=== PATIENT | male | born 1960 | race African-American/Black ===

== ENCOUNTER 2022-06-17 08:26 | Inpatient (IN) | payer OTHER, SELFPAY ==
[2022-06-17] VITALS (22 sets, daily range): BP systolic 131–178; BP diastolic 73–94; PULSE 61–74; RESP 12–24; TEMP 31–37.3; O2SAT 92–100; BMI 30.9
--- NOTE | ~2022-06-17 | XR_ITS ---
EXAMINATION: XR CHEST CLINICAL INFORMATION: TLC placement check COMPARISON: 06/17/2022 TECHNIQUE: Frontal view of the chest was obtained. FINDINGS: Right IJ central line tip lies in the region of the lower right internal jugular vein. The lungs are hypoinflated. Aeration at the retrocardiac left base appears mildly improved, with some residual opacity present. Similarly, right basilar aeration appears slightly improved, with residual heterogeneous opacity. No evidence of pneumothorax or significant pleural effusion. The cardiomediastinal contour is unremarkable. No acute osseous findings are seen. XR/XR chest 1V IMPRESSION: 1. Right IJ central line tip lies in the region of the lower right internal jugular vein. 2. Mildly improved bibasilar aeration compared to prior, with residual heterogeneous opacities.
--- NOTE | ~2022-06-17 | XR_ITS ---
EXAMINATION: XR CHEST CLINICAL INFORMATION: Post central line placement COMPARISON: Chest cribriform earlier today 06/17/2022 TECHNIQUE: Frontal view of the chest was obtained. FINDINGS: There is a new right jugular central line with its tip in the proximal SVC. Enteric tube tip is below diaphragm the stomach. Tip of endotracheal tube is 5.6 cm above the sydnie. The lungs are hyperinflated with patchy opacities in both lower lobes with dense consolidation in the left lung base retrocardiac area. Heart size and pulmonary vascularity is normal. No gross bony abnormality seen. XR/XR chest 1V IMPRESSION: 1. New right jugular central line with its tip in proximal SVC. No pneumothorax. 2. Enteric tube and endotracheal tube are in satisfactory position. 3. There is left lower lobe consolidation/atelectasis. There is a right lower lobe haziness similar to previous study.
--- NOTE | ~2022-06-17 | XR_ITS ---
EXAMINATION: XR CHEST CLINICAL INFORMATION: Altered mental status COMPARISON: None TECHNIQUE: Frontal view of the chest was obtained. FINDINGS: Endotracheal tube terminates approximately 7 cm above the level the sydnie. Enteric tube terminates below the level the diaphragm, beyond the parameters of today's chest x-ray. The cardiac silhouette is mildly enlarged. Lungs are mildly hypoinflated. Subtle diffuse opacity of the right hemithorax suggesting a layering effusion. No gross lobar consolidation identified. No pneumothorax. XR/XR chest 1V IMPRESSION: 1. Endotracheal tube terminates approximately 7 cm above the level the sydnie. 2. Suspected layering right-sided pleural effusion. This can be confirmed with CT imaging as clinically indicated.
--- NOTE | ~2022-06-17 | CT_ITS ---
EXAMINATION: CT CHEST, ABDOMEN AND PELVIS WITHOUT IV CONTRAST. CLINICAL INFORMATION: Unresponsive. COMPARISON: Chest x-ray performed earlier today at 06/17/2022 TECHNIQUE: 5 mm thin axial and reformatted 3 mm thin sagittal and coronal images of chest, abdomen and pelvis were obtained without contrast. DLP [id number]. This CT examination was performed using dose optimization technique as appropriate, variously including the following: Automated exposure control Adjustment of MA and/or KV according to patient size(this includes techniques or standardized protocols for targeted exams where dose is matched to indication/reason for exam; extremities or head. Use of iterative reconstruction techniques. FINDINGS: CHEST: LUNGS: There is compressive atelectatic changes right lower lobe and left lower lobe secondary to underlying effusion. Both upper lungs are otherwise well-expanded and clear. Mediastinum: Heart size and the great vessels are normal caliber. No abnormal size mediastinal or hilar lymph nodes seen. There are moderate coronary artery calcifications. No pericardial effusion seen. Central trachea and the bronchi are widely patent. There is an endotracheal tube with its tip 3.90 cm above the sydnie. Enteric tube is noted with its tip below the diaphragm. Pleura: There is moderate to large right and small left pleural effusions. No pleural calcifications or pneumothorax visualized. Axilla: There is no abnormal axillary lymph nodes. The chest wall appears unremarkable. Osseous structures: No aggressive lytic or sclerotic process seen. ABDOMEN AND PELVIS: Liver, ducts and gallbladder: The liver is normal size, contour and density. No focal lesion or intrahepatic ductal dilatation seen. The gallbladder is unremarkable. Spleen: Unremarkable. Pancreas: The pancreas is suboptimally visualized however appears unremarkable. Bilateral adrenal glands and kidneys: Bilateral adrenal glands are symmetric and normal. Both kidneys are normal size, shape and position. There are vascular calcifications in both kidneys. No hydronephrosis or radiopaque calculi suspected. Lymphovascular structures: The abdominal aorta is normal caliber but with scattered atherosclerotic calcifications. No abnormal size retroperitoneal lymph nodes seen. GI tract: There is scattered stool, diverticuli and gas seen throughout the colon without distention or diverticulitis. The small bowel loops are normal caliber. Appendix is not seen. There is large amount of ascites throughout the abdomen and pelvis. Abdominal wall: Unremarkable. Pelvis: There is large amount of free fluid in the pelvis. A Geronimo's catheter is noted in the bladder. Osseous structures: No aggressive lytic or sclerotic process seen. CT/CT abdomen pelvis wo IV con IMPRESSION: Diffuse ascites. Mild abdominal wall edema Moderate constipation with scattered diverticulosis. Moderate to large right pleural effusion and small left pleural effusion with underlying compressive atelectasis.
--- NOTE | ~2022-06-17 | CT_ITS ---
EXAMINATION: CT HEAD WITHOUT CONTRAST CLINICAL INFORMATION: Unresponsive. COMPARISON: None. TECHNIQUE: Multidetector volumetric imaging of the head was performed without intravenous contrast material. This CT examination was performed using dose optimization techniques as appropriate, variously including the following: *Automated exposure control *Adjustment of mA and/or kV according to patient size (this includes techniques or standardized protocols for targeted exams where dose is matched to indication/reason for exam; i.e. extremities or head) *Use of iterative reconstruction technique Dose: 865 mGy-cm FINDINGS: There is no evidence of acute intracranial hemorrhage or territorial infarction. No abnormal mass-effect or midline shift is seen. Azfar to white matter differentiation is well preserved. No extra axial fluid collections. The ventricles are normal in size and configuration. A few foci of hypoattenuation in the subcortical and periventricular white matter are most consistent with chronic microangiopathic changes. Calcific atherosclerosis is present within the cavernous segments of the internal carotid arteries. Generalized subcutaneous fat stranding is seen diffusely, likely due to anasarca. Tubes are in place in the oral cavity. Partial opacification of the right ethmoid air cells posteriorly. CT/CT head/brain wo IV con IMPRESSION: No acute intracranial pathology. Anasarca
--- NOTE | 2022-06-17 08:41 | ECG_ITS ---
Test Reason : unresponsive Blood Pressure : / mmHG Vent. Rate : 066 BPM Atrial Rate : 066 BPM P-R Int : 142 ms QRS Dur : 104 ms QT Int : 476 ms P-R-T Axes : 087 078 004 degrees QTc Int : 499 ms Normal sinus rhythm Prolonged QT Nonspecific T wave abnormality Abnormal ECG No previous ECGs available Referred By: Lillian Benz Electronically Signed By:MAGAN MASON MD
[2022-06-17 08:44] LABS: Glucose, Whole Blood 65 mg/dL (60-115)
[2022-06-17 08:56] LABS: MANUAL DIFF FLAG NO
[2022-06-17 08:58] LABS: Venous Blood Gas Refer to POC result
[2022-06-17 09:01] LABS: Basophils Absolute Auto 0.1 X10*3/uL (0.0-0.2); Eosinophils Absolute Auto 0.7 X10*3/uL (0.0-0.4); Eosinophils Percent Auto 13.8 % (0-4); Hematocrit 28.8 % (42.0-52.0); Hemoglobin 8.9 g/dl (14.0-18.0); Imm Gran Abs Auto 0.02 X10*3/uL (0.00-0.03); Imm Gran Pct Auto 0.4 % (0.0-0.4); Lymphocytes Absolute Auto 0.7 X10*3/uL (1.2-4.9); Lymphocytes Percent Auto 14.2 % (20-40); Mean Corpuscular HGB Conc 30.9 g/dl (31.0-36.0); Mean Corpuscular Hemoglobin 29.3 pg (27.0-33.0); Mean Corpuscular Volume 94.7 fL (80.0-98.0); Mean Platelet Volume 9.3 fL (9.4-12.4); Monocytes Absolute Auto 0.4 X10*3/uL (0.1-1.2); Monocytes Percent Auto 8.3 % (2-11); Neutrophils Absolute Auto 3.1 x10*3/uL (2.0-8.3); Neutrophils Percent Auto 62.3 % (45-73); Platelet Count 179 X10*3/uL (160-400); Red Blood Count 3.04 X10*6/uL (4.60-5.80); Red Cell Distribution Width 16.5 % (11.0-16.0); White Blood Count 4.9 X10*3/uL (4.8-10.8)
--- NOTE | 2022-06-17 09:01 | ED_ITS ---
HPI - Altered Mental Status General Chief Complaint: Altered Mental Status Stated Complaint: unresponsive Time Seen by Provider: 06/17/22 08:30 Source: EMS and old records reviewed Mode of arrival: EMS Limitations: altered mental status (Unresponsive.) History of Present Illness HPI narrative: 62-year-old male known history of end-stage renal disease and type 1 diabetes on insulin patient came in from [facility] after was found unresponsive and blood sugar was 30 attempt to give the patient oral glucagon and was transported to the hospital, patient in hospital is unresponsive with absence of gag reflex was a frothy bronchial secretion, patient unresponsive to neither verbal or painful stimuli. Patient was intubated and the patient chart was reviewed no old record in our hospital. Recent [facility] hospitalization for sepsis. Related Data Home Medications Medication Instructions Recorded Confirmed amlodipine 10 mg tablet 1 tab PO QAM 06/17/22 06/17/22 atorvastatin 80 mg tablet 1 tab PO DAILY 06/17/22 06/17/22 calcitriol 0.5 mcg capsule 1 mcg PO MOWEFR 06/17/22 06/17/22 carvedilol 25 mg tablet 1 tab PO BID 06/17/22 06/17/22 cholecalciferol (vitamin D3) 1,250 1,250 mcg PO QMONTH 06/17/22 06/17/22 mcg (50,000 unit) tablet clonidine 0.3 mg/24 hr weekly 0.3 mg topical SA 06/17/22 06/17/22 transdermal patch duloxetine 60 mg capsule,delayed 1 cap PO DAILY 06/17/22 06/17/22 release gabapentin 300 mg capsule 1 cap PO DAILY 06/17/22 06/17/22 insulin glargine 100 unit/mL 10 unit subcut BEDTIME 06/17/22 06/17/22 subcutaneous solution insulin lispro 100 unit/mL 1 sliding scale dose subcut 06/17/22 06/17/22 subcutaneous solution (Humalog USEASDIRECTD U-100 Insulin) losartan 100 mg tablet 100 mg PO BID 06/17/22 06/17/22 mirtazapine 15 mg tablet 1 tab PO BEDTIME 06/17/22 06/17/22 multivitamin 1 tab PO DAILY 06/17/22 06/17/22 tamsulosin 0.4 mg capsule 1 cap PO BEDTIME 06/17/22 06/17/22 trazodone 50 mg tablet 1 tab PO BEDTIME 06/17/22 06/17/22 Allergies Allergy/AdvReac Type Severity Reaction Status Date / Time No Known Allergies Allergy Verified 06/17/22 08:41 Review of Systems Review of Systems: Yes Unobtainable due to mental status (Unresponsive) [facility] Social History Social History Advance Directives: No Advance Directives Information Provided: No Physical Exam ED Vital Signs: Vital Signs - 24 hr 06/17/22 08:45 06/17/22 09:03 06/17/22 09:04 Temperature 93 F L Pulse Rate 70 63 63 Respiratory Rate 24 H 14 12 Blood Pressure 167/88 H 163/86 H 163/86 H Pulse Oximetry 92 100 100 Oxygen Delivery Method Nasal Cannula Ambu-Bag Fraction of Inspired Oxygen 06/17/22 09:14 06/17/22 09:22 06/17/22 09:26 Temperature 93 F L Pulse Rate 62 61 Respiratory Rate 16 16 Blood Pressure 146/80 H 144/73 H Pulse Oximetry 100 100 Oxygen Delivery Method Ambu-Bag Fraction of Inspired Oxygen 50 06/17/22 09:52 Temperature 93.4 F L Pulse Rate 62 Respiratory Rate 14 Blood Pressure 147/75 H Pulse Oximetry 100 Oxygen Delivery Method Mechanical Ventilation Fraction of Inspired Oxygen BMI result Body Mass Index 30.9 Vital signs have been reviewed as appeared to be correct. Blood pressure normal. Heart rate normal. Respiration rate normal. Temperature normal. Oxygen saturation normal. Appearance: Unresponsive to verbal, or painful stimuli. Head: Normal external exam. Normocephalic. Atraumatic. No Ramos signs noted. No raccoon eyes noted Eyes: 3 mm nonreactive bilaterally. ENT: TM's Normal. Pharynx normal. Uvula midline. No gag reflex. Neck: Normal inspection. Neck supple. FROM. No adenopathy. Thyroid Normal. No meningeal signs. No neck mass noted. CVS: Normal heart rate and rhythm. Heart sound normal. No murmurs noted. Pulses normal throughout. Respiratory: No respiratory distress. Able to sustain spontaneous breathing with no gag reflex, copious frothy bronchial secretion clear. Abdomen: Soft and nontender. Bowel sounds normal in all 4 quadrants. No distention noted. No organomegaly noted. No visible injury noted. Back: No CVA tenderness. Full range of motion noted. Skin: Skin warm and dry. Normal skin color. Normal skin turgor. No rashes/lesions/lacerations noted. Extremities: No lower extremity edema. Extremities exhibit normal range of motion. Extremities nontender. Neuro: Oriented X 3. Cranial nerve exam: II-XII are grossly intact No motor deficit. No sensory deficit. Reflexes normal. Course Course Course Narrative: 62-year-old male insulin-dependent diabetes and end-stage renal disease presented after [facility]responsive at the [facility] no witnessed seizure reported by the staff patient require intubation since absence of gag reflex and question of protecting his airway. Exam is consistent with volume overload will consider dialysis. ET with ventilatory support. Patient is hypothermic will cover with empirical antibiotic but no evidence of severe sepsis or septic shock at this point. Patient granted a dose of Zosyn as well covered in antibiotic. Reevaluation(s) Reevaluation #1: Case discussed with Dr. Ronquillo and was accepted to ICU. Case discussed with Dr. Borrego for emergent dialysis. Time: : Medications Administered Generic Name Dose Route Start Last Admin Trade Name Freq PRN Reason Stop Dose Admin Dextrose 25 gm 06/17/22 10:47 06/17/22 11:55 Dextrose 50 % 25 Gm/50 Ml Syringe IVPUSH 25 gm Q15M PRN Administration per Hypoglycemia Standing Ord. Protocol Propofol 1,000 mg in 100 mls @ 0 mls/hr 06/17/22 09:00 06/17/22 09:03 Diprivan IVCONT 30 mcg/kg/min .Q0M ESTELA 16.11 mls/hr Administration Protocol Per Protocol Discontinued Medications Generic Name Dose Route Start Last Admin Trade Name Freq PRN Reason Stop Dose Admin Dextrose 25 gm 06/17/22 08:50 06/17/22 09:03 Dextrose 50 % 25 Gm/50 Ml Syringe IVPUSH 06/17/22 08:51 25 gm ONCE ONE Administration Furosemide 40 mg 06/17/22 08:55 06/17/22 09:13 Furosemide 40 Mg/4 Ml Vial IVPUSH 06/17/22 08:56 40 mg ONCE ONE Administration Protocol Nitroglycerin 1 inch 06/17/22 08:55 06/17/22 09:09 Nitroglycerin 2 % Oint 1 Gm Packet TRANSDERMA 06/17/22 08:56 1 inch ONCE ONE Administration MDM - Altered Mental Status Lab Data Attestation: I reviewed the patient's lab results. Result diagrams: 06/17/22 08:48 06/17/22 08:48 Labs: Lab Results 06/17/22 06/17/22 06/17/22 Range/Units 08:40 08:46 08:48 WBC 4.9 (4.8-10.8) X10*3/uL RBC 3.04 L (4.60-5.80) X10*6/uL Hgb 8.9 L (14.0-18.0) g/dl Hct 28.8 L (42.0-52.0) % MCV 94.7 (80.0-98.0) fL MCH 29.3 (27.0-33.0) pg MCHC 30.9 L (31.0-36.0) g/dl RDW 16.5 H (11.0-16.0) % Plt Count 179 (160-400) X10*3/uL MPV 9.3 L (9.4-12.4) fL Immature Gran % (Auto) 0.4 (0.0-0.4) % Neut % (Auto) 62.3 (45-73) % Lymph % (Auto) 14.2 L (20-40) % [place] % (Auto) 8.3 (2-11) % Eos % (Auto) 13.8 H (0-4) % Baso % (Auto) 1.0 (0-2) % Lymph # (Auto) 0.7 L (1.2-4.9) X10*3/uL [place] # (Auto) 0.4 (0.1-1.2) X10*3/uL Eos # (Auto) 0.7 H (0.0-0.4) X10*3/uL Baso # (Auto) 0.1 (0.0-0.2) X10*3/uL Abs Immat Gran (auto) 0.02 (0.00-0.03) X10*3/uL Absolute Neuts (auto) 3.1 (2.0-8.3) x10*3/uL Absolute Nucleated RBC 0.000 (0.0-0.012) X10*3/uL Nucleated RBC % (auto) 0.0 (0.0-0.2) /100WBC PT (10.0-13.1) SEC INR (0.9-1.1) VBG pH 7.39 (7.32-7.43) VBG pCO2 55 mmHg VBG pO2 100 mmHg VBG HCO3 33 H (22-26) mmol/L VBG O2 Saturation 100.3 % VBG Base Excess 7.3 mmol/L Sodium (135-145) mmol/L Potassium (3.3-5.1) mmol/L Chloride (96-108) mmol/L Carbon Dioxide (22-29) mmol/L Anion Gap (12-20) BUN (9-16) mg/dL Creatinine (0.5-1.4) mg/dL Estim Creat Clear Calc Estimated GFR POC Glucose 65 (60-115) mg/dL Random Glucose (60-115) mg/dL Lactic Acid (0.5-2.0) mmol/L Calcium (8.4-10.2) mg/dL Magnesium (1.6-2.6) mg/dL Total Bilirubin (0.0-1.0) mg/dL Direct Bilirubin (0.0-0.5) mg/dL AST (5-37) U/L ALT (0-40) U/L Alkaline Phosphatase (39-117) U/L Total Creatine Kinase (38-174) U/L Troponin I High Sens (<3.5-35.0) ng/L B-Natriuretic Peptide (<100) pg/mL Total Protein (6.5-8.0) g/dL Albumin (3.5-5.0) g/dL Lipase (8-78) U/L Urine Color Urine Appearance Urine pH (5.0-9.0) Ur Specific [place] (1.005-1.025) Urine Protein (Neg-Trace) mg/dL Urine Glucose (UA) (Negative) mg/dL Urine Ketones (Negative) mg/dL Urine Blood (Negative) Urine Nitrite (Negative) Ur Leukocyte Esterase (Negative) Urine RBC (0-2) /HPF Urine WBC (0-5) /HPF Ur Squamous Epith Cells (0-2) /HPF Ur Renal Epithelial Cell Urine Bacteria (None Seen) Hyaline Casts (0-2) /LPF Urine Opiates Screen (Not Detect) Urine Fentanyl Screen (Not Detect) Ur Barbiturates Screen (Not Detect) Ur Phencyclidine Scrn (Not Detect) Ur Amphetamines Screen (Not Detect) U Benzodiazepines Scrn (Not Detect) Urine Cocaine Screen (Not Detect) U Marijuana (THC) Screen (Not Detect) COVID-19 (LAKISHA) (Negative) COVID-19 Clin Com 06/17/22 06/17/22 06/17/22 Range/Units 08:48 08:48 08:48 WBC (4.8-10.8) X10*3/uL RBC (4.60-5.80) X10*6/uL Hgb (14.0-18.0) g/dl Hct (42.0-52.0) % MCV (80.0-98.0) fL MCH (27.0-33.0) pg MCHC (31.0-36.0) g/dl RDW (11.0-16.0) % Plt Count (160-400) X10*3/uL MPV (9.4-12.4) fL Immature Gran % (Auto) (0.0-0.4) % Neut % (Auto) (45-73) % Lymph % (Auto) (20-40) % [place] % (Auto) (2-11) % Eos % (Auto) (0-4) % Baso % (Auto) (0-2) % Lymph # (Auto) (1.2-4.9) X10*3/uL [place] # (Auto) (0.1-1.2) X10*3/uL Eos # (Auto) (0.0-0.4) X10*3/uL Baso # (Auto) (0.0-0.2) X10*3/uL Abs Immat Gran (auto) (0.00-0.03) X10*3/uL Absolute Neuts (auto) (2.0-8.3) x10*3/uL Absolute Nucleated RBC (0.0-0.012) X10*3/uL Nucleated RBC % (auto) (0.0-0.2) /100WBC PT 13.6 H (10.0-13.1) SEC INR 1.2 H (0.9-1.1) VBG pH (7.32-7.43) VBG pCO2 mmHg VBG pO2 mmHg VBG HCO3 (22-26) mmol/L VBG O2 Saturation % VBG Base Excess mmol/L Sodium 133 L (135-145) mmol/L Potassium 3.3 (3.3-5.1) mmol/L Chloride 95 L (96-108) mmol/L Carbon Dioxide 31 H (22-29) mmol/L Anion Gap 10 L (12-20) BUN 26 H (9-16) mg/dL Creatinine 4.20 H* (0.5-1.4) mg/dL Estim Creat Clear Calc 19.9 Estimated GFR 15 POC Glucose (60-115) mg/dL Random Glucose 61 (60-115) mg/dL Lactic Acid 0.8 (0.5-2.0) mmol/L Calcium 8.8 (8.4-10.2) mg/dL Magnesium 1.8 (1.6-2.6) mg/dL Total Bilirubin 0.6 (0.0-1.0) mg/dL Direct Bilirubin 0.2 (0.0-0.5) mg/dL AST 19 (5-37) U/L ALT 10 (0-40) U/L Alkaline Phosphatase 104 (39-117) U/L Total Creatine Kinase 93 (38-174) U/L Troponin I High Sens (<3.5-35.0) ng/L B-Natriuretic Peptide (<100) pg/mL Total Protein 7.1 (6.5-8.0) g/dL Albumin 3.6 (3.5-5.0) g/dL Lipase 18 (8-78) U/L Urine Color Urine Appearance Urine pH (5.0-9.0) Ur Specific [place]yer[place] (1.005-1.025) Urine Protein (Neg-Trace) mg/dL Urine Glucose (UA) (Negative) mg/dL Urine Ketones (Negative) mg/dL Urine Blood (Negative) Urine Nitrite (Negative) Ur Leukocyte Esterase (Negative) Urine RBC (0-2) /HPF Urine WBC (0-5) /HPF Ur Squamous Epith Cells (0-2) /HPF Ur Renal Epithelial Cell Urine Bacteria (None Seen) Hyaline Casts (0-2) /LPF Urine Opiates Screen (Not Detect) Urine Fentanyl Screen (Not Detect) Ur Barbiturates Screen (Not Detect) Ur Phencyclidine Scrn (Not Detect) Ur Amphetamines Screen (Not Detect) U Benzodiazepines Scrn (Not Detect) Urine Cocaine Screen (Not Detect) U Marijuana (THC) Screen (Not Detect) COVID-19 (LAKISHA) (Negative) COVID-19 Clin Com 06/17/22 06/17/22 06/17/22 Range/Units 08:48 08:48 08:48 WBC (4.8-10.8) X10*3/uL RBC (4.60-5.80) X10*6/uL Hgb (14.0-18.0) g/dl Hct (42.0-52.0) % MCV (80.0-98.0) fL MCH (27.0-33.0) pg MCHC (31.0-36.0) g/dl RDW (11.0-16.0) % Plt Count (160-400) X10*3/uL MPV (9.4-12.4) fL Immature Gran % (Auto) (0.0-0.4) % Neut % (Auto) (45-73) % Lymph % (Auto) (20-40) % [place] % (Auto) (2-11) % Eos % (Auto) (0-4) % Baso % (Auto) (0-2) % Lymph # (Auto) (1.2-4.9) X10*3/uL [place] # (Auto) (0.1-1.2) X10*3/uL Eos # (Auto) (0.0-0.4) X10*3/uL Baso # (Auto) (0.0-0.2) X10*3/uL Abs Immat Gran (auto) (0.00-0.03) X10*3/uL Absolute Neuts (auto) (2.0-8.3) x10*3/uL Absolute Nucleated RBC (0.0-0.012) X10*3/uL Nucleated RBC % (auto) (0.0-0.2) /100WBC PT (10.0-13.1) SEC INR (0.9-1.1) VBG pH (7.32-7.43) VBG pCO2 mmHg VBG pO2 mmHg VBG HCO3 (22-26) mmol/L VBG O2 Saturation % VBG Base Excess mmol/L Sodium (135-145) mmol/L Potassium (3.3-5.1) mmol/L Chloride (96-108) mmol/L Carbon Dioxide (22-29) mmol/L Anion Gap (12-20) BUN (9-16) mg/dL Creatinine (0.5-1.4) mg/dL Estim Creat Clear Calc Estimated GFR POC Glucose (60-115) mg/dL Random Glucose (60-115) mg/dL Lactic Acid (0.5-2.0) mmol/L Calcium (8.4-10.2) mg/dL Magnesium (1.6-2.6) mg/dL Total Bilirubin (0.0-1.0) mg/dL Direct Bilirubin (0.0-0.5) mg/dL AST (5-37) U/L ALT (0-40) U/L Alkaline Phosphatase (39-117) U/L Total Creatine Kinase (38-174) U/L Troponin I High Sens 13.0 (<3.5-35.0) ng/L B-Natriuretic Peptide 3555 H (<100) pg/mL Total Protein (6.5-8.0) g/dL Albumin (3.5-5.0) g/dL Lipase (8-78) U/L Urine Color Urine Appearance Urine pH (5.0-9.0) Ur Specific [place] (1.005-1.025) Urine Protein (Neg-Trace) mg/dL Urine Glucose (UA) (Negative) mg/dL Urine Ketones (Negative) mg/dL Urine Blood (Negative) Urine Nitrite (Negative) Ur Leukocyte Esterase (Negative) Urine RBC (0-2) /HPF Urine WBC (0-5) /HPF Ur Squamous Epith Cells (0-2) /HPF Ur Renal Epithelial Cell Urine Bacteria (None Seen) Hyaline Casts (0-2) /LPF Urine Opiates Screen (Not Detect) Urine Fentanyl Screen (Not Detect) Ur Barbiturates Screen (Not Detect) Ur Phencyclidine Scrn (Not Detect) Ur Amphetamines Screen (Not Detect) U Benzodiazepines Scrn (Not Detect) Urine Cocaine Screen (Not Detect) U Marijuana (THC) Screen (Not Detect) COVID-19 (LAKISHA) Negative (Negative) COVID-19 Clin Com See Note 06/17/22 06/17/22 Range/Units 09:06 09:06 WBC (4.8-10.8) X10*3/uL RBC (4.60-5.80) X10*6/uL Hgb (14.0-18.0) g/dl Hct (42.0-52.0) % MCV (80.0-98.0) fL MCH (27.0-33.0) pg MCHC (31.0-36.0) g/dl RDW (11.0-16.0) % Plt Count (160-400) X10*3/uL MPV (9.4-12.4) fL Immature Gran % (Auto) (0.0-0.4) % Neut % (Auto) (45-73) % Lymph % (Auto) (20-40) % [place] % (Auto) (2-11) % Eos % (Auto) (0-4) % Baso % (Auto) (0-2) % Lymph # (Auto) (1.2-4.9) X10*3/uL [place] # (Auto) (0.1-1.2) X10*3/uL Eos # (Auto) (0.0-0.4) X10*3/uL Baso # (Auto) (0.0-0.2) X10*3/uL Abs Immat Gran (auto) (0.00-0.03) X10*3/uL Absolute Neuts (auto) (2.0-8.3) x10*3/uL Absolute Nucleated RBC (0.0-0.012) X10*3/uL Nucleated RBC % (auto) (0.0-0.2) /100WBC PT (10.0-13.1) SEC INR (0.9-1.1) VBG pH (7.32-7.43) VBG pCO2 mmHg VBG pO2 mmHg VBG HCO3 (22-26) mmol/L VBG O2 Saturation % VBG Base Excess mmol/L Sodium (135-145) mmol/L Potassium (3.3-5.1) mmol/L Chloride (96-108) mmol/L Carbon Dioxide (22-29) mmol/L Anion Gap (12-20) BUN (9-16) mg/dL Creatinine (0.5-1.4) mg/dL Estim Creat Clear Calc Estimated GFR POC Glucose (60-115) mg/dL Random Glucose (60-115) mg/dL Lactic Acid (0.5-2.0) mmol/L Calcium (8.4-10.2) mg/dL Magnesium (1.6-2.6) mg/dL Total Bilirubin (0.0-1.0) mg/dL Direct Bilirubin (0.0-0.5) mg/dL AST (5-37) U/L ALT (0-40) U/L Alkaline Phosphatase (39-117) U/L Total Creatine Kinase (38-174) U/L Troponin I High Sens (<3.5-35.0) ng/L B-Natriuretic Peptide (<100) pg/mL Total Protein (6.5-8.0) g/dL Albumin (3.5-5.0) g/dL Lipase (8-78) U/L Urine Color Yellow Urine Appearance Clear Urine pH 7.5 (5.0-9.0) Ur Specific [place] 1.010 (1.005-1.025) Urine Protein 300 (3+) H (Neg-Trace) mg/dL Urine Glucose (UA) 100 H (Negative) mg/dL Urine Ketones Negative (Negative) mg/dL Urine Blood Small (1+) H (Negative) Urine Nitrite Negative (Negative) Ur Leukocyte Esterase Negative (Negative) Urine RBC 6-10 H (0-2) /HPF Urine WBC 0-5 (0-5) /HPF Ur Squamous Epith Cells 3-5 (0-2) /HPF Ur Renal Epithelial Cell Present Urine Bacteria None Seen (None Seen) Hyaline Casts 0-2 (0-2) /LPF Urine Opiates Screen Not Detected (Not Detect) Urine Fentanyl Screen Not Detected (Not Detect) Ur Barbiturates Screen Not Detected (Not Detect) Ur Phencyclidine Scrn Not Detected (Not Detect) Ur Amphetamines Screen Not Detected (Not Detect) U Benzodiazepines Scrn Not Detected (Not Detect) Urine Cocaine Screen Not Detected (Not Detect) U Marijuana (THC) Screen Not Detected (Not Detect) COVID-19 (LAKISHA) (Negative) COVID-19 Clin Com Imaging Data Head CT: Attestation: I personally reviewed and interpreted this imaging study as follows: Radiologist's impression: No acute intracranial pathology. Anasarca ? Chest CT: Attestation: I personally reviewed and interpreted this imaging study as follows: Radiologist's impression: Diffuse ascites. Mild abdominal wall edema ? Moderate constipation with scattered diverticulosis. ? Moderate to large right pleural effusion and small left pleural effusion with underlying compressive atelectasis. Procedures Central Line Placement Right IJ: Time Out Performed: Yes Patient Placed on Monitor/Pulse Ox: Yes MD Prep: mask, gown and gloves Central Line Prep: Chlorhexidine scrub Local Anesthetic: lidocaine 1% Amount of anesthesia used (mL): 1 Ultrasound Used for Placement: Yes Central Line Lumen Inserted: triple Post Procedure: sutured in place, good blood return, all ports aspirated, flushed, capped (The brown port is flushing but no blood return.) and sterile dressing applied Post Procedure X-Ray: tip of catheter in good position Patient Tolerated Procedure: well Complications: none Intubation Time out performed: Yes sedative: none Laryngoscope: Hunter ET Tube Size: 7.5 ET Tube Uncuffed: No Tube Secured Depth (cm): 26 Tube Secured Location: lips Tube Placement Confirmation: visualized tube passing through cords, equal breath sounds bilaterally, no breath sounds over epigastrium and confirmation by capnometry Patient Tolerated Procedure: well Intubation Complications: none Critical Care Time Critical Care Time Critical Care Time: Yes Total Critical Care Time: 60 Attestation: I spent 60 minutes providing critical care service to the patient, this including time spent at the bedside to evaluate the patient, reassess the patient, monitoring vital signs, review labs, and radiographic studies, counseling the patient/family, discussing the case with consultants, disposition the patient. Discharge Plan Discharge Clinical Impression: ESRD (end stage renal disease) on dialysis, Hypoglycemia, Unresponsive, Hypothermia Patient Disposition: Admitted As Inpatient
[2022-06-17] MEDS: Dextrose 50 % 25 GM/50 ML SYRINGE IVPUSH ×9 (09:03→22:48)
[2022-06-17] MEDS: propofoL 1,000 MG/100 ML VIAL 16.11 MG IVCONT ×2 (09:03→13:34)
[2022-06-17] MEDS: Nitroglycerin 2 % Oint 1 GM Packet 1 INCH TRANSDERMA (09:09)
[2022-06-17] MEDS: Furosemide 40 MG/4 ML VIAL IVPUSH (09:13)
[2022-06-17 09:15] LABS: Lactic Acid 0.8 mmol/L (0.5-2.0)
[2022-06-17 09:15] LABS: Appearance Urine Clear; Color Urine Yellow; Glucose Urine UA 100 mg/dL (Negative); Leukocyte Esterase Urine Negative (Negative); Nitrite Urine Negative (Negative); PH 7.5 (5.0-9.0); UMIC TRIGGER UACC YES; Urine Blood Small (1+) (Negative); Urine Ketones Negative (Negative); Urine Protein 300 (3+) mg/dL (Neg-Trace)
--- NOTE | 2022-06-17 09:15 | PC.NURSE ---
INTUBATED BY DR FOOTE WITHOUT DIFFICULTY, GLIDE SCOPE UTILIZED , 7.5 ET tube 26 at the lip. confirmed by ETCO2 AND AUSCULTATION OG TUBE PLACED
[2022-06-17 09:23] LABS: COVID-19 Test Negative (Negative); IDNOW Serial# 9DB6401D; INTERNATIONAL NORM RATIO 1.2 (0.9-1.1); Prothrombin Time 13.6 SEC (10.0-13.1)
[2022-06-17 09:23] LABS: VBG Base Excess 7.3 mmol/L; VBG pCO2 55 mmHg; VBG pH 7.39 (7.32-7.43); VBG pO2 100 mmHg
[2022-06-17 09:24] LABS: VBG HCO3 33 mmol/L (22-26); VBG O2 % Saturation 100.3 %
[2022-06-17 09:26] LABS: Amphetamine Screen Urine Not Detected (Not Detect); Barbiturates, Urine Not Detected (Not Detect); Benzodiazepines Screen Urine Not Detected (Not Detect); Cannabinoid Screen Urine Not Detected (Not Detect); Cocaine Screen Urine Not Detected (Not Detect); Fentanyl, urine Not Detected (Not Detect); Opiate Screen Urine Not Detected (Not Detect); Phencyclidine Screen Urine Not Detected (Not Detect); WBC Urine 0-5 /HPF (0-5)
[2022-06-17 09:27] LABS: Bacteria Urine None Seen (None Seen); Hyaline Casts Urine 0-2 /LPF (0-2); Renal Epithelial Cells Urine Present
[2022-06-17 09:32] LABS: Alanine Aminotransferase 10 U/L (0-40); Albumin Level 3.6 g/dL (3.5-5.0); Alkaline Phosphatase 104 U/L (39-117); Anion Gap 10 (12-20); Aspartate Amino Transferase 19 U/L (5-37); Bilirubin Direct 0.2 mg/dL (0.0-0.5); Bilirubin Total 0.6 mg/dL (0.0-1.0); Blood Urea Nitrogen 26 mg/dL (9-16); Calcium 8.8 mg/dL (8.4-10.2); Carbon Dioxide 31 mmol/L (22-29); Chloride 95 mmol/L (96-108); Creatinine Clr Calc Pharmacy 19.9; Estimated Glomerular Filt Rate 15; Glucose Random 61 mg/dL (60-115); Lipase 18 U/L (8-78); Magnesium 1.8 mg/dL (1.6-2.6); Potassium 3.3 mmol/L (3.3-5.1); Sodium 133 mmol/L (135-145); Total Protein 7.1 g/dL (6.5-8.0)
--- NOTE | 2022-06-17 09:32 | PM.PNNEP ---
Subjective Subjective Date of Service: 06/17/22 Physical Exam Vital Signs: Vital Signs: Last Vital Signs Temp 93 F L 06/17/22 09:14 Pulse 61 06/17/22 09:26 Resp 16 06/17/22 09:26 BP 144/73 H 06/17/22 09:26 Pulse Ox 100 06/17/22 09:26 O2 Del Method 06/17/22 09:14 Oxygen Flow Rate 7 06/17/22 08:45 BMI result Body Mass Index 30.9 Objective Data Labs CBC & Chem 7: 06/17/22 08:48 06/17/22 08:48 Labs: Laboratory Results - last 24 hr 06/17/22 06/17/22 06/17/22 08:40 08:46 08:48 WBC 4.9 RBC 3.04 L Hgb 8.9 L Hct 28.8 L MCV 94.7 MCH 29.3 MCHC 30.9 L RDW 16.5 H Plt Count 179 MPV 9.3 L Immature Gran % (Auto) 0.4 Neut % (Auto) 62.3 Lymph % (Auto) 14.2 L Summers % (Auto) 8.3 Eos % (Auto) 13.8 H Baso % (Auto) 1.0 Lymph # (Auto) 0.7 L [place] # (Auto) 0.4 Eos # (Auto) 0.7 H Baso # (Auto) 0.1 Abs Immat Gran (auto) 0.02 Absolute Neuts (auto) 3.1 Absolute Nucleated RBC 0.000 Nucleated RBC % (auto) 0.0 PT INR VBG pH 7.39 VBG pCO2 55 VBG pO2 100 VBG HCO3 33 H VBG O2 Saturation 100.3 VBG Base Excess 7.3 POC Glucose 65 Lactic Acid Troponin I High Sens Urine Color Urine Appearance Urine pH Ur Specific [place] Urine Protein Urine Glucose (UA) Urine Ketones Urine Blood Urine Nitrite Ur Leukocyte Esterase Urine RBC Urine WBC Ur Squamous Epith Cells Ur Renal Epithelial Cell Urine Bacteria Hyaline Casts Urine Opiates Screen Urine Fentanyl Screen Ur Barbiturates Screen Ur Phencyclidine Scrn Ur Amphetamines Screen U Benzodiazepines Scrn Urine Cocaine Screen U Marijuana (THC) Screen COVID-19 (LAKISHA) COVID-19 Clin Com 06/17/22 06/17/22 06/17/22 08:48 08:48 08:48 WBC RBC Hgb Hct MCV MCH MCHC RDW Plt Count MPV Immature Gran % (Auto) Neut % (Auto) Lymph % (Auto) [place] % (Auto) Eos % (Auto) Baso % (Auto) Lymph # (Auto) [place] # (Auto) Eos # (Auto) Baso # (Auto) Abs Immat Gran (auto) Absolute Neuts (auto) Absolute Nucleated RBC Nucleated RBC % (auto) PT 13.6 H INR 1.2 H VBG pH VBG pCO2 VBG pO2 VBG HCO3 VBG O2 Saturation VBG Base Excess POC Glucose Lactic Acid 0.8 Troponin I High Sens 13.0 Urine Color Urine Appearance Urine pH Ur Specific [place] Urine Protein Urine Glucose (UA) Urine Ketones Urine Blood Urine Nitrite Ur Leukocyte Esterase Urine RBC Urine WBC Ur Squamous Epith Cells Ur Renal Epithelial Cell Urine Bacteria Hyaline Casts Urine Opiates Screen Urine Fentanyl Screen Ur Barbiturates Screen Ur Phencyclidine Scrn Ur Amphetamines Screen U Benzodiazepines Scrn Urine Cocaine Screen U Marijuana (THC) Screen COVID-19 (LAKISHA) COVID-19 Clin Com 06/17/22 06/17/22 06/17/22 08:48 09:06 09:06 WBC RBC Hgb Hct MCV MCH MCHC RDW Plt Count MPV Immature Gran % (Auto) Neut % (Auto) Lymph % (Auto) [place] % (Auto) Eos % (Auto) Baso % (Auto) Lymph # (Auto) [place] # (Auto) Eos # (Auto) Baso # (Auto) Abs Immat Gran (auto) Absolute Neuts (auto) Absolute Nucleated RBC Nucleated RBC % (auto) PT INR VBG pH VBG pCO2 VBG pO2 VBG HCO3 VBG O2 Saturation VBG Base Excess POC Glucose Lactic Acid Troponin I High Sens Urine Color Yellow Urine Appearance Clear Urine pH 7.5 Ur Specific [place]our[place] 1.010 Urine Protein 300 (3+) H Urine Glucose (UA) 100 H Urine Ketones Negative Urine Blood Small (1+) H Urine Nitrite Negative Ur Leukocyte Esterase Negative Urine RBC 6-10 H Urine WBC 0-5 Ur Squamous Epith Cells 3-5 Ur Renal Epithelial Cell Present Urine Bacteria None Seen Hyaline Casts 0-2 Urine Opiates Screen Not Detected Urine Fentanyl Screen Not Detected Ur Barbiturates Screen Not Detected Ur Phencyclidine Scrn Not Detected Ur Amphetamines Screen Not Detected U Benzodiazepines Scrn Not Detected Urine Cocaine Screen Not Detected U Marijuana (THC) Screen Not Detected COVID-19 ([facility]) Negative COVID-19 Clin Com See Note Procedures Date of Service Date of Service: 06/17/22 Assessment & Plan Assessment and plan (1) ESRD (end stage renal disease) on dialysis: Status: Acute Assessment and Plan: well know to me goes to [facility] admitted with flash PE and now intubated in the ICU urgent HD ordered with fluid removaL Has had multiple recurrent admissions at [facility] with similar presentations Time Spent With Patient Time: Total time spent is greater than 50% in coordination of care (as documented) at patient's floor/unit and/or counseling patient:
[2022-06-17 09:33] LABS: B Type Natriuretic Peptide 3555 pg/mL (<100)
--- NOTE | 2022-06-17 10:06 | PC.RT ---
Pt arrive ED unresponsive, intubated by with 7.5 ETT x one attempt without diff. Tube placement confirmed bilat LS, condensate, ETCO2 and cxr. Pt placed on portable vent for transport to CT Scan and ICU. RR 18, vt 400ml and fio2 50%. RT present.
--- NOTE | 2022-06-17 10:38 | PHA.MEDREC ---
Pharmacy Consult ? Medication Reconciliation Pharmacy has completed the medication reconciliation. [facility] from [facility]. Sulma McginnisD
--- NOTE | 2022-06-17 11:25 | PC.NURSE ---
PT PLACED ON THE SAURABH HUGGER, CORE TEMP 93.9
--- NOTE | 2022-06-17 11:55 | PC.NURSE ---
DR FOOTE AT THE BEDSIDE TO PLACE CENTRAL LINE ACCESS. PT WAS MEDICATED FOR SEVERE HYPOGYLCEMIA. POC WAS 18
[2022-06-17 12:02] LABS: Glucose, Whole Blood 18 mg/dL (60-115)
[2022-06-17 12:18] LABS: Glucose, Whole Blood 81 mg/dL (60-115)
[2022-06-17 13:15] LABS: Glucose, Whole Blood 90 mg/dL (60-115)
[2022-06-17 13:15] LABS: Glucose, Whole Blood 37 mg/dL (60-115)
[2022-06-17] MEDS: Chlorhexidine Gluc Oral Rinse 15 ML MOUTHWASH BUCCAL ×2 (13:35→22:09)
[2022-06-17] MEDS: Heparin Sodium,Porcine 5,000 UNIT/ML VIAL 5000 UNIT SUBCUT ×2 (13:35→22:08)
[2022-06-17] MEDS: Piperacillin Sodium/Tazobactam 3.375 GM in 0.9 % Sodium Chloride 50 ML IV (13:36)
--- NOTE | 2022-06-17 13:44 | P.HPCC_ITS ---
History of Present Illness Date of Service: 06/17/22 Attending physician on admission: Andressa Ronquillo Chief Complaint: Altered mental status 62-year-old insulin-dependent diabetic male with end-stage renal disease and dialysis dependence also known to be hypertensive and hyperlipidemic in was found unresponsive in his bed and a nursing facility Glucose was less than 30 and he was given D50 and was brought to the hospital and he has never recovered consciousness not even to deep pain essentially remains flaccid initially with 3 mm a but symmetric pupils now they are about 5 mm and they are responsive to light and remains symmetric but he continues to remain comatose and unresponsive even to deep pain and on multiple occasions throughout the day without there having been any insulin administered he continues to remain intractably hypoglycemic and despite a D5W ongoing drip that he has He remains mildly hypertensive bedside echo showing concentric left ventricular hypertrophy but greater than 60% ejection fraction with no primary valve or pericardial disease and days chest x-ray shows but bilateral pleural effusions right greater than left corroborated on CT scan of the chest with no infiltrate and abdominal CT scan basically benign showing nothing and same with his head CT scan While intubated he was given propofol as well as 4 mg of IV Versed and he did not awaken there was no particular response sedation was withheld and at that point He was also noted to be hypothermic and he was cultured those cultures are pending but no source found through is CT scanning and 3 urinalysis Review of Systems Review of Systems: Yes Unobtainable due to mental status PMFSH Past Medical History Medical History (Updated 06/17/22 @ 13:54 by Andressa Ronquillo MD) Hypertensive cardiopathy Social History Social History Advance Directives: No Advance Directives Information Provided: No Meds Allergies Allergy/AdvReac Type Severity Reaction Status Date / Time No Known Allergies Allergy Verified 06/17/22 08:41 Active Medications: Current Medications Chlorhexidine Gluconate (Chlorhexidine Gluc Oral Rinse 15 Ml Mouthwash) 15 ml BUCCAL Q8H [facility] Last Admin: 06/17/22 13:35 Dose: 15 ml Dextrose (Dextrose 50 % 25 Gm/50 Ml Syringe) 25 gm IVPUSH Q15M PRN; Protocol PRN Reason: per Hypoglycemia Standing Ord. Last Admin: 06/17/22 12:55 Dose: 25 gm Famotidine (Famotidine/Pf 20 Mg/2 Ml Vial) 20 mg IVPUSH BID [facility] Glucose (Glucose Gel 15 Gm Gel..Gram.) 15 gm PO Q15M PRN; Protocol PRN Reason: per Hypoglycemia Standing Ord. Heparin Sodium (Porcine) (Heparin Sodium,Porcine 5,000 Unit/Ml Vial) 5,000 unit SUBCUT Q12H [facility] Last Admin: 06/17/22 13:35 Dose: 5,000 unit Propofol (Diprivan) 1,000 mg in 100 mls @ 0 mls/hr IVCONT .Q0M [facility]; Protocol Last Admin: 06/17/22 13:34 Dose: 30 mcg/kg/min, 16.11 mls/hr Dextrose (D10) 1,000 mls @ 50 mls/hr IVCONT .Q20H [facility] Pharmacy Consult (Consult Rx Perform Med Rec) 1 each MISCELLANE ONCE PRN PRN Reason: Consult order Home Medications Medication Instructions Recorded Confirmed Last Taken Type amlodipine 10 mg tablet 1 tab PO QAM 06/17/22 06/17/22 06/16/22 History atorvastatin 80 mg tablet 1 tab PO DAILY 06/17/22 06/17/22 06/16/22 History calcitriol 0.5 mcg capsule 1 mcg PO MOWEFR 06/17/22 06/17/22 06/15/22 History carvedilol 25 mg tablet 1 tab PO BID 06/17/22 06/17/22 06/16/22 History cholecalciferol (vitamin D3) 1,250 1,250 mcg PO QMONTH 06/17/22 06/17/22 06/03/22 History mcg (50,000 unit) tablet clonidine 0.3 mg/24 hr weekly 0.3 mg topical SA 06/17/22 06/17/22 06/16/22 History transdermal patch duloxetine 60 mg capsule,delayed 1 cap PO DAILY 06/17/22 06/17/22 06/16/22 Histo ry release gabapentin 300 mg capsule 1 cap PO DAILY 06/17/22 06/17/22 06/16/22 History insulin glargine 100 unit/mL 10 unit subcut BEDTIME 06/17/22 06/17/22 06/16/22 History subcutaneous solution insulin lispro 100 unit/mL 1 sliding scale dose subcut 06/17/22 06/17/22 06/16/22 History subcutaneous solution (Humalog USEASDIRECTD U-100 Insulin) losartan 100 mg tablet 100 mg PO BID 06/17/22 06/17/22 06/16/22 History mirtazapine 15 mg tablet 1 tab PO BEDTIME 06/17/22 06/17/22 06/16/22 History multivitamin 1 tab PO DAILY 06/17/22 06/17/22 06/16/22 History tamsulosin 0.4 mg capsule 1 cap PO BEDTIME 06/17/22 06/17/22 06/16/22 History trazodone 50 mg tablet 1 tab PO BEDTIME 06/17/22 06/17/22 06/16/22 History Physical Exam Vital Signs: Vital Signs: Last Vital Signs Temp 94.1 F L 06/17/22 11:57 Pulse 67 06/17/22 11:57 Resp 16 06/17/22 11:57 BP 165/87 H 06/17/22 11:57 Pulse Ox 100 06/17/22 11:57 O2 Del Method 06/17/22 11:57 O2 Flow Rate 50 06/17/22 11:57 FiO2 50 06/17/22 12:37 Oxygen Flow Rate 7 06/17/22 08:45 BMI result Body Mass Index 30.9 Have vital signs are stable heart rate of 67 and sinus rhythm and EKG without ST segment change and oxygen saturation on the ventilator is 100% and he remains completely comatose even to deep pain Cardiac exam at by bedside echo as described above Lungs with bilateral and right greater than left pleural effusion but definitely not fluid overloaded and IVC diameter is small with significant inspiratory collapse Abdomen soft no organomegaly Skin is intact no cellulitis Results Labs CBC and Chem 7: 06/17/22 08:48 06/17/22 08:48 Labs: Laboratory Results - last 24 hr 06/17/22 06/17/22 06/17/22 08:40 08:46 08:48 MCV 94.7 MCH 29.3 MCHC 30.9 L RDW 16.5 H Plt Count 179 MPV 9.3 L Immature Gran % (Auto) 0.4 Neut % (Auto) 62.3 Lymph % (Auto) 14.2 L Mcpherson % (Auto) 8.3 Eos % (Auto) 13.8 H Baso % (Auto) 1.0 Lymph # (Auto) 0.7 L Mcpherson # (Auto) 0.4 Eos # (Auto) 0.7 H Baso # (Auto) 0.1 Abs Immat Gran (auto) 0.02 Absolute Neuts (auto) 3.1 Absolute Nucleated RBC 0.000 Nucleated RBC % (auto) 0.0 PT INR VBG pH 7.39 VBG pCO2 55 VBG pO2 100 VBG HCO3 33 H VBG O2 Saturation 100.3 VBG Base Excess 7.3 Anion Gap Estim Creat Clear Calc Estimated GFR POC Glucose 65 Random Glucose Lactic Acid Calcium Magnesium Total Bilirubin Direct Bilirubin AST ALT Alkaline Phosphatase Total Creatine Kinase Troponin I High Sens B-Natriuretic Peptide Total Protein Albumin Lipase Urine Color Urine Appearance Urine pH Ur Specific Morrill Urine Protein Urine Glucose (UA) Urine Ketones Urine Blood Urine Nitrite Ur Leukocyte Esterase Urine RBC Urine WBC Ur Squamous Epith Cells Ur Renal Epithelial Cell Urine Bacteria Hyaline Casts Urine Opiates Screen Urine Fentanyl Screen Ur Barbiturates Screen Ur Phencyclidine Scrn Ur Amphetamines Screen U Benzodiazepines Scrn Urine Cocaine Screen U Marijuana (THC) Screen COVID-19 ([facility]) COVID-19 Clin Com 06/17/22 06/17/22 06/17/22 08:48 08:48 08:48 MCV MCH MCHC RDW Plt Count MPV Immature Gran % (Auto) Neut % (Auto) Lymph % (Auto) Mcpherson % (Auto) Eos % (Auto) Baso % (Auto) Lymph # (Auto) Mcpherson # (Auto) Eos # (Auto) Baso # (Auto) Abs Immat Gran (auto) Absolute Neuts (auto) Absolute Nucleated RBC Nucleated RBC % (auto) PT 13.6 H INR 1.2 H VBG pH VBG pCO2 VBG pO2 VBG HCO3 VBG O2 Saturation VBG Base Excess Anion Gap 10 L Estim Creat Clear Calc 19.9 Estimated GFR 15 POC Glucose Random Glucose 61 Lactic Acid 0.8 Calcium 8.8 Magnesium 1.8 Total Bilirubin 0.6 Direct Bilirubin 0.2 AST 19 ALT 10 Alkaline Phosphatase 104 Total Creatine Kinase 93 Troponin I High Sens B-Natriuretic Peptide Total Protein 7.1 Albumin 3.6 Lipase 18 Urine Color Urine Appearance Urine pH Ur Specific Morrill Urine Protein Urine Glucose (UA) Urine Ketones Urine Blood Urine Nitrite Ur Leukocyte Esterase Urine RBC Urine WBC Ur Squamous Epith Cells Ur Renal Epithelial Cell Urine Bacteria Hyaline Casts Urine Opiates Screen Urine Fentanyl Screen Ur Barbiturates Screen Ur Phencyclidine Scrn Ur Amphetamines Screen U Benzodiazepines Scrn Urine Cocaine Screen U Marijuana (THC) Screen COVID-19 ([facility]) COVID-19 Clin Com 06/17/22 06/17/22 06/17/22 08:48 08:48 08:48 MCV MCH MCHC RDW Plt Count MPV Immature Gran % (Auto) Neut % (Auto) Lymph % (Auto) Mcpherson % (Auto) Eos % (Auto) Baso % (Auto) Lymph # (Auto) Mcpherson # (Auto) Eos # (Auto) Baso # (Auto) Abs Immat Gran (auto) Absolute Neuts (auto) Absolute Nucleated RBC Nucleated RBC % (auto) PT INR VBG pH VBG pCO2 VBG pO2 VBG HCO3 VBG O2 Saturation VBG Base Excess Anion Gap Estim Creat Clear Calc Estimated GFR POC Glucose Random Glucose Lactic Acid Calcium Magnesium Total Bilirubin Direct Bilirubin AST ALT Alkaline Phosphatase Total Creatine Kinase Troponin I High Sens 13.0 B-Natriuretic Peptide 3555 H Total Protein Albumin Lipase Urine Color Urine Appearance Urine pH Ur Specific Morrill Urine Protein Urine Glucose (UA) Urine Ketones Urine Blood Urine Nitrite Ur Leukocyte Esterase Urine RBC Urine WBC Ur Squamous Epith Cells Ur Renal Epithelial Cell Urine Bacteria Hyaline Casts Urine Opiates Screen Urine Fentanyl Screen Ur Barbiturates Screen Ur Phencyclidine Scrn Ur Amphetamines Screen U Benzodiazepines Scrn Urine Cocaine Screen U Marijuana (THC) Screen COVID-19 ([facility]) Negative COVID-19 Clin Com See Note 06/17/22 06/17/22 06/17/22 09:06 09:06 11:33 MCV MCH MCHC RDW Plt Count MPV Immature Gran % (Auto) Neut % (Auto) Lymph % (Auto) Mcpherson % (Auto) Eos % (Auto) Baso % (Auto) Lymph # (Auto) Mcpherson # (Auto) Eos # (Auto) Baso # (Auto) Abs Immat Gran (auto) Absolute Neuts (auto) Absolute Nucleated RBC Nucleated RBC % (auto) PT INR VBG pH VBG pCO2 VBG pO2 VBG HCO3 VBG O2 Saturation VBG Base Excess Anion Gap Estim Creat Clear Calc Estimated GFR POC Glucose 18 L* Random Glucose Lactic Acid Calcium Magnesium Total Bilirubin Direct Bilirubin AST ALT Alkaline Phosphatase Total Creatine Kinase Troponin I High Sens B-Natriuretic Peptide Total Protein Albumin Lipase Urine Color Yellow Urine Appearance Clear Urine pH 7.5 Ur Specific Morrill 1.010 Urine Protein 300 (3+) H Urine Glucose (UA) 100 H Urine Ketones Negative Urine Blood Small (1+) H Urine Nitrite Negative Ur Leukocyte Esterase Negative Urine RBC 6-10 H Urine WBC 0-5 Ur Squamous Epith Cells 3-5 Ur Renal Epithelial Cell Present Urine Bacteria None Seen Hyaline Casts 0-2 Urine Opiates Screen Not Detected Urine Fentanyl Screen Not Detected Ur Barbiturates Screen Not Detected Ur Phencyclidine Scrn Not Detected Ur Amphetamines Screen Not Detected U Benzodiazepines Scrn Not Detected Urine Cocaine Screen Not Detected U Marijuana (THC) Screen Not Detected COVID-19 ([facility]) COVID-19 [employer] Com 06/17/22 06/17/22 06/17/22 12:14 12:51 13:12 MCV MCH MCHC RDW Plt Count MPV Immature Gran % (Auto) Neut % (Auto) Lymph % (Auto) Mcpherson % (Auto) Eos % (Auto) Baso % (Auto) Lymph # (Auto) Mcpherson # (Auto) Eos # (Auto) Baso # (Auto) Abs Immat Gran (auto) Absolute Neuts (auto) Absolute Nucleated RBC Nucleated RBC % (auto) PT INR VBG pH VBG pCO2 VBG pO2 VBG HCO3 VBG O2 Saturation VBG Base Excess Anion Gap Estim Creat Clear Calc Estimated GFR POC Glucose 81 37 L* 90 Random Glucose Lactic Acid Calcium Magnesium Total Bilirubin Direct Bilirubin AST ALT Alkaline Phosphatase Total Creatine Kinase Troponin I High Sens B-Natriuretic Peptide Total Protein Albumin Lipase Urine Color Urine Appearance Urine pH Ur Specific Morrill Urine Protein Urine Glucose (UA) Urine Ketones Urine Blood Urine Nitrite Ur Leukocyte Esterase Urine RBC Urine WBC Ur Squamous Epith Cells Ur Renal Epithelial Cell Urine Bacteria Hyaline Casts Urine Opiates Screen Urine Fentanyl Screen Ur Barbiturates Screen Ur Phencyclidine Scrn Ur Amphetamines Screen U Benzodiazepines Scrn Urine Cocaine Screen U Marijuana (THC) Screen COVID-19 ([facility]) COVID-19 Clin Com Imaging Radiologist's Impressions: Impressions Chest X-Ray 06/17/22 08:55 IMPRESSION: 1. Endotracheal tube terminates approximately 7 cm above the level the sydnie. 2. Suspected layering right-sided pleural effusion. This can be confirmed with CT imaging as clinically indicated. Abdomen/Pelvis CT 06/17/22 10:04 IMPRESSION: Diffuse ascites. Mild abdominal wall edema Moderate constipation with scattered diverticulosis. Moderate to large right pleural effusion and small left pleural effusion with underlying compressive atelectasis. Chest CT 06/17/22 10:04 IMPRESSION: Diffuse ascites. Mild abdominal wall edema Moderate constipation with scattered diverticulosis. Moderate to large right pleural effusion and small left pleural effusion with underlying compressive atelectasis. Head CT 06/17/22 10:04 IMPRESSION: No acute intracranial pathology. Anasarca Chest X-Ray 06/17/22 12:21 IMPRESSION: 1. New right jugular central line with its tip in proximal SVC. No pneumothorax. 2. Enteric tube and endotracheal tube are in satisfactory position. 3. There is left lower lobe consolidation/atelectasis. There is a right lower lobe haziness similar to previous study. Assessment and Plan (1) Hypoglycemia: Status: Acute (2) Unresponsive: Status: Acute (3) Hypothermia: Status: Acute (4) ESRD (end stage renal disease) on dialysis: Status: Acute (5) Hypertensive cardiopathy: Status: Acute (6) Hypokalemia: Status: Acute (7) Eosinophilia: Status: Acute Plan I will send off for a an insulin level along with proinsulin and C peptide to field recorder if this is a factitious issue or if this is an intrinsic production of insulin and I am going to increase his maintenance drip to D 10 W for the time being and then recheck him periodically and in the morning of course get an EEG to field recorder the degree of his encephalopathy because he might of had prolonged hypoglycemia unbeknownst to the staff at his home and we had renal come to see him but he was neither fluid overloaded nor in any metabolic disarray other than the hypoglycemia so the we found no benefit to dialyzing today In addition we found him to have significant eosinophilia and of course I can not differentiate as to whether this might represent and an allergic issue a medication response such as to his FRANCHESCA-inhibitor or an infectious related problem or vasculitic problem Will send off a sed rate and certainly withhold his other home medications for now
[2022-06-17] MEDS: Dextrose 10 % 1,000 ML 50 ML IVCONT (13:49)
[2022-06-17 13:58] LABS: Estimated Average Glucose 166 mg/dL; Hemoglobin A1c % 7.4 %
[2022-06-17 14:03] LABS: Glucose, Whole Blood 40 mg/dL (60-115)
[2022-06-17 14:24] LABS: Glucose, Whole Blood 94 mg/dL (60-115)
[2022-06-17 14:26] LABS: Insulin 54 uU/mL (2-29)
[2022-06-17 15:30] LABS: Glucose, Whole Blood 41 mg/dL (60-115)
[2022-06-17 15:46] LABS: Glucose, Whole Blood 107 mg/dL (60-115)
[2022-06-17 16:41] LABS: Glucose, Whole Blood 59 mg/dL (60-115)
[2022-06-17 17:02] LABS: Glucose, Whole Blood 113 mg/dL (60-115)
[2022-06-17 18:07] LABS: Glucose, Whole Blood 85 mg/dL (60-115)
[2022-06-17 19:12] LABS: Glucose, Whole Blood 50 mg/dL (60-115)
[2022-06-17 19:46] LABS: Glucose, Whole Blood 129 mg/dL (60-115)
[2022-06-17 20:44] LABS: Glucose, Whole Blood 81 mg/dL (60-115)
[2022-06-17 21:45] LABS: Glucose, Whole Blood 73 mg/dL (60-115)
[2022-06-17] MEDS: Famotidine/PF 20 MG/2 ML VIAL IVPUSH (22:08)
[2022-06-17] MEDS: Labetalol HCL 100 MG/20 ML VIAL 10 MG IVPUSH (22:09)
[2022-06-17] MEDS: propofoL 1,000 MG/100 ML VIAL 8.06 MG IVCONT (22:25)
[2022-06-17 22:49] LABS: Glucose, Whole Blood 65 mg/dL (60-115)
[2022-06-17 23:09] LABS: Glucose, Whole Blood 132 mg/dL (60-115)
[2022-06-17] MEDS: hydrALAZINE HCl 20 MG/ML VIAL 5 MG IVPUSH (23:23)
[2022-06-18] VITALS (32 sets, daily range): BP systolic 114–186; BP diastolic 67–94; PULSE 74–92; RESP 6–20; TEMP 34.8–37.6; O2SAT 90–100; BMI 31.1
[2022-06-18 00:14] LABS: Glucose, Whole Blood 101 mg/dL (60-115)
[2022-06-18 01:12] LABS: Glucose, Whole Blood 94 mg/dL (60-115)
[2022-06-18 02:15] LABS: Glucose, Whole Blood 90 mg/dL (60-115)
[2022-06-18 03:28] LABS: Glucose, Whole Blood 97 mg/dL (60-115)
[2022-06-18 04:18] LABS: Glucose, Whole Blood 96 mg/dL (60-115)
[2022-06-18 05:03] LABS: VBG Base Excess 10.8 mmol/L; VBG HCO3 32 mmol/L (22-26); VBG pCO2 30 mmHg; VBG pH 7.63 (7.32-7.43); VBG pO2 53 mmHg
[2022-06-18 05:11] LABS: MANUAL DIFF FLAG NO
[2022-06-18 05:15] LABS: Basophils Percent Auto 0.6 % (0-2); Eosinophils Absolute Auto 0.3 X10*3/uL (0.0-0.4); Eosinophils Percent Auto 5.3 % (0-4); Hematocrit 24.4 % (42.0-52.0); Imm Gran Abs Auto 0.01 X10*3/uL (0.00-0.03); Imm Gran Pct Auto 0.2 % (0.0-0.4); Lymphocytes Absolute Auto 1.1 X10*3/uL (1.2-4.9); Lymphocytes Percent Auto 21.7 % (20-40); Mean Corpuscular HGB Conc 32.8 g/dl (31.0-36.0); Mean Corpuscular Hemoglobin 29.9 pg (27.0-33.0); Mean Platelet Volume 9.7 fL (9.4-12.4); Monocytes Absolute Auto 0.5 X10*3/uL (0.1-1.2); Monocytes Percent Auto 9.4 % (2-11); Neutrophils Absolute Auto 3.2 x10*3/uL (2.0-8.3); Neutrophils Percent Auto 62.8 % (45-73); Platelet Count 160 X10*3/uL (160-400); Red Blood Count 2.68 X10*6/uL (4.60-5.80); Red Cell Distribution Width 16.4 % (11.0-16.0); White Blood Count 5.1 X10*3/uL (4.8-10.8)
[2022-06-18 05:20] LABS: Glucose, Whole Blood 112 mg/dL (60-115)
[2022-06-18 05:44] LABS: Alanine Aminotransferase 8 U/L (0-40); Albumin Level 2.8 g/dL (3.5-5.0); Alkaline Phosphatase 80 U/L (39-117); Anion Gap 12 (12-20); Aspartate Amino Transferase 14 U/L (5-37); Bilirubin Total 0.5 mg/dL (0.0-1.0); Blood Urea Nitrogen 36 mg/dL (9-16); Calcium 8.2 mg/dL (8.4-10.2); Carbon Dioxide 28 mmol/L (22-29); Chloride 92 mmol/L (96-108); Creatinine Clr Calc Pharmacy 17.1; Estimated Glomerular Filt Rate 12; Glucose Random 99 mg/dL (60-115); Magnesium 1.8 mg/dL (1.6-2.6); Potassium 3.3 mmol/L (3.3-5.1); Sodium 129 mmol/L (135-145); Total Protein 5.8 g/dL (6.5-8.0)
[2022-06-18 05:47] LABS: Venous Blood Gas Refer to POC result
[2022-06-18] MEDS: Chlorhexidine Gluc Oral Rinse 15 ML MOUTHWASH BUCCAL ×2 (06:16→10:57)
[2022-06-18] MEDS: propofoL 1,000 MG/100 ML VIAL 10.74 MG IVCONT (06:34)
[2022-06-18 06:40] LABS: Glucose, Whole Blood 131 mg/dL (60-115)
[2022-06-18 07:12] LABS: Glucose, Whole Blood 165 mg/dL (60-115)
[2022-06-18] MEDS: Losartan Potassium 50 MG TABLET 100 MG PO ×2 (08:12→20:30)
[2022-06-18] MEDS: carvediloL 25 MG TABLET PO ×2 (08:12→20:29)
[2022-06-18] MEDS: amLODIPine Besylate 10 MG TABLET PO (08:12)
[2022-06-18] MEDS: Famotidine/PF 20 MG/2 ML VIAL IVPUSH (08:13)
[2022-06-18] MEDS: Albumin Human 25 % 100 ML IV ×3 (08:30→20:27)
[2022-06-18] MEDS: Potassium Phosphate/NS 15 MMOL/250 ML PLAST..BAG 62.5 MMOL IV ×2 (08:30→12:40)
[2022-06-18] MEDS: Dextrose 10 % 1,000 ML 50 ML IVCONT (08:42)
[2022-06-18 09:12] LABS: Glucose, Whole Blood 212 mg/dL (60-115)
[2022-06-18 09:12] LABS: Glucose, Whole Blood 233 mg/dL (60-115)
[2022-06-18] MEDS: Heparin Sodium,Porcine 5,000 UNIT/ML VIAL 5000 UNIT SUBCUT ×2 (10:09→22:18)
[2022-06-18 10:16] LABS: Free T4 (Free Thyroxine) 1.14 ng/dL (0.71-1.85); Thyroid Stimulating Hormone 1.24 uIU/mL (0.32-4.0)
[2022-06-18 10:31] LABS: C Peptide 0.22 ng/mL (0.80-3.85)
--- NOTE | 2022-06-18 10:44 | P.PNCC_ITS ---
Subjective Subjective Date of Service: 06/18/22 Interval History: 62-year-old gentleman with underlying history of diabetes mellitus, hepatitis- C, systolic congestive heart failure, ESRD hemodialysis, hypertensive cardiomyopathy admitted on 06/17/2022 with persistent hypoglycemia and metabolic encephalopathy requiring intubation for airway protection and ventilatory support. Patient was started on dextrose supplement. His insulin and C-peptide level a pending. His hypoglycemia improved and with that his mental status improved also. No events overnight. Undergoing hemodialysis. Critical Care Time (minutes): 60 Physical Exam Vital Signs: Vital Signs: Last Vital Signs Temp 99.1 F 06/18/22 10:00 Pulse 79 06/18/22 10:00 Resp 13 06/18/22 10:00 BP 166/82 H 06/18/22 10:00 Pulse Ox 100 06/18/22 10:00 O2 Del Method 06/18/22 10:00 O2 Flow Rate 50 06/17/22 11:57 FiO2 50 06/18/22 10:00 Oxygen Flow Rate 7 06/17/22 08:45 BMI result Body Mass Index 31.1 Const: General: no acute distress and other ( Sedated on the vent, arousable with sedation vacation) Nutritional Appearance: obese and Edematous Eyes: Sclerae: sclerae normal EOM: EOMs intact bilaterally Neck: Neck: Yes no lymphadenopathy, Yes trachea midline and Yes supple Resp: Auscultation: crackles ( bilateral) Cardio: Rate: regular rate Rhythm: regular rhythm Heart sounds: no gallops, no murmurs and no rubs GI: Palpation (GI): Soft to palpation and Other GI palpation findings present ( Nontender) Auscultation: normal bowel sounds Extrem: General: No clubbing, No cyanosis and Yes edema ( 2+ bilateral) Objective Data Labs CBC & Chem 7: 06/18/22 04:54 06/18/22 04:54 Labs: Laboratory Results - last 24 hr 06/17/22 06/17/22 06/17/22 11:33 12:14 12:51 WBC RBC Hgb Hct MCV MCH MCHC RDW Plt Count MPV Immature Gran % (Auto) Neut % (Auto) Lymph % (Auto) [place] % (Auto) Eos % (Auto) Baso % (Auto) Lymph # (Auto) [place] # (Auto) Eos # (Auto) Baso # (Auto) Abs Immat Gran (auto) Absolute Neuts (auto) Absolute Nucleated RBC Nucleated RBC % (auto) VBG pH VBG pCO2 VBG pO2 VBG HCO3 VBG O2 Saturation VBG Base Excess Sodium Potassium Chloride Carbon Dioxide Anion Gap BUN Creatinine Estim Creat Clear Calc Estimated GFR POC Glucose 18 L* 81 37 L* Random Glucose Estimat Average Glucose Hemoglobin A1c % Insulin Level C-Peptide Calcium Phosphorus Magnesium Total Bilirubin AST ALT Alkaline Phosphatase Total Protein Albumin TSH Free T4 06/17/22 06/17/22 06/17/22 13:12 13:40 13:40 WBC RBC Hgb Hct MCV MCH MCHC RDW Plt Count MPV Immature Gran % (Auto) Neut % (Auto) Lymph % (Auto) [place] % (Auto) Eos % (Auto) Baso % (Auto) Lymph # (Auto) [place] # (Auto) Eos # (Auto) Baso # (Auto) Abs Immat Gran (auto) Absolute Neuts (auto) Absolute Nucleated RBC Nucleated RBC % (auto) VBG pH VBG pCO2 VBG pO2 VBG HCO3 VBG O2 Saturation VBG Base Excess Sodium Potassium Chloride Carbon Dioxide Anion Gap BUN Creatinine Estim Creat Clear Calc Estimated GFR POC Glucose 90 Random Glucose Estimat Average Glucose 166 Hemoglobin A1c % 7.4 Insulin Level 54 H C-Peptide Calcium Phosphorus Magnesium Total Bilirubin AST ALT Alkaline Phosphatase Total Protein Albumin TSH Free T4 06/17/22 06/17/22 06/17/22 13:40 14:00 14:20 WBC RBC Hgb Hct MCV MCH MCHC RDW Plt Count MPV Immature Gran % (Auto) Neut % (Auto) Lymph % (Auto) [place] % (Auto) Eos % (Auto) Baso % (Auto) Lymph # (Auto) [place] # (Auto) Eos # (Auto) Baso # (Auto) Abs Immat Gran (auto) Absolute Neuts (auto) Absolute Nucleated RBC Nucleated RBC % (auto) VBG pH VBG pCO2 VBG pO2 VBG HCO3 VBG O2 Saturation VBG Base Excess Sodium Potassium Chloride Carbon Dioxide Anion Gap BUN Creatinine Estim Creat Clear Calc Estimated GFR POC Glucose 40 L* 94 Random Glucose Estimat Average Glucose Hemoglobin A1c % Insulin Level C-Peptide 0.22 L Calcium Phosphorus Magnesium Total Bilirubin AST ALT Alkaline Phosphatase Total Protein Albumin TSH Free T4 06/17/22 06/17/22 06/17/22 15:25 15:43 16:37 WBC RBC Hgb Hct MCV MCH MCHC RDW Plt Count MPV Immature Gran % (Auto) Neut % (Auto) Lymph % (Auto) [place] % (Auto) Eos % (Auto) Baso % (Auto) Lymph # (Auto) [place] # (Auto) Eos # (Auto) Baso # (Auto) Abs Immat Gran (auto) Absolute Neuts (auto) Absolute Nucleated RBC Nucleated RBC % (auto) VBG pH VBG pCO2 VBG pO2 VBG HCO3 VBG O2 Saturation VBG Base Excess Sodium Potassium Chloride Carbon Dioxide Anion Gap BUN Creatinine Estim Creat Clear Calc Estimated GFR POC Glucose 41 L* 107 59 L* Random Glucose Estimat Average Glucose Hemoglobin A1c % Insulin Level C-Peptide Calcium Phosphorus Magnesium Total Bilirubin AST ALT Alkaline Phosphatase Total Protein Albumin TSH Free T4 06/17/22 06/17/22 06/17/22 16:55 18:03 19:08 WBC RBC Hgb Hct MCV MCH MCHC RDW Plt Count MPV Immature Gran % (Auto) Neut % (Auto) Lymph % (Auto) [place] % (Auto) Eos % (Auto) Baso % (Auto) Lymph # (Auto) [place] # (Auto) Eos # (Auto) Baso # (Auto) Abs Immat Gran (auto) Absolute Neuts (auto) Absolute Nucleated RBC Nucleated RBC % (auto) VBG pH VBG pCO2 VBG pO2 VBG HCO3 VBG O2 Saturation VBG Base Excess Sodium Potassium Chloride Carbon Dioxide Anion Gap BUN Creatinine Estim Creat Clear Calc Estimated GFR POC Glucose 113 85 50 L* Random Glucose Estimat Average Glucose Hemoglobin A1c % Insulin Level C-Peptide Calcium Phosphorus Magnesium Total Bilirubin AST ALT Alkaline Phosphatase Total Protein Albumin TSH Free T4 06/17/22 06/17/22 06/17/22 19:42 20:41 21:41 WBC RBC Hgb Hct MCV MCH MCHC RDW Plt Count MPV Immature Gran % (Auto) Neut % (Auto) Lymph % (Auto) [place] % (Auto) Eos % (Auto) Baso % (Auto) Lymph # (Auto) [place] # (Auto) Eos # (Auto) Baso # (Auto) Abs Immat Gran (auto) Absolute Neuts (auto) Absolute Nucleated RBC Nucleated RBC % (auto) VBG pH VBG pCO2 VBG pO2 VBG HCO3 VBG O2 Saturation VBG Base Excess Sodium Potassium Chloride Carbon Dioxide Anion Gap BUN Creatinine Estim Creat Clear Calc Estimated GFR POC Glucose 129 H 81 73 Random Glucose Estimat Average Glucose Hemoglobin A1c % Insulin Level C-Peptide Calcium Phosphorus Magnesium Total Bilirubin AST ALT Alkaline Phosphatase Total Protein Albumin TSH Free T4 06/17/22 06/17/22 06/18/22 22:44 23:04 00:09 WBC RBC Hgb Hct MCV MCH MCHC RDW Plt Count MPV Immature Gran % (Auto) Neut % (Auto) Lymph % (Auto) [place] % (Auto) Eos % (Auto) Baso % (Auto) Lymph # (Auto) [place] # (Auto) Eos # (Auto) Baso # (Auto) Abs Immat Gran (auto) Absolute Neuts (auto) Absolute Nucleated RBC Nucleated RBC % (auto) VBG pH VBG pCO2 VBG pO2 VBG HCO3 VBG O2 Saturation VBG Base Excess Sodium Potassium Chloride Carbon Dioxide Anion Gap BUN Creatinine Estim Creat Clear Calc Estimated GFR POC Glucose 65 132 H 101 Random Glucose Estimat Average Glucose Hemoglobin A1c % Insulin Level C-Peptide Calcium Phosphorus Magnesium Total Bilirubin AST ALT Alkaline Phosphatase Total Protein Albumin TSH Free T4 06/18/22 06/18/22 06/18/22 01:08 02:07 03:23 WBC RBC Hgb Hct MCV MCH MCHC RDW Plt Count MPV Immature Gran % (Auto) Neut % (Auto) Lymph % (Auto) [place] % (Auto) Eos % (Auto) Baso % (Auto) Lymph # (Auto) [place] # (Auto) Eos # (Auto) Baso # (Auto) Abs Immat Gran (auto) Absolute Neuts (auto) Absolute Nucleated RBC Nucleated RBC % (auto) VBG pH VBG pCO2 VBG pO2 VBG HCO3 VBG O2 Saturation VBG Base Excess Sodium Potassium Chloride Carbon Dioxide Anion Gap BUN Creatinine Estim Creat Clear Calc Estimated GFR POC Glucose 94 90 97 Random Glucose Estimat Average Glucose Hemoglobin A1c % Insulin Level C-Peptide Calcium Phosphorus Magnesium Total Bilirubin AST ALT Alkaline Phosphatase Total Protein Albumin TSH Free T4 06/18/22 06/18/22 06/18/22 04:12 04:54 04:54 WBC 5.1 RBC 2.68 L Hgb 8.0 L Hct 24.4 L MCV 91.0 MCH 29.9 MCHC 32.8 RDW 16.4 H Plt Count 160 MPV 9.7 Immature Gran % (Auto) 0.2 Neut % (Auto) 62.8 Lymph % (Auto) 21.7 [place] % (Auto) 9.4 Eos % (Auto) 5.3 H Baso % (Auto) 0.6 Lymph # (Auto) 1.1 L [place] # (Auto) 0.5 Eos # (Auto) 0.3 Baso # (Auto) 0.0 Abs Immat Gran (auto) 0.01 Absolute Neuts (auto) 3.2 Absolute Nucleated RBC 0.000 Nucleated RBC % (auto) 0.0 VBG pH VBG pCO2 VBG pO2 VBG HCO3 VBG O2 Saturation VBG Base Excess Sodium 129 L Potassium 3.3 Chloride 92 L Carbon Dioxide 28 Anion Gap 12 BUN 36 H Creatinine 4.88 H* Estim Creat Clear Calc 17.1 Estimated GFR 12 POC Glucose 96 Random Glucose 99 Estimat Average Glucose Hemoglobin A1c % Insulin Level C-Peptide Calcium 8.2 L D Phosphorus 2.0 L Magnesium 1.8 Total Bilirubin 0.5 AST 14 ALT 8 Alkaline Phosphatase 80 Total Protein 5.8 L Albumin 2.8 L TSH 1.24 Free T4 1.14 06/18/22 06/18/22 06/18/22 04:55 05:12 06:15 WBC RBC Hgb Hct MCV MCH MCHC RDW Plt Count MPV Immature Gran % (Auto) Neut % (Auto) Lymph % (Auto) [place] % (Auto) Eos % (Auto) Baso % (Auto) Lymph # (Auto) [place] # (Auto) Eos # (Auto) Baso # (Auto) Abs Immat Gran (auto) Absolute Neuts (auto) Absolute Nucleated RBC Nucleated RBC % (auto) VBG pH 7.63 H* VBG pCO2 30 VBG pO2 53 VBG HCO3 32 H VBG O2 Saturation 89.0 VBG Base Excess 10.8 Sodium Potassium Chloride Carbon Dioxide Anion Gap BUN Creatinine Estim Creat Clear Calc Estimated GFR POC Glucose 112 131 H Random Glucose Estimat Average Glucose Hemoglobin A1c % Insulin Level C-Peptide Calcium Phosphorus Magnesium Total Bilirubin AST ALT Alkaline Phosphatase Total Protein Albumin TSH Free T4 06/18/22 06/18/22 06/18/22 07:05 08:06 09:09 WBC RBC Hgb Hct MCV MCH MCHC RDW Plt Count MPV Immature Gran % (Auto) Neut % (Auto) Lymph % (Auto) [place] % (Auto) Eos % (Auto) Baso % (Auto) Lymph # (Auto) [place] # (Auto) Eos # (Auto) Baso # (Auto) Abs Immat Gran (auto) Absolute Neuts (auto) Absolute Nucleated RBC Nucleated RBC % (auto) VBG pH VBG pCO2 VBG pO2 VBG HCO3 VBG O2 Saturation VBG Base Excess Sodium Potassium Chloride Carbon Dioxide Anion Gap BUN Creatinine Estim Creat Clear Calc Estimated GFR POC Glucose 165 H 212 H 233 H Random Glucose Estimat Average Glucose Hemoglobin A1c % Insulin Level C-Peptide Calcium Phosphorus Magnesium Total Bilirubin AST ALT Alkaline Phosphatase Total Protein Albumin TSH Free T4 Progress Note: A&P Assessment and plan (1) Metabolic encephalopathy: Status: Acute (2) Hypoglycemia: Status: Acute (3) ESRD (end stage renal disease) on dialysis: Status: Acute (4) Diabetes mellitus type 1: Status: Acute Plan Assessment: 62-year-old gentleman admitted with acute metabolic encephalopathy and hypoglycemia requiring intubation for airway protection, now improving slowly Plan: Neuro: acute metabolic encephalopathy, likely secondary to hypoglycemia, improv ing. Cardiac: No acute issues. Underlying history of chronic systolic congestive heart failure. Pulmonary: Intubated for airway protection, continue to titrate off ventilatory support as tolerated. Underlying history of COPD. Renal: Underlying end-stage renal disease on hemodialysis. Nephrology service care appreciated. Endo: No acute issues. Underlying diabetes mellitus. GI: No acute issues. ID: No acute issues. Cultures negative to date. Heme/Onc: No acute issues. Psych: No acute issues. Miscellaneous: No acute issues. Prophylaxis: Heparin, famotidine Diet: tube feeds Critical care time spent: 60 minutes Quality Stroke Does the patient have a stroke diagnosis?: No VTE Prior VTE?: No VTE Risk Level:: Medical - moderate - high VTE Device Contraindication: N/A - Device Ordered VTE Drug Contraindication: N/A - Med Ordered
[2022-06-18 11:04] LABS: Glucose, Whole Blood 213 mg/dL (60-115)
[2022-06-18 11:04] LABS: Glucose, Whole Blood 218 mg/dL (60-115)
[2022-06-18 12:16] LABS: Glucose, Whole Blood 203 mg/dL (60-115)
[2022-06-18] MEDS: fentaNYL citrate/PF 100 MCG/2 ML VIAL 25 MCG IVPUSH ×2 (14:08→16:52)
--- NOTE | 2022-06-18 14:30 | PM.PNNEP ---
Subjective Subjective Date of Service: 06/19/22 Interval history: Intubated FiO2 at 50% Physical Exam Vital Signs: Vital Signs: Last Vital Signs Temp 98.2 F 06/18/22 13:00 Pulse 81 06/18/22 13:00 Resp 8 L 06/18/22 13:00 BP 174/94 H 06/18/22 13:00 Pulse Ox 100 06/18/22 13:00 O2 Del Method 06/18/22 13:00 O2 Flow Rate 50 06/17/22 11:57 FiO2 50 06/18/22 13:00 Oxygen Flow Rate 7 06/17/22 08:45 BMI result Body Mass Index 31.1 Const: General: no acute distress and other ( Sedated on the vent, arousable with sedation vacation) Nutritional Appearance: obese and Edematous Eyes: Sclerae: sclerae normal EOM: EOMs intact bilaterally Neck: Neck: Yes no lymphadenopathy, Yes trachea midline and Yes supple Resp: Auscultation: crackles ( bilateral) Cardio: Rate: regular rate Rhythm: regular rhythm Heart sounds: no gallops, no murmurs and no rubs GI: Palpation (GI): Soft to palpation and Other GI palpation findings present ( Nontender) Auscultation: normal bowel sounds Extrem: General: No clubbing, No cyanosis and Yes edema ( 2+ bilateral) Objective Data Labs CBC & Chem 7: 06/19/22 05:12 06/19/22 05:12 Labs: Laboratory Results - last 24 hr 06/17/22 06/17/22 06/17/22 13:40 15:25 15:43 WBC RBC Hgb Hct MCV MCH MCHC RDW Plt Count MPV Immature Gran % (Auto) Neut % (Auto) Lymph % (Auto) [place] % (Auto) Eos % (Auto) Baso % (Auto) Lymph # (Auto) [place] # (Auto) Eos # (Auto) Baso # (Auto) Abs Immat Gran (auto) Absolute Neuts (auto) Absolute Nucleated RBC Nucleated RBC % (auto) VBG pH VBG pCO2 VBG pO2 VBG HCO3 VBG O2 Saturation VBG Base Excess Sodium Potassium Chloride Carbon Dioxide Anion Gap BUN Creatinine Estim Creat Clear Calc Estimated GFR POC Glucose 41 L* 107 Random Glucose C-Peptide 0.22 L Calcium Phosphorus Magnesium Total Bilirubin AST ALT Alkaline Phosphatase Total Protein Albumin TSH Free T4 06/17/22 06/17/22 06/17/22 16:37 16:55 18:03 WBC RBC Hgb Hct MCV MCH MCHC RDW Plt Count MPV Immature Gran % (Auto) Neut % (Auto) Lymph % (Auto) [place] % (Auto) Eos % (Auto) Baso % (Auto) Lymph # (Auto) [place] # (Auto) Eos # (Auto) Baso # (Auto) Abs Immat Gran (auto) Absolute Neuts (auto) Absolute Nucleated RBC Nucleated RBC % (auto) VBG pH VBG pCO2 VBG pO2 VBG HCO3 VBG O2 Saturation VBG Base Excess Sodium Potassium Chloride Carbon Dioxide Anion Gap BUN Creatinine Estim Creat Clear Calc Estimated GFR POC Glucose 59 L* 113 85 Random Glucose C-Peptide Calcium Phosphorus Magnesium Total Bilirubin AST ALT Alkaline Phosphatase Total Protein Albumin TSH Free T4 06/17/22 06/17/22 06/17/22 19:08 19:42 20:41 WBC RBC Hgb Hct MCV MCH MCHC RDW Plt Count MPV Immature Gran % (Auto) Neut % (Auto) Lymph % (Auto) [place] % (Auto) Eos % (Auto) Baso % (Auto) Lymph # (Auto) [place] # (Auto) Eos # (Auto) Baso # (Auto) Abs Immat Gran (auto) Absolute Neuts (auto) Absolute Nucleated RBC Nucleated RBC % (auto) VBG pH VBG pCO2 VBG pO2 VBG HCO3 VBG O2 Saturation VBG Base Excess Sodium Potassium Chloride Carbon Dioxide Anion Gap BUN Creatinine Estim Creat Clear Calc Estimated GFR POC Glucose 50 L* 129 H 81 Random Glucose C-Peptide Calcium Phosphorus Magnesium Total Bilirubin AST ALT Alkaline Phosphatase Total Protein Albumin TSH Free T4 06/17/22 06/17/22 06/17/22 21:41 22:44 23:04 WBC RBC Hgb Hct MCV MCH MCHC RDW Plt Count MPV Immature Gran % (Auto) Neut % (Auto) Lymph % (Auto) [place] % (Auto) Eos % (Auto) Baso % (Auto) Lymph # (Auto) [place] # (Auto) Eos # (Auto) Baso # (Auto) Abs Immat Gran (auto) Absolute Neuts (auto) Absolute Nucleated RBC Nucleated RBC % (auto) VBG pH VBG pCO2 VBG pO2 VBG HCO3 VBG O2 Saturation VBG Base Excess Sodium Potassium Chloride Carbon Dioxide Anion Gap BUN Creatinine Estim Creat Clear Calc Estimated GFR POC Glucose 73 65 132 H Random Glucose C-Peptide Calcium Phosphorus Magnesium Total Bilirubin AST ALT Alkaline Phosphatase Total Protein Albumin TSH Free T4 06/18/22 06/18/22 06/18/22 00:09 01:08 02:07 WBC RBC Hgb Hct MCV MCH MCHC RDW Plt Count MPV Immature Gran % (Auto) Neut % (Auto) Lymph % (Auto) [place] % (Auto) Eos % (Auto) Baso % (Auto) Lymph # (Auto) [place] # (Auto) Eos # (Auto) Baso # (Auto) Abs Immat Gran (auto) Absolute Neuts (auto) Absolute Nucleated RBC Nucleated RBC % (auto) VBG pH VBG pCO2 VBG pO2 VBG HCO3 VBG O2 Saturation VBG Base Excess Sodium Potassium Chloride Carbon Dioxide Anion Gap BUN Creatinine Estim Creat Clear Calc Estimated GFR POC Glucose 101 94 90 Random Glucose C-Peptide Calcium Phosphorus Magnesium Total Bilirubin AST ALT Alkaline Phosphatase Total Protein Albumin TSH Free T4 06/18/22 06/18/22 06/18/22 03:23 04:12 04:54 WBC 5.1 RBC 2.68 L Hgb 8.0 L Hct 24.4 L MCV 91.0 MCH 29.9 MCHC 32.8 RDW 16.4 H Plt Count 160 MPV 9.7 Immature Gran % (Auto) 0.2 Neut % (Auto) 62.8 Lymph % (Auto) 21.7 [place] % (Auto) 9.4 Eos % (Auto) 5.3 H Baso % (Auto) 0.6 Lymph # (Auto) 1.1 L [place] # (Auto) 0.5 Eos # (Auto) 0.3 Baso # (Auto) 0.0 Abs Immat Gran (auto) 0.01 Absolute Neuts (auto) 3.2 Absolute Nucleated RBC 0.000 Nucleated RBC % (auto) 0.0 VBG pH VBG pCO2 VBG pO2 VBG HCO3 VBG O2 Saturation VBG Base Excess Sodium Potassium Chloride Carbon Dioxide Anion Gap BUN Creatinine Estim Creat Clear Calc Estimated GFR POC Glucose 97 96 Random Glucose C-Peptide Calcium Phosphorus Magnesium Total Bilirubin AST ALT Alkaline Phosphatase Total Protein Albumin TSH Free T4 06/18/22 06/18/22 06/18/22 04:54 04:55 05:12 WBC RBC Hgb Hct MCV MCH MCHC RDW Plt Count MPV Immature Gran % (Auto) Neut % (Auto) Lymph % (Auto) [place] % (Auto) Eos % (Auto) Baso % (Auto) Lymph # (Auto) [place] # (Auto) Eos # (Auto) Baso # (Auto) Abs Immat Gran (auto) Absolute Neuts (auto) Absolute Nucleated RBC Nucleated RBC % (auto) VBG pH 7.63 H* VBG pCO2 30 VBG pO2 53 VBG HCO3 32 H VBG O2 Saturation 89.0 VBG Base Excess 10.8 Sodium 129 L Potassium 3.3 Chloride 92 L Carbon Dioxide 28 Anion Gap 12 BUN 36 H Creatinine 4.88 H* Estim Creat Clear Calc 17.1 Estimated GFR 12 POC Glucose 112 Random Glucose 99 C-Peptide Calcium 8.2 L D Phosphorus 2.0 L Magnesium 1.8 Total Bilirubin 0.5 AST 14 ALT 8 Alkaline Phosphatase 80 Total Protein 5.8 L Albumin 2.8 L TSH 1.24 Free T4 1.14 06/18/22 06/18/22 06/18/22 06:15 07:05 08:06 WBC RBC Hgb Hct MCV MCH MCHC RDW Plt Count MPV Immature Gran % (Auto) Neut % (Auto) Lymph % (Auto) [place] % (Auto) Eos % (Auto) Baso % (Auto) Lymph # (Auto) [place] # (Auto) Eos # (Auto) Baso # (Auto) Abs Immat Gran (auto) Absolute Neuts (auto) Absolute Nucleated RBC Nucleated RBC % (auto) VBG pH VBG pCO2 VBG pO2 VBG HCO3 VBG O2 Saturation VBG Base Excess Sodium Potassium Chloride Carbon Dioxide Anion Gap BUN Creatinine Estim Creat Clear Calc Estimated GFR POC Glucose 131 H 165 H 212 H Random Glucose C-Peptide Calcium Phosphorus Magnesium Total Bilirubin AST ALT Alkaline Phosphatase Total Protein Albumin TSH Free T4 06/18/22 06/18/22 06/18/22 09:09 10:06 10:59 WBC RBC Hgb Hct MCV MCH MCHC RDW Plt Count MPV Immature Gran % (Auto) Neut % (Auto) Lymph % (Auto) [place] % (Auto) Eos % (Auto) Baso % (Auto) Lymph # (Auto) [place] # (Auto) Eos # (Auto) Baso # (Auto) Abs Immat Gran (auto) Absolute Neuts (auto) Absolute Nucleated RBC Nucleated RBC % (auto) VBG pH VBG pCO2 VBG pO2 VBG HCO3 VBG O2 Saturation VBG Base Excess Sodium Potassium Chloride Carbon Dioxide Anion Gap BUN Creatinine Estim Creat Clear Calc Estimated GFR POC Glucose 233 H 213 H 218 H Random Glucose C-Peptide Calcium Phosphorus Magnesium Total Bilirubin AST ALT Alkaline Phosphatase Total Protein Albumin TSH Free T4 06/18/22 12:08 WBC RBC Hgb Hct MCV MCH MCHC RDW Plt Count MPV Immature Gran % (Auto) Neut % (Auto) Lymph % (Auto) [place] % (Auto) Eos % (Auto) Baso % (Auto) Lymph # (Auto) [place] # (Auto) Eos # (Auto) Baso # (Auto) Abs Immat Gran (auto) Absolute Neuts (auto) Absolute Nucleated RBC Nucleated RBC % (auto) VBG pH VBG pCO2 VBG pO2 VBG HCO3 VBG O2 Saturation VBG Base Excess Sodium Potassium Chloride Carbon Dioxide Anion Gap BUN Creatinine Estim Creat Clear Calc Estimated GFR POC Glucose 203 H Random Glucose C-Peptide Calcium Phosphorus Magnesium Total Bilirubin AST ALT Alkaline Phosphatase Total Protein Albumin TSH Free T4 Microbiology Microbiology Results: Microbiology 06/17/22 08:48 Blood - Venous Blood Culture - Preliminary No growth after 24 hours. 06/17/22 08:48 Blood - Venous Blood Culture - Preliminary No growth after 24 hours. Procedures Date of Service Date of Service: 06/18/22 Assessment & Plan Assessment and plan (1) Metabolic encephalopathy: Status: Acute (2) Hypoglycemia: Status: Acute (3) ESRD (end stage renal disease) on dialysis: Status: Acute (4) Diabetes mellitus type 1: Status: Acute Plan Assessment: 62-year-old gentleman admitted with acute metabolic encephalopathy and hypoglycemia requiring intubation for airway protection, now improving slowly HD today Remove fluid as tolerated Reassess BP post HD Shall follow with team Time Spent With Patient Time: Total time spent is greater than 50% in coordination of care (as documented) at patient's floor/unit and/or counseling patient: Progress Note: Quality Stroke Does the patient have a stroke diagnosis?: No
[2022-06-18 14:43] LABS: Glucose, Whole Blood 237 mg/dL (60-115)
[2022-06-18 14:43] LABS: Glucose, Whole Blood 221 mg/dL (60-115)
[2022-06-18 15:20] LABS: Glucose, Whole Blood 253 mg/dL (60-115)
[2022-06-18] MEDS: hydrALAZINE HCl 25 MG TABLET PO ×2 (16:52→20:29)
[2022-06-18] MEDS: Insulin Lispro 100 UNIT/ML 3 ML VIAL SUBCUT ×2 (16:53→22:18)
[2022-06-18 17:38] LABS: Glucose, Whole Blood 240 mg/dL (60-115)
[2022-06-18] MEDS: Mirtazapine 15 MG TABLET PO (20:30)
[2022-06-18] MEDS: Tamsulosin HCL 0.4 MG CAPSULE PO (20:30)
[2022-06-18] MEDS: Acetaminophen 325 MG TABLET 650 MG PO (20:30)
[2022-06-18 21:35] LABS: Glucose, Whole Blood 274 mg/dL (60-115)
[2022-06-19] VITALS (21 sets, daily range): BP systolic 132–199; BP diastolic 77–105; PULSE 74–88; RESP 12–21; TEMP 36.7–37.3; O2SAT 89–99; BMI 29.2
[2022-06-19] MEDS: Albumin Human 25 % 100 ML IV (02:09)
[2022-06-19 05:19] LABS: VBG Base Excess 1.7 mmol/L; VBG HCO3 25 mmol/L (22-26); VBG pCO2 35 mmHg; VBG pH 7.46 (7.32-7.43); VBG pO2 75 mmHg
[2022-06-19 05:34] LABS: MANUAL DIFF FLAG NO
[2022-06-19 05:35] LABS: Basophils Percent Auto 0.8 % (0-2); Eosinophils Absolute Auto 0.6 X10*3/uL (0.0-0.4); Eosinophils Percent Auto 11.1 % (0-4); Hematocrit 24.8 % (42.0-52.0); Hemoglobin 7.9 g/dl (14.0-18.0); Imm Gran Abs Auto 0.01 X10*3/uL (0.00-0.03); Imm Gran Pct Auto 0.2 % (0.0-0.4); Lymphocytes Absolute Auto 0.8 X10*3/uL (1.2-4.9); Lymphocytes Percent Auto 15.4 % (20-40); Mean Corpuscular HGB Conc 31.9 g/dl (31.0-36.0); Mean Corpuscular Hemoglobin 29.5 pg (27.0-33.0); Mean Corpuscular Volume 92.5 fL (80.0-98.0); Monocytes Absolute Auto 0.5 X10*3/uL (0.1-1.2); Monocytes Percent Auto 8.6 % (2-11); Neutrophils Absolute Auto 3.3 x10*3/uL (2.0-8.3); Neutrophils Percent Auto 63.9 % (45-73); Platelet Count 152 X10*3/uL (160-400); Red Blood Count 2.68 X10*6/uL (4.60-5.80); Red Cell Distribution Width 17.1 % (11.0-16.0); White Blood Count 5.2 X10*3/uL (4.8-10.8)
[2022-06-19 05:57] LABS: Albumin Level 4.3 g/dL (3.5-5.0); Anion Gap 14 (12-20); Blood Urea Nitrogen 24 mg/dL (9-16); Calcium 9.5 mg/dL (8.4-10.2); Carbon Dioxide 22 mmol/L (22-29); Chloride 98 mmol/L (96-108); Estimated Glomerular Filt Rate 16; Glucose Random 126 mg/dL (60-115); Magnesium 2.1 mg/dL (1.6-2.6); Phosphorus 3.3 mg/dL (2.7-4.5); Potassium 4.2 mmol/L (3.3-5.1); Sodium 130 mmol/L (135-145)
[2022-06-19] MEDS: Losartan Potassium 50 MG TABLET 100 MG PO ×2 (06:06→21:15)
[2022-06-19] MEDS: carvediloL 25 MG TABLET PO ×2 (06:06→21:15)
[2022-06-19] MEDS: amLODIPine Besylate 10 MG TABLET PO (06:06)
[2022-06-19] MEDS: hydrALAZINE HCl 25 MG TABLET PO ×3 (06:06→21:15)
[2022-06-19 06:43] LABS: Venous Blood Gas Refer to POC result
[2022-06-19] MEDS: Insulin Lispro 100 UNIT/ML 3 ML VIAL SUBCUT ×4 (07:35→21:15)
[2022-06-19 09:13] LABS: Glucose, Whole Blood 195 mg/dL (60-115)
--- NOTE | 2022-06-19 09:39 | PM.CCPN ---
Subjective Subjective Date of Service: 06/19/22 Interval History: 62-year-old gentleman with underlying history of diabetes mellitus, hepatitis-C, systolic congestive heart failure, ESRD hemodialysis, hypertensive cardiomyopathy admitted on 06/17/2022 with persistent hypoglycemia and metabolic encephalopathy requiring intubation for airway protection and ventilatory support. Patient was started on dextrose supplement. His insulin level was high and C-peptide level low. His hypoglycemia improved and with that his mental status improved also. Patient was extubated on 06/18/2022. He has passed his swallow evaluation. No events overnight. Critical Care Time (minutes): 0 Physical Exam Vital Signs: Vital Signs: Last Vital Signs Temp 99.1 F 06/19/22 08:00 Pulse 74 06/19/22 09:00 Resp 12 06/19/22 09:00 BP 132/87 06/19/22 09:00 Pulse Ox 91 L 06/19/22 09:00 O2 Del Method 06/19/22 09:00 O2 Flow Rate 1 06/19/22 09:00 FiO2 50 06/18/22 13:00 Oxygen Flow Rate 7 06/17/22 08:45 BMI result Body Mass Index 29.2 Const: General: no acute distress, alert and awake Eyes: Sclerae: sclerae normal EOM: EOMs intact bilaterally Neck: Neck: Yes no lymphadenopathy, Yes trachea midline and Yes supple Resp: Effort & Inspection: normal respiratory effort and no respiratory distress Auscultation: clear to auscultation bilaterally Cardio: Rate: regular rate Rhythm: regular rhythm Heart sounds: no gallops, no murmurs and no rubs GI: Palpation (GI): Soft to palpation and Other GI palpation findings present ( Nontender) Auscultation: normal bowel sounds Extrem: General: Yes no pedal edema, No clubbing and No cyanosis Objective Data Labs CBC & Chem 7: 06/19/22 05:12 06/19/22 05:12 Labs: Laboratory Results - last 24 hr 06/17/22 06/18/22 06/18/22 13:40 04:54 10:06 WBC RBC Hgb Hct MCV MCH MCHC RDW Plt Count MPV Immature Gran % (Auto) Neut % (Auto) Lymph % (Auto) [place] % (Auto) Eos % (Auto) Baso % (Auto) Lymph # (Auto) [place] # (Auto) Eos # (Auto) Baso # (Auto) Abs Immat Gran (auto) Absolute Neuts (auto) Absolute Nucleated RBC Nucleated RBC % (auto) VBG pH VBG pCO2 VBG pO2 VBG HCO3 VBG O2 Saturation VBG Base Excess Sodium Potassium Chloride Carbon Dioxide Anion Gap BUN Creatinine Estim Creat Clear Calc Estimated GFR POC Glucose 213 H Random Glucose C-Peptide 0.22 L Calcium Phosphorus Magnesium Albumin TSH 1.24 Free T4 1.14 06/18/22 06/18/22 06/18/22 10:59 12:08 13:17 WBC RBC Hgb Hct MCV MCH MCHC RDW Plt Count MPV Immature Gran % (Auto) Neut % (Auto) Lymph % (Auto) [place] % (Auto) Eos % (Auto) Baso % (Auto) Lymph # (Auto) [place] # (Auto) Eos # (Auto) Baso # (Auto) Abs Immat Gran (auto) Absolute Neuts (auto) Absolute Nucleated RBC Nucleated RBC % (auto) VBG pH VBG pCO2 VBG pO2 VBG HCO3 VBG O2 Saturation VBG Base Excess Sodium Potassium Chloride Carbon Dioxide Anion Gap BUN Creatinine Estim Creat Clear Calc Estimated GFR POC Glucose 218 H 203 H 221 H Random Glucose C-Peptide Calcium Phosphorus Magnesium Albumin TSH Free T4 06/18/22 06/18/22 06/18/22 14:07 15:15 16:39 WBC RBC Hgb Hct MCV MCH MCHC RDW Plt Count MPV Immature Gran % (Auto) Neut % (Auto) Lymph % (Auto) [place] % (Auto) Eos % (Auto) Baso % (Auto) Lymph # (Auto) [place] # (Auto) Eos # (Auto) Baso # (Auto) Abs Immat Gran (auto) Absolute Neuts (auto) Absolute Nucleated RBC Nucleated RBC % (auto) VBG pH VBG pCO2 VBG pO2 VBG HCO3 VBG O2 Saturation VBG Base Excess Sodium Potassium Chloride Carbon Dioxide Anion Gap BUN Creatinine Estim Creat Clear Calc Estimated GFR POC Glucose 237 H 253 H 240 H Random Glucose C-Peptide Calcium Phosphorus Magnesium Albumin TSH Free T4 06/18/22 06/19/22 06/19/22 21:30 05:12 05:12 WBC 5.2 RBC 2.68 L Hgb 7.9 L Hct 24.8 L MCV 92.5 MCH 29.5 MCHC 31.9 RDW 17.1 H Plt Count 152 L MPV 10.0 Immature Gran % (Auto) 0.2 Neut % (Auto) 63.9 Lymph % (Auto) 15.4 L [place] % (Auto) 8.6 Eos % (Auto) 11.1 H Baso % (Auto) 0.8 Lymph # (Auto) 0.8 L [place] # (Auto) 0.5 Eos # (Auto) 0.6 H Baso # (Auto) 0.0 Abs Immat Gran (auto) 0.01 Absolute Neuts (auto) 3.3 Absolute Nucleated RBC 0.000 Nucleated RBC % (auto) 0.0 VBG pH VBG pCO2 VBG pO2 VBG HCO3 VBG O2 Saturation VBG Base Excess Sodium 130 L Potassium 4.2 D Chloride 98 Carbon Dioxide 22 Anion Gap 14 BUN 24 H Creatinine 3.82 H Estim Creat Clear Calc 22.0 Estimated GFR 16 POC Glucose 274 H Random Glucose 126 H C-Peptide Calcium 9.5 D Phosphorus 3.3 Magnesium 2.1 Albumin 4.3 TSH Free T4 06/19/22 06/19/22 05:13 07:30 WBC RBC Hgb Hct MCV MCH MCHC RDW Plt Count MPV Immature Gran % (Auto) Neut % (Auto) Lymph % (Auto) [place] % (Auto) Eos % (Auto) Baso % (Auto) Lymph # (Auto) [place] # (Auto) Eos # (Auto) Baso # (Auto) Abs Immat Gran (auto) Absolute Neuts (auto) Absolute Nucleated RBC Nucleated RBC % (auto) VBG pH 7.46 H VBG pCO2 35 VBG pO2 75 VBG HCO3 25 VBG O2 Saturation 96.0 VBG Base Excess 1.7 Sodium Potassium Chloride Carbon Dioxide Anion Gap BUN Creatinine Estim Creat Clear Calc Estimated GFR POC Glucose 195 H Random Glucose C-Peptide Calcium Phosphorus Magnesium Albumin TSH Free T4 Microbiology Microbiology Results: Microbiology 06/17/22 08:48 Blood - Venous Blood Culture - Preliminary No growth after 24 hours. 06/17/22 08:48 Blood - Venous Blood Culture - Preliminary No growth after 24 hours. Progress Note: A&P Assessment and plan (1) Metabolic encephalopathy: Status: Acute (2) Diabetes mellitus type 1: Status: Acute (3) ESRD (end stage renal disease) on dialysis: Status: Acute (4) Hypoglycemia: Status: Acute (5) Hepatitis C: Status: Acute (6) COPD (chronic obstructive pulmonary disease): Status: Acute (7) Dementia: Status: Acute (8) Systolic CHF: Status: Acute Plan Assessment: 62-year-old gentleman admitted with acute metabolic encephalopathy and hypoglycemia requiring intubation for airway protection, now improving slowly Plan: Neuro: acute metabolic encephalopathy, likely secondary to hypoglycemia, resolved with resolution of hypoglycemia. Cardiac: No acute issues. Underlying history of chronic systolic congestive heart failure. Underlying hypertension, added hydralazine. Pulmonary: Intubated for airway protection, extubated on 06/18/2022 uneventfully. Underlying history of COPD. Renal: Underlying end-stage renal disease on hemodialysis. Nephrology service care appreciated. Endo: No acute issues. Underlying diabetes mellitus. Continues on sliding scale insulin protocol. GI: No acute issues. ID: No acute issues. Cultures negative to date. Heme/Onc: No acute issues. Psych: No acute issues. Miscellaneous: No acute issues. Prophylaxis: Heparin Diet: Diabetic Quality Stroke Does the patient have a stroke diagnosis?: No VTE Prior VTE?: No VTE Risk Level:: Medical - moderate - high VTE Device Contraindication: N/A - Device Ordered VTE Drug Contraindication: N/A - Med Ordered
--- NOTE | 2022-06-19 09:42 | MHC.CM.PN ---
Pt extubated and will transfer to [place] today. HCP from [facility] faxed and [facility]. Per SW at [facility], pt independently propels self in w/c and is a supervision/set up for other ADL's and meals. Pt is a bedhold at [facility] and will return when medically stable via BLS
--- NOTE | 2022-06-19 11:01 | PM.PNNEP ---
Subjective Subjective Date of Service: 06/19/22 Interval history: Events noted Extubated Physical Exam Vital Signs: Vital Signs: Last Vital Signs Temp 99.1 F 06/19/22 08:00 Pulse 75 06/19/22 10:00 Resp 20 06/19/22 10:00 BP 163/95 H 06/19/22 10:00 Pulse Ox 97 06/19/22 10:00 O2 Del Method 06/19/22 10:00 O2 Flow Rate 1 06/19/22 10:00 FiO2 50 06/18/22 13:00 Oxygen Flow Rate 7 06/17/22 08:45 BMI result Body Mass Index 29.2 Const: General: no acute distress and other ( Sedated on the vent, arousable with sedation vacation) Nutritional Appearance: obese and Edematous Eyes: Sclerae: sclerae normal EOM: EOMs intact bilaterally Neck: Neck: Yes no lymphadenopathy, Yes trachea midline and Yes supple Resp: Auscultation: crackles ( bilateral) Cardio: Rate: regular rate Rhythm: regular rhythm Heart sounds: no gallops, no murmurs and no rubs GI: Palpation (GI): Soft to palpation and Other GI palpation findings present ( Nontender) Auscultation: normal bowel sounds Extrem: General: No clubbing, No cyanosis and Yes edema ( 2+ bilateral) Objective Data Labs CBC & Chem 7: 06/19/22 05:12 06/19/22 05:12 Labs: Laboratory Results - last 24 hr 06/18/22 06/18/22 06/18/22 10:06 10:59 12:08 WBC RBC Hgb Hct MCV MCH MCHC RDW Plt Count MPV Immature Gran % (Auto) Neut % (Auto) Lymph % (Auto) [place] % (Auto) Eos % (Auto) Baso % (Auto) Lymph # (Auto) [place] # (Auto) Eos # (Auto) Baso # (Auto) Abs Immat Gran (auto) Absolute Neuts (auto) Absolute Nucleated RBC Nucleated RBC % (auto) VBG pH VBG pCO2 VBG pO2 VBG HCO3 VBG O2 Saturation VBG Base Excess Sodium Potassium Chloride Carbon Dioxide Anion Gap BUN Creatinine Estim Creat Clear Calc Estimated GFR POC Glucose 213 H 218 H 203 H Random Glucose Calcium Phosphorus Magnesium Albumin 06/18/22 06/18/22 06/18/22 13:17 14:07 15:15 WBC RBC Hgb Hct MCV MCH MCHC RDW Plt Count MPV Immature Gran % (Auto) Neut % (Auto) Lymph % (Auto) [place] % (Auto) Eos % (Auto) Baso % (Auto) Lymph # (Auto) [place] # (Auto) Eos # (Auto) Baso # (Auto) Abs Immat Gran (auto) Absolute Neuts (auto) Absolute Nucleated RBC Nucleated RBC % (auto) VBG pH VBG pCO2 VBG pO2 VBG HCO3 VBG O2 Saturation VBG Base Excess Sodium Potassium Chloride Carbon Dioxide Anion Gap BUN Creatinine Estim Creat Clear Calc Estimated GFR POC Glucose 221 H 237 H 253 H Random Glucose Calcium Phosphorus Magnesium Albumin 06/18/22 06/18/22 06/19/22 16:39 21:30 05:12 WBC 5.2 RBC 2.68 L Hgb 7.9 L Hct 24.8 L MCV 92.5 MCH 29.5 MCHC 31.9 RDW 17.1 H Plt Count 152 L MPV 10.0 Immature Gran % (Auto) 0.2 Neut % (Auto) 63.9 Lymph % (Auto) 15.4 L [place] % (Auto) 8.6 Eos % (Auto) 11.1 H Baso % (Auto) 0.8 Lymph # (Auto) 0.8 L [place] # (Auto) 0.5 Eos # (Auto) 0.6 H Baso # (Auto) 0.0 Abs Immat Gran (auto) 0.01 Absolute Neuts (auto) 3.3 Absolute Nucleated RBC 0.000 Nucleated RBC % (auto) 0.0 VBG pH VBG pCO2 VBG pO2 VBG HCO3 VBG O2 Saturation VBG Base Excess Sodium Potassium Chloride Carbon Dioxide Anion Gap BUN Creatinine Estim Creat Clear Calc Estimated GFR POC Glucose 240 H 274 H Random Glucose Calcium Phosphorus Magnesium Albumin 06/19/22 06/19/22 06/19/22 05:12 05:13 07:30 WBC RBC Hgb Hct MCV MCH MCHC RDW Plt Count MPV Immature Gran % (Auto) Neut % (Auto) Lymph % (Auto) [place] % (Auto) Eos % (Auto) Baso % (Auto) Lymph # (Auto) [place] # (Auto) Eos # (Auto) Baso # (Auto) Abs Immat Gran (auto) Absolute Neuts (auto) Absolute Nucleated RBC Nucleated RBC % (auto) VBG pH 7.46 H VBG pCO2 35 VBG pO2 75 VBG HCO3 25 VBG O2 Saturation 96.0 VBG Base Excess 1.7 Sodium 130 L Potassium 4.2 D Chloride 98 Carbon Dioxide 22 Anion Gap 14 BUN 24 H Creatinine 3.82 H Estim Creat Clear Calc 22.0 Estimated GFR 16 POC Glucose 195 H Random Glucose 126 H Calcium 9.5 D Phosphorus 3.3 Magnesium 2.1 Albumin 4.3 Microbiology Microbiology Results: Microbiology 06/17/22 08:48 Blood - Venous Blood Culture - Preliminary No growth after 48 hours. 06/17/22 08:48 Blood - Venous Blood Culture - Preliminary No growth after 48 hours. Procedures Date of Service Date of Service: 06/19/22 Assessment & Plan Assessment and plan (1) Metabolic encephalopathy: Status: Acute (2) Hypoglycemia: Status: Acute (3) ESRD (end stage renal disease) on dialysis: Status: Acute (4) Diabetes mellitus type 1: Status: Acute Plan Assessment: 62-year-old gentleman admitted with acute metabolic encephalopathy and hypoglycemia requiring intubation for airway protection, now improving slowly HD MWF Remove fluid as tolerated Anemia LIN ordered HNT Keep current meds Low Na diet Remove fluid with HD Time Spent With Patient Time: Total time spent is greater than 50% in coordination of care (as documented) at patient's floor/unit and/or counseling patient: Progress Note: Quality Stroke Does the patient have a stroke diagnosis?: No
[2022-06-19] MEDS: Heparin Sodium,Porcine 5,000 UNIT/ML VIAL 5000 UNIT SUBCUT ×2 (13:27→21:15)
--- NOTE | 2022-06-19 14:31 | PM.EVENT ---
Event Note Date of Service: 06/19/22 Event Note: Discussed case with Dr. Meraz of, transferred from ICU. Treated for hypoglycemia with obtundation requiring airway protection and ventilator support, end-stage renal disease on dialysis Saturday and Saturday. Stable at this time, placed on sliding scale. Diabetes mellitus Hepatitis-C Heart failure with reduced ejection fraction End-stage renal disease on hemodialysis Hypertensive cardiomyopathy
[2022-06-19 15:57] LABS: Glucose, Whole Blood 196 mg/dL (60-115)
[2022-06-19 16:19] LABS: Glucose, Whole Blood 257 mg/dL (60-115)
[2022-06-19] MEDS: cloNIDine 0.2 MG PATCH.TDWK TRANSDERMA (16:39)
--- NOTE | 2022-06-19 17:16 | PC.NURSE ---
Pt requiring frequent reorientation d/t dementia, otherwise is calm and cooperative. [place] and Central line Dc'd at 1000 per Md's order, tolerated well. Pt weaned off to RA and satting appropriately. Pt's BP continues to be elevated post Hydralazine, MD aware and Clonidine patch applied per order. Pt transferred to Med-Surg and report given to RN receiving pt who will continue with the plan of care.
[2022-06-19 19:45] LABS: Glucose, Whole Blood 175 mg/dL (60-115)
[2022-06-19] MEDS: Tamsulosin HCL 0.4 MG CAPSULE PO (21:15)
[2022-06-19] MEDS: Mirtazapine 15 MG TABLET PO (21:15)
[2022-06-20 04:00] VITALS: BP 163/88; PULSE 74; RESP 14; TEMP 37; O2SAT 92
[2022-06-20 06:22] LABS: MANUAL DIFF FLAG NO
[2022-06-20 06:28] LABS: Basophils Percent Auto 0.6 % (0-2); Eosinophils Absolute Auto 0.5 X10*3/uL (0.0-0.4); Eosinophils Percent Auto 10.2 % (0-4); Hemoglobin 7.9 g/dl (14.0-18.0); Imm Gran Abs Auto 0.01 X10*3/uL (0.00-0.03); Imm Gran Pct Auto 0.2 % (0.0-0.4); Lymphocytes Absolute Auto 0.9 X10*3/uL (1.2-4.9); Lymphocytes Percent Auto 16.9 % (20-40); Mean Corpuscular HGB Conc 31.6 g/dl (31.0-36.0); Mean Corpuscular Hemoglobin 29.6 pg (27.0-33.0); Mean Corpuscular Volume 93.6 fL (80.0-98.0); Mean Platelet Volume 10.7 fL (9.4-12.4); Monocytes Absolute Auto 0.4 X10*3/uL (0.1-1.2); Monocytes Percent Auto 7.3 % (2-11); Neutrophils Absolute Auto 3.3 x10*3/uL (2.0-8.3); Neutrophils Percent Auto 64.8 % (45-73); Platelet Count 177 X10*3/uL (160-400); Red Blood Count 2.67 X10*6/uL (4.60-5.80); Red Cell Distribution Width 16.9 % (11.0-16.0); White Blood Count 5.1 X10*3/uL (4.8-10.8)
[2022-06-20 07:22] VITALS: BP 178/77; PULSE 78; RESP 18; TEMP 37.1; O2SAT 91
[2022-06-20 07:38] LABS: Glucose, Whole Blood 254 mg/dL (60-115)
--- NOTE | 2022-06-20 07:47 | P.PNIM_ITS ---
Subjective Subjective Date of Service: 06/20/22 Review of Systems Follow up ICU transfer for hypoglycemia Physical Exam Vital Signs: Vital Signs: Last Vital Signs Temp 98.8 F 06/20/22 07:22 Pulse 78 06/20/22 07:22 Resp 18 06/20/22 07:22 BP 178/77 H 06/20/22 07:22 Pulse Ox 91 L 06/20/22 07:22 O2 Del Method 06/20/22 07:22 O2 Flow Rate 1 06/19/22 16:00 FiO2 50 06/18/22 13:00 Oxygen Flow Rate 7 06/17/22 08:45 BMI result Body Mass Index 29.2 Appearing in no acute distress lung sounds are clear to auscultation heart regular rate rhythm, clear S1, S2 positive bowel sounds, abdomen is soft, nontender neuro patient is alert x3, no focal deficits Objective Data Active Medications Acetaminophen (Acetaminophen 325 Mg Tablet) 650 mg PO Q6H PRN PRN Reason: Pain, Mild (Pain Scale 1-3) Last Admin: 06/18/22 20:30 Dose: 650 mg Documented By: YARELIS Amlodipine Besylate (Amlodipine Besylate 10 Mg Tablet) 10 mg PO DAILY [facility]; Protocol Last Admin: 06/19/22 06:06 Dose: 10 mg Documented By: YARELIS Carvedilol (Carvedilol 25 Mg Tablet) 25 mg PO BID [facility]; Protocol Last Admin: 06/19/22 21:15 Dose: 25 mg Documented By: MIKEY Dextrose (Dextrose 50 % 25 Gm/50 Ml Syringe) 25 gm IVPUSH Q15M PRN; Protocol PRN Reason: per Hypoglycemia Standing Ord. Last Admin: 06/17/22 22:48 Dose: 25 gm Documented By: YARELIS Glucose (Glucose Gel 15 Gm Gel..Gram.) 15 gm PO Q15M PRN; Protocol PRN Reason: per Hypoglycemia Standing Ord. Heparin Sodium (Porcine) (Heparin Sodium,Porcine 5,000 Unit/Ml Vial) 5,000 unit SUBCUT Q12H [facility] Last Admin: 06/19/22 21:15 Dose: 5,000 unit Documented By: MIKEY Hydralazine HCl (Hydralazine Hcl 25 Mg Tablet) 25 mg PO TID [facility]; Protocol Last Admin: 06/19/22 21:15 Dose: 25 mg Documented By: MIKEY Insulin Human Lispro (Insulin Lispro 100 Unit/Ml 3 Ml Vial) 0 unit SUBCUT QIDACHS [facility]; Protocol Last Admin: 06/19/22 21:15 Dose: 2 unit Documented By: MIKEY Losartan Potassium (Losartan Potassium 50 Mg Tablet) 100 mg PO BID [facility]; Protocol Last Admin: 06/19/22 21:15 Dose: 100 mg Documented By: MIKEY Mirtazapine (Mirtazapine 15 Mg Tablet) 15 mg PO BEDTIME [facility] Last Admin: 06/19/22 21:15 Dose: 15 mg Documented By: MIKEY Pharmacy Consult (Consult Rx Perform Med Rec) 1 each MISCELLANE ONCE PRN PRN Reason: Consult order Tamsulosin HCl (Tamsulosin Hcl 0.4 Mg Capsule) 0.4 mg PO BEDTIME [facility] Last Admin: 06/19/22 21:15 Dose: 0.4 mg Documented By: MIKEY Labs CBC & Chem 7: 06/20/22 05:42 06/20/22 05:42 Labs: Laboratory Results - last 24 hr 06/19/22 06/19/22 06/19/22 07:30 11:31 16:15 MCV MCH MCHC RDW Plt Count MPV Immature Gran % (Auto) Neut % (Auto) Lymph % (Auto) [place] % (Auto) Eos % (Auto) Baso % (Auto) Lymph # (Auto) [place] # (Auto) Eos # (Auto) Baso # (Auto) Abs Immat Gran (auto) Absolute Neuts (auto) Absolute Nucleated RBC Nucleated RBC % (auto) Anion Gap Estim Creat Clear Calc Estimated GFR POC Glucose 195 H 196 H 257 H Random Glucose Calcium 06/19/22 06/20/22 06/20/22 19:27 05:42 05:42 MCV 93.6 MCH 29.6 MCHC 31.6 RDW 16.9 H Plt Count 177 MPV 10.7 Immature Gran % (Auto) 0.2 Neut % (Auto) 64.8 Lymph % (Auto) 16.9 L [place] % (Auto) 7.3 Eos % (Auto) 10.2 H Baso % (Auto) 0.6 Lymph # (Auto) 0.9 L [place] # (Auto) 0.4 Eos # (Auto) 0.5 H Baso # (Auto) 0.0 Abs Immat Gran (auto) 0.01 Absolute Neuts (auto) 3.3 Absolute Nucleated RBC 0.000 Nucleated RBC % (auto) 0.0 Anion Gap Cancelled Estim Creat Clear Calc Cancelled Estimated GFR Cancelled POC Glucose 175 H Random Glucose Cancelled Calcium Cancelled 06/20/22 07:32 MCV MCH MCHC RDW Plt Count MPV Immature Gran % (Auto) Neut % (Auto) Lymph % (Auto) [place] % (Auto) Eos % (Auto) Baso % (Auto) Lymph # (Auto) [place] # (Auto) Eos # (Auto) Baso # (Auto) Abs Immat Gran (auto) Absolute Neuts (auto) Absolute Nucleated RBC Nucleated RBC % (auto) Anion Gap Estim Creat Clear Calc Estimated GFR POC Glucose 254 H Random Glucose Calcium Microbiology Microbiology Results: Microbiology 06/17/22 08:48 Blood Culture - Preliminary Blood - Venous No growth after 48 hours. 06/17/22 08:48 Blood Culture - Preliminary Blood - Venous No growth after 48 hours. Assessment and Plan (1) Dementia: Status: Acute Plan 62 year old man admitted to ICU with hypoglycemia with obtundation requiring airway protection and ventilator support. Transferred to regular medical floor 06/19/2022 Metabolic encephalopathy. Resolved secondary to severe hypoglycemia Diabetes 2 with Hypoglycemia glucose less than 18 initially, intubated for airway protection in ICU, treated with glucose and D5W/D10. insulin levels high, cpeptide low Sliding scale COPD no exacerbation Normocytic Anemia Also secondary to renal disease Stable HFrEF continue coreg ESRD dialysis MWF nephro following Hypertension losartan, hydralazine, norvasc DVT prophylaxsis with heparin Attending Dr. Austin Full code Disposition. Possible discharge back to [facility] tomorrow Continued hospitalization for treatment of Hypoglycemia Quality Stroke Does the patient have a stroke diagnosis?: No VTE Prior VTE?: No VTE Risk Level:: Medical - moderate - high VTE Device Contraindication: N/A - Device Ordered VTE Drug Contraindication: N/A - Med Ordered
[2022-06-20] MEDS: Insulin Lispro 100 UNIT/ML 3 ML VIAL SUBCUT ×3 (07:59→20:34)
[2022-06-20] MEDS: carvediloL 25 MG TABLET PO ×2 (08:00→20:35)
[2022-06-20] MEDS: amLODIPine Besylate 10 MG TABLET PO (08:00)
[2022-06-20] MEDS: hydrALAZINE HCl 25 MG TABLET PO ×3 (08:00→20:35)
[2022-06-20] MEDS: Losartan Potassium 50 MG TABLET 100 MG PO ×2 (08:00→20:34)
[2022-06-20 08:11] LABS: Albumin Level 3.9 g/dL (3.5-5.0); Anion Gap 17 (12-20); Blood Urea Nitrogen 37 mg/dL (9-16); Calcium 9.1 mg/dL (8.4-10.2); Carbon Dioxide 20 mmol/L (22-29); Chloride 96 mmol/L (96-108); Estimated Glomerular Filt Rate 12; Glucose Random 198 mg/dL (60-115); Magnesium 2.1 mg/dL (1.6-2.6); Phosphorus 3.3 mg/dL (2.7-4.5); Potassium 4.2 mmol/L (3.3-5.1); Sodium 129 mmol/L (135-145)
--- NOTE | 2022-06-20 09:42 | MHC.CM.PN ---
[facility]
--- NOTE | 2022-06-20 11:23 | W.PM.DNNEP ---
Subjective Subjective This patient was seen during dialysis. Interval history: Events noted Extubated Physical Exam Vital Signs: Vital Signs: Last Vital Signs Temp 98.8 F 06/20/22 07:22 Pulse 78 06/20/22 07:22 Resp 18 06/20/22 07:22 BP 178/77 H 06/20/22 07:22 Pulse Ox 91 L 06/20/22 07:22 O2 Del Method 06/20/22 07:22 O2 Flow Rate 1 06/19/22 16:00 FiO2 50 06/18/22 13:00 Oxygen Flow Rate 7 06/17/22 08:45 BMI result Body Mass Index 29.2 Const: General: no acute distress and other ( Sedated on the vent, arousable with sedation vacation) Nutritional Appearance: obese and Edematous Eyes: Sclerae: sclerae normal EOM: EOMs intact bilaterally Neck: Neck: Yes no lymphadenopathy, Yes trachea midline and Yes supple Resp: Auscultation: crackles ( bilateral) Cardio: Rate: regular rate Rhythm: regular rhythm Heart sounds: no gallops, no murmurs and no rubs GI: Palpation (GI): Soft to palpation and Other GI palpation findings present ( Nontender) Auscultation: normal bowel sounds Extrem: General: No clubbing, No cyanosis and Yes edema ( 2+ bilateral) Assessment & Plan Assessment and plan (1) Metabolic encephalopathy: Status: Acute (2) Hypoglycemia: Status: Acute (3) ESRD (end stage renal disease) on dialysis: Status: Acute (4) Diabetes mellitus type 1: Status: Acute Plan Assessment: 62-year-old gentleman admitted with acute metabolic encephalopathy and hypoglycemia requiring intubation for airway protection, now improving slowly HD MWF Remove fluid as tolerated Anemia LIN ordered HTN BP better today Keep current meds Low Na diet Remove fluid with HD Time Spent With Patient Time: Total time spent is greater than 50% in coordination of care (as documented) at patient's floor/unit and/or counseling patient: Procedures Date of Service Date of Service: 06/20/22
[2022-06-20 12:00] VITALS: BP 160/79; PULSE 73; RESP 18; TEMP 36.1; O2SAT 98
[2022-06-20 13:37] LABS: Glucose, Whole Blood 112 mg/dL (60-115)
[2022-06-20] MEDS: Heparin Sodium,Porcine 5,000 UNIT/ML VIAL 5000 UNIT SUBCUT ×2 (13:50→20:40)
[2022-06-20] MEDS: Acetaminophen 325 MG TABLET 650 MG PO (13:50)
[2022-06-20 15:39] VITALS: BP 174/77; PULSE 88; RESP 18; TEMP 37.1; O2SAT 99
[2022-06-20 15:56] LABS: Glucose, Whole Blood 197 mg/dL (60-115)
[2022-06-20] MEDS: oxyCODONE HCl Immed Release 5 MG TABLET PO ×2 (17:29→23:37)
[2022-06-20 20:00] VITALS: BP 172/93; PULSE 99; RESP 18; TEMP 37.1; O2SAT 98
[2022-06-20 20:22] LABS: Glucose, Whole Blood 225 mg/dL (60-115)
[2022-06-20] MEDS: Tamsulosin HCL 0.4 MG CAPSULE PO (20:35)
[2022-06-20] MEDS: Mirtazapine 15 MG TABLET PO (20:35)
[2022-06-20 22:27] VITALS: BP 168/88; PULSE 77
[2022-06-21] VITALS: BP 149/74; PULSE 64; RESP 14; TEMP 37; O2SAT 94
[2022-06-21 04:00] VITALS: BP 182/77; PULSE 75; RESP 14; TEMP 37.3; O2SAT 95
[2022-06-21] MEDS: oxyCODONE HCl Immed Release 5 MG TABLET PO ×2 (06:01→11:42)
[2022-06-21 06:04] VITALS: BP 160/82
[2022-06-21 07:32] LABS: Glucose, Whole Blood 376 mg/dL (60-115)
[2022-06-21] MEDS: Losartan Potassium 50 MG TABLET 100 MG PO (07:34)
[2022-06-21] MEDS: carvediloL 25 MG TABLET PO (07:34)
[2022-06-21] MEDS: hydrALAZINE HCl 25 MG TABLET PO ×2 (07:34→15:14)
[2022-06-21] MEDS: Insulin Lispro 100 UNIT/ML 3 ML VIAL SUBCUT ×3 (07:34→16:35)
[2022-06-21] MEDS: amLODIPine Besylate 10 MG TABLET PO (07:34)
[2022-06-21 07:36] VITALS: BP 185/87; PULSE 74; RESP 15; TEMP 37.6; O2SAT 92
[2022-06-21] MEDS: Acetaminophen 325 MG TABLET 650 MG PO (10:44)
[2022-06-21 11:07] LABS: Glucose, Whole Blood 279 mg/dL (60-115)
[2022-06-21 11:12] VITALS: BP 150/76; PULSE 68; RESP 15; TEMP 36.4; O2SAT 93
--- NOTE | 2022-06-21 11:15 | PM.PNNEP ---
Subjective Subjective Date of Service: 07/02/22 Interval history: Events noted Extubated Physical Exam Vital Signs: Vital Signs: Last Vital Signs Temp 97.5 F 06/21/22 11:12 Pulse 68 06/21/22 11:12 Resp 15 06/21/22 11:12 BP 150/76 H 06/21/22 11:12 Pulse Ox 93 06/21/22 11:12 O2 Del Method 06/21/22 11:12 O2 Flow Rate 1 06/19/22 16:00 FiO2 50 06/18/22 13:00 Oxygen Flow Rate 7 06/17/22 08:45 BMI result Body Mass Index 29.2 Const: General: no acute distress and other ( Sedated on the vent, arousable with sedation vacation) Nutritional Appearance: obese and Edematous Eyes: Sclerae: sclerae normal EOM: EOMs intact bilaterally Neck: Neck: Yes no lymphadenopathy, Yes trachea midline and Yes supple Resp: Auscultation: crackles ( bilateral) Cardio: Rate: regular rate Rhythm: regular rhythm Heart sounds: no gallops, no murmurs and no rubs GI: Palpation (GI): Soft to palpation and Other GI palpation findings present ( Nontender) Auscultation: normal bowel sounds Extrem: General: No clubbing, No cyanosis and Yes edema ( 2+ bilateral) Objective Data Labs CBC & Chem 7: 06/20/22 05:42 06/20/22 05:42 Labs: Laboratory Results - last 24 hr 06/20/22 06/20/22 06/20/22 13:33 15:33 19:50 POC Glucose 112 197 H 225 H 06/21/22 06/21/22 07:22 11:01 POC Glucose 376 H* 279 H Microbiology Microbiology Results: Microbiology 06/17/22 08:48 Blood - Venous Blood Culture - Preliminary No growth after 48 hours. 06/17/22 08:48 Blood - Venous Blood Culture - Preliminary No growth after 48 hours. Procedures Date of Service Date of Service: 06/21/22 Assessment & Plan Assessment and plan (1) Metabolic encephalopathy: Status: Acute (2) Hypoglycemia: Status: Acute (3) ESRD (end stage renal disease) on dialysis: Status: Inactive (4) Diabetes mellitus type 1: Status: Inactive Plan Assessment: 62-year-old gentleman admitted with acute metabolic encephalopathy and hypoglycemia requiring intubation for airway protection, now improving slowly HD MWF Remove fluid as tolerated Anemia LIN ordered HTN BP better today Keep current meds Low Na diet Remove fluid with HD DC planning Time Spent With Patient Time: Total time spent is greater than 50% in coordination of care (as documented) at patient's floor/unit and/or counseling patient: Progress Note: Quality Stroke Does the patient have a stroke diagnosis?: No
[2022-06-21] MEDS: Heparin Sodium,Porcine 5,000 UNIT/ML VIAL 5000 UNIT SUBCUT (11:42)
--- NOTE | 2022-06-21 12:00 | MHC.CM.PN ---
PER MD ROUNDS, PT WILL BE CLEARED TO DC TODAY UPDATES SENT [facility] AWAITING RESPONSE
--- NOTE | 2022-06-21 12:39 | P.DS_ITS ---
DS: Providers Provider Date of Service: 06/21/22 Date of admission: 06/17/22 10:35 Date of discharge: 06/21/22 Primary care physician: Susanna Daniels MD Attending physician on discharge: Manny Austin Discharging clinician: Lisbeth Bazan DS: Diagnosis Discharge Diagnosis (1) Metabolic encephalopathy: Status: Acute (2) Hypoglycemia: Status: Acute (3) ESRD (end stage renal disease) on dialysis: Status: Acute DS: Summary Hospital Course Hospital Course: From H&P on day of admission 62-year-old insulin-dependent diabetic male with end-stage renal disease and dialysis dependence also known to be hypertensive and hyperlipidemic in was found unresponsive in his bed and a nursing facility Glucose was less than 30 and he was given D50 and was brought to the hospital and he has never recovered consciousness not even to deep pain essentially remains flaccid initially with 3 mm a but symmetric pupils now they are about 5 mm and they are responsive to light and remains symmetric but he continues to remain comatose and unresponsive even to deep pain and on multiple occasions throughout the day without there having been any insulin administered he continues to remain intractably hypoglycemic and despite a D5W ongoing drip that he has He remains mildly hypertensive bedside echo showing concentric left ventricular hypertrophy but greater than 60% ejection fraction with no primary valve or pericardial disease and days chest x-ray shows but bilateral pleural effusions right greater than left corroborated on CT scan of the chest with no infiltrate and abdominal CT scan basically benign showing nothing and same with his head CT scan While intubated he was given propofol as well as 4 mg of IV Versed and he did not awaken there was no particular response sedation was withheld and at that point He was also noted to be hypothermic and he was cultured those cultures are pending but no source found through is CT scanning and 3 urinalysis Metabolic encephalopathy.? Resolved secondary to severe hypoglycemia Diabetes 2 with Hypoglycemia glucose less than 18 initially, intubated for airway protection in ICU, treated with glucose and D5W/D10. He was extubated and downgraded to the medical floor. Insulin levels were high and cpeptide low, pointing to exogenous insulin as cause. Long acting insulin has been on hold. Blood sugars have been stable off of D5/D10 and have started to trend up. Hypothermia likely from severe hypoglycemia, resolved. Recommend to monitor closely on a sliding scale and slowly resume long acting insulin as needed. ESRD. continue MWF schedule Time Spent with Patient Time attestation: Total time spent providing and/or coordinating discharge services: Discharge coordination time: Greater than 30 minutes Quality: Safe Use of Opioids Does Pt have an Active Cancer Diagnosis on the Problem List?: No Quality: Stroke Does the patient have a stroke diagnosis?: No Physical Exam Vital Signs: Vital Signs: Last Vital Signs Temp 97.5 F 06/21/22 11:12 Pulse 68 06/21/22 11:12 Resp 15 06/21/22 11:12 BP 150/76 H 06/21/22 11:12 Pulse Ox 93 06/21/22 11:12 O2 Del Method 06/21/22 11:12 O2 Flow Rate 1 06/19/22 16:00 FiO2 50 06/18/22 13:00 Oxygen Flow Rate 7 06/17/22 08:45 BMI result Body Mass Index 29.2 DS: Data Data Completed and Pending Labs on day of discharge: Laboratory Results - last 24 hr 06/20/22 06/20/22 06/20/22 13:33 15:33 19:50 POC Glucose 112 197 H 225 H 06/21/22 06/21/22 07:22 11:01 POC Glucose 376 H* 279 H Preliminary micro results at discharge 06/17/22 08:48 Blood Culture - Preliminary Blood - Venous No growth after 48 hours. 06/17/22 08:48 Blood Culture - Preliminary Blood - Venous No growth after 48 hours. Discharge Plan Discharge Anticipated Discharge Date/Time: 06/21/22 12:29 Patient Disposition: er [facility] Discharge Diagnosis: hypoglycemia encephalopathy Referrals: [facility] [Outside] - 1 Week Susanna Daniels MD [Primary Care Provider] - 1 Week Discharge Medications: New hydralazine 25 mg Tablet 25 mg PO TID 30 Days Qty: 90 0RF Protocol: Hold for SBP< HOLD for SBP < : 90 Continued multivitamin Tablet 1 tab PO DAILY atorvastatin 80 mg tablet 1 tab PO DAILY carvedilol 25 mg tablet 1 tab PO BID tamsulosin 0.4 mg capsule 1 cap PO BEDTIME amlodipine 10 mg tablet 1 tab PO QAM calcitriol 0.5 mcg Capsule 1 mcg PO MOWEFR Rx Instructions: administer after dialysis on dialysis days mirtazapine 15 mg tablet 1 tab PO BEDTIME insulin lispro [Humalog U-100 Insulin] 100 unit/mL Solution 1 sliding scale dose SUBCUT USEASDIRECTD Protocol: Insulin Correction Scale Less than or equal to 110 ---- Give (units): 0 111 to 150 Give (units): 0 151 to 200 Give (units): 1 201 to 250 Give (units): 2 251 to 300 Give (units): 2 301 to 350 Give (units): 3 Greater than 350 Give (units): 3 Call MD if Blood Glucose > : 400 losartan 100 mg tablet 100 mg PO BID duloxetine 60 mg capsule,delayed release(DR/EC) 1 cap PO DAILY cholecalciferol (vitamin D3) 1,250 mcg (50,000 unit) Tablet 1,250 mcg PO QMONTH Discontinued insulin glargine 100 unit/mL Solution 10 unit SUBCUT BEDTIME trazodone 50 mg tablet 1 tab PO BEDTIME gabapentin 300 mg capsule 1 cap PO DAILY clonidine 0.3 mg/24 hr patch weekly 0.3 mg topical SA Discharge Orders: Discharge Order (Routine); Ordered 06/21/22 Ordered By: Lisbeth Bazan Activity on Discharge: As tolerated Stand Alone Forms: Patient Portal Discharge page Care Plan Goals: see below Health Concerns: encephalopathy. resolved. hypoglycemia. resolved. Plan of Treatment: Hypoglycemia resolved. monitor blood sugar on sliding scale. lantus has been discontinued, may need to be resumed at lower dose and uptitrated slowly clonidine was discontinued, started on hydralazine 25 TID gabapentin, trazodone discontinued for encephalopathy. continue outpatient hemodialysis as previously scheduled Assessment: see discharge summary Discharge Date/Time: 06/21/22 17:23
[2022-06-21 13:16] LABS: COVID-19 Test Negative (Negative); IDNOW Serial# BCCEAD1C
[2022-06-21 15:23] LABS: Glucose, Whole Blood 208 mg/dL (60-115)
[2022-06-21 15:31] VITALS: BP 140/69; PULSE 67; RESP 16; TEMP 36.6; O2SAT 94
[2022-06-22 04:49] LABS: Proinsulin <4.0 pmol/L (< OR = 18.8)
[2022-06-23 02:08] LABS: Insulin Auto Antibody <0.4 U/mL (<0.4)
== END 2022-06-21 17:23 | disposition skilled nursing facility (03) | DRG 637 ==
LOC: HO.ED 10:21 → HO.EDOVER 10:45 → HO.ICU 11:24 → HO.S3 06-19 15:20
PROVIDERS: Internal Medicine Pulmonary Disease; Nurse Practitioner Acute Care; Nurse Practitioner Family; Physician Assistant; Admitting Provider Internal Medicine Cardiovascular Disease; Emergency Provider Emergency Medicine; PCP Internal Medicine; Visit Provider Physician Assistant Medical
DX: E10.641 Type 1 diabetes mellitus with hypoglycemia with coma (principal); G93.41 Metabolic encephalopathy; N18.6 End stage renal disease; I13.2 Hypertensive heart and chronic kidney disease with heart failure and with stage 5 chronic kidney disease, or end stage renal disease; I50.22 Chronic systolic (congestive) heart failure; J44.9 Chronic obstructive pulmonary disease, unspecified; D63.1 Anemia in chronic kidney disease; E78.5 Hyperlipidemia, unspecified; R68.0 Hypothermia, not associated with low environmental temperature; F03.90 Unspecified dementia, unspecified severity, without behavioral disturbance, psychotic disturbance, mood disturbance, and anxiety; E10.22 Type 1 diabetes mellitus with diabetic chronic kidney disease; Z99.2 Dependence on renal dialysis; Z20.822 Contact with and (suspected) exposure to COVID-19; Z79.899 Other long term (current) drug therapy
CPT/HCPCS: 36415; 70450; 71045; 71250; 74176; 80048; 80053; 80076; 80307; 81001; 82040; 82550; 82803; 82947; 83036; 83525; 83605; 83690; 83735; 83880; 84100; 84206; 84439; 84443; 84484; 84681; 85025; 85027; 85610; 86337; 87040; 87635; 90935; 90999; 93005; 94002; 94003; 96365; 96375; 99284; 99285; C1758; J0885; J1940; J2543; J3010; P9047

== ENCOUNTER 2022-08-09 21:37 | Emergency (ER) | payer OTHER, SELFPAY ==
--- NOTE | ~2022-08-09 | CT_ITS ---
EXAMINATION: NONCONTRAST HEAD CT NONCONTRAST CERVICAL SPINE CT INDICATION INFORMATION: Pain. Trauma. COMPARISON: 06/17/2022 TECHNIQUE: Separate noncontrast CT examinations of the head and cervical spine were performed. Coronal and sagittal images were created for each examination at the technologist workstation. This CT examination was performed using dose optimization techniques as appropriate, variously including the following: *Automated exposure control *Adjustment of mA and/or kV according to patient size (this includes techniques or standardized protocols for targeted exams where dose is matched to indication/reason for exam; i.e. extremities or head) *Use of iterative reconstruction technique DLP: 1145 mGy-cm FINDINGS: Head: There is no evidence of acute intracranial hemorrhage or territorial infarction. No abnormal mass effect or midline shift is seen. Zafar to white matter differentiation is well preserved. No extra-axial fluid collections are identified. No hydrocephalus. Proportional prominence of the ventricles and sulcal spaces is consistent with mild volume loss. Patchy periventricular and deep white matter hypoattenuation is consistent with mild small vessel ischemic changes. Prominent subgaleal hematoma overlies the right parietal-occipital region. No calvarial fracture. Partially opacified right posterior ethmoid air cells. The mastoid air cells and visualized portions of the paranasal sinuses are otherwise well aerated. Cervical spine: There is anatomic alignment of the vertebral bodies and posterior elements. The atlantoaxial and atlantooccipital articulations are intact. Vertebral body heights and intervertebral disc spaces are maintained. Partial ossification of the posterior longitudinal ligament. Minimal facet arthropathy. No evidence of acute fracture. No prevertebral soft tissue swelling. Visualized portions of the lung apices are unremarkable. The thyroid gland is unremarkable. CT/CT cervical spine wo IV con IMPRESSION: 1. No acute intracranial finding. 2. No acute fracture or malalignment of the cervical spine.
--- NOTE | ~2022-08-09 | XR_ITS ---
EXAMINATION: XR CHEST CLINICAL INFORMATION: Fever COMPARISON: 06/18/2022 TECHNIQUE: Frontal view of the chest was obtained. FINDINGS: Lungs are well expanded. Diffuse bronchial wall thickening. Small left pleural effusion. No pneumothorax. No dense consolidation. The cardiomediastinal silhouette remains prominent, with a calcified aorta. XR/XR chest 1V IMPRESSION: Small left pleural effusion. Bronchial wall thickening can be seen with a small airways process such as asthma or atypical/viral infection.
[2022-08-09 21:45] VITALS: BP 176/86; PULSE 78; RESP 16; TEMP 36.9; O2SAT 96; O2SAT 98; BMI 24.3
[2022-08-09 21:52] VITALS: BP 176/86; PULSE 79; RESP 16; TEMP 36.9
[2022-08-09 21:54] LABS: Glucose, Whole Blood 370 mg/dL (60-115)
[2022-08-09 21:55] VITALS: BP 176/86; PULSE 79; RESP 16; TEMP 36.9; O2SAT 97
[2022-08-09 21:56] VITALS: BP 168/78; PULSE 80; O2SAT 98
--- NOTE | 2022-08-09 21:56 | PC.NURSE ---
Nursing Assessment: Pt is hypertensive on the monitor, pt is connected to the continuos compliance monitor and it shows chronic a-fib. Pt has dementia at based [facility]. Pt came in due to a fall at [facility]. According to pt statement, pt says, my roommate swing on me I cannot remember anything else . Pt reports pain on the posterior of his head/ neck 03/31. Pt is a/o x2, pt arouse to stimulus, pt has bilaterally strength upper/lower extremities. PEERAL pupils, clear speech. This nurse provided a safe environment for pt, pt is supine position with the cervical collar on.
[2022-08-09 22:00] VITALS: BP 165/66; PULSE 79; RESP 16; TEMP 37; O2SAT 97
--- NOTE | 2022-08-09 22:11 | ED.FALL ---
HPI - Fall General Chief Complaint: Fall Stated Complaint: head strike, fall, high blood sugar Time Seen by Provider: 08/09/22 22:10 Source: patient and RN notes reviewed Mode of arrival: EMS Limitations: no limitations History of Present Illness HPI Narrative: Patient came from long-term with History of hypertension and renal disease on dialysis hypertension , diabetic AFib not on anticoagulants, metabolic encephalopathy with memory loss, walks with a walker was in his room in the long-term standing without using walker his roommate swing at him and patient lost balance and fell down patient remembers falling does not remember afterwards complaining of headache big hematoma at the back of the head does not remember whether he hit the wall or the floor no vomiting. Patient had dialysis earlier today. Per nursing staff patient had temperature of 100.6 degrees blood pressure 186/86 no seizures no vomiting Related Data Home Medications Medication Instructions Recorded Confirmed amlodipine 10 mg tablet 1 tab PO QAM 06/17/22 06/17/22 atorvastatin 80 mg tablet 1 tab PO DAILY 06/17/22 06/17/22 calcitriol 0.5 mcg capsule 1 mcg PO MOWEFR 06/17/22 06/17/22 carvedilol 25 mg tablet 1 tab PO BID 06/17/22 06/17/22 cholecalciferol (vitamin D3) 1,250 1,250 mcg PO QMONTH 06/17/22 06/17/22 mcg (50,000 unit) tablet duloxetine 60 mg capsule,delayed 1 cap PO DAILY 06/17/22 06/17/22 release insulin lispro 100 unit/mL 1 sliding scale dose subcut 06/17/22 06/17/22 subcutaneous solution (Humalog USEASDIRECTD U-100 Insulin) losartan 100 mg tablet 100 mg PO BID 06/17/22 06/17/22 mirtazapine 15 mg tablet 1 tab PO BEDTIME 06/17/22 06/17/22 multivitamin 1 tab PO DAILY 06/17/22 06/17/22 tamsulosin 0.4 mg capsule 1 cap PO BEDTIME 06/17/22 06/17/22 Previous Rx's Medication Instructions Recorded hydralazine 25 mg tablet 25 mg PO TID 30 days #90 tabs 06/21/22 Allergies Allergy/AdvReac Type Severity Reaction Status Date / Time No Known Allergies Allergy Verified 06/17/22 08:41 Review of Systems Review of Systems: Yes all other systems are reviewed and are negative [facility] Past Medical History Medical History Anemia Atrial fibrillation Bacteremia Benign prostate hyperplasia Cellulitis Constipation COPD (chronic obstructive pulmonary disease) Dementia Diabetes mellitus type 1 Dysphagia End stage renal disease on dialysis ESRD (end stage renal disease) on dialysis Gastrointestinal hemorrhage Hepatitis C Hyperkalemia Hyperlipemia Hypernatremia Hyperparathyroidism Hypertension Hypertensive cardiopathy Major depressive disorder Nicotine dependence Osteoarthritis Peripheral vascular disease Sepsis Septic shock Streptococcal sepsis, unspecified Systolic CHF Urine retention Vitamin D deficiency Social History Social History Household Members: Other Household Members Other:: [facility] Housing: Other Unable to assess alcohol history related to: Unable to respond Patient Tobacco Use Status: Tobacco use Unknown Smoked in Last 30 Days: Yes Use of substances other than those prescribed or required for medical reasons: No Advance Directives: Yes Advance Directives on File: Yes Advance Directives Date on File: 06/22/22 Physical Exam Vital Signs: Vital Signs: Last Vital Signs Temp 98.2 F 08/10/22 03:37 Pulse 72 08/10/22 03:37 Resp 15 08/10/22 03:37 BP 161/83 H 08/10/22 03:37 Pulse Ox 96 08/10/22 03:37 O2 Del Method 08/10/22 03:37 BMI result Body Mass Index 24.3 Appearance: Alert. Oriented X3. No acute distress. Eyes: PERRLA, No Nystagmus HEENT: Pharynx normal. Oral Mucosa moist hematoma at that back of the head Neck: Normal inspection. Neck supple. No midline tenderness CVS: Normal heart rate and rhythm. Pulses normal. Respiratory: No respiratory distress. Equal air entry bilateral, no wheezing/rales/rhonchi Abdomen: Soft and nontender. Bowel sounds are present, no mass palpable, no CVA tenderness Skin: Skin warm and dry. Normal skin color. Normal skin turgor. Extremities: No lower extremity edema. No calf tenderness Neuro: Oriented X 3. No motor deficit. No sensory deficit.No cerebellar signs , cranial nerves II-XII intact Medications Administered Discontinued Medications Generic Name Dose Route Start Last Admin Trade Name Freq PRN Reason Stop Dose Admin Acetaminophen 650 mg 08/09/22 22:44 08/09/22 22:52 Acetaminophen 325 Mg Tablet PO 08/09/22 22:45 650 mg ONCE ONE Administration Sodium Chloride 500 mls @ 250 mls/hr 08/09/22 23:45 08/10/22 03:06 Ns IVCONT 08/10/22 01:44 Infused .Q2H ESTELA Infusion Vancomycin HCl 2,000 mg in 520 mls @ 260 mls/hr 08/10/22 00:15 08/10/22 02:37 Vancomycin/Ns IV 08/10/22 02:14 Infused ONCE ONE Infusion Insulin Human Lispro 8 unit 08/09/22 22:33 08/09/22 22:53 Insulin Lispro 100 Unit/Ml 3 Ml Vial SUBCUT 08/09/22 22:34 8 unit ONCE ONE Administration Insulin Human Lispro 12 unit 08/09/22 23:50 08/10/22 00:03 Insulin Lispro 100 Unit/Ml 3 Ml Vial SUBCUT 08/09/22 23:51 12 unit ONCE ONE Administration Morphine Sulfate 4 mg 08/09/22 23:30 08/10/22 00:04 Morphine Sulfate 4 Mg/Ml Cartridge IVPUSH 08/09/22 23:31 4 mg ONCE ONE Administration Protocol Ondansetron HCl 4 mg 08/09/22 23:30 08/10/22 00:03 Ondansetron Hcl 4 Mg/2 Ml Vial IVPUSH 08/09/22 23:31 4 mg ONCE ONE Administration Medical Decision Making Medical Decision Making [facility] Narrative: Patient status mechanical fall head CT and C-spine CT negative for acute noticed to have low-grade temperature source of infection is not clear patient does go for dialysis. Chest x-ray negative COVID flu RSV negative normal lactic acid and CBC count will give a dose of vancomycin pending final culture results. Patient noted to have high blood sugar is diabetic on Lantus and a insulin in the a.m. and sliding scale of insulin during daytime will give him 500 cc of normal saline and insulin according to sliding scale. Lab Data [facility] Lab Attestation statement: I reviewed the patient's lab results. 08/09/22 22:39 08/09/22 22:39 Labs: Lab Results 08/09/22 08/09/22 08/09/22 Range/Units 21:43 22:38 22:39 WBC 2.9 L (4.8-10.8) X10*3/uL RBC 3.19 L (4.60-5.80) X10*6/uL Hgb 9.5 L D (14.0-18.0) g/dl Hct 29.3 L (42.0-52.0) % MCV 91.8 (80.0-98.0) fL MCH 29.8 (27.0-33.0) pg MCHC 32.4 (31.0-36.0) g/dl RDW 15.9 (11.0-16.0) % Plt Count 101 L D (160-400) X10*3/uL MPV 9.4 (9.4-12.4) fL Immature Gran % (Auto) 0.7 H (0.0-0.4) % Neut % (Auto) 66.3 (45-73) % Lymph % (Auto) 16.8 L (20-40) % Glynn % (Auto) 11.6 H (2-11) % Eos % (Auto) 3.5 (0-4) % Baso % (Auto) 1.1 (0-2) % Lymph # (Auto) 0.5 L (1.2-4.9) X10*3/uL Glynn # (Auto) 0.3 (0.1-1.2) X10*3/uL Eos # (Auto) 0.1 (0.0-0.4) X10*3/uL Baso # (Auto) 0.0 (0.0-0.2) X10*3/uL Abs Immat Gran (auto) 0.02 (0.00-0.03) X10*3/uL Absolute Neuts (auto) 1.9 L (2.0-8.3) x10*3/uL Absolute Nucleated RBC 0.000 (0.0-0.012) X10*3/uL Nucleated RBC % (auto) 0.0 (0.0-0.2) /100WBC Sodium (135-145) mmol/L Potassium (3.3-5.1) mmol/L Chloride (96-108) mmol/L Carbon Dioxide (22-29) mmol/L Anion Gap (12-20) BUN (9-16) mg/dL Creatinine (0.5-1.4) mg/dL Estim Creat Clear Calc Estimated GFR POC Glucose 370 H* (60-115) mg/dL Random Glucose (60-115) mg/dL Lactic Acid (0.5-2.0) mmol/L Calcium (8.4-10.2) mg/dL Total Bilirubin (0.0-1.0) mg/dL AST (5-37) U/L ALT (0-40) U/L Alkaline Phosphatase (39-117) U/L Total Protein (6.5-8.0) g/dL Albumin (3.5-5.0) g/dL Influenza Type A (PCR) NEGATIVE (Negative) Influenza Type B (PCR) NEGATIVE (Negative) RSV RNA Qual (PCR) NEGATIVE (Negative) SARS-CoV-2 RNA (RT-PCR) NEGATIVE (Negative) 08/09/22 08/09/22 08/09/22 Range/Units 22:39 22:39 23:47 WBC (4.8-10.8) X10*3/uL RBC (4.60-5.80) X10*6/uL Hgb (14.0-18.0) g/dl Hct (42.0-52.0) % MCV (80.0-98.0) fL MCH (27.0-33.0) pg MCHC (31.0-36.0) g/dl RDW (11.0-16.0) % Plt Count (160-400) X10*3/uL MPV (9.4-12.4) fL Immature Gran % (Auto) (0.0-0.4) % Neut % (Auto) (45-73) % Lymph % (Auto) (20-40) % Glynn % (Auto) (2-11) % Eos % (Auto) (0-4) % Baso % (Auto) (0-2) % Lymph # (Auto) (1.2-4.9) X10*3/uL Glynn # (Auto) (0.1-1.2) X10*3/uL Eos # (Auto) (0.0-0.4) X10*3/uL Baso # (Auto) (0.0-0.2) X10*3/uL Abs Immat Gran (auto) (0.00-0.03) X10*3/uL Absolute Neuts (auto) (2.0-8.3) x10*3/uL Absolute Nucleated RBC (0.0-0.012) X10*3/uL Nucleated RBC % (auto) (0.0-0.2) /100WBC Sodium 126 L (135-145) mmol/L Potassium 4.1 (3.3-5.1) mmol/L Chloride 90 L (96-108) mmol/L Carbon Dioxide 28 (22-29) mmol/L Anion Gap 12 (12-20) BUN 18 H (9-16) mg/dL Creatinine 3.39 H (0.5-1.4) mg/dL Estim Creat Clear Calc 23.9 Estimated GFR 19 POC Glucose 404 H* (60-115) mg/dL Random Glucose 452 H* (60-115) mg/dL Lactic Acid 1.0 (0.5-2.0) mmol/L Calcium 8.8 (8.4-10.2) mg/dL Total Bilirubin 0.5 (0.0-1.0) mg/dL AST 28 (5-37) U/L ALT 13 (0-40) U/L Alkaline Phosphatase 119 H (39-117) U/L Total Protein 7.1 (6.5-8.0) g/dL Albumin 3.8 (3.5-5.0) g/dL Influenza Type A (PCR) (Negative) Influenza Type B (PCR) (Negative) RSV RNA Qual (PCR) (Negative) SARS-CoV-2 RNA (RT-PCR) (Negative) 08/10/22 Range/Units 01:20 WBC (4.8-10.8) X10*3/uL RBC (4.60-5.80) X10*6/uL Hgb (14.0-18.0) g/dl Hct (42.0-52.0) % MCV (80.0-98.0) fL MCH (27.0-33.0) pg MCHC (31.0-36.0) g/dl RDW (11.0-16.0) % Plt Count (160-400) X10*3/uL MPV (9.4-12.4) fL Immature Gran % (Auto) (0.0-0.4) % Neut % (Auto) (45-73) % Lymph % (Auto) (20-40) % Glynn % (Auto) (2-11) % Eos % (Auto) (0-4) % Baso % (Auto) (0-2) % Lymph # (Auto) (1.2-4.9) X10*3/uL Glynn # (Auto) (0.1-1.2) X10*3/uL Eos # (Auto) (0.0-0.4) X10*3/uL Baso # (Auto) (0.0-0.2) X10*3/uL Abs Immat Gran (auto) (0.00-0.03) X10*3/uL Absolute Neuts (auto) (2.0-8.3) x10*3/uL Absolute Nucleated RBC (0.0-0.012) X10*3/uL Nucleated RBC % (auto) (0.0-0.2) /100WBC Sodium (135-145) mmol/L Potassium (3.3-5.1) mmol/L Chloride (96-108) mmol/L Carbon Dioxide (22-29) mmol/L Anion Gap (12-20) BUN (9-16) mg/dL Creatinine (0.5-1.4) mg/dL Estim Creat Clear Calc Estimated GFR POC Glucose 325 H (60-115) mg/dL Random Glucose (60-115) mg/dL Lactic Acid (0.5-2.0) mmol/L Calcium (8.4-10.2) mg/dL Total Bilirubin (0.0-1.0) mg/dL AST (5-37) U/L ALT (0-40) U/L Alkaline Phosphatase (39-117) U/L Total Protein (6.5-8.0) g/dL Albumin (3.5-5.0) g/dL Influenza Type A (PCR) (Negative) Influenza Type B (PCR) (Negative) RSV RNA Qual (PCR) (Negative) SARS-CoV-2 RNA (RT-PCR) (Negative) Independent Interpretation I performed an independent interpretation of an: EKG Interpretation: Number sinus rhythm heart rate 81 beats per minute PACs normal interval normal axis no acute ST T wave changes no acute ischemia Discharge Plan Discharge Clinical Impression: Head injury, Fever Patient Disposition: Xfer SNF Transfer Details: Patient had low-grade fever etiology not very clear workup is negative at this time patient was given 1 g of vancomycin need follow-up with blood cultures. CT scan of the head and C-spine negative for any acute patient able to give the urine sample Instructions: Fever in Adults (ED), Head Injury (ED) Additional Instructions: Report back to ED if recurrence of fever Continue insulin for diabetes Prescriptions: No Action multivitamin Tablet 1 tab PO DAILY atorvastatin 80 mg tablet 1 tab PO DAILY carvedilol 25 mg tablet 1 tab PO BID tamsulosin 0.4 mg capsule 1 cap PO BEDTIME amlodipine 10 mg tablet 1 tab PO QAM calcitriol 0.5 mcg Capsule 1 mcg PO MOWEFR Rx Instructions: administer after dialysis on dialysis days mirtazapine 15 mg tablet 1 tab PO BEDTIME insulin lispro [Humalog U-100 Insulin] 100 unit/mL Solution 1 sliding scale dose SUBCUT USEASDIRECTD Protocol: Insulin Correction Scale Less than or equal to 110 ---- Give (units): 0 111 to 150 Give (units): 0 151 to 200 Give (units): 1 201 to 250 Give (units): 2 251 to 300 Give (units): 2 301 to 350 Give (units): 3 Greater than 350 Give (units): 3 Call MD if Blood Glucose > : 400 losartan 100 mg tablet 100 mg PO BID duloxetine 60 mg capsule,delayed release(DR/EC) 1 cap PO DAILY cholecalciferol (vitamin D3) 1,250 mcg (50,000 unit) Tablet 1,250 mcg PO QMONTH hydralazine 25 mg Tablet 25 mg PO TID 30 Days Qty: 90 0RF Protocol: Hold for SBP< HOLD for SBP < : 90 Interventions: ED Discharge Assessment Last Done: 01/20/23 05:15 Discharge Date/Time: 08/10/22 05:15
--- NOTE | 2022-08-09 22:38 | ECG_ITS ---
Test Reason : TRAUMA Blood Pressure : / mmHG Vent. Rate : 081 BPM Atrial Rate : 081 BPM P-R Int : 152 ms QRS Dur : 098 ms QT Int : 402 ms P-R-T Axes : 081 -28 017 degrees QTc Int : 466 ms Sinus rhythm with Premature atrial complexes Otherwise normal ECG When compared with ECG of 17-JUN-2022 08:53, Premature atrial complexes are now Present Nonspecific T wave abnormality no longer evident in Anterior leads Referred By: Ced Pro Electronically Signed By:CATHY KAPLAN MD
[2022-08-09 22:46] LABS: MANUAL DIFF FLAG NO
[2022-08-09] MEDS: Acetaminophen 325 MG TABLET 650 MG PO (22:52)
[2022-08-09] MEDS: Insulin Lispro 100 UNIT/ML 3 ML VIAL 8 UNIT SUBCUT (22:53)
[2022-08-09 22:57] LABS: Basophils Percent Auto 1.1 % (0-2); Eosinophils Absolute Auto 0.1 X10*3/uL (0.0-0.4); Eosinophils Percent Auto 3.5 % (0-4); Hematocrit 29.3 % (42.0-52.0); Hemoglobin 9.5 g/dl (14.0-18.0); Imm Gran Abs Auto 0.02 X10*3/uL (0.00-0.03); Imm Gran Pct Auto 0.7 % (0.0-0.4); Lymphocytes Absolute Auto 0.5 X10*3/uL (1.2-4.9); Lymphocytes Percent Auto 16.8 % (20-40); Mean Corpuscular HGB Conc 32.4 g/dl (31.0-36.0); Mean Corpuscular Hemoglobin 29.8 pg (27.0-33.0); Mean Corpuscular Volume 91.8 fL (80.0-98.0); Mean Platelet Volume 9.4 fL (9.4-12.4); Monocytes Absolute Auto 0.3 X10*3/uL (0.1-1.2); Monocytes Percent Auto 11.6 % (2-11); Neutrophils Absolute Auto 1.9 x10*3/uL (2.0-8.3); Neutrophils Percent Auto 66.3 % (45-73); Platelet Count 101 X10*3/uL (160-400); Red Blood Count 3.19 X10*6/uL (4.60-5.80); Red Cell Distribution Width 15.9 % (11.0-16.0); White Blood Count 2.9 X10*3/uL (4.8-10.8)
[2022-08-09 23:12] LABS: Alanine Aminotransferase 13 U/L (0-40); Albumin Level 3.8 g/dL (3.5-5.0); Alkaline Phosphatase 119 U/L (39-117); Anion Gap 12 (12-20); Aspartate Amino Transferase 28 U/L (5-37); Bilirubin Total 0.5 mg/dL (0.0-1.0); Blood Urea Nitrogen 18 mg/dL (9-16); Calcium 8.8 mg/dL (8.4-10.2); Carbon Dioxide 28 mmol/L (22-29); Chloride 90 mmol/L (96-108); Creatinine Clr Calc Pharmacy 23.9; Estimated Glomerular Filt Rate 19; Glucose Random 452 mg/dL (60-115); Potassium 4.1 mmol/L (3.3-5.1); Sodium 126 mmol/L (135-145); Total Protein 7.1 g/dL (6.5-8.0)
--- NOTE | 2022-08-09 23:19 | PC.NURSE ---
During the nursing assessment, pt had a high temp, provider was notified. The temperature pro was probably malfunctioning. Re-assess temp pt is 98.8 rectal pro. provider notified.
[2022-08-09 23:26] LABS: Influenza A PCR NEGATIVE (Negative); Influenza B PCR NEGATIVE (Negative); Resp Syncy Virus RNA Qual PCR NEGATIVE (Negative); SARS COV2 PCR INHOUSE NEGATIVE (Negative)
[2022-08-09 23:52] LABS: Glucose, Whole Blood 404 mg/dL (60-115)
[2022-08-10] MEDS: ondansetron HCL 4 MG/2 ML VIAL IVPUSH (00:03)
[2022-08-10] MEDS: Insulin Lispro 100 UNIT/ML 3 ML VIAL 12 UNIT SUBCUT (00:03)
[2022-08-10] MEDS: Morphine Sulfate 4 MG/ML CARTRIDGE IVPUSH (00:04)
[2022-08-10 00:42] VITALS: BP 178/61; PULSE 79; RESP 18; TEMP 37; O2SAT 97
[2022-08-10] MEDS: 0.9 % Sodium Chloride 500 ML 250 ML IVCONT (01:03)
[2022-08-10 01:24] LABS: Glucose, Whole Blood 325 mg/dL (60-115)
--- NOTE | 2022-08-10 02:15 | PC.NURSE ---
Re-assessment: Pt is hypertensive and a -fib on the monitor, provider is aware. Pt is afribile, abx was given as order. Pain meds were given.
[2022-08-10 03:37] VITALS: BP 161/83; PULSE 72; RESP 15; TEMP 36.8; O2SAT 96
== END 2022-08-10 05:15 | disposition skilled nursing facility (03) ==
PROVIDERS: Emergency Provider Internal Medicine
DX: S09.90XA Unspecified injury of head, initial encounter (principal); S00.83XA Contusion of other part of head, initial encounter; R41.3 Other amnesia; I12.0 Hypertensive chronic kidney disease with stage 5 chronic kidney disease or end stage renal disease; E10.22 Type 1 diabetes mellitus with diabetic chronic kidney disease; N18.6 End stage renal disease; R50.9 Fever, unspecified; Z99.2 Dependence on renal dialysis; Z79.4 Long term (current) use of insulin; Z20.822 Contact with and (suspected) exposure to COVID-19; W01.10XA Fall on same level from slipping, tripping and stumbling with subsequent striking against unspecified object, initial encounter; Y93.89 Activity, other specified; Y92.129 Unspecified place in nursing home as the place of occurrence of the external cause; I48.91 Unspecified atrial fibrillation
CPT/HCPCS: 0241U; 70450; 71045; 72125; 80053; 82947; 83605; 85025; 87040; 93005; 96365; 96366; 96375; 99285; J2270; J2405; J3370

== ENCOUNTER 2022-11-20 06:22 | Inpatient (IN) | payer OTHER, SELFPAY ==
[2022-11-20] VITALS (7 sets, daily range): BP systolic 128–187; BP diastolic 70–92; PULSE 56–82; RESP 12–29; TEMP 34.6–37.2; O2SAT 91–98; BMI 22.3; BMI 24.9; BMI 24.7
--- NOTE | ~2022-11-20 | NM_ITS ---
Myocardial perfusion study Indication: NSTEMI Technique: The patient was brought in for a Lexiscan perfusion study on 11/23/2022. Patient performed low-level exercise and was injected 0.4 mg of Lexiscan intravenously. Within a minute of injection, 25 mCi of sestamibi was given intravenously. Images were obtained using the SPECT gamma camera interlaced with the gating device. Images were obtained in supine position. Resting perfusion study was performed on 11/22/2022. Patient was administered 25 mCi of sestamibi intravenously at rest. Images were then obtained in supine position. Images obtained with and without CT attenuation. Total DLP 96 mGy-cm. Images were processed with the software and compared side to side in short axis, horizontal long axis and vertical long axis views. Findings: The stress perfusion study showed non attenuated images show mildly reduced uptake in the inferior as well as the basal lateral wall of the LV myocardium. Remainder of the LV myocardium is normally perfused. Attenuation corrected images show normal uptake of radiotracer in all segments of LV myocardium.. The gated study shows low normal LV systolic function with calculated LVEF of 52%. LV cavity is mildly dilated size. The gated study shows normal systolic wall thickening and contraction of segments. Resting study shows no change in perfusion pattern compared to stress perfusion study. Gating at rest reveals normal systolic wall motion with ejection fraction at greater than 50%. The findings are consistent with no clear reversible defect, oral normal myocardial perfusion. NM/NM torito perf SPECT rest & str Impression: 1. Myocardial perfusion imaging study shows normal myocardial perfusion 2. Gated LVEF is 52% 3. Transient ischemic dilatation not present but LV cavity is dilated EKG is nondiagnostic for ischemia
--- NOTE | ~2022-11-20 | CT_ITS ---
EXAMINATION: CT HEAD WITHOUT CONTRAST CLINICAL INFORMATION: Syncope and fall, rule out intracranial abnormality. COMPARISON: None available. TECHNIQUE: Contiguous axial imaging was performed from the skull base to vertex without intravenous administration of contrast. Coronal and sagittal reformatted images were obtained. This CT examination was performed using dose optimization techniques as appropriate, variously including the following: *Automated exposure control *Adjustment of mA and/or kV according to patient size (this includes techniques or standardized protocols for targeted exams where dose is matched to indication/reason for exam; i.e. extremities or head) *Use of iterative reconstruction technique DLP: 783.69 mGy-cm FINDINGS: There is mild widening of the cortical sulci and associated ventriculomegaly. The lateral ventricles are symmetrical. The third and fourth ventricles are in their normal midline position. The basilar and prepontine cisterns are unremarkable. There is no acute intra or extracerebral abnormality. There is no mass effect or midline shift. Sections through the bony calvarium are unremarkable. The orbits are intact. The paranasal sinuses are clear. The mastoid air cells are clear. Mild debris medially in the left external auditory canal without significant change. CT/CT head/brain wo IV con IMPRESSION: No acute intracranial pathology.
--- NOTE | ~2022-11-20 | CT_ITS ---
EXAMINATION: CT CERVICAL SPINE WITHOUT CONTRAST CLINICAL INFORMATION: Neck pain status syncope/fall. COMPARISON: Cervical spine CT scan dated 08/09/2022. TECHNIQUE: Multiple images of the cervical spine were obtained without the administration of intravenous contrast. Coronal and sagittal reformatted images were obtained. This CT examination was performed using dose optimization techniques as appropriate, variously including the following: *Automated exposure control *Adjustment of mA and/or kV according to patient size (this includes techniques or standardized protocols for targeted exams where dose is matched to indication/reason for exam; i.e. extremities or head) *Use of iterative reconstruction technique DLP: 597.73 mGy-cm FINDINGS: There is normal cervical lordosis and spinal alignment. The vertebral bodies and odontoid processes are intact. Mild to moderate odontoid process articulating degenerative changes are seen. Calcification of the posterior longitudinal ligament is again noted. The facet joints are unremarkable. Spinous processes are intact. Cervical soft tissues are unremarkable. There is no lymphadenopathy. The thyroid gland is unremarkable. Mild to moderate atherosclerosis is seen at the carotid bifurcations bilaterally. Partial visualization of right pleural effusion extending to the right apex. CT/CT cervical spine wo IV con IMPRESSION: 1. No acute cervical spine abnormality. 2. Incidental partial visualization of right pleural effusion. Correlation with PA and lateral views of the chest is recommended.
--- NOTE | ~2022-11-20 | XR_ITS ---
EXAMINATION: XR CHEST CLINICAL INFORMATION: Syncope. COMPARISON: 08/09/[address] scan dated 06/17/2022. TECHNIQUE: 2 views of the chest were obtained. FINDINGS: Mild blunting of the costophrenic sulci are seen, right greater than left in the lateral projection. The lungs otherwise clear. The heart and mediastinal structures are unremarkable. XR/XR chest 2V IMPRESSION: Small bilateral pleural effusions, right greater than left representing interval decrease from the most recent CT scan.
--- NOTE | 2022-11-20 06:54 | PC.NURSE ---
unable to get temp orally and rectally reading LOW. pt placed on bear hugger this rn and turntable worker attempted multiple times for iv. unable to place iv at this time
[2022-11-20 07:13] LABS: Glucose, Whole Blood 143 mg/dL (60-115)
--- NOTE | 2022-11-20 07:37 | PC.NURSE ---
pt alert and able to follow commands. Rectal temp continues to read LO . Attempted with 2 thermometers. Alie fong. aware.
--- NOTE | 2022-11-20 07:40 | ECG_ITS ---
Test Reason : Syncope Blood Pressure : / mmHG Vent. Rate : 060 BPM Atrial Rate : 060 BPM P-R Int : 182 ms QRS Dur : 096 ms QT Int : 510 ms P-R-T Axes : 038 012 197 degrees QTc Int : 510 ms Normal sinus rhythm Minimal voltage criteria for LVH, may be normal variant ( [place] product ) Nonspecific T wave abnormality Prolonged QT Abnormal ECG When compared with ECG of 09-AUG-2022 22:55, Premature atrial complexes are no longer Present Nonspecific T wave abnormality now evident in Lateral leads Referred By: Farheen Lo Electronically Signed By:CATHY KAPLAN MD
--- NOTE | 2022-11-20 07:45 | ED_ITS ---
HPI - General Adult General Chief complaint: General Medical Stated complaint: fall Time Seen by Provider: 11/20/22 07:23 Source: patient and EMS Mode of arrival: EMS Limitations: no limitations History of Present Illness HPI narrative: 62-year-old male insulin-dependent diabetes, ESRD on hemodialysis, patient was found unresponsive on the floor at the intermediate was on witness possible fall, patient emergency department have no recollection of what happened, patient was found by EMS at the scene with low blood sugar 59 was administered oral glucose now it is 125, patient also found to be hypothermic in the emergency department was placed on [employer]ie huggers warming blankets. Superficial abrasion on the face indicating possible head trauma. Patient otherwise is awake and able to give history. Related Data Home Medications Medication Instructions Recorded Confirmed amlodipine 10 mg tablet 1 tab PO QAM 06/17/22 11/20/22 atorvastatin 80 mg tablet 1 tab PO DAILY 06/17/22 11/20/22 calcitriol 0.5 mcg capsule 1 mcg PO MOWEFR 06/17/22 11/20/22 carvedilol 25 mg tablet 1 tab PO BID 06/17/22 11/20/22 cholecalciferol (vitamin D3) 1,250 1,250 mcg PO QMONTH 06/17/22 11/20/22 mcg (50,000 unit) tablet duloxetine 60 mg capsule,delayed 1 cap PO DAILY 06/17/22 11/20/22 release insulin lispro 100 unit/mL 1 sliding scale dose subcut 06/17/22 11/20/22 subcutaneous solution (Humalog USEASDIRECTD U-100 Insulin) losartan 100 mg tablet 100 mg PO BID 06/17/22 11/20/22 mirtazapine 15 mg tablet 1 tab PO BEDTIME 06/17/22 11/20/22 multivitamin 1 tab PO DAILY 06/17/22 11/20/22 tamsulosin 0.4 mg capsule 1 cap PO BEDTIME 06/17/22 11/20/22 acetaminophen 325 mg tablet 650 mg PO Q6H PRN Fever Or Pain 11/20/22 11/20/22 acetaminophen 650 mg rectal 650 mg PA Q6H PRN Fever Or Pain 11/20/22 11/20/22 suppository bisacodyl 10 mg rectal suppository 10 mg PA DAILY PRN Constipation 11/20/22 11/20/22 clonidine 0.3 mg/24 hr weekly 1 patch transdermal Q7D 11/20/22 11/20/22 transdermal patch dextrose 40 % oral gel (Glucose 20 g PO Q15M PRN BG < 60 11/20/22 11/20/22 Gel) docusate sodium 100 mg capsule 100 mg PO BID 11/20/22 11/20/22 (Colace) insulin glargine 100 unit/mL (3 6 unit subcut QPM 11/20/22 11/20/22 mL) subcutaneous pen (Lantus Solostar U-100 Insulin) melatonin 5 mg tablet 10 mg PO BEDTIME PRN Sleep 11/20/22 11/20/22 naloxone 0.4 mg/mL injection 0.4 mg IM Q2M PRN Opioid Reversal 11/20/22 11/20/22 syringe oxycodone 5 mg tablet 5 mg PO Q6H PRN Pain 11/20/22 11/20/22 polyethylene glycol 3350 17 17 g PO DAILY 11/20/22 11/20/22 gram/dose oral powder (Miralax) Previous Rx's Medication Instructions Recorded hydralazine 25 mg tablet 25 mg PO TID 30 days #90 tabs 06/21/22 Allergies Allergy/AdvReac Type Severity Reaction Status Date / Time No Known Allergies Allergy Verified 06/17/22 08:41 Review of Systems Review of Systems: All other systems are reviewed and are negative Constitutional: Reports as per HPI and Reports no additional constitutional complaints Eyes: Reports as per HPI and Reports no additional eye complaints Reports system reviewed and no additional complaints, except as documented Cardiovascular: Reports as per HPI and Reports no additional cardiovascular complaints Respiratory: Reports as per HPI and Reports no additional respiratory complaints Gastrointestinal: Reports as per HPI and Reports no additional gastrointestinal complaints Genitourinary: Reports no additional female genitourinary complaints Musculoskeletal: Reports no additional musculoskeletal complaints Skin/Breast: Reports system reviewed and no additional complaints, except as docu Psychiatric: Reports no additional psychiatric complaints Endocrine: Reports no additional endocrine complaints Hematologic/Lymphatic: Reports no additional hematologic/lymphatic complaints Allergic/Immunologic: Reports no additional allergic/immunologic complaints Reports system reviewed and no additional complaints, except as documented and Reports Abnormal speech present [facility] Past Medical History Medical History Anemia Atrial fibrillation Bacteremia Benign prostate hyperplasia Cellulitis Constipation COPD (chronic obstructive pulmonary disease) Dementia Diabetes mellitus type 1 Dysphagia End stage renal disease on dialysis ESRD (end stage renal disease) on dialysis Gastrointestinal hemorrhage Hepatitis C Hyperkalemia Hyperlipemia Hypernatremia Hyperparathyroidism Hypertension Hypertensive cardiopathy Major depressive disorder Nicotine dependence Osteoarthritis Peripheral vascular disease Sepsis Septic shock Streptococcal sepsis, unspecified Systolic CHF Urine retention Vitamin D deficiency Social History Social History Household Members: Other Household Members Other:: [facility] Housing: Other Unable to assess alcohol history related to: Unable to respond Patient Tobacco Use Status: Tobacco use Unknown Use of substances other than those prescribed or required for medical reasons: No Advance Directives: Yes Advance Directives on File: Yes Advance Directives Date on File: 06/22/22 Physical Exam ED Vital Signs: Vital Signs - 24 hr 11/20/22 06:27 11/20/22 07:34 11/20/22 09:29 Temperature 94.2 F L Pulse Rate 82 61 64 Respiratory Rate 18 13 16 Blood Pressure 128/87 151/72 H 178/92 H Pulse Oximetry 98 94 94 Oxygen Delivery Method Room Air Room Air Room Air 11/20/22 11:32 11/20/22 13:14 Temperature 99.0 F 98.7 F Pulse Rate 78 80 Respiratory Rate 21 H 29 H Blood Pressure 152/90 H 184/85 H Pulse Oximetry 93 98 Oxygen Delivery Method Room Air Room Air BMI result Body Mass Index 24.9 Vital signs have been reviewed as appeared to be correct. Blood pressure normal. Heart rate normal. Respiration rate normal. Temperature normal. Oxygen saturation normal. Appearance: Alert. Oriented X3. No acute distress. Head: Normal external exam. Normocephalic. Atraumatic. No Ramos signs noted. No raccoon eyes noted Eyes: PERRLA. EOMI. Conjunctiva and sclera normal. Eyelids normal. ENT: TM's Normal. Pharynx normal. Uvula midline. Moist mucous membranes. No trismus noted. No drooling noted. No muffled voice noted. Neck: Normal inspection. Neck supple. FROM. No adenopathy. Thyroid Normal. No meningeal signs. No neck mass noted. CVS: Normal heart rate and rhythm. Heart sound normal. No murmurs noted. Pulses normal throughout. Respiratory: No respiratory distress. Painless inspiration. Breath sounds normal. No wheezes/rales/rhonchi noted. Chest nontender. No accessory muscle usage noted or decreased air movement noted. Abdomen: Soft and nontender. Bowel sounds normal in all 4 quadrants. No distention noted. No organomegaly noted. No visible injury noted. Back: No CVA tenderness. Full range of motion noted. Skin: Skin warm and dry. Normal skin color. Normal skin turgor. No rashes/lesions/lacerations noted. Extremities: No lower extremity edema. Extremities exhibit normal range of motion. Extremities nontender. Neuro: Oriented X 3. Cranial nerve exam: II-XII are grossly intact No motor deficit. No sensory deficit. Reflexes normal. Course Course Course Narrative: A 62-year-old male with end-stage renal disease, on HD came in after had sy ncopal episode, no CP/SOB found to have elevated troponinx2 with no dynamic ischemic change on the EKG. The case was discussed with Dr. Thomas who advised to start the patient on heparin drip and admission for serial troponin. Medications Administered Discontinued Medications Generic Name Dose Route Start Last Admin Trade Name Freq PRN Reason Stop Dose Admin Ceftriaxone Sodium 1 gm/ 50 mls @ 100 mls/hr 11/20/22 07:42 11/20/22 09:30 Sodium Chloride IV 11/20/22 08:11 Infused ONCE ONE Infusion Medical Decision Making Differential Diagnosis Differential Diagnoses: The differential diagnosis associated with the presentation includes (Syncope, dysrhythmia, ACS, electrolyte disturbance, volume overload, severe anemia.) Admission/Observation Consideration of admission/observation: Escalation of care including admission/observation considered Consult Healthcare Provider Management of the patient was discussed with: Hospitalist Lab Data [facility] Lab Attestation statement: I reviewed the patient's lab results. 11/20/22 08:28 11/20/22 08:28 Labs: Lab Results 11/20/22 11/20/22 11/20/22 Range/Units 06:31 08:28 08:28 WBC 5.9 (4.8-10.8) X10*3/uL RBC 3.38 L (4.60-5.80) X10*6/uL Hgb 10.5 L (14.0-18.0) g/dl Hct 31.7 L (42.0-52.0) % MCV 93.8 (80.0-98.0) fL MCH 31.1 (27.0-33.0) pg MCHC 33.1 (31.0-36.0) g/dl RDW 14.9 (11.0-16.0) % Plt Count 133 L D (160-400) X10*3/uL MPV 10.5 (9.4-12.4) fL Immature Gran % (Auto) 0.5 H (0.0-0.4) % Neut % (Auto) 84.9 H (45-73) % Lymph % (Auto) 8.8 L (20-40) % [place] % (Auto) 3.4 (2-11) % Eos % (Auto) 1.7 (0-4) % Baso % (Auto) 0.7 (0-2) % Lymph # (Auto) 0.5 L (1.2-4.9) X10*3/uL [place] # (Auto) 0.2 (0.1-1.2) X10*3/uL Eos # (Auto) 0.1 (0.0-0.4) X10*3/uL Baso # (Auto) 0.0 (0.0-0.2) X10*3/uL Abs Immat Gran (auto) 0.03 (0.00-0.03) X10*3/uL Absolute Neuts (auto) 5.0 (2.0-8.3) x10*3/uL Absolute Nucleated RBC 0.000 (0.0-0.012) X10*3/uL Nucleated RBC % (auto) 0.0 (0.0-0.2) /100WBC PT (10.0-13.1) SEC INR (0.9-1.1) APTT (26.0-36.4) SEC Sodium 129 L (135-145) mmol/L Potassium 4.2 (3.3-5.1) mmol/L Chloride 85 L (96-108) mmol/L Carbon Dioxide 32 H (22-29) mmol/L Anion Gap 16 (12-20) BUN 40 H (9-16) mg/dL Creatinine 6.78 H* (0.5-1.4) mg/dL Estim Creat Clear Calc 11.8 Estimated GFR 8 POC Glucose 143 H (60-115) mg/dL Random Glucose 258 H (60-115) mg/dL Lactic Acid (0.5-2.0) mmol/L Calcium 9.3 (8.4-10.2) mg/dL Total Bilirubin 0.8 (0.0-1.0) mg/dL Direct Bilirubin 0.3 (0.0-0.5) mg/dL AST 20 (5-37) U/L ALT < 5 (0-40) U/L Alkaline Phosphatase 74 (39-117) U/L Total Creatine Kinase (38-174) U/L Troponin I High Sens (<3.5-35.0) ng/L B-Natriuretic Peptide (<100) pg/mL Total Protein 6.8 (6.5-8.0) g/dL Albumin 3.6 (3.5-5.0) g/dL Lipase 12 (8-78) U/L Ethyl Alcohol mg/dL COVID-19 ([facility]) (Negative) COVID-19 Clin Com Influenza Type A (PCR) (Negative) Influenza Type B (PCR) (Negative) RSV RNA Qual (PCR) (Negative) SARS-CoV-2 RNA (RT-PCR) (Negative) 11/20/22 11/20/22 11/20/22 Range/Units 08:28 08:28 08:28 WBC (4.8-10.8) X10*3/uL RBC (4.60-5.80) X10*6/uL Hgb (14.0-18.0) g/dl Hct (42.0-52.0) % MCV (80.0-98.0) fL MCH (27.0-33.0) pg MCHC (31.0-36.0) g/dl RDW (11.0-16.0) % Plt Count (160-400) X10*3/uL MPV (9.4-12.4) fL Immature Gran % (Auto) (0.0-0.4) % Neut % (Auto) (45-73) % Lymph % (Auto) (20-40) % [place] % (Auto) (2-11) % Eos % (Auto) (0-4) % Baso % (Auto) (0-2) % Lymph # (Auto) (1.2-4.9) X10*3/uL [place] # (Auto) (0.1-1.2) X10*3/uL Eos # (Auto) (0.0-0.4) X10*3/uL Baso # (Auto) (0.0-0.2) X10*3/uL Abs Immat Gran (auto) (0.00-0.03) X10*3/uL Absolute Neuts (auto) (2.0-8.3) x10*3/uL Absolute Nucleated RBC (0.0-0.012) X10*3/uL Nucleated RBC % (auto) (0.0-0.2) /100WBC PT 12.6 (10.0-13.1) SEC INR 1.1 (0.9-1.1) APTT 37.6 H (26.0-36.4) SEC Sodium (135-145) mmol/L Potassium (3.3-5.1) mmol/L Chloride (96-108) mmol/L Carbon Dioxide (22-29) mmol/L Anion Gap (12-20) BUN (9-16) mg/dL Creatinine (0.5-1.4) mg/dL Estim Creat Clear Calc Estimated GFR POC Glucose (60-115) mg/dL Random Glucose (60-115) mg/dL Lactic Acid (0.5-2.0) mmol/L Calcium (8.4-10.2) mg/dL Total Bilirubin (0.0-1.0) mg/dL Direct Bilirubin (0.0-0.5) mg/dL AST (5-37) U/L ALT (0-40) U/L Alkaline Phosphatase (39-117) U/L Total Creatine Kinase (38-174) U/L Troponin I High Sens 1611.4 H* D (<3.5-35.0) ng/L B-Natriuretic Peptide 2704 H (<100) pg/mL Total Protein (6.5-8.0) g/dL Albumin (3.5-5.0) g/dL Lipase (8-78) U/L Ethyl Alcohol mg/dL COVID-19 ([facility]) (Negative) COVID-19 Clin Com Influenza Type A (PCR) (Negative) Influenza Type B (PCR) (Negative) RSV RNA Qual (PCR) (Negative) SARS-CoV-2 RNA (RT-PCR) (Negative) 11/20/22 11/20/22 11/20/22 Range/Units 08:28 08:28 08:28 WBC (4.8-10.8) X10*3/uL RBC (4.60-5.80) X10*6/uL Hgb (14.0-18.0) g/dl Hct (42.0-52.0) % MCV (80.0-98.0) fL MCH (27.0-33.0) pg MCHC (31.0-36.0) g/dl RDW (11.0-16.0) % Plt Count (160-400) X10*3/uL MPV (9.4-12.4) fL Immature Gran % (Auto) (0.0-0.4) % Neut % (Auto) (45-73) % Lymph % (Auto) (20-40) % [place] % (Auto) (2-11) % Eos % (Auto) (0-4) % Baso % (Auto) (0-2) % Lymph # (Auto) (1.2-4.9) X10*3/uL [place] # (Auto) (0.1-1.2) X10*3/uL Eos # (Auto) (0.0-0.4) X10*3/uL Baso # (Auto) (0.0-0.2) X10*3/uL Abs Immat Gran (auto) (0.00-0.03) X10*3/uL Absolute Neuts (auto) (2.0-8.3) x10*3/uL Absolute Nucleated RBC (0.0-0.012) X10*3/uL Nucleated RBC % (auto) (0.0-0.2) /100WBC PT (10.0-13.1) SEC INR (0.9-1.1) APTT (26.0-36.4) SEC Sodium (135-145) mmol/L Potassium (3.3-5.1) mmol/L Chloride (96-108) mmol/L Carbon Dioxide (22-29) mmol/L Anion Gap (12-20) BUN (9-16) mg/dL Creatinine (0.5-1.4) mg/dL Estim Creat Clear Calc Estimated GFR POC Glucose (60-115) mg/dL Random Glucose (60-115) mg/dL Lactic Acid 0.7 (0.5-2.0) mmol/L Calcium (8.4-10.2) mg/dL Total Bilirubin (0.0-1.0) mg/dL Direct Bilirubin (0.0-0.5) mg/dL AST (5-37) U/L ALT (0-40) U/L Alkaline Phosphatase (39-117) U/L Total Creatine Kinase (38-174) U/L Troponin I High Sens (<3.5-35.0) ng/L B-Natriuretic Peptide (<100) pg/mL Total Protein (6.5-8.0) g/dL Albumin (3.5-5.0) g/dL Lipase (8-78) U/L Ethyl Alcohol < 10 mg/dL COVID-19 ([facility]) (Negative) COVID-19 Clin Com Influenza Type A (PCR) NEGATIVE (Negative) Influenza Type B (PCR) NEGATIVE (Negative) RSV RNA Qual (PCR) NEGATIVE (Negative) SARS-CoV-2 RNA (RT-PCR) NEGATIVE (Negative) 11/20/22 11/20/22 11/20/22 Range/Units 08:28 09:31 11:57 WBC (4.8-10.8) X10*3/uL RBC (4.60-5.80) X10*6/uL Hgb (14.0-18.0) g/dl Hct (42.0-52.0) % MCV (80.0-98.0) fL MCH (27.0-33.0) pg MCHC (31.0-36.0) g/dl RDW (11.0-16.0) % Plt Count (160-400) X10*3/uL MPV (9.4-12.4) fL Immature Gran % (Auto) (0.0-0.4) % Neut % (Auto) (45-73) % Lymph % (Auto) (20-40) % [place] % (Auto) (2-11) % Eos % (Auto) (0-4) % Baso % (Auto) (0-2) % Lymph # (Auto) (1.2-4.9) X10*3/uL [place] # (Auto) (0.1-1.2) X10*3/uL Eos # (Auto) (0.0-0.4) X10*3/uL Baso # (Auto) (0.0-0.2) X10*3/uL Abs Immat Gran (auto) (0.00-0.03) X10*3/uL Absolute Neuts (auto) (2.0-8.3) x10*3/uL Absolute Nucleated RBC (0.0-0.012) X10*3/uL Nucleated RBC % (auto) (0.0-0.2) /100WBC PT (10.0-13.1) SEC INR (0.9-1.1) APTT (26.0-36.4) SEC Sodium (135-145) mmol/L Potassium (3.3-5.1) mmol/L Chloride (96-108) mmol/L Carbon Dioxide (22-29) mmol/L Anion Gap (12-20) BUN (9-16) mg/dL Creatinine (0.5-1.4) mg/dL Estim Creat Clear Calc Estimated GFR POC Glucose (60-115) mg/dL Random Glucose (60-115) mg/dL Lactic Acid (0.5-2.0) mmol/L Calcium (8.4-10.2) mg/dL Total Bilirubin (0.0-1.0) mg/dL Direct Bilirubin (0.0-0.5) mg/dL AST (5-37) U/L ALT (0-40) U/L Alkaline Phosphatase (39-117) U/L Total Creatine Kinase 114 (38-174) U/L Troponin I High Sens 2019.5 H* (<3.5-35.0) ng/L B-Natriuretic Peptide (<100) pg/mL Total Protein (6.5-8.0) g/dL Albumin (3.5-5.0) g/dL Lipase (8-78) U/L Ethyl Alcohol mg/dL COVID-19 ([facility]) Negative (Negative) COVID-19 Clin Com See Note Influenza Type A (PCR) (Negative) Influenza Type B (PCR) (Negative) RSV RNA Qual (PCR) (Negative) SARS-CoV-2 RNA (RT-PCR) (Negative) Independent Interpretation I performed an independent interpretation of an: EKG (Normal sinus rhythm, LVH, normal intervals, no ST-T changes.), Plain X-Ray (Small bilateral pleural effusions, right greater than left representing interval decrease from the most recent CT scan.) and CT Scan (Head/C-spine CT: No acute pathology.) Radiology Impression Discussion of test interpretation with radiology: I have reviewed the radiologist's reading. Chronic Conditions Patient?s care impacted by: Hypertension Critical Care Time Critical Care Time Critical Care Time: Yes Total Critical Care Time: 60 Attestation: I spent 60 minutes providing critical care service to the patient, this including time spent at the bedside to evaluate the patient, reassess the patient, monitoring vital signs, review labs, and radiographic studies, counseling the patient/family, discussing the case with consultants, disposition the patient. Discharge Plan Discharge Clinical Impression: Non-ST elevated myocardial infarction (non-STEMI), Syncope and collapse Patient Disposition: Admitted As Inpatient
[2022-11-20 08:35] LABS: MANUAL DIFF FLAG NO
[2022-11-20 08:39] LABS: Basophils Percent Auto 0.7 % (0-2); Eosinophils Absolute Auto 0.1 X10*3/uL (0.0-0.4); Eosinophils Percent Auto 1.7 % (0-4); Hematocrit 31.7 % (42.0-52.0); Hemoglobin 10.5 g/dl (14.0-18.0); Imm Gran Abs Auto 0.03 X10*3/uL (0.00-0.03); Imm Gran Pct Auto 0.5 % (0.0-0.4); Lymphocytes Absolute Auto 0.5 X10*3/uL (1.2-4.9); Lymphocytes Percent Auto 8.8 % (20-40); Mean Corpuscular HGB Conc 33.1 g/dl (31.0-36.0); Mean Corpuscular Hemoglobin 31.1 pg (27.0-33.0); Mean Corpuscular Volume 93.8 fL (80.0-98.0); Mean Platelet Volume 10.5 fL (9.4-12.4); Monocytes Absolute Auto 0.2 X10*3/uL (0.1-1.2); Monocytes Percent Auto 3.4 % (2-11); Neutrophils Percent Auto 84.9 % (45-73); Platelet Count 133 X10*3/uL (160-400); Red Blood Count 3.38 X10*6/uL (4.60-5.80); Red Cell Distribution Width 14.9 % (11.0-16.0); White Blood Count 5.9 X10*3/uL (4.8-10.8)
[2022-11-20] MEDS: cefTRIAXone sodium 1 GM in 0.9 % Sodium Chloride 50 ML IV (08:40)
[2022-11-20 08:42] LABS: INTERNATIONAL NORM RATIO 1.1 (0.9-1.1); Prothrombin Time 12.6 SEC (10.0-13.1)
--- NOTE | 2022-11-20 08:43 | PC.NURSE ---
PA gained IV access via US. Labs and blood cultures drawn and sent to lab. EKG done and ABX started after BC draw. will cont to bianca
[2022-11-20 08:45] LABS: Partial Thromboplastin Time 37.6 SEC (26.0-36.4)
[2022-11-20 08:52] LABS: Lactic Acid 0.7 mmol/L (0.5-2.0)
[2022-11-20 08:54] LABS: Ethanol < 10 mg/dL
--- NOTE | 2022-11-20 08:59 | PHA.MEDREC ---
Pharmacy Consult ? Medication Reconciliation Medication list Obtain from [facility] has completed the medication reconciliation.
[2022-11-20 09:01] LABS: B Type Natriuretic Peptide 2704 pg/mL (<100)
[2022-11-20 09:06] LABS: Alanine Aminotransferase < 5 U/L (0-40); Albumin Level 3.6 g/dL (3.5-5.0); Alkaline Phosphatase 74 U/L (39-117); Anion Gap 16 (12-20); Aspartate Amino Transferase 20 U/L (5-37); Bilirubin Direct 0.3 mg/dL (0.0-0.5); Bilirubin Total 0.8 mg/dL (0.0-1.0); Blood Urea Nitrogen 40 mg/dL (9-16); Calcium 9.3 mg/dL (8.4-10.2); Carbon Dioxide 32 mmol/L (22-29); Chloride 85 mmol/L (96-108); Creatinine Clr Calc Pharmacy 11.8; Estimated Glomerular Filt Rate 8; Glucose Random 258 mg/dL (60-115); Lipase 12 U/L (8-78); Potassium 4.2 mmol/L (3.3-5.1); Sodium 129 mmol/L (135-145); Total Protein 6.8 g/dL (6.5-8.0)
[2022-11-20 09:14] LABS: Troponin-I High Sensitivity 1611.4 ng/L (<3.5-35.0)
[2022-11-20 09:15] LABS: Influenza A PCR NEGATIVE (Negative); Influenza B PCR NEGATIVE (Negative); Resp Syncy Virus RNA Qual PCR NEGATIVE (Negative); SARS COV2 PCR INHOUSE NEGATIVE (Negative)
[2022-11-20 09:59] LABS: COVID-19 Test Negative (Negative); IDNOW Serial# 55D5AD1C
[2022-11-20 12:42] LABS: Troponin-I High Sensitivity 2019.5 ng/L (<3.5-35.0)
[2022-11-20 13:38] LABS: Hematocrit 29.8 % (42.0-52.0); Hemoglobin 10.1 g/dl (14.0-18.0); Mean Corpuscular HGB Conc 33.9 g/dl (31.0-36.0); Mean Corpuscular Volume 91.4 fL (80.0-98.0); Mean Platelet Volume 9.1 fL (9.4-12.4); Platelet Count 122 X10*3/uL (160-400); Red Blood Count 3.26 X10*6/uL (4.60-5.80); White Blood Count 4.2 X10*3/uL (4.8-10.8)
--- NOTE | 2022-11-20 13:38 | P.HPHOSP_ITS ---
History of Present Illness Date of Service: 11/20/22 Chief Complaint: found down, syncope 62 year old male with from SNF with with multiple chronic medical issues as listed below and including ESRD HD TuThSat, DM, HTN, dementia. He was brouht to ED to be evaluated for an unwintessed syncopal episode. He was reportedly found unresponsive on the floor with no apparent injury. He is presently alert but is not able to elaborate on what happened. ED work up CT head No acute pathology, cervical spine CT showed no acute fracture. Checks x-ray showed a small bilateral pleural effusion. Lab is noted for troponin I of a 1600 and has gone up to 2000. He is not reporting any chest pain or shortness of breath. His BNP is 2700. He is due for dialysis today. EKG showed nonspecific ST T wave changes. ED physician has discussed the case with the toxicology teacher and advised to start heparin. also the patient was noted to have a temperature of 94 degrees and that was warmed and temp is now 98, no signs or symptoms of infection at this time. Review of Systems Review of Systems: Yes Unobtainable due to mental status [facility] Medical History Anemia Atrial fibrillation Bacteremia Benign prostate hyperplasia Cellulitis Constipation COPD (chronic obstructive pulmonary disease) Dementia Diabetes mellitus type 1 Dysphagia End stage renal disease on dialysis ESRD (end stage renal disease) on dialysis Gastrointestinal hemorrhage Hepatitis C Hyperkalemia Hyperlipemia Hypernatremia Hyperparathyroidism Hypertension Hypertensive cardiopathy Major depressive disorder Nicotine dependence Osteoarthritis Peripheral vascular disease Sepsis Septic shock Streptococcal sepsis, unspecified Systolic CHF Urine retention Vitamin D deficiency Social History Household Members: Other Household Members Other:: intermediate Housing: Skilled Nursing Do you presently have visiting nurse or other home services: Yes Unable to assess alcohol history related to: Unable to respond Patient Tobacco Use Status: Current everyday Tobacco user Tobacco use type: Cigarette Smoked in Last 30 Days: Yes Patient Interested in Nicotine Replacement: Yes Patient Given Instructions on How to Stop Smoking: Yes Date Education Initiated: 11/20/22 Second Hand Smoke Exposure: No Use of substances other than those prescribed or required for medical reasons: No Currently Displaying Signs/Symptoms of Drug Intoxication Withdrawal: No Any prior treatment program specific to substance use: No Have you been hit, kicked, punched, or otherwise hurt by someone within the past year? If so, by whom?: No Do you feel safe in your current relationship?: No Current Relationship Is there a partner from a previous relationship who is making you feel unsafe now?: No Are you made to feel afraid or neglected: No Advance Directives: Yes Advance Directives on File: Yes Advance Directives Date on File: 06/22/22 Do you have thoughts of harming others: None Do you have a plan to hurt others: No Plan Recently lost weight without trying: No Eating poorly because of decreased appetite: No Nutrition Risks: No Nutritional Risk Poor oral hygiene: No Meds Allergies Allergy/AdvReac Type Severity Reaction Status Date / Time No Known Allergies Allergy Verified 06/17/22 08:41 Active Medications: Current Medications Acetaminophen (Acetaminophen 325 Mg Tablet) 650 mg PO Q6H PRN PRN Reason: Fever Or Pain Acetaminophen (Acetaminophen Supp 650 Mg Supp.Rect) 650 mg OK Q6H PRN PRN Reason: Fever Or Pain Amlodipine Besylate (Amlodipine Besylate 10 Mg Tablet) 10 mg PO QAM ESTELA; Protocol Atorvastatin Calcium (Atorvastatin Calcium 80 Mg Tablet) 80 mg PO DAILY ESTELA Bisacodyl (Bisacodyl 10 Mg Supp.Rect) 10 mg OK DAILY PRN PRN Reason: Constipation Carvedilol (Carvedilol 25 Mg Tablet) 25 mg PO BID ESTELA; Protocol Clonidine (Clonidine 0.3 Mg Patch.Tdwk) mg TRANSDERMA Q7D ESTELA; Protocol Docusate Sodium (Docusate Sodium 100 Mg Capsule) 100 mg PO BID ESTELA Duloxetine HCl (Duloxetine Hcl 60 Mg Capsule.Dr) 60 mg PO DAILY [facility] Glucose (Glucose Gel 15 Gm Gel..Gram.) 20 gm PO Q15M PRN PRN Reason: BG < 60 Heparin Sodium (Porcine) (Heparin Sodium,Porcine 5,000 Unit/Ml Vial) 3,200 unit 40 unit/kg (3200 unit) IVPUSH PROTOCOL BOLUS PRN; Protocol PRN Reason: 40 unit/kg - Heparin Protocol Heparin Sodium (Porcine) (Heparin Sodium,Porcine 5,000 Unit/Ml Vial) 6,500 unit 80 unit/kg (6500 unit) IVPUSH PROTOCOL BOLUS PRN; Protocol PRN Reason: 80 unit/kg - Heparin Protocol Hydralazine HCl (Hydralazine Hcl 25 Mg Tablet) 25 mg PO TID ESTELA; Protocol Heparin Sodium/Sodium Chloride (Heparin Sodium,Porcine/1/2ns) 25,000 unit in 250 mls @ 0 mls/hr IVCONT .Q0M [facility]; Protocol Insulin Glargine (Insulin Glargine,Hum.Rec.Anlog 100 Unit/Ml 10 Ml Vial) 6 unit SUBCUT QPM [facility] Insulin Human Lispro (Insulin Lispro 100 Unit/Ml 3 Ml Vial) unit SUBCUT USEASDIRECTD [facility]; Protocol Losartan Potassium (Losartan Potassium 50 Mg Tablet) 100 mg PO BID [facility]; Protocol Mirtazapine (Mirtazapine 15 Mg Tablet) 15 mg PO BEDTIME [facility] Multivitamins/Vitamin C (Multivitamin Tablet) 1 tab PO DAILY [facility] Non-Formulary Medication (Calcitriol) 1 mcg PO MOWEFR [facility] Non-Formulary Medication (Cholecalciferol (Vitamin D3)) 1,250 mcg PO QMONTH [facility] Non-Formulary Medication (Melatonin) 10 mg PO BEDTIME PRN PRN Reason: Sleep Non-Formulary Medication (Naloxone) 0.4 mg IM Q2M PRN PRN Reason: Opioid Reversal Pharmacy Consult (Consult Rx Perform Med Rec) 1 each MISCELLANE ONCE PRN PRN Reason: Consult order Polyethylene Glycol (Polyethylene Glycol 3350 17 Gm Powd.Pack) 17 gm PO DAILY [facility] Sodium Chloride (0.9 % Sodium Chloride Flush 3 Ml Syringe) 3 ml IVFLUSH QSHIFT [facility] Tamsulosin HCl (Tamsulosin Hcl 0.4 Mg Capsule) 0.4 mg PO BEDTIME [facility] Home Medications Medication Instructions Recorded Confirmed Last Taken Type amlodipine 10 mg tablet 1 tab PO QAM 06/17/22 11/20/22 06/16/22 History atorvastatin 80 mg tablet 1 tab PO DAILY 06/17/22 11/20/22 06/16/22 History calcitriol 0.5 mcg capsule 1 mcg PO MOWEFR 06/17/22 11/20/22 06/15/22 History carvedilol 25 mg tablet 1 tab PO BID 06/17/22 11/20/22 06/16/22 History cholecalciferol (vitamin D3) 1,250 1,250 mcg PO QMONTH 06/17/22 11/20/22 11/01/22 History mcg (50,000 unit) tablet duloxetine 60 mg capsule,delayed 1 cap PO DAILY 06/17/22 11/20/22 06/16/22 History release insulin lispro 100 unit/mL 1 sliding scale dose subcut 06/17/22 11/20/22 06/16/22 History subcutaneous solution (Humalog USEASDIRECTD U-100 Insulin) losartan 100 mg tablet 100 mg PO BID 06/17/22 11/20/22 06/16/22 History mirtazapine 15 mg tablet 1 tab PO BEDTIME 06/17/22 11/20/22 06/16/22 History multivitamin 1 tab PO DAILY 06/17/22 11/20/22 06/16/22 History tamsulosin 0.4 mg capsule 1 cap PO BEDTIME 06/17/22 11/20/22 06/16/22 History acetaminophen 325 mg tablet 650 mg PO Q6H PRN Fever Or Pain 11/20/22 11/20/22 Unknown History acetaminophen 650 mg rectal 650 mg OK Q6H PRN Fever Or Pain 11/20/22 11/20/22 Unknown History suppository bisacodyl 10 mg rectal suppository 10 mg OK DAILY PRN Constipation 11/20/22 11/20/22 Unknown History clonidine 0.3 mg/24 hr weekly 1 patch transdermal Q7D 11/20/22 11/20/22 Unknown History transdermal patch dextrose 40 % oral gel (Glucose 20 g PO Q15M PRN BG < 60 11/20/22 11/20/22 Unknown History Gel) docusate sodium 100 mg capsule 100 mg PO BID 11/20/22 11/20/22 Unknown History (Colace) insulin glargine 100 unit/mL (3 6 unit subcut QPM 11/20/22 11/20/22 Unknown History mL) subcutaneous pen (Lantus Solostar U-100 Insulin) melatonin 5 mg tablet 10 mg PO BEDTIME PRN Sleep 11/20/22 11/20/22 Unknown History naloxone 0.4 mg/mL injection 0.4 mg IM Q2M PRN Opioid Reversal 11/20/22 11/20/22 Unknown History syringe oxycodone 5 mg tablet 5 mg PO Q6H PRN Pain 11/20/22 11/20/22 Unknown History polyethylene glycol 3350 17 17 g PO DAILY 11/20/22 11/20/22 Unknown History gram/dose oral powder (Miralax) Physical Exam Vital Signs and Narrative: Vital Signs: Last Vital Signs Temp 98.7 F 11/20/22 13:14 Pulse 80 11/20/22 13:14 Resp 29 H 11/20/22 13:14 BP 184/85 H 11/20/22 13:14 Pulse Ox 98 11/20/22 13:14 O2 Del Method Room Air 11/20/22 13:14 BMI result Body Mass Index 24.9 Const: Other: Constitutional: Alert, in no distress, oriented to self, place Mental Status: Oriented to person, place and time. Eyes: Pupils are equal, round and reactive to light. Ear, Nose and Throat: Oropharynx clear, mucous membranes moist. Respiratory: Clear to auscultation. No wheezing, rales or rhonchi. Cardiovascular: S1 S2 regular. No murmurs, rubs or gallops. Gastrointestinal: Abdomen soft, non-tender, non-distended. Normal bowel sounds.? Neurologic: Cranial nerves II-XII grossly intact. No focal neurological defic its. Moves all extremities spontaneously.? Skin: No rashes or lesions.? Musculoskeletal: No cyanosis or clubbing. Psychiatric: Normal mood and affect? Results Labs 11/20/22 08:28 11/20/22 08:28 Labs: Laboratory Results - last 24 hr 11/20/22 11/20/22 11/20/22 06:31 08:28 08:28 MCV 93.8 MCH 31.1 MCHC 33.1 RDW 14.9 Plt Count 133 L D MPV 10.5 Immature Gran % (Auto) 0.5 H Neut % (Auto) 84.9 H Lymph % (Auto) 8.8 L [place] % (Auto) 3.4 Eos % (Auto) 1.7 Baso % (Auto) 0.7 Lymph # (Auto) 0.5 L [place] # (Auto) 0.2 Eos # (Auto) 0.1 Baso # (Auto) 0.0 Abs Immat Gran (auto) 0.03 Absolute Neuts (auto) 5.0 Absolute Nucleated RBC 0.000 Nucleated RBC % (auto) 0.0 PT INR APTT Anion Gap 16 Estim Creat Clear Calc 11.8 Estimated GFR 8 POC Glucose 143 H Random Glucose 258 H Lactic Acid Calcium 9.3 Total Bilirubin 0.8 Direct Bilirubin 0.3 AST 20 ALT < 5 Alkaline Phosphatase 74 Total Creatine Kinase Troponin I High Sens B-Natriuretic Peptide Total Protein 6.8 Albumin 3.6 Lipase 12 Ethyl Alcohol COVID-19 ([facility]) COVID-19 Clin Com Influenza Type A (PCR) Influenza Type B (PCR) RSV RNA Qual (PCR) SARS-CoV-2 RNA (RT-PCR) 11/20/22 11/20/22 11/20/22 08:28 08:28 08:28 MCV MCH MCHC RDW Plt Count MPV Immature Gran % (Auto) Neut % (Auto) Lymph % (Auto) [place] % (Auto) Eos % (Auto) Baso % (Auto) Lymph # (Auto) [place] # (Auto) Eos # (Auto) Baso # (Auto) Abs Immat Gran (auto) Absolute Neuts (auto) Absolute Nucleated RBC Nucleated RBC % (auto) PT 12.6 INR 1.1 APTT 37.6 H Anion Gap Estim Creat Clear Calc Estimated GFR POC Glucose Random Glucose Lactic Acid Calcium Total Bilirubin Direct Bilirubin AST ALT Alkaline Phosphatase Total Creatine Kinase Troponin I High Sens 1611.4 H* D B-Natriuretic Peptide 2704 H Total Protein Albumin Lipase Ethyl Alcohol COVID-19 ([facility]) COVID-19 Clin Com Influenza Type A (PCR) Influenza Type B (PCR) RSV RNA Qual (PCR) SARS-CoV-2 RNA (RT-PCR) 11/20/22 11/20/22 11/20/22 08:28 08:28 08:28 MCV MCH MCHC RDW Plt Count MPV Immature Gran % (Auto) Neut % (Auto) Lymph % (Auto) [place] % (Auto) Eos % (Auto) Baso % (Auto) Lymph # (Auto) [place] # (Auto) Eos # (Auto) Baso # (Auto) Abs Immat Gran (auto) Absolute Neuts (auto) Absolute Nucleated RBC Nucleated RBC % (auto) PT INR APTT Anion Gap Estim Creat Clear Calc Estimated GFR POC Glucose Random Glucose Lactic Acid 0.7 Calcium Total Bilirubin Direct Bilirubin AST ALT Alkaline Phosphatase Total Creatine Kinase Troponin I High Sens B-Natriuretic Peptide Total Protein Albumin Lipase Ethyl Alcohol < 10 COVID-19 ([facility]) COVID-19 Clin Com Influenza Type A (PCR) NEGATIVE Influenza Type B (PCR) NEGATIVE RSV RNA Qual (PCR) NEGATIVE SARS-CoV-2 RNA (RT-PCR) NEGATIVE 11/20/22 11/20/22 11/20/22 08:28 09:31 11:57 MCV MCH MCHC RDW Plt Count MPV Immature Gran % (Auto) Neut % (Auto) Lymph % (Auto) [place] % (Auto) Eos % (Auto) Baso % (Auto) Lymph # (Auto) [place] # (Auto) Eos # (Auto) Baso # (Auto) Abs Immat Gran (auto) Absolute Neuts (auto) Absolute Nucleated RBC Nucleated RBC % (auto) PT INR APTT Anion Gap Estim Creat Clear Calc Estimated GFR POC Glucose Random Glucose Lactic Acid Calcium Total Bilirubin Direct Bilirubin AST ALT Alkaline Phosphatase Total Creatine Kinase 114 Troponin I High Sens 2019.5 H* B-Natriuretic Peptide Total Protein Albumin Lipase Ethyl Alcohol COVID-19 ([facility]) Negative COVID-19 Clin Com See Note Influenza Type A (PCR) Influenza Type B (PCR) RSV RNA Qual (PCR) SARS-CoV-2 RNA (RT-PCR) Imaging Radiologist's Impressions: Impressions Cervical Spine CT 11/20/22 09:00 IMPRESSION: 1. No acute cervical spine abnormality. 2. Incidental partial visualization of right pleural effusion. Correlation with PA and lateral views of the chest is recommended. Head CT 11/20/22 09:00 IMPRESSION: No acute intracranial pathology. Chest X-Ray 11/20/22 11:14 IMPRESSION: Small bilateral pleural effusions, right greater than left representing interval decrease from the most recent CT scan. Assessment and Plan (1) Non-ST elevated myocardial infarction (non-STEMI): Status: Acute (2) Syncope and collapse: Status: Acute (3) Metabolic encephalopathy: Status: Acute Plan 62 year old male with from SNF with with multiple chronic medical issues as listed above and including ESRD HD TuThSat, DM, HTN, dementia. He was brouht to ED to be evaluated for an unwintessed syncopal episode and is found to have NSTEMI. #NSTEMI--no chest pain or sob, no dynamic ECG -IV heparin as avised by cardiology -ASA, BB, STatin and usual BP meds -Trend troponin I -Cardiology to advise on further management ie echo #Syncope etiology unclear--Tele monitoring for arrythmia #ESRD--Dialysis TuThSat, Nephrology consult #HTN--resume home meds #Diabetes--Basal +SSI, diabetes diet #DVT prophylaxis--heparin #Small stephanie P. effusion, likely related to ESRD Full code Admission to last at least 2 midnights for management of NSTEMI on iv heparin, syncope Time Spent With Patient Time: Total time managing care of this patient today ____ minutes. Quality Stroke Does the patient have a stroke diagnosis?: No VTE Prior VTE?: No VTE Risk Level:: Medical - moderate - high VTE Device Contraindication: Treatment Not Indicated VTE Drug Contraindication: N/A - Med Ordered
[2022-11-20 13:53] LABS: PTT Heparin Drip 34.8 SEC (53-77.9)
--- NOTE | 2022-11-20 14:01 | PC.NURSE ---
IV that was placed this morning via us had become dislodged from vein. New IV is needed for Heparin drip.
[2022-11-20 14:03] LABS: Glucose, Whole Blood 183 mg/dL (60-115)
[2022-11-20] MEDS: carvediloL 25 MG TABLET PO ×2 (14:44→22:46)
[2022-11-20] MEDS: hydrALAZINE HCl 25 MG TABLET PO ×2 (14:44→22:46)
[2022-11-20] MEDS: Losartan Potassium 50 MG TABLET 100 MG PO ×2 (14:45→22:46)
[2022-11-20] MEDS: Heparin Sodium,Porcine 5,000 UNIT/ML VIAL 4000 UNIT IVPUSH (14:48)
[2022-11-20] MEDS: Heparin Sodium,Porcine/1/2NS 25,000 UNIT/250 ML IV.SOLN 9.73 UNIT IVCONT (14:50)
--- NOTE | 2022-11-20 14:53 | PC.NURSE ---
new IV place via US. Hep drip started per protocol
--- NOTE | 2022-11-20 14:58 | PC.NURSE ---
clonidine patch unavailable in pyxis
[2022-11-20] MEDS: cloNIDine 0.3 MG PATCH.TDWK TRANSDERMA (16:02)
[2022-11-20 19:03] LABS: Glucose, Whole Blood 187 mg/dL (60-115)
[2022-11-20] MEDS: Insulin Lispro 100 UNIT/ML 3 ML VIAL SUBCUT ×2 (19:03→22:45)
--- NOTE | 2022-11-20 21:27 | MHC.CM.PN ---
CM attempted to meet with patient for discharge planning, however, pt was sleeping.
--- NOTE | 2022-11-20 22:20 | PC.NURSE ---
Heparing rate was adjusted at 14:50 per protocol, aPTT was supposed to be drawn by lab at 2049. No aPTT was drawn. Since pt is admitted, lab was contacted at this time to draw pts aPTT from 2049. YOVANI Feliciano aware
[2022-11-20 22:39] LABS: Glucose, Whole Blood 230 mg/dL (60-115)
[2022-11-20] MEDS: Insulin Glargine,Hum.rec.anlog 100 UNIT/ML 10 ML VIAL 6 UNIT SUBCUT (22:45)
[2022-11-20] MEDS: Mirtazapine 15 MG TABLET PO (22:46)
[2022-11-20] MEDS: Tamsulosin HCL 0.4 MG CAPSULE PO (22:46)
[2022-11-20] MEDS: Acetaminophen 325 MG TABLET 650 MG PO (22:46)
[2022-11-20] MEDS: Docusate Sodium 100 MG CAPSULE PO (22:46)
[2022-11-20] MEDS: 0.9 % Sodium Chloride Flush 3 ML SYRINGE IVFLUSH (22:47)
[2022-11-20 23:18] LABS: PTT Heparin Drip 68.9 SEC (53-77.9)
[2022-11-21] VITALS (7 sets, daily range): BP systolic 128–192; BP diastolic 72–95; PULSE 73–82; RESP 17–20; TEMP 36.3–36.7; O2SAT 90–98
--- NOTE | 2022-11-21 | ECG_ITS ---
Test Reason : nstemi Blood Pressure : / mmHG Vent. Rate : 077 BPM Atrial Rate : 077 BPM P-R Int : 178 ms QRS Dur : 100 ms QT Int : 424 ms P-R-T Axes : 048 -10 030 degrees QTc Int : 479 ms Normal sinus rhythm Normal ECG When compared with ECG of 20-NOV-2022 08:37, Nonspecific T wave abnormality, improved in Inferior leads Nonspecific T wave abnormality no longer evident in Lateral leads Referred By: David Swartz Electronically Signed By:CATHY KAPLAN MD
[2022-11-21 06:54] LABS: INTERNATIONAL NORM RATIO 1.1 (0.9-1.1); Prothrombin Time 12.4 SEC (10.0-13.1)
[2022-11-21 06:57] LABS: PTT Heparin Drip 72.4 SEC (53-77.9)
--- NOTE | 2022-11-21 07:00 | CA_ITS ---
Transthoracic Echocardiogram Patient (Last, First, Middle): Ignacio Drake, Gender: Male Date of : 1960 Age: 62 Procedure Date: 11/21/2022 Procedure Type: Transthoracic Echocardiogram Location[place] [facility] [place] Height: 180.34 cm Weight: 80.29 kg BSA: 2.00 m2 Heart Rate: bpm BP: 128 / 81 mmHg Liquor Rectifier: LEN Referring MD: David Swartz MD Highway Maintainer: Alec Thomas MD Symptoms: NSTEMI Study Quality: Good ECG Rhythm: Sinus Conclusions: - 1. Mildly reduced LV systolic function with LVEF of 45-50% with moderate LVH and restrictive filling pattern 2. Severely dilated left atrium 3. Cardiac valvular Dopplers within normal limits 4. Normal RV systolic pressure 5. Trivial pericardial effusion Findings Left Ventricle Normal left ventricular cavity size. There is moderately increased left ventricular wall thickness. The left ventricular systolic function is mildly decreased. The visually estimated ejection fraction is between 45-50%. Spectral Doppler is indicative of a restrictive filling pattern. E/E prime ratio is between 8 and 15 consistent with indeterminate filling pressures. Right Ventricle Moderately increased right ventricular cavity size. There is normal right ventricular systolic function. Atria The left atrium is severely dilated. There is no evidence of interatrial shunt. The right atrium is mildly dilated. Aortic Valve There is mild calcification of the aortic valve. There is mild thickening of the aortic valve. There is no aortic valve stenosis. There is no aortic valve regurgitation. Mitral Valve There is mild anterior and posterior mitral leaflet thickening. There is mild mitral annular calcification. There is trace mitral valve regurgitation. There is no mitral valve stenosis. Pulmonic Valve The pulmonic valve was not well visualized. Tricuspid Valve Likely normal tricuspid valve structure and function. There is mild tricuspid valve regurgitation. The right ventricular systolic pressure is normal. The right ventricular systolic pressure is 27 mmHg. Normal right atrial pressure. There is no evidence of pulmonary hypertension. Great Vessels All visible segments of the aorta are normal in size. The pulmonary artery was not well visualized. Venous The inferior vena cava is normal in size and collapses greater than 50% with inspiration. Pericardium/Pleural There is a trivial circumferential pericardial effusion. Measurements 2D Linear Measurements IVSd: 1.48 0.6-0.9/0.6-1.0 cm LVIDd: 5.13 3.9-5.3/4.2-5.9 cm LVIDd Index: 2.57 2.4-3.2/2.2-3.1 cm/m2 LVIDs: 3.43 2.0-3.6 cm LVPWd: 1.45 0.7-1.1 cm Ao Root: 3.60 2.1-3.5 cm LA Diam: 4.80 2.7-3.8/3.0-4.0 cm LAIDs Index: 2.40 1.5-2.3 cm/m2 LV Mass: 404.14 67-162/88-224 g LV Mass Index: 202.07 43-95/49-115 g/m2 LVOT Diam: 2.00 3.0+(-)1.3 cm 2D Systolic Function EF 4C: 46.90 >55% EF 2C: 48.20 >55% EF BiP: 48.40 >55% Mitral Valve MV Pk E: 1.20 MV PK A: 0.66 MV Decel Time: 132.00 E/A: 1.80 E'Lateral: 6.20 E'Medial: 2.83 E/E' Med: 42.40 E/E' Lat: 19.40 PHT: 39.00 MVA PHT: 5.64 Decel Hubbard: 9.11 Aortic Valve AoV Pk Jesse: 1.51 AoV Mn Jesse: 1.01 AoV VTI: 0.36 AoV Pk Grad: 9.00 Aov Mn Grad: 5.00 CHECO Cont.VTI: 1.94 LVOT LVOT Pk Jesse: 0.95 LVOT Mn Jesse: 0.55 LVOT VTI: 0.23 LVOT Pk Grad: 4.00 LVOT Mn Grad: 2.00 LVOT Diam: 2.00 LVOT Area: 3.14 Diastolic Function MV Pk E: 1.20 MV Pk A: 0.66 E/A: 1.80 E'Medial: 2.83 E/E' Med: 42.40 E' Laterial: 6.20 E/E' Lat: 19.40 Right Ventricle TAPSE (mm): 22.00 TVS' Jesse: 10.00 Tricuspid Valve TR Pk Jesse: 2.44 TR Pk Grad: 24.00 RA Press: 3.00 RVSP: 27.00 Great Vessels Aorta Ao Root-2D: 3.60 2.0-3.7 cm Pulmonary Valve PV Pk Jesse: 0.90 Peak PV Grad: 3.00 Updated in Other Vendor System with Status of Final Alec Thomas MD electronically signed on 11/21/2022 5:18:23 PM with status of Final
--- NOTE | 2022-11-21 09:04 | HO.PM.IMPN ---
Subjective Subjective Date of Service: 11/21/22 Interval History: f/u on syncope, NSTEMI interval history: no chest pain, no shortness of breath. Physical Exam Vital Signs: Vital Signs: Last Vital Signs Temp 97.3 F 11/21/22 07:25 Pulse 78 11/21/22 07:25 Resp 20 11/21/22 07:25 BP 128/81 11/21/22 07:25 Pulse Ox 96 11/21/22 07:25 O2 Del Method Room Air 11/21/22 07:25 BMI result Body Mass Index 24.7 Const: Other: General: AO X 2, no acute distress Resp: CTA bilateral CVS: S1,S2,RRR GI: +BS, NT, no distention Skin: No rash Neuro: motor grossly intact Psych: appropriate affect Objective Data Active Medications Acetaminophen (Acetaminophen 325 Mg Tablet) 650 mg PO Q6H PRN PRN Reason: Fever Or Pain Last Admin: 11/20/22 22:46 Dose: 650 mg Documented By: MIGUEL Acetaminophen (Acetaminophen Supp 650 Mg Supp.Rect) 650 mg SD Q6H PRN PRN Reason: Fever Or Pain Amlodipine Besylate (Amlodipine Besylate 10 Mg Tablet) 10 mg PO DAILY [facility]; Protocol Last Admin: 11/21/22 08:51 Dose: Not Given Documented By: XOCHILT Non-Admin Reason: Off unit: Dialysis Aspirin (Aspirin Enteric Coated 81 Mg Tablet.Dr) 81 mg PO DAILY [facility] Last Admin: 11/21/22 08:51 Dose: Not Given Documented By: XOCHILT Non-Admin Reason: Off unit: Dialysis Atorvastatin Calcium (Atorvastatin Calcium 80 Mg Tablet) 80 mg PO DAILY [facility] Last Admin: 11/21/22 08:51 Dose: Not Given Documented By: XOCHILT Non-Admin Reason: Off unit: Dialysis Bisacodyl (Bisacodyl 10 Mg Supp.Rect) 10 mg SD DAILY PRN PRN Reason: Constipation Calcitriol (Calcitriol 0.25 Mcg Capsule) 1 mcg PO MOWEFR [facility] Last Admin: 11/21/22 08:51 Dose: Not Given Documented By: XOCHILT Non-Admin Reason: Off unit: Dialysis Carvedilol (Carvedilol 25 Mg Tablet) 25 mg PO BID [facility]; Protocol Last Admin: 11/21/22 08:51 Dose: Not Given Documented By: XOCHILT Non-Admin Reason: Off unit: Dialysis Clonidine (Clonidine 0.3 Mg Patch.Tdwk) 0.3 mg TRANSDERMA Q7D [facility]; Protocol Last Admin: 11/20/22 16:02 Dose: 0.3 mg Documented By: RANDI Docusate Sodium (Docusate Sodium 100 Mg Capsule) 100 mg PO BID [facility] Last Admin: 11/21/22 08:52 Dose: Not Given Documented By: XOCHILT Non-Admin Reason: Off unit: Dialysis Duloxetine HCl (Duloxetine Hcl 60 Mg Capsule.Dr) 60 mg PO DAILY [facility] Last Admin: 11/21/22 08:52 Dose: Not Given Documented By: XOCHILT Non-Admin Reason: Off unit: Dialysis Glucose (Glucose Gel 15 Gm Gel..Gram.) 20 gm PO Q15M PRN PRN Reason: BG < 60 Heparin Sodium (Porcine) (Heparin Sodium,Porcine 5,000 Unit/Ml Vial) 3,200 unit 40 unit/kg (3200 unit) IVPUSH PROTOCOL BOLUS PRN; Protocol PRN Reason: 40 unit/kg - Heparin Protocol Heparin Sodium (Porcine) (Heparin Sodium,Porcine 5,000 Unit/Ml Vial) 6,500 unit 80 unit/kg (6500 unit) IVPUSH PROTOCOL BOLUS PRN; Protocol PRN Reason: 80 unit/kg - Heparin Protocol Hydralazine HCl (Hydralazine Hcl 25 Mg Tablet) 25 mg PO TID [facility]; Protocol Last Admin: 11/21/22 08:52 Dose: Not Given Documented By: XOCHILT Non-Admin Reason: Off unit: Dialysis Heparin Sodium/Sodium Chloride (Heparin Sodium,Porcine/1/2ns) 25,000 unit in 250 mls @ 0 mls/hr IVCONT .Q0M [facility]; Protocol Last Titration: 11/21/22 07:27 Dose: 12 units/kg/hr, 9.73 mls/hr Documented By: DAVID Co-signed By: HONEY Insulin Glargine (Insulin Glargine,Hum.Rec.Anlog 100 Unit/Ml 10 Ml Vial) 6 unit SUBCUT BEDTIME [facility] Last Admin: 11/20/22 22:45 Dose: 6 unit Documented By: MIGUEL Insulin Human Lispro (Insulin Lispro 100 Unit/Ml 3 Ml Vial) 0 unit SUBCUT QIDACHS [facility]; Protocol Last Admin: 11/21/22 08:50 Dose: Not Given Documented By: XOCHILT Non-Admin Reason: Off unit: Dialysis Losartan Potassium (Losartan Potassium 50 Mg Tablet) 100 mg PO BID [facility]; Protocol Last Admin: 11/21/22 08:52 Dose: Not Given Documented By: XOCHILT Non-Admin Reason: Off unit: Dialysis Melatonin (Melatonin 3 Mg Tablet) 9 mg PO BEDTIME PRN PRN Reason: Sleep Mirtazapine (Mirtazapine 15 Mg Tablet) 15 mg PO BEDTIME [facility] Last Admin: 11/20/22 22:46 Dose: 15 mg Documented By: MIGUEL Multivitamins/Vitamin C (Multivitamin Tablet) 1 tab PO DAILY [facility] Last Admin: 11/21/22 08:52 Dose: Not Given Documented By: XOCHILT Non-Admin Reason: Off unit: Dialysis Pharmacy Consult (Consult Rx Perform Med Rec) 1 each MISCELLANE ONCE PRN PRN Reason: Consult order Polyethylene Glycol (Polyethylene Glycol 3350 17 Gm Powd.Pack) 17 gm PO DAILY [facility] Last Admin: 11/21/22 08:52 Dose: Not Given Documented By: XOCHILT Non-Admin Reason: Off unit: Dialysis Sodium Chloride (0.9 % Sodium Chloride Flush 3 Ml Syringe) 3 ml IVFLUSH QSHIFT [facility] Last Admin: 11/21/22 08:51 Dose: Not Given Documented By: XOCHILT Non-Admin Reason: IV Running Tamsulosin HCl (Tamsulosin Hcl 0.4 Mg Capsule) 0.4 mg PO BEDTIME [facility] Last Admin: 11/20/22 22:46 Dose: 0.4 mg Documented By: MIGUEL Labs 11/20/22 13:31 11/20/22 08:28 Labs: Laboratory Results - last 24 hr 11/20/22 11/20/22 11/20/22 08:28 08:28 08:28 MCV MCH MCHC RDW Plt Count MPV Absolute Nucleated RBC Nucleated RBC % (auto) PT INR aPTT Heparin Protocol Anion Gap 16 Estim Creat Clear Calc 11.8 Estimated GFR 8 POC Glucose Random Glucose 258 H Calcium 9.3 Total Bilirubin 0.8 Direct Bilirubin 0.3 AST 20 ALT < 5 Alkaline Phosphatase 74 Troponin I High Sens 1611.4 H* D Total Protein 6.8 Albumin 3.6 Lipase 12 COVID-19 ([facility]) COVID-19 Clin Com Influenza Type A (PCR) NEGATIVE Influenza Type B (PCR) NEGATIVE RSV RNA Qual (PCR) NEGATIVE SARS-CoV-2 RNA (RT-PCR) NEGATIVE 11/20/22 11/20/22 11/20/22 09:31 11:57 13:31 MCV 91.4 MCH 31.0 MCHC 33.9 RDW 15.0 Plt Count 122 L MPV 9.1 L Absolute Nucleated RBC 0.000 Nucleated RBC % (auto) 0.0 PT INR aPTT Heparin Protocol Anion Gap Estim Creat Clear Calc Estimated GFR POC Glucose Random Glucose Calcium Total Bilirubin Direct Bilirubin AST ALT Alkaline Phosphatase Troponin I High Sens 2019.5 H* Total Protein Albumin Lipase COVID-19 ([facility]) Negative COVID-19 Clin Com See Note Influenza Type A (PCR) Influenza Type B (PCR) RSV RNA Qual (PCR) SARS-CoV-2 RNA (RT-PCR) 11/20/22 11/20/22 11/20/22 13:31 13:54 18:58 MCV MCH MCHC RDW Plt Count MPV Absolute Nucleated RBC Nucleated RBC % (auto) PT INR aPTT Heparin Protocol 34.8 L Anion Gap Estim Creat Clear Calc Estimated GFR POC Glucose 183 H 187 H Random Glucose Calcium Total Bilirubin Direct Bilirubin AST ALT Alkaline Phosphatase Troponin I High Sens Total Protein Albumin Lipase COVID-19 ([facility]) COVID-19 Clin Com Influenza Type A (PCR) Influenza Type B (PCR) RSV RNA Qual (PCR) SARS-CoV-2 RNA (RT-PCR) 11/20/22 11/20/22 11/21/22 22:36 23:02 06:11 MCV MCH MCHC RDW Plt Count MPV Absolute Nucleated RBC Nucleated RBC % (auto) PT Cancelled INR Cancelled aPTT Heparin Protocol 68.9 D Anion Gap Estim Creat Clear Calc Estimated GFR POC Glucose 230 H Random Glucose Calcium Total Bilirubin Direct Bilirubin AST ALT Alkaline Phosphatase Troponin I High Sens Total Protein Albumin Lipase COVID-19 ([facility]) COVID-19 Clin Com Influenza Type A (PCR) Influenza Type B (PCR) RSV RNA Qual (PCR) SARS-CoV-2 RNA (RT-PCR) 11/21/22 06:11 MCV MCH MCHC RDW Plt Count MPV Absolute Nucleated RBC Nucleated RBC % (auto) PT 12.4 INR 1.1 aPTT Heparin Protocol 72.4 Anion Gap Estim Creat Clear Calc Estimated GFR POC Glucose Random Glucose Calcium Total Bilirubin Direct Bilirubin AST ALT Alkaline Phosphatase Troponin I High Sens Total Protein Albumin Lipase COVID-19 ([facility]) COVID-19 Clin Com Influenza Type A (PCR) Influenza Type B (PCR) RSV RNA Qual (PCR) SARS-CoV-2 RNA (RT-PCR) Assessment and Plan (1) Non-ST elevated myocardial infarction (non-STEMI): Status: Acute (2) Syncope and collapse: Status: Acute (3) Metabolic encephalopathy: Status: Acute Plan 62 year old male with from SNF with with multiple chronic medical issues as listed above and including ESRD HD TuThSat, DM, HTN, dementia. He was brouht to ED to be evaluated for an unwintessed syncopal episode and is found to have NSTEMI. #NSTEMI--no chest pain or sob, no dynamic ECG -IV heparin as avised by cardiology -ASA, BB, STatin and usual BP meds -Trend troponin I -Cardiology to advise on further management ie echo #Syncope etiology unclear--no arrythmia on Tele, monitoring for arrythmia #ESRD--Dialysis TuThSat, Nephrology consult #HTN--continue home meds #Diabetes--Basal +SSI, diabetes diet #DVT prophylaxis--heparin #Small stephanie P. effusion, likely related to ESRD Full code Need for inpatient:or management of NSTEMI on iv heparin, syncope work up Time Spent With Patient Time: Total time managing care of this patient today ____ minutes. Quality Stroke Does the patient have a stroke diagnosis?: No VTE Prior VTE?: No VTE Risk Level:: Medical - moderate - high VTE Device Contraindication: Treatment Not Indicated VTE Drug Contraindication: N/A - Med Ordered
--- NOTE | 2022-11-21 09:34 | MHC.CLN ---
NUTRITION RECEIVING HEMODIALYSIS. DIET CHANGED PER DIALYSIS PARAMETERS: DIABETIC 1800 KCALS, 2 G SODIUM, LOW POTASSIUM, LOW PHOSPHOROUS.
--- NOTE | 2022-11-21 10:26 | P.CONNP_ITS ---
History of Present Illness Reason for Consult Consult date: 11/21/22 Reason for consult: ESRD Chief Complaint Chief complaint: syncope History of Present Illness Narrative: 62 year old male with from SNF with with multiple chronic? medical issues as listed below and including ESRD HD TuThSat, DM, HTN, dementia. He was brouht to ED to be evaluated for an unwintessed syncopal episode. He was reportedly found unresponsive on the floor with no apparent injury.? He is presently alert but is not able to elaborate on what happened. ED work up CT head ? No acute pathology, cervical spine CT showed no acute fracture.? Checks x-ray showed a small bilateral pleural effusion.? Lab is noted for troponin I of a 1600 and has gone up to 2000.? He is not reporting any chest pain or shortness of breath.? His BNP is 2700.? He is due for dialysis today.? EKG showed nonspecific ST T wave changes.? ED physician has discussed the case with the prototype model maker and advised to start heparin.? also the patient was noted to have a temperature of 94 degrees and that was warmed? and temp is now 98,? no signs or symptoms of infect ion at this time. Review of Systems Review of Systems Yes all other systems are reviewed and are negative PMFSH Past Medical History Medical History Anemia Atrial fibrillation Bacteremia Benign prostate hyperplasia Cellulitis Constipation COPD (chronic obstructive pulmonary disease) Dementia Diabetes mellitus type 1 Dysphagia End stage renal disease on dialysis ESRD (end stage renal disease) on dialysis Gastrointestinal hemorrhage Hepatitis C Hyperkalemia Hyperlipemia Hypernatremia Hyperparathyroidism Hypertension Hypertensive cardiopathy Major depressive disorder Nicotine dependence Osteoarthritis Peripheral vascular disease Sepsis Septic shock Streptococcal sepsis, unspecified Systolic CHF Urine retention Vitamin D deficiency Social History Social History Household Members: Other Household Members Other:: [facility] Housing: Skilled Nursing Do you presently have visiting nurse or other home services: Yes Unable to assess alcohol history related to: Unable to respond Patient Tobacco Use Status: Current everyday Tobacco user Tobacco use type: Cigarette Smoked in Last 30 Days: Yes Patient Interested in Nicotine Replacement: Yes Patient Given Instructions on How to Stop Smoking: Yes Date Education Initiated: 11/20/22 Second Hand Smoke Exposure: No Use of substances other than those prescribed or required for medical reasons: No Currently Displaying Signs/Symptoms of Drug Intoxication Withdrawal: No Any prior treatment program specific to substance use: No Have you been hit, kicked, punched, or otherwise hurt by someone within the past year? If so, by whom?: No Do you feel safe in your current relationship?: No Current Relationship Is there a partner from a previous relationship who is making you feel unsafe now?: No Are you made to feel afraid or neglected: No Advance Directives: Yes Advance Directives on File: Yes Advance Directives Date on File: 06/22/22 Do you have thoughts of harming others: None Do you have a plan to hurt others: No Plan Recently lost weight without trying: No Eating poorly because of decreased appetite: No Nutrition Risks: No Nutritional Risk Poor oral hygiene: No service: No Current occupational status: [employer] Allergies Allergy/AdvReac Type Severity Reaction Status Date / Time No Known Allergies Allergy Verified 06/17/22 08:41 Active Medications: Current Medications Acetaminophen (Acetaminophen 325 Mg Tablet) 650 mg PO Q6H PRN PRN Reason: Fever Or Pain Last Admin: 11/20/22 22:46 Dose: 650 mg Acetaminophen (Acetaminophen Supp 650 Mg Supp.Rect) 650 mg MO Q6H PRN PRN Reason: Fever Or Pain Amlodipine Besylate (Amlodipine Besylate 10 Mg Tablet) 10 mg PO DAILY [facility]; Protocol Last Admin: 11/21/22 08:51 Dose: Not Given Aspirin (Aspirin Enteric Coated 81 Mg Tablet.) 81 mg PO DAILY [facility] Last Admin: 11/21/22 08:51 Dose: Not Given Atorvastatin Calcium (Atorvastatin Calcium 80 Mg Tablet) 80 mg PO DAILY [facility] Last Admin: 11/21/22 08:51 Dose: Not Given Bisacodyl (Bisacodyl 10 Mg Supp.Rect) 10 mg MO DAILY PRN PRN Reason: Constipation Calcitriol (Calcitriol 0.25 Mcg Capsule) 1 mcg PO MOWEFR [facility] Last Admin: 11/21/22 08:51 Dose: Not Given Carvedilol (Carvedilol 25 Mg Tablet) 25 mg PO BID [facility]; Protocol Last Admin: 11/21/22 08:51 Dose: Not Given Clonidine (Clonidine 0.3 Mg Patch.Tdwk) 0.3 mg TRANSDERMA Q7D [facility]; Protocol Last Admin: 11/20/22 16:02 Dose: 0.3 mg Docusate Sodium (Docusate Sodium 100 Mg Capsule) 100 mg PO BID [facility] Last Admin: 11/21/22 08:52 Dose: Not Given Duloxetine HCl (Duloxetine Hcl 60 Mg Capsule.Dr) 60 mg PO DAILY [facility] Last Admin: 11/21/22 08:52 Dose: Not Given Glucose (Glucose Gel 15 Gm Gel..Gram.) 20 gm PO Q15M PRN PRN Reason: BG < 60 Heparin Sodium (Porcine) (Heparin Sodium,Porcine 5,000 Unit/Ml Vial) 3,200 unit 40 unit/kg (3200 unit) IVPUSH PROTOCOL BOLUS PRN; Protocol PRN Reason: 40 unit/kg - Heparin Protocol Heparin Sodium (Porcine) (Heparin Sodium,Porcine 5,000 Unit/Ml Vial) 6,500 unit 80 unit/kg (6500 unit) IVPUSH PROTOCOL BOLUS PRN; Protocol PRN Reason: 80 unit/kg - Heparin Protocol Hydralazine HCl (Hydralazine Hcl 25 Mg Tablet) 25 mg PO TID [facility]; Protocol Last Admin: 11/21/22 08:52 Dose: Not Given Heparin Sodium/Sodium Chloride (Heparin Sodium,Porcine/1/2ns) 25,000 unit in 250 mls @ 0 mls/hr IVCONT .Q0M [facility]; Protocol Last Titration: 11/21/22 07:27 Dose: 12 units/kg/hr, 9.73 mls/hr Insulin Glargine (Insulin Glargine,Hum.Rec.Anlog 100 Unit/Ml 10 Ml Vial) 6 unit SUBCUT BEDTIME [facility] Last Admin: 11/20/22 22:45 Dose: 6 unit Insulin Human Lispro (Insulin Lispro 100 Unit/Ml 3 Ml Vial) 0 unit SUBCUT QIDACHS [facility]; Protocol Last Admin: 11/21/22 08:50 Dose: Not Given Losartan Potassium (Losartan Potassium 50 Mg Tablet) 100 mg PO BID [facility]; Protocol Last Admin: 11/21/22 08:52 Dose: Not Given Melatonin (Melatonin 3 Mg Tablet) 9 mg PO BEDTIME PRN PRN Reason: Sleep Mirtazapine (Mirtazapine 15 Mg Tablet) 15 mg PO BEDTIME [facility] Last Admin: 11/20/22 22:46 Dose: 15 mg Multivitamins/Vitamin C (Multivitamin Tablet) 1 tab PO DAILY [facility] Last Admin: 11/21/22 08:52 Dose: Not Given Pharmacy Consult (Consult Rx Perform Med Rec) 1 each MISCELLANE ONCE PRN PRN Reason: Consult order Polyethylene Glycol (Polyethylene Glycol 3350 17 Gm Powd.Pack) 17 gm PO DAILY [facility] Last Admin: 11/21/22 08:52 Dose: Not Given Sodium Chloride (0.9 % Sodium Chloride Flush 3 Ml Syringe) 3 ml IVFLUSH QSHIFT [facility] Last Admin: 11/21/22 08:51 Dose: Not Given Tamsulosin HCl (Tamsulosin Hcl 0.4 Mg Capsule) 0.4 mg PO BEDTIME [facility] Last Admin: 11/20/22 22:46 Dose: 0.4 mg Home Medications Medication Instructions Recorded Confirmed Last Taken Type amlodipine 10 mg tablet 1 tab PO QAM 06/17/22 11/20/22 06/16/22 History atorvastatin 80 mg tablet 1 tab PO DAILY 06/17/22 11/20/22 06/16/22 History calcitriol 0.5 mcg capsule 1 mcg PO MOWEFR 06/17/22 11/20/22 06/15/22 History carvedilol 25 mg tablet 1 tab PO BID 06/17/22 11/20/22 06/16/22 History cholecalciferol (vitamin D3) 1,250 1,250 mcg PO QMONTH 06/17/22 11/20/22 11/01/22 History mcg (50,000 unit) tablet duloxetine 60 mg capsule,delayed 1 cap PO DAILY 06/17/22 11/20/22 06/16/22 History release insulin lispro 100 unit/mL 1 sliding scale dose subcut 06/17/22 11/20/22 06/16/22 History subcutaneous solution (Humalog USEASDIRECTD U-100 Insulin) losartan 100 mg tablet 100 mg PO BID 06/17/22 11/20/22 06/16/22 History mirtazapine 15 mg tablet 1 tab PO BEDTIME 06/17/22 11/20/22 06/16/22 History multivitamin 1 tab PO DAILY 06/17/22 11/20/22 06/16/22 History tamsulosin 0.4 mg capsule 1 cap PO BEDTIME 06/17/22 11/20/22 06/16/22 History acetaminophen 325 mg tablet 650 mg PO Q6H PRN Fever Or Pain 11/20/22 11/20/22 Unknown History acetaminophen 650 mg rectal 650 mg MO Q6H PRN Fever Or Pain 11/20/22 11/20/22 Unknown History suppository bisacodyl 10 mg rectal suppository 10 mg MO DAILY PRN Constipation 11/20/22 11/20/22 Unknown History clonidine 0.3 mg/24 hr weekly 1 patch transdermal Q7D 11/20/22 11/20/22 Unknown History transdermal patch dextrose 40 % oral gel (Glucose 20 g PO Q15M PRN BG < 60 11/20/22 11/20/22 Unknown History Gel) docusate sodium 100 mg capsule 100 mg PO BID 11/20/22 11/20/22 Unknown History (Colace) insulin glargine 100 unit/mL (3 6 unit subcut QPM 11/20/22 11/20/22 Unknown History mL) subcutaneous pen (Lantus Solostar U-100 Insulin) melatonin 5 mg tablet 10 mg PO BEDTIME PRN Sleep 11/20/22 11/20/22 Unknown History naloxone 0.4 mg/mL injection 0.4 mg IM Q2M PRN Opioid Reversal 11/20/22 11/20/22 Unknown History syringe oxycodone 5 mg tablet 5 mg PO Q6H PRN Pain 11/20/22 11/20/22 Unknown History polyethylene glycol 3350 17 17 g PO DAILY 11/20/22 11/20/22 Unknown History gram/dose oral powder (Miralax) Physical Exam Vital Signs: Last Vital Signs Temp 97.3 F 11/21/22 07:25 Pulse 78 11/21/22 07:25 Resp 20 11/21/22 07:25 BP 128/81 11/21/22 07:25 Pulse Ox 96 11/21/22 07:25 O2 Del Method Room Air 11/21/22 07:25 BMI result Body Mass Index 24.7 Constitutional: Alert, in no distress, oriented to self, place Mental Status: Oriented to person, place and time. Eyes: Pupils are equal, round and reactive to light. Ear, Nose and Throat: Oropharynx clear, mucous membranes moist. Respiratory: Clear to auscultation. No wheezing, rales or rhonchi. Cardiovascular: S1 S2 regular. No murmurs, rubs or gallops. Gastrointestinal: Abdomen soft, non-tender, non-distended. Normal bowel sounds.? Neurologic: Cranial nerves II-XII grossly intact. No focal neurological deficits. Moves all extremities spontaneously.? Skin: No rashes or lesions.? Musculoskeletal: No cyanosis or clubbing. Psychiatric: Normal mood and affect? Results Lab Results 11/20/22 13:31 11/20/22 08:28 Lab results: Chemistry 11/20/22 08:28 Sodium 129 L Potassium 4.2 Carbon Dioxide 32 H BUN 40 H Creatinine 6.78 H* Calcium 9.3 Hematology 11/20/22 11/20/22 08:28 13:31 WBC 5.9 4.2 L Hgb 10.5 L 10.1 L Plt Count 133 L D 122 L Assessment and Plan (1) End stage renal disease on dialysis: Status: Acute Plan ? 62-year-old man with ESRD admitted with change in mentation. Overall he has been well dialyzed. He has been compliant with his medications and dialysis treatments. Mild anemia due to ESRD. Hyponatremia due to decreased free water clearance. We will arrange for dialysis today. Continue with dialysis 3 times a week and optimize fluid status. Epogen for anemia as per protocol. Restrict oral free water intake to correct hyponatremia. We will follow along as needed. Thank you Time Spent With Patient Time: Total time managing care of this patient today ____ minutes. Procedures Date of Service Date of Service: 11/21/22
--- NOTE | 2022-11-21 11:00 | P.CONCA_ITS ---
History of Present Illness History of Present Illness Date of Service: 11/21/22 Requesting physician: [facility] Consult reason: troponin elevation and other ( syncope) Chief complaint: syncope Narrative: I was consulted to see Ignacio in cardiology consultation today for syncopal episode being found on the floor. History was obtained from the patient himself and from the chart. There is reported history of dementia but patient provides good history. He is aware of where he is and says that he is in the hospital initially thought it was at [facility] but knows that he is at [facility]. He also knows that he lives in a [place] [facility] facility and knows the time and date. Patient was brought to the emergency room, referred from [facility] after he was found on the floor. Patient said he does not recall how he got on the floor. He denies any episodes of palpitations, chest pain, shortness of breath prior to being on the floor. His main complaint currently is back pain related to spinal stenosis. He said he is at the [facility] right now for getting physical therapy. He denies any prior cardiac history. He said he has and she renal disease related to hypertension diabetes, has been on dialysis for about 5 years. He has minimal functionality. He has no known history of coronary artery disease or vascular disease or myocardial infarction or stroke as per him. On presentation his troponin was 1600 subsequent troponin was 2100. He continues to have no chest pain. EKG did not show any significant ST deviation. He is currently getting dialysis. Overnight telemetry as shown no significant arrhythmias except for isolated PVCs. He shows sign of significantly labile blood pressure. when he presently emergency room it appears that he was confused and was hypothermic. However his hypothermia as resolved and appears that his confusion has improved. Head CT was negative for acute intracranial pathology Review of Systems Constitutional: Constitutional: Reports no additional constitutional complaints Eyes: Eyes: Reports no additional eye complaints Cardiovascular: Cardiovascular: Denies chest pain, Denies leg edema, Denies lightheadedness, Denies palpitations and Denies dyspnea Respiratory: Respiratory: Denies no additional respiratory complaints and Denies dyspnea Gastrointestinal: Gastrointestinal: Reports no additional gastrointestinal complaints Genitourinary: Genitourinary: Reports no additional male genitourinary complaints Musculoskeletal: Musculoskeletal: Reports back pain Neurologic: Reports system reviewed and no additional complaints, except as documented Endocrine: Endocrine: Denies palpitations PMFSH Past Medical History Medical History Anemia Atrial fibrillation Bacteremia Benign prostate hyperplasia Cellulitis Constipation COPD (chronic obstructive pulmonary disease) Dementia Diabetes mellitus type 1 Dysphagia End stage renal disease on dialysis ESRD (end stage renal disease) on dialysis Gastrointestinal hemorrhage Hepatitis C Hyperkalemia Hyperlipemia Hypernatremia Hyperparathyroidism Hypertension Hypertensive cardiopathy Major depressive disorder Nicotine dependence Osteoarthritis Peripheral vascular disease Sepsis Septic shock Streptococcal sepsis, unspecified Systolic CHF Urine retention Vitamin D deficiency Social History Social History Household Members: Other Household Members Other:: [facility] Housing: Longterm Do you presently have visiting nurse or other home services: Yes Unable to assess alcohol history related to: Unable to respond Patient Tobacco Use Status: Current everyday Tobacco user Tobacco use type: Cigarette Smoked in Last 30 Days: Yes Patient Interested in Nicotine Replacement: Yes Patient Given Instructions on How to Stop Smoking: Yes Date Education Initiated: 11/20/22 Second Hand Smoke Exposure: No Use of substances other than those prescribed or required for medical reasons: No Currently Displaying Signs/Symptoms of Drug Intoxication Withdrawal: No Any prior treatment program specific to substance use: No Have you been hit, kicked, punched, or otherwise hurt by someone within the past year? If so, by whom?: No Do you feel safe in your current relationship?: No Current Relationship Is there a partner from a previous relationship who is making you feel unsafe now?: No Are you made to feel afraid or neglected: No Advance Directives: Yes Advance Directives on File: Yes Advance Directives Date on File: 06/22/22 Do you have thoughts of harming others: None Do you have a plan to hurt others: No Plan Recently lost weight without trying: No Eating poorly because of decreased appetite: No Nutrition Risks: No Nutritional Risk Poor oral hygiene: No Meds Allergies Allergy/AdvReac Type Severity Reaction Status Date / Time No Known Allergies Allergy Verified 06/17/22 08:41 Active Medications: Current Medications Acetaminophen (Acetaminophen 325 Mg Tablet) 650 mg PO Q6H PRN PRN Reason: Fever Or Pain Last Admin: 11/20/22 22:46 Dose: 650 mg Acetaminophen (Acetaminophen Supp 650 Mg Supp.Rect) 650 mg NM Q6H PRN PRN Reason: Fever Or Pain Amlodipine Besylate (Amlodipine Besylate 10 Mg Tablet) 10 mg PO DAILY [facility]; Protocol Last Admin: 11/21/22 08:51 Dose: Not Given Aspirin (Aspirin Enteric Coated 81 Mg Tablet.) 81 mg PO DAILY [facility] Last Admin: 11/21/22 08:51 Dose: Not Given Atorvastatin Calcium (Atorvastatin Calcium 80 Mg Tablet) 80 mg PO DAILY [facility] Last Admin: 11/21/22 08:51 Dose: Not Given Bisacodyl (Bisacodyl 10 Mg Supp.Rect) 10 mg NM DAILY PRN PRN Reason: Constipation Calcitriol (Calcitriol 0.25 Mcg Capsule) 1 mcg PO MOWEFR [facility] Last Admin: 11/21/22 08:51 Dose: Not Given Carvedilol (Carvedilol 25 Mg Tablet) 25 mg PO BID [facility]; Protocol Last Admin: 11/21/22 08:51 Dose: Not Given Clonidine (Clonidine 0.3 Mg Patch.Tdwk) 0.3 mg TRANSDERMA Q7D [facility]; Protocol Last Admin: 11/20/22 16:02 Dose: 0.3 mg Docusate Sodium (Docusate Sodium 100 Mg Capsule) 100 mg PO BID [facility] Last Admin: 11/21/22 08:52 Dose: Not Given Duloxetine HCl (Duloxetine Hcl 60 Mg Capsule.) 60 mg PO DAILY [facility] Last Admin: 11/21/22 08:52 Dose: Not Given Glucose (Glucose Gel 15 Gm Gel..Gram.) 20 gm PO Q15M PRN PRN Reason: BG < 60 Heparin Sodium (Porcine) (Heparin Sodium,Porcine 5,000 Unit/Ml Vial) 3,200 unit 40 unit/kg (3200 unit) IVPUSH PROTOCOL BOLUS PRN; Protocol PRN Reason: 40 unit/kg - Heparin Protocol Heparin Sodium (Porcine) (Heparin Sodium,Porcine 5,000 Unit/Ml Vial) 6,500 unit 80 unit/kg (6500 unit) IVPUSH PROTOCOL BOLUS PRN; Protocol PRN Reason: 80 unit/kg - Heparin Protocol Hydralazine HCl (Hydralazine Hcl 25 Mg Tablet) 25 mg PO TID [facility]; Protocol Last Admin: 11/21/22 08:52 Dose: Not Given Heparin Sodium/Sodium Chloride (Heparin Sodium,Porcine/1/2ns) 25,000 unit in 250 mls @ 0 mls/hr IVCONT .Q0M [facility]; Protocol Last Titration: 11/21/22 07:27 Dose: 12 units/kg/hr, 9.73 mls/hr Insulin Glargine (Insulin Glargine,Hum.Rec.Anlog 100 Unit/Ml 10 Ml Vial) 6 unit SUBCUT BEDTIME [facility] Last Admin: 11/20/22 22:45 Dose: 6 unit Insulin Human Lispro (Insulin Lispro 100 Unit/Ml 3 Ml Vial) 0 unit SUBCUT QIDACHS [facility]; Protocol Last Admin: 11/21/22 08:50 Dose: Not Given Losartan Potassium (Losartan Potassium 50 Mg Tablet) 100 mg PO BID [facility]; Protocol Last Admin: 11/21/22 08:52 Dose: Not Given Melatonin (Melatonin 3 Mg Tablet) 9 mg PO BEDTIME PRN PRN Reason: Sleep Mirtazapine (Mirtazapine 15 Mg Tablet) 15 mg PO BEDTIME [facility] Last Admin: 11/20/22 22:46 Dose: 15 mg Multivitamins/Vitamin C (Multivitamin Tablet) 1 tab PO DAILY [facility] Last Admin: 11/21/22 08:52 Dose: Not Given Pharmacy Consult (Consult Rx Perform Med Rec) 1 each MISCELLANE ONCE PRN PRN Reason: Consult order Polyethylene Glycol (Polyethylene Glycol 3350 17 Gm Powd.Pack) 17 gm PO DAILY [facility] Last Admin: 11/21/22 08:52 Dose: Not Given Sodium Chloride (0.9 % Sodium Chloride Flush 3 Ml Syringe) 3 ml IVFLUSH QSHIFT [facility] Last Admin: 11/21/22 08:51 Dose: Not Given Tamsulosin HCl (Tamsulosin Hcl 0.4 Mg Capsule) 0.4 mg PO BEDTIME [facility] Last Admin: 11/20/22 22:46 Dose: 0.4 mg Home Medications Medication Instructions Recorded Confirmed Last Taken Type amlodipine 10 mg tablet 1 tab PO QAM 06/17/22 11/20/22 06/16/22 History atorvastatin 80 mg tablet 1 tab PO DAILY 06/17/22 11/20/22 06/16/22 History calcitriol 0.5 mcg capsule 1 mcg PO MOWEFR 06/17/22 11/20/22 06/15/22 History carvedilol 25 mg tablet 1 tab PO BID 06/17/22 11/20/22 06/16/22 History cholecalciferol (vitamin D3) 1,250 1,250 mcg PO QMONTH 06/17/22 11/20/22 11/01/22 History mcg (50,000 unit) tablet duloxetine 60 mg capsule,delayed 1 cap PO DAILY 06/17/22 11/20/22 06/16/22 History release insulin lispro 100 unit/mL 1 sliding scale dose subcut 06/17/22 11/20/22 06/16/22 History subcutaneous solution (Humalog USEASDIRECTD U-100 Insulin) losartan 100 mg tablet 100 mg PO BID 06/17/22 11/20/22 06/16/22 History mirtazapine 15 mg tablet 1 tab PO BEDTIME 06/17/22 11/20/22 06/16/22 History multivitamin 1 tab PO DAILY 06/17/22 11/20/22 06/16/22 History tamsulosin 0.4 mg capsule 1 cap PO BEDTIME 06/17/22 11/20/22 06/16/22 History acetaminophen 325 mg tablet 650 mg PO Q6H PRN Fever Or Pain 11/20/22 11/20/22 Unknown History acetaminophen 650 mg rectal 650 mg NM Q6H PRN Fever Or Pain 11/20/22 11/20/22 U nknown History suppository bisacodyl 10 mg rectal suppository 10 mg NM DAILY PRN Constipation 11/20/22 11/20/22 Unknown History clonidine 0.3 mg/24 hr weekly 1 patch transdermal Q7D 11/20/22 11/20/22 Unknown History transdermal patch dextrose 40 % oral gel (Glucose 20 g PO Q15M PRN BG < 60 11/20/22 11/20/22 Unknown History Gel) docusate sodium 100 mg capsule 100 mg PO BID 11/20/22 11/20/22 Unknown History (Colace) insulin glargine 100 unit/mL (3 6 unit subcut QPM 11/20/22 11/20/22 Unknown History mL) subcutaneous pen (Lantus Solostar U-100 Insulin) melatonin 5 mg tablet 10 mg PO BEDTIME PRN Sleep 11/20/22 11/20/22 Unknown History naloxone 0.4 mg/mL injection 0.4 mg IM Q2M PRN Opioid Reversal 11/20/22 11/20/22 Unknown History syringe oxycodone 5 mg tablet 5 mg PO Q6H PRN Pain 11/20/22 11/20/22 Unknown History polyethylene glycol 3350 17 17 g PO DAILY 11/20/22 11/20/22 Unknown History gram/dose oral powder (Miralax) Physical Exam Vital Signs: Vital Signs: Last Vital Signs Temp 97.3 F 11/21/22 07:25 Pulse 78 11/21/22 07:25 Resp 20 11/21/22 07:25 BP 128/81 11/21/22 07:25 Pulse Ox 96 11/21/22 07:25 O2 Del Method Room Air 11/21/22 07:25 BMI result Body Mass Index 24.7 Const: General: cooperative, comfortable, no acute distress, alert and awake Nutritional Appearance: average body habitus Orientation/consciousness: patient oriented x3 Limitations: no limitations HEENT: Head: Yes normocephalic and Yes atraumatic Neck: Neck: Yes trachea midline, Yes supple and Yes no JVD Chest: Chest palpation & inspection: normal inspection of the chest Resp: Effort & Inspection: normal respiratory effort Auscultation: clear to auscultation bilaterally Cardio: Jugular venous distension: no JVD Palpation: normal PMI Rate: regular rate Rhythm: regular rhythm Heart sounds: S1 normal heart sound present, S2 normal heart sound present, no click, no gallops, no murmurs and no rubs GI: Auscultation: normal bowel sounds Skin: General skin exam: no rashes or lesions noted Neuro: General: patient oriented x3 and no focal motor deficits Extrem: General: Yes no clubbing, cyanosis or edema Objective Labs and Meds 11/20/22 13:31 11/20/22 08:28 Lab results: Laboratory Results - last 24 hr 11/20/22 11/20/22 11/20/22 11:57 13:31 13:31 WBC 4.2 L RBC 3.26 L Hgb 10.1 L Hct 29.8 L MCV 91.4 MCH 31.0 MCHC 33.9 RDW 15.0 Plt Count 122 L MPV 9.1 L Absolute Nucleated RBC 0.000 Nucleated RBC % (auto) 0.0 PT INR aPTT Heparin Protocol 34.8 L POC Glucose Troponin I High Sens 2019.5 H* 11/20/22 11/20/22 11/20/22 13:54 18:58 22:36 WBC RBC Hgb Hct MCV MCH MCHC RDW Plt Count MPV Absolute Nucleated RBC Nucleated RBC % (auto) PT INR aPTT Heparin Protocol POC Glucose 183 H 187 H 230 H Troponin I High Sens 11/20/22 11/21/22 11/21/22 23:02 06:11 06:11 WBC RBC Hgb Hct MCV MCH MCHC RDW Plt Count MPV Absolute Nucleated RBC Nucleated RBC % (auto) PT Cancelled 12.4 INR Cancelled 1.1 aPTT Heparin Protocol 68.9 D 72.4 POC Glucose Troponin I High Sens Imaging Radiologist's impression: Impressions Chest X-Ray 11/20/22 11:14 IMPRESSION: Small bilateral pleural effusions, right greater than left representing interval decrease from the most recent CT scan. Assessment and Plan (1) Syncope and collapse: Status: Acute patient was found on the floor at [facility] with loss of consciousness. Exact duration of being loss of consciousness unknown. Found to be hypothermic and confused. Noted to have elevated troponins of unclear etiology at this point time. He is at high risk for underlying coronary artery disease given his multiple risk factors including and she renal disease, longstanding insulin-requ iring diabetes and hypertension. Markedly labile blood pressure is possible that his syncopal event could have been related to orthostatic hypotension. Usually however this is transient and usually patient's regained consciousness very quickly. Given that he was hypothermic appears like he might have been on the ground for longer period time. For now given lack of explanation of his elevated troponin although he has no ischemic symptoms with continue IV heparin for anticoagulation. Would obtain an echocardiogram to assess for LV systolic and diastolic function to evaluate for regional wall motion abnormality. If he has significant dysfunction of the LV systolic function as well as has any significant regional wall motion abnormality require further invasive approach to management with cardiac catheterization. If not would pursue myocardial perfusion imaging to assess for significant coronary artery disease. Continue to monitor with full disclosure cardiac telemetry. Perform orthostatic vitals. Will continue to follow with you. Time Spent With Patient Time: Total time managing care of this patient today ____ minutes. Procedures Date of Service Date of Service: 11/21/22
[2022-11-21 11:07] LABS: Troponin-I High Sensitivity 1764.2 ng/L (<3.5-35.0)
--- NOTE | 2022-11-21 14:00 | MHC.CM.PN ---
ALVARENGA 11/21/22. Pt on observation with dx: syncope, s/p fall at SNF ([facility]), he used an electric wheelchair. D/C plan to return to [facility] when medically cleared. HCP on file, (Aaliyah Drake). BLS to transport. PCP: Juan Antonio Guerra Vax: x [phone]
--- NOTE | 2022-11-21 14:11 | MHC.CM.PN ---
IMM 11/21/22. Pt admitted with dx: syncope, s/p fall at SNF ([facility]), he used an electric wheelchair. D/C plan to return to [facility] when medically cleared. HCP on file, (Aaliyah Drake). BLS to transport. PCP: Juan Antonio Guerra Vax: x [phone]
[2022-11-21 14:19] LABS: Glucose, Whole Blood 110 mg/dL (60-115)
[2022-11-21] MEDS: Heparin Sodium,Porcine/1/2NS 25,000 UNIT/250 ML IV.SOLN 9.73 UNIT IVCONT (15:19)
[2022-11-21] MEDS: hydrALAZINE HCl 25 MG TABLET PO ×2 (15:21→20:05)
[2022-11-21 17:03] LABS: Glucose, Whole Blood 102 mg/dL (60-115)
[2022-11-21] MEDS: oxyCODONE HCl Immed Release 5 MG TABLET PO (17:46)
[2022-11-21] MEDS: Mirtazapine 15 MG TABLET PO (20:05)
[2022-11-21] MEDS: Docusate Sodium 100 MG CAPSULE PO (20:06)
[2022-11-21] MEDS: carvediloL 25 MG TABLET PO (20:06)
[2022-11-21] MEDS: Tamsulosin HCL 0.4 MG CAPSULE PO (20:06)
[2022-11-21] MEDS: Losartan Potassium 50 MG TABLET 100 MG PO (20:07)
[2022-11-21] MEDS: Insulin Glargine,Hum.rec.anlog 100 UNIT/ML 10 ML VIAL 6 UNIT SUBCUT (20:08)
[2022-11-21] MEDS: 0.9 % Sodium Chloride Flush 3 ML SYRINGE IVFLUSH (20:09)
[2022-11-21 21:01] LABS: Glucose, Whole Blood 215 mg/dL (60-115)
[2022-11-21] MEDS: Insulin Lispro 100 UNIT/ML 3 ML VIAL SUBCUT (21:17)
[2022-11-22 02:55] VITALS: BP 148/81; PULSE 69; RESP 18; TEMP 36.7; O2SAT 98
[2022-11-22 06:55] LABS: PTT Heparin Drip 72.7 SEC (53-77.9)
[2022-11-22 07:11] VITALS: BP 150/85; PULSE 76; RESP 20; TEMP 36.9; O2SAT 96
[2022-11-22 08:14] LABS: Glucose, Whole Blood 96 mg/dL (60-115)
[2022-11-22] MEDS: DULoxetine HCl 60 MG CAPSULE.DR PO (08:56)
[2022-11-22] MEDS: Aspirin Enteric Coated 81 MG TABLET.DR PO (08:56)
[2022-11-22] MEDS: Losartan Potassium 50 MG TABLET 100 MG PO ×2 (08:56→19:53)
[2022-11-22] MEDS: Atorvastatin Calcium 80 MG TABLET PO (08:56)
[2022-11-22] MEDS: carvediloL 25 MG TABLET PO ×2 (08:57→19:53)
[2022-11-22] MEDS: Multivitamin TABLET 1 TAB PO (08:57)
[2022-11-22] MEDS: hydrALAZINE HCl 25 MG TABLET PO ×2 (08:57→15:10)
[2022-11-22] MEDS: amLODIPine Besylate 10 MG TABLET PO (08:57)
[2022-11-22] MEDS: 0.9 % Sodium Chloride Flush 3 ML SYRINGE IVFLUSH ×3 (08:58→19:53)
[2022-11-22] MEDS: oxyCODONE HCl Immed Release 5 MG TABLET PO (09:00)
--- NOTE | 2022-11-22 11:05 | PM.PNNEP ---
Subjective Subjective Date of Service: 11/22/22 Interval history: f/u on syncope, NSTEMI interval history: no chest pain, no shortness of breath. Physical Exam Vital Signs: Vital Signs: Last Vital Signs Temp 98.5 F 11/22/22 07:11 Pulse 76 11/22/22 07:11 Resp 20 11/22/22 07:11 BP 150/85 H 11/22/22 07:11 Pulse Ox 96 11/22/22 07:11 O2 Del Method Room Air 11/22/22 07:11 BMI result Body Mass Index 24.7 Const: Other: General: AO X 2, no acute distress Resp: CTA bilateral CVS: S1,S2,RRR GI: +BS, NT, no distention Skin: No rash Neuro: motor grossly intact Psych: appropriate affect Objective Data Labs 11/20/22 13:31 11/20/22 08:28 Labs: Laboratory Results - last 24 hr 11/21/22 11/21/22 11/21/22 09:43 14:14 16:59 aPTT Heparin Protocol POC Glucose 110 102 Troponin I High Sens 1764.2 H* 11/21/22 11/22/22 11/22/22 20:57 06:30 07:17 aPTT Heparin Protocol 72.7 POC Glucose 215 H 96 Troponin I High Sens Microbiology Microbiology Results: Microbiology 11/20/22 08:27 Blood - Venous Blood Culture - Preliminary No growth after 48 hours. 11/20/22 08:28 Blood - Venous Blood Culture - Preliminary No growth after 48 hours. Procedures Date of Service Date of Service: 11/22/22 Assessment & Plan Assessment and plan (1) End stage renal disease on dialysis: Status: Acute Plan ? 62-year-old man with ESRD admitted with change in mentation. Overall he has been well dialyzed. He has been compliant with his medications and dialysis treatments. Mild anemia due to ESRD. Hyponatremia due to decreased free water clearance. Continue with dialysis 3 times a week and optimize fluid status. Epogen for anemia as per protocol. Restrict oral free water intake to correct hyponatremia. We will follow along as needed. Thank you Time Spent With Patient Time: Total time managing care of this patient today ____ minutes. Progress Note: Quality Stroke Does the patient have a stroke diagnosis?: No
[2022-11-22 12:00] VITALS: BP 190/90; PULSE 68; TEMP 36.3; O2SAT 94
[2022-11-22] MEDS: Insulin Lispro 100 UNIT/ML 3 ML VIAL SUBCUT ×2 (12:08→16:49)
--- NOTE | 2022-11-22 12:38 | P.PNCA_ITS ---
Subjective Subjective Date of Service: 11/22/22 Principal diagnosis: NSTEMI, question syncope Interval history: Patient not having any chest pain syndrome. Hemodynamically stable. Troponins consistent with NSTEMI. Echocardiogram shows moderate LVH with normal LV systolic function. Patient was found on the ground with unclear etiology. Review of Systems Review of Systems Yes all other systems are reviewed and are negative Physical Exam Vital Signs: Last Vital Signs Temp 97.3 F 11/22/22 12:00 Pulse 68 11/22/22 12:00 Resp 20 11/22/22 07:11 BP 190/90 H 11/22/22 12:00 Pulse Ox 94 11/22/22 12:00 O2 Del Method Room Air 11/22/22 12:00 BMI result Body Mass Index 24.7 Const General: cooperative, comfortable, no acute distress, alert and awake Nutritional Appearance: average body habitus Orientation/consciousness: patient oriented x3 Limitations: no limitations Neck Neck: Yes trachea midline, Yes supple and Yes no JVD Chest Chest palpation & inspection: normal inspection of the chest Resp Effort & Inspection: normal respiratory effort Auscultation: clear to auscultation bilaterally Cardio Jugular venous distension: no JVD Palpation: normal PMI Rate: regular rate Rhythm: regular rhythm Heart sounds: S1 normal heart sound present, S2 normal heart sound present, no click, no gallops, no murmurs and no rubs GI Auscultation: normal bowel sounds Skin General skin exam: no rashes or lesions noted Neuro General: patient oriented x3 and no focal motor deficits Extrem General: Yes no clubbing, cyanosis or edema Objective Labs and Meds 11/20/22 13:31 11/20/22 08:28 Lab results: Laboratory Results - last 24 hr 11/21/22 11/21/22 11/21/22 14:14 16:59 20:57 aPTT Heparin Protocol POC Glucose 110 102 215 H 11/22/22 11/22/22 11/22/22 06:30 07:17 11:23 aPTT Heparin Protocol 72.7 POC Glucose 96 407 H* Progress Note: A&P Assessment and plan (1) Non-ST elevated myocardial infarction (non-STEMI): Status: Acute Assessment and Plan: Unusual presentation with patient being found on flow with no cardiac symptoms question syncopal episode. Patient when presented was hypothermic and hypoglycemic in confused. Were presentation could be cardiac with rise and fall in troponins are suggestive NSTEMI. Echocardiogram does not show any significant regional wall motion abnormality. High likelihood of underlying obstructive coronary artery disease given his risk factors including and she renal disease, diabetes, hypertension. Would suggest a vasodilating myocardial perfusion imaging as inpatient with resting perfusion study to be done today and stress perfusion study tomorrow. Continue to manage risk factors. High-i ntensity statin therapy to be pursued. Continue aggressive blood pressure control, currently not well optimized. Increase hydralazine to 50 mg b.i.d. and can add nitrates to his regimen as well. Will continue to follow with you Time Spent With Patient Time: Total time managing care of this patient today ____ minutes. Progress Note: Quality Stroke Does the patient have a stroke diagnosis?: No Procedures Date of Service Date of Service: 11/22/22
[2022-11-22] MEDS: oxyCODONE HCl Immed Release 5 MG TABLET 10 MG PO ×2 (13:16→19:58)
[2022-11-22 15:32] VITALS: BP 146/80; PULSE 66; RESP 17; TEMP 37; O2SAT 96
[2022-11-22 16:11] LABS: Glucose, Whole Blood 220 mg/dL (60-115)
[2022-11-22] MEDS: Heparin Sodium,Porcine/1/2NS 25,000 UNIT/250 ML IV.SOLN 9.73 UNIT IVCONT (16:50)
--- NOTE | 2022-11-22 17:06 | P.PNIM_ITS ---
Subjective Subjective Date of Service: 11/22/22 Interval History: Resting quietly. No acute issues overnight. No complaints of chest pain Review of Systems Denies chest pain Denies shortness of breath Denies nausea vomiting diarrhea Denies fever chills Physical Exam Vital Signs: Vital Signs: Last Vital Signs Temp 98.6 F 11/22/22 15:32 Pulse 66 11/22/22 15:32 Resp 17 11/22/22 15:32 BP 146/80 H 11/22/22 15:32 Pulse Ox 96 11/22/22 15:32 O2 Del Method Room Air 11/22/22 15:32 BMI result Body Mass Index 24.7 Const: Other: Awake alert no acute distress Resp: Other: Clear to auscultation bilaterally no rales rhonchi or wheezes Cardio: Other: No S4; positive S1-S2; no S3 murmurs rubs or gallops Extrem: Other: No edema bilaterally Objective Data Active Medications Acetaminophen (Acetaminophen 325 Mg Tablet) 650 mg PO Q6H PRN PRN Reason: Fever Or Pain Last Admin: 11/20/22 22:46 Dose: 650 mg Documented By: MIGUEL Acetaminophen (Acetaminophen Supp 650 Mg Supp.Rect) 650 mg MA Q6H PRN PRN Reason: Fever Or Pain Amlodipine Besylate (Amlodipine Besylate 10 Mg Tablet) 10 mg PO DAILY [facility]; Protocol Last Admin: 11/22/22 08:57 Dose: 10 mg Documented By: MAULIK Aspirin (Aspirin Enteric Coated 81 Mg Tablet.) 81 mg PO DAILY [facility] Last Admin: 11/22/22 08:56 Dose: 81 mg Documented By: MAULIK Atorvastatin Calcium (Atorvastatin Calcium 80 Mg Tablet) 80 mg PO DAILY [facility] Last Admin: 11/22/22 08:56 Dose: 80 mg Documented By: MAULIK Bisacodyl (Bisacodyl 10 Mg Supp.Rect) 10 mg MA DAILY PRN PRN Reason: Constipation Calcitriol (Calcitriol 0.25 Mcg Capsule) 1 mcg PO MOWEFR [facility] Last Admin: 11/21/22 08:51 Dose: Not Given Documented By: XOCHILT Non-Admin Reason: Off unit: Dialysis Carvedilol (Carvedilol 25 Mg Tablet) 25 mg PO BID [facility]; Protocol Last Admin: 11/22/22 08:57 Dose: 25 mg Documented By: MAULIK Clonidine (Clonidine 0.3 Mg Patch.Tdwk) 0.3 mg TRANSDERMA Q7D [facility]; Protocol Last Admin: 11/20/22 16:02 Dose: 0.3 mg Documented By: RANDI Docusate Sodium (Docusate Sodium 100 Mg Capsule) 100 mg PO BID [facility] Last Admin: 11/22/22 08:58 Dose: Not Given Documented By: MAULIK Non-Admin Reason: Patient Refused Duloxetine HCl (Duloxetine Hcl 60 Mg Capsule.) 60 mg PO DAILY [facility] Last Admin: 11/22/22 08:56 Dose: 60 mg Documented By: MAULIK Glucose (Glucose Gel 15 Gm Gel..Gram.) 20 gm PO Q15M PRN PRN Reason: BG < 60 Glucose (Glucose Gel 15 Gm Gel..Gram.) 15 gm PO Q15M PRN; Protocol PRN Reason: per Hypoglycemia Standing Ord. Heparin Sodium (Porcine) (Heparin Sodium,Porcine 5,000 Unit/Ml Vial) 3,200 unit 40 unit/kg (3200 unit) IVPUSH PROTOCOL BOLUS PRN; Protocol PRN Reason: 40 unit/kg - Heparin Protocol Heparin Sodium (Porcine) (Heparin Sodium,Porcine 5,000 Unit/Ml Vial) 6,500 unit 80 unit/kg (6500 unit) IVPUSH PROTOCOL BOLUS PRN; Protocol PRN Reason: 80 unit/kg - Heparin Protocol Hydralazine HCl (Hydralazine Hcl 25 Mg Tablet) 25 mg PO TID [facility]; Protocol Last Admin: 11/22/22 15:10 Dose: 25 mg Documented By: MAULIK Heparin Sodium/Sodium Chloride (Heparin Sodium,Porcine/1/2ns) 25,000 unit in 250 mls @ 0 mls/hr IVCONT .Q0M [facility]; Protocol Last Admin: 11/22/22 16:50 Dose: 12 units/kg/hr, 9.73 mls/hr Documented By: MAULIK Co-signed By: JORGE Dextrose (D10) 250 mls @ 750 mls/hr IV Q15M PRN; Protocol PRN Reason: per Hypoglycemia Standing Ord. Insulin Glargine (Insulin Glargine,Hum.Rec.Anlog 100 Unit/Ml 10 Ml Vial) 6 unit SUBCUT BEDTIME [facility] Last Admin: 11/21/22 20:08 Dose: 6 unit Documented By: MEHRAN Insulin Human Lispro (Insulin Lispro 100 Unit/Ml 3 Ml Vial) 0 unit SUBCUT QIDACHS [facility]; Protocol Last Admin: 11/22/22 16:49 Dose: 4 unit Documented By: MAULIK Insulin Human Lispro (Insulin Lispro 100 Unit/Ml 3 Ml Vial) 0 unit SUBCUT QIDACHS [facility]; Protocol Last Admin: 11/22/22 16:50 Dose: Not Given Documented By: MAULIK Non-Admin Reason: Duplicate Order Losartan Potassium (Losartan Potassium 50 Mg Tablet) 100 mg PO BID [facility]; Protocol Last Admin: 11/22/22 08:56 Dose: 100 mg Documented By: MAULIK Melatonin (Melatonin 3 Mg Tablet) 9 mg PO BEDTIME PRN PRN Reason: Sleep Mirtazapine (Mirtazapine 15 Mg Tablet) 15 mg PO BEDTIME [facility] Last Admin: 11/21/22 20:05 Dose: 15 mg Documented By: MEHRAN Multivitamins/Vitamin C (Multivitamin Tablet) 1 tab PO DAILY [facility] Last Admin: 11/22/22 08:57 Dose: 1 tab Documented By: MAULIK Oxycodone HCl (Oxycodone Hcl Immed Release 5 Mg Tablet) 10 mg PO Q4H PRN PRN Reason: Pain, Moderate(Pain Scale 4-6) Last Admin: 11/22/22 13:16 Dose: 10 mg Documented By: MAULIK Pharmacy Consult (Consult Rx Perform Med Rec) 1 each MISCELLANE ONCE PRN PRN Reason: Consult order Polyethylene Glycol (Polyethylene Glycol 3350 17 Gm Powd.Pack) 17 gm PO DAILY [facility] Last Admin: 11/22/22 08:58 Dose: Not Given Documented By: MAULIK Non-Admin Reason: Patient Refused Sodium Chloride (0.9 % Sodium Chloride Flush 3 Ml Syringe) 3 ml IVFLUSH QSHIFT [facility] Last Admin: 11/22/22 16:50 Dose: 3 ml Documented By: MAULIK Tamsulosin HCl (Tamsulosin Hcl 0.4 Mg Capsule) 0.4 mg PO BEDTIME [facility] Last Admin: 11/21/22 20:06 Dose: 0.4 mg Documented By: MEHRAN Labs 11/20/22 13:31 11/20/22 08:28 Labs: Laboratory Results - last 24 hr 11/21/22 11/22/22 11/22/22 20:57 06:30 07:17 aPTT Heparin Protocol 72.7 POC Glucose 215 H 96 11/22/22 11/22/22 11:23 16:09 aPTT Heparin Protocol POC Glucose 407 H* 220 H Microbiology Microbiology Results: Microbiology 11/20/22 08:27 Blood Culture - Preliminary Blood - Venous No growth after 48 hours. 11/20/22 08:28 Blood Culture - Preliminary Blood - Venous No growth after 48 hours. Assessment and Plan (1) Non-ST elevated myocardial infarction (non-STEMI): Status: Acute (2) Syncope and collapse: Status: Acute (3) End stage renal disease on dialysis: Status: Acute Plan 62 year old male with from SNF with with multiple chronic medical issues as listed above and including ESRD HD TuThSat, DM, HTN, dementia. He was brouht to ED to be evaluated for an unwintessed syncopal episode and is found to have NSTEMI. 1.NSTEMI -continue heparin drip -Lexiscan in a.m. -ASA, BB, STatin and usual BP meds 2.Syncope -unclear etiology -asymptomatic since admit 3.ESRD -HD as ordered by renal -follow renals/divalents 4.HTN -increase hydralazine to 50 b.i.d. -adjust as indicated 5.Diabetes II -continue outpatient basal insulin -lispro correctional scale -adjust as indicated Full code Heparin Requires ongoing hospitalization to continue heparin drip and complete cardiac workup for NSTEMI #DVT prophylaxis--heparin #Small stephanie P. effusion, likely related to ESRD Full code Need for inpatient:or management of NSTEMI on iv heparin, syncope work up Time Spent With Patient Time: Total time managing care of this patient today ____ minutes. Quality Stroke Does the patient have a stroke diagnosis?: No VTE Prior VTE?: No VTE Risk Level:: Medical - moderate - high VTE Device Contraindication: Treatment Not Indicated VTE Drug Contraindication: N/A - Med Ordered
[2022-11-22 19:13] VITALS: BP 137/66; PULSE 69; RESP 17; TEMP 36.1; O2SAT 95
[2022-11-22 19:19] LABS: Glucose, Whole Blood 141 mg/dL (60-115)
[2022-11-22] MEDS: Mirtazapine 15 MG TABLET PO (19:52)
[2022-11-22] MEDS: Docusate Sodium 100 MG CAPSULE PO (19:53)
[2022-11-22] MEDS: Insulin Glargine,Hum.rec.anlog 100 UNIT/ML 10 ML VIAL 6 UNIT SUBCUT (19:53)
[2022-11-22] MEDS: Tamsulosin HCL 0.4 MG CAPSULE PO (19:53)
[2022-11-22] MEDS: hydrALAZINE HCl 50 MG TABLET PO (20:53)
[2022-11-22 23:06] VITALS: BP 156/75; PULSE 61; RESP 17; TEMP 36.8; O2SAT 96
[2022-11-23 04:00] VITALS: BP 147/70; PULSE 66; RESP 18; TEMP 36.8; O2SAT 96
[2022-11-23] MEDS: Glucose Gel 15 GM GEL..GRAM. PO (04:25)
[2022-11-23] MEDS: Dextrose 50 % 25 GM/50 ML SYRINGE IVPUSH (04:45)
[2022-11-23 04:56] LABS: Glucose, Whole Blood 23 mg/dL (60-115)
[2022-11-23 04:56] LABS: Glucose, Whole Blood 29 mg/dL (60-115)
[2022-11-23 04:56] LABS: Glucose, Whole Blood 28 mg/dL (60-115)
[2022-11-23 04:56] LABS: Glucose, Whole Blood 16 mg/dL (60-115)
[2022-11-23 04:56] LABS: Glucose, Whole Blood 21 mg/dL (60-115)
[2022-11-23 04:56] LABS: Glucose, Whole Blood 182 mg/dL (60-115)
--- NOTE | 2022-11-23 05:01 | PC.NURSE ---
Addendum entered by Darline Avila RN 11/23/22 05:58: Manager Reimbursement Marj was given an order for Dextrose IVP from Hospitalist Zeny Newton. Original Note: Pt noted sweating profusely, point of care done, point of care/glucose noted at 21, pt responing and talkative, Glucose Gel 15gm given orally, point of care/gluse noted at 28, supervisor paint roller covers contacted the hospitalist and order given for 50% Dextrose 25gm, med given at 0445, point of care 182, no distress noted will continue to monitor.
[2022-11-23] MEDS: oxyCODONE HCl Immed Release 5 MG TABLET 10 MG PO ×3 (05:57→21:06)
[2022-11-23 07:03] LABS: MANUAL DIFF FLAG NO
[2022-11-23 07:12] LABS: Basophils Percent Auto 1.4 % (0-2); Eosinophils Absolute Auto 0.1 X10*3/uL (0.0-0.4); Eosinophils Percent Auto 5.5 % (0-4); Hematocrit 32.3 % (42.0-52.0); Hemoglobin 10.5 g/dl (14.0-18.0); Imm Gran Abs Auto 0.01 X10*3/uL (0.00-0.03); Imm Gran Pct Auto 0.5 % (0.0-0.4); Lymphocytes Absolute Auto 0.5 X10*3/uL (1.2-4.9); Lymphocytes Percent Auto 24.7 % (20-40); Mean Corpuscular HGB Conc 32.5 g/dl (31.0-36.0); Mean Corpuscular Hemoglobin 30.6 pg (27.0-33.0); Mean Corpuscular Volume 94.2 fL (80.0-98.0); Mean Platelet Volume 10.7 fL (9.4-12.4); Monocytes Absolute Auto 0.2 X10*3/uL (0.1-1.2); Monocytes Percent Auto 7.8 % (2-11); Neutrophils Absolute Auto 1.3 x10*3/uL (2.0-8.3); Neutrophils Percent Auto 60.1 % (45-73); Platelet Count 125 X10*3/uL (160-400); Red Blood Count 3.43 X10*6/uL (4.60-5.80); Red Cell Distribution Width 14.8 % (11.0-16.0); SCAN SMEAR FLAG 1
[2022-11-23 07:16] LABS: PTT Heparin Drip 85.8 SEC (53-77.9)
[2022-11-23 07:18] LABS: White Blood Count 2.2 X10*3/uL (4.8-10.8)
[2022-11-23 07:50] LABS: Glucose, Whole Blood 95 mg/dL (60-115)
[2022-11-23 07:59] LABS: Alanine Aminotransferase < 5 U/L (0-40); Albumin Level 3.8 g/dL (3.5-5.0); Alkaline Phosphatase 59 U/L (39-117); Anion Gap 17 (12-20); Aspartate Amino Transferase 19 U/L (5-37); Bilirubin Total 0.8 mg/dL (0.0-1.0); Blood Urea Nitrogen 27 mg/dL (9-16); Calcium 8.8 mg/dL (8.4-10.2); Carbon Dioxide 27 mmol/L (22-29); Chloride 94 mmol/L (96-108); Creatinine Clr Calc Pharmacy 16.8; Estimated Glomerular Filt Rate 12; Glucose Fasting 100 mg/dL (60-99); Potassium 3.3 mmol/L (3.3-5.1); Sodium 135 mmol/L (135-145); Total Protein 7.2 g/dL (6.5-8.0)
[2022-11-23] MEDS: Aspirin Enteric Coated 81 MG TABLET.DR PO (08:07)
[2022-11-23] MEDS: Losartan Potassium 50 MG TABLET 100 MG PO ×2 (08:07→21:05)
[2022-11-23] MEDS: carvediloL 25 MG TABLET PO ×2 (08:08→21:05)
[2022-11-23] MEDS: hydrALAZINE HCl 50 MG TABLET PO ×2 (08:08→21:05)
[2022-11-23] MEDS: Multivitamin TABLET 1 TAB PO (08:08)
[2022-11-23] MEDS: DULoxetine HCl 60 MG CAPSULE.DR PO (08:08)
[2022-11-23] MEDS: Atorvastatin Calcium 80 MG TABLET PO (08:08)
[2022-11-23] MEDS: amLODIPine Besylate 10 MG TABLET PO (08:08)
--- NOTE | 2022-11-23 09:47 | CA_ITS ---
Acquisition Time: 2022-11-23 10:51:11 Total Exercise Time: 00:02:00 Test Indications: Syncope Medications: SEE EMAR Protocol: LEXISCAN Max HR: 087 BPM 54% of Pred: 160 BPM Max BP: 138/080 mmHG Max Work Load: 1.0 METS Pharmacological stress test with Lexiscan injection while sitting and kicking his legs, without anginal symptoms, with isolated PVCs, with normotensive response to injection. without EKG changes. Patient reports mild SOB and chest tiredness in recovery, Aminophylline 75mg IVP given to reverse Lexiscan. Nuclear images pending. Test reviewed with Dr. Thomas Referred By: Alec Thomas Overread By: MARCELINO DAILY
--- NOTE | 2022-11-23 10:24 | MHC.CM.PN ---
EMR REVIEWED, PT REMAINS ON HEPARIN DRIP, PER HOSPITALIST PLAN FOR LEXISCAN TODAY, NO PLAN FOR D/C AT THIS TIME, PLAN CONT'S TO BE FOR RETURN TO [facility] ONCE MEDICALLY CLEARED, CM WILL CONT TO FOLLOW D/C NEEDS.
[2022-11-23 10:36] LABS: Glucose, Whole Blood 96 mg/dL (60-115)
--- NOTE | 2022-11-23 11:27 | P.PNCA_ITS ---
Subjective Subjective Date of Service: 11/23/22 Principal diagnosis: NSTEMI, question syncope Interval history: No chest pain. Underwent dialysis today. Blood pressure is stable. Review of Systems Review of Systems Yes all other systems are reviewed and are negative Physical Exam Vital Signs: Last Vital Signs Temp 98.2 F 11/23/22 04:00 Pulse 66 11/23/22 04:00 Resp 18 11/23/22 04:00 BP 147/70 H 11/23/22 04:00 Pulse Ox 96 11/23/22 04:00 O2 Del Method Room Air 11/23/22 04:00 BMI result Body Mass Index 24.7 Const General: cooperative, comfortable, no acute distress, alert and awake Nutritional Appearance: average body habitus Orientation/consciousness: patient oriented x3 Limitations: no limitations Neck Neck: Yes trachea midline, Yes supple and Yes no JVD Chest Chest palpation & inspection: normal inspection of the chest Resp Effort & Inspection: normal respiratory effort Auscultation: clear to auscultation bilaterally Cardio Jugular venous distension: no JVD Palpation: normal PMI Rate: regular rate Rhythm: regular rhythm Heart sounds: S1 normal heart sound present, S2 normal heart sound present, no click, no gallops, no murmurs and no rubs GI Auscultation: normal bowel sounds Skin General skin exam: no rashes or lesions noted Neuro General: patient oriented x3 and no focal motor deficits Extrem General: Yes no clubbing, cyanosis or edema Objective Labs and Meds 11/23/22 06:42 11/23/22 06:42 Lab results: Laboratory Results - last 24 hr 11/22/22 11/22/22 11/22/22 11:23 16:09 19:16 WBC RBC Hgb Hct MCV MCH MCHC RDW Plt Count MPV Immature Gran % (Auto) Neut % (Auto) Lymph % (Auto) [place] % (Auto) Eos % (Auto) Baso % (Auto) Lymph # (Auto) [place] # (Auto) Eos # (Auto) Baso # (Auto) Abs Immat Gran (auto) Absolute Neuts (auto) Absolute Nucleated RBC Nucleated RBC % (auto) aPTT Heparin Protocol Sodium Potassium Chloride Carbon Dioxide Anion Gap BUN Creatinine Estim Creat Clear Calc Estimated GFR POC Glucose 407 H* 220 H 141 H Fasting Glucose Calcium Total Bilirubin AST ALT Alkaline Phosphatase Total Protein Albumin 11/23/22 11/23/2223 04:17 04:21 04:28 WBC RBC Hgb Hct MCV MCH MCHC RDW Plt Count MPV Immature Gran % (Auto) Neut % (Auto) Lymph % (Auto) [place] % (Auto) Eos % (Auto) Baso % (Auto) Lymph # (Auto) [place] # (Auto) Eos # (Auto) Baso # (Auto) Abs Immat Gran (auto) Absolute Neuts (auto) Absolute Nucleated RBC Nucleated RBC % (auto) aPTT Heparin Protocol Sodium Potassium Chloride Carbon Dioxide Anion Gap BUN Creatinine Estim Creat Clear Calc Estimated GFR POC Glucose 21 L* 16 L* 23 L* Fasting Glucose Calcium Total Bilirubin AST ALT Alkaline Phosphatase Total Protein Albumin 11/23/22 11/23/22 11/23/22 04:34 04:40 04:51 WBC RBC Hgb Hct MCV MCH MCHC RDW Plt Count MPV Immature Gran % (Auto) Neut % (Auto) Lymph % (Auto) [place] % (Auto) Eos % (Auto) Baso % (Auto) Lymph # (Auto) [place] # (Auto) Eos # (Auto) Baso # (Auto) Abs Immat Gran (auto) Absolute Neuts (auto) Absolute Nucleated RBC Nucleated RBC % (auto) aPTT Heparin Protocol Sodium Potassium Chloride Carbon Dioxide Anion Gap BUN Creatinine Estim Creat Clear Calc Estimated GFR POC Glucose 28 L* 29 L* 182 H Fasting Glucose Calcium Total Bilirubin AST ALT Alkaline Phosphatase Total Protein Albumin 11/23/22 11/23/22 11/23/22 06:42 06:42 06:42 WBC 2.2 L RBC 3.43 L Hgb 10.5 L Hct 32.3 L MCV 94.2 MCH 30.6 MCHC 32.5 RDW 14.8 Plt Count 125 L MPV 10.7 Immature Gran % (Auto) 0.5 H Neut % (Auto) 60.1 Lymph % (Auto) 24.7 [place] % (Auto) 7.8 Eos % (Auto) 5.5 H Baso % (Auto) 1.4 Lymph # (Auto) 0.5 L [place] # (Auto) 0.2 Eos # (Auto) 0.1 Baso # (Auto) 0.0 Abs Immat Gran (auto) 0.01 Absolute Neuts (auto) 1.3 L Absolute Nucleated RBC 0.000 Nucleated RBC % (auto) 0.0 aPTT Heparin Protocol 85.8 H Sodium 135 Potassium 3.3 D Chloride 94 L Carbon Dioxide 27 Anion Gap 17 BUN 27 H Creatinine 4.96 H* Estim Creat Clear Calc 16.8 Estimated GFR 12 POC Glucose Fasting Glucose 100 H Calcium 8.8 Total Bilirubin 0.8 AST 19 ALT < 5 Alkaline Phosphatase 59 Total Protein 7.2 Albumin 3.8 11/23/22 11/23/22 07:46 10:32 WBC RBC Hgb Hct MCV MCH MCHC RDW Plt Count MPV Immature Gran % (Auto) Neut % (Auto) Lymph % (Auto) [place] % (Auto) Eos % (Auto) Baso % (Auto) Lymph # (Auto) [place] # (Auto) Eos # (Auto) Baso # (Auto) Abs Immat Gran (auto) Absolute Neuts (auto) Absolute Nucleated RBC Nucleated RBC % (auto) aPTT Heparin Protocol Sodium Potassium Chloride Carbon Dioxide Anion Gap BUN Creatinine Estim Creat Clear Calc Estimated GFR POC Glucose 95 96 Fasting Glucose Calcium Total Bilirubin AST ALT Alkaline Phosphatase Total Protein Albumin Progress Note: A&P Assessment and plan (1) Non-ST elevated myocardial infarction (non-STEMI): Status: Acute Assessment and Plan: Patient present with loss of consciousness/altered mental status. Currently without any chest pain syndrome. Troponin elevation consistent with NSTEMI. Echocardiogram showed preserved LV ejection fraction without major wall motion abnormality. Will await the results of myocardial perfusion imaging to further guide treatment. If he has significant ischemia will need transfer to [facility] for cardiac catheterization. Will continue aspirin, statins and beta-[place] therapy. Will continue to follow with you after stress testing. Time Spent With Patient Time: Total time managing care of this patient today ____ minutes. Progress Note: Quality Stroke Does the patient have a stroke diagnosis?: No Procedures Date of Service Date of Service: 11/23/22
[2022-11-23 12:00] VITALS: BP 149/90; PULSE 69; RESP 20; TEMP 36.2; O2SAT 96
[2022-11-23 12:47] LABS: Glucose, Whole Blood 163 mg/dL (60-115)
[2022-11-23] MEDS: Insulin Lispro 100 UNIT/ML 3 ML VIAL SUBCUT ×3 (13:12→21:04)
[2022-11-23] MEDS: calcitrioL 0.25 MCG CAPSULE 1 MCG PO (13:14)
[2022-11-23 13:41] LABS: PTT Heparin Drip > 200.0 SEC (53-77.9)
[2022-11-23 15:11] LABS: PTT Heparin Drip 38.8 SEC (53-77.9)
[2022-11-23 15:31] VITALS: BP 153/85; PULSE 71; RESP 17; TEMP 36.8; O2SAT 94
[2022-11-23 16:08] LABS: Glucose, Whole Blood 289 mg/dL (60-115)
--- NOTE | 2022-11-23 16:19 | P.PNIM_ITS ---
Subjective Subjective Date of Service: 11/23/22 Interval History: No occurrence of chest pain. Lexiscan earlier today. Review of Systems Denies chest pain Denies shortness of breath Denies nausea vomiting diarrhea Denies fever chills Physical Exam Vital Signs: Vital Signs: Last Vital Signs Temp 98.3 F 11/23/22 15:31 Pulse 71 11/23/22 15:31 Resp 17 11/23/22 15:31 BP 153/85 H 11/23/22 15:31 Pulse Ox 94 11/23/22 15:31 O2 Del Method Room Air 11/23/22 15:31 BMI result Body Mass Index 24.7 Const: Other: Awake alert no acute distress Resp: Other: Clear to auscultation bilaterally no rales rhonchi or wheezes Cardio: Other: No S4; positive S1-S2; no S3 murmurs rubs or gallops Extrem: Other: No edema bilaterally Objective Data Active Medications Acetaminophen (Acetaminophen 325 Mg Tablet) 650 mg PO Q6H PRN PRN Reason: Fever Or Pain Last Admin: 11/20/22 22:46 Dose: 650 mg Documented By: MIGUEL Acetaminophen (Acetaminophen Supp 650 Mg Supp.Rect) 650 mg MS Q6H PRN PRN Reason: Fever Or Pain Amlodipine Besylate (Amlodipine Besylate 10 Mg Tablet) 10 mg PO DAILY [facility]; Protocol Last Admin: 11/23/22 08:08 Dose: 10 mg Documented By: MAULIK Aspirin (Aspirin Enteric Coated 81 Mg Tablet.) 81 mg PO DAILY [facility] Last Admin: 11/23/22 08:07 Dose: 81 mg Documented By: MAULIK Atorvastatin Calcium (Atorvastatin Calcium 80 Mg Tablet) 80 mg PO DAILY [facility] Last Admin: 11/23/22 08:08 Dose: 80 mg Documented By: MAULIK Bisacodyl (Bisacodyl 10 Mg Supp.Rect) 10 mg MS DAILY PRN PRN Reason: Constipation Calcitriol (Calcitriol 0.25 Mcg Capsule) 1 mcg PO MOWEFR [facility] Last Admin: 11/23/22 13:14 Dose: 1 mcg Documented By: MAULIK Carvedilol (Carvedilol 25 Mg Tablet) 25 mg PO BID [facility]; Protocol Last Admin: 11/23/22 08:08 Dose: 25 mg Documented By: MAULIK Clonidine (Clonidine 0.3 Mg Patch.Tdwk) 0.3 mg TRANSDERMA Q7D [facility]; Protocol Last Admin: 11/20/22 16:02 Dose: 0.3 mg Documented By: RANDI Docusate Sodium (Docusate Sodium 100 Mg Capsule) 100 mg PO BID [facility] Last Admin: 11/23/22 08:41 Dose: Not Given Documented By: MAULIK Non-Admin Reason: Patient Refused Duloxetine HCl (Duloxetine Hcl 60 Mg Capsule.) 60 mg PO DAILY [facility] Last Admin: 11/23/22 08:08 Dose: 60 mg Documented By: MAULIK Glucose (Glucose Gel 15 Gm Gel..Gram.) 20 gm PO Q15M PRN PRN Reason: BG < 60 Glucose (Glucose Gel 15 Gm Gel..Gram.) 15 gm PO Q15M PRN; Protocol PRN Reason: per Hypoglycemia Standing Ord. Last Admin: 11/23/22 04:25 Dose: 15 gm Documented By: MEHRAN Heparin Sodium (Porcine) (Heparin Sodium,Porcine 5,000 Unit/Ml Vial) 3,200 unit 40 unit/kg (3200 unit) IVPUSH PROTOCOL BOLUS PRN; Protocol PRN Reason: 40 unit/kg - Heparin Protocol Heparin Sodium (Porcine) (Heparin Sodium,Porcine 5,000 Unit/Ml Vial) 6,500 unit 80 unit/kg (6500 unit) IVPUSH PROTOCOL BOLUS PRN; Protocol PRN Reason: 80 unit/kg - Heparin Protocol Hydralazine HCl (Hydralazine Hcl 50 Mg Tablet) 50 mg PO BID [facility]; Protocol Last Admin: 11/23/22 08:08 Dose: 50 mg Documented By: MAULIK Heparin Sodium/Sodium Chloride (Heparin Sodium,Porcine/1/2ns) 25,000 unit in 250 mls @ 0 mls/hr IVCONT .Q0M [facility]; Protocol Last Titration: 11/23/22 15:50 Dose: 12 units/kg/hr, 9.73 mls/hr Documented By: MAULIK Co-signed By: RONEN Dextrose (D10) 250 mls @ 750 mls/hr IV Q15M PRN; Protocol PRN Reason: per Hypoglycemia Standing Ord. Insulin Glargine (Insulin Glargine,Hum.Rec.Anlog 100 Unit/Ml 10 Ml Vial) 6 unit SUBCUT BEDTIME [facility] Last Admin: 11/22/22 19:53 Dose: 6 unit Documented By: MEHRAN Insulin Human Lispro (Insulin Lispro 100 Unit/Ml 3 Ml Vial) 0 unit SUBCUT QIDACHS [facility]; Protocol Last Admin: 11/23/22 13:12 Dose: 2 unit Documented By: MAULIK Comments: pt was at stress test Insulin Human Lispro (Insulin Lispro 100 Unit/Ml 3 Ml Vial) 0 unit SUBCUT QIDACHS [facility]; Protocol Last Admin: 11/23/22 13:13 Dose: Not Given Documented By: MAULIK Non-Admin Reason: Duplicate Order Losartan Potassium (Losartan Potassium 50 Mg Tablet) 100 mg PO BID [facility]; Protocol Last Admin: 11/23/22 08:07 Dose: 100 mg Documented By: MAULIK Melatonin (Melatonin 3 Mg Tablet) 9 mg PO BEDTIME PRN PRN Reason: Sleep Mirtazapine (Mirtazapine 15 Mg Tablet) 15 mg PO BEDTIME [facility] Last Admin: 11/22/22 19:52 Dose: 15 mg Documented By: MEHRAN Multivitamins/Vitamin C (Multivitamin Tablet) 1 tab PO DAILY [facility] Last Admin: 11/23/22 08:08 Dose: 1 tab Documented By: MAULIK Oxycodone HCl (Oxycodone Hcl Immed Release 5 Mg Tablet) 10 mg PO Q4H PRN PRN Reason: Pain, Moderate(Pain Scale 4-6) Last Admin: 11/23/22 05:57 Dose: 10 mg Documented By: JOCE Pharmacy Consult (Consult Rx Perform Med Rec) 1 each MISCELLANE ONCE PRN PRN Reason: Consult order Polyethylene Glycol (Polyethylene Glycol 3350 17 Gm Powd.Pack) 17 gm PO DAILY [facility] Last Admin: 11/23/22 08:41 Dose: Not Given Documented By: MAULIK Non-Admin Reason: Patient Refused Sodium Chloride (0.9 % Sodium Chloride Flush 3 Ml Syringe) 3 ml IVFLUSH QSHIFT [facility] Last Admin: 11/23/22 13:15 Dose: Not Given Documented By: MAULIK Non-Admin Reason: Previously Administered Tamsulosin HCl (Tamsulosin Hcl 0.4 Mg Capsule) 0.4 mg PO BEDTIME [facility] Last Admin: 11/22/22 19:53 Dose: 0.4 mg Documented By: MEHRAN Labs 11/23/22 06:42 11/23/22 06:42 Labs: Laboratory Results - last 24 hr 11/22/22 11/22/22 11/23/22 11:23 19:16 04:17 MCV MCH MCHC RDW Plt Count MPV Immature Gran % (Auto) Neut % (Auto) Lymph % (Auto) [place] % (Auto) Eos % (Auto) Baso % (Auto) Lymph # (Auto) [place] # (Auto) Eos # (Auto) Baso # (Auto) Abs Immat Gran (auto) Absolute Neuts (auto) Absolute Nucleated RBC Nucleated RBC % (auto) Smear Path Review aPTT Heparin Protocol Anion Gap Estim Creat Clear Calc Estimated GFR POC Glucose Cancelled 141 H 21 L* Fasting Glucose Calcium Total Bilirubin AST ALT Alkaline Phosphatase Total Protein Albumin 11/23/22 11/23/22 11/23/22 04:21 04:28 04:34 MCV MCH MCHC RDW Plt Count MPV Immature Gran % (Auto) Neut % (Auto) Lymph % (Auto) [place] % (Auto) Eos % (Auto) Baso % (Auto) Lymph # (Auto) [place] # (Auto) Eos # (Auto) Baso # (Auto) Abs Immat Gran (auto) Absolute Neuts (auto) Absolute Nucleated RBC Nucleated RBC % (auto) Smear Path Review aPTT Heparin Protocol Anion Gap Estim Creat Clear Calc Estimated GFR POC Glucose 16 L* 23 L* 28 L* Fasting Glucose Calcium Total Bilirubin AST ALT Alkaline Phosphatase Total Protein Albumin 11/23/22 11/23/22 11/23/22 04:40 04:51 06:42 MCV MCH MCHC RDW Plt Count MPV Immature Gran % (Auto) Neut % (Auto) Lymph % (Auto) [place] % (Auto) Eos % (Auto) Baso % (Auto) Lymph # (Auto) [place] # (Auto) Eos # (Auto) Baso # (Auto) Abs Immat Gran (auto) Absolute Neuts (auto) Absolute Nucleated RBC Nucleated RBC % (auto) Smear Path Review aPTT Heparin Protocol 85.8 H Anion Gap Estim Creat Clear Calc Estimated GFR POC Glucose 29 L* 182 H Fasting Glucose Calcium Total Bilirubin AST ALT Alkaline Phosphatase Total Protein Albumin 0511/23/22 11/23/22 06:42 06:42 07:46 MCV 94.2 MCH 30.6 MCHC 32.5 RDW 14.8 Plt Count 125 L MPV 10.7 Immature Gran % (Auto) 0.5 H Neut % (Auto) 60.1 Lymph % (Auto) 24.7 [place] % (Auto) 7.8 Eos % (Auto) 5.5 H Baso % (Auto) 1.4 Lymph # (Auto) 0.5 L [place] # (Auto) 0.2 Eos # (Auto) 0.1 Baso # (Auto) 0.0 Abs Immat Gran (auto) 0.01 Absolute Neuts (auto) 1.3 L Absolute Nucleated RBC 0.000 Nucleated RBC % (auto) 0.0 Smear Path Review SEE NOTE aPTT Heparin Protocol Anion Gap 17 Estim Creat Clear Calc 16.8 Estimated GFR 12 POC Glucose 95 Fasting Glucose 100 H Calcium 8.8 Total Bilirubin 0.8 AST 19 ALT < 5 Alkaline Phosphatase 59 Total Protein 7.2 Albumin 3.8 11/23/22 11/23/22 11/23/22 10:32 12:43 12:45 MCV MCH MCHC RDW Plt Count MPV Immature Gran % (Auto) Neut % (Auto) Lymph % (Auto) [place] % (Auto) Eos % (Auto) Baso % (Auto) Lymph # (Auto) [place] # (Auto) Eos # (Auto) Baso # (Auto) Abs Immat Gran (auto) Absolute Neuts (auto) Absolute Nucleated RBC Nucleated RBC % (auto) Smear Path Review aPTT Heparin Protocol > 200.0 H* D Anion Gap Estim Creat Clear Calc Estimated GFR POC Glucose 96 163 H Fasting Glucose Calcium Total Bilirubin AST ALT Alkaline Phosphatase Total Protein Albumin 11/23/22 11/23/22 14:55 16:00 MCV MCH MCHC RDW Plt Count MPV Immature Gran % (Auto) Neut % (Auto) Lymph % (Auto) [place] % (Auto) Eos % (Auto) Baso % (Auto) Lymph # (Auto) [place] # (Auto) Eos # (Auto) Baso # (Auto) Abs Immat Gran (auto) Absolute Neuts (auto) Absolute Nucleated RBC Nucleated RBC % (auto) Smear Path Review aPTT Heparin Protocol 38.8 L D Anion Gap Estim Creat Clear Calc Estimated GFR POC Glucose 289 H Fasting Glucose Calcium Total Bilirubin AST ALT Alkaline Phosphatase Total Protein Albumin Assessment and Plan (1) Non-ST elevated myocardial infarction (non-STEMI): Status: Acute (2) Syncope and collapse: Status: Acute (3) End stage renal disease on dialysis: Status: Acute Plan 62 year old male with from SNF with with multiple chronic medical issues as listed above and including ESRD HD TuThSat, DM, HTN, dementia. He was brouht to ED to be evaluated for an unwintessed syncopal episode and is found to have NSTEMI. 1.NSTEMI -Lexiscan unremarkable -will DC heparin drip -ASA, BB, STatin and usual BP meds -DC in a.m. 2.Syncope -unclear etiology -asymptomatic since admit 3.ESRD -HD as ordered by renal -follow renals/divalents 4.HTN -increase hydralazine to 50 b.i.d. -adjust as indicated 5.Diabetes II -continue outpatient basal insulin -lispro correctional scale -adjust as indicated Full code Heparin Requires ongoing hospitalization to continue heparin drip and complete cardiac workup for NSTEMI #DVT prophylaxis--heparin #Small stephanie P. effusion, likely related to ESRD Full code Need for inpatient:or management of NSTEMI on iv heparin, syncope work up Time Spent With Patient Time: Total time managing care of this patient today ____ minutes. Quality Stroke Does the patient have a stroke diagnosis?: No VTE Prior VTE?: No VTE Risk Level:: Medical - moderate - high VTE Device Contraindication: Treatment Not Indicated VTE Drug Contraindication: N/A - Med Ordered
[2022-11-23] MEDS: Heparin Sodium,Porcine/1/2NS 25,000 UNIT/250 ML IV.SOLN 9.73 UNIT IVCONT (16:42)
--- NOTE | 2022-11-23 18:45 | PC.NURSE ---
pharmacy called and alerted this sports writer about an error in my implementation of heparin drip protocol. Drip was running at 10 units/kg/hr when appt came back at over 200. Drip was held adnm follow up blood draw scheduled. sports writer did not then decrease rate, once resumed, by 4. Follow up ptt required an increase of 2 un its/kg/hr, so sports writer set drip to 12 units/kg/hr. Search Engineer did check drip setting with floor educator. After the call from pharmacy, rate was set at 6 units/kg/hr and the next ptt was edited to be taken 2 hours later
[2022-11-23 19:09] VITALS: BP 137/71; PULSE 65; RESP 17; TEMP 36.9; O2SAT 96
[2022-11-23 20:25] LABS: Glucose, Whole Blood 200 mg/dL (60-115)
[2022-11-23] MEDS: Insulin Glargine,Hum.rec.anlog 100 UNIT/ML 10 ML VIAL 6 UNIT SUBCUT (21:04)
[2022-11-23] MEDS: Docusate Sodium 100 MG CAPSULE PO (21:05)
[2022-11-23] MEDS: Melatonin 3 MG TABLET 9 MG PO (21:05)
[2022-11-23] MEDS: Tamsulosin HCL 0.4 MG CAPSULE PO (21:05)
[2022-11-23] MEDS: Mirtazapine 15 MG TABLET PO (21:06)
--- NOTE | 2022-11-23 21:29 | P.PNNP_ITS ---
Subjective Subjective Date of Service: 11/23/22 Principal diagnosis: NSTEMI, question syncope Interval history: No occurrence of chest pain. Lexiscan earlier today. Physical Exam Vital Signs: Vital Signs: Last Vital Signs Temp 98.5 F 11/23/22 19:09 Pulse 65 11/23/22 19:09 Resp 17 11/23/22 19:09 BP 137/71 11/23/22 19:09 Pulse Ox 96 11/23/22 19:09 O2 Del Method Room Air 11/23/22 19:09 BMI result Body Mass Index 24.7 Const: Other: Awake alert no acute distress Resp: Other: Clear to auscultation bilaterally no rales rhonchi or wheezes Cardio: Other: No S4; positive S1-S2; no S3 murmurs rubs or gallops Extrem: Other: No edema bilaterally Objective Data Labs 11/23/22 06:42 11/23/22 06:42 Labs: Laboratory Results - last 24 hr 11/22/22 11/23/22 11/23/22 11:23 04:17 04:21 WBC RBC Hgb Hct MCV MCH MCHC RDW Plt Count MPV Immature Gran % (Auto) Neut % (Auto) Lymph % (Auto) [place] % (Auto) Eos % (Auto) Baso % (Auto) Lymph # (Auto) [place] # (Auto) Eos # (Auto) Baso # (Auto) Abs Immat Gran (auto) Absolute Neuts (auto) Absolute Nucleated RBC Nucleated RBC % (auto) Smear Path Review aPTT Heparin Protocol Sodium Potassium Chloride Carbon Dioxide Anion Gap BUN Creatinine Estim Creat Clear Calc Estimated GFR POC Glucose Cancelled 21 L* 16 L* Fasting Glucose Calcium Total Bilirubin AST ALT Alkaline Phosphatase Total Protein Albumin 11/23/22 11/23/22 11/23/22 04:28 04:34 04:40 WBC RBC Hgb Hct MCV MCH MCHC RDW Plt Count MPV Immature Gran % (Auto) Neut % (Auto) Lymph % (Auto) [place] % (Auto) Eos % (Auto) Baso % (Auto) Lymph # (Auto) [place] # (Auto) Eos # (Auto) Baso # (Auto) Abs Immat Gran (auto) Absolute Neuts (auto) Absolute Nucleated RBC Nucleated RBC % (auto) Smear Path Review aPTT Heparin Protocol Sodium Potassium Chloride Carbon Dioxide Anion Gap BUN Creatinine Estim Creat Clear Calc Estimated GFR POC Glucose 23 L* 28 L* 29 L* Fasting Glucose Calcium Total Bilirubin AST ALT Alkaline Phosphatase Total Protein Albumin 11/23/22 11/23/22 11/23/22 04:51 06:42 06:42 WBC 2.2 L RBC 3.43 L Hgb 10.5 L Hct 32.3 L MCV 94.2 MCH 30.6 MCHC 32.5 RDW 14.8 Plt Count 125 L MPV 10.7 Immature Gran % (Auto) 0.5 H Neut % (Auto) 60.1 Lymph % (Auto) 24.7 [place] % (Auto) 7.8 Eos % (Auto) 5.5 H Baso % (Auto) 1.4 Lymph # (Auto) 0.5 L [place] # (Auto) 0.2 Eos # (Auto) 0.1 Baso # (Auto) 0.0 Abs Immat Gran (auto) 0.01 Absolute Neuts (auto) 1.3 L Absolute Nucleated RBC 0.000 Nucleated RBC % (auto) 0.0 Smear Path Review SEE NOTE aPTT Heparin Protocol 85.8 H Sodium Potassium Chloride Carbon Dioxide Anion Gap BUN Creatinine Estim Creat Clear Calc Estimated GFR POC Glucose 182 H Fasting Glucose Calcium Total Bilirubin AST ALT Alkaline Phosphatase Total Protein Albumin 11/23/22 11/23/22 11/23/22 06:42 07:46 10:32 WBC RBC Hgb Hct MCV MCH MCHC RDW Plt Count MPV Immature Gran % (Auto) Neut % (Auto) Lymph % (Auto) [place] % (Auto) Eos % (Auto) Baso % (Auto) Lymph # (Auto) [place] # (Auto) Eos # (Auto) Baso # (Auto) Abs Immat Gran (auto) Absolute Neuts (auto) Absolute Nucleated RBC Nucleated RBC % (auto) Smear Path Review aPTT Heparin Protocol Sodium 135 Potassium 3.3 D Chloride 94 L Carbon Dioxide 27 Anion Gap 17 BUN 27 H Creatinine 4.96 H* Estim Creat Clear Calc 16.8 Estimated GFR 12 POC Glucose 95 96 Fasting Glucose 100 H Calcium 8.8 Total Bilirubin 0.8 AST 19 ALT < 5 Alkaline Phosphatase 59 Total Protein 7.2 Albumin 3.8 11/23/22 11/23/22 11/23/22 12:43 12:45 14:55 WBC RBC Hgb Hct MCV MCH MCHC RDW Plt Count MPV Immature Gran % (Auto) Neut % (Auto) Lymph % (Auto) [place] % (Auto) Eos % (Auto) Baso % (Auto) Lymph # (Auto) [place] # (Auto) Eos # (Auto) Baso # (Auto) Abs Immat Gran (auto) Absolute Neuts (auto) Absolute Nucleated RBC Nucleated RBC % (auto) Smear Path Review aPTT Heparin Protocol > 200.0 H* D 38.8 L D Sodium Potassium Chloride Carbon Dioxide Anion Gap BUN Creatinine Estim Creat Clear Calc Estimated GFR POC Glucose 163 H Fasting Glucose Calcium Total Bilirubin AST ALT Alkaline Phosphatase Total Protein Albumin 11/23/22 11/23/22 16:00 20:21 WBC RBC Hgb Hct MCV MCH MCHC RDW Plt Count MPV Immature Gran % (Auto) Neut % (Auto) Lymph % (Auto) [place] % (Auto) Eos % (Auto) Baso % (Auto) Lymph # (Auto) [place] # (Auto) Eos # (Auto) Baso # (Auto) Abs Immat Gran (auto) Absolute Neuts (auto) Absolute Nucleated RBC Nucleated RBC % (auto) Smear Path Review aPTT Heparin Protocol Sodium Potassium Chloride Carbon Dioxide Anion Gap BUN Creatinine Estim Creat Clear Calc Estimated GFR POC Glucose 289 H 200 H Fasting Glucose Calcium Total Bilirubin AST ALT Alkaline Phosphatase Total Protein Albumin Microbiology Microbiology Results: Microbiology 11/20/22 08:27 Blood - Venous Blood Culture - Preliminary No growth after 48 hours. 11/20/22 08:28 Blood - Venous Blood Culture - Preliminary No growth after 48 hours. Procedures Date of Service Date of Service: 11/23/22 Assessment & Plan Assessment and plan (1) End stage renal disease on dialysis: Status: Acute Plan ? 62-year-old man with ESRD admitted with change in mentation. Overall he has been well dialyzed. He has been compliant with his medications and dialysis treatments. Mild anemia due to ESRD. Hyponatremia due to decreased free water clearance. Continue with dialysis 3 times a week and optimize fluid status. Epogen for anemia as per protocol. We will follow along as needed. Thank you Time Spent With Patient Time: Total time managing care of this patient today ____ minutes. Progress Note: Quality Stroke Does the patient have a stroke diagnosis?: No
[2022-11-23 22:54] LABS: PTT Heparin Drip 41.9 SEC (53-77.9)
[2022-11-23] MEDS: Heparin Sodium,Porcine 5,000 UNIT/ML VIAL 3200 UNIT IVPUSH (23:17)
[2022-11-23 23:40] VITALS: BP 148/83; PULSE 67; RESP 18; TEMP 36.6; O2SAT 96
[2022-11-24 03:24] VITALS: BP 176/90; PULSE 62; RESP 18; TEMP 36.5; O2SAT 96
[2022-11-24 06:50] LABS: PTT Heparin Drip 56.1 SEC (53-77.9)
[2022-11-24 07:47] LABS: Glucose, Whole Blood 127 mg/dL (60-115)
[2022-11-24 08:00] VITALS: BP 160/96; PULSE 65; RESP 18; TEMP 36.6; O2SAT 97
[2022-11-24] MEDS: Multivitamin TABLET 1 TAB PO (08:20)
[2022-11-24] MEDS: Losartan Potassium 50 MG TABLET 100 MG PO (08:21)
[2022-11-24] MEDS: hydrALAZINE HCl 50 MG TABLET PO (08:21)
[2022-11-24] MEDS: DULoxetine HCl 60 MG CAPSULE.DR PO (08:21)
[2022-11-24] MEDS: Atorvastatin Calcium 80 MG TABLET PO (08:21)
[2022-11-24] MEDS: amLODIPine Besylate 10 MG TABLET PO (08:21)
[2022-11-24] MEDS: Docusate Sodium 100 MG CAPSULE PO (08:22)
[2022-11-24] MEDS: carvediloL 25 MG TABLET PO (08:22)
[2022-11-24] MEDS: Aspirin Enteric Coated 81 MG TABLET.DR PO (08:22)
[2022-11-24] MEDS: 0.9 % Sodium Chloride Flush 3 ML SYRINGE IVFLUSH (08:26)
[2022-11-24] MEDS: Heparin Sodium,Porcine/1/2NS 25,000 UNIT/250 ML IV.SOLN 6.49 UNIT IVCONT (08:31)
[2022-11-24] MEDS: oxyCODONE HCl Immed Release 5 MG TABLET 10 MG PO ×2 (08:38→16:42)
--- NOTE | 2022-11-24 09:32 | P.DS_ITS ---
DS: Providers Provider Date of Service: 11/24/22 Date of admission: 11/20/22 13:30 Date of discharge: 11/24/22 Primary care physician: JULIOCESAR SCHWARTZ Consults: 11/20/22 09:27 Consult to Cardiology Stat Consulting Provider: [facility] Reason for consultation: Syncope and elevated troponin Has provider been notified: Yes 11/20/22 14:00 Consult to Nephrology Routine Consulting Provider: Gus Villagran Reason for consultation: ESRD TuThSat DS: Diagnosis Discharge Diagnosis (1) Syncope and collapse: Status: Acute (2) End stage renal disease on dialysis: Status: Acute DS: Summary Hospital Course Hospital Course: 62 year old male with from SNF with with multiple chronic? medical issues as listed below and including ESRD HD TuThSat, DM, HTN, dementia. He was brouht to ED to be evaluated for an unwintessed syncopal episode. He was reportedly found unresponsive on the floor with no apparent injury.? He is presently alert but is not able to elaborate on what happened. ED work up CT head ? No acute pathology, cervical spine CT showed no acute fracture.? Checks x-ray showed a small bilateral pleural effusion.? Lab is noted for troponin I of a 1600 and has gone up to 2000.? He is not reporting any chest pain or shortness of breath.? His BNP is 2700.? He is due for dialysis today.? EKG showed nonspecific ST T wave changes.? ED physician has discussed the case with the mechanical systems designer and advised to start heparin.? also the patient was noted to have a temperature of 94 degrees and that was warmed? and temp is now 98,? no signs or symptoms of infection at this time. Hospital Course Admitted to telemetry where monitor failed to demonstrate any dysrhythmias. Initial workup demonstrated a troponin of 1611 for which heparin drip was initiated. He was seen in consultation by Cardiology; 2D echo demonstrated mildly reduced LV systolic function with LVEF 40-50% and a severely dilated left atrium there are no valvular abnormalities. Troponin peaked at 2019. On 11/23 patient underwent a Lexiscan; this demonstrated normal myocardial perfusion with a gated LVEF of 52%. He was seen in consultation by Nephrology who continued hemodialysis and outpatient intervals. Of note on arrival patient's blood sugar was 29 and responded to therapies. Cause of unresponsiveness determined to be hypoglycemia without cardiac origin. At this point time is medically acceptable to return to [facility] Time Spent with Patient Time attestation: Total time managing care of this patient today ____ minutes. Discharge coordination time: Greater than 30 minutes Quality: Safe Use of Opioids Does Pt have an Active Cancer Diagnosis on the Problem List?: No Quality: Stroke Does the patient have a stroke diagnosis?: No Physical Exam Vital Signs: Vital Signs: Last Vital Signs Temp 97.9 F 11/24/22 08:00 Pulse 65 11/24/22 08:00 Resp 18 11/24/22 08:00 BP 160/96 H 11/24/22 08:00 Pulse Ox 97 11/24/22 08:00 O2 Del Method Room Air 11/24/22 08:00 BMI result Body Mass Index 24.7 Const: Other: Awake alert no acute distress Resp: Other: Clear to auscultation bilaterally no rales rhonchi or wheezes Cardio: Other: No S4; positive S1-S2; no S3 murmurs rubs or gallops Extrem: Other: No edema bilaterally DS: Data Data Completed and Pending Completed studies during hospitalization [Text1]: Procedures Insertion of Endotracheal Airway into Trachea, Via Natural or Artificial Opening (06/17/22) Insertion of Infusion Device into Superior Vena Cava, Percutaneous Approach (06/17/22) Performance of Urinary Filtration, Intermittent, Less than 6 Hours Per Day (06/17/22) Respiratory Ventilation, 24-96 Consecutive Hours (06/17/22) Ultrasonography of Superior Vena Cava, Guidance (06/17/22) Labs on day of discharge: Laboratory Results - last 24 hr 11/22/22 11/23/22 11/23/22 11:23 06:42 10:32 Smear Path Review SEE NOTE aPTT Heparin Protocol POC Glucose Cancelled 96 11/23/22 11/23/22 11/23/22 12:43 12:45 14:55 Smear Path Review aPTT Heparin Protocol > 200.0 H* D 38.8 L D POC Glucose 163 H 11/23/22 11/23/22 11/23/22 16:00 20:21 22:40 Smear Path Review aPTT Heparin Protocol 41.9 L POC Glucose 289 H 200 H 11/24/22 11/24/22 06:12 07:43 Smear Path Review aPTT Heparin Protocol 56.1 D POC Glucose 127 H Preliminary micro results at discharge 11/20/22 08:27 Blood Culture - Preliminary Blood - Venous No growth after 48 hours. 11/20/22 08:28 Blood Culture - Preliminary Blood - Venous No growth after 48 hours. Discharge Plan Discharge Anticipated Discharge Date/Time: 11/24/22 09:27 Patient Disposition: Xfer [facility] Discharge Diagnosis: Syncope Referrals: JULIOCESAR SCHWARTZ [Primary Care Provider] - 1 Week Discharge Medications: New hydralazine 50 mg Tablet 50 mg PO BID Qty: 60 0RF Protocol: Hold for SBP< HOLD for SBP < : 90 aspirin 81 mg Tablet,Delayed Release (Dr/Ec) 81 mg PO DAILY Qty: 30 0RF Continued multivitamin Tablet 1 tab PO DAILY atorvastatin 80 mg tablet 1 tab PO DAILY carvedilol 25 mg tablet 1 tab PO BID tamsulosin 0.4 mg capsule 1 cap PO BEDTIME amlodipine 10 mg tablet 1 tab PO QAM calcitriol 0.5 mcg Capsule 1 mcg PO MOWEFR Rx Instructions: administer after dialysis on dialysis days mirtazapine 15 mg tablet 1 tab PO BEDTIME insulin lispro [Humalog U-100 Insulin] 100 unit/mL Solution 1 sliding scale dose SUBCUT USEASDIRECTD Protocol: Insulin Correction Scale Less than or equal to 110 ---- Give (units): 0 111 to 150 Give (units): 0 151 to 200 Give (units): 1 201 to 250 Give (units): 2 251 to 300 Give (units): 2 301 to 350 Give (units): 3 Greater than 350 Give (units): 3 Call MD if Blood Glucose > : 400 losartan 100 mg tablet 100 mg PO BID duloxetine 60 mg capsule,delayed release(DR/EC) 1 cap PO DAILY cholecalciferol (vitamin D3) 1,250 mcg (50,000 unit) Tablet 1,250 mcg PO QMONTH clonidine 0.3 mg/24 hr Patch Weekly 1 patch TRANSDERMAL Q7D Rx Instructions: on Saturday acetaminophen 325 mg Tablet 650 mg PO Q6H PRN (Reason: Fever Or Pain) acetaminophen 650 mg Suppository 650 mg NE Q6H PRN (Reason: Fever Or Pain) dextrose [Glucose Gel] 40 % Gel 20 g PO Q15M PRN (Reason: BG < 60) Rx Instructions: until symptoms of low blood sugar are controlled bisacodyl 10 mg Suppository 10 mg NE DAILY PRN (Reason: Constipation) Rx Instructions: use if MOM ineffective docusate sodium [Colace] 100 mg Capsule 100 mg PO BID polyethylene glycol 3350 [Miralax] 17 gram/dose Powder 17 g PO DAILY oxycodone 5 mg Tablet 5 mg PO Q6H PRN (Reason: Pain) naloxone 0.4 mg/mL Syringe 0.4 mg IM Q2M PRN (Reason: Opioid Reversal) Rx Instructions: NTExceed 10 mg total dose/episode insulin glargine [Lantus Solostar U-100 Insulin] 100 unit/mL (3 mL) Insulin Pen 6 unit SUBCUT QPM melatonin 5 mg Tablet 10 mg PO BEDTIME PRN (Reason: Sleep) Discontinued hydralazine 25 mg Tablet 25 mg PO TID 30 Days Qty: 90 0RF Protocol: Hold for SBP< HOLD for SBP < : 90 Discharge Orders: Discharge Order (Routine); Ordered 11/24/22 Ordered By: Aguilar Soares Diet: Advance to usual diet Activity on Discharge: As tolerated Stand Alone Forms: Patient Portal Discharge page Care Plan Goals: Continue all medicines as taken pre-hospital Health Concerns: Hydralazine changed to 50 b.i.d.; aspirin added Plan of Treatment: As per receiving facility Assessment: See discharge summary
[2022-11-24] MEDS: polyethylene glycoL 3350 17 GM POWD.PACK PO (09:36)
[2022-11-24 11:39] LABS: Glucose, Whole Blood 289 mg/dL (60-115)
[2022-11-24] MEDS: Insulin Lispro 100 UNIT/ML 3 ML VIAL SUBCUT ×2 (12:24→16:43)
== END 2022-11-24 17:42 | DRG 637 ==
LOC: HO.ED 13:29 → HO.EDOVER 13:43 → HO.IMC 19:28
PROVIDERS: Internal Medicine; Admitting Provider Internal Medicine; Emergency Provider Emergency Medicine; PCP Emergency Medicine; Visit Provider Hospitalist
DX: E10.649 Type 1 diabetes mellitus with hypoglycemia without coma (principal); G93.41 Metabolic encephalopathy; I12.0 Hypertensive chronic kidney disease with stage 5 chronic kidney disease or end stage renal disease; J91.8 Pleural effusion in other conditions classified elsewhere; E87.1 Hypo-osmolality and hyponatremia; N18.6 End stage renal disease; Z99.2 Dependence on renal dialysis; E10.22 Type 1 diabetes mellitus with diabetic chronic kidney disease; F03.90 Unspecified dementia, unspecified severity, without behavioral disturbance, psychotic disturbance, mood disturbance, and anxiety; R68.0 Hypothermia, not associated with low environmental temperature; D63.1 Anemia in chronic kidney disease; J44.9 Chronic obstructive pulmonary disease, unspecified; F17.210 Nicotine dependence, cigarettes, uncomplicated; Z20.822 Contact with and (suspected) exposure to COVID-19; Z71.6 Tobacco abuse counseling; Z79.82 Long term (current) use of aspirin; Z79.899 Other long term (current) drug therapy
CPT/HCPCS: 0241U; 36415; 70450; 71046; 72125; 78452; 80048; 80053; 80076; 80307; 82550; 82947; 83605; 83690; 83880; 84484; 85025; 85027; 85610; 85730; 87040; 87635; 90999; 93005; 93017; 93306; 99285; A9500; J0280; J0696; J1643; J2785

== ENCOUNTER 2022-12-12 04:10 | Emergency (ER) | payer OTHER, SELFPAY ==
[2022-12-12] VITALS (8 sets, daily range): BP systolic 143–189; BP diastolic 67–109; PULSE 58–64; RESP 12–20; TEMP 33–36.8; O2SAT 98–100; BMI 23.9
--- NOTE | ~2022-12-12 | XR_ITS ---
Examination: Bilateral hip with pelvis, lumbar spine dorsal spine. Clinical indications: Status post fall. COMPARISON: None. TECHNIQUE: Dorsal spine 3 views. Lumbar spine 3 views. AP pelvis and bilateral hip 5 views. FINDINGS: Dorsal spine. There is normal thoracic kyphosis. The vertebral heights, alignment and disc heights are normal. No visible acute fracture, dislocation or subluxation seen. The paravertebral soft tissues are normal. No aggressive lytic or sclerotic process seen. Lumbar spine: There is normal lumbar lordosis the vertebral heights, alignment and disc heights are normal. No visible acute fracture, dislocation or subluxation seen. The SI joints are symmetrical. There is a temperature electrode in the rectum. AP pelvis and bilateral hips: There is normal symmetry of bilateral hips and SI joints. There is no visible acute fracture, dislocation or subluxation. No bony erosive changes. There is no visible fracture or dislocation involving either hip joints. There is vascular calcification seen bilaterally. XR/XR thoracic spine 3V IMPRESSION: 1. Unremarkable dorsal spine exam. 2. Unremarkable lumbar spine exam. 3. Unremarkable AP pelvis and bilateral hip exam. No acute fracture or dislocation seen in either hip joints.
--- NOTE | ~2022-12-12 | CT_ITS ---
EXAMINATION: NONCONTRAST HEAD CT NONCONTRAST CERVICAL SPINE CT INDICATION INFORMATION: Fall. Neck pain. COMPARISON: 11/20/2022 TECHNIQUE: Separate noncontrast CT examinations of the head and cervical spine were performed. Coronal and sagittal images were created for each examination at the technologist workstation. This CT examination was performed using dose optimization techniques as appropriate, variously including the following: *Automated exposure control *Adjustment of mA and/or kV according to patient size (this includes techniques or standardized protocols for targeted exams where dose is matched to indication/reason for exam; i.e. extremities or head) *Use of iterative reconstruction technique DLP: 1131 mGy-cm FINDINGS: Head: There is no evidence of acute intracranial hemorrhage or territorial infarction. No abnormal mass effect or midline shift is seen. Zafar to white matter differentiation is well preserved. No extra-axial fluid collections are identified. No hydrocephalus. No significant volume loss. There is no abnormal attenuation within the brain parenchyma. No acute osseous or soft tissue abnormality. The mastoid air cells and visualized portions of the paranasal sinuses are well aerated. Cervical spine: There is anatomic alignment of the vertebral bodies and posterior elements. The atlantoaxial and atlantooccipital articulations are intact. Vertebral body heights and intervertebral disc spaces are maintained. No evidence of acute fracture. No prevertebral soft tissue swelling. Visualized portions of the lung apices are unremarkable. The thyroid gland is unremarkable. CT/CT head/brain wo IV con IMPRESSION: * No acute intracranial bleed or territorial infarction. * No acute fractures of the calvarium or cervical spine.
--- NOTE | ~2022-12-12 | CT_ITS ---
EXAMINATION: NONCONTRAST HEAD CT NONCONTRAST CERVICAL SPINE CT INDICATION INFORMATION: Fall. Neck pain. COMPARISON: 11/20/2022 TECHNIQUE: Separate noncontrast CT examinations of the head and cervical spine were performed. Coronal and sagittal images were created for each examination at the technologist workstation. This CT examination was performed using dose optimization techniques as appropriate, variously including the following: *Automated exposure control *Adjustment of mA and/or kV according to patient size (this includes techniques or standardized protocols for targeted exams where dose is matched to indication/reason for exam; i.e. extremities or head) *Use of iterative reconstruction technique DLP: 1131 mGy-cm FINDINGS: Head: There is no evidence of acute intracranial hemorrhage or territorial infarction. No abnormal mass effect or midline shift is seen. Zafar to white matter differentiation is well preserved. No extra-axial fluid collections are identified. No hydrocephalus. No significant volume loss. There is no abnormal attenuation within the brain parenchyma. No acute osseous or soft tissue abnormality. The mastoid air cells and visualized portions of the paranasal sinuses are well aerated. Cervical spine: There is anatomic alignment of the vertebral bodies and posterior elements. The atlantoaxial and atlantooccipital articulations are intact. Vertebral body heights and intervertebral disc spaces are maintained. No evidence of acute fracture. No prevertebral soft tissue swelling. Visualized portions of the lung apices are unremarkable. The thyroid gland is unremarkable. CT/CT cervical spine wo IV con IMPRESSION: * No acute intracranial bleed or territorial infarction. * No acute fractures of the calvarium or cervical spine.
--- NOTE | ~2022-12-12 | XR_ITS ---
EXAMINATION: XR CHEST CLINICAL INFORMATION: Fall COMPARISON: 11/20/2022 TECHNIQUE: Frontal view of the chest was obtained. FINDINGS: Normal symmetric lung volumes. No parenchymal consolidation. No pleural effusion. No pneumothorax. Cardiomediastinal silhouette and pulmonary vascularity are within normal limits. No acute osseous abnormalities. Chronic degenerative changes of the distal right clavicle, possibly an part remote posttraumatic. XR/XR chest 1V IMPRESSION: No acute findings.
--- NOTE | ~2022-12-12 | XR_ITS ---
Examination: Bilateral hip with pelvis, lumbar spine dorsal spine. Clinical indications: Status post fall. COMPARISON: None. TECHNIQUE: Dorsal spine 3 views. Lumbar spine 3 views. AP pelvis and bilateral hip 5 views. FINDINGS: Dorsal spine. There is normal thoracic kyphosis. The vertebral heights, alignment and disc heights are normal. No visible acute fracture, dislocation or subluxation seen. The paravertebral soft tissues are normal. No aggressive lytic or sclerotic process seen. Lumbar spine: There is normal lumbar lordosis the vertebral heights, alignment and disc heights are normal. No visible acute fracture, dislocation or subluxation seen. The SI joints are symmetrical. There is a temperature electrode in the rectum. AP pelvis and bilateral hips: There is normal symmetry of bilateral hips and SI joints. There is no visible acute fracture, dislocation or subluxation. No bony erosive changes. There is no visible fracture or dislocation involving either hip joints. There is vascular calcification seen bilaterally. XR/XR hip BI w PEL1V IMPRESSION: 1. Unremarkable dorsal spine exam. 2. Unremarkable lumbar spine exam. 3. Unremarkable AP pelvis and bilateral hip exam. No acute fracture or dislocation seen in either hip joints.
--- NOTE | ~2022-12-12 | XR_ITS ---
Examination: Bilateral hip with pelvis, lumbar spine dorsal spine. Clinical indications: Status post fall. COMPARISON: None. TECHNIQUE: Dorsal spine 3 views. Lumbar spine 3 views. AP pelvis and bilateral hip 5 views. FINDINGS: Dorsal spine. There is normal thoracic kyphosis. The vertebral heights, alignment and disc heights are normal. No visible acute fracture, dislocation or subluxation seen. The paravertebral soft tissues are normal. No aggressive lytic or sclerotic process seen. Lumbar spine: There is normal lumbar lordosis the vertebral heights, alignment and disc heights are normal. No visible acute fracture, dislocation or subluxation seen. The SI joints are symmetrical. There is a temperature electrode in the rectum. AP pelvis and bilateral hips: There is normal symmetry of bilateral hips and SI joints. There is no visible acute fracture, dislocation or subluxation. No bony erosive changes. There is no visible fracture or dislocation involving either hip joints. There is vascular calcification seen bilaterally. XR/XR lumbar spine 2-3V IMPRESSION: 1. Unremarkable dorsal spine exam. 2. Unremarkable lumbar spine exam. 3. Unremarkable AP pelvis and bilateral hip exam. No acute fracture or dislocation seen in either hip joints.
[2022-12-12 04:30] LABS: Glucose, Whole Blood 151 mg/dL (60-115)
--- NOTE | 2022-12-12 04:38 | ECG_ITS ---
Test Reason : FALL Blood Pressure : / mmHG Vent. Rate : 058 BPM Atrial Rate : 058 BPM P-R Int : 150 ms QRS Dur : 100 ms QT Int : 488 ms P-R-T Axes : 075 033 014 degrees QTc Int : 479 ms Sinus bradycardia Otherwise normal ECG When compared with ECG of 21-NOV-2022 15:39, Nonspecific T wave abnormality now evident in Lateral leads Referred By: Farheen Lo Electronically Signed By:MADAI NELSON
--- NOTE | 2022-12-12 04:43 | PC.NURSE ---
Assumed care of pt. Pt transferred to stretcher [facility], c-collar in place. Pt only stating that he is cold. [facility] sent documentation with pt indicating hx of dementia, renal failure ( dialysis) and notes indicating pt was found shortly before arrival to ED in kneeling posintion on floor with face on ground with presumed fall, unwitnessed and unknown downtime. Pt moving att extremities at this time, AV fistula in place on L arm with +/. VSS, required rectal temp d/t hypothermia. made aware for possible imaging. Plan for IV/labs.
--- NOTE | 2022-12-12 05:17 | PC.NURSE ---
Given pt hypothermic temp, placed on Shanae Hugger for temperature normalization. aware.
[2022-12-12 05:45] LABS: MANUAL DIFF FLAG NO
[2022-12-12 05:46] LABS: Basophils Percent Auto 0.7 % (0-2); Eosinophils Absolute Auto 0.2 X10*3/uL (0.0-0.4); Eosinophils Percent Auto 3.5 % (0-4); Hematocrit 34.5 % (42.0-52.0); Hemoglobin 11.6 g/dl (14.0-18.0); Imm Gran Abs Auto 0.01 X10*3/uL (0.00-0.03); Imm Gran Pct Auto 0.2 % (0.0-0.4); Lymphocytes Absolute Auto 0.6 X10*3/uL (1.2-4.9); Lymphocytes Percent Auto 13.5 % (20-40); Mean Corpuscular HGB Conc 33.6 g/dl (31.0-36.0); Mean Corpuscular Volume 92.2 fL (80.0-98.0); Mean Platelet Volume 9.4 fL (9.4-12.4); Monocytes Absolute Auto 0.2 X10*3/uL (0.1-1.2); Monocytes Percent Auto 5.3 % (2-11); Neutrophils Absolute Auto 3.5 x10*3/uL (2.0-8.3); Neutrophils Percent Auto 76.8 % (45-73); Platelet Count 101 X10*3/uL (160-400); Red Blood Count 3.74 X10*6/uL (4.60-5.80); White Blood Count 4.5 X10*3/uL (4.8-10.8)
[2022-12-12 06:06] LABS: Troponin-I High Sensitivity 13.8 ng/L (<3.5-35.0)
[2022-12-12 06:12] LABS: Alanine Aminotransferase 10 U/L (0-40); Albumin Level 3.9 g/dL (3.5-5.0); Alkaline Phosphatase 69 U/L (39-117); Anion Gap 13 (12-20); Aspartate Amino Transferase 23 U/L (5-37); Bilirubin Direct 0.2 mg/dL (0.0-0.5); Bilirubin Total 0.6 mg/dL (0.0-1.0); Blood Urea Nitrogen 16 mg/dL (9-16); Calcium 9.2 mg/dL (8.4-10.2); Carbon Dioxide 29 mmol/L (22-29); Chloride 91 mmol/L (96-108); Creatinine Clr Calc Pharmacy 17.2; Estimated Glomerular Filt Rate 12; Glucose Random 183 mg/dL (60-115); Lipase 12 U/L (8-78); Potassium 3.9 mmol/L (3.3-5.1); Sodium 129 mmol/L (135-145); Total Protein 7.4 g/dL (6.5-8.0)
--- NOTE | 2022-12-12 07:32 | PC.NURSE ---
Alert with some confusion. Temp 94.8, continues of Shanae zacarias. reports chronic back pain and that he has spinal stenosis. states dialysis stevee, flora, sat and that he completed his treatment yesterday, does not recall how he fell at [facility].
[2022-12-12 08:05] LABS: Ammonia 29 umol/L (13-55)
--- NOTE | 2022-12-12 08:07 | PC.NURSE ---
positive bruit and thrill in left av fistula. labs drawn per order.
[2022-12-12 08:09] LABS: Lactic Acid 0.8 mmol/L (0.5-2.0)
[2022-12-12 08:39] LABS: TSH reflex Free T4 3.41 uIU/mL (0.32-4.0)
--- NOTE | 2022-12-12 08:39 | ED_ITS ---
HPI - General Adult General Chief complaint: Fall Stated complaint: UNWIT FALL,BS 57,MUMBLES PER EMS Time Seen by Provider: 12/12/22 06:29 Source: patient and old records reviewed Mode of arrival: EMS Limitations: other (dementia) History of Present Illness HPI narrative: This is a 62-year-old male, poor historian, with a past medical history of ESRD hemodialysis //Sat, DM, HTN, hep C, spinal stenosis, and dementia, who [facility]itness[facility]. Per EMS, patient was found on the ground with his head resting on the floor. It is unclear how long he was on the ground for. Pt is alert but is only oriented to self. He is unsure of the events that led him to the hospital, he is aware that the ambulance had taken him here. The only complaint he had on arrival was he was feeling cold. He denies any headaches, chest pain, shortness of breath, abdominal pain. MD complaint: Fall Onset (ago): day(s) Related Data Home Medications Medication Instructions Recorded Confirmed amlodipine 10 mg tablet 1 tab PO QAM 06/17/22 11/20/22 atorvastatin 80 mg tablet 1 tab PO DAILY 06/17/22 11/20/22 calcitriol 0.5 mcg capsule 1 mcg PO MOWEFR 06/17/22 11/20/22 carvedilol 25 mg tablet 1 tab PO BID 06/17/22 11/20/22 cholecalciferol (vitamin D3) 1,250 1,250 mcg PO QMONTH 06/17/22 11/20/22 mcg (50,000 unit) tablet duloxetine 60 mg capsule,delayed 1 cap PO DAILY 06/17/22 11/20/22 release insulin lispro 100 unit/mL 1 sliding scale dose subcut 06/17/22 11/20/22 subcutaneous solution (Humalog USEASDIRECTD U-100 Insulin) losartan 100 mg tablet 100 mg PO BID 06/17/22 11/20/22 mirtazapine 15 mg tablet 1 tab PO BEDTIME 06/17/22 11/20/22 multivitamin 1 tab PO DAILY 06/17/22 11/20/22 tamsulosin 0.4 mg capsule 1 cap PO BEDTIME 06/17/22 11/20/22 acetaminophen 325 mg tablet 650 mg PO Q6H PRN Fever Or Pain 11/20/22 11/20/22 acetaminophen 650 mg rectal 650 mg NJ Q6H PRN Fever Or Pain 11/20/22 11/20/22 suppository bisacodyl 10 mg rectal suppository 10 mg NJ DAILY PRN Constipation 11/20/22 11/20/22 clonidine 0.3 mg/24 hr weekly 1 patch transdermal Q7D 11/20/22 11/20/22 transdermal patch dextrose 40 % oral gel (Glucose 20 g PO Q15M PRN BG < 60 11/20/22 11/20/22 Gel) docusate sodium 100 mg capsule 100 mg PO BID 11/20/22 11/20/22 (Colace) insulin glargine 100 unit/mL (3 6 unit subcut QPM 11/20/22 11/20/22 mL) subcutaneous pen (Lantus Solostar U-100 Insulin) melatonin 5 mg tablet 10 mg PO BEDTIME PRN Sleep 11/20/22 11/20/22 naloxone 0.4 mg/mL injection 0.4 mg IM Q2M PRN Opioid Reversal 11/20/22 11/20/22 syringe oxycodone 5 mg tablet 5 mg PO Q6H PRN Pain 11/20/22 11/20/22 polyethylene glycol 3350 17 17 g PO DAILY 11/20/22 11/20/22 gram/dose oral powder (Miralax) Previous Rx's Medication Instructions Recorded aspirin 81 mg tablet,delayed 81 mg PO DAILY #30 tabs 11/24/22 release hydralazine 50 mg tablet 50 mg PO BID #60 tabs 11/24/22 Allergies Allergy/AdvReac Type Severity Reaction Status Date / Time No Known Allergies Allergy Verified 06/17/22 08:41 Review of Systems Review of Systems: Yes Unobtainable due to mental condition (baseline dementia) Constitutional: Constitutional: Reports as per HPI Neurologic: Reports confusion Psychiatric: Psychiatric: Reports confusion [facility] Past Medical History Attestation statement: The following information was validated with the patient. Medical History Anemia Atrial fibrillation Bacteremia Benign prostate hyperplasia Cellulitis Constipation COPD (chronic obstructive pulmonary disease) Dementia Diabetes mellitus type 1 Dysphagia End stage renal disease on dialysis ESRD (end stage renal disease) on dialysis Gastrointestinal hemorrhage Hepatitis C Hyperkalemia Hyperlipemia Hypernatremia Hyperparathyroidism Hypertension Hypertensive cardiopathy Major depressive disorder Nicotine dependence Osteoarthritis Peripheral vascular disease Sepsis Septic shock Streptococcal sepsis, unspecified Systolic CHF Urine retention Vitamin D deficiency Social History Social History Household Members: Other Household Members Other:: residential Housing: Skilled Nursing Do you presently have visiting nurse or other home services: Yes Unable to assess alcohol history related to: Unable to respond Alcohol intake: never Patient Tobacco Use Status: Current everyday Tobacco user Tobacco use type: Cigarette Smoked in Last 30 Days: Yes Second Hand Smoke Exposure: No Use of substances other than those prescribed or required for medical reasons: No Advance Directives: Yes Advance Directives on File: Yes Advance Directives Date on File: 06/22/22 service: No Current occupational status: disabled Physical Exam ED Vital Signs: Vital Signs - 24 hr 12/12/22 04:21 12/12/22 04:21 12/12/22 05:31 Temperature 91.5 F L 91.4 F L Pulse Rate 58 59 Respiratory Rate 20 18 Blood Pressure 183/100 H 183/100 H Pulse Oximetry 99 Oxygen Delivery Method Room Air 12/12/22 06:00 12/12/22 08:06 12/12/22 09:24 Temperature 93.6 F L 95.7 F L 97.3 F Pulse Rate 58 59 61 Respiratory Rate 18 18 16 Blood Pressure 189/109 H 155/88 H 146/82 H Pulse Oximetry 98 99 98 Oxygen Delivery Method Room Air Room Air Room Air 12/12/22 10:43 12/12/22 11:33 12/12/22 13:14 Temperature 98.2 F Pulse Rate 61 64 64 Respiratory Rate 16 12 16 Blood Pressure 148/80 H 157/70 H 143/67 H Pulse Oximetry 99 98 99 Oxygen Delivery Method Room Air Room Air Room Air BMI result Body Mass Index 23.9 Const General: cooperative, comfortable and confusion Orientation/consciousness: oriented to person and confusion Limitations: other limitations (dementia) HENMT Head: Yes normal to inspection, Yes normocephalic and Yes atraumatic Ears: hearing grossly normal bilaterally, external ears normal and other (TMs with bilateral cerumen impaction noted. ) General nose exam: Normal external nose present Face and sinus: Yes normal facial exam Mouth: Normal oral and palatal mucosa present, tongue normal, oropharynx normal and moist mucous membranes Throat: Yes posterior oropharynx normal Eyes General: appearance normal, both eyes and all related structures Eyelids: Yes eyelids normal Conjunctivae: conjunctivae normal Sclerae: sclerae normal Pupils: Equal, round and reactive pupils present EOM: EOMs intact bilaterally Neck Other: No c spine tenderness. No cervical paraspinous muscle tenderness. good ROM of the neck, no nugal rigidity. Neck: Yes normal visual inspection, Yes full ROM and Yes no lymphadenopathy Lymphatic: no lymphadenopathy noted Chest Chest palpation & inspection: normal inspection of the chest and normal palpation of entire chest wall Resp Effort & Inspection: normal respiratory effort and able to speak in complete sentences Auscultation: clear to auscultation bilaterally, no crackles, no rales, no rhonchi and no wheezes Cardio Rate: regular rate Rhythm: regular rhythm Heart sounds: S1 normal heart sound present and S2 normal heart sound present GI Inspection: Yes normal to inspection Palpation (GI): Soft to palpation, nontender and no guarding Auscultation: normal bowel sounds Back/Spine/Pelvis Other: Tenderness to palpation along the thoracic spine, with palpable thoracic paraspinous muscle spasms. Skin General skin exam: no rashes or lesions noted Trauma: no lacerations or abrasions Wounds: no wounds Neuro General: oriented to person, moves all extremities and confusion Cranial nerves: Yes Equal, round and reactive pupils present Extrem General: Yes normal to inspection Right upper extremity: normal to inspection Left upper extremity: normal to inspection Right lower extremity: normal to inspection Left lower extremity: normal to inspection Course Reevaluation(s) Reevaluation #1: pt more alert, temperature 97.2 rectally. Took off bear hugger and will monitor temperature to see if he maintains. [facility] to [facility] to see what patient's baseline is. Time: 09:33 Time: 10:14 Reevaluation #3: Pt re-evaluated. reporting only back pain, typical of his chronic back pain - spinal stenosis. He is alert and oriented x 3. He recalls going to bed last night but does not remember any falls or remember being on the ground. His vital signs are stable, and he is no longer hypothermic. Patient has no lactic acidosis, normal WBC, no CT head/neck findings, normocytic anemia. Creatinine is at his baseline, POC 151, hyponatremic at 129, chloride 91, TSH WNL, random cortisol 20.2. Xrays nondiagnostic. Given patient is alert & oriented x3, with VSS, no longer hypothermic, patient is stable to be discharged back [facility]. Time: 12:24 Medications Administered Discontinued Medications Generic Name Dose Route Start Last Admin Trade Name Jackie PRN Reason Stop Dose Admin Acetaminophen 975 mg 12/12/22 09:30 12/12/22 09:36 Acetaminophen 325 Mg Tablet PO 12/12/22 09:31 975 mg ONCE ONE Administration Medical Decision Making Medical Decision Making MDM Narrative: 62 y/o M, poor historian, with a past medical history of ESRD hemodialysis //Sat, DM, HTN, and dementia, who presents to the emergency department [facility] due to [facility]itnessed [facility]. It is unclear how long he was on the floor for. Nursing staff made multiple attempts to reach out to the facility however unable to get ahold of staff for full report. On arrival, pt found to be hypothermic at 91.5 rectally, BP 183/100. He was placed on a bear hugger. Temperature improved to 95.7F, blood pressure improved to 155/88. Patient is alert and oriented to self only. Labs revealing WBC 4.5k, normocytic anemia around his baseline, hyponatremic at 129, chloride 91. Creatinine 4.85 which appears to be at his baseline. Differential Diagnosis Differential Diagnoses: The differential diagnosis associated with the presentation includes metabolic encephalopathy, hyponatremia, ICH, subdural hemorrhage, rhabdomlysis Admission/Observation Consideration of admission/observation: Escalation of care including admission/observation considered Lab Data [facility] Lab Attestation statement: I reviewed the patient's lab results. see course comments 12/12/22 05:42 12/12/22 05:42 Labs: Lab Results 12/12/22 12/12/22 12/12/22 Range/Units 04:17 05:42 05:42 WBC 4.5 L (4.8-10.8) X10*3/uL RBC 3.74 L (4.60-5.80) X10*6/uL Hgb 11.6 L (14.0-18.0) g/dl Hct 34.5 L (42.0-52.0) % MCV 92.2 (80.0-98.0) fL MCH 31.0 (27.0-33.0) pg MCHC 33.6 (31.0-36.0) g/dl RDW 15.0 (11.0-16.0) % Plt Count 101 L (160-400) X10*3/uL MPV 9.4 (9.4-12.4) fL Immature Gran % (Auto) 0.2 (0.0-0.4) % Neut % (Auto) 76.8 H (45-73) % Lymph % (Auto) 13.5 L (20-40) % [place] % (Auto) 5.3 (2-11) % Eos % (Auto) 3.5 (0-4) % Baso % (Auto) 0.7 (0-2) % Lymph # (Auto) 0.6 L (1.2-4.9) X10*3/uL [place] # (Auto) 0.2 (0.1-1.2) X10*3/uL Eos # (Auto) 0.2 (0.0-0.4) X10*3/uL Baso # (Auto) 0.0 (0.0-0.2) X10*3/uL Abs Immat Gran (auto) 0.01 (0.00-0.03) X10*3/uL Absolute Neuts (auto) 3.5 (2.0-8.3) x10*3/uL Absolute Nucleated RBC 0.000 (0.0-0.012) X10*3/uL Nucleated RBC % (auto) 0.0 (0.0-0.2) /100WBC Sodium 129 L (135-145) mmol/L Potassium 3.9 (3.3-5.1) mmol/L Chloride 91 L (96-108) mmol/L Carbon Dioxide 29 (22-29) mmol/L Anion Gap 13 (12-20) BUN 16 (9-16) mg/dL Creatinine 4.85 H* (0.5-1.4) mg/dL Estim Creat Clear Calc 17.2 Estimated GFR 12 POC Glucose 151 H (60-115) mg/dL Random Glucose 183 H (60-115) mg/dL Lactic Acid (0.5-2.0) mmol/L Calcium 9.2 (8.4-10.2) mg/dL Total Bilirubin 0.6 (0.0-1.0) mg/dL Direct Bilirubin 0.2 (0.0-0.5) mg/dL AST 23 (5-37) U/L ALT 10 (0-40) U/L Alkaline Phosphatase 69 (39-117) U/L Ammonia (13-55) umol/L Total Creatine Kinase 86 (38-174) U/L Troponin I High Sens (<3.5-35.0) ng/L Total Protein 7.4 (6.5-8.0) g/dL Albumin 3.9 (3.5-5.0) g/dL Lipase 12 (8-78) U/L TSH 3.41 (0.32-4.0) uIU/mL Free Cortisol Random Cortisol ug/dL 12/12/22 12/12/22 12/12/22 Range/Units 05:42 05:42 07:53 WBC (4.8-10.8) X10*3/uL RBC (4.60-5.80) X10*6/uL Hgb (14.0-18.0) g/dl Hct (42.0-52.0) % MCV (80.0-98.0) fL MCH (27.0-33.0) pg MCHC (31.0-36.0) g/dl RDW (11.0-16.0) % Plt Count (160-400) X10*3/uL MPV (9.4-12.4) fL Immature Gran % (Auto) (0.0-0.4) % Neut % (Auto) (45-73) % Lymph % (Auto) (20-40) % [place] % (Auto) (2-11) % Eos % (Auto) (0-4) % Baso % (Auto) (0-2) % Lymph # (Auto) (1.2-4.9) X10*3/uL [place] # (Auto) (0.1-1.2) X10*3/uL Eos # (Auto) (0.0-0.4) X10*3/uL Baso # (Auto) (0.0-0.2) X10*3/uL Abs Immat Gran (auto) (0.00-0.03) X10*3/uL Absolute Neuts (auto) (2.0-8.3) x10*3/uL Absolute Nucleated RBC (0.0-0.012) X10*3/uL Nucleated RBC % (auto) (0.0-0.2) /100WBC Sodium (135-145) mmol/L Potassium (3.3-5.1) mmol/L Chloride (96-108) mmol/L Carbon Dioxide (22-29) mmol/L Anion Gap (12-20) BUN (9-16) mg/dL Creatinine (0.5-1.4) mg/dL Estim Creat Clear Calc Estimated GFR POC Glucose (60-115) mg/dL Random Glucose (60-115) mg/dL Lactic Acid 0.8 (0.5-2.0) mmol/L Calcium (8.4-10.2) mg/dL Total Bilirubin (0.0-1.0) mg/dL Direct Bilirubin (0.0-0.5) mg/dL AST (5-37) U/L ALT (0-40) U/L Alkaline Phosphatase (39-117) U/L Ammonia (13-55) umol/L Total Creatine Kinase (38-174) U/L Troponin I High Sens 13.8 D (<3.5-35.0) ng/L Total Protein (6.5-8.0) g/dL Albumin (3.5-5.0) g/dL Lipase (8-78) U/L TSH (0.32-4.0) uIU/mL Free Cortisol Random Cortisol 20.2 ug/dL 12/12/22 12/12/22 12/12/22 Range/Units 07:53 07:54 07:54 WBC (4.8-10.8) X10*3/uL RBC (4.60-5.80) X10*6/uL Hgb (14.0-18.0) g/dl Hct (42.0-52.0) % MCV (80.0-98.0) fL MCH (27.0-33.0) pg MCHC (31.0-36.0) g/dl RDW (11.0-16.0) % Plt Count (160-400) X10*3/uL MPV (9.4-12.4) fL Immature Gran % (Auto) (0.0-0.4) % Neut % (Auto) (45-73) % Lymph % (Auto) (20-40) % [place] % (Auto) (2-11) % Eos % (Auto) (0-4) % Baso % (Auto) (0-2) % Lymph # (Auto) (1.2-4.9) X10*3/uL [place] # (Auto) (0.1-1.2) X10*3/uL Eos # (Auto) (0.0-0.4) X10*3/uL Baso # (Auto) (0.0-0.2) X10*3/uL Abs Immat Gran (auto) (0.00-0.03) X10*3/uL Absolute Neuts (auto) (2.0-8.3) x10*3/uL Absolute Nucleated RBC (0.0-0.012) X10*3/uL Nucleated RBC % (auto) (0.0-0.2) /100WBC Sodium (135-145) mmol/L Potassium (3.3-5.1) mmol/L Chloride (96-108) mmol/L Carbon Dioxide (22-29) mmol/L Anion Gap (12-20) BUN (9-16) mg/dL Creatinine (0.5-1.4) mg/dL Estim Creat Clear Calc Estimated GFR POC Glucose (60-115) mg/dL Random Glucose (60-115) mg/dL Lactic Acid (0.5-2.0) mmol/L Calcium (8.4-10.2) mg/dL Total Bilirubin (0.0-1.0) mg/dL Direct Bilirubin (0.0-0.5) mg/dL AST (5-37) U/L ALT (0-40) U/L Alkaline Phosphatase (39-117) U/L Ammonia 29 (13-55) umol/L Total Creatine Kinase (38-174) U/L Troponin I High Sens (<3.5-35.0) ng/L Total Protein (6.5-8.0) g/dL Albumin (3.5-5.0) g/dL Lipase (8-78) U/L TSH Cancelled (0.32-4.0) uIU/mL Free Cortisol Cancelled Random Cortisol ug/dL 12/12/22 Range/Units 11:42 WBC (4.8-10.8) X10*3/uL RBC (4.60-5.80) X10*6/uL Hgb (14.0-18.0) g/dl Hct (42.0-52.0) % MCV (80.0-98.0) fL MCH (27.0-33.0) pg MCHC (31.0-36.0) g/dl RDW (11.0-16.0) % Plt Count (160-400) X10*3/uL MPV (9.4-12.4) fL Immature Gran % (Auto) (0.0-0.4) % Neut % (Auto) (45-73) % Lymph % (Auto) (20-40) % [place] % (Auto) (2-11) % Eos % (Auto) (0-4) % Baso % (Auto) (0-2) % Lymph # (Auto) (1.2-4.9) X10*3/uL [place] # (Auto) (0.1-1.2) X10*3/uL Eos # (Auto) (0.0-0.4) X10*3/uL Baso # (Auto) (0.0-0.2) X10*3/uL Abs Immat Gran (auto) (0.00-0.03) X10*3/uL Absolute Neuts (auto) (2.0-8.3) x10*3/uL Absolute Nucleated RBC (0.0-0.012) X10*3/uL Nucleated RBC % (auto) (0.0-0.2) /100WBC Sodium (135-145) mmol/L Potassium (3.3-5.1) mmol/L Chloride (96-108) mmol/L Carbon Dioxide (22-29) mmol/L Anion Gap (12-20) BUN (9-16) mg/dL Creatinine (0.5-1.4) mg/dL Estim Creat Clear Calc Estimated GFR POC Glucose (60-115) mg/dL Random Glucose (60-115) mg/dL Lactic Acid (0.5-2.0) mmol/L Calcium (8.4-10.2) mg/dL Total Bilirubin (0.0-1.0) mg/dL Direct Bilirubin (0.0-0.5) mg/dL AST (5-37) U/L ALT (0-40) U/L Alkaline Phosphatase (39-117) U/L Ammonia (13-55) umol/L Total Creatine Kinase (38-174) U/L Troponin I High Sens 12.2 (<3.5-35.0) ng/L Total Protein (6.5-8.0) g/dL Albumin (3.5-5.0) g/dL Lipase (8-78) U/L TSH (0.32-4.0) uIU/mL Free Cortisol Random Cortisol ug/dL Independent Interpretation I performed an independent interpretation of an: EKG Interpretation: Sinus bradycardia 58BPM, NJ interval 150ms, QTC 479, no st elevation or depression Radiology Impression Discussion of test interpretation with radiology: I have reviewed the radiologist's reading. Radiologist Impression: [place] [id number] CT Scan Report Signed Patient: Ignacio Drake MR#: [id number] : 1960 Acct:[id number] Age/Sex: 62 / M ADM Date: 12/12/22 Loc: .ED Attending Dr: Ordering Physician: Farheen Lo MD Date of Service: 12/12/22 Procedure(s): CT cervical spine wo IV con Accession Number(s): [id number] cc: Farheen Lo MD~ EXAMINATION: NONCONTRAST HEAD CT NONCONTRAST CERVICAL SPINE CT INDICATION INFORMATION: Fall. Neck pain. COMPARISON: 11/20/2022 TECHNIQUE: Separate noncontrast CT examinations of the head and cervical spine were performed. Coronal and sagittal images were created for each examination at the technologist workstation. This CT examination was performed using dose optimization techniques as appropriate, variously including the following: *Automated exposure control *Adjustment of mA and/or kV according to patient size (this includes techniques or standardized protocols for targeted exams where dose is matched to indication/reason for exam; i.e. extremities or head) *Use of iterative reconstruction technique DLP: 1131 mGy-cm FINDINGS: Head: There is no evidence of acute intracranial hemorrhage or territorial infarction. No abnormal mass effect or midline shift is seen. Zafar to white matter differentiation is well preserved. No extra-axial fluid collections are identified. No hydrocephalus. No significant volume loss. There is no abnormal attenuation within the brain parenchyma. No acute osseous or soft tissue abnormality. The mastoid air cells and visualized portions of the paranasal sinuses are well aerated. Cervical spine: There is anatomic alignment of the vertebral bodies and posterior elements. The atlantoaxial and atlantooccipital articulations are intact. Vertebral body heights and intervertebral disc spaces are maintained.? No evidence of acute fracture. No prevertebral soft tissue swelling. Visualized portions of the lung apices are unremarkable. The thyroid gland is unremarkable. CT/CT cervical spine wo IV con IMPRESSION: *? No acute intracranial bleed or territorial infarction. *? No acute fractures of the calvarium or cervical spine. EXAMINATION: XR CHEST CLINICAL INFORMATION: Fall COMPARISON: 11/20/2022 TECHNIQUE: Frontal view of the chest was obtained. FINDINGS: Normal symmetric lung volumes. No parenchymal consolidation. No pleural effusion. No pneumothorax.? Cardiomediastinal silhouette and pulmonary vascularity are within normal limits. No acute osseous abnormalities. Chronic degenerative changes of the distal right clavicle, possibly an part remote posttraumatic. XR/XR chest 1V IMPRESSION: No acute findings. ? Dictated By: Juan Antonio Rivas MD Clinical indications: Status post fall. COMPARISON: None. TECHNIQUE: Dorsal spine 3 views. Lumbar spine 3 views. AP pelvis and bilateral hip 5 views. FINDINGS: Dorsal spine. There is normal thoracic kyphosis. The vertebral heights, alignment and disc heights are normal. No visible acute fracture, dislocation or subluxation seen. The paravertebral soft tissues are normal. No aggressive lytic or sclerotic process seen. Lumbar spine: There is normal lumbar lordosis the vertebral heights, alignment and disc heights are normal. No visible acute fracture, dislocation or subluxation seen. The SI joints are symmetrical. There is a temperature electrode in the rectum. AP pelvis and bilateral hips: There is normal symmetry of bilateral hips and SI joints. There is no visible acute fracture, dislocation or subluxation. No bony erosive changes. There is no visible fracture or dislocation involving either hip joints. There is vascular calcification seen bilaterally. XR/XR thoracic spine 3V IMPRESSION: 1.? Unremarkable dorsal spine exam. 2.? Unremarkable lumbar spine exam. ? 3. Unremarkable AP pelvis and bilateral hip exam. No acute fracture or dislocation seen in either hip joints. ? ? Dictated By: Fredy Morales MD Independent Historian Clinical information obtained from an independent historian. History obtained from or confirmed by: EMS External Record Review External record reviewed: Inpatient record, Office record, Outpatient record, Prior outpatient labs, Prior outpatient radiology, Primary care record and Outside ED record Critical Care Time Critical Care Time Critical Care Time: Yes Total Critical Care Time: 40 Attestation: I have personally provided critical care time exclusive of time spent on separately billable procedures. Time includes review of lab data, radiology res ults, discussion with consultants, and monitoring for potential decompensation. Intervention performed as documented. Discharge Plan Discharge Clinical Impression: Hypothermia, Fall Patient Disposition: Home, Self-Care Instructions: Acute Hypothermia (ED), Fall Prevention (ED) Additional Instructions: Your head CT, neck CT, chest x-rays, back x-rays and pelvic x-rays were normal today. Upon your arrival, you were hypothermic (body temperature was low at 92 degrees). It is unclear what had cause this. Please follow up with your dialysis provider. Please drink plenty of fluids and get plenty of rest. If any new or worsening symptoms occur, please return for re-evaluation. Prescriptions: No Action multivitamin Tablet 1 tab PO DAILY atorvastatin 80 mg tablet 1 tab PO DAILY carvedilol 25 mg tablet 1 tab PO BID tamsulosin 0.4 mg capsule 1 cap PO BEDTIME amlodipine 10 mg tablet 1 tab PO QAM calcitriol 0.5 mcg Capsule 1 mcg PO MOWEFR Rx Instructions: administer after dialysis on dialysis days mirtazapine 15 mg tablet 1 tab PO BEDTIME insulin lispro [Humalog U-100 Insulin] 100 unit/mL Solution 1 sliding scale dose SUBCUT USEASDIRECTD Protocol: Insulin Correction Scale Less than or equal to 110 ---- Give (units): 0 111 to 150 Give (units): 0 151 to 200 Give (units): 1 201 to 250 Give (units): 2 251 to 300 Give (units): 2 301 to 350 Give (units): 3 Greater than 350 Give (units): 3 Call MD if Blood Glucose > : 400 losartan 100 mg tablet 100 mg PO BID duloxetine 60 mg capsule,delayed release(DR/EC) 1 cap PO DAILY cholecalciferol (vitamin D3) 1,250 mcg (50,000 unit) Tablet 1,250 mcg PO QMONTH clonidine 0.3 mg/24 hr Patch Weekly 1 patch TRANSDERMAL Q7D Rx Instructions: on Saturday acetaminophen 325 mg Tablet 650 mg PO Q6H PRN (Reason: Fever Or Pain) acetaminophen 650 mg Suppository 650 mg NJ Q6H PRN (Reason: Fever Or Pain) dextrose [Glucose Gel] 40 % Gel 20 g PO Q15M PRN (Reason: BG < 60) Rx Instructions: until symptoms of low blood sugar are controlled bisacodyl 10 mg Suppository 10 mg NJ DAILY PRN (Reason: Constipation) Rx Instructions: use if MOM ineffective docusate sodium [Colace] 100 mg Capsule 100 mg PO BID polyethylene glycol 3350 [Miralax] 17 gram/dose Powder 17 g PO DAILY oxycodone 5 mg Tablet 5 mg PO Q6H PRN (Reason: Pain) naloxone 0.4 mg/mL Syringe 0.4 mg IM Q2M PRN (Reason: Opioid Reversal) Rx Instructions: NTExceed 10 mg total dose/episode insulin glargine [Lantus Solostar U-100 Insulin] 100 unit/mL (3 mL) Insulin Pen 6 unit SUBCUT QPM melatonin 5 mg Tablet 10 mg PO BEDTIME PRN (Reason: Sleep) hydralazine 50 mg Tablet 50 mg PO BID Qty: 60 0RF Protocol: Hold for SBP< HOLD for SBP < : 90 aspirin 81 mg Tablet,Delayed Release (Dr/Ec) 81 mg PO DAILY Qty: 30 0RF Interventions: ED Discharge Assessment Last Done: 12/12/22 13:19 Discharge Date/Time: 12/12/22 14:48
--- NOTE | 2022-12-12 09:10 | MHC.EDTECH ---
called [facility] requesting admission/d/c information @9:10am per request of ALBERTO Goddard
[2022-12-12 09:18] LABS: Cortisol Random 20.2 ug/dL
--- NOTE | 2022-12-12 09:28 | PC.NURSE ---
Addendum entered by Gilda Sanchez 12/12/22 09:49: Pt more alert and oriented, answering simple questions appropriately. States feeling better overall. Original Note: Alie zacarias removed, core temp 97.3
[2022-12-12] MEDS: Acetaminophen 325 MG TABLET 975 MG PO (09:36)
--- NOTE | 2022-12-12 10:12 | PC.NURSE ---
Pt out of room for xray at this time
--- NOTE | 2022-12-12 11:09 | PC.NURSE ---
Reports feeling better, states still has pain in back but has chronic back pain. temp 98.2 - remains off kailyn hugger. denies sob or chest pain.
[2022-12-12 12:17] LABS: Troponin-I High Sensitivity 12.2 ng/L (<3.5-35.0)
--- NOTE | 2022-12-12 13:20 | PC.NURSE ---
Alert and oriented, reports feeling better. temp 98.7. IV and rectal temp probe removed. Reports only pain he is having is chronic back pain. Aware he is being discharged [facility] to [facility]
--- NOTE | 2022-12-12 13:33 | PC.NURSE ---
Report called to 1st floor nurse at [facility]. Nurse aware that Ignacio will be transported back to facility
--- NOTE | 2022-12-12 14:48 | PC.NURSE ---
Discharged back to [facility] by EMS
== END 2022-12-12 14:48 | disposition home or self-care (01) ==
PROVIDERS: Emergency Medicine; Physician Assistant Medical; Emergency Provider Emergency Medicine Emergency Medical Services; PCP Emergency Medicine
DX: R68.0 Hypothermia, not associated with low environmental temperature (principal); H61.23 Impacted cerumen, bilateral; M62.830 Muscle spasm of back; E10.22 Type 1 diabetes mellitus with diabetic chronic kidney disease; I13.2 Hypertensive heart and chronic kidney disease with heart failure and with stage 5 chronic kidney disease, or end stage renal disease; I50.9 Heart failure, unspecified; N18.6 End stage renal disease; Z99.2 Dependence on renal dialysis; F17.210 Nicotine dependence, cigarettes, uncomplicated; B19.20 Unspecified viral hepatitis C without hepatic coma; Z91.81 History of falling; Z79.02 Long term (current) use of antithrombotics/antiplatelets; Z79.4 Long term (current) use of insulin; Z79.899 Other long term (current) drug therapy
CPT/HCPCS: 36415; 70450; 71045; 72072; 72100; 72125; 73521; 80048; 80076; 82140; 82530; 82533; 82550; 82947; 83605; 83690; 84443; 84484; 85025; 87040; 93005; 99284; 99285

== ENCOUNTER 2023-03-01 12:43 | Outpatient (AMB) | payer OTHER, SELFPAY ==
[2023-03-01 12:55] VITALS: BP 160/80; PULSE 68; BMI 23.7
--- NOTE | 2023-03-01 12:55 | A.OFFVIS_ITS ---
Intake Vital Signs 03/01/23 12:55 03/01/23 13:24 03/01/23 13:26 03/01/23 13:27 Height 5 ft 11 in Weight 169 lb 12.095 oz BMI 23.7 BP 160/80 H 158/87 H 155/90 H 121/74 Blood Pressure Location Rt brachial Rt brachial Rt brachial Rt brachial Position Sitting Supine Sitting Standing Pulse 68 Pulse Source Pulse Oximeter Intake Visit Reasons: follow up Intake Note: follow up patients having back and leg pain Multi Care Technician Required: No Allergies No Known Allergies Allergy (Verified 03/01/23 14:06) Medication List - Last Reconciled 03/01/23 by Shari Gutiérrez, CAMPBELL acetaminophen 650 mg PO Q6H PRN acetaminophen 650 mg WY Q6H PRN amlodipine 1 tab PO QAM atorvastatin 1 tab PO DAILY bisacodyl 10 mg WY DAILY PRN calcitriol 1 mcg PO MOWEFR carvedilol 1 tab PO BID cholecalciferol (vitamin D3) 1,250 mcg PO QMONTH clonidine 1 patch transdermal Q7D dextrose 40% (Glucose Gel) 20 grams PO Q15M PRN docusate sodium (Colace) 100 mg PO BID duloxetine 1 cap PO DAILY insulin glargine (Lantus Solostar U-100 Insulin) 6 units subcut QPM insulin lispro (Humalog U-100 Insulin) 1 sliding scale dose See Protocol subcut USEASDIRECTD losartan 100 mg PO DAILY melatonin 10 mg PO BEDTIME PRN mirtazapine 1 tab PO BEDTIME multivitamin 1 tab PO DAILY naloxone 0.4 mg IM Q2M PRN oxycodone 5 mg PO Q6H PRN polyethylene glycol 3350 (Miralax) 17 grams PO DAILY tamsulosin 1 cap PO BEDTIME HPI HPI Comments History of Present Illness Details 62-year-old male presents for a follow-up after being hospitalized at [facility] for Syncope and low blood sugars. Patient resides in a SNF and is a poor historian due to dementia. HX of uncontrolled DM, PAF, and end stage renal disease on hemodialysis. Patient has been seen at [facility] multiple times for hypoxia and hypoglycemia and hyperglycemia and [facility] on 12/12/22 for a fall related to low blood sugar of 57. Patient is not on anticoagulation or aspirin per SNF paperwork. Patient only complaint today is back-pain which is chronic for him. Denies any chest pain, dizziness, headaches, palpitations, or swelling. Mildly orthostatic on examination. He reports he uses compression stockings on occasion at the SNF facility. Diabetes is in the care of endocrinology and he is under the care of renal. Blood pressures have been 108/60-184/88 [facility] Medical History (Updated 03/01/23 @ 14:20 by Shari Gutiérrez NP) Anemia Atrial fibrillation Bacteremia Benign prostate hyperplasia Cellulitis Constipation COPD (chronic obstructive pulmonary disease) Dementia Diabetes mellitus type 1 Dysphagia End stage renal disease on dialysis ESRD (end stage renal disease) on dialysis Gastrointestinal hemorrhage Hepatitis C Hyperkalemia Hyperlipemia Hypernatremia Hyperparathyroidism Hypertension Hypertensive cardiopathy Major depressive disorder Nicotine dependence Osteoarthritis Peripheral vascular disease Sepsis Septic shock Streptococcal sepsis, unspecified Systolic CHF Urine retention Vitamin D deficiency Social History Household Members: Other Household Members Other:: longterm Housing: [facility] Do you presently have visiting nurse or other home services: Yes Unable to assess alcohol history related to: Unable to respond Alcohol intake: never Patient Tobacco Use Status: Current everyday Tobacco user Tobacco use type: Cigarette Second Hand Smoke Exposure: No Advance Directives Date on File: 06/22/22 service: No Current occupational status: disabled Review of Systems Const Denies chills, Denies fatigue, Denies fever(s), Denies frequent falls, Denies weakness, Denies weight gain and Denies weight loss ENT Reports dizziness Card Denies chest pain, Denies chest pain at rest, Denies chest pain with activity, Denies rapid heart rate, Denies pedal edema, Denies edema, Denies leg edema, Denies lightheadedness, Denies palpitations, Denies dyspnea, Denies dyspnea on exertion and Denies orthopnea Resp Denies cough, Denies dyspnea and Denies dyspnea on exertion GI Denies hematochezia and Denies change in stool character Musc Denies abnormal gait, Reports limited range of motion, Reports muscle cramps, Denies muscle weakness, Denies numbness, Denies radiating pain into limb, Denies stiffness and Denies tingling Neuro Denies abnormal gait, Reports dizziness, Denies frequent falls, Denies numbness, Denies tingling and Denies weakness Endo Denies fatigue and Denies palpitations Physical Exam Vital Signs: Last Vital Signs Pulse 68 03/01/23 12:55 BP 160/80 H 03/01/23 12:55 BMI result Body Mass Index 23.7 Const General: healthy appearing, comfortable and no acute distress Orientation/consciousness: oriented to person HEENT Head: Yes normal to inspection Eyes General: appearance normal, both eyes and all related structures Neck Neck: Yes normal visual inspection Chest Chest palpation & inspection: normal inspection of the chest Resp Effort & Inspection: normal respiratory effort Auscultation: clear to auscultation bilaterally Cardio Jugular venous distension: no JVD Palpation: normal PMI Rate: regular rate Rhythm: regular rhythm Heart sounds: S1 normal heart sound present, S2 normal heart sound present, no click, no gallops, no murmurs and no rubs GI Inspection: Yes normal to inspection Palpation (GI): Soft to palpation Skin General skin exam: no rashes or lesions noted Neuro General: oriented to person Extrem General: Yes normal to inspection Psych Appearance: grossly normal Assessment & Plan Assessment & Plan (1) Syncope: Code(s): R55 - Syncope and collapse (2) Atrial fibrillation: Code(s): I48.91 - Unspecified atrial fibrillation Plan Patient has had no recurrent falls unrelated to hypoglycemia. Heart rate on examination today was regular. patient was mildly orthostatic on examination, recommendation of compression stockings. HX of PAF, unclear why he is not on anticoagulation or the aspirin. Call was made to the facility to clarify reason why he is not on anticoagulation. ChadsVasc score of 4 for HTN, PVD, CHF, and DM. Pharmacological stress test with nuclear imaging showed no wall motion abnormality and echocardiogram showed LVEF 45-50%. Has labile blood pressure - continue to [facility]. Coding Level of Care Code Tele Est Pt Level 3 (62339) Diagnoses Syncope R55 Atrial fibrillation I48.91
[2023-03-01 13:24] VITALS: BP 158/87
[2023-03-01 13:26] VITALS: BP 155/90
[2023-03-01 13:27] VITALS: BP 121/74
== END 2023-03-01 14:35 | disposition home or self-care (01) ==
LOC: HO.HCS 12:43
PROVIDERS: PCP Emergency Medicine; Referring Provider Emergency Medicine; Visit Provider Nurse Practitioner
DX: I48.91 Unspecified atrial fibrillation (principal); R55 Syncope and collapse
CPT/HCPCS: 99213

== ENCOUNTER → 2023-03-01 12:43 | Outpatient (BNVA) | payer OTHER, SELFPAY | PROVIDERS: PCP Emergency Medicine; Referring Provider Emergency Medicine; Visit Provider Nurse Practitioner | DX: R55 Syncope and collapse (principal); I48.91 Unspecified atrial fibrillation | CPT/HCPCS: 99212 ==

== ENCOUNTER 2023-03-06 09:27 | Outpatient (REF) | payer OTHER, SELFPAY ==
--- NOTE | ~2023-03-06 | US_ITS ---
EXAMINATION: US ABDOMEN COMPLETE CLINICAL INFORMATION: Ascites, diabetes. COMPARISON: None available. TECHNIQUE: Real-time imaging of the abdominal viscera. FINDINGS: PANCREAS: Visualized portions unremarkable. ABDOMINAL AORTA: Mild to moderate atherosclerosis without significant dilatation. INFERIOR VENA CAVA: Visualized portions unremarkable. LIVER: Unremarkable. Possible trace perihepatic fluid. GALLBLADDER: Unremarkable. COMMON BILE DUCT: Normal in caliber measuring 0.3 cm in diameter. RIGHT KIDNEY: 9.9 cm. Unremarkable. LEFT KIDNEY: 9.0 cm for an unremarkable. SPLEEN: 10.4 cm. Unremarkable. FREE FLUID: Bilateral pleural effusions. US/US abdomen complete IMPRESSION: 1. Possible trace perihepatic fluid without other significant abnormality. 2. Bilateral pleural effusions. Correlate with chest radiographs.
== END 2023-03-06 09:28 | disposition home or self-care (01) ==
LOC: HO.HMGCX 09:27
PROVIDERS: PCP Emergency Medicine; Visit Provider Nurse Practitioner Gerontology
DX: R18.8 Other ascites (principal)
CPT/HCPCS: 76700

== ENCOUNTER 2023-05-12 09:42 | Emergency (ER) | payer OTHER, SELFPAY ==
--- NOTE | ~2023-05-12 | XR_ITS ---
EXAMINATION: XR CHEST CLINICAL INFORMATION: Shortness of breath COMPARISON: 12/12/22 TECHNIQUE: Frontal portable upright view of the chest was obtained. FINDINGS: Devices overlie the patient. Somewhat globular cardiac silhouette similar to previous likely related to technique. No mediastinal or hilar mass. No alveolar edema or focal pneumonia. No pleural fluid or pneumothorax. Chronic deformity distal right clavicle. XR/XR chest 1V IMPRESSION: No focal pneumonia or edema.
[2023-05-12 09:51] VITALS: BP 160/80; BP 180/86; PULSE 61; PULSE 66; RESP 16; TEMP 36.5; O2SAT 100; O2SAT 97; BMI 27.0
--- NOTE | 2023-05-12 09:58 | ED_ITS ---
HPI - Altered Mental Status General Chief Complaint: General Medical Stated Complaint: LETHARGIC,LOW BS 43, NOW 145 FROM SNF PER EMS Time Seen by Provider: 05/12/23 09:45 Source: EMS and old records reviewed Mode of arrival: EMS Limitations: altered mental status History of Present Illness HPI narrative: 63 yo wheelchair bound male with history of DM1, ESRD on HD T/Th/Sat, dementia, spinal stenosis, hepatitis C, atrial fibrillation not on anticoagluation, HTN, PVD, COPD, hypertensive cardiomyopathy, history of hypoglycemia and metabolic encephalopathy requiring intubation for airway protection in 05/2022 who presents to the ER via EMS for evaluation of AMS and hypoglycemia. Patient reportedly went out to smoke a cigarette this morning and after that he was found to be altered and lethargic. Glucose was found to be 43. He was given 1mg glucagon x2 there with improvement in glucose of 140s but he remained altered. He arrives to the ER lethargic but able to answer simple questions. He states he has been feeling unwell lately. His roommate has covid. He has been coughing and SOB with chest pains. He also endorses abdominal pain but would not elaborate on his symptoms. He denies eating any breakfast this morning. No N/V/D. Denies fevers or chills. MD complaint: altered mental status Onset (ago): minute(s) Timing confirmed by: caregiver Severity: moderate Consistency of symptoms: waxing and waning Context: diabetes and COPD Associated symptoms: chest pain, cough, loss of appetite, malaise, shortness of breath and weakness Treatments prior to arrival: glucose Related Data Home Medications Medication Instructions Recorded Confirmed amlodipine 10 mg tablet 1 tab PO QAM 06/17/22 03/01/23 atorvastatin 80 mg tablet 1 tab PO DAILY 06/17/22 03/01/23 calcitriol 0.5 mcg capsule 1 mcg PO MOWEFR 06/17/22 03/01/23 carvedilol 25 mg tablet 1 tab PO BID 06/17/22 03/01/23 cholecalciferol (vitamin D3) 1,250 1,250 mcg PO QMONTH 06/17/22 03/01/23 mcg (50,000 unit) tablet duloxetine 60 mg capsule,delayed 1 cap PO DAILY 06/17/22 03/01/23 release insulin lispro 100 unit/mL 1 sliding scale dose subcut 06/17/22 03/01/23 subcutaneous solution (Humalog USEASDIRECTD U-100 Insulin) mirtazapine 15 mg tablet 1 tab PO BEDTIME 06/17/22 03/01/23 multivitamin 1 tab PO DAILY 06/17/22 03/01/23 tamsulosin 0.4 mg capsule 1 cap PO BEDTIME 06/17/22 03/01/23 acetaminophen 325 mg tablet 650 mg PO Q6H PRN Fever Or Pain 11/20/22 03/01/23 acetaminophen 650 mg rectal 650 mg KS Q6H PRN Fever Or Pain 11/20/22 03/01/23 suppository bisacodyl 10 mg rectal suppository 10 mg KS DAILY PRN Constipation 11/20/22 03/01/23 clonidine 0.3 mg/24 hr weekly 1 patch transdermal Q7D 11/20/22 03/01/23 transdermal patch dextrose 40 % oral gel (Glucose 20 g PO Q15M PRN BG < 60 11/20/22 03/01/23 Gel) docusate sodium 100 mg capsule 100 mg PO BID 11/20/22 03/01/23 (Colace) insulin glargine 100 unit/mL (3 6 unit subcut QPM 11/20/22 03/01/23 mL) subcutaneous pen (Lantus Solostar U-100 Insulin) melatonin 5 mg tablet 10 mg PO BEDTIME PRN Sleep 11/20/22 03/01/23 naloxone 0.4 mg/mL injection 0.4 mg IM Q2M PRN Opioid Reversal 11/20/22 03/01/23 syringe oxycodone 5 mg tablet 5 mg PO Q6H PRN Pain 11/20/22 03/01/23 polyethylene glycol 3350 17 17 g PO DAILY 11/20/22 03/01/23 gram/dose oral powder (Miralax) losartan 100 mg tablet 100 mg PO DAILY 03/01/23 03/01/23 Allergies Allergy/AdvReac Type Severity Reaction Status Date / Time No Known Allergies Allergy Verified 03/01/23 14:06 Review of Systems 2 Review of Systems: Yes all other systems are reviewed and are negative PMFSH Past Medical History Medical History (Updated 05/12/23 @ 11:33 by ALBERTO Marino) Hypernatremia Vitamin D deficiency Hyperkalemia Hyperparathyroidism Dysphagia Hyperlipemia Hypertension Major depressive disorder Urine retention Systolic CHF Dementia Benign prostate hyperplasia Nicotine dependence Constipation Osteoarthritis Anemia Peripheral vascular disease Atrial fibrillation Gastrointestinal hemorrhage End stage renal disease on dialysis Hepatitis C COPD (chronic obstructive pulmonary disease) Cellulitis Streptococcal sepsis, unspecified Bacteremia Septic shock Sepsis Diabetes mellitus type 1 Hypertensive cardiopathy ESRD (end stage renal disease) on dialysis Social History Social History Household Members: Other Household Members Other:: [facility] Housing: Half-Way Do you presently have visiting nurse or other home services: Yes Unable to assess alcohol history related to: Unable to respond Alcohol intake: never Patient Tobacco Use Status: Current everyday Tobacco user Tobacco use type: Cigarette Second Hand Smoke Exposure: No Advance Directives: Yes Advance Directives on File: Yes Advance Directives Date on File: 06/22/22 service: No Current occupational status: disabled Physical Exam ED Vital Signs: Vital Signs - 24 hr 05/12/23 09:51 05/12/23 10:18 Temperature 97.7 F 96.6 F L Pulse Rate 61 60 Respiratory Rate 16 16 Blood Pressure 160/80 H Pulse Oximetry 97 97 Oxygen Delivery Method Room Air Room Air BMI result Body Mass Index 27.0 Appearance: Lethargic male, laying in the stretcher. Head: normocephalic, atraumatic. Eyes: Pupils equal, round and reactive to light. ENT: Pharynx normal. No tonsillar swelling or exudate. Neck: Normal inspection. Neck supple. CVS: Normal heart rate and rhythm. Pulses normal. Respiratory: No respiratory distress. Breath sounds diminished at the bases bilaterally. Abdomen: Soft and nontender. +BS x4 Skin: Skin warm and dry. Normal skin color. Normal skin turgor. No rashes. Extremities: No lower extremity edema. No joint swelling. Left AVF with +thrill Neuro/psych: Lethargic, arouses to voice, answers Y/N questions, follows simple commands, generally weak, nonfocal Course Reevaluation(s) Reevaluation #1: significant improvement in mental status. tolerating PO hypoglycemia likely due to acute viral illness. he is a brittle diabetic with several encounters for high and low BS. stable for d/c back to snf Time: 13:16 Medical Decision Making Medical Decision Making MDM Narrative: 63 yo wheelchair bound male with history of DM1, ESRD on HD T//Sat, dementia, spinal stenosis, hepatitis C, atrial fibrillation not on anticoagluation, HTN, PVD, COPD, hypertensive cardiomyopathy, history of hypoglycemia and metabolic encephalopathy requiring intubation for airway protection in 05/2022 who presents to the ER via EMS for evaluation of AMS and hypoglycemia. Glucose 170s here. lethargic but able to answer questions appropriately. VS are stable. He is normal sinus rhythm. Labs largely unremarkable, stable pancytopenia. Lytes ok s/p HD yesterday. ammonia normal. Found to be COVID ++ no hypoxia, symptoms are mild. he is vaccinated. cxr clear. he is NOT septic much more awake and alert - asking for pain meds for his chronic back pain. stable for d/c back to SNF at this time Differential Diagnosis Differential Diagnoses: The differential diagnosis associated with the presentation includes hypoglycemia due to decreased PO intake, viral illness such as COVID or Flu, PNA, drug use, extrinsic insulin overdose Admission/Observation Consideration of admission/observation: Escalation of care including admission/observation considered Lab Data MDM Lab Attestation statement: I reviewed the patient's lab results. pancytopenic, chronic. ESRD w/ slightly low potassium 05/12/23 10:37 05/12/23 10:37 Labs: Lab Results 05/12/23 05/12/23 05/12/23 Range/Units 09:57 10:37 10:44 WBC 3.8 L (4.8-10.8) X10*3/uL RBC 4.10 L (4.60-5.80) X10*6/uL Hgb 13.0 L (14.0-18.0) g/dl Hct 39.6 L (42.0-52.0) % MCV 96.6 (80.0-98.0) fL MCH 31.7 (27.0-33.0) pg MCHC 32.8 (31.0-36.0) g/dl RDW 15.9 (11.0-16.0) % Plt Count 135 L D (160-400) X10*3/uL MPV 10.7 (9.4-12.4) fL Immature Gran % (Auto) 0.3 (0.0-0.4) % Neut % (Auto) 78.2 H (45-73) % Lymph % (Auto) 11.0 L (20-40) % Esmeralda % (Auto) 7.6 (2-11) % Eos % (Auto) 2.6 (0-4) % Baso % (Auto) 0.3 (0-2) % Lymph # (Auto) 0.4 L (1.2-4.9) X10*3/uL Esmeralda # (Auto) 0.3 (0.1-1.2) X10*3/uL Eos # (Auto) 0.1 (0.0-0.4) X10*3/uL Baso # (Auto) 0.0 (0.0-0.2) X10*3/uL Abs Immat Gran (auto) 0.01 (0.00-0.03) X10*3/uL Absolute Neuts (auto) 3.0 (2.0-8.3) x10*3/uL Absolute Nucleated RBC 0.000 (0.0-0.012) X10*3/uL Nucleated RBC % (auto) 0.0 (0.0-0.2) /100WBC VBG pH 7.42 (7.32-7.43) VBG pCO2 50 mmHg VBG pO2 68 mmHg VBG HCO3 32 H (22-26) mmol/L VBG O2 Saturation 90.0 % VBG Base Excess 7.0 mmol/L Sodium 134 L (135-145) mmol/L Potassium 3.3 (3.3-5.1) mmol/L Chloride 92 L (96-108) mmol/L Carbon Dioxide 27 (22-29) mmol/L Anion Gap 18 (12-20) BUN 17 H (9-16) mg/dL Creatinine 6.21 H* (0.5-1.4) mg/dL Estim Creat Clear Calc 12.0 Estimated GFR 9 POC Glucose 177 H (60-115) mg/dL Random Glucose 205 H (60-115) mg/dL Lactic Acid 0.9 (0.5-2.0) mmol/L Calcium 9.1 (8.4-10.2) mg/dL Magnesium 2.1 (1.6-2.6) mg/dL Total Bilirubin 0.7 (0.0-1.0) mg/dL Direct Bilirubin 0.3 (0.0-0.5) mg/dL AST 22 (5-37) U/L ALT 14 (0-40) U/L Alkaline Phosphatase 77 (39-117) U/L Ammonia (13-55) umol/L Troponin I High Sens 23.9 D (<3.5-35.0) ng/L Total Protein 7.6 (6.5-8.0) g/dL Albumin 3.9 (3.5-5.0) g/dL TSH 2.20 (0.32-4.0) uIU/mL Ethyl Alcohol < 10 mg/dL COVID-19 (LAKISHA) (Negative) COVID-19 Clin Com Influenza Type A (ELMO) (Negative) Influenza Type B (ELMO) (Negative) Influenza A & B Note 05/12/23 05/12/23 05/12/23 Range/Units 10:56 12:12 12:12 WBC (4.8-10.8) X10*3/uL RBC (4.60-5.80) X10*6/uL Hgb (14.0-18.0) g/dl Hct (42.0-52.0) % MCV (80.0-98.0) fL MCH (27.0-33.0) pg MCHC (31.0-36.0) g/dl RDW (11.0-16.0) % Plt Count (160-400) X10*3/uL MPV (9.4-12.4) fL Immature Gran % (Auto) (0.0-0.4) % Neut % (Auto) (45-73) % Lymph % (Auto) (20-40) % Esmeralda % (Auto) (2-11) % Eos % (Auto) (0-4) % Baso % (Auto) (0-2) % Lymph # (Auto) (1.2-4.9) X10*3/uL Esmeralda # (Auto) (0.1-1.2) X10*3/uL Eos # (Auto) (0.0-0.4) X10*3/uL Baso # (Auto) (0.0-0.2) X10*3/uL Abs Immat Gran (auto) (0.00-0.03) X10*3/uL Absolute Neuts (auto) (2.0-8.3) x10*3/uL Absolute Nucleated RBC (0.0-0.012) X10*3/uL Nucleated RBC % (auto) (0.0-0.2) /100WBC VBG pH (7.32-7.43) VBG pCO2 mmHg VBG pO2 mmHg VBG HCO3 (22-26) mmol/L VBG O2 Saturation % VBG Base Excess mmol/L Sodium (135-145) mmol/L Potassium (3.3-5.1) mmol/L Chloride (96-108) mmol/L Carbon Dioxide (22-29) mmol/L Anion Gap (12-20) BUN (9-16) mg/dL Creatinine (0.5-1.4) mg/dL Estim Creat Clear Calc Estimated GFR POC Glucose (60-115) mg/dL Random Glucose (60-115) mg/dL Lactic Acid (0.5-2.0) mmol/L Calcium (8.4-10.2) mg/dL Magnesium (1.6-2.6) mg/dL Total Bilirubin (0.0-1.0) mg/dL Direct Bilirubin (0.0-0.5) mg/dL AST (5-37) U/L ALT (0-40) U/L Alkaline Phosphatase (39-117) U/L Ammonia 24 31 (13-55) umol/L Troponin I High Sens (<3.5-35.0) ng/L Total Protein (6.5-8.0) g/dL Albumin (3.5-5.0) g/dL TSH (0.32-4.0) uIU/mL Ethyl Alcohol mg/dL COVID-19 (LAKISHA) Positive A (Negative) COVID-19 Clin Com See Note Influenza Type A (ELMO) Negative (Negative) Influenza Type B (ELMO) Negative (Negative) Influenza A & B Note See Note Independent Interpretation I performed an independent interpretation of an: EKG and Plain X-Ray Interpretation: ekg w/ normal sinus rhythm w/ sinus arrythmia, HR 61 bpm, t-wave inversion in leads III and V6 only. no ST segment elevations cxr without focal PNA, mild vascular congestion, agree w/ radiology read Radiology Impression Discussion of test interpretation with radiology: I have reviewed the radiologist's reading. Radiologist Impression: EXAMINATION: XR CHEST CLINICAL INFORMATION: Shortness of breath COMPARISON: 12/12/22 TECHNIQUE: Frontal portable upright view of the chest was obtained. FINDINGS: Devices overlie the patient. Somewhat globular cardiac silhouette similar to previous likely related to technique. No mediastinal or hilar mass. No alveolar edema or focal pneumonia. No pleural fluid or pneumothorax. Chronic deformity distal right clavicle. XR/XR chest 1V IMPRESSION: No focal pneumonia or edema. Independent Historian Clinical information obtained from an independent historian. History obtained from or confirmed by: EMS External Record Review External record reviewed: Inpatient record, Office record, Outpatient record, Prior outpatient labs and Prior outpatient radiology Prescription Management I considered prescription management with: Pain Medication and Antiviral Chronic Conditions Patient?s care impacted by: Diabetes and Hypertension Critical Care Time Critical Care Time Critical Care Time: Yes Total Critical Care Time: 35 Attestation: I have personally provided critical care time exclusive of time spent on separately billable procedures. Time includes review of lab data, radiology results, frequent bedside assessments of mental status, and monitoring for potential decompensation. Intervention performed as documented. Discharge Plan Discharge Clinical Impression: Hypoglycemia, Acute metabolic encephalopathy, COVID-19 Clinical Impression: (Ruled Out): Diabetes mellitus type 1, Hypothermia Patient Disposition: Xfer SNF Instructions: Covid-19 Viral Syndrome and Novel Coronavirus (ED) Hey/Ath Additional Instructions: You were found to be COVID-19 POSITIVE today. Your chest x-ray and oxygen levels were normal. Rest. Drink plenty of fluids. Take over the counter cold/flu medications as needed for your symptoms. Take Tylenol as needed for fevers and body aches. Make sure you are eating and drinking well. Follow up with your doctor this week. If you shortness of breath worsens, if you develop difficulty breathing or any other concerning symptom come back to the ER for further evaluation. Prescriptions: No Action multivitamin Tablet 1 tab PO DAILY atorvastatin 80 mg tablet 1 tab PO DAILY carvedilol 25 mg tablet 1 tab PO BID tamsulosin 0.4 mg capsule 1 cap PO BEDTIME amlodipine 10 mg tablet 1 tab PO QAM calcitriol 0.5 mcg Capsule 1 mcg PO MOWEFR Rx Instructions: administer after dialysis on dialysis days mirtazapine 15 mg tablet 1 tab PO BEDTIME insulin lispro [Humalog U-100 Insulin] 100 unit/mL Solution 1 sliding scale dose SUBCUT USEASDIRECTD Protocol: Insulin Correction Scale Less than or equal to 110 ---- Give (units): 0 111 to 150 Give (units): 0 151 to 200 Give (units): 1 201 to 250 Give (units): 2 251 to 300 Give (units): 2 301 to 350 Give (units): 3 Greater than 350 Give (units): 3 Call MD if Blood Glucose > : 400 duloxetine 60 mg capsule,delayed release(DR/EC) 1 cap PO DAILY cholecalciferol (vitamin D3) 1,250 mcg (50,000 unit) Tablet 1,250 mcg PO QMONTH losartan 100 mg tablet 100 mg PO DAILY clonidine 0.3 mg/24 hr Patch Weekly 1 patch TRANSDERMAL Q7D Rx Instructions: on Saturday acetaminophen 325 mg Tablet 650 mg PO Q6H PRN (Reason: Fever Or Pain) acetaminophen 650 mg Suppository 650 mg KS Q6H PRN (Reason: Fever Or Pain) dextrose [Glucose Gel] 40 % Gel 20 g PO Q15M PRN (Reason: BG < 60) Rx Instructions: until symptoms of low blood sugar are controlled bisacodyl 10 mg Suppository 10 mg KS DAILY PRN (Reason: Constipation) Rx Instructions: use if MOM ineffective docusate sodium [Colace] 100 mg Capsule 100 mg PO BID polyethylene glycol 3350 [Miralax] 17 gram/dose Powder 17 g PO DAILY oxycodone 5 mg Tablet 5 mg PO Q6H PRN (Reason: Pain) naloxone 0.4 mg/mL Syringe 0.4 mg IM Q2M PRN (Reason: Opioid Reversal) Rx Instructions: NTExceed 10 mg total dose/episode insulin glargine [Lantus Solostar U-100 Insulin] 100 unit/mL (3 mL) Insulin Pen 6 unit SUBCUT QPM melatonin 5 mg Tablet 10 mg PO BEDTIME PRN (Reason: Sleep) Referrals: JULIOCESAR SCHWARTZ [Primary Care Provider] -
--- NOTE | 2023-05-12 10:01 | PC.NURSE ---
pt arousable to loud verbal stimuli, otherwise very letharigica and sleepy. not oriented to place or birthday, is unwilling or unable to answer questions, but did tell me that he is cold. blanket given. pt has dialysis fistual on left side - dialysis treatment completed yesterday. POC in triage 177. EMS IV line on left arm - 20g. NSR on monitor - hx of afib.
[2023-05-12 10:02] LABS: Glucose, Whole Blood 177 mg/dL (60-115)
--- NOTE | 2023-05-12 10:11 | ECG_ITS ---
Test Reason : CP Blood Pressure : / mmHG Vent. Rate : 061 BPM Atrial Rate : 061 BPM P-R Int : 198 ms QRS Dur : 106 ms QT Int : 476 ms P-R-T Axes : 087 -51 001 degrees QTc Int : 479 ms Sinus rhythm with Premature atrial complexes Left anterior fascicular block Pulmonary disease pattern Abnormal ECG When compared with ECG of 12-DEC-2022 05:19, Premature atrial complexes are now Present QRS axis Shifted left Referred By: Majo Rodríguez Electronically Signed By:MAGAN MASON MD
[2023-05-12 10:18] VITALS: PULSE 60; RESP 16; TEMP 35.9; O2SAT 97
[2023-05-12 10:43] LABS: MANUAL DIFF FLAG NO
[2023-05-12 10:45] LABS: Basophils Percent Auto 0.3 % (0-2); Eosinophils Absolute Auto 0.1 X10*3/uL (0.0-0.4); Eosinophils Percent Auto 2.6 % (0-4); Hematocrit 39.6 % (42.0-52.0); Imm Gran Abs Auto 0.01 X10*3/uL (0.00-0.03); Imm Gran Pct Auto 0.3 % (0.0-0.4); Lymphocytes Absolute Auto 0.4 X10*3/uL (1.2-4.9); Mean Corpuscular HGB Conc 32.8 g/dl (31.0-36.0); Mean Corpuscular Hemoglobin 31.7 pg (27.0-33.0); Mean Corpuscular Volume 96.6 fL (80.0-98.0); Mean Platelet Volume 10.7 fL (9.4-12.4); Monocytes Absolute Auto 0.3 X10*3/uL (0.1-1.2); Monocytes Percent Auto 7.6 % (2-11); Neutrophils Percent Auto 78.2 % (45-73); Platelet Count 135 X10*3/uL (160-400); Red Cell Distribution Width 15.9 % (11.0-16.0); White Blood Count 3.8 X10*3/uL (4.8-10.8)
[2023-05-12 10:49] LABS: VBG HCO3 32 mmol/L (22-26); VBG pCO2 50 mmHg; VBG pH 7.42 (7.32-7.43); VBG pO2 68 mmHg
[2023-05-12 10:55] LABS: Lactic Acid 0.9 mmol/L (0.5-2.0)
[2023-05-12 10:57] LABS: Venous Blood Gas Refer to POC result
--- NOTE | 2023-05-12 11:07 | PC.NURSE ---
pt is difficult IV insertion, PA aware. Labs are drawn but no IV. IV catheter that was put in by EMS was non-functional and half hanging out of patients arm. It was removed. Pt is more awake and verbal than previously. He asked for pain medication, and informed this nurse that they often use an ultrasound for the IV. Per PA, pt needs to be awake enough to eat something, and then we can give pain meds.
[2023-05-12 11:08] LABS: Troponin-I High Sensitivity 23.9 ng/L (<3.5-35.0)
[2023-05-12 11:10] LABS: COVID-19 Test Positive (Negative); IDNOW Serial# 08D9AD1C
[2023-05-12 11:15] LABS: IDNOW Serial# 55D5AD1C
[2023-05-12 11:16] LABS: Influenza A Negative (Negative); Influenza B2 Negative (Negative)
[2023-05-12 11:19] LABS: Alanine Aminotransferase 14 U/L (0-40); Albumin Level 3.9 g/dL (3.5-5.0); Alkaline Phosphatase 77 U/L (39-117); Anion Gap 18 (12-20); Aspartate Amino Transferase 22 U/L (5-37); Bilirubin Direct 0.3 mg/dL (0.0-0.5); Bilirubin Total 0.7 mg/dL (0.0-1.0); Blood Urea Nitrogen 17 mg/dL (9-16); Calcium 9.1 mg/dL (8.4-10.2); Carbon Dioxide 27 mmol/L (22-29); Chloride 92 mmol/L (96-108); Estimated Glomerular Filt Rate 9; Ethanol < 10 mg/dL; Glucose Random 205 mg/dL (60-115); Magnesium 2.1 mg/dL (1.6-2.6); Potassium 3.3 mmol/L (3.3-5.1); Sodium 134 mmol/L (135-145); Total Protein 7.6 g/dL (6.5-8.0)
[2023-05-12 12:24] LABS: Ammonia 24 umol/L (13-55); Ammonia 31 umol/L (13-55)
== END 2023-05-12 14:31 ==
PROVIDERS: Physician Assistant; Emergency Provider Emergency Medicine; PCP Emergency Medicine
DX: U07.1 COVID-19 (principal); G93.41 Metabolic encephalopathy; E10.649 Type 1 diabetes mellitus with hypoglycemia without coma; R41.82 Altered mental status, unspecified; R07.89 Other chest pain; R05.9 Cough, unspecified; R06.02 Shortness of breath; R53.1 Weakness; F17.210 Nicotine dependence, cigarettes, uncomplicated; Z71.6 Tobacco abuse counseling; Z79.899 Other long term (current) drug therapy; Z79.4 Long term (current) use of insulin
CPT/HCPCS: 36415; 71045; 80048; 80076; 80307; 82140; 82803; 82947; 83605; 83735; 84443; 84484; 85025; 87040; 87502; 87635; 93005; 99284

== ENCOUNTER 2024-11-22 09:20 | Inpatient (IN) | payer OTHER, SELFPAY ==
[2024-11-22] VITALS (17 sets, daily range): BP systolic 86–161; BP diastolic 61–89; PULSE 71–91; RESP 10–18; TEMP 34–36.6; O2SAT 92–100; BMI 16.3
--- NOTE | 2024-11-22 | ECG_ITS ---
Test Reason : TACHY Blood Pressure : */* mmHG Vent. Rate : 79 BPM Atrial Rate : 79 BPM P-R Int : 142 ms QRS Dur : 86 ms QT Int : 468 ms P-R-T Axes : 80 94 236 degrees QTcB Int : 536 ms Normal sinus rhythm Indeterminate axis Marked T wave abnormality, consider anterolateral ischemia Prolonged QT Abnormal ECG When compared with ECG of 22-Nov-2024 10:04, No significant changes seen Referred By: Alisha Tran Electronically Signed By: MADAI NELSON
--- NOTE | ~2024-11-22 | CT_ITS ---
CLINICAL HISTORY: abnormal CXR, sepsis CT chest without contrast Comparison: None Findings: The heart is normal size. Calcification of the coronary vasculature is present. The visualized thyroid and mediastinum are unremarkable. Small bilateral pleural effusions are present. Mild dependent bibasilar airspace opacities. 16 mm nodule within the left lower lobe anteriorly with nodular contours (image [id number]). Visualized portions of the upper abdomen demonstrate moderate ascites as well as nonobstructing bilateral renal calcifications. No acute fractures. IMPRESSION: 1. Bibasilar atelectasis versus pneumonia with small bilateral pleural effusions. 2. Left lower lobe nodule. Further assessment with PET-CT examination recommended. 3. Coronary artery disease. 4. Ascites. 5. Nonobstructing bilateral renal calcifications. This document has been electronically signed by: Cachorro Ba MD on 11/22/2024 16:12:38
--- NOTE | ~2024-11-22 | XR_ITS ---
CLINICAL HISTORY: pain Five view, pelvis and bilateral hips Comparison: CR/SR - XR HIP BI W PEL1V - 12/12/22 10:18 EDT Findings: Mild lumbosacral degenerative changes. The bilateral sacroiliac joints and pubic symphysis are maintained. Calcific atherosclerosis and pelvic phleboliths. Mild bilateral hip osteoarthritis and chondrocalcinosis on the left. No fracture or femoral head avascular necrosis. IMPRESSION: No acute findings. Mild bilateral hip osteoarthritis. This document has been electronically signed by: Alberto Mata DO on 11/22/2024 12:28:56
--- NOTE | ~2024-11-22 | XR_ITS ---
CLINICAL HISTORY: AMS, hypothermia Chest radiograph, 1 view Comparison: CR/SR - XR CHEST 1V - 05/12/23 11:02 EDT Findings: The cardiomediastinal silhouette is not enlarged. Pulmonary vascularity is unremarkable. An ovoid masslike opacity projects over the peripheral left lung base and measures up to 3.8 cm. The peripheral right midlung is more opaque than elsewhere. The right costophrenic angle is blunted. No pneumothorax. IMPRESSION: 1. Peripheral left basilar ovoid 3.8 cm masslike opacity. Increased opacity of the peripheral right midlung. These findings may represent soft tissue summation or external artifact, although consider further evaluation with standing PA and lateral views of the chest to evaluate for persistence and to exclude pulmonary mass and airspace disease. 2. The right costophrenic angle is blunted, which can be seen with a small pleural effusion, although the examination was performed supine. This document has been electronically signed by: Alberto Mata DO on 11/22/2024 12:22:38
--- NOTE | ~2024-11-22 | CT_ITS ---
CLINICAL HISTORY: AMS, facial droop, headache CT head without contrast Comparison: CT/REG/SR - CT HEAD/BRAIN WO IV CON - 12/12/22 05:09 EDT Findings: No acute intracranial hemorrhage or midline shift. The porter-white matter differentiation is maintained. Bilateral carotid siphon and vertebrobasilar calcifications. Mild generalized cerebral involutional change. Mild burden chronic small-vessel white matter ischemic change. Tiny cavum septum pellucidum. Mild mucosal thickening within a few posterior right ethmoid air cells and the right sphenoid sinus. The remaining paranasal sinuses and left mastoid air cells are clear. Trace right mastoid air cell effusion. Bilateral external auditory canal cerumen/debris. The calvarium is intact. IMPRESSION: No acute intracranial findings. This document has been electronically signed by: Alberto Mata DO on 11/22/2024 12:14:50
--- NOTE | ~2024-11-22 | US_ITS ---
CLINICAL HISTORY: elevated LFTs US abdomen limited Comparison: US/OR/SR - US ABDOMEN COMPLETE - 03/06/23 09:48 EDT Findings: Right pleural effusion. The visualized pancreas is normal. The main pancreatic duct measures less than 3 mm. The liver is normal in size and is slightly coarsened echotexture without focal mass. There is no intrahepatic bile duct dilatation. The common duct is 3 mm in diameter. The gallbladder contains echogenic sludge. No gallbladder wall thickening to suggest cholecystitis. There is no sonographic Osman sign. The main portal vein is antegrade. The right kidney is 9 cm in length. The right kidney is echogenic. Tiny 0.5 cm cyst within the lower pole. Small volume ascites. IMPRESSION: 1. Coarsened hepatic echotexture without focal hepatic mass or biliary obstruction. 2. Right pleural effusion and small volume ascites. 3. The gallbladder contains echogenic sludge without evidence of acute cholecystitis. 4. Atrophic and echogenic right kidney, which can be seen with medical renal disease. This document has been electronically signed by: Alberto Mata DO on 11/22/2024 12:49:39
--- NOTE | 2024-11-22 09:35 | ECG_ITS ---
Test Reason : HYPOTENSION Blood Pressure : */* mmHG Vent. Rate : 86 BPM Atrial Rate : 86 BPM P-R Int : 142 ms QRS Dur : 90 ms QT Int : 482 ms P-R-T Axes : 56 -3 215 degrees QTcB Int : 576 ms Normal sinus rhythm Low voltage QRS ST & Marked T wave abnormality, consider anterolateral ischemia Prolonged QT Abnormal ECG When compared with ECG of 12-May-2023 10:18, Significant changes have occurred Referred By: Majo Rodríguez Electronically Signed By: MADAI NELSON
--- NOTE | 2024-11-22 09:39 | ED_ITS ---
HPI - Altered Mental Status General Chief Complaint: General Medical Stated Complaint: FOUND UNRESP @ SNF PER EMS Time Seen by Provider: 11/22/24 09:28 Source: EMS, RN notes reviewed and old records reviewed Mode of arrival: EMS Limitations: altered mental status History of Present Illness ED Provider: Daniel Rodríguez PA-C HPI narrative: 64 yo male (FULL CODE) with history of ESRD on HD T/Th/Sat, COPD, chronic afib not on anticoagluation, HTN, HFpEF, chronic respiratory failure with hypoxia, DM1 with polyneuropathy, protein-calorie malnutrition, PVD, anxiety, dysphagia, hx falls, who presents to the ER from [facility] for AMS and hypoglycemia. Patient was able to get OOB to the chair with assistance of staff but reportedly developed lethargy and AMS. His glucose was checked and found to be 41. He was given oral glucose. EMS was called and repeat glucose 71. He was hypotensive 80s systolic for EMS. He remained altered. Per review of records it appears patient was started on Augmentin on 11/19 for pneumoniits due to inhalation of food and vomit. It also appears he was recently started on oxycodone 5mg q6 for bilateral hip pain. On arrival to the ER patients BP 100s and glucose 36. IM glucagon given. MD complaint: altered mental status and other (hypoglycemia) Onset (ago): hour(s) Timing confirmed by: caregiver Severity: severe Consistency of symptoms: waxing and waning Context: history of similar presentation and diabetes Treatments prior to arrival: glucose Related Data Home Medications ?Medication ?Instructions ?Recorded ?Confirmed duloxetine 60 mg capsule,delayed 1 cap PO DAILY 06/17/22 03/01/23 release insulin lispro 100 unit/mL 1 sliding scale dose subcut 06/17/22 03/01/23 subcutaneous solution (Humalog USEASDIRECTD U-100 Insulin) mirtazapine 15 mg tablet 1 tab PO BEDTIME 06/17/22 03/01/23 tamsulosin 0.4 mg capsule 1 cap PO BEDTIME 06/17/22 03/01/23 acetaminophen 325 mg tablet 650 mg PO Q6H PRN Fever Or Pain 11/20/22 03/01/23 acetaminophen 650 mg rectal 650 mg OK Q6H PRN Fever Or Pain 11/20/22 03/01/23 suppository insulin glargine 100 unit/mL (3 6 unit subcut QPM 11/20/22 03/01/23 mL) subcutaneous pen (Lantus Solostar U-100 Insulin) melatonin 5 mg tablet 10 mg PO BEDTIME PRN Sleep 11/20/22 03/01/23 oxycodone 5 mg tablet 5 mg PO Q6H PRN Pain 11/20/22 03/01/23 amoxicillin 500 mg-potassium 1 tab PO BEDTIME 11/22/24 11/22/24 clavulanate 125 mg tablet (Augmentin) atorvastatin 40 mg tablet 40 mg PO BEDTIME 11/22/24 11/22/24 cholecalciferol (vitamin D3) 1,250 1,250 mcg PO QMONTH 11/22/24 11/22/24 mcg (50,000 unit) capsule cyanocobalamin (vitamin B-12) 1,000 mcg PO DAILY 11/22/24 11/22/24 1,000 mcg tablet epinephrine 0.3 mg/0.3 mL 0.3 mg IM Q5M PRN Anaphylaxis 11/22/24 11/22/24 injection, auto-injector (EpiPen) ergocalciferol (vitamin D2) 1,250 1,250 mcg PO WE@0900 11/22/24 11/22/24 mcg (50,000 unit) capsule folic acid 1 mg tablet 1 mg PO DAILY 11/22/24 11/22/24 glucagon 1 mg/0.2 mL subcutaneous 1 mg subcut Q15M PRN low BS 11/22/24 11/22/24 solution (Gvoke) naloxone 0.4 mg/mL injection 0.4 mg subcut Q2M PRN Anaphylaxis 11/22/24 11/22/24 solution naloxone 4 mg/actuation nasal spray 4 mg intranasal Q2M PRN overdose 11/22/24 11/22/24 thiamine HCl (vitamin B1) 100 mg 100 mg PO DAILY 11/22/24 11/22/24 tablet Allergies Allergy/AdvReac Type Severity Reaction Status Date / Time No Known Allergies Allergy Verified 11/22/24 10:28 Review of Systems 2 Review of Systems: Yes all other systems are reviewed and are negative [facility] Past Medical History Medical History (Updated 11/22/24 @ 13:37 by ALBERTO Marino) Hypernatremia Vitamin D deficiency Hyperkalemia Hyperparathyroidism Dysphagia Hyperlipemia Hypertension Major depressive disorder Urine retention Systolic CHF Dementia Benign prostate hyperplasia Nicotine dependence Constipation Osteoarthritis Anemia Peripheral vascular disease Atrial fibrillation Gastrointestinal hemorrhage End stage renal disease on dialysis Hepatitis C COPD (chronic obstructive pulmonary disease) Cellulitis Streptococcal sepsis, unspecified Bacteremia Septic shock Sepsis Diabetes mellitus type 1 Hypertensive cardiopathy ESRD (end stage renal disease) on dialysis Social History Social History Household Members: Other Household Members Other:: half-way Housing: Prison Do you presently have visiting nurse or other home services: Yes Unable to assess alcohol history related to: Unable to respond Alcohol intake: never Patient Tobacco Use Status: Current everyday Tobacco user Tobacco use type: Cigarette Second Hand Smoke Exposure: No Advance Directives: Yes Advance Directives on File: Yes Advance Directives Date on File: 06/22/22 Do you have a plan to hurt others: No Plan service: No Current occupational status: disabled Physical Exam ED Vital Signs: Vital Signs - 24 hr 11/22/24 10:23 11/22/24 11:30 11/22/24 11:35 Temperature 95.9 F L 93.6 F L 93.2 F L Pulse Rate 79 74 71 Respiratory Rate 10 L 15 10 L Blood Pressure 101/76 149/85 H 161/89 H Pulse Oximetry 100 99 100 Oxygen Delivery Method Room Air Room Air Room Air 11/22/24 11:47 11/22/24 11:58 11/22/24 12:05 Temperature 93.3 F L 93.4 F L 93.4 F L Pulse Rate 72 72 71 Respiratory Rate 15 15 12 Blood Pressure 132/89 137/84 135/84 Pulse Oximetry 100 99 100 Oxygen Delivery Method Room Air Room Air Room Air 11/22/24 12:56 11/22/24 13:04 Temperature 93.4 F L 93.5 F L Pulse Rate 73 73 Respiratory Rate 15 18 Blood Pressure 124/86 111/81 Pulse Oximetry 99 98 Oxygen Delivery Method Room Air Room Air BMI result Body Mass Index 16.3 Appearance: Lethargic male, groaning he is cold. appears ill Head: normocephalic, atraumatic. Eyes: Pupils equal, round and reactive to light. ENT: Pharynx normal. No tonsillar swelling or exudate. Neck: Normal inspection. Neck supple. CVS: Normal heart rate and rhythm. Pulses normal. Respiratory: No respiratory distress. Breath sounds normal. Abdomen: Flat, Soft and nontender. +BS x4 Skin: Skin warm and dry. Normal skin color. Normal skin turgor. No rashes. Extremities: No lower extremity edema. No joint swelling. LUE AV fistula with good thrill Neuro/psych: lethargic, groaning, does not follow commands or answer questions. Medications Administered Discontinued Medications Generic Name Dose Route Start Last Admin Trade Name Jackie PRN Reason Stop Dose Admin Dextrose 25 gm 11/22/24 09:34 11/22/24 10:09 Dextrose 50 % 25 Gm/50 Ml Syringe IVPUSH 11/22/24 09:35 25 gm ONCE ONE Administration Dextrose 25 gm 11/22/24 10:35 11/22/24 11:10 Dextrose 50 % 25 Gm/50 Ml Syringe IVPUSH 11/22/24 10:36 25 gm ONCE ONE Administration Glucagon 1 mg 11/22/24 09:38 11/22/24 10:09 Glucagon Hcl 1 Mg Vial IM 11/22/24 09:39 1 mg ONCE ONE Administration Lactated Ringer's 1,000 mls @ 999 mls/hr 11/22/24 09:45 11/22/24 11:40 Lr IV 11/22/24 10:45 Infused .Q1H1M ESTELA Infusion Piperacillin Sod/Tazobactam 50 mls @ 100 mls/hr 11/22/24 09:47 11/22/24 11:16 Sod 2.25 gm/ Sodium Chloride IV 11/22/24 10:16 Infused ONCE ONE Infusion Vancomycin HCl 1,250 mg/ 250 mls @ 166.667 mls/hr 11/22/24 10:45 11/22/24 13:30 Sodium Chloride IV 11/22/24 12:14 Infused ONCE ONE Infusion Medical Decision Making Medical Decision Making MDM Narrative: 64 yo male (FULL CODE) with history of ESRD on HD T//Sat, COPD, chronic afib not on anticoagluation, HTN, HFpEF, chronic respiratory failure with hypoxia, DM1 with polyneuropathy, protein-calorie malnutrition, PVD, anxiety, dysphagia, hx falls, who presents to the ER from [facility] for AMS and hypoglycemia. glucose back down to 36 on arrival here. SBP improved. IM glucagon given awaiting IV access. Broad spectrum abx ordered w/ concern for sepsis, recent aspiration - vanco/zosyn ordered. 10:11 - EKG with marked new deep t-wave inversions in leads V2-V4. still altered but reporting some chest discomfort, unable to qualify or quantify. requiring more D50 for recurrent hypoglycemia. 11:00 - troponin 19, low suspicion for acute ischemia. LFTs up which is new so RUQ U/S ordered. nontender abdomen. no vomiting. 12:06 - glucose now 200s. remains hypothermic on kailyn hugger. lactic 2.2 which normalized to 1.8 with 1L IVF. remains hemodynamically stable. CXR with small pleural effusion, LLL round nodule, and ?RML opacity 1:30 - glucose stable x2 now. will plan for admission for further management. dry CT chest ordered for further evaluation of abnormal CXR Differential Diagnosis Differential Diagnoses: The differential diagnosis associated with the presentation includes hypoglycemia due to sepsis, brittle DM, aspiration pneumonia, adrenal insufficiency, exogenous insulin overdose, insulinoma, failure to thrive Admission/Observation Consideration of admission/observation: Escalation of care including admission/observation considered Consult Healthcare Provider Management of the patient was discussed with: Hospitalist Dr. Krishnamurthy Lab Data [facility] Lab Attestation statement: I reviewed the patient's lab results. pancytopenia, CKD with stable lytes, new transaminitis 11/22/24 10:05 11/22/24 10:04 Labs: Lab Results 11/22/24 11/22/24 11/22/24 Range/Units 09:34 09:36 09:55 WBC (4.8-10.8) X10*3/uL RBC (4.60-5.80) X10*6/uL Hgb (14.0-18.0) g/dl Hct (42.0-52.0) % MCV (80.0-98.0) fL MCH (27.0-33.0) pg MCHC (31.0-36.0) g/dl RDW (11.0-16.0) % Plt Count (160-400) X10*3/uL MPV Immature Gran % (Auto) (0.0-0.4) % Neut % (Auto) (45-73) % Lymph % (Auto) (20-40) % [place] % (Auto) (2-11) % Eos % (Auto) (0-4) % Baso % (Auto) (0-2) % Lymph # (Auto) (1.2-4.9) X10*3/uL [place] # (Auto) (0.1-1.2) X10*3/uL Eos # (Auto) (0.0-0.4) X10*3/uL Baso # (Auto) (0.0-0.2) X10*3/uL Abs Immat Gran (auto) (0.00-0.03) X10*3/uL Absolute Neuts (auto) (2.0-8.3) x10*3/uL Absolute Nucleated RBC (0.0-0.012) X10*3/uL Nucleated RBC % (auto) (0.0-0.2) /100WBC VBG pH (7.32-7.43) VBG pCO2 mmHg VBG pO2 mmHg VBG HCO3 (22-26) mmol/L VBG O2 Saturation % VBG Base Excess mmol/L Sodium (135-145) mmol/L Potassium (3.3-5.1) mmol/L Chloride (96-108) mmol/L Carbon Dioxide (22-29) mmol/L Anion Gap (12-20) BUN (9-16) mg/dL Creatinine (0.5-1.4) mg/dL Estim Creat Clear Calc Estimated GFR POC Glucose 36 L* 49 L* 43 L* (60-115) mg/dL Random Glucose (60-115) mg/dL Lactic Acid (0.5-2.0) mmol/L Lactic Acid F/U @ 2Hr (0.5-2.0) mmol/L Calcium (8.4-10.2) mg/dL Phosphorus (2.7-4.5) mg/dL Magnesium (1.6-2.6) mg/dL Total Bilirubin (0.0-1.0) mg/dL Direct Bilirubin (0.0-0.5) mg/dL AST (5-37) U/L ALT (0-40) U/L Alkaline Phosphatase (39-117) U/L Ammonia (13-55) umol/L Troponin I High Sens (<3.5-35.0) ng/L B-Natriuretic Peptide (<100) pg/mL Total Protein (6.5-8.0) g/dL Albumin (3.5-5.0) g/dL Lipase (8-78) U/L Influenza Type A (PCR) (Negative) Influenza Type B (PCR) (Negative) RSV RNA Qual (PCR) (Negative) SARS-CoV-2 RNA (RT-PCR) (Negative) 11/22/24 11/22/24 11/22/24 Range/Units 10:04 10:05 10:10 WBC 4.2 L (4.8-10.8) X10*3/uL RBC 3.70 L (4.60-5.80) X10*6/uL Hgb 9.9 L D (14.0-18.0) g/dl Hct 31.5 L D (42.0-52.0) % MCV 85.1 (80.0-98.0) fL MCH 26.8 L (27.0-33.0) pg MCHC 31.4 (31.0-36.0) g/dl RDW 18.8 H (11.0-16.0) % Plt Count 60 L D (160-400) X10*3/uL MPV Not Reportable Immature Gran % (Auto) 0.2 (0.0-0.4) % Neut % (Auto) 53.7 (45-73) % Lymph % (Auto) 38.2 (20-40) % [place] % (Auto) 5.9 (2-11) % Eos % (Auto) 1.0 (0-4) % Baso % (Auto) 1.0 (0-2) % Lymph # (Auto) 1.6 (1.2-4.9) X10*3/uL [place] # (Auto) 0.3 (0.1-1.2) X10*3/uL Eos # (Auto) 0.0 (0.0-0.4) X10*3/uL Baso # (Auto) 0.0 (0.0-0.2) X10*3/uL Abs Immat Gran (auto) 0.01 (0.00-0.03) X10*3/uL Absolute Neuts (auto) 2.3 (2.0-8.3) x10*3/uL Absolute Nucleated RBC 0.040 H (0.0-0.012) X10*3/uL Nucleated RBC % (auto) 1.0 H (0.0-0.2) /100WBC VBG pH 7.53 H (7.32-7.43) VBG pCO2 40 mmHg VBG pO2 45 mmHg VBG HCO3 34 H (22-26) mmol/L VBG O2 Saturation 75.0 % VBG Base Excess 11.0 mmol/L Sodium 134 L (135-145) mmol/L Potassium 4.5 (3.3-5.1) mmol/L Chloride 96 (96-108) mmol/L Carbon Dioxide 28 (22-29) mmol/L Anion Gap 15 (12-20) BUN 30 H (9-16) mg/dL Creatinine 3.75 H (0.5-1.4) mg/dL Estim Creat Clear Calc 15.7 Estimated GFR 16 POC Glucose (60-115) mg/dL Random Glucose 74 (60-115) mg/dL Lactic Acid 2.2 H* (0.5-2.0) mmol/L Lactic Acid F/U @ 2Hr (0.5-2.0) mmol/L Calcium 8.2 L D (8.4-10.2) mg/dL Phosphorus 4.0 (2.7-4.5) mg/dL Magnesium 2.2 (1.6-2.6) mg/dL Total Bilirubin 0.5 (0.0-1.0) mg/dL Direct Bilirubin 0.2 (0.0-0.5) mg/dL AST 85 H (5-37) U/L ALT 62 H (0-40) U/L Alkaline Phosphatase 198 H (39-117) U/L Ammonia 31 (13-55) umol/L Troponin I High Sens 19.0 (<3.5-35.0) ng/L B-Natriuretic Peptide 3651 H (<100) pg/mL Total Protein 5.2 L (6.5-8.0) g/dL Albumin 2.2 L (3.5-5.0) g/dL Lipase 14 (8-78) U/L Influenza Type A (PCR) (Negative) Influenza Type B (PCR) (Negative) RSV RNA Qual (PCR) (Negative) SARS-CoV-2 RNA (RT-PCR) (Negative) 11/22/24 11/22/24 11/22/24 Range/Units 10:13 10:26 11:56 WBC (4.8-10.8) X10*3/uL RBC (4.60-5.80) X10*6/uL Hgb (14.0-18.0) g/dl Hct (42.0-52.0) % MCV (80.0-98.0) fL MCH (27.0-33.0) pg MCHC (31.0-36.0) g/dl RDW (11.0-16.0) % Plt Count (160-400) X10*3/uL MPV Immature Gran % (Auto) (0.0-0.4) % Neut % (Auto) (45-73) % Lymph % (Auto) (20-40) % [place] % (Auto) (2-11) % Eos % (Auto) (0-4) % Baso % (Auto) (0-2) % Lymph # (Auto) (1.2-4.9) X10*3/uL [place] # (Auto) (0.1-1.2) X10*3/uL Eos # (Auto) (0.0-0.4) X10*3/uL Baso # (Auto) (0.0-0.2) X10*3/uL Abs Immat Gran (auto) (0.00-0.03) X10*3/uL Absolute Neuts (auto) (2.0-8.3) x10*3/uL Absolute Nucleated RBC (0.0-0.012) X10*3/uL Nucleated RBC % (auto) (0.0-0.2) /100WBC VBG pH (7.32-7.43) VBG pCO2 mmHg VBG pO2 mmHg VBG HCO3 (22-26) mmol/L VBG O2 Saturation % VBG Base Excess mmol/L Sodium (135-145) mmol/L Potassium (3.3-5.1) mmol/L Chloride (96-108) mmol/L Carbon Dioxide (22-29) mmol/L Anion Gap (12-20) BUN (9-16) mg/dL Creatinine (0.5-1.4) mg/dL Estim Creat Clear Calc Estimated GFR POC Glucose 47 L* 212 H (60-115) mg/dL Random Glucose (60-115) mg/dL Lactic Acid (0.5-2.0) mmol/L Lactic Acid F/U @ 2Hr (0.5-2.0) mmol/L Calcium (8.4-10.2) mg/dL Phosphorus (2.7-4.5) mg/dL Magnesium (1.6-2.6) mg/dL Total Bilirubin (0.0-1.0) mg/dL Direct Bilirubin (0.0-0.5) mg/dL AST (5-37) U/L ALT (0-40) U/L Alkaline Phosphatase (39-117) U/L Ammonia (13-55) umol/L Troponin I High Sens (<3.5-35.0) ng/L B-Natriuretic Peptide (<100) pg/mL Total Protein (6.5-8.0) g/dL Albumin (3.5-5.0) g/dL Lipase (8-78) U/L Influenza Type A (PCR) NEGATIVE (Negative) Influenza Type B (PCR) NEGATIVE (Negative) RSV RNA Qual (PCR) NEGATIVE (Negative) SARS-CoV-2 RNA (RT-PCR) NEGATIVE (Negative) 11/22/24 11/22/24 Range/Units 12:59 13:25 WBC (4.8-10.8) X10*3/uL RBC (4.60-5.80) X10*6/uL Hgb (14.0-18.0) g/dl Hct (42.0-52.0) % MCV (80.0-98.0) fL MCH (27.0-33.0) pg MCHC (31.0-36.0) g/dl RDW (11.0-16.0) % Plt Count (160-400) X10*3/uL MPV Immature Gran % (Auto) (0.0-0.4) % Neut % (Auto) (45-73) % Lymph % (Auto) (20-40) % [place] % (Auto) (2-11) % Eos % (Auto) (0-4) % Baso % (Auto) (0-2) % Lymph # (Auto) (1.2-4.9) X10*3/uL [place] # (Auto) (0.1-1.2) X10*3/uL Eos # (Auto) (0.0-0.4) X10*3/uL Baso # (Auto) (0.0-0.2) X10*3/uL Abs Immat Gran (auto) (0.00-0.03) X10*3/uL Absolute Neuts (auto) (2.0-8.3) x10*3/uL Absolute Nucleated RBC (0.0-0.012) X10*3/uL Nucleated RBC % (auto) (0.0-0.2) /100WBC VBG pH (7.32-7.43) VBG pCO2 mmHg VBG pO2 mmHg VBG HCO3 (22-26) mmol/L VBG O2 Saturation % VBG Base Excess mmol/L Sodium (135-145) mmol/L Potassium (3.3-5.1) mmol/L Chloride (96-108) mmol/L Carbon Dioxide (22-29) mmol/L Anion Gap (12-20) BUN (9-16) mg/dL Creatinine (0.5-1.4) mg/dL Estim Creat Clear Calc Estimated GFR POC Glucose 196 H (60-115) mg/dL Random Glucose (60-115) mg/dL Lactic Acid (0.5-2.0) mmol/L Lactic Acid F/U @ 2Hr 1.8 (0.5-2.0) mmol/L Calcium (8.4-10.2) mg/dL Phosphorus (2.7-4.5) mg/dL Magnesium (1.6-2.6) mg/dL Total Bilirubin (0.0-1.0) mg/dL Direct Bilirubin (0.0-0.5) mg/dL AST (5-37) U/L ALT (0-40) U/L Alkaline Phosphatase (39-117) U/L Ammonia (13-55) umol/L Troponin I High Sens (<3.5-35.0) ng/L B-Natriuretic Peptide (<100) pg/mL Total Protein (6.5-8.0) g/dL Albumin (3.5-5.0) g/dL Lipase (8-78) U/L Influenza Type A (PCR) (Negative) Influenza Type B (PCR) (Negative) RSV RNA Qual (PCR) (Negative) SARS-CoV-2 RNA (RT-PCR) (Negative) Independent Interpretation I performed an independent interpretation of an: EKG, Plain X-Ray and CT Scan Interpretation: CT head without acute bleed or edema CXR with right sided pleural effusion, ?RML infiltrate, soft tissue mass/round lesion seen in LLL Radiology Impression Discussion of test interpretation with radiology: I have reviewed the radiologist's reading. Radiologist Impression: CXR IMPRESSION: 1. Peripheral left basilar ovoid 3.8 cm masslike opacity. Increased opacity of the peripheral right midlung. These findings may represent soft tissue summation or external artifact, although consider further evaluation with standing PA and lateral views of the chest to evaluate for persistence and to exclude pulmonary mass and airspace disease. 2. The right costophrenic angle is blunted, which can be seen with a small pleural effusion, although the examination was performed supine. Independent Historian Clinical information obtained from an independent historian. History obtained from or confirmed by: EMS External Record Review External record reviewed: Outpatient record, Prior outpatient labs and Prior outpatient radiology Tests considered The following testing was considered but not selected: CT chest for further evaluation of abnormal CXR findings, can be done inpatient if clinically warranted Prescription Management I considered prescription management with: Antiviral and Antibiotic Chronic Conditions Patient?s care impacted by: Diabetes, Hypertension and Other (ESRD) Social Determinants Patient?s care significantly limited by Social Determinants of Health including: Problems related to primary support group Critical Care Time Critical Care Time Critical Care Time: Yes Total Critical Care Time: 56 Attestation: I have personally provided critical care time exclusive of time spent on separately billable procedures. Time includes review of lab data, radiology results, discussion with consultants, and monitoring for potential decompensation. Intervention performed as documented. Discharge Plan Discharge Clinical Impression: Acute metabolic encephalopathy due to hypoglycemia Hypothermia Qualifiers: Encounter type: initial encounter Qualified Code(s): T68.XXXA - Hypothermia, initial encounter Patient Disposition: Admitted As Inpatient Print Language: Greenlandic
[2024-11-22] MEDS: Piperacillin Sodium/Tazobactam 2.25 GM in 0.9 % Sodium Chloride 50 ML IV ×2 (10:06→21:44)
[2024-11-22] MEDS: Dextrose 50 % 25 GM/50 ML SYRINGE IVPUSH ×2 (10:09→11:10)
[2024-11-22] MEDS: Lactated Ringers 1,000 ML 999 ML IV (10:09)
[2024-11-22] MEDS: glucagon HCL 1 MG VIAL IM (10:09)
[2024-11-22 10:11] LABS: MANUAL DIFF FLAG NO
[2024-11-22 10:17] LABS: Venous Blood Gas Refer to POC result
[2024-11-22 10:18] LABS: VBG HCO3 34 mmol/L (22-26); VBG pCO2 40 mmHg; VBG pH 7.53 (7.32-7.43); VBG pO2 45 mmHg
[2024-11-22 10:19] LABS: Hematocrit 31.5 % (42.0-52.0); Hemoglobin 9.9 g/dl (14.0-18.0); Imm Gran Abs Auto 0.01 X10*3/uL (0.00-0.03); Imm Gran Pct Auto 0.2 % (0.0-0.4); Lymphocytes Absolute Auto 1.6 X10*3/uL (1.2-4.9); Lymphocytes Percent Auto 38.2 % (20-40); Mean Corpuscular HGB Conc 31.4 g/dl (31.0-36.0); Mean Corpuscular Hemoglobin 26.8 pg (27.0-33.0); Mean Corpuscular Volume 85.1 fL (80.0-98.0); Monocytes Absolute Auto 0.3 X10*3/uL (0.1-1.2); Monocytes Percent Auto 5.9 % (2-11); Neutrophils Absolute Auto 2.3 x10*3/uL (2.0-8.3); Neutrophils Percent Auto 53.7 % (45-73); Red Cell Distribution Width 18.8 % (11.0-16.0)
[2024-11-22 10:21] LABS: Ammonia 31 umol/L (13-55)
[2024-11-22 10:30] LABS: Alanine Aminotransferase 62 U/L (0-40); Albumin Level 2.2 g/dL (3.5-5.0); Anion Gap 15 (12-20); Aspartate Amino Transferase 85 U/L (5-37); Bilirubin Direct 0.2 mg/dL (0.0-0.5); Bilirubin Total 0.5 mg/dL (0.0-1.0); Blood Urea Nitrogen 30 mg/dL (9-16); Calcium 8.2 mg/dL (8.4-10.2); Carbon Dioxide 28 mmol/L (22-29); Chloride 96 mmol/L (96-108); Creatinine Clr Calc Pharmacy 15.7; Estimated Glomerular Filt Rate 16; Glucose Random 74 mg/dL (60-115); Lipase 14 U/L (8-78); Magnesium 2.2 mg/dL (1.6-2.6); Potassium 4.5 mmol/L (3.3-5.1); Sodium 134 mmol/L (135-145); Total Protein 5.2 g/dL (6.5-8.0)
[2024-11-22 10:34] LABS: B Type Natriuretic Peptide 3651 pg/mL (<100)
[2024-11-22 10:41] LABS: Platelet Count 60 X10*3/uL (160-400); White Blood Count 4.2 X10*3/uL (4.8-10.8)
[2024-11-22 10:50] LABS: Alkaline Phosphatase 198 U/L (39-117)
[2024-11-22 10:52] LABS: Lactic Acid 2.2 mmol/L (0.5-2.0)
[2024-11-22] MEDS: vancomycin HCL 1,250 MG in 0.9 % Sodium Chloride 250 ML 166.67 MG IV (11:21)
[2024-11-22 11:22] LABS: Influenza A PCR NEGATIVE (Negative); Influenza B PCR NEGATIVE (Negative); Resp Syncy Virus RNA Qual PCR NEGATIVE (Negative); SARS COV2 PCR INHOUSE NEGATIVE (Negative)
--- NOTE | 2024-11-22 11:33 | PC.NURSE ---
Pt [facility] from [facility] for increased AMS/lethargy. Per snf, staff got him up to his wheelchair for breakfast and noticed he was lethargic/not at his baseline (a/ox3, wheelchair bound.) Upon arrival, pt lethargic, grunting respirations, responsive to painful stimuli only. POC taken read 40s, pt skin cool/clammy to touch, radial pulses weak/cold extremities. ALBERTO Kasper at bedside for assessment. 20g ultrasound guided IV placed R upper bicep by RN Shahnaz. Refer to MAR for medications given. Labs/cultures obtained and sent to lab. Respirations even and unlabored, placed on air sampling and monitoring, nsr HR 60s, bp cycling q5 to monitor. Rectal temp 95.9- placed on bare hugger and rectal probe placed. Rectal probe reading 93.9, PA aware. Call galvez within reach, all needs met at this time.
[2024-11-22 12:19] LABS: Reflex Lactate? Lactic Acid Added
[2024-11-22 13:20] LABS: Glucose, Whole Blood 49 mg/dL (60-115)
[2024-11-22 13:20] LABS: Glucose, Whole Blood 212 mg/dL (60-115)
[2024-11-22 13:20] LABS: Glucose, Whole Blood 47 mg/dL (60-115)
[2024-11-22 13:20] LABS: Glucose, Whole Blood 43 mg/dL (60-115)
[2024-11-22 13:20] LABS: Glucose, Whole Blood 36 mg/dL (60-115)
[2024-11-22 13:20] LABS: ~Lactic Acid-LAB USE ONLY 1.8 mmol/L (0.5-2.0)
[2024-11-22 13:28] LABS: Glucose, Whole Blood 196 mg/dL (60-115)
--- NOTE | 2024-11-22 14:04 | PHA.MEDREC ---
Pharmacy Consult ? Medication Reconciliation Pharmacy has completed the medication reconciliation.med rec entered via med list from [facility]
--- NOTE | 2024-11-22 15:49 | PM.IMHP ---
History of Present Illness Date of Service: 11/22/24 <ALBERTO Mcintosh - Last Filed: 11/23/24 01:53> Attending physician on admission: Leana Krishnamurthy <ALBERTO Mcintosh - Last Filed: 11/23/24 01:53> Chief Complaint: AMS, lethargy <ALBERTO Mcintosh - Last Filed: 11/23/24 01:53> Pt is a 64-year-old male with a PMH significant for?ESRD on HD T//Sat, type I brittle diabetes, NSTEMI 11/2022, HLD, COPD, BPH, CHF, seizure disorder, anemia of chronic disease, chronic thrombocytopenia, hepatitis C, unspecified dementia, mood disorder, among others who presents to the ED from [facility] for evaluation of increased confusion and lethargy. Per staff pt was in his normal state of health this morning but became limp and unresponsive when transferred to his wheelchair. Normally AOx3 and uses wheelchair at baseline. In the ED pt was noted to be responsive to painful stimuli only, grunting but not answering questions, hypothermic as low as 93.2, and hypoglycemic in the 30s and 40s. Pt seen and evaluated where he is still in [facility]. Pt is alert and oriented to self and place but not to time or situation. Complains of pain all over though primarily in back. Denies chest pain, pressure, or palpitations. No nausea, vomiting, or abd pain. Of note, pt was recently admitted to [facility] on 10/26-10/31 for failure to thrive, dehydration, and encephlopathy thought secondary to multifocal pneumonia. Was discharged to [facility] and represented 3 days later on 11/03 with recurrent lethargy and encephalopathy. Was admitted again for multifocal peumonia, aspiration pneumonia, and cavitary lesions. TB ruled out with negative AFB sputum cultures x3. Pt had low p.o. intake but refused NG or G-tube. Was discharged back to [facility] on Augmentin x4 weeks, set to end on 12/04. In the ED pt was hypothermic as low as 93.2, bradypneic at 10, and hypertensive as high as 161/89. Labs were significant for multiple episodes of hypoglycemia with POC of 36, 49, 43, and 47. Lactic acid 2.2 with repeat 1.8. AST 85, ALT 62, alk-phos 198. BNP 3651. Thrombocytopenia of 60. Leukopenia 4.2 (chronically low). Stable H&H 9.9/31.5 (around baseline). Chronic hyponatremia of 134. Tested negative for flu, COVID, RSV. VBG with pH 7.53, pCO2 40, and bicarb 34. CXR showed peripheral left basilar or ovoid 3.8 cm masslike opacity, possibly with representing soft tissue summation or external. CT?of head without acute intracranial findings. X-ray of hips and pelvis without acute findings. Abdominal ultrasound found coarsened hepatic echotexture without focal mass or biliary obstruction. Also showed right pleural effusion and small amount of ascites. CT of chest found bibasilar atelectasis vs pneumonia with small bilateral pleural effusions and suspicious left lower lobe nodule. EKG demonstrated normal sinus rhythm with new profound t-wave depressions in anterolateral leads. Pt was treated in the ED with dextrose 25 g x2, glucagon 1 mg IM, IVF, vanc and Zosyn. Pt is admitted to the hospital for hypoglycemia, hypthermia, and acute metabolic encephalopathy in the setting of likely aspiration pneumonia. <ALBERTO Mcintosh - Last Filed: 11/23/24 01:53> Review of Systems Review of Systems: Negative except for that which is stated in the HPI. Though it should be noted pt is a poor historian. <ALBERTO Mcintosh - Last Filed: 11/23/24 01:53> [facility] Medical History: Medical History Hypernatremia Vitamin D deficiency Hyperkalemia Hyperparathyroidism Dysphagia Hyperlipemia Hypertension Major depressive disorder Urine retention Systolic CHF Dementia Benign prostate hyperplasia Nicotine dependence Constipation Osteoarthritis Anemia Peripheral vascular disease Atrial fibrillation Gastrointestinal hemorrhage End stage renal disease on dialysis Hepatitis C COPD (chronic obstructive pulmonary disease) Cellulitis Streptococcal sepsis, unspecified Bacteremia Septic shock Sepsis Diabetes mellitus type 1 Hypertensive cardiopathy ESRD (end stage renal disease) on dialysis <ALBERTO Mcintosh - Last Filed: 11/23/24 01:53> Social History: Social History Household Members: Other Household Members Other:: retirement Housing: Custodial Do you presently have visiting nurse or other home services: Yes Unable to assess alcohol history related to: Unable to respond Alcohol intake: never Patient Tobacco Use Status: Never used Tobacco Tobacco use type: Cigarette Smoked in Last 30 Days: No Second Hand Smoke Exposure: No Use of substances other than those prescribed or required for medical reasons: No Advance Directives: Yes Advance Directives on File: Yes Advance Directives Date on File: 06/22/22 Do you have a plan to hurt others: No Plan Nutrition Risks: No Nutritional Risk service: No Current occupational status: disabled <ALBERTO Mcintosh - Last Filed: 11/23/24 01:53> Meds Allergies/Adverse reactions: Allergies Allergy/AdvReac Type Severity Reaction Status Date / Time No Known Allergies Allergy Verified 11/22/24 10:28 <ALBERTO Mcintosh - Last Filed: 11/23/24 01:53> Home medications: Home Medications ?Medication ?Instructions ?Recorded ?Confirmed ?Last Taken ?Type duloxetine 60 mg capsule,delayed 1 cap PO DAILY 06/17/22 11/22/24 11/21/24 History release insulin lispro 100 unit/mL See Protocol subcut TIDAC 06/17/22 11/22/24 11/21/24 History subcutaneous solution (Humalog U-100 Insulin) mirtazapine 15 mg tablet 1 tab PO BEDTIME 06/17/22 11/22/24 11/21/24 History tamsulosin 0.4 mg capsule 1 cap PO BEDTIME 06/17/22 11/22/24 11/21/24 History acetaminophen 325 mg tablet 650 mg PO Q6H PRN Fever Or Pain 11/20/22 11/22/24 07/01/24 History acetaminophen 650 mg rectal 650 mg KS Q6H PRN Fever Or Pain 11/20/22 11/22/24 Unknown History suppository insulin glargine 100 unit/mL (3 1 unit subcut BEDTIME 11/20/22 11/22/24 11/21/24 History mL) subcutaneous pen (Lantus Solostar U-100 Insulin) melatonin 5 mg tablet 5 mg PO BEDTIME Sleep 11/20/22 11/22/24 11/21/24 History oxycodone 5 mg tablet 5 mg PO Q6H PRN Pain (Scale Score 11/20/22 11/22/24 11/20/24 History 4-6) amoxicillin 500 mg-potassium 1 tab PO BEDTIME 11/22/24 11/22/24 11/21/24 History clavulanate 125 mg tablet (Augmentin) atorvastatin 40 mg tablet 40 mg PO BEDTIME 11/22/24 11/22/24 11/21/24 History cholecalciferol (vitamin D3) 1,250 1,250 mcg PO QMONTH 11/22/24 11/22/24 11/01/24 History mcg (50,000 unit) capsule cyanocobalamin (vitamin B-12) 1,000 mcg PO DAILY 11/22/24 11/22/24 11/21/24 History 1,000 mcg tablet epinephrine 0.3 mg/0.3 mL 0.3 mg IM Q5M PRN Anaphylaxis 11/22/24 11/22/24 Unknown History injection, auto-injector (EpiPen) ergocalciferol (vitamin D2) 1,250 1,250 mcg PO WE@0900 11/22/24 11/22/24 11/18/24 History mcg (50,000 unit) capsule folic acid 1 mg tablet 1 mg PO DAILY 11/22/24 11/22/24 11/21/24 History glucagon 1 mg/0.2 mL subcutaneous 1 mg subcut Q15M PRN low BS 11/22/24 11/22/24 Unknown History solution (Gvoke) naloxone 0.4 mg/mL injection 0.4 mg subcut Q2M PRN Anaphylaxis 11/22/24 11/22/24 Unknown History solution naloxone 4 mg/actuation nasal spray 4 mg intranasal Q2M PRN overdose 11/22/24 11/22/24 Unknown History thiamine HCl (vitamin B1) 100 mg 100 mg PO DAILY 11/22/24 11/22/24 11/21/24 History tablet <ALBERTO Mcintosh - Last Filed: 11/23/24 01:53> Physical Exam Vital Signs and Narrative: Vital Signs: Last Vital Signs Temp 94.3 F L 11/22/24 15:08 Pulse 75 11/22/24 15:08 Resp 15 11/22/24 15:08 BP 113/81 11/22/24 15:08 Pulse Ox 93 11/22/24 15:08 O2 Del Method Room Air 11/22/24 15:08 BMI result Body Mass Index 16.3 <ALBERTO Mcintosh - Last Filed: 11/23/24 01:53> General: Alert and oriented to person and time, not to place or situation. Pt frail, cachectic. Moaning and not responding to every inquiry. Ill-appearing. Resp: CTA bilaterally CVS: S1, S2, RRR GI: +BS, NT, no distention. Abdomen concave. Skin: Warm, dry Neuro: Moves extremities spontaneously. Not following all commands or responding to all queries. Extremities: No edema <ALBERTO Mcintosh - Last Filed: 11/23/24 01:53> Results Labs CBC and Chem 7: 11/23/24 04:33 11/23/24 04:33 <ALBERTO Mcintosh - Last Filed: 11/23/24 01:53> Labs: Laboratory Results - last 24 hr 11/22/24 11/22/24 11/22/24 09:34 09:36 09:55 MCV MCH MCHC RDW Plt Count MPV Immature Gran % (Auto) Neut % (Auto) Lymph % (Auto) [place] % (Auto) Eos % (Auto) Baso % (Auto) Lymph # (Auto) [place] # (Auto) Eos # (Auto) Baso # (Auto) Abs Immat Gran (auto) Absolute Neuts (auto) Absolute Nucleated RBC Nucleated RBC % (auto) VBG pH VBG pCO2 VBG pO2 VBG HCO3 VBG O2 Saturation VBG Base Excess Anion Gap Estim Creat Clear Calc Estimated GFR POC Glucose 36 L* 49 L* 43 L* Random Glucose Lactic Acid Lactic Acid F/U @ 2Hr Calcium Phosphorus Magnesium Total Bilirubin Direct Bilirubin AST ALT Alkaline Phosphatase Ammonia B-Natriuretic Peptide Total Protein Albumin Lipase Influenza Type A (PCR) Influenza Type B (PCR) RSV RNA Qual (PCR) SARS-CoV-2 RNA (RT-PCR) 11/22/24 11/22/24 11/22/24 10:04 10:05 10:10 MCV 85.1 MCH 26.8 L MCHC 31.4 RDW 18.8 H Plt Count 60 L D MPV Not Reportable Immature Gran % (Auto) 0.2 Neut % (Auto) 53.7 Lymph % (Auto) 38.2 [place] % (Auto) 5.9 Eos % (Auto) 1.0 Baso % (Auto) 1.0 Lymph # (Auto) 1.6 [place] # (Auto) 0.3 Eos # (Auto) 0.0 Baso # (Auto) 0.0 Abs Immat Gran (auto) 0.01 Absolute Neuts (auto) 2.3 Absolute Nucleated RBC 0.040 H Nucleated RBC % (auto) 1.0 H VBG pH 7.53 H VBG pCO2 40 VBG pO2 45 VBG HCO3 34 H VBG O2 Saturation 75.0 VBG Base Excess 11.0 Anion Gap 15 Estim Creat Clear Calc 15.7 Estimated GFR 16 POC Glucose Random Glucose 74 Lactic Acid 2.2 H* Lactic Acid F/U @ 2Hr Calcium 8.2 L D Phosphorus 4.0 Magnesium 2.2 Total Bilirubin 0.5 Direct Bilirubin 0.2 AST 85 H ALT 62 H Alkaline Phosphatase 198 H Ammonia 31 B-Natriuretic Peptide 3651 H Total Protein 5.2 L Albumin 2.2 L Lipase 14 Influenza Type A (PCR) Influenza Type B (PCR) RSV RNA Qual (PCR) SARS-CoV-2 RNA (RT-PCR) 11/22/24 11/22/24 11/22/24 10:13 10:26 11:56 MCV MCH MCHC RDW Plt Count MPV Immature Gran % (Auto) Neut % (Auto) Lymph % (Auto) [place] % (Auto) Eos % (Auto) Baso % (Auto) Lymph # (Auto) [place] # (Auto) Eos # (Auto) Baso # (Auto) Abs Immat Gran (auto) Absolute Neuts (auto) Absolute Nucleated RBC Nucleated RBC % (auto) VBG pH VBG pCO2 VBG pO2 VBG HCO3 VBG O2 Saturation VBG Base Excess Anion Gap Estim Creat Clear Calc Estimated GFR POC Glucose 47 L* 212 H Random Glucose Lactic Acid Lactic Acid F/U @ 2Hr Calcium Phosphorus Magnesium Total Bilirubin Direct Bilirubin AST ALT Alkaline Phosphatase Ammonia B-Natriuretic Peptide Total Protein Albumin Lipase Influenza Type A (PCR) NEGATIVE Influenza Type B (PCR) NEGATIVE RSV RNA Qual (PCR) NEGATIVE SARS-CoV-2 RNA (RT-PCR) NEGATIVE 11/22/24 11/22/24 12:59 13:25 MCV MCH MCHC RDW Plt Count MPV Immature Gran % (Auto) Neut % (Auto) Lymph % (Auto) [place] % (Auto) Eos % (Auto) Baso % (Auto) Lymph # (Auto) [place] # (Auto) Eos # (Auto) Baso # (Auto) Abs Immat Gran (auto) Absolute Neuts (auto) Absolute Nucleated RBC Nucleated RBC % (auto) VBG pH VBG pCO2 VBG pO2 VBG HCO3 VBG O2 Saturation VBG Base Excess Anion Gap Estim Creat Clear Calc Estimated GFR POC Glucose 196 H Random Glucose Lactic Acid Lactic Acid F/U @ 2Hr 1.8 Calcium Phosphorus Magnesium Total Bilirubin Direct Bilirubin AST ALT Alkaline Phosphatase Ammonia B-Natriuretic Peptide Total Protein Albumin Lipase Influenza Type A (PCR) Influenza Type B (PCR) RSV RNA Qual (PCR) SARS-CoV-2 RNA (RT-PCR) <ALBERTO Mcintosh - Last Filed: 11/23/24 01:53> Assessment and Plan (1) Hypothermia: Qualifiers: Encounter type: initial encounter Qualified Code(s): T68.XXXA - Hypothermia, initial encounter <ALBERTO Mcintosh - Last Filed: 11/23/24 01:53> Status: Acute <ALBERTO cMintosh - Last Filed: 11/23/24 01:53> (2) Aspiration pneumonia: Qualifiers: Aspiration pneumonia type: unspecified Lung location: unspecified part of lung Laterality: unspecified laterality Qualified Code(s): J69.0 - Pneumonitis due to inhalation of food and vomit <ALBERTO Mcintosh - Last Filed: 11/23/24 01:53> Status: Acute <ALBERTO Mcintosh - Last Filed: 11/23/24 01:53> Pt is a 64-year-old male with a PMH significant for?ESRD on HD /, type I brittle diabetes, NSTEMI 11/2022, HLD, COPD, BPH, CHF, seizure disorder, anemia of chronic disease, chronic thrombocytopenia, hepatitis C, unspecified dementia, mood disorder, among others who presents to the ED from [facility] for evaluation of increased confusion and lethargy. Pt is admitted to the hospital for hypoglycemia, hypothermia, and acute metabolic encephalopathy in the setting of likely aspiration pneumonia. Acute metabolic encephalopathy in the setting of likely aspiration pneumonia Pt altered, lethargic, CT of chest with suspicion of pneumonia Likely in the setting of continued aspiration Treated for likely aspiration x2 last month at [facility], currently on Augmentin x4 weeks, set to stop of 12/04 Does not meet sepsis criteria: hypothermia but no tacycardia, tachypnea, or leukocytosis/leukopenia Pt given IVF and started on broad spectrum abx in the ED Will treat with vanc and Zosyn, started 11/22/2024 NPO pending swallow eval Monitor mentation Follow blood cultures Hypoglycemia Pt diagnosed with type I brittle diabetes Multiple episodes of hypoglycemia with POC 36-49 Given Dextrose 25g IV x2 and glucagon 1 mg IM in the ED POC currently 183 Hold insulin for now POC q2h x6h Will place on dextrose fluids if hypoglycemia persists Hypothyroidism TSH 14.89, elevated from 6.51 at [facility] on 11/04/2024 Free T4 undetectable Will treat with 50 mcg IV push daily for now Endocrine consult for additional treatment recommendations Hypothermia Temp at low as 93.2 Has had multiple presentations with hypothermia, including here in 11/2022 and two weeks ago at [facility] on 10/24/2024 Likely multifactorial: in the setting of hypoglycemia, hypothyroidsim Continue Alie Hugger until temp sustained at >97.0 EKG changes EKG showing significant new t-wave depressions in anteriolateral leads Pt not complaining of chest pain Echocardiogram Monitor on telemetry Back pain Pt with similar complaints at [facility] MRI of lumbar spine on 11/03 without evidence of infection but showed diffusely abnormal marrow signal consistent with known chronic anemia and renal osteodystrophy. Also showed lobulated lesions throughout thoracic and lumbar spine though unlikely to be metastatic disease Transaminitis Hx of hep c, unclear if treated LFTs WNL at [facility] 2 weeks prior Check hepatitis panel Follow labs Hypoalbuminemia Albumen 2.2 Likely secondary to poor p.o. intake Will replace albumen Goals of care Pt with failure to thrive, poor p.o. intake, multiple recent hospitalizations for encephalopathy, hypothermia, and aspiration pneumonia Has refused NG tube and PEG tube placement [facility] had multiple conversations with daughter about goals of care and possible hospice Daughter continues to wish pt to be Full Code at this time ESRD on HD T//Sat Last dialyzed on 11/21/2024 Pt's resistance welder unclear Will consult [facility] nephrology Follow BMP HLD Continue statin once no longer NPO Mood disorder Continue home meds once no longer NPO BPH Continue tamsulosin once no loner NPO Moderate protein calorie malnutrition BMI 16.3 Nutrition consultation Glucerna supplementation Full Code, verified with HCP over phone Attending:?Dr. Krishnamurthy DVT Prophylaxis: Pneumatic compression due to thrombocytopenia Pt will require a hospitalization of at least two nights for treatment of?multiple issues including hypothermia, hypoglycemia, and acute metabolic encephalopathy in the setting of likely recurrent aspiration pneumonia requiring IV antibiotics. <ALBERTO Mcintosh - Last Filed: 11/23/24 01:53> Pt is a 64-year-old male with a PMH significant for?ESRD on HD T//Sat, type I brittle diabetes, NSTEMI 11/2022, HLD, COPD, BPH, CHF, seizure disorder, anemia of chronic disease, chronic thrombocytopenia, hepatitis C, unspecified dementia, mood disorder, among others who presents to the ED from [facility] for evaluation of increased confusion and lethargy. Pt is admitted to the hospital for hypoglycemia, hypothermia, and acute metabolic encephalopathy in the setting of likely aspiration pneumonia. Acute metabolic encephalopathy in the setting of likely aspiration pneumonia Pt altered, lethargic, CT of chest with suspicion of pneumonia Likely in the setting of continued aspiration Treated for likely aspiration x2 last month at [facility], currently on Augmentin x4 weeks, set to stop of 12/04 Does not meet sepsis criteria: hypothermia but no tacycardia, tachypnea, or leukocytosis/leukopenia Pt given IVF and started on broad spectrum abx in the ED Will treat with vanc and Zosyn, started 11/22/2024 NPO pending swallow eval Monitor mentation Follow blood cultures Hypoglycemia Pt diagnosed with type I brittle diabetes Multiple episodes of hypoglycemia with POC 36-49 Given Dextrose 25g IV x2 and glucagon 1 mg IM in the ED POC currently 183 Hold insulin for now POC q2h x6h Will place on dextrose fluids if hypoglycemia persists Hypothyroidism TSH 14.89, elevated from 6.51 at [facility] on 11/04/2024 Free T4 undetectable Will treat with 50 mcg IV push daily for now will consider endocrinology if needed. Hypothermia-Likely multifactorial: in the setting of hypoglycemia, hypothyroidsim Temp at low as 93.2 Has had multiple presentations with hypothermia, including here in 11/2022 and two weeks ago at [facility] on 10/24/2024 Continue Alie Hugger as needed pancytopenia ?unclear (chronic): moniter cbc if continue to worsen -will check hematology/oncology. EKG changes EKG showing significant new t-wave depressions in anteriolateral leads Pt not complaining of chest pain, trop negative Echocardiogram Monitor on telemetry,cardiology eval. Back pain Pt with similar complaints at [facility] MRI of lumbar spine on 11/03 without evidence of infection but showed diffusely abnormal marrow signal consistent with known chronic anemia and renal osteodystrophy. Also showed lobulated lesions throughout thoracic and lumbar spine though unlikely to be metastatic disease Transaminitis Hx of hep c, unclear if treated LFTs WNL at [facility] 2 weeks prior Check hepatitis panel Follow labs Hypoalbuminemia/moderate to severe protein calorie malnutrtion added iv albumin nNutrition consultation Glucerna supplementation Goals of care Pt with failure to thrive, poor p.o. intake, multiple recent hospitalizations for encephalopathy, hypothermia, and aspiration pneumonia Has refused NG tube and PEG tube placement -[facility] had multiple conversations with daughter about goals of care and possible hospice Daughter continues to wish pt to be Full Code at this time. ESRD on HD / Last dialyzed on 11/21/2024 Pt's resistance welder unclear consult [facility] nephrology Follow BMP HLD Continue statin once no longer NPO Mood disorder Continue home meds once no longer NPO BPH Continue tamsulosin once no loner NPO Full Code, verified with HCP over phone DVT Prophylaxis: Pneumatic compression due to thrombocytopenia Pt will require a hospitalization of at least two nights for treatment of?multiple issues including hypothermia, hypoglycemia, and acute metabolic encephalopathy in the setting of likely recurrent aspiration pneumonia requiring IV antibiotics. <Leana Krishnamurthy MD - Last Filed: 11/23/24 07:54> Quality Stroke Does the patient have a stroke diagnosis?: No <ALBERTO Mcintosh - Last Filed: 11/23/24 01:53> VTE Prior VTE?: No <ALBERTO Mcintosh - Last Filed: 11/23/24 01:53> VTE Risk Level:: Medical - moderate - high <ALBERTO Mcintosh - Last Filed: 11/23/24 01:53> VTE Device Contraindication: N/A - Device Ordered <ALBERTO Mcintosh - Last Filed: 11/23/24 01:53> VTE Drug Contraindication: Treatment Not Indicated <ALBERTO Mcintosh - Last Filed: 11/23/24 01:53>
--- NOTE | 2024-11-22 16:39 | PC.NURSE ---
Pt HR 130s-150s on family counselor while resting in bed. ALBERTO Brito made aware- EKG to bedside with order placed. Pt HR returned to 70s NSR, denies CP/SOB- EKG obtained for clarification if differ from previous EKG. MD Krishnamurthy and ALBERTO Brito at bedside for assessment. Pt remains on kailyn hugger- rectal temp 95.6, BPs 100s/50s, no increased respirations/sob. Vitals updated in worklist. Pt face noted to be swollen/puffy- MDs aware, no crackles heard on auscultation. Endorsing pain to coccyx, redness noted, no sore/breakdown.
[2024-11-22 16:41] LABS: Glucose, Whole Blood 202 mg/dL (60-115)
[2024-11-22 17:02] LABS: Thyroid Stimulating Hormone 14.89 uIU/mL (0.32-4.0)
--- NOTE | 2024-11-22 17:06 | PC.NURSE ---
Pt more alert, arousable to verbal stimuli, able to engage in conversation with this RN and manufacturing team leader, a/ox3. Remains on kailyn hugger, rectal probe in place, temp increasing- MD aware of temp. Respirations even and unlabored, O2 sat remains >92% on RA, has not needed oxygen since arriving. Repositioned in bed for comfort to right side. Call galvez within reach, all needs met at this time.
[2024-11-22] MEDS: Albumin Human 25 % 100 ML IV (17:20)
[2024-11-22] MEDS: Aspirin 300 MG SUPP.RECT PR (17:20)
[2024-11-22 17:36] LABS: Glucose, Whole Blood 183 mg/dL (60-115)
[2024-11-22 18:46] LABS: T4 Thyroxine < 3.0 ug/dL (4.5-12.0)
[2024-11-22 18:51] LABS: Troponin-I High Sensitivity 14.3 ng/L (<3.5-35.0)
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
--- NOTE | 2024-11-22 20:20 | PC.NURSE ---
per dr Mukherjee it is to be a bedside nursing swallow eval to be done. if pt passes the give po pain medication
--- NOTE | 2024-11-22 20:28 | PC.NURSE ---
pt passed the bedside nursing swallow eval.
[2024-11-22] MEDS: Melatonin 3 MG TABLET 6 MG PO (20:38)
[2024-11-22] MEDS: Tamsulosin HCL 0.4 MG CAPSULE PO (20:38)
[2024-11-22] MEDS: Mirtazapine 15 MG TABLET PO (20:45)
[2024-11-22] MEDS: Levothyroxine Sodium 100 MCG/5 ML VIAL 50 MCG IVPUSH (20:46)
--- NOTE | 2024-11-22 21:08 | PC.NURSE ---
flor zacarias removed for temp of 97.9
[2024-11-22 23:10] LABS: Glucose, Whole Blood 188 mg/dL (60-115)
[2024-11-23] VITALS (9 sets, daily range): BP systolic 128–164; BP diastolic 74–94; PULSE 79–97; RESP 14–17; TEMP 35.4–37.2; O2SAT 95–100; BMI 17.8; BMI 20.6
--- NOTE | 2024-11-23 00:24 | PC.NURSE ---
pt iv is not working, pt has no iv at this time and provider is aware that the pt needs medication.
[2024-11-23] MEDS: Albumin Human 25 % 100 ML IV (01:39)
[2024-11-23] MEDS: oxyCODONE HCl Immed Release 5 MG TABLET PO ×4 (01:48→17:17)
[2024-11-23] MEDS: Lactated Ringers 1,000 ML 100 ML IVCONT (01:55)
[2024-11-23 05:03] LABS: Hematocrit 24.4 % (42.0-52.0); Hemoglobin 7.9 g/dl (14.0-18.0); Mean Corpuscular HGB Conc 32.4 g/dl (31.0-36.0); Mean Corpuscular Hemoglobin 27.2 pg (27.0-33.0); Mean Corpuscular Volume 84.1 fL (80.0-98.0); Red Cell Distribution Width 18.6 % (11.0-16.0); White Blood Count 5.8 X10*3/uL (4.8-10.8)
[2024-11-23 05:04] LABS: Platelet Count 36 X10*3/uL (160-400)
[2024-11-23 05:25] LABS: Alanine Aminotransferase 43 U/L (0-40); Albumin Level 2.4 g/dL (3.5-5.0); Anion Gap 17 (12-20); Aspartate Amino Transferase 61 U/L (5-37); Bilirubin Total 0.5 mg/dL (0.0-1.0); Blood Urea Nitrogen 35 mg/dL (9-16); Calcium 8.3 mg/dL (8.4-10.2); Carbon Dioxide 25 mmol/L (22-29); Chloride 94 mmol/L (96-108); Creatinine Clr Calc Pharmacy 14.5; Estimated Glomerular Filt Rate 15; Glucose Random 223 mg/dL (60-115); Potassium 4.4 mmol/L (3.3-5.1); Sodium 132 mmol/L (135-145)
[2024-11-23 05:26] LABS: Alkaline Phosphatase 156 U/L (39-117)
[2024-11-23 05:35] LABS: HBS Num1 27.03 mIU/mL (0-7.99); HBc Num1 1.37 S/CO (0.00-0.79); HBsAGNum1 0.37 S/CO (0.00-0.99); Hepatitis A Antibody IgM 0.23 Index (0-0.79); Hepatitis B Surface Antigen Negative (Negative); ~HepC Num1 8.25 S/CO (0.00-0.79); ~Hepatitis A Antibody IgM Nonreactive (Nonreactive); ~Hepatitis B Surface Antibody REACTIVE (Nonreactive); ~Hepatitis C Antibody Reactive (Nonreactive)
[2024-11-23 06:15] LABS: HBc Num2 1.36 S/CO; HBc Num3 1.46 S/CO; Hepatitis B Core Antibody Reactive (Nonreactive)
[2024-11-23] MEDS: Levothyroxine Sodium 100 MCG/5 ML VIAL 50 MCG IVPUSH (06:42)
[2024-11-23 06:43] LABS: Glucose, Whole Blood 195 mg/dL (60-115)
[2024-11-23] MEDS: Lidocaine HCl 1 % 20 ML VIAL 5 ML INFILTRATI (06:45)
[2024-11-23 07:23] LABS: Glucose, Whole Blood 214 mg/dL (60-115)
--- NOTE | 2024-11-23 07:54 | P.PNIM_ITS ---
Subjective Subjective Date of Service: 11/23/24 Interval History: Hypothermia, hypoglycemia Pancytopenia Review of Systems hypoglycemia and hypothermia improelton has some edema Review of Systems: Yes all other systems are reviewed and are negative Physical Exam 2 Vital Signs: Vital Signs: Last Vital Signs Temp 95.7 F L 11/23/24 06:38 Pulse 79 11/23/24 06:38 Resp 16 11/23/24 06:38 BP 157/92 H 11/23/24 06:38 Pulse Ox 100 11/23/24 00:00 O2 Del Method Room Air 11/23/24 00:00 BMI result Body Mass Index 16.3 Appearance: Alert.? Oriented similar to yesterday. cvs: rrr, [id number] . res: clear to auscultation ,no rhonchii or wheezing abd: soft ,nt, bs present. ext pulses present , no cyanosis, has some arms edema/face edema says some neck pain and arm soarness neuro: move all ext Objective Data Active Medications Acetaminophen (Acetaminophen 325 Mg Tablet) 650 mg PO Q6H PRN PRN Reason: Fever Or Pain Acetaminophen (Acetaminophen Supp 650 Mg Supp.Rect) 650 mg [place] Q6H PRN PRN Reason: Fever Or Pain Calcium Carbonate (Calcium Carbonate 750 Mg Tab.Chew) 750 mg PO Q4H PRN PRN Reason: Heartburn Cyanocobalamin (Cyanocobalamin (Vitamin B-12) 1,000 Mcg Tablet) 1,000 mcg PO DAILY ESTELA Dextrose (Dextrose 50 % 25 Gm/50 Ml Syringe) 25 gm IVPUSH Q15M PRN; Protocol PRN Reason: per Hypoglycemia Standing Ord. Duloxetine HCl (Duloxetine Hcl 60 Mg Capsule.Dr) 60 mg PO DAILY ESTELA Epinephrine (Epinephrine 1 Mg/Ml Vial) 0.3 mg IM Q5M PRN PRN Reason: Anaphylaxis Ergocalciferol (Ergocalciferol (Vitamin D2) 1,250 Mcg Capsule) 1,250 mcg PO WE@0900 ESTELA Folic Acid (Folic Acid 1 Mg Tablet) 1 mg PO DAILY ESTELA Glucagon (Glucagon Hcl 1 Mg Vial) 1 mg IM Q15M PRN PRN Reason: low BS Glucose (Glucose Gel 15 Gm Gel..Gram.) 15 gm PO Q15M PRN; Protocol PRN Reason: per Hypoglycemia Standing Ord. Piperacillin Sod/Tazobactam (Sod 2.25 gm/ Sodium Chloride) 50 mls @ 100 mls/hr IV Q12H [facility] Last Infusion: 11/22/24 22:56 Dose: Infused Documented By: PAMELA Vancomycin HCl 500 mg/ Sodium (Chloride) 110 mls @ 110 mls/hr IV TuThSa@1800 [facility] Lactated Ringer's (Lr) 1,000 mls @ 100 mls/hr IVCONT .Q10H [facility] Last Admin: 11/23/24 01:55 Dose: 100 mls/hr Documented By: PAMELA Levothyroxine Sodium (Levothyroxine Sodium 100 Mcg/5 Ml Vial) 50 mcg IVPUSH DAILY@0600 [facility] Last Admin: 11/23/24 06:42 Dose: 50 mcg Documented By: PAMELA Magnesium Hydroxide (Milk Of Magnesia 30 Ml Oral.Susp) 30 ml PO DAILY PRN PRN Reason: Constipation Melatonin (Melatonin 3 Mg Tablet) 6 mg PO BEDTIME [facility] Last Admin: 11/22/24 20:38 Dose: 6 mg Documented By: PAMELA Mirtazapine (Mirtazapine 15 Mg Tablet) 15 mg PO BEDTIME [facility] Last Admin: 11/22/24 20:45 Dose: 15 mg Documented By: PAMELA Naloxone HCl (Naloxone Hcl 0.4 Mg/Ml Vial) 0.4 mg SUBCUT Q2M PRN PRN Reason: Anaphylaxis Naloxone HCl (Naloxone Hcl Nasal 4 Mg [place]) 4 mg NOSTRILALT Q2M PRN PRN Reason: overdose Oxycodone HCl (Oxycodone Hcl Immed Release 5 Mg Tablet) 5 mg PO Q6H PRN PRN Reason: Pain (Scale Score 4-6) Last Admin: 11/23/24 01:48 Dose: 5 mg Documented By: PAMELA Pharmacy Consult (Consult Rx Vancomycin Dosing) 1 each MISCELLANE DAILY PRN PRN Reason: Consult order Sodium Chloride (0.9 % Sodium Chloride Flush 3 Ml Syringe) 3 ml IVFLUSH QSHIFT [facility] Last Admin: 11/23/24 01:50 Dose: Not Given Documented By: PAMELA Non-Admin Reason: IV Running Tamsulosin HCl (Tamsulosin Hcl 0.4 Mg Capsule) 0.4 mg PO BEDTIME [facility] Last Admin: 11/22/24 20:38 Dose: 0.4 mg Documented By: HO.MCTA Thiamine HCl (Thiamine Hcl 100 Mg Tablet) 100 mg PO DAILY [facility] Labs 11/23/24 04:33 11/23/24 04:33 Labs: Laboratory Results - last 24 hr 11/22/24 11/22/24 11/22/24 09:34 09:36 09:55 MCV MCH MCHC RDW Plt Count MPV Immature Gran % (Auto) Neut % (Auto) Lymph % (Auto) Titus % (Auto) Eos % (Auto) Baso % (Auto) Lymph # (Auto) Titus # (Auto) Eos # (Auto) Baso # (Auto) Abs Immat Gran (auto) Absolute Neuts (auto) Absolute Nucleated RBC Nucleated RBC % (auto) VBG pH VBG pCO2 VBG pO2 VBG HCO3 VBG O2 Saturation VBG Base Excess Anion Gap Estim Creat Clear Calc Estimated GFR POC Glucose 36 L* 49 L* 43 L* Random Glucose Lactic Acid Lactic Acid F/U @ 2Hr Calcium Phosphorus Magnesium Total Bilirubin Direct Bilirubin AST ALT Alkaline Phosphatase Ammonia B-Natriuretic Peptide Total Protein Albumin Lipase TSH Thyroxine (T4) Hepatitis A IgM Ab Hep Bs Antigen Hep Bs Antibody Hep B Core Total Ab Hep B Core IgM Ab Hepatitis C Ab (EIA) Influenza Type A (PCR) Influenza Type B (PCR) RSV RNA Qual (PCR) SARS-CoV-2 RNA (RT-PCR) 11/22/24 11/22/24 11/22/24 10:04 10:05 10:10 MCV 85.1 MCH 26.8 L MCHC 31.4 RDW 18.8 H Plt Count 60 L D MPV Not Reportable Immature Gran % (Auto) 0.2 Neut % (Auto) 53.7 Lymph % (Auto) 38.2 Titus % (Auto) 5.9 Eos % (Auto) 1.0 Baso % (Auto) 1.0 Lymph # (Auto) 1.6 Titus # (Auto) 0.3 Eos # (Auto) 0.0 Baso # (Auto) 0.0 Abs Immat Gran (auto) 0.01 Absolute Neuts (auto) 2.3 Absolute Nucleated RBC 0.040 H Nucleated RBC % (auto) 1.0 H VBG pH 7.53 H VBG pCO2 40 VBG pO2 45 VBG HCO3 34 H VBG O2 Saturation 75.0 VBG Base Excess 11.0 Anion Gap 15 Estim Creat Clear Calc 15.7 Estimated GFR 16 POC Glucose Random Glucose 74 Lactic Acid 2.2 H* Lactic Acid F/U @ 2Hr Calcium 8.2 L D Phosphorus 4.0 Magnesium 2.2 Total Bilirubin 0.5 Direct Bilirubin 0.2 AST 85 H ALT 62 H Alkaline Phosphatase 198 H Ammonia 31 B-Natriuretic Peptide 3651 H Total Protein 5.2 L Albumin 2.2 L Lipase 14 TSH 14.89 H Thyroxine (T4) < 3.0 L Hepatitis A IgM Ab Hep Bs Antigen Hep Bs Antibody Hep B Core Total Ab Hep B Core IgM Ab Hepatitis C Ab (EIA) Influenza Type A (PCR) Influenza Type B (PCR) RSV RNA Qual (PCR) SARS-CoV-2 RNA (RT-PCR) 11/22/24 11/22/24 11/22/24 10:13 10:26 11:56 MCV MCH MCHC RDW Plt Count MPV Immature Gran % (Auto) Neut % (Auto) Lymph % (Auto) Titus % (Auto) Eos % (Auto) Baso % (Auto) Lymph # (Auto) Titus # (Auto) Eos # (Auto) Baso # (Auto) Abs Immat Gran (auto) Absolute Neuts (auto) Absolute Nucleated RBC Nucleated RBC % (auto) VBG pH VBG pCO2 VBG pO2 VBG HCO3 VBG O2 Saturation VBG Base Excess Anion Gap Estim Creat Clear Calc Estimated GFR POC Glucose 47 L* 212 H Random Glucose Lactic Acid Lactic Acid F/U @ 2Hr Calcium Phosphorus Magnesium Total Bilirubin Direct Bilirubin AST ALT Alkaline Phosphatase Ammonia B-Natriuretic Peptide Total Protein Albumin Lipase TSH Thyroxine (T4) Hepatitis A IgM Ab Hep Bs Antigen Hep Bs Antibody Hep B Core Total Ab Hep B Core IgM Ab Hepatitis C Ab (EIA) Influenza Type A (PCR) NEGATIVE Influenza Type B (PCR) NEGATIVE RSV RNA Qual (PCR) NEGATIVE SARS-CoV-2 RNA (RT-PCR) NEGATIVE 11/22/24 11/22/24 11/22/24 12:59 13:25 16:36 MCV MCH MCHC RDW Plt Count MPV Immature Gran % (Auto) Neut % (Auto) Lymph % (Auto) Titus % (Auto) Eos % (Auto) Baso % (Auto) Lymph # (Auto) Titus # (Auto) Eos # (Auto) Baso # (Auto) Abs Immat Gran (auto) Absolute Neuts (auto) Absolute Nucleated RBC Nucleated RBC % (auto) VBG pH VBG pCO2 VBG pO2 VBG HCO3 VBG O2 Saturation VBG Base Excess Anion Gap Estim Creat Clear Calc Estimated GFR POC Glucose 196 H 202 H Random Glucose Lactic Acid Lactic Acid F/U @ 2Hr 1.8 Calcium Phosphorus Magnesium Total Bilirubin Direct Bilirubin AST ALT Alkaline Phosphatase Ammonia B-Natriuretic Peptide Total Protein Albumin Lipase TSH Thyroxine (T4) Hepatitis A IgM Ab Hep Bs Antigen Hep Bs Antibody Hep B Core Total Ab Hep B Core IgM Ab Hepatitis C Ab (EIA) Influenza Type A (PCR) Influenza Type B (PCR) RSV RNA Qual (PCR) SARS-CoV-2 RNA (RT-PCR) 11/22/24 11/22/24 11/23/24 17:31 23:06 04:33 MCV 84.1 MCH 27.2 MCHC 32.4 RDW 18.6 H Plt Count 36 L D MPV Not Reportable Immature Gran % (Auto) Neut % (Auto) Lymph % (Auto) Titus % (Auto) Eos % (Auto) Baso % (Auto) Lymph # (Auto) Titus # (Auto) Eos # (Auto) Baso # (Auto) Abs Immat Gran (auto) Absolute Neuts (auto) Absolute Nucleated RBC 0.000 Nucleated RBC % (auto) 0.0 VBG pH VBG pCO2 VBG pO2 VBG HCO3 VBG O2 Saturation VBG Base Excess Anion Gap 17 Estim Creat Clear Calc 14.5 Estimated GFR 15 POC Glucose 183 H 188 H Random Glucose 223 H Lactic Acid Lactic Acid F/U @ 2Hr Calcium 8.3 L Phosphorus Magnesium Total Bilirubin 0.5 Direct Bilirubin AST 61 H ALT 43 H Alkaline Phosphatase 156 H Ammonia B-Natriuretic Peptide Total Protein 5.0 L Albumin 2.4 L Lipase TSH Thyroxine (T4) Hepatitis A IgM Ab Nonreactive Hep Bs Antigen Negative Hep Bs Antibody REACTIVE Hep B Core Total Ab Reactive Hep B Core IgM Ab Cancelled Hepatitis C Ab (EIA) Reactive H Influenza Type A (PCR) Influenza Type B (PCR) RSV RNA Qual (PCR) SARS-CoV-2 RNA (RT-PCR) 11/23/24 11/23/24 06:40 07:08 MCV MCH MCHC RDW Plt Count MPV Immature Gran % (Auto) Neut % (Auto) Lymph % (Auto) Titus % (Auto) Eos % (Auto) Baso % (Auto) Lymph # (Auto) Titus # (Auto) Eos # (Auto) Baso # (Auto) Abs Immat Gran (auto) Absolute Neuts (auto) Absolute Nucleated RBC Nucleated RBC % (auto) VBG pH VBG pCO2 VBG pO2 VBG HCO3 VBG O2 Saturation VBG Base Excess Anion Gap Estim Creat Clear Calc Estimated GFR POC Glucose 195 H 214 H Random Glucose Lactic Acid Lactic Acid F/U @ 2Hr Calcium Phosphorus Magnesium Total Bilirubin Direct Bilirubin AST ALT Alkaline Phosphatase Ammonia B-Natriuretic Peptide Total Protein Albumin Lipase TSH Thyroxine (T4) Hepatitis A IgM Ab Hep Bs Antigen Hep Bs Antibody Hep B Core Total Ab Hep B Core IgM Ab Hepatitis C Ab (EIA) Influenza Type A (PCR) Influenza Type B (PCR) RSV RNA Qual (PCR) SARS-CoV-2 RNA (RT-PCR) Assessment and Plan (1) Thrombocytopenia: Status: Acute (2) Abnormal EKG: Status: Acute (3) Aspiration pneumonia: Status: Acute (4) Hypothermia: Status: Acute (5) Acute metabolic encephalopathy due to hypoglycemia: Status: Acute Plan 64-year-old male with a PMH significant for?ESRD on HD T//Sat, type I brittle diabetes, NSTEMI 11/2022, HLD, COPD, BPH, CHF, seizure disorder, anemia of chronic disease, chronic thrombocytopenia, hepatitis C, unspecified dementia, mood disorder, among others who presents to the ED from [facility] for evaluation of increased confusion and lethargy. Pt is admitted to the hospital for hypoglycemia, hypothermia, and acute metabolic encephalopathy in the setting of likely aspiration pneumonia. Acute metabolic encephalopathy in the setting of likely aspiration pneumonia Pt altered, lethargic, CT of chest with suspicion of pneumonia Likely in the setting of continued aspiration Treated for likely aspiration x2 last month at [facility], currently on Augmentin x4 weeks, set to stop of 12/04 no sepsis currently, hypothermia improved. blood cultures@24 hrs continue vanc and Zosyn, started 11/22/2024 Monitor mentation improving Hypoglycemia-? type I brittle diabetes received dextrose /fluids : seems improved started diet fs with coverage. Hypothyroidism TSH 14.89, elevated from 6.51 at [facility] on 11/04/2024 Free T4 undetectable d/w endocrinology-will check cortisol levels ( if boderline or low than 15 -may consider acth stimulation) add po levothyroxine Hypothermia-Likely multifactorial: in the setting of hypoglycemia, hypothyroidsim improving Has had multiple presentations with hypothermia, including here in 11/2022 and two weeks ago at [facility] on 10/24/2024 Continue Alie Rojas as needed. pancytopenia ?unclear (chronic): possible multifactorial (nutritional ,esrd, pneumonia ,dilution sec to fluid) ch low platelets in 50-100 range perpherial smear reviewed as well as coagulation studies ,fibrinogen and seen byhematology/oncology:Worsening thrombocytopenia is likely related to pneumonia, poor nutrition, antibiotic use and underlying liver disease/hepatitis-C.Acute worsening of anemia is also secondary to all of the above including end-stage renal disease. He has been on Procrit/LIN therapy with dialysis. He should be continued on this. moniter cbc , type and screen ,anemia workup EKG changes EKG showing significant new t-wave depressions in anteriolateral leads Pt not complaining of chest pain, trop negative Echocardiogram 2022-LVEF of 45-50%. Restrictive filling. Severe left atrial dilatation. Myocardial perfusion imaging study from 2022 showed normal perfusion. patient has significant thrombocytopenia plan: cardiology eval noted-Overall, hyperglycemia, encephalopathy, severe thrombocytopenia, abnormal EKG. EKG findings could reflect LAD territory ischemia. Likely second-degree to the above. It could also be stress-induced cardiomyopathy type finding. In the current situation, he is really not suitable for invasive procedures like cardiac catheterization. Mainly treat the primary issues. Because of severe thrombocytopenia, there is high bleeding risk with IV heparin drip and hence do not use for now. Not suitable for antiplatelet drugs either. due to flactuating hypo/hyperglycemia -bb will be challenging Echocardiogram Monitor on telemetry Back pain: Pt with similar complaints at [facility] MRI of lumbar spine on 11/03 without evidence of infection but showed diffusely abnormal marrow signal consistent with known chronic anemia and renal osteodystrophy. Also showed lobulated lesions throughout thoracic and lumbar spine though unlikely to be metastatic disease haem/onc eval Transaminitis Hx of hep c, unclear if treated LFTs WNL at [facility] 2 weeks prior Check hepatitis panel-hx of hepaitis C -has eia positive ,will order viral load for morning. Follow labs Hypoalbuminemia/moderate to severe protein calorie malnutrtion given iv albumin Nutrition consultation Glucerna supplementation Goals of care Pt with failure to thrive, poor p.o. intake, multiple recent hospitalizations for encephalopathy, hypothermia, and aspiration pneumonia Has refused NG tube and PEG tube placement -[facility] had multiple conversations with daughter about goals of care and possible hospice. Daughter continues to wish pt to be Full Code at this time. 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 Follow BMP HLD Continue statin Mood disorder Continue home meds BPH Continue tamsulosin Full Code. DVT Prophylaxis: Pneumatic compression due to thrombocytopenia ongoing hospitalization for treatment of?multiple issues including hypothermia, hypoglycemia, and acute metabolic encephalopathy , pneumonia ,anemia -in the setting of likely recurrent aspiration pneumonia requiring IV antibiotics, pancytopenia workup Quality Stroke Does the patient have a stroke diagnosis?: No VTE Prior VTE?: No VTE Risk Level:: Medical - moderate - high VTE Device Contraindication: N/A - Device Ordered VTE Drug Contraindication: Treatment Not Indicated
[2024-11-23 08:19] LABS: Band Neutrophils Percent 3 % (3-5); Basophils Abs Manual 0.1 X10*3/uL (0.0-0.2); Basophils Percent Manual 1 % (0-2); Eosinophils Absolute Manual 0.1 X10*3/uL (0.0-0.4); Eosinophils Percent Manual 1 % (0-4); Lymphocytes Absolute Manual 0.8 X10*3/uL (1.2-4.9); Lymphocytes Percent Manual 13 % (20-40); Monocytes Absolute Manual 0.1 X10*3/uL (0.1-1.2); Monocytes Percent Manual 2 % (2-11); Neutrophils Absolute Manual 4.8 X10*3/uL (2.0-8.3); Neutrophils Percent Manual 80 % (45-73)
[2024-11-23 08:21] LABS: Ovalocytes 1+ (5-14) /OIF; Platelet Estimate DECREASED (NORMAL); Platelet Morphology Comment NORMAL; RBC Morphology NOTED
[2024-11-23 08:22] LABS: Acanthocytes 2+ (3-5) /OIF; Burr Cells 2+ (3-5) /OIF; Hypochromasia 1+ (5-14) /OIF; Smudge Cells PRESENT
[2024-11-23 08:37] LABS: Fibrinogen 183 MG/DL (259-690); INTERNATIONAL NORM RATIO 1.2 (0.9-1.1); Prothrombin Time 13.5 SEC (10.9-12.4)
[2024-11-23 09:29] LABS: Folate 12.2 ng/mL (> or = 4.0); Vitamin B12 > 2000 pg/mL (200-900)
[2024-11-23 09:30] LABS: Iron 49 mcg/dL (45-160); Percent Iron Saturation 66 % (15-50); Total Iron Binding Capacity 74 mcg/dL (228-428); Unsaturated Iron Binding < 25 ug/dL
--- NOTE | 2024-11-23 09:41 | P.CONCA_ITS ---
History of Present Illness History of Present Illness Date of Service: 11/23/24 Chief complaint: Hypothermia, SIRS Narrative: This is a cardiology consultation regarding an abnormal EKG. EKG had shown deep T inversions across the anterior leads. Thought to be new finding. Patient has a history of ESRD on hemodialysis. She has type one diabetes, COPD, seizure disorder and many other comorbidities. Nonspecific dementia. Discussed with patient, RN as well as reviewed the chart. He has been brought from [facility] for evaluation of increasing confusion/lethargy. Patient apparently became limp and unresponsive when transfer to his wheelchair. Normally, alert and oriented x3 and uses a wheelchair at baseline. In the ER, thought to be responsive only to painful stimuli. He was hypoglycemic in the 30s and 40s. He was seen and evaluated when he was still on a [employer]. He was complaining of pain all over. Per initial documentation, denied any chest pain. When I keep asking him the same questions, he states that he has had chest pains at different times but again very vague. However, nothing clear-cut suggestive of exertional angina. Overall, he has been admitted with a diagnosis of acute metabolic encephalopathy, aspiration pneumonia, hyperglycemia, hypothyroidism. In this setting, has an abnormal EKG showing T inversions. Review of Systems 2 Review of Systems: Yes all other systems are reviewed and are negative Constitutional: Constitutional: Reports as per HPI and Reports no additional constitutional complaints Eyes: Eyes: Reports as per HPI and Denies no additional eye complaints ENT: Denies system reviewed and no additional complaints, except as documented and Reports as per HPI Cardiovascular: Cardiovascular: Reports as per HPI, Reports no additional cardiovascular complaints, Denies acrocyanosis, Denies cool extremities, Denies chest pain, Denies leg edema, Denies lightheadedness, Denies palpitations and Denies dyspnea Respiratory: Respiratory: Reports as per HPI, Denies no additional respiratory complaints and Denies dyspnea Gastrointestinal: Gastrointestinal: Reports as per HPI and Denies no additional gastrointestinal complaints Genitourinary: Genitourinary: Reports no additional male genitourinary complaints and Reports as per HPI Musculoskeletal: Musculoskeletal: Reports no additional musculoskeletal complaints and Reports as per HPI Integumentary/Breasts: Skin/Breast: Reports system reviewed and no additional complaints, except as docu Neurologic: Reports system reviewed and no additional complaints, except as documented and Reports as per HPI Psychiatric: Psychiatric: Reports no additional psychiatric complaints and Reports as per HPI Endocrine: Endocrine: Reports no additional endocrine complaints, Reports as per HPI and Denies palpitations Hematologic/Lymphatic: Hematologic/Lymphatic: Reports no additional hematologic/lymphatic complaints and Reports as per HPI Allergic/Immunologic: Allergic/Immunologic: Reports no additional allergic/immunologic complaints and Reports as per HPI [facility] Past Medical History Medical History Hypernatremia Vitamin D deficiency Hyperkalemia Hyperparathyroidism Dysphagia Hyperlipemia Hypertension Major depressive disorder Urine retention Systolic CHF Dementia Benign prostate hyperplasia Nicotine dependence Constipation Osteoarthritis Anemia Peripheral vascular disease Atrial fibrillation Gastrointestinal hemorrhage End stage renal disease on dialysis Hepatitis C COPD (chronic obstructive pulmonary disease) Cellulitis Streptococcal sepsis, unspecified Bacteremia Septic shock Sepsis Diabetes mellitus type 1 Hypertensive cardiopathy ESRD (end stage renal disease) on dialysis Family History Pertinent family history: No pertinent family history Social History Social History Household Members: Other Household Members Other:: [facility] Housing: Halfway Unable to assess alcohol history related to: Unable to respond Alcohol intake: never Patient Tobacco Use Status: Current everyday Tobacco user Tobacco use type: Cigarette Second Hand Smoke Exposure: No Advance Directives Date on File: 06/22/22 service: No Current occupational status: disabled Meds Allergies Allergy/AdvReac Type Severity Reaction Status Date / Time No Known Allergies Allergy Verified 11/22/24 10:28 Active Medications: Current Medications Acetaminophen (Acetaminophen 325 Mg Tablet) 650 mg PO Q6H PRN PRN Reason: Fever Or Pain Acetaminophen (Acetaminophen Supp 650 Mg Supp.Rect) 650 mg VT Q6H PRN PRN Reason: Fever Or Pain Calcium Carbonate (Calcium Carbonate 750 Mg Tab.Chew) 750 mg PO Q4H PRN PRN Reason: Heartburn Cyanocobalamin (Cyanocobalamin (Vitamin B-12) 1,000 Mcg Tablet) 1,000 mcg PO DAILY ESTELA Dextrose (Dextrose 50 % 25 Gm/50 Ml Syringe) 25 gm IVPUSH Q15M PRN; Protocol PRN Reason: per Hypoglycemia Standing Ord. Duloxetine HCl (Duloxetine Hcl 60 Mg Capsule.Dr) 60 mg PO DAILY ESTELA Epinephrine (Epinephrine 1 Mg/Ml Vial) 0.3 mg IM Q5M PRN PRN Reason: Anaphylaxis Ergocalciferol (Ergocalciferol (Vitamin D2) 1,250 Mcg Capsule) 1,250 mcg PO WE@0900 [facility] Folic Acid (Folic Acid 1 Mg Tablet) 1 mg PO DAILY [facility] Glucagon (Glucagon Hcl 1 Mg Vial) 1 mg IM Q15M PRN PRN Reason: low BS Glucose (Glucose Gel 15 Gm Gel..Gram.) 15 gm PO Q15M PRN; Protocol PRN Reason: per Hypoglycemia Standing Ord. Piperacillin Sod/Tazobactam (Sod 2.25 gm/ Sodium Chloride) 50 mls @ 100 mls/hr IV Q12H [facility] Last Infusion: 11/22/24 22:56 Dose: Infused Vancomycin HCl 500 mg/ Sodium (Chloride) 110 mls @ 110 mls/hr IV TuThSa@1800 [facility] Lactated Ringer's (Lr) 1,000 mls @ 100 mls/hr IVCONT .Q10H [facility] Last Admin: 11/23/24 01:55 Dose: 100 mls/hr Levothyroxine Sodium (Levothyroxine Sodium 100 Mcg/5 Ml Vial) 50 mcg IVPUSH DAILY@0600 [facility] Last Admin: 11/23/24 06:42 Dose: 50 mcg Magnesium Hydroxide (Milk Of Magnesia 30 Ml Oral.Susp) 30 ml PO DAILY PRN PRN Reason: Constipation Melatonin (Melatonin 3 Mg Tablet) 6 mg PO BEDTIME [facility] Last Admin: 11/22/24 20:38 Dose: 6 mg Mirtazapine (Mirtazapine 15 Mg Tablet) 15 mg PO BEDTIME [facility] Last Admin: 11/22/24 20:45 Dose: 15 mg Naloxone HCl (Naloxone Hcl 0.4 Mg/Ml Vial) 0.4 mg SUBCUT Q2M PRN PRN Reason: Anaphylaxis Naloxone HCl (Naloxone Hcl Nasal 4 Mg [place]) 4 mg NOSTRILALT Q2M PRN PRN Reason: overdose Oxycodone HCl (Oxycodone Hcl Immed Release 5 Mg Tablet) 5 mg PO Q6H PRN PRN Reason: Pain (Scale Score 4-6) Last Admin: 11/23/24 01:48 Dose: 5 mg Pharmacy Consult (Consult Rx Vancomycin Dosing) 1 each MISCELLANE DAILY PRN PRN Reason: Consult order Sodium Chloride (0.9 % Sodium Chloride Flush 3 Ml Syringe) 3 ml IVFLUSH QSHIFT [facility] Last Admin: 11/23/24 08:35 Dose: Not Given Tamsulosin HCl (Tamsulosin Hcl 0.4 Mg Capsule) 0.4 mg PO BEDTIME ESTELA Last Admin: 11/22/24 20:38 Dose: 0.4 mg Thiamine HCl (Thiamine Hcl 100 Mg Tablet) 100 mg PO DAILY [facility] Home Medications ?Medication ?Instructions ?Recorded ?Confirmed ?Last Taken ?Type duloxetine 60 mg capsule,delayed 1 cap PO DAILY 06/17/22 11/22/24 11/21/24 History release insulin lispro 100 unit/mL See Protocol subcut TIDAC 06/17/22 11/22/24 11/21/24 History subcutaneous solution (Humalog U-100 Insulin) mirtazapine 15 mg tablet 1 tab PO BEDTIME 06/17/22 11/22/24 11/21/24 History tamsulosin 0.4 mg capsule 1 cap PO BEDTIME 06/17/22 11/22/24 11/21/24 History acetaminophen 325 mg tablet 650 mg PO Q6H PRN Fever Or Pain 11/20/22 11/22/24 07/01/24 History acetaminophen 650 mg rectal 650 mg VT Q6H PRN Fever Or Pain 11/20/22 11/22/24 Unknown History suppository insulin glargine 100 unit/mL (3 1 unit subcut BEDTIME 11/20/22 11/22/24 11/21/24 History mL) subcutaneous pen (Lantus Solostar U-100 Insulin) melatonin 5 mg tablet 5 mg PO BEDTIME Sleep 11/20/22 11/22/24 11/21/24 History oxycodone 5 mg tablet 5 mg PO Q6H PRN Pain (Scale Score 11/20/22 11/22/24 11/20/24 History 4-6) amoxicillin 500 mg-potassium 1 tab PO BEDTIME 11/22/24 11/22/24 11/21/24 History clavulanate 125 mg tablet (Augmentin) atorvastatin 40 mg tablet 40 mg PO BEDTIME 11/22/24 11/22/24 11/21/24 History cholecalciferol (vitamin D3) 1,250 1,250 mcg PO QMONTH 11/22/24 11/22/24 11/01/24 History mcg (50,000 unit) capsule cyanocobalamin (vitamin B-12) 1,000 mcg PO DAILY 11/22/24 11/22/24 11/21/24 History 1,000 mcg tablet epinephrine 0.3 mg/0.3 mL 0.3 mg IM Q5M PRN Anaphylaxis 11/22/24 11/22/24 Unknown History injection, auto-injector (EpiPen) ergocalciferol (vitamin D2) 1,250 1,250 mcg PO WE@0900 11/22/24 11/22/24 11/18/24 History mcg (50,000 unit) capsule folic acid 1 mg tablet 1 mg PO DAILY 11/22/24 11/22/24 11/21/24 History glucagon 1 mg/0.2 mL subcutaneous 1 mg subcut Q15M PRN low BS 11/22/24 11/22/24 Unknown History solution (Gvoke) naloxone 0.4 mg/mL injection 0.4 mg subcut Q2M PRN Anaphylaxis 11/22/24 11/22/24 Unknown History solution naloxone 4 mg/actuation nasal spray 4 mg intranasal Q2M PRN overdose 11/22/24 11/22/24 Unknown History thiamine HCl (vitamin B1) 100 mg 100 mg PO DAILY 11/22/24 11/22/24 11/21/24 History tablet Physical Exam 2 Vital Signs: Vital Signs: Last Vital Signs Temp 95.7 F L 11/23/24 08:00 Pulse 84 11/23/24 08:00 Resp 17 11/23/24 08:00 BP 164/94 H 11/23/24 08:00 Pulse Ox 95 11/23/24 08:00 O2 Del Method Nasal Cannula 11/23/24 08:00 O2 Flow Rate 2 11/23/24 08:00 BMI result Body Mass Index 17.8 Const: General: comfortable and no acute distress O rientation/consciousness: patient oriented x3 HEENT: Other: Unremarkable Head: Yes normal to inspection Neck: Neck: Yes normal visual inspection Chest: Chest palpation & inspection: normal inspection of the chest Resp: Auscultation: clear to auscultation bilaterally Cardio: Palpation: normal PMI Heart sounds: S1 normal heart sound present, S2 normal heart sound present, no gallops, no murmurs and no rubs GI: Palpation (GI): Soft to palpation Back/Spine/Pelvis: Other: unremarkable Skin: General skin exam: no rashes or lesions noted Neuro: General: patient oriented x3 Extrem: General: Yes normal to inspection Psych: Mental Status: mental status grossly normal Objective Labs and Meds 11/23/24 04:33 11/23/24 04:33 Lab results: Laboratory Results - last 24 hr 11/22/24 11/22/24 11/22/24 09:34 09:36 09:55 WBC RBC Hgb Hct MCV MCH MCHC RDW Plt Count MPV Immature Gran % (Auto) Neut % (Auto) Lymph % (Auto) [place] % (Auto) Eos % (Auto) Baso % (Auto) Lymph # (Auto) [place] # (Auto) Eos # (Auto) Baso # (Auto) Abs Immat Gran (auto) Absolute Neuts (auto) Absolute Nucleated RBC Nucleated RBC % (auto) Neutrophils % (Manual) Band Neutrophils % Lymphocytes % (Manual) Monocytes % (Manual) Eosinophils % (Manual) Basophils % (Manual) Abs Neuts (Manual) Lymphocytes # (Manual) Monocytes # (Manual) Eosinophils # (Manual) Basophils # (Manual) Smudge Cells Platelet Estimate Plt Morphology Comment RBC Morphology Hypochromasia Ovalocytes Rupert Cells Acanthocytes (Spur) PT INR APTT Fibrinogen VBG pH VBG pCO2 VBG pO2 VBG HCO3 VBG O2 Saturation VBG Base Excess Sodium Potassium Chloride Carbon Dioxide Anion Gap BUN Creatinine Estim Creat Clear Calc Estimated GFR POC Glucose 36 L* 49 L* 43 L* Random Glucose Lactic Acid Lactic Acid F/U @ 2Hr Calcium Phosphorus Magnesium Iron TIBC % Saturation Unsat Iron Binding Total Bilirubin Direct Bilirubin AST ALT Alkaline Phosphatase Ammonia Troponin I High Sens B-Natriuretic Peptide Total Protein Albumin Lipase Vitamin B12 Folate TSH Thyroxine (T4) Hepatitis A IgM Ab Hep Bs Antigen Hep Bs Antibody Hep B Core Total Ab Hep B Core IgM Ab Hepatitis C Ab (EIA) Influenza Type A (PCR) Influenza Type B (PCR) RSV RNA Qual (PCR) SARS-CoV-2 RNA (RT-PCR) 11/22/24 11/22/24 11/22/24 10:04 10:05 10:10 WBC 4.2 L RBC 3.70 L Hgb 9.9 L D Hct 31.5 L D MCV 85.1 MCH 26.8 L MCHC 31.4 RDW 18.8 H Plt Count 60 L D MPV Not Reportable Immature Gran % (Auto) 0.2 Neut % (Auto) 53.7 Lymph % (Auto) 38.2 [place] % (Auto) 5.9 Eos % (Auto) 1.0 Baso % (Auto) 1.0 Lymph # (Auto) 1.6 [place] # (Auto) 0.3 Eos # (Auto) 0.0 Baso # (Auto) 0.0 Abs Immat Gran (auto) 0.01 Absolute Neuts (auto) 2.3 Absolute Nucleated RBC 0.040 H Nucleated RBC % (auto) 1.0 H Neutrophils % (Manual) Band Neutrophils % Lymphocytes % (Manual) Monocytes % (Manual) Eosinophils % (Manual) Basophils % (Manual) Abs Neuts (Manual) Lymphocytes # (Manual) Monocytes # (Manual) Eosinophils # (Manual) Basophils # (Manual) Smudge Cells Platelet Estimate Plt Morphology Comment RBC Morphology Hypochromasia Ovalocytes Rupert Cells Acanthocytes (Spur) PT INR APTT Fibrinogen VBG pH 7.53 H VBG pCO2 40 VBG pO2 45 VBG HCO3 34 H VBG O2 Saturation 75.0 VBG Base Excess 11.0 Sodium 134 L Potassium 4.5 Chloride 96 Carbon Dioxide 28 Anion Gap 15 BUN 30 H Creatinine 3.75 H Estim Creat Clear Calc 15.7 Estimated GFR 16 POC Glucose Random Glucose 74 Lactic Acid 2.2 H* Lactic Acid F/U @ 2Hr Calcium 8.2 L D Phosphorus 4.0 Magnesium 2.2 Iron TIBC % Saturation Unsat Iron Binding Total Bilirubin 0.5 Direct Bilirubin 0.2 AST 85 H ALT 62 H Alkaline Phosphatase 198 H Ammonia 31 Troponin I High Sens 19.0 B-Natriuretic Peptide 3651 H Total Protein 5.2 L Albumin 2.2 L Lipase 14 Vitamin B12 Folate TSH 14.89 H Thyroxine (T4) < 3.0 L Hepatitis A IgM Ab Hep Bs Antigen Hep Bs Antibody Hep B Core Total Ab Hep B Core IgM Ab Hepatitis C Ab (EIA) Influenza Type A (PCR) Influenza Type B (PCR) RSV RNA Qual (PCR) SARS-CoV-2 RNA (RT-PCR) 11/22/24 11/22/24 11/22/24 10:13 10:26 11:56 WBC RBC Hgb Hct MCV MCH MCHC RDW Plt Count MPV Immature Gran % (Auto) Neut % (Auto) Lymph % (Auto) [place] % (Auto) Eos % (Auto) Baso % (Auto) Lymph # (Auto) [place] # (Auto) Eos # (Auto) Baso # (Auto) Abs Immat Gran (auto) Absolute Neuts (auto) Absolute Nucleated RBC Nucleated RBC % (auto) Neutrophils % (Manual) Band Neutrophils % Lymphocytes % (Manual) Monocytes % (Manual) Eosinophils % (Manual) Basophils % (Manual) Abs Neuts (Manual) Lymphocytes # (Manual) Monocytes # (Manual) Eosinophils # (Manual) Basophils # (Manual) Smudge Cells Platelet Estimate Plt Morphology Comment RBC Morphology Hypochromasia Ovalocytes Rupert Cells Acanthocytes (Spur) PT INR APTT Fibrinogen VBG pH VBG pCO2 VBG pO2 VBG HCO3 VBG O2 Saturation VBG Base Excess Sodium Potassium Chloride Carbon Dioxide Anion Gap BUN Creatinine Estim Creat Clear Calc Estimated GFR POC Glucose 47 L* 212 H Random Glucose Lactic Acid Lactic Acid F/U @ 2Hr Calcium Phosphorus Magnesium Iron TIBC % Saturation Unsat Iron Binding Total Bilirubin Direct Bilirubin AST ALT Alkaline Phosphatase Ammonia Troponin I High Sens B-Natriuretic Peptide Total Protein Albumin Lipase Vitamin B12 Folate TSH Thyroxine (T4) Hepatitis A IgM Ab Hep Bs Antigen Hep Bs Antibody Hep B Core Total Ab Hep B Core IgM Ab Hepatitis C Ab (EIA) Influenza Type A (PCR) NEGATIVE Influenza Type B (PCR) NEGATIVE RSV RNA Qual (PCR) NEGATIVE SARS-CoV-2 RNA (RT-PCR) NEGATIVE 11/22/24 11/22/24 11/22/24 12:59 13:25 16:36 WBC RBC Hgb Hct MCV MCH MCHC RDW Plt Count MPV Immature Gran % (Auto) Neut % (Auto) Lymph % (Auto) [place] % (Auto) Eos % (Auto) Baso % (Auto) Lymph # (Auto) [place] # (Auto) Eos # (Auto) Baso # (Auto) Abs Immat Gran (auto) Absolute Neuts (auto) Absolute Nucleated RBC Nucleated RBC % (auto) Neutrophils % (Manual) Band Neutrophils % Lymphocytes % (Manual) Monocytes % (Manual) Eosinophils % (Manual) Basophils % (Manual) Abs Neuts (Manual) Lymphocytes # (Manual) Monocytes # (Manual) Eosinophils # (Manual) Basophils # (Manual) Smudge Cells Platelet Estimate Plt Morphology Comment RBC Morphology Hypochromasia Ovalocytes [place] Cells Acanthocytes (Spur) PT INR APTT Fibrinogen VBG pH VBG pCO2 VBG pO2 VBG HCO3 VBG O2 Saturation VBG Base Excess Sodium Potassium Chloride Carbon Dioxide Anion Gap BUN Creatinine Estim Creat Clear Calc Estimated GFR POC Glucose 196 H 202 H Random Glucose Lactic Acid Lactic Acid F/U @ 2Hr 1.8 Calcium Phosphorus Magnesium Iron TIBC % Saturation Unsat Iron Binding Total Bilirubin Direct Bilirubin AST ALT Alkaline Phosphatase Ammonia Troponin I High Sens B-Natriuretic Peptide Total Protein Albumin Lipase Vitamin B12 Folate TSH Thyroxine (T4) Hepatitis A IgM Ab Hep Bs Antigen Hep Bs Antibody Hep B Core Total Ab Hep B Core IgM Ab Hepatitis C Ab (EIA) Influenza Type A (PCR) Influenza Type B (PCR) RSV RNA Qual (PCR) SARS-CoV-2 RNA (RT-PCR) 11/22/24 11/22/24 11/22/24 17:31 18:11 23:06 WBC RBC Hgb Hct MCV MCH MCHC RDW Plt Count MPV Immature Gran % (Auto) Neut % (Auto) Lymph % (Auto) [place] % (Auto) Eos % (Auto) Baso % (Auto) Lymph # (Auto) [place] # (Auto) Eos # (Auto) Baso # (Auto) Abs Immat Gran (auto) Absolute Neuts (auto) Absolute Nucleated RBC Nucleated RBC % (auto) Neutrophils % (Manual) Band Neutrophils % Lymphocytes % (Manual) Monocytes % (Manual) Eosinophils % (Manual) Basophils % (Manual) Abs Neuts (Manual) Lymphocytes # (Manual) Monocytes # (Manual) Eosinophils # (Manual) Basophils # (Manual) Smudge Cells Platelet Estimate Plt Morphology Comment RBC Morphology Hypochromasia Ovalocytes [place] Cells Acanthocytes (Spur) PT INR APTT Fibrinogen VBG pH VBG pCO2 VBG pO2 VBG HCO3 VBG O2 Saturation VBG Base Excess Sodium Potassium Chloride Carbon Dioxide Anion Gap BUN Creatinine Estim Creat Clear Calc Estimated GFR POC Glucose 183 H 188 H Random Glucose Lactic Acid Lactic Acid F/U @ 2Hr Calcium Phosphorus Magnesium Iron TIBC % Saturation Unsat Iron Binding Total Bilirubin Direct Bilirubin AST ALT Alkaline Phosphatase Ammonia Troponin I High Sens 14.3 B-Natriuretic Peptide Total Protein Albumin Lipase Vitamin B12 Folate TSH Thyroxine (T4) Hepatitis A IgM Ab Hep Bs Antigen Hep Bs Antibody Hep B Core Total Ab Hep B Core IgM Ab Hepatitis C Ab (EIA) Influenza Type A (PCR) Influenza Type B (PCR) RSV RNA Qual (PCR) SARS-CoV-2 RNA (RT-PCR) 11/23/24 11/23/24 11/23/24 04:33 06:40 07:08 WBC 5.8 RBC 2.90 L D Hgb 7.9 L D Hct 24.4 L D MCV 84.1 MCH 27.2 MCHC 32.4 RDW 18.6 H Plt Count 36 L D MPV Not Reportable Immature Gran % (Auto) Neut % (Auto) Lymph % (Auto) [place] % (Auto) Eos % (Auto) Baso % (Auto) Lymph # (Auto) [place] # (Auto) Eos # (Auto) Baso # (Auto) Abs Immat Gran (auto) Absolute Neuts (auto) Absolute Nucleated RBC 0.000 Nucleated RBC % (auto) 0.0 Neutrophils % (Manual) 80 H Band Neutrophils % 3 Lymphocytes % (Manual) 13 L Monocytes % (Manual) 2 Eosinophils % (Manual) 1 Basophils % (Manual) 1 Abs Neuts (Manual) 4.8 Lymphocytes # (Manual) 0.8 L Monocytes # (Manual) 0.1 Eosinophils # (Manual) 0.1 Basophils # (Manual) 0.1 Smudge Cells PRESENT Platelet Estimate DECREASED Plt Morphology Comment NORMAL RBC Morphology NOTED Hypochromasia 1+ (5-14) Ovalocytes 1+ (5-14) Rupert Cells 2+ (3-5) Acanthocytes (Spur) 2+ (3-5) PT INR APTT Fibrinogen VBG pH VBG pCO2 VBG pO2 VBG HCO3 VBG O2 Saturation VBG Base Excess Sodium 132 L Potassium 4.4 Chloride 94 L Carbon Dioxide 25 Anion Gap 17 BUN 35 H Creatinine 4.04 H* Estim Creat Clear Calc 14.5 Estimated GFR 15 POC Glucose 195 H 214 H Random Glucose 223 H Lactic Acid Lactic Acid F/U @ 2Hr Calcium 8.3 L Phosphorus Magnesium Iron TIBC % Saturation Unsat Iron Binding Total Bilirubin 0.5 Direct Bilirubin AST 61 H ALT 43 H Alkaline Phosphatase 156 H Ammonia Troponin I High Sens B-Natriuretic Peptide Total Protein 5.0 L Albumin 2.4 L Lipase Vitamin B12 Folate TSH Thyroxine (T4) Hepatitis A IgM Ab Nonreactive Hep Bs Antigen Negative Hep Bs Antibody REACTIVE Hep B Core Total Ab Reactive Hep B Core IgM Ab Cancelled Hepatitis C Ab (EIA) Reactive H Influenza Type A (PCR) Influenza Type B (PCR) RSV RNA Qual (PCR) SARS-CoV-2 RNA (RT-PCR) 11/23/24 11/23/24 11/23/24 08:22 08:22 08:22 WBC RBC Hgb Hct MCV MCH MCHC RDW Plt Count MPV Immature Gran % (Auto) Neut % (Auto) Lymph % (Auto) [place] % (Auto) Eos % (Auto) Baso % (Auto) Lymph # (Auto) [place] # (Auto) Eos # (Auto) Baso # (Auto) Abs Immat Gran (auto) Absolute Neuts (auto) Absolute Nucleated RBC Nucleated RBC % (auto) Neutrophils % (Manual) Band Neutrophils % Lymphocytes % (Manual) Monocytes % (Manual) Eosinophils % (Manual) Basophils % (Manual) Abs Neuts (Manual) Lymphocytes # (Manual) Monocytes # (Manual) Eosinophils # (Manual) Basophils # (Manual) Smudge Cells Platelet Estimate Plt Morphology Comment RBC Morphology Hypochromasia Ovalocytes Rupert Cells Acanthocytes (Spur) PT Cancelled 13.5 H INR Cancelled 1.2 H APTT Cancelled Fibrinogen VBG pH VBG pCO2 VBG pO2 VBG HCO3 VBG O2 Saturation VBG Base Excess Sodium Potassium Chloride Carbon Dioxide Anion Gap BUN Creatinine Estim Creat Clear Calc Estimated GFR POC Glucose Random Glucose Lactic Acid Lactic Acid F/U @ 2Hr Calcium Phosphorus Magnesium Iron TIBC % Saturation Unsat Iron Binding Total Bilirubin Direct Bilirubin AST ALT Alkaline Phosphatase Ammonia Troponin I High Sens B-Natriuretic Peptide Total Protein Albumin Lipase Vitamin B12 Folate TSH Thyroxine (T4) Hepatitis A IgM Ab Hep Bs Antigen Hep Bs Antibody Hep B Core Total Ab Hep B Core IgM Ab Hepatitis C Ab (EIA) Influenza Type A (PCR) Influenza Type B (PCR) RSV RNA Qual (PCR) SARS-CoV-2 RNA (RT-PCR) 11/23/24 08:22 WBC RBC Hgb Hct MCV MCH MCHC RDW Plt Count MPV Immature Gran % (Auto) Neut % (Auto) Lymph % (Auto) [place] % (Auto) Eos % (Auto) Baso % (Auto) Lymph # (Auto) [place] # (Auto) Eos # (Auto) Baso # (Auto) Abs Immat Gran (auto) Absolute Neuts (auto) Absolute Nucleated RBC Nucleated RBC % (auto) Neutrophils % (Manual) Band Neutrophils % Lymphocytes % (Manual) Monocytes % (Manual) Eosinophils % (Manual) Basophils % (Manual) Abs Neuts (Manual) Lymphocytes # (Manual) Monocytes # (Manual) Eosinophils # (Manual) Basophils # (Manual) Smudge Cells Platelet Estimate Plt Morphology Comment RBC Morphology Hypochromasia Ovalocytes Rupert Cells Acanthocytes (Spur) PT INR APTT 42.0 H Fibrinogen 183 L VBG pH VBG pCO2 VBG pO2 VBG HCO3 VBG O2 Saturation VBG Base Excess Sodium Potassium Chloride Carbon Dioxide Anion Gap BUN Creatinine Estim Creat Clear Calc Estimated GFR POC Glucose Random Glucose Lactic Acid Lactic Acid F/U @ 2Hr Calcium Phosphorus Magnesium Iron 49 TIBC 74 L % Saturation 66 H Unsat Iron Binding < 25 Total Bilirubin Direct Bilirubin AST ALT Alkaline Phosphatase Ammonia Troponin I High Sens B-Natriuretic Peptide Total Protein Albumin Lipase Vitamin B12 > 2000 H Folate 12.2 TSH Thyroxine (T4) Hepatitis A IgM Ab Hep Bs Antigen Hep Bs Antibody Hep B Core Total Ab Hep B Core IgM Ab Hepatitis C Ab (EIA) Influenza Type A (PCR) Influenza Type B (PCR) RSV RNA Qual (PCR) SARS-CoV-2 RNA (RT-PCR) ECG Interpretation: EKG shows sinus rhythm, deep T inversions in the anterior leads. Ventricular rate 86/Min. Normal VT and corrected QT. this change was not seen in the prior EKG from 2022. Assessment and Plan (1) Abnormal EKG: Status: Acute (2) Hypoglycemia: Status: Acute (3) ESRD (end stage renal disease) on dialysis: Status: Acute (4) Acute metabolic encephalopathy due to hypoglycemia: Status: Acute Plan Labs reviewed. Troponin levels are 19 and 14. Cardiac BNP level 2703 and 1600. In 202, it was around 3500. Platelet counts are quite low in the 30s. Abnormal thyroid function. Echocardiogram 2022-LVEF of 45-50%. Restrictive filling. Severe left atrial dilatation. Myocardial perfusion imaging study from 2022 showed normal perfusion. Overall, hyperglycemia, encephalopathy, severe thrombocytopenia, abnormal EKG. EKG findings could reflect LAD territory ischemia. Likely second-degree to the above. It could also be stress-induced cardiomyopathy type finding. In the current situation, he is really not suitable for invasive procedures like cardiac catheterization. Mainly treat the primary issues. Because of severe thrombocytopenia, there is high bleeding risk with IV heparin drip and hence do not use for now. Not suitable for antiplatelet drugs either. With severe hyperglycemia, beta-blockers will also be challenging. Obtain repeat echocardiogram. Overall, difficult situation. Guarded prognosis. We will follow up with you. Procedures Date of Service Date of Service: 11/23/24
[2024-11-23 09:43] LABS: Ferritin 4133 ng/mL (20-250)
[2024-11-23] MEDS: Thiamine HCL 100 MG TABLET PO (10:44)
[2024-11-23] MEDS: Piperacillin Sodium/Tazobactam 2.25 GM in 0.9 % Sodium Chloride 50 ML IV ×2 (10:45→17:14)
[2024-11-23] MEDS: DULoxetine HCl 60 MG CAPSULE.DR PO (10:45)
[2024-11-23] MEDS: Cyanocobalamin (Vitamin B-12) 1,000 MCG TABLET 1000 MCG PO (10:45)
[2024-11-23] MEDS: Folic Acid 1 MG TABLET PO (10:45)
[2024-11-23 11:17] LABS: Glucose, Whole Blood 234 mg/dL (60-115)
--- NOTE | 2024-11-23 11:28 | MHC.CLN ---
RE: CONSULT PT IS MODERATELY MALNOURISHED PT WITH MILDLY DEPLETED SUBCUTANEOUS FAT AND MUSCLE MASS WITH CHRONIC POOR PO INTAKE DIET RX: PUREED-APPROPRIATE RECOMMEND ADDING ENSURE BID TO INCREASED KCALS SUPP TO PROVIDE 700KCALS, 40G PROTEIN MONITOR PO INTAKE AND ENCOURAGE SUPPLEMENT SEE CLINICAL NUTRITION ASSESSMENT
--- NOTE | 2024-11-23 11:33 | MHC.SL.SWA ---
Speech Pathologist Impression: Moderate facial swelling, does not interfere with oral phase of swallow. Pt has hx of aspiration PNA, no overt s/s with thins by straw and tsp of puree. [employer] following closey. Risk of Aspiration Due to: Medically Fragile History of Pneumonia Reduced Cognition Dysphasia Diet Status: Liquid Consistency and Strategies for Safe Swallow: Liquid Intake Recommendation: Thin Liquid Intake Strategies: Small Sips Solid Food Consistency: Dietary Recommendations: Pureed (NDD1) Additional Modifications to Solid Foods: Oral Medication Intake: Crushed with Puree Please contact the pharmacy regarding appropriate crushable or liquid drug formulations that are available whenever modified delivery is recommended. Compensatory Strategies and Precautions to be Taken for Safe Swallow: Sitting Upright (90 deg) Liquids from Straw Small Bites and Sips Oral Check Supervision While Eating and Drinking for Safe Swallow: Total Supervision (1:1) Foods to Avoid: Swallowing Recommended Treatments: Compens. Strategy Educat. Recommendation for Speech: Inpatient Speech Therapy Comment: Minimal trials of thin liquids by straw and tsp of puree presented. Pt mouth and face are significantly swollen. Pt tolerated sups of thins and tsp of puree with adequate oropharyngeal coordination, despite upper lip swelling. RN consulted, Recc NDD1 with thins, aspiration precautions, [employer] to follow. Frequency/Duration: Daily M-F Date Range for Service Req: Timeline to reassess: Product Development Assistant Clinican/Clinical Fellow: No Supervisory Statement: I have reviewed and agree with the student/clinical fellow's documentation: N/A Speech Language Pathologist: Nohelia Moore M.S., CCC-[employer]
--- NOTE | 2024-11-23 12:10 | MHC.CM.PN ---
IMM 11/23. Pt is a LTC resident at [facility], he will return there via BLS once medically cleared. Pt states he uses a wheelchair. Pt goes to HD on //Sat. HCP on file and verified. PCP: Dr. Juan Antonio Parrish
[2024-11-23] MEDS: Insulin Lispro 100 UNIT/ML 3 ML VIAL SUBCUT ×2 (13:19→17:14)
--- NOTE | 2024-11-23 14:39 | PM.HEMONCCN ---
Subjective - Subjective Chief complaint: Weakness Patient: new to practice Consult date: 11/23/24 Primary Care Provider: JULIOCESAR SCHWARTZ Medical Translator Utilized?: No - Azeri Speaking HPI - Consult Narrative Reason for consult: Thrombocytopenia/pancytopenia Narrative: Ignacio Drake is a 64 year old male with PMH significant for?ESRD on HD T//Sat, type I brittle diabetes, NSTEMI 11/2022, HLD, COPD, BPH, CHF, seizure disorder, anemia of chronic disease, chronic thrombocytopenia, hepatitis C, unspecified dementia, mood disorder, among others who presents to the ED from [facility] for evaluation of increased confusion and lethargy. Per staff pt was in his normal state of health this morning but became limp and unresponsive when transferred to his wheelchair. Normally AOx3 and uses wheelchair at baseline. Pt was recently admitted to [facility] on 10/26-10/31 for failure to thrive, dehydration, and encephlopathy thought secondary to multifocal pneumonia. Was discharged to [facility] and represented 3 days later on 11/03 with recurrent lethargy and encephalopathy. Was admitted again for multifocal peumonia, aspiration pneumonia, and cavitary lesions. TB ruled out with negative AFB sputum cultures x3. Pt had low p.o. intake but refused NG or G-tube. Was discharged back to [facility] on Augmentin x4 weeks, set to end on 12/04. In labs were significant for multiple episodes of hypoglycemia with POC of 36, 49, 43, and 47. Lactic acid 2.2 with repeat 1.8. AST 85, ALT 62, alk-phos 198. BNP 3651. Thrombocytopenia of 60. Leukopenia 4.2 (chronically low). Stable H&H 9.9/31.5 (around baseline). Chronic hyponatremia of 134. Tested negative for flu, COVID, RSV. VBG with pH 7.53, pCO2 40, and bicarb 34. CXR showed peripheral left basilar or ovoid 3.8 cm masslike opacity, possibly with representing soft tissue summation or external. CT?of head without acute intracranial findings. X-ray of hips and pelvis without acute findings. Abdominal ultrasound found coarsened hepatic echotexture without focal mass or biliary obstruction. Also showed right pleural effusion and small amount of ascites. CT of chest found bibasilar atelectasis vs pneumonia with small bilateral pleural effusions and suspicious left lower lobe nodule. Patient is a poor historian. He is not sure if he received treatment for hepatitis-C. He denies any bruising or bleeding. Review of Systems - Constitutional Reports as per HPI, Reports weight loss - Neurologic Reports no additional neurologic complaints, Reports as per HPI [facility] Medical History: Medical History (Last Reviewed 11/23/24 @ 00:02 by ALBERTO Mcintosh) Anemia Atrial fibrillation Bacteremia Benign prostate hyperplasia Cellulitis Constipation COPD (chronic obstructive pulmonary disease) Dementia Diabetes mellitus type 1 Dysphagia End stage renal disease on dialysis ESRD (end stage renal disease) on dialysis Gastrointestinal hemorrhage Hepatitis C Hyperkalemia Hyperlipemia Hypernatremia Hyperparathyroidism Hypertension Hypertensive cardiopathy Major depressive disorder Nicotine dependence Osteoarthritis Peripheral vascular disease Sepsis Septic shock Streptococcal sepsis, unspecified Systolic CHF Urine retention Vitamin D deficiency Social History: Social History (Last Reviewed 11/23/24 @ 00:02 by ALBERTO Mcintosh) Living Situation History: Household Members: Other Household Members Other:: [facility] Housing: Correction Do you presently have visiting nurse or other home services: Do you presently have visiting nurse or other home services comment: [facility] Alcohol History: Unable to assess alcohol history related to: Unable to respond Tobacco History: Patient Tobacco Use Status: Current everyday Tobacco Tobacco use type: Cigarette Second Hand Smoke Exposure: No Advance Directives: Advance Directives Date on File: 06/22/22 Occupation Assessmet: service: No Current occupational status: disabled Home Medications and Allergies Current Medications: Current Medications Acetaminophen (Acetaminophen 325 Mg Tablet) 650 mg PO Q6H PRN PRN Reason: Fever Or Pain Acetaminophen (Acetaminophen Supp 650 Mg Supp.Rect) 650 mg ID Q6H PRN PRN Reason: Fever Or Pain Calcium Carbonate (Calcium Carbonate 750 Mg Tab.Chew) 750 mg PO Q4H PRN PRN Reason: Heartburn Cyanocobalamin (Cyanocobalamin (Vitamin B-12) 1,000 Mcg Tablet) 1,000 mcg PO DAILY ESTELA Last Admin: 11/23/24 10:45 Dose: 1,000 mcg Dextrose (Dextrose 50 % 25 Gm/50 Ml Syringe) 25 gm IVPUSH Q15M PRN; Protocol PRN Reason: per Hypoglycemia Standing Ord. Dextrose (Dextrose 50 % 25 Gm/50 Ml Syringe) 25 gm IVPUSH Q15M PRN; Protocol PRN Reason: per Hypoglycemia Standing Ord. Duloxetine HCl (Duloxetine Hcl 60 Mg Capsule.Dr) 60 mg PO DAILY [facility] Last Admin: 11/23/24 10:45 Dose: 60 mg Epinephrine (Epinephrine 1 Mg/Ml Vial) 0.3 mg IM Q5M PRN PRN Reason: Anaphylaxis Ergocalciferol (Ergocalciferol (Vitamin D2) 1,250 Mcg Capsule) 1,250 mcg PO WE@0900 [facility] Folic Acid (Folic Acid 1 Mg Tablet) 1 mg PO DAILY [facility] Last Admin: 11/23/24 10:45 Dose: 1 mg Glucagon (Glucagon Hcl 1 Mg Vial) 1 mg IM Q15M PRN PRN Reason: low BS Glucose (Glucose Gel 15 Gm Gel..Gram.) 15 gm PO Q15M PRN; Protocol PRN Reason: per Hypoglycemia Standing Ord. Glucose (Glucose Gel 15 Gm Gel..Gram.) 15 gm PO Q15M PRN; Protocol PRN Reason: per Hypoglycemia Standing Ord. Vancomycin HCl 500 mg/ Sodium (Chloride) 110 mls @ 110 mls/hr IV TuThSa@1800 [facility] Piperacillin Sod/Tazobactam (Sod 2.25 gm/ Sodium Chloride) 50 mls @ 100 mls/hr IV Q8H [facility] Insulin Human Lispro (Insulin Lispro 100 Unit/Ml 3 Ml Vial) 0 unit SUBCUT QIDACHS [facility]; Protocol Last Admin: 11/23/24 13:19 Dose: 6 unit Levothyroxine Sodium (Levothyroxine Sodium 100 Mcg/5 Ml Vial) 50 mcg IVPUSH DAILY@0600 [facility] Last Admin: 11/23/24 06:42 Dose: 50 mcg Magnesium Hydroxide (Milk Of Magnesia 30 Ml Oral.Susp) 30 ml PO DAILY PRN PRN Reason: Constipation Melatonin (Melatonin 3 Mg Tablet) 6 mg PO BEDTIME [facility] Last Admin: 11/22/24 20:38 Dose: 6 mg Mirtazapine (Mirtazapine 15 Mg Tablet) 15 mg PO BEDTIME [facility] Last Admin: 11/22/24 20:45 Dose: 15 mg Naloxone HCl (Naloxone Hcl 0.4 Mg/Ml Vial) 0.4 mg SUBCUT Q2M PRN PRN Reason: Anaphylaxis Naloxone HCl (Naloxone Hcl Nasal 4 Mg [place]) 4 mg NOSTRILALT Q2M PRN PRN Reason: overdose Oxycodone HCl (Oxycodone Hcl Immed Release 5 Mg Tablet) 5 mg PO Q6H PRN PRN Reason: Pain (Scale Score 4-6) Last Admin: 11/23/24 10:45 Dose: 5 mg Pharmacy Consult (Consult Rx Vancomycin Dosing) 1 each MISCELLANE DAILY PRN PRN Reason: Consult order Sodium Chloride (0.9 % Sodium Chloride Flush 3 Ml Syringe) 3 ml IVFLUSH QSHIFT [facility] Last Admin: 11/23/24 08:35 Dose: Not Given Tamsulosin HCl (Tamsulosin Hcl 0.4 Mg Capsule) 0.4 mg PO BEDTIME [facility] Last Admin: 11/22/24 20:38 Dose: 0.4 mg Thiamine HCl (Thiamine Hcl 100 Mg Tablet) 100 mg PO DAILY [facility] Last Admin: 11/23/24 10:44 Dose: 100 mg Home Medications ?Medication ?Instructions ?Recorded ?Confirmed ?Type duloxetine 60 mg capsule,delayed 1 cap PO DAILY 06/17/22 11/22/24 History release insulin lispro 100 unit/mL See Protocol subcut TIDAC 06/17/22 11/22/24 History subcutaneous solution (Humalog U-100 Insulin) mirtazapine 15 mg tablet 1 tab PO BEDTIME 06/17/22 11/22/24 History tamsulosin 0.4 mg capsule 1 cap PO BEDTIME 06/17/22 11/22/24 History acetaminophen 325 mg tablet 650 mg PO Q6H PRN Fever Or Pain 11/20/22 11/22/24 History acetaminophen 650 mg rectal 650 mg ID Q6H PRN Fever Or Pain 11/20/22 11/22/24 History suppository insulin glargine 100 unit/mL (3 1 unit subcut BEDTIME 11/20/22 11/22/24 History mL) subcutaneous pen (Lantus Solostar U-100 Insulin) melatonin 5 mg tablet 5 mg PO BEDTIME Sleep 11/20/22 11/22/24 History oxycodone 5 mg tablet 5 mg PO Q6H PRN Pain (Scale Score 11/20/22 11/22/24 History 4-6) amoxicillin 500 mg-potassium 1 tab PO BEDTIME 11/22/24 11/22/24 History clavulanate 125 mg tablet (Augmentin) atorvastatin 40 mg tablet 40 mg PO BEDTIME 11/22/24 11/22/24 History cholecalciferol (vitamin D3) 1,250 1,250 mcg PO QMONTH 11/22/24 11/22/24 History mcg (50,000 unit) capsule cyanocobalamin (vitamin B-12) 1,000 mcg PO DAILY 11/22/24 11/22/24 History 1,000 mcg tablet epinephrine 0.3 mg/0.3 mL 0.3 mg IM Q5M PRN Anaphylaxis 11/22/24 11/22/24 History injection, auto-injector (EpiPen) ergocalciferol (vitamin D2) 1,250 1,250 mcg PO WE@0900 11/22/24 11/22/24 History mcg (50,000 unit) capsule folic acid 1 mg tablet 1 mg PO DAILY 11/22/24 11/22/24 History glucagon 1 mg/0.2 mL subcutaneous 1 mg subcut Q15M PRN low BS 11/22/24 11/22/24 History solution (Gvoke) naloxone 0.4 mg/mL injection 0.4 mg subcut Q2M PRN Anaphylaxis 11/22/24 11/22/24 History solution naloxone 4 mg/actuation nasal spray 4 mg intranasal Q2M PRN overdose 11/22/24 11/22/24 History thiamine HCl (vitamin B1) 100 mg 100 mg PO DAILY 11/22/24 11/22/24 History tablet Allergies Allergy/AdvReac Type Severity Reaction Status Date / Time No Known Allergies Allergy Verified 11/22/24 10:28 Physical Exam Vital signs: Vital Signs Temp 98.7 F 11/23/24 11:56 Pulse 92 11/23/24 11:09 Resp 17 11/23/24 11:09 BP 139/74 11/23/24 11:09 Pulse Ox 96 11/23/24 11:09 O2 Del Method Nasal Cannula 11/23/24 11:09 O2 Flow Rate 2 11/23/24 11:09 Intake & Output 11/22/24 11/23/24 11/23/24 18:59 06:59 18:59 Intake Total 1400 / 1450 50 / 1450 1378.333 / 1378.333 Balance 1400 / 1450 50 / 1450 1378.333 / 1378.333 Intake: Intake, Oral Amount 440 / 440 Intake, IV Amount 1400 / 1450 50 / 1450 938.333 / 938.333 Albumin Human 25 % 100 ml @ 100 100 / 100 100 / 100 mls/hr IV Q6H [facility] Rx#: [id number] Lactated Ringers 1,000 ml @ 999 1000 / 1000 mls/hr IV .Q1H1M [facility] Rx#: [id number] Piperacillin Sodium/Tazobactam 50 / 100 50 / 100 50 / 50 2.25 gm In 0.9 % Sodium Chloride 50 ml @ 100 mls/hr IV Q12H [facility] Rx#:[id number] vancomycin HCL 1,250 mg In 0.9 250 / 250 % Sodium Chloride 250 ml @ 166. 667 mls/hr IV ONCE ONE Rx#: [id number] Lactated Ringers 1,000 ml @ 100 788.333 / 788.333 mls/hr IVCONT .Q10H [facility] Rx#: [id number] Other: Lunch % Eaten 50% Eating (Feeding) Ability Set Up only Number of Unmeasured Voids 0 Last Bowel Movement 11/21/24 Weight 54.431 kg 59.6 kg Weight in Grams 70914 Weight 59.6 kg Narrative: Patient resting comfortably, alert oriented x3. - Constitutional Present: no acute distress - Routine HEENT Exam Head: Present: normal inspection Eye: Present: EOMI, PERRL - Routine Neck Exam Present: supple - Routine Respiratory Exam Absent: accessory muscle use - Routine Cardiovascular Exam Cardiovascular: Present: S1, S2 - Routine Abdominal Exam Absent: mass - Routine Extremities Exam Present: pulses intact Hem/Onc Consult Result - Labs CBC & Chem 7: 11/23/24 04:33 11/23/24 04:33 Labs: Short CBC 11/23/24 Range/Units 04:33 WBC 5.8 (4.8-10.8) X10*3/uL Hgb 7.9 L D (14.0-18.0) g/dl Hct 24.4 L D (42.0-52.0) % Plt Count 36 L D (160-400) X10*3/uL BMP 11/23/24 04:33 Sodium 132 L Potassium 4.4 Chloride 94 L Carbon Dioxide 25 BUN 35 H Creatinine 4.04 H* Calcium 8.3 L Liver Function 11/23/24 Range/Units 04:33 Total Bilirubin 0.5 (0.0-1.0) mg/dL AST 61 H (5-37) U/L ALT 43 H (0-40) U/L Alkaline Phosphatase 156 H (39-117) U/L Albumin 2.4 L (3.5-5.0) g/dL Assessment and Plan Patient Active problem list reviewed?: Yes (1) Thrombocytopenia Status: Acute Assessment and plan: 1. This is a 64-year-old male with multiple medical problems including end-stage renal disease, history of hepatitis-C, chronic pancytopenia presenting with acute metabolic encephalopathy secondary to aspiration pneumonia. He is receiving IV antibiotics Zosyn and vancomycin. His mentation appears to have improved although he is still a poor historian. Reviewing records from [facility], patient has chronic thrombocytopenia with platelet counts ranging from 50-100 K. he has had recent admissions to [facility] in October 2024 with similar complaints. He was diagnosed with aspiration pneumonia, patient refused G-tube placement. Worsening thrombocytopenia is likely related to pneumonia, poor nutrition, antibiotic use and underlying liver disease/hepatitis-C. Acute worsening of anemia is also secondary to all of the above including end-stage renal disease. He has been on Procrit/LIN therapy with dialysis. He should be continued on this. He does not have any hematinic deficiencies. Low-grade DIC is possible, is mild elevation of PT/PTT with mildly decreased fibrinogen level. Monitor blood counts closely. Thank you, will follow with you. - Time Spent With Patient Time Spent with Patient (in minutes): 20
--- NOTE | 2024-11-23 15:19 | PM.CNNEP ---
History of Present Illness Reason for Consult Consult date: 11/23/24 Reason for consult: ESRD and need foir HD Chief Complaint Chief complaint: Hypothermia, SIRS History of Present Illness Narrative: [facility] consulted for HD management. Well known to [facility] and usu gets HD mwf [facility] unit. Adm now with AMS, low BP. PT is poor hsitoriamn and info obatained form EHR. Last oupt HD labs noted Hb 11.3 abd PLT 90 Hosp course has included IVF and BP better Signif drop in Hb and PLTs noted on labs and Heme consulted Review of Systems Review of Systems Negative except for that which is stated in the HPI. Though it should be noted pt is a poor historian. Yes all other systems are reviewed and are negative and Unobtainable due to mental condition Constitutional: Reports as per HPI, Reports no additional constitutional complaints, Denies fatigue, Denies malaise, Denies night sweats, Denies poor appetite and Reports weight loss Eyes: Reports as per HPI and Denies no additional eye complaints Denies system reviewed and no additional complaints, except as documented and Reports as per HPI Cardiovascular: Reports as per HPI, Reports no additional cardiovascular complaints, Denies acrocyanosis, Denies cool extremities, Denies chest pain, Denies leg edema, Denies lightheadedness, Denies palpitations and Denies dyspnea Respiratory: Reports as per HPI, Reports no additional respiratory complaints and Denies dyspnea Gastrointestinal: Reports as per HPI and Reports no additional gastrointestinal complaints Genitourinary: Reports no additional male genitourinary complaints and Reports as per HPI Musculoskeletal: Reports no additional musculoskeletal complaints and Reports as per HPI Skin/Breast: Reports system reviewed and no additional complaints, except as docu Reports system reviewed and no additional complaints, except as documented and Reports as per HPI Psychiatric: Reports no additional psychiatric complaints and Reports as per HPI Endocrine: Reports no additional endocrine complaints, Reports as per HPI, Denies fatigue and Denies palpitations Hematologic/Lymphatic: Reports no additional hematologic/lymphatic complaints and Reports as per HPI Allergic/Immunologic: Reports no additional allergic/immunologic complaints and Reports as per HPI PMF Past Medical History Medical History Hypernatremia Vitamin D deficiency Hyperkalemia Hyperparathyroidism Dysphagia Hyperlipemia Hypertension Major depressive disorder Urine retention Systolic CHF Dementia Benign prostate hyperplasia Nicotine dependence Constipation Osteoarthritis Anemia Peripheral vascular disease Atrial fibrillation Gastrointestinal hemorrhage End stage renal disease on dialysis Hepatitis C COPD (chronic obstructive pulmonary disease) Cellulitis Streptococcal sepsis, unspecified Bacteremia Septic shock Sepsis Diabetes mellitus type 1 Hypertensive cardiopathy ESRD (end stage renal disease) on dialysis Family History Pertinent family history: No pertinent family history Social History Social History Household Members: Other Household Members Other:: [facility] Housing: [facility] Unable to assess alcohol history related to: Unable to respond Alcohol intake: never Patient Tobacco Use Status: Current everyday Tobacco user Tobacco use type: Cigarette Second Hand Smoke Exposure: No Advance Directives Date on File: 06/22/22 service: No Current occupational status: disabled Meds Allergies Allergy/AdvReac Type Severity Reaction Status Date / Time No Known Allergies Allergy Verified 11/22/24 10:28 Active Medications: Current Medications Acetaminophen (Acetaminophen 325 Mg Tablet) 650 mg PO Q6H PRN PRN Reason: Fever Or Pain Calcium Carbonate (Calcium Carbonate 750 Mg Tab.Chew) 750 mg PO Q4H PRN PRN Reason: Heartburn Cyanocobalamin (Cyanocobalamin (Vitamin B-12) 1,000 Mcg Tablet) 1,000 mcg PO DAILY [facility] Last Admin: 11/23/24 10:45 Dose: 1,000 mcg Dextrose (Dextrose 50 % 25 Gm/50 Ml Syringe) 25 gm IVPUSH Q15M PRN; Protocol PRN Reason: per Hypoglycemia Standing Ord. Dextrose (Dextrose 50 % 25 Gm/50 Ml Syringe) 25 gm IVPUSH Q15M PRN; Protocol PRN Reason: per Hypoglycemia Standing Ord. Duloxetine HCl (Duloxetine Hcl 60 Mg Capsule.Dr) 60 mg PO DAILY [facility] Last Admin: 11/23/24 10:45 Dose: 60 mg Epinephrine (Epinephrine 1 Mg/Ml Vial) 0.3 mg IM Q5M PRN PRN Reason: Anaphylaxis Ergocalciferol (Ergocalciferol (Vitamin D2) 1,250 Mcg Capsule) 1,250 mcg PO WE@0900 [facility] Folic Acid (Folic Acid 1 Mg Tablet) 1 mg PO DAILY [facility] Last Admin: 11/23/24 10:45 Dose: 1 mg Glucagon (Glucagon Hcl 1 Mg Vial) 1 mg IM Q15M PRN PRN Reason: low BS Glucose (Glucose Gel 15 Gm Gel..Gram.) 15 gm PO Q15M PRN; Protocol PRN Reason: per Hypoglycemia Standing Ord. Glucose (Glucose Gel 15 Gm Gel..Gram.) 15 gm PO Q15M PRN; Protocol PRN Reason: per Hypoglycemia Standing Ord. Vancomycin HCl 500 mg/ Sodium (Chloride) 110 mls @ 110 mls/hr IV TuThSa@1800 [facility] Piperacillin Sod/Tazobactam (Sod 2.25 gm/ Sodium Chloride) 50 mls @ 100 mls/hr IV Q8H [facility] Insulin Human Lispro (Insulin Lispro 100 Unit/Ml 3 Ml Vial) 0 unit SUBCUT QIDACHS [facility]; Protocol Last Admin: 11/23/24 13:19 Dose: 6 unit Levothyroxine Sodium (Levothyroxine Sodium 25 Mcg Tablet) 25 mcg PO DAILY@0600 [facility] Magnesium Hydroxide (Milk Of Magnesia 30 Ml Oral.Susp) 30 ml PO DAILY PRN PRN Reason: Constipation Melatonin (Melatonin 3 Mg Tablet) 6 mg PO BEDTIME [facility] Last Admin: 11/22/24 20:38 Dose: 6 mg Mirtazapine (Mirtazapine 15 Mg Tablet) 15 mg PO BEDTIME [facility] Last Admin: 11/22/24 20:45 Dose: 15 mg Naloxone HCl (Naloxone Hcl 0.4 Mg/Ml Vial) 0.4 mg SUBCUT Q2M PRN PRN Reason: Anaphylaxis Naloxone HCl (Naloxone Hcl Nasal 4 Mg Pollock) 4 mg NOSTRILALT Q2M PRN PRN Reason: overdose Oxycodone HCl (Oxycodone Hcl Immed Release 5 Mg Tablet) 5 mg PO Q6H PRN PRN Reason: Pain (Scale Score 4-6) Last Admin: 11/23/24 14:57 Dose: 5 mg Pantoprazole Sodium (Pantoprazole Sodium 40 Mg/10 Ml Vial) 40 mg IVPUSH BID@0630,1630 [facility] Pharmacy Consult (Consult Rx Vancomycin Dosing) 1 each MISCELLANE DAILY PRN PRN Reason: Consult order Sodium Chloride (0.9 % Sodium Chloride Flush 3 Ml Syringe) 3 ml IVFLUSH QSHIFT [facility] Last Admin: 11/23/24 08:35 Dose: Not Given Tamsulosin HCl (Tamsulosin Hcl 0.4 Mg Capsule) 0.4 mg PO BEDTIME [facility] Last Admin: 11/22/24 20:38 Dose: 0.4 mg Thiamine HCl (Thiamine Hcl 100 Mg Tablet) 100 mg PO DAILY [facility] Last Admin: 11/23/24 10:44 Dose: 100 mg Home Medications ?Medication ?Instructions ?Recorded ?Confirmed ?Last Taken ?Type duloxetine 60 mg capsule,delayed 1 cap PO DAILY 06/17/22 11/22/24 11/21/24 History release insulin lispro 100 unit/mL See Protocol subcut TIDAC 06/17/22 11/22/24 11/21/24 History subcutaneous solution (Humalog U-100 Insulin) mirtazapine 15 mg tablet 1 tab PO BEDTIME 06/17/22 11/22/24 11/21/24 History tamsulosin 0.4 mg capsule 1 cap PO BEDTIME 06/17/22 11/22/24 11/21/24 History acetaminophen 325 mg tablet 650 mg PO Q6H PRN Fever Or Pain 11/20/22 11/22/24 07/01/24 History acetaminophen 650 mg rectal 650 mg TN Q6H PRN Fever Or Pain 11/20/22 11/22/24 Unknown History suppository insulin glargine 100 unit/mL (3 1 unit subcut BEDTIME 11/20/22 11/22/24 11/21/24 History mL) subcutaneous pen (Lantus Solostar U-100 Insulin) melatonin 5 mg tablet 5 mg PO BEDTIME Sleep 11/20/22 11/22/24 11/21/24 History oxycodone 5 mg tablet 5 mg PO Q6H PRN Pain (Scale Score 11/20/22 11/22/24 11/20/24 History 4-6) amoxicillin 500 mg-potassium 1 tab PO BEDTIME 11/22/24 11/22/24 11/21/24 History clavulanate 125 mg tablet (Augmentin) atorvastatin 40 mg tablet 40 mg PO BEDTIME 11/22/24 11/22/24 11/21/24 History cholecalciferol (vitamin D3) 1,250 1,250 mcg PO QMONTH 11/22/24 11/22/24 11/01/24 History mcg (50,000 unit) capsule cyanocobalamin (vitamin B-12) 1,000 mcg PO DAILY 11/22/24 11/22/24 11/21/24 History 1,000 mcg tablet epinephrine 0.3 mg/0.3 mL 0.3 mg IM Q5M PRN Anaphylaxis 11/22/24 11/22/24 Unknown History injection, auto-injector (EpiPen) ergocalciferol (vitamin D2) 1,250 1,250 mcg PO WE@0900 11/22/24 11/22/24 11/18/24 History mcg (50,000 unit) capsule folic acid 1 mg tablet 1 mg PO DAILY 11/22/24 11/22/24 11/21/24 History glucagon 1 mg/0.2 mL subcutaneous 1 mg subcut Q15M PRN low BS 11/22/24 11/22/24 Unknown History solution (Gvoke) naloxone 0.4 mg/mL injection 0.4 mg subcut Q2M PRN Anaphylaxis 11/22/24 11/22/24 Unknown History solution naloxone 4 mg/actuation nasal spray 4 mg intranasal Q2M PRN overdose 11/22/24 11/22/24 Unknown History thiamine HCl (vitamin B1) 100 mg 100 mg PO DAILY 11/22/24 11/22/24 11/21/24 History tablet Physical Exam Vital Signs: Last Vital Signs Temp 99 F 11/23/24 15:05 Pulse 97 11/23/24 15:05 Resp 17 11/23/24 15:05 BP 128/82 11/23/24 15:05 Pulse Ox 99 11/23/24 15:05 O2 Del Method Room Air 11/23/24 15:05 O2 Flow Rate 2 11/23/24 11:09 BMI result Body Mass Index 20.6 Const General: comfortable and no acute distress Orientation/consciousness: patient oriented x3 HEENT Other: Unremarkable Head: Yes normal to inspection Neck Neck: Yes normal visual inspection Chest Chest palpation & inspection: normal inspection of the chest Resp Auscultation: clear to auscultation bilaterally Cardio Palpation: normal PMI Heart sounds: S1 normal heart sound present, S2 normal heart sound present, no gallops, no murmurs and no rubs GI Palpation (GI): Soft to palpation Back/Spine/Pelvis Other: unremarkable Skin General skin exam: no rashes or lesions noted Neuro General: patient oriented x3 Extrem General: Yes normal to inspection Psych Mental Status: mental status grossly normal Results Lab Results 11/23/24 04:33 11/23/24 04:33 Lab results: Chemistry 11/22/24 11/23/24 10:04 04:33 Sodium 134 L 132 L Potassium 4.5 4.4 Carbon Dioxide 28 25 BUN 30 H 35 H Creatinine 3.75 H 4.04 H* Calcium 8.2 L D 8.3 L Phosphorus 4.0 Hematology 11/22/24 11/23/24 10:05 04:33 WBC 4.2 L 5.8 Hgb 9.9 L D 7.9 L D Plt Count 60 L D 36 L D Assessment and Plan (1) Thrombocytopenia: Status: Acute Plan 1. ESRD: mwf [facility] [place] 2. DM 3. Anemia and low PLT: runs chronically milde decr PLTs and anemia but signif decr since adm--w/u in progress; ques TMA vs other 4. AMS: ques BSL 5. CAD: w/u in progress for incr Trops and ques EKG changes REC: HD today, Heme eval and LDH, haptoglobin and peripher smear Case d/w Dr Krishnamurthy Procedures Date of Service Date of Service: 11/23/24
[2024-11-23 15:27] LABS: Cortisol Random 19.3 ug/dL
[2024-11-23 16:13] LABS: Glucose, Whole Blood 218 mg/dL (60-115)
[2024-11-23] MEDS: 0.9 % Sodium Chloride Flush 3 ML SYRINGE IVFLUSH ×2 (17:13→20:20)
[2024-11-23] MEDS: Pantoprazole Sodium 40 MG/10 ML VIAL IVPUSH (17:13)
[2024-11-23] MEDS: Lidocaine 4 % Patch ADH..PATCH 2 PATCH TRANSDERMA (17:20)
[2024-11-23 18:27] LABS: Lactate Dehydrogenase 168 U/L (118-273)
[2024-11-23 18:28] LABS: Haptoglobin 26 mg/dL (40-268); Red Cell Distribution Width 18.7 % (11.0-16.0)
[2024-11-23 18:30] LABS: Hematocrit 24.9 % (42.0-52.0); Mean Corpuscular HGB Conc 32.1 g/dl (31.0-36.0); Mean Corpuscular Hemoglobin 27.4 pg (27.0-33.0); Mean Corpuscular Volume 85.3 fL (80.0-98.0); Mean Platelet Volume 11.7 fL (9.4-12.4); Red Blood Count 2.92 X10*6/uL (4.60-5.80); White Blood Count 6.8 X10*3/uL (4.8-10.8)
[2024-11-23 18:46] LABS: PLT ABN DIST 1; Platelet Count 42 X10*3/uL (160-400)
[2024-11-23 19:58] LABS: Glucose, Whole Blood 127 mg/dL (60-115)
[2024-11-23] MEDS: Mirtazapine 15 MG TABLET PO (20:17)
[2024-11-23] MEDS: Melatonin 3 MG TABLET 6 MG PO (20:17)
[2024-11-23] MEDS: Tamsulosin HCL 0.4 MG CAPSULE PO (20:17)
[2024-11-23] MEDS: Glucose Gel 15 GM GEL..GRAM. PO (23:38)
[2024-11-23 23:39] LABS: Glucose, Whole Blood 55 mg/dL (60-115)
[2024-11-24] VITALS (7 sets, daily range): BP systolic 102–169; BP diastolic 62–102; PULSE 82–94; RESP 16–20; TEMP 35.9–37.2; O2SAT 96–100
[2024-11-24 00:03] LABS: Glucose, Whole Blood 54 mg/dL (60-115)
[2024-11-24] MEDS: Dextrose 50 % 25 GM/50 ML SYRINGE IVPUSH (00:07)
[2024-11-24 00:32] LABS: Glucose, Whole Blood 170 mg/dL (60-115)
[2024-11-24] MEDS: Piperacillin Sodium/Tazobactam 2.25 GM in 0.9 % Sodium Chloride 50 ML IV ×2 (03:11→10:20)
[2024-11-24] MEDS: oxyCODONE HCl Immed Release 5 MG TABLET PO ×4 (03:13→22:28)
[2024-11-24 03:48] LABS: Glucose, Whole Blood 72 mg/dL (60-115)
[2024-11-24 03:58] LABS: OBS Int Ctl Valid YES; OBS1 POSITIVE (NEGATIVE)
[2024-11-24] MEDS: Levothyroxine Sodium 25 MCG TABLET PO (06:13)
[2024-11-24] MEDS: Pantoprazole Sodium 40 MG/10 ML VIAL IVPUSH ×2 (06:13→17:31)
--- NOTE | 2024-11-24 07:00 | CA_ITS ---
Transthoracic Echocardiogram Patient (Last, First, Middle): Ignacio Drake, Gender: Male Date of : 1960 Age: 64 Procedure Date: 11/24/2024 Procedure Type: Transthoracic Echocardiogram [place] [facility] [place]: 182.88 cm Weight: 54.43 kg BSA: 1.71 m2 Heart Rate: bpm BP: 157 / 92 mmHg [employer]: [id number] Referring MD: Alisha DOMINGUEZ Symptoms: Ekg changes Study Quality: Adequate ECG Rhythm: Sinus Conclusions: - The left ventricular systolic function is low normal. The calculated ejection fraction is 54% by biplane method. - There is severely increased left ventricular wall thickness. - No obvious valvular pathology seen on this study. - There is mild calcification of the aortic valve. - There is mild mitral annular calcification. - Consider evaluation for infiltrative disease like Amyloid. Findings Left Ventricle Normal left ventricular cavity size. There is severely increased left ventricular wall thickness. The left ventricular systolic function is low normal. The calculated ejection fraction is 54% by biplane method. Evidence suggests grade I (mild) diastolic dysfunction. LV peak global longitudinal strain -8.5%. Suggestion of apical sparing. Right Ventricle Normal right ventricular cavity size. There is moderately decreased right ventricular systolic function. Atria Both atria are normal in size. Aortic Valve There is a normal trileaflet aortic valve. There is mild calcification of the aortic valve. There is no aortic valve stenosis. There is no aortic valve regurgitation. Mitral Valve There is mild mitral annular calcification. There is no mitral valve regurgitation. There is no mitral valve stenosis. Pulmonic Valve The pulmonic valve is likely normal. Tricuspid Valve There is mild tricuspid valve regurgitation. There is no evidence of pulmonary hypertension. Great Vessels The asc aorta and aortic arch are normal in size. Venous The inferior vena cava is normal in size and collapses greater than 50% with inspiration. Pericardium/Pleural There is a small loculated pericardial effusion overlying the right ventricle and right atrium. Prior Study Comparison Changes noted compared to prior study dated: 11/21/2022. Progression of LVH. Recommendations, Care & Conclusions No obvious valvular pathology seen on this study. Measurements 2D Linear Measurements IVSd: 1.79 0.6-0.9/0.6-1.0 cm LVIDd: 2.80 3.9-5.3/4.2-5.9 cm LVIDd Index: 1.64 2.4-3.2/2.2-3.1 cm/m2 LVIDs: 1.66 2.0-3.6 cm LVPWd: 1.67 0.7-1.1 cm LA Diam: 2.90 2.7-3.8/3.0-4.0 cm LAIDs Index: 1.70 1.5-2.3 cm/m2 LV Mass: 232.30 67-162/88-224 g LV Mass Index: 135.85 43-95/49-115 g/m2 LVOT Diam: 2.30 3.0+(-)1.3 cm 2D Systolic Function EF 4C: 55.90 >55% EF 2C: 52.10 >55% EF BiP: 53.80 >55% Mitral Valve MV Pk E: 0.54 MV PK A: 0.72 MV Decel Time: 166.00 E/A: 0.80 E'Lateral: 6.09 E'Medial: 5.00 E/E' Med: 10.90 E/E' Lat: 8.90 PHT: 49.00 MVA PHT: 4.49 Decel Prowers: 3.27 Aortic Valve AoV Pk Jesse: 1.06 AoV Mn Jesse: 0.78 AoV VTI: 0.18 AoV Pk Grad: 4.00 Aov Mn Grad: 3.00 CHECO Cont.VTI: 2.67 LVOT LVOT Pk Jesse: 0.72 LVOT Mn Jesse: 0.47 LVOT VTI: 0.12 LVOT Pk Grad: 2.00 LVOT Mn Grad: 1.00 LVOT Diam: 2.30 LVOT Area: 4.15 Diastolic Function MV Pk E: 0.54 MV Pk A: 0.72 E/A: 0.80 E'Medial: 5.00 E/E' Med: 10.90 E' Laterial: 6.09 E/E' Lat: 8.90 Right Ventricle TAPSE (mm): 8.76 TVS' Jesse: 6.30 Tricuspid Valve TR Pk Jesse: 2.21 TR Pk Grad: 20.00 RA Press: 3.00 RVSP: 23.00 Great Vessels Aorta Sinus of Valsalva: 3.60 2.0-3.5 cm Ao Asc: 3.50 2.1-3.4 cm Ao Arch: 3.00 Pulmonary Valve PV Pk Jesse: 0.71 Peak PV Grad: 2.00 Updated in Other Vendor System with Status of Final Mathew Malave MD electronically signed on 11/24/2024 12:00:04 PM with status of Final
[2024-11-24 07:12] LABS: Hematocrit 23.6 % (42.0-52.0); Hemoglobin 7.6 g/dl (14.0-18.0); Mean Corpuscular HGB Conc 32.2 g/dl (31.0-36.0); Mean Corpuscular Hemoglobin 26.9 pg (27.0-33.0); Mean Corpuscular Volume 83.4 fL (80.0-98.0); Mean Platelet Volume 9.7 fL (9.4-12.4); Platelet Count 39 X10*3/uL (160-400); Red Blood Count 2.83 X10*6/uL (4.60-5.80); Red Cell Distribution Width 18.6 % (11.0-16.0); White Blood Count 4.6 X10*3/uL (4.8-10.8)
[2024-11-24 07:41] LABS: Glucose, Whole Blood 79 mg/dL (60-115)
[2024-11-24 07:50] LABS: Alanine Aminotransferase 46 U/L (0-40); Albumin Level 2.3 g/dL (3.5-5.0); Alkaline Phosphatase 156 U/L (39-117); Anion Gap 12 (12-20); Aspartate Amino Transferase 73 U/L (5-37); Bilirubin Total 0.5 mg/dL (0.0-1.0); Blood Urea Nitrogen 43 mg/dL (9-16); Calcium 7.7 mg/dL (8.4-10.2); Carbon Dioxide 29 mmol/L (22-29); Chloride 96 mmol/L (96-108); Creatinine Clr Calc Pharmacy 13.9; Estimated Glomerular Filt Rate 13; Glucose Random 82 mg/dL (60-115); Potassium 4.3 mmol/L (3.3-5.1); Sodium 133 mmol/L (135-145); Total Protein 4.5 g/dL (6.5-8.0)
--- NOTE | 2024-11-24 08:56 | ECG_ITS ---
Test Reason : ABNORMAL EKG Blood Pressure : */* mmHG Vent. Rate : 81 BPM Atrial Rate : 81 BPM P-R Int : 170 ms QRS Dur : 96 ms QT Int : 426 ms P-R-T Axes : 73 -48 192 degrees QTcB Int : 494 ms Normal sinus rhythm Low voltage QRS Left anterior fascicular block ST & T wave abnormality, consider anterolateral ischemia Prolonged QT Abnormal ECG When compared with ECG of 22-Nov-2024 16:38, anterior T inversion less prominent Referred By: Madai Nelson Electronically Signed By: MADAI NELSON
[2024-11-24] MEDS: Lidocaine 4 % Patch ADH..PATCH 2 PATCH TRANSDERMA (10:20)
[2024-11-24] MEDS: Thiamine HCL 100 MG TABLET PO (10:21)
[2024-11-24] MEDS: 0.9 % Sodium Chloride Flush 3 ML SYRINGE IVFLUSH ×3 (10:21→22:25)
[2024-11-24] MEDS: Folic Acid 1 MG TABLET PO (10:21)
[2024-11-24] MEDS: DULoxetine HCl 60 MG CAPSULE.DR PO (10:21)
[2024-11-24] MEDS: Cyanocobalamin (Vitamin B-12) 1,000 MCG TABLET 1000 MCG PO (10:21)
--- NOTE | 2024-11-24 11:08 | PM.PNCARD ---
Subjective Subjective Date of Service: 11/24/24 Interval history: Overall, he states he feels okay. Difficult to assess regarding chest pain extra Z gives variable answers. Review of Systems Review of Systems Yes all other systems are reviewed and are negative Constitutional: Reports as per HPI and Reports no additional constitutional complaints Eyes: Reports as per HPI and Denies no additional eye complaints Denies system reviewed and no additional complaints, except as documented and Reports as per HPI Cardiovascular: Reports as per HPI, Reports no additional cardiovascular complaints, Denies acrocyanosis, Denies cool extremities, Denies chest pain, Denies leg edema, Denies lightheadedness, Denies palpitations and Denies dyspnea Respiratory: Reports as per HPI, Denies no additional respiratory complaints and Denies dyspnea Gastrointestinal: Reports as per HPI and Denies no additional gastrointestinal complaints Genitourinary: Reports no additional male genitourinary complaints and Reports as per HPI Musculoskeletal: Reports no additional musculoskeletal complaints and Reports as per HPI Skin/Breast: Reports system reviewed and no additional complaints, except as docu Reports system reviewed and no additional complaints, except as documented and Reports as per HPI Psychiatric: Reports no additional psychiatric complaints and Reports as per HPI Endocrine: Reports no additional endocrine complaints, Reports as per HPI and Denies palpitations Hematologic/Lymphatic: Reports no additional hematologic/lymphatic complaints and Reports as per HPI Allergic/Immunologic: Reports no additional allergic/immunologic complaints and Reports as per HPI Physical Exam Vital Signs: Last Vital Signs Temp 97.1 F 11/24/24 07:41 Pulse 83 11/24/24 03:15 Resp 20 11/24/24 07:41 BP 102/88 11/24/24 07:41 Pulse Ox 98 11/24/24 07:41 O2 Del Method Room Air 11/24/24 07:41 O2 Flow Rate 2 11/23/24 11:09 BMI result Body Mass Index 20.6 Const General: comfortable and no acute distress Orientation/consciousness: patient oriented x3 HEENT Other: Unremarkable Head: Yes normal to inspection Neck Neck: Yes normal visual inspection Chest Chest palpation & inspection: normal inspection of the chest Resp Auscultation: clear to auscultation bilaterally Cardio Palpation: normal PMI Heart sounds: S1 normal heart sound present, S2 normal heart sound present, no gallops, no murmurs and no rubs GI Palpation (GI): Soft to palpation Back/Spine/Pelvis Other: unremarkable Skin General skin exam: no rashes or lesions noted Neuro General: patient oriented x3 Extrem General: Yes normal to inspection Psych Mental Status: mental status grossly normal Objective Labs and Meds 11/24/24 06:47 11/24/24 06:47 Lab results: Laboratory Results - last 24 hr 11/23/24 11/23/24 11/23/24 08:22 11:11 16:09 WBC RBC Hgb Hct MCV MCH MCHC RDW Plt Count MPV Absolute Nucleated RBC Nucleated RBC % (auto) Sodium Potassium Chloride Carbon Dioxide Anion Gap BUN Creatinine Estim Creat Clear Calc Estimated GFR POC Glucose 234 H 218 H Random Glucose Haptoglobin Calcium Total Bilirubin AST ALT Alkaline Phosphatase Lactate Dehydrogenase Total Protein Albumin Random Cortisol 19.3 Stool Occult Blood Blood Type Antibody Screen Crossmatch 11/23/24 11/23/24 11/23/24 16:57 18:01 19:55 WBC 6.8 RBC 2.92 L Hgb 8.0 L Hct 24.9 L MCV 85.3 MCH 27.4 MCHC 32.1 RDW 18.7 H Plt Count 42 L MPV 11.7 Absolute Nucleated RBC 0.000 Nucleated RBC % (auto) 0.0 Sodium Potassium Chloride Carbon Dioxide Anion Gap BUN Creatinine Estim Creat Clear Calc Estimated GFR POC Glucose 127 H Random Glucose Haptoglobin 26 L Calcium Total Bilirubin AST ALT Alkaline Phosphatase Lactate Dehydrogenase 168 Total Protein Albumin Random Cortisol Stool Occult Blood Blood Type B Positive Antibody Screen NEGATIVE Crossmatch See Detail 11/23/24 11/23/24 11/24/24 23:34 23:59 00:29 WBC RBC Hgb Hct MCV MCH MCHC RDW Plt Count MPV Absolute Nucleated RBC Nucleated RBC % (auto) Sodium Potassium Chloride Carbon Dioxide Anion Gap BUN Creatinine Estim Creat Clear Calc Estimated GFR POC Glucose 55 L* 54 L* 170 H Random Glucose Haptoglobin Calcium Total Bilirubin AST ALT Alkaline Phosphatase Lactate Dehydrogenase Total Protein Albumin Random Cortisol Stool Occult Blood Blood Type Antibody Screen Crossmatch 11/24/24 11/24/24 11/24/24 03:14 03:43 06:47 WBC 4.6 L RBC 2.83 L Hgb 7.6 L Hct 23.6 L MCV 83.4 MCH 26.9 L MCHC 32.2 RDW 18.6 H Plt Count 39 L MPV 9.7 Absolute Nucleated RBC 0.000 Nucleated RBC % (auto) 0.0 Sodium 133 L Potassium 4.3 Chloride 96 Carbon Dioxide 29 Anion Gap 12 BUN 43 H Creatinine 4.63 H* Estim Creat Clear Calc 13.9 Estimated GFR 13 POC Glucose 72 Random Glucose 82 Haptoglobin Calcium 7.7 L D Total Bilirubin 0.5 AST 73 H ALT 46 H Alkaline Phosphatase 156 H Lactate Dehydrogenase Total Protein 4.5 L Albumin 2.3 L Random Cortisol Stool Occult Blood POSITIVE Blood Type Antibody Screen Crossmatch 11/24/24 07:37 WBC RBC Hgb Hct MCV MCH MCHC RDW Plt Count MPV Absolute Nucleated RBC Nucleated RBC % (auto) Sodium Potassium Chloride Carbon Dioxide Anion Gap BUN Creatinine Estim Creat Clear Calc Estimated GFR POC Glucose 79 Random Glucose Haptoglobin Calcium Total Bilirubin AST ALT Alkaline Phosphatase Lactate Dehydrogenase Total Protein Albumin Random Cortisol Stool Occult Blood Blood Type Antibody Screen Crossmatch Progress Note: A&P Assessment and plan (1) Abnormal EKG: Status: Acute (2) Hypoglycemia: Status: Acute (3) ESRD (end stage renal disease) on dialysis: Status: Acute (4) Acute metabolic encephalopathy due to hypoglycemia: Status: Acute Plan Labs reviewed. Troponin levels are 19 and 14. Platelet counts are quite low in the 30s. Abnormal thyroid function. Echocardiogram 2022-LVEF of 45-50%. Restrictive filling. Severe left atrial dilatation. Myocardial perfusion imaging study from 2022 showed normal perfusion. Overall, hyperglycemia, encephalopathy, severe thrombocytopenia, abnormal EKG. EKG findings could reflect LAD territory ischemia. Likely secondary to the above. It could also be stress-induced cardiomyopathy type finding. Echocardiogram reviewed and that shows severe left ventricular hypertrophy. No overt wall motion abnormality. Peak global longitudinal strain is reduced with apical sparing. Possible amyloid. He is active thrombocytopenia and would be high bleeding risk for any procedures like cardiac catheterization. Heparin can also be used for the same reason neither are antiplatelet drugs. Beta-blockers may also be challenging because of hypoglycemia issues. At the current time, continue supportive care. If he is able to follow up in clinic, can consider further workup with cardiac MRI extra. Time Spent With Patient Time: Total time managing care of this patient today ____ minutes. Progress Note: Quality Stroke Does the patient have a stroke diagnosis?: No Procedures Date of Service Date of Service: 11/24/24
[2024-11-24 11:33] LABS: Glucose, Whole Blood 113 mg/dL (60-115)
--- NOTE | 2024-11-24 13:38 | HO.PM.IMPN ---
Subjective Subjective Date of Service: 11/24/24 Interval History: anemia pneumonia Review of Systems hypothermia /hypoglycemia seems improving no active bleeding no new c/o Review of Systems: Yes all other systems are reviewed and are negative Physical Exam Vital Signs: Vital Signs: Last Vital Signs Temp 98.9 F 11/24/24 11:33 Pulse 82 11/24/24 11:33 Resp 20 11/24/24 11:33 BP 115/74 11/24/24 11:33 Pulse Ox 100 11/24/24 11:33 O2 Del Method Room Air 11/24/24 07:41 O2 Flow Rate 2 11/23/24 11:09 BMI result Body Mass Index 20.6 Appearance: Alert.? Oriented somewhat improving. cvs: rrr, [id number] . res: air entry fair somewhat diminshed. abd: soft ,nt, bs present. ext pulses present , no cyanosis, has some arms edema/face edema says some neck pain and arm soarness neuro: move all ext Objective Data Active Medications Acetaminophen (Acetaminophen 325 Mg Tablet) 650 mg PO Q6H PRN PRN Reason: Fever Or Pain Calcium Carbonate (Calcium Carbonate 750 Mg Tab.Chew) 750 mg PO Q4H PRN PRN Reason: Heartburn Cyanocobalamin (Cyanocobalamin (Vitamin B-12) 1,000 Mcg Tablet) 1,000 mcg PO DAILY [facility] Last Admin: 11/24/24 10:21 Dose: 1,000 mcg Documented By: YUMI Dextrose (Dextrose 50 % 25 Gm/50 Ml Syringe) 25 gm IVPUSH Q15M PRN; Protocol PRN Reason: per Hypoglycemia Standing Ord. Last Admin: 11/24/24 00:07 Dose: 25 gm Documented By: JEAN Dextrose (Dextrose 50 % 25 Gm/50 Ml Syringe) 25 gm IVPUSH Q15M PRN; Protocol PRN Reason: per Hypoglycemia Standing Ord. Duloxetine HCl (Duloxetine Hcl 60 Mg Chandrakant.) 60 mg PO DAILY [facility] Last Admin: 11/24/24 10:21 Dose: 60 mg Documented By: YUMI Epinephrine (Epinephrine 1 Mg/Ml Vial) 0.3 mg IM Q5M PRN PRN Reason: Anaphylaxis Ergocalciferol (Ergocalciferol (Vitamin D2) 1,250 Mcg Capsule) 1,250 mcg PO WE@0900 [facility] Folic Acid (Folic Acid 1 Mg Tablet) 1 mg PO DAILY [facility] Last Admin: 11/24/24 10:21 Dose: 1 mg Documented By: YUMI Glucagon (Glucagon Hcl 1 Mg Vial) 1 mg IM Q15M PRN PRN Reason: low BS Glucose (Glucose Gel 15 Gm Gel..Gram.) 15 gm PO Q15M PRN; Protocol PRN Reason: per Hypoglycemia Standing Ord. Last Admin: 11/23/24 23:38 Dose: 15 gm Documented By: JEAN Glucose (Glucose Gel 15 Gm Gel..Gram.) 15 gm PO Q15M PRN; Protocol PRN Reason: per Hypoglycemia Standing Ord. Vancomycin HCl 500 mg/ Sodium (Chloride) 110 mls @ 110 mls/hr IV TuThSa@1800 [facility] Piperacillin Sod/Tazobactam (Sod 2.25 gm/ Sodium Chloride) 50 mls @ 100 mls/hr IV Q8H [facility] Last Infusion: 11/24/24 11:56 Dose: Infused Documented By: YUMI Insulin Human Lispro (Insulin Lispro 100 Unit/Ml 3 Ml Vial) 0 unit SUBCUT QIDACHS [facility]; Protocol Last Admin: 11/24/24 11:55 Dose: Not Given Documented By: YUMI Non-Admin Reason: No Insulin Coverage Comments: POC 113 Levothyroxine Sodium (Levothyroxine Sodium 25 Mcg Tablet) 25 mcg PO DAILY@0600 [facility] Last Admin: 11/24/24 06:13 Dose: 25 mcg Documented By: JEAN Lidocaine (Lidocaine 4 % Patch Adh..Patch) 2 patch TRANSDERMA DAILY [facility]; Protocol Last Admin: 11/24/24 10:20 Dose: 2 patch Documented By: YUMI Magnesium Hydroxide (Milk Of Magnesia 30 Ml Oral.Susp) 30 ml PO DAILY PRN PRN Reason: Constipation Melatonin (Melatonin 3 Mg Tablet) 6 mg PO BEDTIME [facility] Last Admin: 11/23/24 20:17 Dose: 6 mg Documented By: JEAN Mirtazapine (Mirtazapine 15 Mg Tablet) 15 mg PO BEDTIME [facility] Last Admin: 11/23/24 20:17 Dose: 15 mg Documented By: JEAN Naloxone HCl (Naloxone Hcl 0.4 Mg/Ml Vial) 0.4 mg SUBCUT Q2M PRN PRN Reason: Anaphylaxis Naloxone HCl (Naloxone Hcl Nasal 4 Mg Guinda) 4 mg NOSTRILALT Q2M PRN PRN Reason: overdose Oxycodone HCl (Oxycodone Hcl Immed Release 5 Mg Tablet) 5 mg PO Q6H PRN PRN Reason: Pain (Scale Score 4-6) Last Admin: 11/24/24 10:26 Dose: 5 mg Documented By: YUMI Pantoprazole Sodium (Pantoprazole Sodium 40 Mg/10 Ml Vial) 40 mg IVPUSH BID@0630,1630 [facility] Last Admin: 11/24/24 06:13 Dose: 40 mg Documented By: JEAN Pharmacy Consult (Consult Rx Vancomycin Dosing) 1 each MISCELLANE DAILY PRN PRN Reason: Consult order Sodium Chloride (0.9 % Sodium Chloride Flush 3 Ml Syringe) 3 ml IVFLUSH QSHIFT [facility] Last Admin: 11/24/24 10:21 Dose: 3 ml Documented By: YUMI Tamsulosin HCl (Tamsulosin Hcl 0.4 Mg Capsule) 0.4 mg PO BEDTIME [facility] Last Admin: 11/23/24 20:17 Dose: 0.4 mg Documented By: JEAN Thiamine HCl (Thiamine Hcl 100 Mg Tablet) 100 mg PO DAILY [facility] Last Admin: 11/24/24 10:21 Dose: 100 mg Documented By: YUMI Labs 11/24/24 06:47 11/24/24 06:47 Labs: Laboratory Results - last 24 hr 11/23/24 11/23/24 11/23/24 08:22 16:09 16:57 MCV MCH MCHC RDW Plt Count MPV Absolute Nucleated RBC Nucleated RBC % (auto) Anion Gap Estim Creat Clear Calc Estimated GFR POC Glucose 218 H Random Glucose Haptoglobin Calcium Total Bilirubin AST ALT Alkaline Phosphatase Lactate Dehydrogenase Total Protein Albumin Random Cortisol 19.3 Stool Occult Blood Blood Type B Positive Antibody Screen NEGATIVE Crossmatch See Detail 11/23/24 11/23/24 11/23/24 18:01 19:55 23:34 MCV 85.3 MCH 27.4 MCHC 32.1 RDW 18.7 H Plt Count 42 L MPV 11.7 Absolute Nucleated RBC 0.000 Nucleated RBC % (auto) 0.0 Anion Gap Estim Creat Clear Calc Estimated GFR POC Glucose 127 H 55 L* Random Glucose Haptoglobin 26 L Calcium Total Bilirubin AST ALT Alkaline Phosphatase Lactate Dehydrogenase 168 Total Protein Albumin Random Cortisol Stool Occult Blood Blood Type Antibody Screen Crossmatch 11/23/24 11/24/24 11/24/24 23:59 00:29 03:14 MCV MCH MCHC RDW Plt Count MPV Absolute Nucleated RBC Nucleated RBC % (auto) Anion Gap Estim Creat Clear Calc Estimated GFR POC Glucose 54 L* 170 H Random Glucose Haptoglobin Calcium Total Bilirubin AST ALT Alkaline Phosphatase Lactate Dehydrogenase Total Protein Albumin Random Cortisol Stool Occult Blood POSITIVE Blood Type Antibody Screen Crossmatch 11/24/24 11/24/24 11/24/24 03:43 06:47 07:37 MCV 83.4 MCH 26.9 L MCHC 32.2 RDW 18.6 H Plt Count 39 L MPV 9.7 Absolute Nucleated RBC 0.000 Nucleated RBC % (auto) 0.0 Anion Gap 12 Estim Creat Clear Calc 13.9 Estimated GFR 13 POC Glucose 72 79 Random Glucose 82 Haptoglobin Calcium 7.7 L D Total Bilirubin 0.5 AST 73 H ALT 46 H Alkaline Phosphatase 156 H Lactate Dehydrogenase Total Protein 4.5 L Albumin 2.3 L Random Cortisol Stool Occult Blood Blood Type Antibody Screen Crossmatch 11/24/24 11:28 MCV MCH MCHC RDW Plt Count MPV Absolute Nucleated RBC Nucleated RBC % (auto) Anion Gap Estim Creat Clear Calc Estimated GFR POC Glucose 113 Random Glucose Haptoglobin Calcium Total Bilirubin AST ALT Alkaline Phosphatase Lactate Dehydrogenase Total Protein Albumin Random Cortisol Stool Occult Blood Blood Type Antibody Screen Crossmatch Microbiology Microbiology Results: Microbiology 11/22/24 10:04 Blood Culture - Preliminary Blood - Venous No growth after 48 hours. 11/22/24 10:04 Blood Culture - Preliminary Blood - Venous No growth after 48 hours. Assessment and Plan (1) Thrombocytopenia: Status: Acute (2) Aspiration pneumonia: Status: Acute (3) Abnormal EKG: Status: Acute (4) Hypothermia: Status: Acute (5) Acute metabolic encephalopathy due to hypoglycemia: Status: Acute Plan 64-year-old male with a PMH significant for?ESRD on HD T//Sat, type I brittle diabetes, NSTEMI 11/2022, HLD, COPD, BPH, CHF, seizure disorder, anemia of chronic disease, chronic thrombocytopenia, hepatitis C, unspecified dementia, mood disorder, among others who presents to the ED from [facility] for evaluation of increased confusion and lethargy. Pt is admitted to the hospital for hypoglycemia, hypothermia, and acute metabolic encephalopathy in the setting of likely aspiration pneumonia. Acute metabolic encephalopathy in the setting of likely aspiration pneumonia CT of chest with suspicion of pneumonia-Likely in the setting of continued aspiration Treated for likely aspiration x2 last month at [facility], currently on Augmentin x4 weeks, set to stop of 12/04 no sepsis currently, hypothermia improved. blood cultures@48 hrs continue vanc and Zosyn, started 11/22/2024 Monitor mentation improving Id eval Hypoglycemia-? type I brittle diabetes fs flactuating po inatke improivng moniter fs with adjuted coverage(avoid coverage below 200). Hypothyroidism TSH 14.89, elevated from 6.51 at [facility] on 11/04/2024 Free T4 undetectable d/w endocrinology dr mariano -normal radom cortisol levels . added po levothyroxine,no need for steriods. Hypothermia-Likely multifactorial: in the setting of hypoglycemia, hypothyroidsim improving Has had multiple presentations with hypothermia, including here in 11/2022 and two weeks ago at [facility] on 10/24/2024 Continue Alie Hugger as needed. pancytopenia ?unclear (chronic): possible multifactorial (nutritional ,esrd, pneumonia ,dilution sec to fluid) ch low platelets in 50-100 range perpherial smear reviewed as well as coagulation studies ,fibrinogen and seen byhematology/oncology:Worsening thrombocytopenia is likely related to pneumonia, poor nutrition, antibiotic use and underlying liver disease/hepatitis-C. Acute worsening of anemia is also secondary to all of the above including end-stage renal disease. He has been on Procrit/LIN therapy with dialysis. He should be continued on this. h/h 7.6/23.6 today also in addition has low haptoglobin levels and normal ldh added hemant test transfuse 1 prbc with hd. EKG changes EKG showing significant new t-wave depressions in anteriolateral leads Pt not complaining of chest pain, trop negative Echocardiogram 2022-LVEF of 45-50%. Restrictive filling. Severe left atrial dilatation. Myocardial perfusion imaging study from 2022 showed normal perfusion. patient has significant thrombocytopenia plan: cardiology eval noted-Overall, hyperglycemia, encephalopathy, severe thrombocytopenia, abnormal EKG. EKG findings could reflect LAD territory ischemia. Likely second-degree to the above. It could also be stress-induced cardiomyopathy type finding. In the current situation, he is really not suitable for invasive procedures like cardiac catheterization. Mainly treat the primary issues. Because of severe thrombocytopenia, there is high bleeding risk with IV heparin drip and hence do not use for now. Not suitable for antiplatelet drugs either. due to flactuating hypo/hyperglycemia -bb will be challenging Echocardiogram :The left ventricular systolic function is low normal. The calculated ejection fraction is 54% by biplane method.There is severely increased left ventricular wall thickness.No obvious valvular pathology seen on this study.There is mild calcification of the aortic valve. There is mild mitral annular calcification. Consider evaluation for infiltrative disease like Amyloid. cardiology following Back pain: Pt with similar complaints at [facility] MRI of lumbar spine on 11/03 without evidence of infection but showed diffusely abnormal marrow signal consistent with known chronic anemia and renal osteodystrophy. Also showed lobulated lesions throughout thoracic and lumbar spine though unlikely to be metastatic disease haem/onc eval Transaminitis Hx of hep c, unclear if treated LFTs WNL at [facility] 2 weeks prior Check hepatitis panel-hx of hepaitis C -has eia positive ,will order viral load for morning. Follow labs Hypoalbuminemia/moderate to severe protein calorie malnutrtion given iv albumin Nutrition consultation Glucerna supplementation Goals of care Pt with failure to thrive, poor p.o. intake, multiple recent hospitalizations for encephalopathy, hypothermia, and aspiration pneumonia Has refused NG tube and PEG tube placement -[facility] had multiple conversations with daughter about goals of care and possible hospice. Daughter continues to wish pt to be Full Code at this time. 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 Follow BMP HLD Continue statin Mood disorder Continue home meds BPH Continue tamsulosin Full Code. DVT Prophylaxis: Pneumatic compression due to thrombocytopenia ongoing hospitalization for treatment of?multiple issues including hypothermia, hypoglycemia, and acute metabolic encephalopathy , pneumonia ,anemia -in the setting of likely recurrent aspiration pneumonia requiring IV antibiotics, pancytopenia workup Quality Stroke Does the patient have a stroke diagnosis?: No VTE Prior VTE?: No VTE Risk Level:: Medical - moderate - high VTE Device Contraindication: N/A - Device Ordered VTE Drug Contraindication: Treatment Not Indicated
--- NOTE | 2024-11-24 15:54 | PM.HEMONCPN ---
Medical Summary - Medical Summary Date of Service: 11/24/24 Chief complaint: None at this time Primary Care Provider: JULIOCESAR SCHWARTZ Squirrel Worker Utilized?: No - Indonesian Speaking Interval History Interval history: Ignacio Drake is a 64 year old male with PMH significant for?ESRD on HD T//Sat, type I brittle diabetes, NSTEMI 11/2022, HLD, COPD, BPH, CHF, seizure disorder, anemia of chronic disease, chronic thrombocytopenia, hepatitis C, unspecified dementia, mood disorder, among others who presents to the ED from [facility] for evaluation of increased confusion and lethargy. Per staff pt was in his normal state of health this morning but became limp and unresponsive when transferred to his wheelchair. Normally AOx3 and uses wheelchair at baseline. Pt was recently admitted to [facility] on 10/26-10/31 for failure to thrive, dehydration, and encephlopathy thought secondary to multifocal pneumonia. Was discharged to [facility] and represented 3 days later on 11/03 with recurrent lethargy and encephalopathy. Was admitted again for multifocal peumonia, aspiration pneumonia, and cavitary lesions. TB ruled out with negative AFB sputum cultures x3. Pt had low p.o. intake but refused NG or G-tube. Was discharged back to [facility] on Augmentin x4 weeks, set to end on 12/04. In labs were significant for multiple episodes of hypoglycemia with POC of 36, 49, 43, and 47. Lactic acid 2.2 with repeat 1.8. AST 85, ALT 62, alk-phos 198. BNP 3651. Thrombocytopenia of 60. Leukopenia 4.2 (chronically low). Stable H&H 9.9/31.5 (around baseline). Chronic hyponatremia of 134. Tested negative for flu, COVID, RSV. VBG with pH 7.53, pCO2 40, and bicarb 34. CXR showed peripheral left basilar or ovoid 3.8 cm masslike opacity, possibly with representing soft tissue summation or external. CT?of head without acute intracranial findings. X-ray of hips and pelvis without acute findings. Abdominal ultrasound found coarsened hepatic echotexture without focal mass or biliary obstruction. Also showed right pleural effusion and small amount of ascites. CT of chest found bibasilar atelectasis vs pneumonia with small bilateral pleural effusions and suspicious left lower lobe nodule. Patient is a poor historian. He is not sure if he received treatment for hepatitis-C. He denies any bruising or bleeding. Review of Systems - Neurologic Reports no additional neurologic complaints, Reports as per [facility] Medical History: Medical History (Last Reviewed 11/24/24 @ 22:46 by Paulette Lyman MD) Anemia Atrial fibrillation Bacteremia Benign prostate hyperplasia Cellulitis Constipation COPD (chronic obstructive pulmonary disease) Dementia Diabetes mellitus type 1 Dysphagia End stage renal disease on dialysis ESRD (end stage renal disease) on dialysis Gastrointestinal hemorrhage Hepatitis C Hyperkalemia Hyperlipemia Hypernatremia Hyperparathyroidism Hypertension Hypertensive cardiopathy Major depressive disorder Nicotine dependence Osteoarthritis Peripheral vascular disease Sepsis Septic shock Streptococcal sepsis, unspecified Systolic CHF Urine retention Vitamin D deficiency Social History: Social History (Last Reviewed 11/24/24 @ 22:47 by Paulette Lyman MD) Living Situation History: Household Members: Other Household Members Other:: [facility] Housing: [facility] Do you presently have visiting nurse or other home services: Do you presently have visiting nurse or other home services comment: [facility] Alcohol History: Unable to assess alcohol history related to: Unable to respond Tobacco History: Patient Tobacco Use Status: Current everyday Tobacco Tobacco use type: Cigarette Second Hand Smoke Exposure: No Advance Directives: Advance Directives Date on File: 06/22/22 Occupation Assessmet: service: No Current occupational status: disabled Home Medications and Allergies Current Medications: Current Medications Acetaminophen (Acetaminophen 325 Mg Tablet) 650 mg PO Q6H PRN PRN Reason: Fever Or Pain Calcium Carbonate (Calcium Carbonate 750 Mg Tab.Chew) 750 mg PO Q4H PRN PRN Reason: Heartburn Cyanocobalamin (Cyanocobalamin (Vitamin B-12) 1,000 Mcg Tablet) 1,000 mcg PO DAILY [facility] Last Admin: 11/24/24 10:21 Dose: 1,000 mcg Dextrose (Dextrose 50 % 25 Gm/50 Ml Syringe) 25 gm IVPUSH Q15M PRN; Protocol PRN Reason: per Hypoglycemia Standing Ord. Last Admin: 11/24/24 00:07 Dose: 25 gm Dextrose (Dextrose 50 % 25 Gm/50 Ml Syringe) 25 gm IVPUSH Q15M PRN; Protocol PRN Reason: per Hypoglycemia Standing Ord. Duloxetine HCl (Duloxetine Hcl 60 Mg Capsule.Dr) 60 mg PO DAILY [facility] Last Admin: 11/24/24 10:21 Dose: 60 mg Epinephrine (Epinephrine 1 Mg/Ml Vial) 0.3 mg IM Q5M PRN PRN Reason: Anaphylaxis Ergocalciferol (Ergocalciferol (Vitamin D2) 1,250 Mcg Capsule) 1,250 mcg PO WE@0900 [facility] Folic Acid (Folic Acid 1 Mg Tablet) 1 mg PO DAILY [facility] Last Admin: 11/24/24 10:21 Dose: 1 mg Glucagon (Glucagon Hcl 1 Mg Vial) 1 mg IM Q15M PRN PRN Reason: low BS Glucose (Glucose Gel 15 Gm Gel..Gram.) 15 gm PO Q15M PRN; Protocol PRN Reason: per Hypoglycemia Standing Ord. Last Admin: 11/23/24 23:38 Dose: 15 gm Glucose (Glucose Gel 15 Gm Gel..Gram.) 15 gm PO Q15M PRN; Protocol PRN Reason: per Hypoglycemia Standing Ord. Vancomycin HCl 500 mg/ Sodium (Chloride) 110 mls @ 110 mls/hr IV TuThSa@1800 [facility] Piperacillin Sod/Tazobactam (Sod 2.25 gm/ Sodium Chloride) 50 mls @ 100 mls/hr IV Q8H [facility] Last Infusion: 11/24/24 11:56 Dose: Infused Insulin Human Lispro (Insulin Lispro 100 Unit/Ml 3 Ml Vial) 0 unit SUBCUT QIDACHS [facility]; Protocol Last Admin: 11/24/24 11:55 Dose: Not Given Levothyroxine Sodium (Levothyroxine Sodium 25 Mcg Tablet) 25 mcg PO DAILY@0600 [facility] Last Admin: 11/24/24 06:13 Dose: 25 mcg Lidocaine (Lidocaine 4 % Patch Adh..Patch) 2 patch TRANSDERMA DAILY [facility]; Protocol Last Admin: 11/24/24 10:20 Dose: 2 patch Magnesium Hydroxide (Milk Of Magnesia 30 Ml Oral.Susp) 30 ml PO DAILY PRN PRN Reason: Constipation Melatonin (Melatonin 3 Mg Tablet) 6 mg PO BEDTIME [facility] Last Admin: 11/23/24 20:17 Dose: 6 mg Mirtazapine (Mirtazapine 15 Mg Tablet) 15 mg PO BEDTIME [facility] Last Admin: 11/23/24 20:17 Dose: 15 mg Naloxone HCl (Naloxone Hcl 0.4 Mg/Ml Vial) 0.4 mg SUBCUT Q2M PRN PRN Reason: Anaphylaxis Naloxone HCl (Naloxone Hcl Nasal 4 Mg [place]) 4 mg NOSTRILALT Q2M PRN PRN Reason: overdose Oxycodone HCl (Oxycodone Hcl Immed Release 5 Mg Tablet) 5 mg PO Q6H PRN PRN Reason: Pain (Scale Score 4-6) Last Admin: 11/24/24 10:26 Dose: 5 mg Pantoprazole Sodium (Pantoprazole Sodium 40 Mg/10 Ml Vial) 40 mg IVPUSH BID@0630,1630 [facility] Last Admin: 11/24/24 06:13 Dose: 40 mg Pharmacy Consult (Consult Rx Vancomycin Dosing) 1 each MISCELLANE DAILY PRN PRN Reason: Consult order Sodium Chloride (0.9 % Sodium Chloride Flush 3 Ml Syringe) 3 ml IVFLUSH QSHIFT [facility] Last Admin: 11/24/24 10:21 Dose: 3 ml Tamsulosin HCl (Tamsulosin Hcl 0.4 Mg Capsule) 0.4 mg PO BEDTIME [facility] Last Admin: 11/23/24 20:17 Dose: 0.4 mg Thiamine HCl (Thiamine Hcl 100 Mg Tablet) 100 mg PO DAILY [facility] Last Admin: 11/24/24 10:21 Dose: 100 mg Home Medications ?Medication ?Instructions ?Recorded ?Confirmed ?Type duloxetine 60 mg capsule,delayed 1 cap PO DAILY 06/17/22 11/22/24 History release insulin lispro 100 unit/mL See Protocol subcut TIDAC 06/17/22 11/22/24 History subcutaneous solution (Humalog U-100 Insulin) mirtazapine 15 mg tablet 1 tab PO BEDTIME 06/17/22 11/22/24 History tamsulosin 0.4 mg capsule 1 cap PO BEDTIME 06/17/22 11/22/24 History acetaminophen 325 mg tablet 650 mg PO Q6H PRN Fever Or Pain 11/20/22 11/22/24 History acetaminophen 650 mg rectal [address] Q6H PRN Fever Or Pain 11/20/22 11/22/24 History suppository insulin glargine 100 unit/mL (3 1 unit subcut BEDTIME 11/20/22 11/22/24 History mL) subcutaneous pen (Lantus Solostar U-100 Insulin) melatonin 5 mg tablet 5 mg PO BEDTIME Sleep 11/20/22 11/22/24 History oxycodone 5 mg tablet 5 mg PO Q6H PRN Pain (Scale Score 11/20/22 11/22/24 History 4-6) amoxicillin 500 mg-potassium 1 tab PO BEDTIME 11/22/24 11/22/24 History clavulanate 125 mg tablet (Augmentin) atorvastatin 40 mg tablet 40 mg PO BEDTIME 11/22/24 11/22/24 History cholecalciferol (vitamin D3) 1,250 1,250 mcg PO QMONTH 11/22/24 11/22/24 History mcg (50,000 unit) capsule cyanocobalamin (vitamin B-12) 1,000 mcg PO DAILY 11/22/24 11/22/24 History 1,000 mcg tablet epinephrine 0.3 mg/0.3 mL 0.3 mg IM Q5M PRN Anaphylaxis 11/22/24 11/22/24 History injection, auto-injector (EpiPen) ergocalciferol (vitamin D2) 1,250 1,250 mcg PO WE@0900 11/22/24 11/22/24 History mcg (50,000 unit) capsule folic acid 1 mg tablet 1 mg PO DAILY 11/22/24 11/22/24 History glucagon 1 mg/0.2 mL subcutaneous 1 mg subcut Q15M PRN low BS 11/22/24 11/22/24 History solution (Gvoke) naloxone 0.4 mg/mL injection 0.4 mg subcut Q2M PRN Anaphylaxis 11/22/24 11/22/24 History solution naloxone 4 mg/actuation nasal spray 4 mg intranasal Q2M PRN overdose 11/22/24 11/22/24 History thiamine HCl (vitamin B1) 100 mg 100 mg PO DAILY 11/22/24 11/22/24 History tablet Allergies Allergy/AdvReac Type Severity Reaction Status Date / Time No Known Allergies Allergy Verified 11/22/24 10:28 Exam Vital signs: Vital Signs Temp 98.9 F 11/24/24 11:33 Pulse 82 11/24/24 11:33 Resp 20 11/24/24 11:33 BP 115/74 11/24/24 11:33 Pulse Ox 100 11/24/24 11:33 O2 Del Method Room Air 11/24/24 07:41 O2 Flow Rate 2 11/23/24 11:09 Intake & Output 11/23/24 11/24/24 11/24/24 18:59 06:59 18:59 Intake Total 1428.333 / 1478.333 50 / 1478.333 290.000 / 290.000 Balance 1428.333 / 1478.333 50 / 1478.333 290.000 / 290.000 Intake: Intake, Oral Amount 440 / 440 240 / 240 Intake, IV Amount 988.333 / 1038.333 50 / 1038.333 50.000 / 50.000 Albumin Human 25 % 100 ml @ 100 100 / 100 mls/hr IV Q6H [facility] Rx#: [id number] Piperacillin Sodium/Tazobactam 100 / 150 50 / 150 50.000 / 50.000 2.25 gm In 0.9 % Sodium Chloride 50 ml @ 100 mls/hr IV Q8H [facility] Rx#:[id number] Lactated Ringers 1,000 ml @ 100 788.333 / 788.333 mls/hr IVCONT .Q10H [facility] Rx#: [id number] Other: Lunch % Eaten 50% Eating (Feeding) Ability Set Up only Number of Unmeasured Voids 0 Last Bowel Movement 11/21/24 11/24/24 11/24/24 Stool Incontinent Stool Amount Moderate Stool Color Brown Stool Consistency Liquid Weight 59.6 kg [place] Weight in Grams 52973 Weight 59.6 kg BMI result Body Mass Index 20.6 - Constitutional Present: no acute distress - Routine HEENT Exam Head: Present: normal inspection - Routine Respiratory Exam Absent: accessory muscle use - Routine Cardiovascular Exam Cardiovascular: Present: S1, S2 - Routine Abdominal Exam Absent: mass - Routine Extremities Exam Present: pulses intact Data - Labs CBC & Chem 7: 11/25/24 08:04 11/25/24 08:04 Labs: Laboratory Last Values WBC 4.6 X10*3/uL (4.8-10.8) L 11/24/24 06:47 RBC 2.83 X10*6/uL (4.60-5.80) L 11/24/24 06:47 Hgb 7.6 g/dl (14.0-18.0) L 11/24/24 06:47 Hct 23.6 % (42.0-52.0) L 11/24/24 06:47 MCV 83.4 fL (80.0-98.0) 11/24/24 06:47 MCH 26.9 pg (27.0-33.0) L 11/24/24 06:47 MCHC 32.2 g/dl (31.0-36.0) 11/24/24 06:47 RDW 18.6 % (11.0-16.0) H 11/24/24 06:47 Plt Count 39 X10*3/uL (160-400) L 11/24/24 06:47 MPV 9.7 fL (9.4-12.4) 11/24/24 06:47 Immature Gran % (Auto) 0.2 % (0.0-0.4) 11/22/24 10:05 Neut % (Auto) 53.7 % (45-73) 11/22/24 10:05 Lymph % (Auto) 38.2 % (20-40) 11/22/24 10:05 [place] % (Auto) 5.9 % (2-11) 11/22/24 10:05 Eos % (Auto) 1.0 % (0-4) 11/22/24 10:05 Baso % (Auto) 1.0 % (0-2) 11/22/24 10:05 Lymph # (Auto) 1.6 X10*3/uL (1.2-4.9) 11/22/24 10:05 [place] # (Auto) 0.3 X10*3/uL (0.1-1.2) 11/22/24 10:05 Eos # (Auto) 0.0 X10*3/uL (0.0-0.4) 11/22/24 10:05 Baso # (Auto) 0.0 X10*3/uL (0.0-0.2) 11/22/24 10:05 Abs Immat Gran (auto) 0.01 X10*3/uL (0.00-0.03) 11/22/24 10:05 Absolute Neuts (auto) 2.3 x10*3/uL (2.0-8.3) 11/22/24 10:05 Absolute Nucleated RBC 0.000 X10*3/uL (0.0-0.012) 11/24/24 06:47 Nucleated RBC % (auto) 0.0 /100WBC (0.0-0.2) 11/24/24 06:47 Neutrophils % (Manual) 80 % (45-73) H 11/23/24 04:33 Band Neutrophils % 3 % (3-5) 11/23/24 04:33 Lymphocytes % (Manual) 13 % (20-40) L 11/23/24 04:33 Monocytes % (Manual) 2 % (2-11) 11/23/24 04:33 Eosinophils % (Manual) 1 % (0-4) 11/23/24 04:33 Basophils % (Manual) 1 % (0-2) 11/23/24 04:33 Abs Neuts (Manual) 4.8 X10*3/uL (2.0-8.3) 11/23/24 04:33 Lymphocytes # (Manual) 0.8 X10*3/uL (1.2-4.9) L 11/23/24 04:33 Monocytes # (Manual) 0.1 X10*3/uL (0.1-1.2) 11/23/24 04:33 Eosinophils # (Manual) 0.1 X10*3/uL (0.0-0.4) 11/23/24 04:33 Basophils # (Manual) 0.1 X10*3/uL (0.0-0.2) 11/23/24 04:33 Smudge Cells PRESENT 11/23/24 04:33 Platelet Estimate DECREASED (NORMAL) 11/23/24 04:33 Plt Morphology Comment NORMAL 11/23/24 04:33 RBC Morphology NOTED 11/23/24 04:33 Hypochromasia 1+ (5-14) /OIF 11/23/24 04:33 Ovalocytes 1+ (5-14) /OIF 11/23/24 04:33 [place] Cells 2+ (3-5) /OIF 11/23/24 04:33 Acanthocytes (Spur) 2+ (3-5) /OIF 11/23/24 04:33 PT 13.5 SEC (10.9-12.4) H 11/23/24 08:22 PT Cancelled 11/23/24 08:22 INR 1.2 (0.9-1.1) H 11/23/24 08:22 INR Cancelled 11/23/24 08:22 APTT 42.0 SEC (26.0-36.8) H 11/23/24 08:22 APTT Cancelled 11/23/24 08:22 Fibrinogen 183 MG/DL (259-690) L 11/23/24 08:22 VBG pH 7.53 (7.32-7.43) H 11/22/24 10:10 VBG pCO2 40 mmHg 11/22/24 10:10 VBG pO2 45 mmHg 11/22/24 10:10 VBG HCO3 34 mmol/L (22-26) H 11/22/24 10:10 VBG O2 Saturation 75.0 % 11/22/24 10:10 VBG Base Excess 11.0 mmol/L 11/22/24 10:10 Sodium 133 mmol/L (135-145) L 11/24/24 06:47 Potassium 4.3 mmol/L (3.3-5.1) 11/24/24 06:47 Chloride 96 mmol/L (96-108) 11/24/24 06:47 Carbon Dioxide 29 mmol/L (22-29) 11/24/24 06:47 Anion Gap 12 (12-20) 11/24/24 06:47 BUN 43 mg/dL (9-16) H 11/24/24 06:47 Creatinine 4.63 mg/dL (0.5-1.4) H* 11/24/24 06:47 Estim Creat Clear Calc 13.9 11/24/24 06:47 Estimated GFR 13 11/24/24 06:47 POC Glucose 113 mg/dL (60-115) 11/24/24 11:28 Random Glucose 82 mg/dL (60-115) 11/24/24 06:47 Haptoglobin 26 mg/dL (40-268) L 11/23/24 18:01 Lactic Acid 2.2 mmol/L (0.5-2.0) H* 11/22/24 10:04 Lactic Acid F/U @ 2Hr 1.8 mmol/L (0.5-2.0) 11/22/24 12:59 Calcium 7.7 mg/dL (8.4-10.2) L D 11/24/24 06:47 Phosphorus 4.0 mg/dL (2.7-4.5) 11/22/24 10:04 Magnesium 2.2 mg/dL (1.6-2.6) 11/22/24 10:04 Iron 49 mcg/dL (45-160) 11/23/24 08:22 TIBC 74 mcg/dL (228-428) L 11/23/24 08:22 % Saturation 66 % (15-50) H 11/23/24 08:22 Unsat Iron Binding < 25 ug/dL 11/23/24 08:22 Ferritin 4133 ng/mL (20-250) H 11/23/24 08:22 Total Bilirubin 0.5 mg/dL (0.0-1.0) 11/24/24 06:47 Direct Bilirubin 0.2 mg/dL (0.0-0.5) 11/22/24 10:04 AST 73 U/L (5-37) H 11/24/24 06:47 ALT 46 U/L (0-40) H 11/24/24 06:47 Alkaline Phosphatase 156 U/L (39-117) H 11/24/24 06:47 Ammonia 31 umol/L (13-55) 11/22/24 10:04 Lactate Dehydrogenase 168 U/L (118-273) 11/23/24 18:01 Troponin I High Sens 14.3 ng/L (<3.5-35.0) 11/22/24 18:11 B-Natriuretic Peptide 3651 pg/mL (<100) H 11/22/24 10:04 Total Protein 4.5 g/dL (6.5-8.0) L 11/24/24 06:47 Albumin 2.3 g/dL (3.5-5.0) L 11/24/24 06:47 Lipase 14 U/L (8-78) 11/22/24 10:04 Vitamin B12 > 2000 pg/mL (200-900) H 11/23/24 08:22 Folate 12.2 ng/mL (> or = 4.0) 11/23/24 08:22 TSH 14.89 uIU/mL (0.32-4.0) H 11/22/24 10:04 Thyroxine (T4) < 3.0 ug/dL (4.5-12.0) L 11/22/24 10:04 Random Cortisol 19.3 ug/dL 11/23/24 08:22 Stool Occult Blood POSITIVE (NEGATIVE) 11/24/24 03:14 Hepatitis A IgM Ab Nonreactive (Nonreactive) 11/23/24 04:33 Hep Bs Antigen Negative (Negative) 11/23/24 04:33 Hep Bs Antibody REACTIVE (Nonreactive) 11/23/24 04:33 Hep B Core Total Ab Reactive (Nonreactive) 11/23/24 04:33 Hep B Core IgM Ab Cancelled 11/23/24 04:33 Hepatitis C Ab (EIA) Reactive (Nonreactive) H 11/23/24 04:33 Influenza Type A (PCR) NEGATIVE (Negative) 11/22/24 10:26 Influenza Type B (PCR) NEGATIVE (Negative) 11/22/24 10:26 RSV RNA Qual (PCR) NEGATIVE (Negative) 11/22/24 10:26 SARS-CoV-2 RNA (RT-PCR) NEGATIVE (Negative) 11/22/24 10:26 Blood Type B Positive 11/23/24 16:57 Antibody Screen NEGATIVE 11/23/24 16:57 SRUTHI, Polyspecific POSITIVE A 11/23/24 16:57 Positive SRUTHI Work-up IgG=Pos [id number] A 11/23/24 16:57 Crossmatch See Detail 11/23/24 16:57 Assessment and Plan Patient Active problem list reviewed?: Yes (1) Thrombocytopenia Status: Acute Assessment and plan: 1. This is a 64-year-old male with multiple medical problems including end-stage renal disease, history of hepatitis-C, chronic pancytopenia presenting with acute metabolic encephalopathy secondary to aspiration pneumonia. He is receiving IV antibiotics Zosyn and vancomycin. His mentation appears to have improved although he is still a poor historian. Reviewing records from [facility], patient has chronic thrombocytopenia with platelet counts ranging from 50-100 K. he has had recent admissions to [facility] in October 2024 with similar complaints. He was diagnosed with aspiration pneumonia, patient refused G-tube placement. Worsening thrombocytopenia is likely related to pneumonia, poor nutrition, antibiotic use and underlying liver disease/hepatitis-C. Acute worsening of anemia is also secondary to all of the above including end-stage renal disease. He has been on Procrit/LIN therapy with dialysis. He should be continued on this. He does not have any hematinic deficiencies. Low-grade DIC is possible, is mild elevation of PT/PTT with mildly decreased fibrinogen level. Haptoglobin was decreased, Zechariah test is positive. He could have developed autoimmune hemolytic anemia secondary to high-dose penicillin antibiotics i.e. Zosyn. Discontinue Zosyn if possible. Start prednisone 60 mg daily along with PPI. Monitor blood counts closely. Thank you, will follow with you. - Time Spent With Patient Time Spent with Patient (in minutes): 15
[2024-11-24 16:07] LABS: Glucose, Whole Blood 157 mg/dL (60-115)
[2024-11-24] MEDS: predniSONE 20 MG TABLET 60 MG PO (17:30)
[2024-11-24] MEDS: cefTRIAXone sodium 2 GM VIAL IVPUSH (17:31)
[2024-11-24 21:34] LABS: Vancomycin Random 10.3 mcg/mL (15-20)
[2024-11-24 22:01] LABS: Glucose, Whole Blood 194 mg/dL (60-115)
[2024-11-24] MEDS: Tamsulosin HCL 0.4 MG CAPSULE PO (22:12)
[2024-11-24] MEDS: Mirtazapine 15 MG TABLET PO (22:12)
[2024-11-24] MEDS: Melatonin 3 MG TABLET 6 MG PO (22:12)
--- NOTE | 2024-11-24 22:29 | W.PM.IDCN ---
History of Present Illness Data of Consult Service Date: 11/24/24 Requesting physician: Leana Krishnamurthy Primary Care Provider: JULIOCESAR SCHWARTZ Reason for consult: repeat hospitalizations ?infection He presents from [facility] with acute mental status changes and hypotension. His blood sugar is 41. He has lower body temperature. He has no leukocytosis. He has no rigors. He has h/o Hepatitis C, atrial fibrillationESRD on HD three times a week,DM and polyneuropathy He was hospitalized [facility] 10/20-10/22 for confusion and elevated glucose,DKA. He had hypotesion at dialysis and didnt get full treatment a once. He was discharged and returned on 10/26 with confusion again and treated for aspiration pneumonia with CTX and azithromycin. He left on Augmentin he took for two days and right back to [facility] again with lethargy. There were some areas of concern with back discomfort and MRI with contrast ?Brown malformation (no infection seen in spine). He was seen by Infectious Disease on 11/05 due to concern for weight loss and new RLL and LLL (1.5 cm) lung cavities. Blood cultures were negative and given Zosyn/Vancomycin per ID for possible early lung abscess/aspiration. Vancomycin was stopped next day due to negative MRSA nares. Cryptococcal antigen is pending. On 11/15 his MTB and AFB sputum negative. He was discharged on 11/17 with four weeks of Augmentin 500 mg daily po. Right now he is on room air ,not tachypneic and no signs of bacterial infection in blood. Review of Systems Review of Systems: Yes all other systems are reviewed and are negative [facility] Past Medical History Medical History Hypernatremia Vitamin D deficiency Hyperkalemia Hyperparathyroidism Dysphagia Hyperlipemia Hypertension Major depressive disorder Urine retention Systolic CHF Dementia Benign prostate hyperplasia Nicotine dependence Constipation Osteoarthritis Anemia Peripheral vascular disease Atrial fibrillation Gastrointestinal hemorrhage End stage renal disease on dialysis Hepatitis C COPD (chronic obstructive pulmonary disease) Cellulitis Streptococcal sepsis, unspecified Bacteremia Septic shock Sepsis Diabetes mellitus type 1 Hypertensive cardiopathy ESRD (end stage renal disease) on dialysis Family History Family history: reviewed and not pertinent Social History Social History Household Members: Other Household Members Other:: [facility] Housing: [facility] Unable to assess alcohol history related to: Unable to respond Alcohol intake: never Patient Tobacco Use Status: Current everyday Tobacco user Tobacco use type: Cigarette Second Hand Smoke Exposure: No Advance Directives Date on File: 06/22/22 service: No Current occupational status: disabled Meds Allergies Allergy/AdvReac Type Severity Reaction Status Date / Time No Known Allergies Allergy Verified 11/22/24 10:28 Active Medications: Current Medications Acetaminophen (Acetaminophen 325 Mg Tablet) 650 mg PO Q6H PRN PRN Reason: Fever Or Pain Calcium Carbonate (Calcium Carbonate 750 Mg Tab.Chew) 750 mg PO Q4H PRN PRN Reason: Heartburn Cyanocobalamin (Cyanocobalamin (Vitamin B-12) 1,000 Mcg Tablet) 1,000 mcg PO DAILY [facility] Last Admin: 11/24/24 10:21 Dose: 1,000 mcg Dextrose (Dextrose 50 % 25 Gm/50 Ml Syringe) 25 gm IVPUSH Q15M PRN; Protocol PRN Reason: per Hypoglycemia Standing Ord. Last Admin: 11/24/24 00:07 Dose: 25 gm Dextrose (Dextrose 50 % 25 Gm/50 Ml Syringe) 25 gm IVPUSH Q15M PRN; Protocol PRN Reason: per Hypoglycemia Standing Ord. Duloxetine HCl (Duloxetine Hcl 60 Mg Capsule.Dr) 60 mg PO DAILY [facility] Last Admin: 11/24/24 10:21 Dose: 60 mg Epinephrine (Epinephrine 1 Mg/Ml Vial) 0.3 mg IM Q5M PRN PRN Reason: Anaphylaxis Ergocalciferol (Ergocalciferol (Vitamin D2) 1,250 Mcg Capsule) 1,250 mcg PO WE@0900 [facility] Folic Acid (Folic Acid 1 Mg Tablet) 1 mg PO DAILY [facility] Last Admin: 11/24/24 10:21 Dose: 1 mg Glucagon (Glucagon Hcl 1 Mg Vial) 1 mg IM Q15M PRN PRN Reason: low BS Glucose (Glucose Gel 15 Gm Gel..Gram.) 15 gm PO Q15M PRN; Protocol PRN Reason: per Hypoglycemia Standing Ord. Last Admin: 11/23/24 23:38 Dose: 15 gm Glucose (Glucose Gel 15 Gm Gel..Gram.) 15 gm PO Q15M PRN; Protocol PRN Reason: per Hypoglycemia Standing Ord. Vancomycin HCl 500 mg/ Sodium (Chloride) 110 mls @ 110 mls/hr IV TuThSa@1800 [facility] Insulin Human Lispro (Insulin Lispro 100 Unit/Ml 3 Ml Vial) 0 unit SUBCUT QIDACHS [facility]; Protocol Last Admin: 11/24/24 21:57 Dose: Not Given Levothyroxine Sodium (Levothyroxine Sodium 25 Mcg Tablet) 25 mcg PO DAILY@0600 [facility] Last Admin: 11/24/24 06:13 Dose: 25 mcg Lidocaine (Lidocaine 4 % Patch Adh..Patch) 2 patch TRANSDERMA DAILY [facility]; Protocol Last Admin: 11/24/24 10:20 Dose: 2 patch Magnesium Hydroxide (Milk Of Magnesia 30 Ml Oral.Susp) 30 ml PO DAILY PRN PRN Reason: Constipation Melatonin (Melatonin 3 Mg Tablet) 6 mg PO BEDTIME [facility] Last Admin: 11/23/24 20:17 Dose: 6 mg Mirtazapine (Mirtazapine 15 Mg Tablet) 15 mg PO BEDTIME [facility] Last Admin: 11/23/24 20:17 Dose: 15 mg Naloxone HCl (Naloxone Hcl 0.4 Mg/Ml Vial) 0.4 mg SUBCUT Q2M PRN PRN Reason: Anaphylaxis Naloxone HCl (Naloxone Hcl Nasal 4 Mg [place]) 4 mg NOSTRILALT Q2M PRN PRN Reason: overdose Oxycodone HCl (Oxycodone Hcl Immed Release 5 Mg Tablet) 5 mg PO Q6H PRN PRN Reason: Pain (Scale Score 4-6) Last Admin: 11/24/24 10:26 Dose: 5 mg Pantoprazole Sodium (Pantoprazole Sodium 40 Mg/10 Ml Vial) 40 mg IVPUSH BID@0630,1630 [facility] Last Admin: 11/24/24 17:31 Dose: 40 mg Pharmacy Consult (Consult Rx Vancomycin Dosing) 1 each MISCELLANE DAILY PRN PRN Reason: Consult order Sodium Chloride (0.9 % Sodium Chloride Flush 3 Ml Syringe) 3 ml IVFLUSH QSHIFT [facility] Last Admin: 11/24/24 17:31 Dose: 3 ml Tamsulosin HCl (Tamsulosin Hcl 0.4 Mg Capsule) 0.4 mg PO BEDTIME [facility] Last Admin: 11/23/24 20:17 Dose: 0.4 mg Thiamine HCl (Thiamine Hcl 100 Mg Tablet) 100 mg PO DAILY [facility] Last Admin: 11/24/24 10:21 Dose: 100 mg Home Medications ?Medication ?Instructions ?Recorded ?Confirmed ?Last Taken ?Type duloxetine 60 mg capsule,delayed 1 cap PO DAILY 06/17/22 11/22/24 11/21/24 History release insulin lispro 100 unit/mL See Protocol subcut TIDAC 06/17/22 11/22/24 11/21/24 History subcutaneous solution (Humalog U-100 Insulin) mirtazapine 15 mg tablet 1 tab PO BEDTIME 06/17/22 11/22/24 11/21/24 History tamsulosin 0.4 mg capsule 1 cap PO BEDTIME 06/17/22 11/22/24 11/21/24 History acetaminophen 325 mg tablet 650 mg PO Q6H PRN Fever Or Pain 11/20/22 11/22/24 07/01/24 History acetaminophen 650 mg rectal 650 mg [place] Q6H PRN Fever Or Pain 11/20/22 11/22/24 Unknown History suppository insulin glargine 100 unit/mL (3 1 unit subcut BEDTIME 11/20/22 11/22/24 11/21/24 History mL) subcutaneous pen (Lantus Solostar U-100 Insulin) melatonin 5 mg tablet 5 mg PO BEDTIME Sleep 11/20/22 11/22/24 11/21/24 History oxycodone 5 mg tablet 5 mg PO Q6H PRN Pain (Scale Score 11/20/22 11/22/24 11/20/24 History 4-6) amoxicillin 500 mg-potassium 1 tab PO BEDTIME 11/22/24 11/22/24 11/21/24 History clavulanate 125 mg tablet (Augmentin) atorvastatin 40 mg tablet 40 mg PO BEDTIME 11/22/24 11/22/24 11/21/24 History cholecalciferol (vitamin D3) 1,250 1,250 mcg PO QMONTH 11/22/24 11/22/24 11/01/24 History mcg (50,000 unit) capsule cyanocobalamin (vitamin B-12) 1,000 mcg PO DAILY 11/22/24 11/22/24 11/21/24 History 1,000 mcg tablet epinephrine 0.3 mg/0.3 mL 0.3 mg IM Q5M PRN Anaphylaxis 11/22/24 11/22/24 Unknown History injection, auto-injector (EpiPen) ergocalciferol (vitamin D2) 1,250 1,250 mcg PO WE@0900 11/22/24 11/22/24 11/18/24 History mcg (50,000 unit) capsule folic acid 1 mg tablet 1 mg PO DAILY 11/22/24 11/22/24 11/21/24 History glucagon 1 mg/0.2 mL subcutaneous 1 mg subcut Q15M PRN low BS 11/22/24 11/22/24 Unknown History solution (Gvoke) naloxone 0.4 mg/mL injection 0.4 mg subcut Q2M PRN Anaphylaxis 11/22/24 11/22/24 Unknown History solution naloxone 4 mg/actuation nasal spray 4 mg intranasal Q2M PRN overdose 11/22/24 11/22/24 Unknown History thiamine HCl (vitamin B1) 100 mg 100 mg PO DAILY 11/22/24 11/22/24 11/21/24 History tablet Physical Exam Vital Signs: Vital Signs: Last Vital Signs Temp 98 F 11/24/24 22:15 Pulse 91 11/24/24 22:15 Resp 18 11/24/24 22:15 BP 169/81 H 11/24/24 22:15 Pulse Ox 96 11/24/24 22:15 O2 Del Method Room Air 11/24/24 22:15 O2 Flow Rate 2 11/23/24 11:09 BMI result Body Mass Index 20.6 Const: General: cooperative HEENT: Head: Yes normal to inspection Face and sinus: Yes normal facial exam Mouth: Normal oral and palatal mucosa present Teeth and gingiva: dentition normal Eyes: General: appearance normal, both eyes and all related structures Pupils: Equal, round and reactive pupils present Resp: Effort & Inspection: normal respiratory effort Cardio: Rate: regular rate Rhythm: regular rhythm GI: Palpation (GI): Soft to palpation and nontender : General: Yes no CVA tenderness Back/Spine/Pelvis: Back: no CVA tenderness Skin: General skin exam: no rashes or lesions noted Neuro: General: moves all extremities Cranial nerves: Yes Equal, round and reactive pupils present Extrem: General: Yes normal to inspection Psych: Appearance: grossly normal Results Labs 11/24/24 06:47 11/24/24 06:47 Labs: Short CBC 11/24/24 Range/Units 06:47 WBC 4.6 L (4.8-10.8) X10*3/uL Hgb 7.6 L (14.0-18.0) g/dl Hct 23.6 L (42.0-52.0) % Plt Count 39 L (160-400) X10*3/uL BMP 11/24/24 06:47 Sodium 133 L Potassium 4.3 Chloride 96 Carbon Dioxide 29 BUN 43 H Creatinine 4.63 H* Calcium 7.7 L D Liver Function 11/24/24 Range/Units 06:47 Total Bilirubin 0.5 (0.0-1.0) mg/dL AST 73 H (5-37) U/L ALT 46 H (0-40) U/L Alkaline Phosphatase 156 H (39-117) U/L Albumin 2.3 L (3.5-5.0) g/dL Microbiology Microbiology Results: Microbiology 11/22/24 10:04 Blood - Venous Blood Culture - Preliminary No growth after 48 hours. 11/22/24 10:04 Blood - Venous Blood Culture - Preliminary No growth after 48 hours. Assessment and Plan (1) Thrombocytopenia: Status: Acute (2) Hypothermia: Qualifiers: Encounter type: initial encounter Qualified Code(s): T68.XXXA - Hypothermia, initial encounter Status: Acute (3) ESRD (end stage renal disease) on dialysis: Status: Acute (4) Hypoglycemia: Status: Acute Plan He has no acute lung process at this time and is afebrile and not hypoxic. He has likely hypoglycemia cause of confusion and then secondary hypothermia. He should get best glucose regimen under control. Would continue po Augmentin until done (one month oral total).Can stop IV antibiotics at this time
[2024-11-25 02:07] LABS: Glucose, Whole Blood 202 mg/dL (60-115)
[2024-11-25 03:03] VITALS: BP 128/70; PULSE 83; RESP 18; TEMP 36.6; O2SAT 97
[2024-11-25] MEDS: Levothyroxine Sodium 25 MCG TABLET PO (05:48)
[2024-11-25] MEDS: Pantoprazole Sodium 40 MG/10 ML VIAL IVPUSH (05:48)
[2024-11-25 06:25] LABS: Glucose, Whole Blood 204 mg/dL (60-115)
[2024-11-25 07:36] VITALS: BP 137/85; PULSE 84; RESP 20; TEMP 36.2; O2SAT 100
[2024-11-25 08:21] LABS: Hematocrit 32.2 % (42.0-52.0); Hemoglobin 10.6 g/dl (14.0-18.0); Mean Corpuscular HGB Conc 32.9 g/dl (31.0-36.0); Mean Corpuscular Hemoglobin 28.1 pg (27.0-33.0); Mean Corpuscular Volume 85.4 fL (80.0-98.0); Mean Platelet Volume 9.7 fL (9.4-12.4); Red Blood Count 3.77 X10*6/uL (4.60-5.80); Red Cell Distribution Width 17.7 % (11.0-16.0); White Blood Count 6.5 X10*3/uL (4.8-10.8)
[2024-11-25 08:22] LABS: Platelet Count 38 X10*3/uL (160-400)
[2024-11-25 08:29] LABS: Alanine Aminotransferase 57 U/L (0-40); Albumin Level 2.5 g/dL (3.5-5.0); Alkaline Phosphatase 177 U/L (39-117); Anion Gap 17 (12-20); Aspartate Amino Transferase 80 U/L (5-37); Bilirubin Total 0.5 mg/dL (0.0-1.0); Blood Urea Nitrogen 28 mg/dL (9-16); Calcium 7.8 mg/dL (8.4-10.2); Carbon Dioxide 25 mmol/L (22-29); Chloride 97 mmol/L (96-108); Creatinine Clr Calc Pharmacy 19.9; Estimated Glomerular Filt Rate 19; Glucose Random 228 mg/dL (60-115); Potassium 4.3 mmol/L (3.3-5.1); Sodium 135 mmol/L (135-145); Total Protein 5.2 g/dL (6.5-8.0)
[2024-11-25] MEDS: Insulin Lispro 100 UNIT/ML 3 ML VIAL SUBCUT ×2 (08:50→12:30)
--- NOTE | 2024-11-25 09:02 | PM.GICN ---
History of Present Illness Data of Consult Service Date: 11/25/24 Requesting physician: Leana Krishnamurthy Primary Care Provider: JULIOCESAR SCHWARTZ Reason for consult: Hemolytic anemia PMFSH Past Medical History Medical History Hypernatremia Vitamin D deficiency Hyperkalemia Hyperparathyroidism Dysphagia Hyperlipemia Hypertension Major depressive disorder Urine retention Systolic CHF Dementia Benign prostate hyperplasia Nicotine dependence Constipation Osteoarthritis Anemia Peripheral vascular disease Atrial fibrillation Gastrointestinal hemorrhage End stage renal disease on dialysis Hepatitis C COPD (chronic obstructive pulmonary disease) Cellulitis Streptococcal sepsis, unspecified Bacteremia Septic shock Sepsis Diabetes mellitus type 1 Hypertensive cardiopathy ESRD (end stage renal disease) on dialysis Family History Family history: reviewed and not pertinent Social History Social History Household Members: Other Household Members Other:: [facility] Housing: Jail Unable to assess alcohol history related to: Unable to respond Alcohol intake: never Patient Tobacco Use Status: Current everyday Tobacco user Tobacco use type: Cigarette Second Hand Smoke Exposure: No Advance Directives Date on File: 06/22/22 service: No Current occupational status: disabled Meds Allergies Allergy/AdvReac Type Severity Reaction Status Date / Time No Known Allergies Allergy Verified 11/22/24 10:28 Active Medications: Current Medications Acetaminophen (Acetaminophen 325 Mg Tablet) 650 mg PO Q6H PRN PRN Reason: Fever Or Pain Amoxicillin/Clavulanate Potassium (Amoxicillin/Potassium Clav 500 Mg Tablet) 500 mg PO DAILY@1645 [facility] Calcium Carbonate (Calcium Carbonate 750 Mg Tab.Chew) 750 mg PO Q4H PRN PRN Reason: Heartburn Cyanocobalamin (Cyanocobalamin (Vitamin B-12) 1,000 Mcg Tablet) 1,000 mcg PO DAILY [facility] Last Admin: 11/24/24 10:21 Dose: 1,000 mcg Dextrose (Dextrose 50 % 25 Gm/50 Ml Syringe) 25 gm IVPUSH Q15M PRN; Protocol PRN Reason: per Hypoglycemia Standing Ord. Last Admin: 11/24/24 00:07 Dose: 25 gm Dextrose (Dextrose 50 % 25 Gm/50 Ml Syringe) 25 gm IVPUSH Q15M PRN; Protocol PRN Reason: per Hypoglycemia Standing Ord. Duloxetine HCl (Duloxetine Hcl 60 Mg Capsule.Dr) 60 mg PO DAILY [facility] Last Admin: 11/24/24 10:21 Dose: 60 mg Epinephrine (Epinephrine 1 Mg/Ml Vial) 0.3 mg IM Q5M PRN PRN Reason: Anaphylaxis Ergocalciferol (Ergocalciferol (Vitamin D2) 1,250 Mcg Capsule) 1,250 mcg PO WE@0900 [facility] Folic Acid (Folic Acid 1 Mg Tablet) 1 mg PO DAILY [facility] Last Admin: 11/24/24 10:21 Dose: 1 mg Glucagon (Glucagon Hcl 1 Mg Vial) 1 mg IM Q15M PRN PRN Reason: low BS Glucose (Glucose Gel 15 Gm Gel..Gram.) 15 gm PO Q15M PRN; Protocol PRN Reason: per Hypoglycemia Standing Ord. Last Admin: 11/23/24 23:38 Dose: 15 gm Glucose (Glucose Gel 15 Gm Gel..Gram.) 15 gm PO Q15M PRN; Protocol PRN Reason: per Hypoglycemia Standing Ord. Insulin Human Lispro (Insulin Lispro 100 Unit/Ml 3 Ml Vial) 0 unit SUBCUT QIDACHS [facility]; Protocol Last Admin: 11/24/24 21:57 Dose: Not Given Levothyroxine Sodium (Levothyroxine Sodium 25 Mcg Tablet) 25 mcg PO DAILY@0600 [facility] Last Admin: 11/25/24 05:48 Dose: 25 mcg Lidocaine (Lidocaine 4 % Patch Adh..Patch) 2 patch TRANSDERMA DAILY [facility]; Protocol Last Admin: 11/24/24 10:20 Dose: 2 patch Magnesium Hydroxide (Milk Of Magnesia 30 Ml Oral.Susp) 30 ml PO DAILY PRN PRN Reason: Constipation Melatonin (Melatonin 3 Mg Tablet) 6 mg PO BEDTIME [facility] Last Admin: 11/24/24 22:12 Dose: 6 mg Mirtazapine (Mirtazapine 15 Mg Tablet) 15 mg PO BEDTIME [facility] Last Admin: 11/24/24 22:12 Dose: 15 mg Naloxone HCl (Naloxone Hcl 0.4 Mg/Ml Vial) 0.4 mg SUBCUT Q2M PRN PRN Reason: Anaphylaxis Naloxone HCl (Naloxone Hcl Nasal 4 Mg [place]) 4 mg NOSTRILALT Q2M PRN PRN Reason: overdose Oxycodone HCl (Oxycodone Hcl Immed Release 5 Mg Tablet) 5 mg PO Q6H PRN PRN Reason: Pain (Scale Score 4-6) Last Admin: 11/24/24 22:28 Dose: 5 mg Pantoprazole Sodium (Pantoprazole Sodium 40 Mg/10 Ml Vial) 40 mg IVPUSH BID@0630,1630 [facility] Last Admin: 11/25/24 05:48 Dose: 40 mg Sodium Chloride (0.9 % Sodium Chloride Flush 3 Ml Syringe) 3 ml IVFLUSH QSHIFT [facility] Last Admin: 11/24/24 22:25 Dose: 3 ml Tamsulosin HCl (Tamsulosin Hcl 0.4 Mg Capsule) 0.4 mg PO BEDTIME [facility] Last Admin: 11/24/24 22:12 Dose: 0.4 mg Thiamine HCl (Thiamine Hcl 100 Mg Tablet) 100 mg PO DAILY [facility] Last Admin: 11/24/24 10:21 Dose: 100 mg Home Medications ?Medication ?Instructions ?Recorded ?Confirmed ?Last Taken ?Type duloxetine 60 mg capsule,delayed 1 cap PO DAILY 06/17/22 11/22/24 11/21/24 History release insulin lispro 100 unit/mL See Protocol subcut TIDAC 06/17/22 11/22/24 11/21/24 History subcutaneous solution (Humalog U-100 Insulin) mirtazapine 15 mg tablet 1 tab PO BEDTIME 06/17/22 11/22/24 11/21/24 History tamsulosin 0.4 mg capsule 1 cap PO BEDTIME 06/17/22 11/22/24 11/21/24 History acetaminophen 325 mg tablet 650 mg PO Q6H PRN Fever Or Pain 11/20/22 11/22/24 07/01/24 History acetaminophen 650 mg rectal 650 mg [place] Q6H PRN Fever Or Pain 11/20/22 11/22/24 Unknown History suppository insulin glargine 100 unit/mL (3 1 unit subcut BEDTIME 11/20/22 11/22/24 11/21/24 History mL) subcutaneous pen (Lantus Solostar U-100 Insulin) melatonin 5 mg tablet 5 mg PO BEDTIME Sleep 11/20/22 11/22/24 11/21/24 History oxycodone 5 mg tablet 5 mg PO Q6H PRN Pain (Scale Score 11/20/22 11/22/24 11/20/24 History 4-6) amoxicillin 500 mg-potassium 1 tab PO BEDTIME 11/22/24 11/22/24 11/21/24 History clavulanate 125 mg tablet (Augmentin) atorvastatin 40 mg tablet 40 mg PO BEDTIME 11/22/24 11/22/24 11/21/24 History cholecalciferol (vitamin D3) 1,250 1,250 mcg PO QMONTH 11/22/24 11/22/24 11/01/24 History mcg (50,000 unit) capsule cyanocobalamin (vitamin B-12) 1,000 mcg PO DAILY 11/22/24 11/22/24 11/21/24 History 1,000 mcg tablet epinephrine 0.3 mg/0.3 mL 0.3 mg IM Q5M PRN Anaphylaxis 11/22/24 11/22/24 Unknown History injection, auto-injector (EpiPen) ergocalciferol (vitamin D2) 1,250 1,250 mcg PO WE@0900 11/22/24 11/22/24 11/18/24 History mcg (50,000 unit) capsule folic acid 1 mg tablet 1 mg PO DAILY 11/22/24 11/22/24 11/21/24 History glucagon 1 mg/0.2 mL subcutaneous 1 mg subcut Q15M PRN low BS 11/22/24 11/22/24 Unknown History solution (Gvoke) naloxone 0.4 mg/mL injection 0.4 mg subcut Q2M PRN Anaphylaxis 11/22/24 11/22/24 Unknown History solution naloxone 4 mg/actuation nasal spray 4 mg intranasal Q2M PRN overdose 11/22/24 11/22/24 Unknown History thiamine HCl (vitamin B1) 100 mg 100 mg PO DAILY 11/22/24 11/22/24 11/21/24 History tablet Physical Exam Vital Signs: Vital Signs: Last Vital Signs Temp 97.1 F 11/25/24 07:36 Pulse 84 11/25/24 07:36 Resp 20 11/25/24 07:36 BP 137/85 11/25/24 07:36 Pulse Ox 100 11/25/24 07:36 O2 Del Method Nasal Cannula 11/25/24 07:36 O2 Flow Rate 2 11/25/24 07:36 BMI result Body Mass Index 20.6 Results Labs 11/25/24 08:04 11/25/24 08:04 Labs: Short CBC 11/25/24 Range/Units 08:04 WBC 6.5 (4.8-10.8) X10*3/uL Hgb 10.6 L D (14.0-18.0) g/dl Hct 32.2 L D (42.0-52.0) % Plt Count 38 L (160-400) X10*3/uL BMP 11/25/24 08:04 Sodium 135 Potassium 4.3 Chloride 97 Carbon Dioxide 25 BUN 28 H Creatinine 3.24 H Calcium 7.8 L Liver Function 11/25/24 Range/Units 08:04 Total Bilirubin 0.5 (0.0-1.0) mg/dL AST 80 H (5-37) U/L ALT 57 H (0-40) U/L Alkaline Phosphatase 177 H (39-117) U/L Albumin 2.5 L (3.5-5.0) g/dL Microbiology Microbiology Results: Microbiology 11/22/24 10:04 Blood - Venous Blood Culture - Preliminary No growth after 48 hours. 11/22/24 10:04 Blood - Venous Blood Culture - Preliminary No growth after 48 hours. Procedures Date of Service Date of Service: 11/25/24
[2024-11-25 09:50] LABS: Glucose, Whole Blood 265 mg/dL (60-115)
[2024-11-25] MEDS: Lidocaine 4 % Patch ADH..PATCH 2 PATCH TRANSDERMA (11:16)
[2024-11-25] MEDS: 0.9 % Sodium Chloride Flush 3 ML SYRINGE IVFLUSH (11:17)
[2024-11-25] MEDS: DULoxetine HCl 60 MG CAPSULE.DR PO (11:18)
[2024-11-25] MEDS: Cyanocobalamin (Vitamin B-12) 1,000 MCG TABLET 1000 MCG PO (11:18)
[2024-11-25] MEDS: Folic Acid 1 MG TABLET PO (11:18)
[2024-11-25] MEDS: Ergocalciferol (Vitamin D2) 1,250 MCG CAPSULE 1250 MCG PO (11:20)
[2024-11-25] MEDS: Thiamine HCL 100 MG TABLET PO (11:27)
--- NOTE | 2024-11-25 11:47 | MHC.CLN ---
F/U PT IS MODERATELY MALNOURISHED SEE CLINICAL NUTRITION ASSESSMENT DATED 11/23/24 PO INTAKE 50% X1 MEAL DIET RX: PUREED-APPROPRIATE RECEIVING ENSURE BID TO INCREASED KCALS SUPP PROVIDES 700KCALS, 40G PROTEIN MONITOR PO INTAKE AND ENCOURAGE SUPPLEMENT
[2024-11-25 12:00] VITALS: BP 118/84; PULSE 90; RESP 18; TEMP 36.5; O2SAT 100
--- NOTE | 2024-11-25 12:12 | P.DS_ITS ---
DS: Providers Provider Date of Service: 11/25/24 Date of admission: 11/22/24 14:33 Date of discharge: 11/25/24 Primary care physician: JULIOCESAR SCHWARTZ Consults: 11/22/24 16:59 Consult to Cardiology Routine Consulting Provider: [facility] Reason for consultation: EKG changes 11/22/24 22:08 Consult to Nephrology Routine Consulting Provider: [facility] Reason for consultation: ESRD on T/Th/Sat 11/23/24 07:45 Consult to Hematology / Oncology Routine Consulting Provider: [facility] Reason for consultation: pancytopenia -worsening Has provider been notified: No 11/23/24 09:52 Consult to Nephrology Routine Consulting Provider: [facility] Reason for consultation: Esrd onhd 11/23/24 16:38 Consult to Infectious Diseases Routine Consulting Provider: [facility] Reason for consultation: pneumonia ( recent [facility] admision),lumbar lesions Has provider been notified: No DS: Diagnosis Discharge Diagnosis (1) Thrombocytopenia: Status: Acute DS: Summary Hospital Course Hospital Course: from initial hpi: 64-year-old male with a PMH significant for?ESRD on HD //Sat, type I brittle diabetes, NSTEMI 11/2022, HLD, COPD, BPH, CHF, seizure disorder, anemia of chronic disease, chronic thrombocytopenia, hepatitis C, unspecified dementia, mood disorder, among others who presents to the ED from [facility] for evaluation of increased confusion and lethargy. Per staff pt was in his normal state of health this morning but became limp and unresponsive when transferred to his wheelchair. Normally AOx3 and uses wheelchair at baseline. In the ED pt was noted to be responsive to painful stimuli only, grunting but not answering questions, hypothermic as low as 93.2, and hypoglycemic in the 30s and 40s. Pt seen and evaluated where he is still in [facility]. Pt is alert and oriented to self and place but not to time or situation. Complains of pain all over though primarily in back. Denies chest pain, pressure, or palpitations. No nausea, vomiting, or abd pain. Of note, pt was recently admitted to [facility] on 10/26-10/31 for failure to thrive, dehydration, and encephlopathy thought secondary to multifocal pneumonia. Was discharged to [facility] and represented 3 days later on 11/03 with recurrent lethargy and encephalopathy. Was admitted again for multifocal peumonia, aspiration pneumonia, and cavitary lesions. TB ruled out with negative AFB sputum cultures x3. Pt had low p.o. intake but refused NG or G-tube. Was discharged back to [facility] on Augmentin x4 weeks, set to end on 12/04. In the ED pt was hypothermic as low as 93.2, bradypneic at 10, and hypertensive as high as 161/89. Labs were significant for multiple episodes of hypoglycemia with POC of 36, 49, 43, and 47. Lactic acid 2.2 with repeat 1.8. AST 85, ALT 62, alk-phos 198. BNP 3651. Thrombocytopenia of 60. Leukopenia 4.2 (chronically low). Stable H&H 9.9/31.5 (around baseline). Chronic hyponatremia of 134. Tested negative for flu, COVID, RSV. VBG with pH 7.53, pCO2 40, and bicarb 34. CXR showed peripheral left basilar or ovoid 3.8 cm masslike opacity, possibly with representing soft tissue summation or external. CT?of head without acute intracranial findings. X-ray of hips and pelvis without acute findings. Abdominal ultrasound found coarsened hepatic echotexture without focal mass or biliary obstruction. Also showed right pleural effusion and small amount of ascites. CT of chest found bibasilar atelectasis vs pneumonia with small bilateral pleural effusions and suspicious left lower lobe nodule. EKG demonstrated normal sinus rhythm with new profound t-wave depressions in anterolateral leads. Pt was treated in the ED with dextrose 25 g x2, glucagon 1 mg IM, IVF, vanc and Zosyn. Pt is admitted to the hospital for hypoglycemia, hypthermia, and acute metabolic encephalopathy in the setting of likely aspiration pneumonia hospital course: Patient was admitted for acute metabolic encephalopathy due to brittle type 1 diabetes with hypoglycemia, hypothyroid, aspiration pneumonia, hypothermia. For the hypoglycemia his glargine was held and fingersticks have been better controlled on insulin sliding scale. For hypothyroid was started on levothyroxine 25 mcg, TSH should be repeated in 1 month. Hypothermia has resolved. For aspiration pneumonia was treated with vancomycin Zosyn, was seen by infectious disease who recommended completing 1 month of p.o. Augmentin. Patient noted to have pancytopenia, Zechariah positive was started on prednisone taper to be completed over 1 month decrease by 10 mg per day per week. He will follow up with Hematology. Patient's echocardiogram showed severe increased LV wall thickness and EF of 54% consideration for infiltrative disease such as amyloid, patient noted to have moderate to severe protein calorie malnutrition supplementation recommended. For end-stage renal disease continued on dialysis with [facility] [place]. patient feeling better and stable will be discharged back to SNF and continue work up outpatient. Time Attestation Discharge Coordination Time (in mins): 33 Quality: Safe Use of Opioids Does Pt have an Active Cancer Diagnosis on the Problem List?: No Quality: Stroke Does the patient have a stroke diagnosis?: No Physical Exam Vital Signs: Vital Signs: Last Vital Signs Temp 97.7 F 11/25/24 12:00 Pulse 90 11/25/24 12:00 Resp 18 11/25/24 12:00 BP 118/84 11/25/24 12:00 Pulse Ox 100 11/25/24 12:00 O2 Del Method Room Air 11/25/24 12:00 O2 Flow Rate 2 11/25/24 07:36 BMI result Body Mass Index 20.6 Const: General: cooperative HEENT: Head: Yes normal to inspection Face and sinus: Yes normal facial exam Mouth: Normal oral and palatal mucosa present Teeth and gingiva: dentition normal Eyes: General: appearance normal, both eyes and all related structures Pupils: Equal, round and reactive pupils present Resp: Effort & Inspection: normal respiratory effort Cardio: Rate: regular rate Rhythm: regular rhythm GI: Palpation (GI): Soft to palpation and nontender : General: Yes no CVA tenderness Back/Spine/Pelvis: Back: no CVA tenderness Skin: General skin exam: no rashes or lesions noted Neuro: General: moves all extremities Cranial nerves: Yes Equal, round and reactive pupils present Extrem: General: Yes normal to inspection Psych: Appearance: grossly normal DS: Data Data Completed and Pending Completed studies during hospitalization [Text1]: Procedures Insertion of Endotracheal Airway into Trachea, Via Natural or Artificial Opening (06/17/22) Insertion of Infusion Device into Superior Vena Cava, Percutaneous Approach (06/17/22) Performance of Urinary Filtration, Intermittent, Less than 6 Hours Per Day (11/20/22) Respiratory Ventilation, 24-96 Consecutive Hours (06/17/22) Ultrasonography of Superior Vena Cava, Guidance (06/17/22) Labs on day of discharge: Laboratory Results - last 24 hr 11/23/24 11/24/24 11/24/24 16:57 16:02 21:09 WBC RBC Hgb Hct MCV MCH MCHC RDW Plt Count MPV Absolute Nucleated RBC Nucleated RBC % (auto) Sodium Potassium Chloride Carbon Dioxide Anion Gap BUN Creatinine Estim Creat Clear Calc Estimated GFR POC Glucose 157 H Random Glucose Calcium Total Bilirubin AST ALT Alkaline Phosphatase Total Protein Albumin Random Vancomycin 10.3 L Blood Type B Positive Antibody Screen NEGATIVE SRUTHI, Polyspecific POSITIVE A Positive SRUTHI Work-up IgG=Pos I0f=Tst A Crossmatch See Detail 11/24/24 11/25/24 11/25/24 21:55 02:02 06:19 WBC RBC Hgb Hct MCV MCH MCHC RDW Plt Count MPV Absolute Nucleated RBC Nucleated RBC % (auto) Sodium Potassium Chloride Carbon Dioxide Anion Gap BUN Creatinine Estim Creat Clear Calc Estimated GFR POC Glucose 194 H 202 H 204 H Random Glucose Calcium Total Bilirubin AST ALT Alkaline Phosphatase Total Protein Albumin Random Vancomycin Blood Type Antibody Screen SRUTHI, Polyspecific Positive SRUTHI Work-up Crossmatch 11/25/24 11/25/24 08:04 09:47 WBC 6.5 RBC 3.77 L D Hgb 10.6 L D Hct 32.2 L D MCV 85.4 MCH 28.1 MCHC 32.9 RDW 17.7 H Plt Count 38 L MPV 9.7 Absolute Nucleated RBC 0.000 Nucleated RBC % (auto) 0.0 Sodium 135 Potassium 4.3 Chloride 97 Carbon Dioxide 25 Anion Gap 17 BUN 28 H Creatinine 3.24 H Estim Creat Clear Calc 19.9 Estimated GFR 19 POC Glucose 265 H Random Glucose 228 H Calcium 7.8 L Total Bilirubin 0.5 AST 80 H ALT 57 H Alkaline Phosphatase 177 H Total Protein 5.2 L Albumin 2.5 L Random Vancomycin Blood Type Antibody Screen SRUTHI, Polyspecific Positive SRUTHI Work-up Crossmatch Preliminary micro results at discharge 11/22/24 10:04 Blood Culture - Preliminary Blood - Venous No growth after 48 hours. 11/22/24 10:04 Blood Culture - Preliminary Blood - Venous No growth after 48 hours. Discharge Plan Discharge Anticipated Discharge Date/Time: 11/25/24 11:33 Patient Disposition: [facility] Discharge Diagnosis: pancytopenia, aspiration, ?amyloid Referrals: Georgi Monroy MD [Physician] - 1 Week Michell Mendoza MD [Physician] - 1 Week JULIOCESAR SCHWARTZ [Primary Care Provider] - 1 Week Discharge Medications: New levothyroxine 25 mcg Tablet 25 mcg PO DAILY@0600 Qty: 90 0RF prednisone 10 mg tablet See Taper PO DIRECTED Qty: 100 0RF Taper: Prednisone 40 mg daily for 7 Days and 0 Hour 30 mg daily for 7 Days and 0 Hour 20 mg daily for 7 Days and 0 Hour 10 mg daily for 7 Days and 0 Hour Rx Instructions: see taper instructions Continued tamsulosin 0.4 mg capsule 1 cap PO BEDTIME mirtazapine 15 mg tablet 1 tab PO BEDTIME insulin lispro [Humalog U-100 Insulin] 100 unit/mL Solution See Protocol SUBCUT TIDAC Protocol: Insulin Correction Scale Less than or equal to 110 ---- Give (units): 0 111 to 150 Give (units): 0 151 to 200 Give (units): 1 201 to 250 Give (units): 2 251 to 300 Give (units): 2 301 to 350 Give (units): 3 Greater than 350 Give (units): 3 Call MD if Blood Glucose > : 400 duloxetine 60 mg capsule,delayed release(DR/EC) 1 cap PO DAILY acetaminophen 325 mg Tablet 650 mg PO Q6H PRN (Reason: Fever Or Pain) acetaminophen 650 mg Suppository 650 mg KS Q6H PRN (Reason: Fever Or Pain) oxycodone 5 mg Tablet 5 mg PO Q6H PRN (Reason: Pain (Scale Score 4-6)) Rx Instructions: pain for right hip melatonin 5 mg Tablet 5 mg PO BEDTIME atorvastatin 40 mg Tablet 40 mg PO BEDTIME naloxone 0.4 mg/mL Solution 0.4 mg SUBCUT Q2M PRN (Reason: Anaphylaxis) Rx Instructions: NTExceed 10 mg total dose/episode cyanocobalamin (vitamin B-12) 1,000 mcg Tablet 1,000 mcg PO DAILY thiamine HCl (vitamin B1) 100 mg Tablet 100 mg PO DAILY folic acid 1 mg Tablet 1 mg PO DAILY ergocalciferol (vitamin D2) 1,250 mcg (50,000 unit) Capsule 1,250 mcg PO WE@0900 epinephrine [EpiPen] 0.3 mg/0.3 mL Auto-Injector 0.3 mg IM Q5M PRN (Reason: Anaphylaxis) Rx Instructions: for 2 doses amoxicillin-pot clavulanate [Augmentin] 500-125 mg Tablet 1 tab PO BEDTIME Rx Instructions: 11/19/24 through 12/04/24 cholecalciferol (vitamin D3) 1,250 mcg (50,000 unit) Capsule 1,250 mcg PO QMONTH Rx Instructions: every month on the naloxone 4 mg/actuation [place],Non-Aerosol 4 mg INTRANASAL Q2M PRN (Reason: overdose) Rx Instructions: spray 1 dose into ONE nostril; alternate nostrils w each dose until help arrives Gvoke 1 mg/0.2 mL Solution 1 mg SUBCUT Q15M PRN (Reason: low BS) Rx Instructions: until target blood sugar attained Discontinued insulin glargine [Lantus Solostar U-100 Insulin] 100 unit/mL (3 mL) Insulin Pen 1 unit SUBCUT BEDTIME Discharge Orders: Discharge Order (Routine); Ordered 11/25/24 Ordered By: Dung Hernandez Diet: Advance to usual diet Activity on Discharge: As tolerated Stand Alone Forms: Patient Portal Discharge page Print Language: Yi Care Plan Goals: recovery Health Concerns: Immune mediated pancytopenia, concern for possible amyloidosis, hypoglycemia, aspiration pneumonia Plan of Treatment: Complete 1 month of Augmentin 500 mg daily Complete 1 month prednisone taper decrease by 10 mg a day per week Follow up with Hematology Discontinued glargine, monitor sugars Started newly on levothyroxine, repeat TSH in 6 weeks Assessment: see above
--- NOTE | 2024-11-25 12:45 | MHC.CM.PN ---
Patient has been medically cleared for dc today back to LTC @ [facility]; [facility] pick Patient [facility] today at 4PM. [facility] transport auth # is [id number]. CM left a detailed message for Sister/HCP/Aaliyah @ [phone], informing her of the dc plan.
[2024-11-25 13:27] LABS: MRSA Nasal PCR NEGATIVE (Negative); SA Nasal PCR NEGATIVE (Negative)
[2024-11-25 13:57] LABS: Glucose, Whole Blood 245 mg/dL (60-115)
--- NOTE | 2024-11-25 14:04 | MHC.SLORD ---
Speech Language Pathology Order Status: STOCK CHECKER tx attempted, pt resting comfortably in bear hugger, refused PO at this time. Pt d/c planned for today, returning to [facility] STOCK CHECKER at facility continue to follow pt in managing dysphagia.
--- NOTE | 2024-11-25 15:46 | PC.NURSE ---
temperature stable based on vital signs, patient requested bear hugger to be in operation because he feels cold.
[2024-11-25 15:47] VITALS: BP 133/82; PULSE 91; RESP 18; TEMP 36.6; O2SAT 98
--- NOTE | 2024-11-25 18:37 | P.PNNP_ITS ---
Subjective Subjective Date of Service: 11/24/24 Interval history: anemia pneumonia Physical Exam 2 Vital Signs: Vital Signs: Last Vital Signs Temp 98 F 11/25/24 15:47 Pulse 91 11/25/24 15:47 Resp 18 11/25/24 15:47 BP 133/82 11/25/24 15:47 Pulse Ox 98 11/25/24 15:47 O2 Del Method Room Air 11/25/24 15:47 O2 Flow Rate 2 11/25/24 07:36 BMI result Body Mass Index 20.6 Const: General: comfortable and no acute distress O rientation/consciousness: patient oriented x3 HEENT: Other: Unremarkable Head: Yes normal to inspection Neck: Neck: Yes normal visual inspection Chest: Chest palpation & inspection: normal inspection of the chest Resp: Auscultation: clear to auscultation bilaterally Cardio: Palpation: normal PMI Heart sounds: S1 normal heart sound present, S2 normal heart sound present, no gallops, no murmurs and no rubs GI: Palpation (GI): Soft to palpation Back/Spine/Pelvis: Other: unremarkable Skin: General skin exam: no rashes or lesions noted Neuro: General: patient oriented x3 Extrem: General: Yes normal to inspection Psych: Mental Status: mental status grossly normal Objective Data Labs 11/25/24 08:04 11/25/24 08:04 Labs: Laboratory Results - last 24 hr 11/24/24 11/24/24 11/24/24 21:09 21:55 22:54 WBC RBC Hgb Hct MCV MCH MCHC RDW Plt Count MPV Absolute Nucleated RBC Nucleated RBC % (auto) Sodium Potassium Chloride Carbon Dioxide Anion Gap BUN Creatinine Estim Creat Clear Calc Estimated GFR POC Glucose 194 H Random Glucose Calcium Total Bilirubin AST ALT Alkaline Phosphatase Total Protein Albumin Nasal Screen MRSA (PCR) NEGATIVE Nasal S. aureus Screen NEGATIVE Nasal MRSA/S.aureus Interp SEE NOTE Random Vancomycin 10.3 L 11/25/24 11/25/24 11/25/24 02:02 06:19 08:04 WBC 6.5 RBC 3.77 L D Hgb 10.6 L D Hct 32.2 L D MCV 85.4 MCH 28.1 MCHC 32.9 RDW 17.7 H Plt Count 38 L MPV 9.7 Absolute Nucleated RBC 0.000 Nucleated RBC % (auto) 0.0 Sodium 135 Potassium 4.3 Chloride 97 Carbon Dioxide 25 Anion Gap 17 BUN 28 H Creatinine 3.24 H Estim Creat Clear Calc 19.9 Estimated GFR 19 POC Glucose 202 H 204 H Random Glucose 228 H Calcium 7.8 L Total Bilirubin 0.5 AST 80 H ALT 57 H Alkaline Phosphatase 177 H Total Protein 5.2 L Albumin 2.5 L Nasal Screen MRSA (PCR) Nasal S. aureus Screen Nasal MRSA/S.aureus Interp Random Vancomycin 11/25/24 11/25/24 09:47 13:53 WBC RBC Hgb Hct MCV MCH MCHC RDW Plt Count MPV Absolute Nucleated RBC Nucleated RBC % (auto) Sodium Potassium Chloride Carbon Dioxide Anion Gap BUN Creatinine Estim Creat Clear Calc Estimated GFR POC Glucose 265 H 245 H Random Glucose Calcium Total Bilirubin AST ALT Alkaline Phosphatase Total Protein Albumin Nasal Screen MRSA (PCR) Nasal S. aureus Screen Nasal MRSA/S.aureus Interp Random Vancomycin Microbiology Microbiology Results: Microbiology 11/22/24 10:04 Blood - Venous Blood Culture - Preliminary No growth after 48 hours. 11/22/24 10:04 Blood - Venous Blood Culture - Preliminary No growth after 48 hours. Procedures Date of Service Date of Service: 11/25/24 Assessment & Plan Assessment and plan (1) Thrombocytopenia: Status: Acute Plan 1. ESRD: mwf LISA [place] 2. DM 3. Anemia and low PLT: runs chronically milde decr PLTs and anemia but signif decr since adm--w/u in progress; ques TMA vs other 4. AMS: ques BSL 5. CAD: w/u in progress for incr Trops and ques EKG changes REC: HD today, xfuse to keep Hb > 7.0; cont f/u Heme re Tx Case d/w Dr Krishnamurthy Time Spent With Patient Time: Total time managing care of this patient today ____ minutes. Progress Note: Quality Stroke Does the patient have a stroke diagnosis?: No
== END 2024-11-25 16:19 | DRG 177 ==
LOC: HO.ED 12:02 → HO.EDOVER 14:33 → HO.IMC 11-23 07:38
PROVIDERS: Internal Medicine; Physician Assistant; Admitting Provider Student in an Organized Health Care Education/Training Program; Emergency Provider Emergency Medicine; PCP Emergency Medicine; Visit Provider Internal Medicine
DX: J69.0 Pneumonitis due to inhalation of food and vomit (principal); E43 Unspecified severe protein-calorie malnutrition; G93.41 Metabolic encephalopathy; N18.6 End stage renal disease; I13.2 Hypertensive heart and chronic kidney disease with heart failure and with stage 5 chronic kidney disease, or end stage renal disease; I50.22 Chronic systolic (congestive) heart failure; Z68.1 Body mass index [BMI] 19.9 or less, adult; D61.818 Other pancytopenia; I51.81 Takotsubo syndrome; I48.20 Chronic atrial fibrillation, unspecified; E85.4 Organ-limited amyloidosis; I43 Cardiomyopathy in diseases classified elsewhere; E10.649 Type 1 diabetes mellitus with hypoglycemia without coma; R68.0 Hypothermia, not associated with low environmental temperature; E10.22 Type 1 diabetes mellitus with diabetic chronic kidney disease; E03.9 Hypothyroidism, unspecified; D63.1 Anemia in chronic kidney disease; N25.0 Renal osteodystrophy; N40.0 Benign prostatic hyperplasia without lower urinary tract symptoms; I25.10 Atherosclerotic heart disease of native coronary artery without angina pectoris; E78.5 Hyperlipidemia, unspecified; E10.42 Type 1 diabetes mellitus with diabetic polyneuropathy; R94.31 Abnormal electrocardiogram [ECG] [EKG]; E88.09 Other disorders of plasma-protein metabolism, not elsewhere classified; E10.65 Type 1 diabetes mellitus with hyperglycemia; Z20.822 Contact with and (suspected) exposure to COVID-19; Z99.2 Dependence on renal dialysis; Z79.899 Other long term (current) drug therapy
CPT/HCPCS: 0241U; 36415; 70450; 71045; 71250; 73521; 76705; 80048; 80053; 80076; 80202; 82140; 82272; 82533; 82607; 82728; 82746; 82803; 82947; 83010; 83540; 83605; 83615; 83690; 83735; 83880; 84100; 84436; 84443; 84484; 85007; 85025; 85027; 85384; 85610; 85730; 86704; 86706; 86709; 86803; 86850; 86880; 86900; 86901; 86923; 87040; 87340; 87640; 87641; 90999; 92610; 93005; 93306; 99285; J0651; J0696; J1610; J2003; J2470; J2543; J3370; J3371; J7120; P9016; P9047; Q9957

== ENCOUNTER → 2024-11-22 09:35 | Outpatient (BNV) | payer OTHER, SELFPAY | PROVIDERS: Emergency Provider Emergency Medicine; PCP Emergency Medicine; Visit Provider Radiology Diagnostic Radiology | DX: R91.1 Solitary pulmonary nodule (principal); R41.82 Altered mental status, unspecified; R94.5 Abnormal results of liver function studies; M16.0 Bilateral primary osteoarthritis of hip | CPT/HCPCS: 70450; 71045; 71250; 73521; 76705 ==

== ENCOUNTER 2024-11-22 14:33 | Outpatient (BNV) | payer OTHER, SELFPAY | END 2024-11-24 07:00 | PROVIDERS: Admitting Provider Student in an Organized Health Care Education/Training Program; Emergency Provider Emergency Medicine; PCP Emergency Medicine; Visit Provider Internal Medicine | DX: R94.31 Abnormal electrocardiogram [ECG] [EKG] (principal); I35.8 Other nonrheumatic aortic valve disorders; I34.81 Nonrheumatic mitral (valve) annulus calcification; I36.1 Nonrheumatic tricuspid (valve) insufficiency; I44.4 Left anterior fascicular block | CPT/HCPCS: 93010; 93306; 93356 ==

== ENCOUNTER → 2024-11-22 14:33 | Outpatient (BNV) | payer OTHER, SELFPAY | PROVIDERS: Admitting Provider Student in an Organized Health Care Education/Training Program; Emergency Provider Emergency Medicine; PCP Emergency Medicine; Visit Provider Internal Medicine | DX: D69.6 Thrombocytopenia, unspecified (principal) | CPT/HCPCS: 99222; 99232 ==

== ENCOUNTER → 2024-11-22 14:33 | Outpatient (BNV) | payer OTHER, SELFPAY | PROVIDERS: Admitting Provider Student in an Organized Health Care Education/Training Program; Emergency Provider Emergency Medicine; PCP Emergency Medicine; Visit Provider Student in an Organized Health Care Education/Training Program | DX: D69.6 Thrombocytopenia, unspecified (principal) | CPT/HCPCS: 99223; 99233; 99239 ==

== ENCOUNTER → 2024-11-22 14:33 | Outpatient (BNV) | payer OTHER, SELFPAY | PROVIDERS: Admitting Provider Student in an Organized Health Care Education/Training Program; Emergency Provider Emergency Medicine; PCP Emergency Medicine; Visit Provider Internal Medicine | DX: R94.31 Abnormal electrocardiogram [ECG] [EKG] (principal); E16.2 Hypoglycemia, unspecified; N18.6 End stage renal disease; Z99.2 Dependence on renal dialysis; G93.41 Metabolic encephalopathy; R00.0 Tachycardia, unspecified; I95.9 Hypotension, unspecified | CPT/HCPCS: 93010; 99223; 99232 ==

== ENCOUNTER → 2024-11-22 14:33 | Outpatient (BNV) | payer OTHER, SELFPAY | PROVIDERS: Admitting Provider Student in an Organized Health Care Education/Training Program; Emergency Provider Emergency Medicine; PCP Emergency Medicine; Visit Provider Internal Medicine | DX: D69.6 Thrombocytopenia, unspecified (principal); T68.XXXA Hypothermia, initial encounter; N18.6 End stage renal disease; Z99.2 Dependence on renal dialysis; E16.2 Hypoglycemia, unspecified | CPT/HCPCS: 99222 ==

== ENCOUNTER 2024-12-10 16:55 | Inpatient (IN) | payer OTHER, SELFPAY ==
[2024-12-10] VITALS (14 sets, daily range): BP systolic 64–168; BP diastolic 47–99; PULSE 66–85; RESP 13–20; TEMP 34.1–35.7; O2SAT 94–100; BMI 20.8
--- NOTE | ~2024-12-10 | CT_ITS ---
CLINICAL HISTORY: SEPSIS DIC CT angiography chest with contrast. With MIP MPR Postprocessing. Comparison: Chest CT from 11/22/2024 Findings: New Masslike consolidations partially imaged in the left upper lobe concerning for pneumonia. Postobstructive pneumonia and lung neoplasm not excluded by imaging given consolidation measuring 8.2 cm medially in the left upper lobe with the adjacent masslike consolidation measuring 4.2 cm in the apex (imaged 29 of series 13). Air bronchograms are multifocal, and new/worsening. Pulmonary opacities likely accentuated by atelectasis in the lower lobes, with right worse than left moderate bilateral pleural effusions; also worse-progressed relative to comparison CT study. No pneumothorax. No central pulmonary embolism. Calcified and noncalcified plaque include imaged aorta and its branches. Coronary artery calcifications noted with mild-moderate cardiomegaly. Contrast refluxes into hepatic veins as can be seen with poor cardiac output. The endotracheal tube terminates in the mid thoracic trachea. Enteric tube terminates in the proximal stomach. Mild periportal edema noted in the imaged liver in the imaged abdomen. Metal artifacts are multifocal. Degenerative changes include imaged shoulders and imaged spine with severe osteoarthritis of the partially imaged left glenohumeral joint. Mild vertebral height losses appear old/chronic including T11. Schmorl's nodes are multifocal. Sternum segmentation anomaly noted. IMPRESSION: 1. No central pulmonary embolism. 2. Severe bilateral airspace disease is nonspecific. Differential considerations include combination of the atelectasis and multifocal pneumonia. Recommend attention follow-up to ensure resolution. Infectious inflammatory etiologies are favored by imaging given rapid onset and marked worsening when compared to 11/22/2024. 3. Moderate bilateral pleural effusions, right worse than left. This document has been electronically signed by: Sd Trevino MD on 12/16/2024 03:09:43
--- NOTE | ~2024-12-10 | CT_ITS ---
CLINICAL HISTORY: Sepsis DIC? Exam: CT of the abdomen and pelvis with and without intravenous contrast. Comparison: CT of the abdomen and pelvis from 06/17/2022. Findings: Dense stool burden is multifocal within large intestine decreasing sensitivity for endoluminal contrast accumulation. No definite arterial extravasation of the contrast or endoluminal contrast to defined site of the reported GI bleed. Wall thickening of the large intestine is moderate to severe including the descending colon and sigmoid colon. Differential considerations include colitis. Neoplasm not excluded by CT. The appendix is not definitively seen. Severe stool burden redemonstrated, including in the cecum. Mild fat deposition of the liver with periportal edema. Gallbladder is mildly distended with pharyngeal cap. No portal vein thrombosis. Mild adrenal hyperplasia. Spleen is at the upper limits of normal. Mild worsening of the moderate volume loss of the pancreas with borderline pancreatic duct dilatation. No hydronephrosis. Multiple cystic lesions noted in the kidneys. Bilateral nephrolithiasis with right lower renal stone measuring up to 5 mm. Calcified and noncalcified plaque including the aorta and its branches. No dissection flap or aneurysm of the abdominal aorta. Moderate to severe stenosis of the celiac axis of the origin. Moderate to severe stenosis of the imaged SMA is multifocal and accentuated by artifacts. Moderate to severe bilateral renal artery stenosis also noted. NHI opacifies. Mild stenosis of the imaged iliacs and femoral arteries are superficial in the abdomen and pelvis study. Mild wall thickening of the urinary bladder is nonspecific. Partially imaged prostate gland measures 4 cm transverse. Moderate free fluid in the abdomen pelvis is nonspecific. No new or enlarged lymphadenopathy. No significant change in mild multifocal vertebral height losses. Increased sclerosis nonspecific may be due to combination of the degenerative changes in renal osteodystrophy. Mild pelvis deformities appear old. Degenerative changes include the imaged hips, SI joints, and spine, with multifocal facet arthropathy. Impression: 1. No arterial extravasation of the contents accounting for dense and severe stool burden. 2. Wall thickening of the large intestine is nonspecific and concerning for colitis, including sigmoid colon. 3. Multifocal atherosclerosis. This document has been electronically signed by: Sd Trevino MD on 12/16/2024 01:33:58
--- NOTE | ~2024-12-10 | XR_ITS ---
CLINICAL HISTORY: et tube, og tube 1 view chest x-ray Comparison: Chest x-ray from 11/22/2024 Findings: New endotracheal tube terminates in the upper thoracic trachea. Enteric tube terminates in the stomach with tip directed back towards the gastroesophageal junction. Small bilateral pleural effusions. No definite pneumothorax in this portable study with lateral skin folds noted, worsening effusions, and worsening atelectasis and/or airspace disease including left hilar region, where air bronchograms are now present. No definite osseous change in the [id number]. IMPRESSION: 1. Worsening severe bilateral airspace disease. Differential considerations include multifocal pneumonia. Recommend attention on follow-up to ensure resolution. 2. The endotracheal tube terminates in the upper thoracic trachea. 3. No definite pneumothorax, accounting for skin folds. This document has been electronically signed by: Sd Trevino MD on 12/15/2024 22:32:27
--- NOTE | 2024-12-10 17:39 | ED_ITS ---
HPI - Altered Mental Status General Chief Complaint: General Medical Stated Complaint: bleeding from dialysis fistula Time Seen by Provider: 12/10/24 17:44 Mode of arrival: EMS Limitations: no limitations History of Present Illness ED Provider: Dr. Tom Triana HPI narrative: 64-year-old male with a PMH significant for?ESRD on HD T/, type I brittle diabetes, NSTEMI 11/2022, HLD, COPD, BPH, CHF, seizure disorder, anemia of chronic disease, chronic thrombocytopenia, hepatitis C, unspecified dementia, mood disorder, among others who presents to the ED from [facility] for evaluation bleeding from his dialysis fistula. The patient had dialysis today and apparently was sent back to his SNF with a dressing over his dialysis fistula site and it was still bleeding. The paramedics report that the patient had a small bleed and I applied a tourniquet and the patient was transported to the emergency department. Here in the emergency department there was a dressing over the fistula puncture site covered with a towel but the patient was bleeding through the dressing in the the towel. The patient was somnolent and his point of care glucose was 52. Initial rectal temperature was 93.4 degrees F. how long can you leave a dialysis clamp on a AV fistula. Patient was recently admitted to [facility] with hypothermia and hypoglycemia from 08/2022 until 11/25/2022 with discharge diagnosis of acute thrombocytopenia. He was treated for aspiration pneumonia as well. Related Data Home Medications ?Medication ?Instructions ?Recorded ?Confirmed duloxetine 60 mg capsule,delayed 60 mg PO DAILY 06/17/22 12/10/24 release insulin lispro 100 unit/mL See Protocol subcut TIDAC 06/17/22 12/10/24 subcutaneous solution (Humalog U-100 Insulin) mirtazapine 15 mg tablet 15 mg PO BEDTIME 06/17/22 12/10/24 tamsulosin 0.4 mg capsule 1 cap PO BEDTIME 06/17/22 12/10/24 acetaminophen 325 mg tablet 650 mg PO Q6H PRN Fever Or Pain 11/20/22 12/10/24 acetaminophen 650 mg rectal 650 mg CA Q6H PRN Fever Or Pain 11/20/22 12/10/24 suppository melatonin 5 mg tablet 5 mg PO BEDTIME Sleep 11/20/22 12/10/24 oxycodone 5 mg tablet 5 mg PO Q6H PRN Pain (Scale Score 11/20/22 12/10/24 4-6) cholecalciferol (vitamin D3) 1,250 1,250 mcg PO WE 11/22/24 12/10/24 mcg (50,000 unit) capsule cyanocobalamin (vitamin B-12) 1,000 mcg PO DAILY 11/22/24 12/10/24 1,000 mcg tablet epinephrine 0.3 mg/0.3 mL 0.3 mg IM Q5M PRN Anaphylaxis 11/22/24 12/10/24 injection, auto-injector (EpiPen) ergocalciferol (vitamin D2) 1,250 1,250 mcg PO WE@0900 11/22/24 12/10/24 mcg (50,000 unit) capsule folic acid 1 mg tablet 1 mg PO DAILY 11/22/24 12/10/24 glucagon 1 mg/0.2 mL subcutaneous 1 mg subcut Q15M PRN low BS 11/22/24 12/10/24 solution (Gvoke) naloxone 0.4 mg/mL injection 0.4 mg subcut Q2M PRN Anaphylaxis 11/22/24 12/10/24 solution naloxone 4 mg/actuation nasal spray 4 mg intranasal Q2M PRN overdose 11/22/24 12/10/24 thiamine HCl (vitamin B1) 100 mg 100 mg PO DAILY 11/22/24 12/10/24 tablet carvedilol 3.125 mg tablet 3.125 mg PO BID 12/10/24 12/10/24 ergocalciferol (vitamin D2) 1,250 1,250 mcg PO QMONTH 12/10/24 12/10/24 mcg (50,000 unit) capsule (Vitamin D2) insulin glargine 100 unit/mL (3 1 unit subcut BEDTIME 12/10/24 12/10/24 mL) subcutaneous pen (Lantus Solostar U-100 Insulin) vit B complex and vit C 1 tab PO DAILY 12/10/24 12/10/24 no.24-ferrous fum 66 mg-folic 1,000 mcg tablet (Nephron FA) Previous Rx's ?Medication ?Instructions ?Recorded levothyroxine 25 mcg tablet 25 mcg PO DAILY@0600 #90 tabs 11/25/24 Allergies Allergy/AdvReac Type Severity Reaction Status Date / Time No Known Allergies Allergy Verified 12/10/24 17:12 [facility] Past Medical History Medical History Hypernatremia Vitamin D deficiency Hyperkalemia Hyperparathyroidism Dysphagia Hyperlipemia Hypertension Major depressive disorder Urine retention Systolic CHF Dementia Benign prostate hyperplasia Nicotine dependence Constipation Osteoarthritis Anemia Peripheral vascular disease Atrial fibrillation Gastrointestinal hemorrhage End stage renal disease on dialysis Hepatitis C COPD (chronic obstructive pulmonary disease) Cellulitis Streptococcal sepsis, unspecified Bacteremia Septic shock Sepsis Diabetes mellitus type 1 Hypertensive cardiopathy ESRD (end stage renal disease) on dialysis Social History Social History Household Members: Other Household Members Other:: [facility] Housing: Jail Unable to assess alcohol history related to: Unable to respond Alcohol intake: never Patient Tobacco Use Status: Former Tobacco user Tobacco use type: Cigarette Second Hand Smoke Exposure: No Advance Directives Date on File: 06/22/22 service: No Current occupational status: disabled Physical Exam ED Vital Signs: Vital Signs - 24 hr 12/10/24 18:43 Temperature 93.9 F L Pulse Rate 82 Respiratory Rate 18 Blood Pressure 168/97 H Pulse Oximetry 99 Oxygen Delivery Method Room Air BMI result Body Mass Index 20.8 Vital signs revealed hypothermia and hypotension Exam: General: Lethargic, is answering questions appropriately Head: Normocephalic, atraumatic EENT: PERRL, Lids normal, sclera normal, conjunctiva normal, nose normal , ears normal, throat without erythema or exudates Neck: Supple, no adenopathy Lung: breath sounds symmetric, no wheezing, rales or rhonchi Chest: symmetric movement, nontender Heart: regular rate and rhythm, normal S1, S2 no murmurs or rubs Abdomen: soft, non-tender, nondistended, normal bowel sounds Back: no vertebral tenderness, no CVAT Extremities: Patient has an AV fistula to the left arm which has a large of bulging area which unclear if this is chronic or new, there is a puncture site which is actively bleeding. Both upper extremities are cool to the touch, patient has radial pulses bilaterally obtained by Doppler. Neuro: Lethargic, oriented to person and to place, slurred speech, cranial nerves intact, moves all extremities symmetrically Psych: Pleasant, cooperative Medications Administered Generic Name Dose Route Start Last Admin Trade Name Freq PRN Reason Stop Dose Admin Hydromorphone HCl 0.25 mg 12/10/24 21:43 12/11/24 16:26 Hydromorphone Hcl 0.5 Mg/0.5 Ml Syringe IVPUSH 0.25 mg Q4H PRN Administration Pain, Severe (Pain Scale 7-10) Protocol Insulin Human Lispro 0 unit 12/11/24 07:30 12/11/24 16:25 Insulin Lispro 100 Unit/Ml 3 Ml Vial SUBCUT Not Given [facility] Protocol Oxycodone HCl 5 mg 12/10/24 21:43 12/11/24 17:22 Oxycodone Hcl Immed Release 5 Mg Tablet PO 5 mg Q6H PRN Administration Pain, Moderate(Pain Scale 4-6) Sodium Chloride 3 ml 12/11/24 00:00 12/11/24 16:26 0.9 % Sodium Chloride Flush 3 Ml Syringe IVFLUSH 3 ml [facility] Administration Discontinued Medications Generic Name Dose Route Start Last Admin Trade Name Freq PRN Reason Stop Dose Admin Dextrose 25 gm 12/10/24 18:26 12/10/24 18:00 Dextrose 50 % 25 Gm/50 Ml Syringe IVPUSH 12/10/24 18:27 25 gm ONCE ONE Administration Lactated Ringer's 1,000 mls @ 999 mls/hr 12/10/24 17:39 12/10/24 20:05 Lr IV 12/10/24 18:39 Infused .Q1H1M STA Infusion Phytonadione 10 mg/ Sodium 51 mls @ 51 mls/hr 12/10/24 22:30 12/11/24 00:09 Chloride IV 12/10/24 23:29 Infused ONCE ONE Infusion Medical Decision Making Medical Decision Making MDM Narrative: 64-year-old male with a PMH significant for?ESRD on HD /, type I brittle diabetes, NSTEMI 11/2022, HLD, COPD, BPH, CHF, seizure disorder, anemia of chronic disease, chronic thrombocytopenia, hepatitis C, unspecified dementia, mood disorder, among others who presents to the ED from [facility] for evaluation bleeding from his dialysis fistula. The patient had dialysis today and apparently was sent back to his SNF with a dressing over his dialysis fistula site and it was still bleeding. The paramedics report that the patient had a small bleed and I applied a tourniquet and the patient was transported to the emergency department. Here in the emergency department there was a medical dressing over the fistula puncture site but the patient was bleeding through the dressing and there was a large towel over the dressing site which also was soaked through with blood. The patient was somnolent in his point of care glucose was 52. Initial rectal temperature was 93.4 degrees F. how long can you leave a dialysis clamp on a AV fistula. Physical examination did reveal a bleeding puncture site in the AV fistula, AV fistula also has a bulge to it which may be chronic. Patient's extremities were cool but I was able to obtain radial pulses bilaterally using Doppler. vital signs revealed hypotension 64/47 and hypothermia 93.9 degrees F. patient was legthragic wiht slow slurred speech. There was active bleeding from the left AV fistula puncture site. Differential diagnosis: ?Includes but is not limited to hypoglycemia, hypothermia secondary to hypoglycemia, anemia secondary to bleeding AV fistula, electrolyte abnormalities Course: 19:20 My independent interpretation patient's laboratory evaluation is as follows: H&H is low 6.4 and 19.4. This has compared to an H&H of 10.6 and 32.2 from 11/25/2024 and 7.6 and 23.6 from 11/24/2024. This is the patient's lowest H&H documented at this facility. PTT elevated 78.4. PT and INR elevated 14.6 and 1.3. Sodium low 133. BUN and creatinine elevated 27 and 2.25. COVID-19, influenza and RSV tests were negative. His hypoglycemia was treated with 1 amp of D50 IV push.The patient's hypothermia, most likely caused by his hypoglycemia, was treated with a Alie Hugger with improvement of his temperature. Given his low H&H , I suspect that he did has significant blood loss from the AV fistula puncture site. A figure of 8 suture was placed by me over the puncture site stop the bleeding. A pressure dressing was applied for 20 minutes after the puncture site was sutured closed and there was no active bleeding. the patient had bilateral radial pulses found by me using a Doppler device. The figure of 8 sutures should be removed in 7-10 days. Given his significant blood loss, I ordered1 unit of packed red blood cells to be transfused. I did discuss the patient's admission over tiger text with the covering hospitalist, Dr. Mukherjee and the patient was admitted for further treatment. Admission/Observation Consideration of admission/observation: Escalation of care including admission/observation considered (Yes) Consult Healthcare Provider Management of the patient was discussed with: Hospitalist () Lab Data MDM Lab Attestation statement: I reviewed the patient's lab results. 12/11/24 06:27 12/11/24 06:27 Labs: Lab Results 12/10/24 12/10/24 12/10/24 Range/Units 17:31 17:47 18:16 WBC 3.7 L (4.8-10.8) X10*3/uL RBC 2.30 L D (4.60-5.80) X10*6/uL Hgb 6.4 L* D (14.0-18.0) g/dl Hct 19.4 L* D (42.0-52.0) % MCV 84.3 (80.0-98.0) fL MCH 27.8 (27.0-33.0) pg MCHC 33.0 (31.0-36.0) g/dl RDW 18.8 H (11.0-16.0) % Plt Count 41 L (160-400) X10*3/uL MPV TNP Immature Gran % (Auto) 0.8 H (0.0-0.4) % Neut % (Auto) 56.0 (45-73) % Lymph % (Auto) 37.8 (20-40) % [place] % (Auto) 3.8 (2-11) % Eos % (Auto) 1.6 (0-4) % Baso % (Auto) 0.0 (0-2) % Lymph # (Auto) 1.4 (1.2-4.9) X10*3/uL [place] # (Auto) 0.1 (0.1-1.2) X10*3/uL Eos # (Auto) 0.1 (0.0-0.4) X10*3/uL Baso # (Auto) 0.0 (0.0-0.2) X10*3/uL Abs Immat Gran (auto) 0.03 (0.00-0.03) X10*3/uL Absolute Neuts (auto) 2.1 (2.0-8.3) x10*3/uL Absolute Nucleated RBC 0.000 (0.0-0.012) X10*3/uL Nucleated RBC % (auto) 0.0 (0.0-0.2) /100WBC Absolute Retic 0.007 L (0.026-0.095) X10*6/uL Percent Retic 0.3 L (0.5-1.8) % Immature Retic Fraction 3.7 (2.3-13.4) % Retic Hgb Equivalent 34.1 (30.0-35.0) pg Hold Purple Top SEE NOTE PT 14.6 H (10.9-12.4) SEC INR 1.3 H (0.9-1.1) APTT 74.8 H* D (26.0-36.8) SEC Fibrinogen 145 L (259-690) MG/DL Sodium 133 L (135-145) mmol/L Potassium 4.0 (3.3-5.1) mmol/L Chloride 98 (96-108) mmol/L Carbon Dioxide 28 (22-29) mmol/L Anion Gap 11 L (12-20) BUN 27 H (9-16) mg/dL Creatinine 2.25 H (0.5-1.4) mg/dL Estim Creat Clear Calc 30.7 Estimated GFR 30 POC Glucose 52 L* (60-115) mg/dL Random Glucose 137 H (60-115) mg/dL Lactic Acid 3.0 H* (0.5-2.0) mmol/L Calcium 7.4 L (8.4-10.2) mg/dL Magnesium 1.9 (1.6-2.6) mg/dL Total Bilirubin 1.0 (0.0-1.0) mg/dL AST 459 H (5-37) U/L ALT 352 H (0-40) U/L Alkaline Phosphatase 427 H (39-117) U/L Lactate Dehydrogenase 517 H (118-273) U/L Troponin I High Sens 13.9 (<3.5-35.0) ng/L Total Protein 4.0 L (6.5-8.0) g/dL Albumin 1.9 L (3.5-5.0) g/dL Lipase 7 L (8-78) U/L TSH 13.77 H (0.32-4.0) uIU/mL Ethyl Alcohol < 10 mg/dL Influenza Type A (PCR) NEGATIVE (Negative) Influenza Type B (PCR) NEGATIVE (Negative) RSV RNA Qual (PCR) NEGATIVE (Negative) SARS-CoV-2 RNA (RT-PCR) NEGATIVE (Negative) Blood Type B Positive Antibody Screen NEGATIVE Crossmatch See Detail 12/10/24 Range/Units 18:31 WBC (4.8-10.8) X10*3/uL RBC (4.60-5.80) X10*6/uL Hgb (14.0-18.0) g/dl Hct (42.0-52.0) % MCV (80.0-98.0) fL MCH (27.0-33.0) pg MCHC (31.0-36.0) g/dl RDW (11.0-16.0) % Plt Count (160-400) X10*3/uL MPV Immature Gran % (Auto) (0.0-0.4) % Neut % (Auto) (45-73) % Lymph % (Auto) (20-40) % [place] % (Auto) (2-11) % Eos % (Auto) (0-4) % Baso % (Auto) (0-2) % Lymph # (Auto) (1.2-4.9) X10*3/uL [place] # (Auto) (0.1-1.2) X10*3/uL Eos # (Auto) (0.0-0.4) X10*3/uL Baso # (Auto) (0.0-0.2) X10*3/uL Abs Immat Gran (auto) (0.00-0.03) X10*3/uL Absolute Neuts (auto) (2.0-8.3) x10*3/uL Absolute Nucleated RBC (0.0-0.012) X10*3/uL Nucleated RBC % (auto) (0.0-0.2) /100WBC Absolute Retic (0.026-0.095) X10*6/uL Percent Retic (0.5-1.8) % Immature Retic Fraction (2.3-13.4) % Retic Hgb Equivalent (30.0-35.0) pg Hold Purple Top PT (10.9-12.4) SEC INR (0.9-1.1) APTT (26.0-36.8) SEC Fibrinogen (259-690) MG/DL Sodium (135-145) mmol/L Potassium (3.3-5.1) mmol/L Chloride (96-108) mmol/L Carbon Dioxide (22-29) mmol/L Anion Gap (12-20) BUN (9-16) mg/dL Creatinine (0.5-1.4) mg/dL Estim Creat Clear Calc Estimated GFR POC Glucose 95 (60-115) mg/dL Random Glucose (60-115) mg/dL Lactic Acid (0.5-2.0) mmol/L Calcium (8.4-10.2) mg/dL Magnesium (1.6-2.6) mg/dL Total Bilirubin (0.0-1.0) mg/dL AST (5-37) U/L ALT (0-40) U/L Alkaline Phosphatase (39-117) U/L Lactate Dehydrogenase (118-273) U/L Troponin I High Sens (<3.5-35.0) ng/L Total Protein (6.5-8.0) g/dL Albumin (3.5-5.0) g/dL Lipase (8-78) U/L TSH (0.32-4.0) uIU/mL Ethyl Alcohol mg/dL Influenza Type A (PCR) (Negative) Influenza Type B (PCR) (Negative) RSV RNA Qual (PCR) (Negative) SARS-CoV-2 RNA (RT-PCR) (Negative) Blood Type Antibody Screen Crossmatch Independent Interpretation I performed an independent interpretation of an: EKG Interpretation: My independent interpretation of the patient's 12 EKG done on 12/10/2024 at 18:25 hours is as follows: Normal sinus rhythm with a rate of 83, normal CA interval, prolonged QRS duration of 102 milliseconds, prolonged QTC of 486 milliseconds, artifact in the baseline, inverted T-waves V1 through V4, no ST segment elevation, no ST segment depression, low voltage in the limb leads. Compared to EKG dated 11/24/2024 at 08:58 hours, inverted T-waves were old, low voltage in the limb leads or old as well. External Record Review External record reviewed: Inpatient record Chronic Conditions Patient?s care impacted by: Diabetes and Other (End-stage renal disease) Procedures Procedure Narrative Procedure Narrative: Left AV fistula bleeding puncture site, figure of 8 stitch The patient's left AV fistula did have a puncture site which was actively bleeding. A manual blood pressure cuff was obtained and used as a tourniquet to stop the bleeding. The puncture site was prepped with Betadine then anesthetized with 1% lidocaine. Using a 5.0 nylon suture I created a [id number] stitch which the closed the puncture site. The tourniquet cuff was deflated and the patient had no oozing or bleeding. A dialysis clamp was applied to the site for 20 minutes and when removed there was still no bleeding. Ultrasound-guided IV 20 gauge 1.16 in IV placed in right upper extremity. Adequate blood return, flushes well secured with Tegaderm. Performed by Tere Geronimo PA-C EJ/Peripheral Line Neck R: Time Out Performed: No Skin Cleansed in Sterile Fashion: Yes Size (gauge): 18 IV Secured and Dressing Applied: Yes Patient Tolerated Procedure: well Critical Care Time Critical Care Time Critical Care Time: Yes Total Critical Care Time: 60 Attestation: Critical Care: The patient was critically ill with a high probability of imminent or life threatening deterioration. I spent greater than 30 minutes of discontinuous time evaluating the patient,delivering critical care at the bedside, discussing and evaluating pertinent data with consultants. Critical care time does not include time spent performing separately billable procedures or teaching. Total time spent performing critical care was 60 minutes. Discharge Plan Discharge Clinical Impression: Hemorrhage of arteriovenous fistula, Hypoglycemia, Hypothermia, Acute blood loss anemia, Acute hypotension, Sutured skin wound Patient Disposition: Admitted As Inpatient Interventions: Admission Worksheet (ED) Last Done: 12/11/24 00:20 Discharge Date/Time: 12/11/24 01:18
--- NOTE | 2024-12-10 17:40 | ECG_ITS ---
Test Reason : HYPOTENSIVE, AMS Blood Pressure : */* mmHG Vent. Rate : 83 BPM Atrial Rate : * BPM P-R Int : * ms QRS Dur : 102 ms QT Int : 414 ms P-R-T Axes : * 0 114 degrees QTcB Int : 486 ms Normal sinus rhythm Low voltage QRS ST & T wave abnormality, consider anterior ischemia Prolonged QT Abnormal ECG When compared with ECG of 24-Nov-2024 08:58, Left anterior fascicular block is no longer Present Nonspecific T wave abnormality no longer evident in Inferior leads Referred By: Tom Triana Electronically Signed By: Ubaldo Ashton
[2024-12-10] MEDS: Lactated Ringers 1,000 ML 999 ML IV (17:50)
[2024-12-10 17:52] LABS: MANUAL DIFF FLAG NO
--- NOTE | 2024-12-10 17:59 | PC.NURSE ---
Provider in the room to try to control bleed from pt fistula. Provider did stitch over the bleed. Pt hard stick and after multiple attempts at IV provider was able to get IV in R neck. Pt POC 52. Pt recieved oral glucose and dextrose IV. Pt hypotensive and recieved IV fluids as ordered. Rectal temp obtained.
[2024-12-10] MEDS: Dextrose 50 % 25 GM/50 ML SYRINGE IVPUSH (18:00)
[2024-12-10 18:01] LABS: INTERNATIONAL NORM RATIO 1.3 (0.9-1.1); Prothrombin Time 14.6 SEC (10.9-12.4)
[2024-12-10 18:11] LABS: Ethanol < 10 mg/dL
[2024-12-10 18:12] LABS: Eosinophils Absolute Auto 0.1 X10*3/uL (0.0-0.4); Eosinophils Percent Auto 1.6 % (0-4); Imm Gran Abs Auto 0.03 X10*3/uL (0.00-0.03); Imm Gran Pct Auto 0.8 % (0.0-0.4); SCAN SMEAR FLAG 1
[2024-12-10 18:14] LABS: Lymphocytes Absolute Auto 1.4 X10*3/uL (1.2-4.9); Lymphocytes Percent Auto 37.8 % (20-40); Mean Corpuscular Hemoglobin 27.8 pg (27.0-33.0); Mean Corpuscular Volume 84.3 fL (80.0-98.0); Monocytes Absolute Auto 0.1 X10*3/uL (0.1-1.2); Monocytes Percent Auto 3.8 % (2-11); Neutrophils Absolute Auto 2.1 x10*3/uL (2.0-8.3); Red Cell Distribution Width 18.8 % (11.0-16.0); White Blood Count 3.7 X10*3/uL (4.8-10.8)
[2024-12-10 18:15] LABS: Hematocrit 19.4 % (42.0-52.0); PLT ABN DIST 1; Platelet Count 41 X10*3/uL (160-400)
--- NOTE | 2024-12-10 18:15 | PC.NURSE ---
md able to obtain radial pulses via doppler pt was put on a bear hugger do to rectal temp being low pt is pale in appearance, sclera pale as well, oral mucous membrane pale and dry, skin very cool to touch, bleeding controlled to the left fistula at this time, md put stitches and a fistula clamp applied
[2024-12-10 18:16] LABS: Hemoglobin 6.4 g/dl (14.0-18.0)
[2024-12-10 18:21] LABS: Troponin-I High Sensitivity 13.9 ng/L (<3.5-35.0)
[2024-12-10 18:24] LABS: Partial Thromboplastin Time 74.8 SEC (26.0-36.8)
[2024-12-10 18:29] LABS: Influenza A PCR NEGATIVE (Negative); Influenza B PCR NEGATIVE (Negative); Resp Syncy Virus RNA Qual PCR NEGATIVE (Negative); SARS COV2 PCR INHOUSE NEGATIVE (Negative)
[2024-12-10 18:36] LABS: Glucose, Whole Blood 95 mg/dL (60-115)
[2024-12-10 18:39] LABS: Glucose, Whole Blood 52 mg/dL (60-115)
[2024-12-10 18:42] LABS: Alanine Aminotransferase 352 U/L (0-40); Albumin Level 1.9 g/dL (3.5-5.0); Alkaline Phosphatase 427 U/L (39-117); Anion Gap 11 (12-20); Aspartate Amino Transferase 459 U/L (5-37); Blood Urea Nitrogen 27 mg/dL (9-16); Calcium 7.4 mg/dL (8.4-10.2); Carbon Dioxide 28 mmol/L (22-29); Chloride 98 mmol/L (96-108); Creatinine Clr Calc Pharmacy 30.7; Estimated Glomerular Filt Rate 30; Glucose Random 137 mg/dL (60-115); Lipase 7 U/L (8-78); Magnesium 1.9 mg/dL (1.6-2.6); Sodium 133 mmol/L (135-145)
--- OUTSIDE RECORDS SUMMARY | 2024-12-10 18:56 | XMS_ITS | Clinical Summary ---
Author Organization [facility] Address [address] [facility] [address] [place] [address] Phone Care Team Providers Care Wood Panel Inspector Name Role Phone Jailene Wilde NP Primary Care Provider [phone] Medications ferrous sulfate 325 (65 Fe) MG EC tablet Take 1 tablet by mouth 1 (one) time each day Active minoxidil (LONITEN) 2.5 MG tablet Take 2 tablets by mouth in the morning and 2 tablets in the evening. 0 Active oxyCODONE (ROXICODONE) 5 MG immediate release tablet Take 1 tablet by mouth in the morning and 1 tablet in the evening. 0 Active tamsulosin (FLOMAX) 0.4 MG 24 hr capsule Take 1 capsule by mouth 1 (one) time each day 8 Active gabapentin (NEURONTIN) 100 MG capsule Take 3 capsules (300 mg total) by mouth 1 (one) time each day 90 capsule 5 2 Active Nutritional Supplements (Boost Glucose Control) liquid Take 240 mL by mouth 2 (two) times a day 0 Active docusate sodium (COLACE) 150 MG/15ML oral liquid Take 100 mg by mouth 2 (two) times a day if needed 1 Active Nutritional Supplements (nepro/carb steady) Take 237 mL by mouth in the morning and 237 mL in the evening. 0 Active cloNIDine 0.3 MG/24HR patch weekly Apply 1 patch topically 1 (one) time per week 0 Active Melatonin 5 MG tablet Take 5 mg by mouth 1 (one) time each day 2 Active mirtazapine (REMERON) 15 MG tablet Take 15 mg by mouth 1 (one) time each day 0 Active polyethylene glycol (GLYCOLAX) 17 GM/SCOOP powder Take 17 g by mouth 1 (one) time each day if needed (constipation) 476 g 2 Active atorvastatin (LIPITOR) 80 MG tablet Take 1 tablet (80 mg total) by mouth 1 (one) time each day 30 tablet 1 2 Active carvedilol (COREG) 25 MG tablet Take 1 tablet (25 mg total) by mouth in the morning and 1 tablet (25 mg total) in the evening. 60 tablet 1 2 Active amLODIPine (NORVASC) 10 MG tablet Take 1 tablet (10 mg total) by mouth in the morning. 30 tablet 1 2 Active DULoxetine (CYMBALTA) [address] capsule Take 1 capsule (60 mg total) by mouth 1 (one) time each day 30 capsule 1 2 Active traZODone (DESYREL) 50 MG tablet Take 1 tablet (50 mg total) by mouth 1 (one) time each day 30 tablet 1 2 Active Encounters Date Type Department Care Team Description 12/08/2024 Orders Only [facility] [address] [phone] Joe Brand MD 12/08/2024 Treatment [facility] [address] [phone] Joe Brand MD End stage renal disease; Dependence on renal dialysis 09/24/2024 Treatment [facility] [address] [phone] Joe Brand MD End stage renal disease; Dependence on renal dialysis 09/22/2024 Treatment [facility] [address] [phone] Joe Brand MD End stage renal disease; Dependence on renal dialysis from Last 3 Months Family History Medical History Relation Comments Cancer Mother Diabetes Sibling Relation Status Comments Father Alive Mother Sibling Social History Tobacco Use Types Packs/Day Years Used Date Smoking Tobacco: Every Day Cigarettes Sex and Gender Information Value Date Recorded Sex Assigned at Not on file Legal Sex Male 4:52 PM EST Gender Identity Not on file Sexual Orientation Not on file Last Filed Vital Signs Vital Sign Reading Time Taken Comments Blood Pressure 168/94 12/10/2018 12:00 PM EDT Pulse 66 12/10/2018 12:00 PM EDT Temperature - - Respiratory Rate - - Oxygen Saturation 100% 10/30/2018 12:00 PM EDT Inhaled Oxygen Concentration - - Weight 102 kg (225 lb) 12/10/2018 12:00 PM EDT Height 180.3 cm (5' 11 ) 12/10/2018 12:00 PM EDT Body Mass Index 31.38 12/10/2018 12:00 PM EDT Plan of Treatment Health Maintenance Due Date Last Done Comments Hepatitis B Vaccine (1 of 5 - Risk Dialysis 4-dose series) 1982 Colorectal Cancer Screening: Annual FOBT 2011 Colorectal Cancer Screening: Colonoscopy 2011 Colorectal Cancer Screening: Sigmoidoscopy 2011 Pneumococcal Vaccine: 50+ Ye ars (3 of 3 - PCV) 11/29/2018 11/29/2017, 11/28/2013, 06/26/2010 Diabetes: Ophthalmology Exam 08/22/2020 Diabetes: Pedal Pulse Checked 08/22/2020 Diabetes: Sensory Foot Exam 08/22/2020 Diabetes: Visual Foot Exam 08/22/2020 Diabetes: Hemoglobin A1C 10/28/2024 025, 05/19/2024, 05/01/2022, Additional history exists Influenza Vaccine (Season Ended) 2025 04/25/20 Pneumococcal Vaccine: Peds ( 0 to 5 Years) and At-Risk Patients (6 to 49 Years) Discontinued 11/29/2017, 11/28/2013, 06/26/2010 Procedures Procedure Name Priority Date/Time Associated Diagnosis Comments FERRITIN Routine 12/08/2024 3:00 AM EDT PROTEIN, TOTAL, SERUM Routine 12/08/2024 3:00 AM EDT TRANSFERRIN SATURATION Routine 3:00 AM EDT KT/V NATURAL LOG, URR (HC) Routine 12/08/2024 3:00 AM EDT MAGNESIUM Routine 12/08/2024 3:00 AM EDT LIH (HC) Routine 12/08/2024 3:00 AM EDT ELECTROLYTE PANEL Routine 12/08/2024 3:0 0 AM EDT GLUCOSE, RANDOM Routine 12/08/2024 3:00 AM EDT CREATININE, SERUM Routine 12/08/2024 3:0 0 AM EDT LACTATE DEHYDROGENASE Routine 12/08/2024 3:00 AM EDT BUN/CREATININE RATIO Routine 12/08/2024 3:00 AM EDT BILIRUBIN, TOTAL Routine 12/08/2024 3:00 AM EDT ALT Routine 12/08/2024 3:00 AM EDT AST Routine 12/08/2024 3:00 AM EDT ALKALINE PHOSPHATASE Routine 12/08/2024 3:00 AM EDT CALCIUM PHOSPHORUS PRODUCT, ADJUSTED (HC) Routine 12/08/2024 3:00 AM EDT CBC AND DIFFERENTIAL Routine 12/08/2024 3:00 AM EDT TRANSFERRIN SATURATION Routine 3:00 AM EST PROTEIN, TOTAL, SERUM Routine 09/24/2024 3:00 AM EST MAGNESIUM Routine 09/24/2024 3:00 AM EST ELECTROLYTE PANEL Routine 09/24/2024 3:0 0 AM EST LIH (HC) Routine 09/24/2024 3:00 AM EST LACTATE DEHYDROGENASE Routine 09/24/2024 3:00 AM EST CREATININE, SERUM Routine 09/24/2024 3:0 0 AM EST GLUCOSE, RANDOM Routine 09/24/2024 3:00 AM EST BILIRUBIN, TOTAL Routine 09/24/2024 3:00 AM EST AST Routine 09/24/2024 3:00 AM EST ALT Routine 09/24/2024 3:00 AM EST CALCIUM PHOSPHORUS PRODUCT, ADJUSTED (HC) Routine 09/24/2024 3:00 AM EST ALKALINE PHOSPHATASE Routine 09/24/2024 3:00 AM EST FERRITIN Routine 09/24/2024 3:00 AM EST KT/V NATURAL LOG, URR (HC) Routine 09/24/2024 3:00 AM EST CBC AND DIFFERENTIAL Routine 09/24/2024 3:00 AM EST LIH (HC) Routine 09/17/2024 3:00 AM EST POTASSIUM Routine 09/17/2024 3:00 AM EST HEMOGLOBIN Routine 09/17/2024 3:00 AM EST HEMOGLOBIN A1C Routine 07/30/2024 3:00 AM EST from Last 3 Months or Most Recently Relevant to Health Maintenance Results * LI (12/08/2024 3:00 AM EDT) Only the most recent of3 resultswithin the time period is included. Lipemia Normal Normal [facility] Icterus Normal Normal [facility] Hemolysis Normal Normal [facility] 12/08/2024 3:00 AM EDT 12/09/2024 2:07 PM EDT us Joe Brand MD LAB [id number] ICITED RESULTS Final Result Performing Organization Address [facility] [address] [facility] Co de Phone Number [facility]PS [facility] [address] [place] [address] * (ABNORMAL) Calcium Phosphorus Product, Adjusted (12/08/2024 3:00 AM EDT) Only the most recent of2 resultswithin the time period is included. Albumin 2.3(L) 3.6 - 5.4 g/dL [facility] Calcium 7.6(L) 8.6 - 10.3 mg/dL [facility] Phosphorus, Serum 4.7 2.5 - 5.0 mg/dL [facility] Ca*PO4 35.7 <55.0 mg2/dL2 [facility] Calcium, Adjusted Total 9.0 8.6 - 10.3 mg/dL [facility] CA*PO4 CORRCTD 42.3 <55.0 mg2/dL2 [facility] 12/08/2024 3:00 AM EDT 12/09/2024 2:07 PM EDT us Joe Brand MD LAB [id number] ICITED RESULTS Final Result Performing Organization Address [facility] de Phone Number [facility]PS [facility] [address] [place] [address] * BUN/CREATININE RATIO (12/08/2024 3:00 AM EDT) BUN/Creatinine Ratio 13.8 <=23.0 [facility] 12/08/2024 3:00 AM EDT 12/09/2024 2:07 PM EDT us Joe Brand MD LAB [id number] ICITED RESULTS Final Result Performing Organization Address [facility] [address]/[facility] Co de Phone Number [facility] [address] [place] [address] * (ABNORMAL) TSAT (12/08/2024 3:00 AM EDT) Only the most recent of2 resultswithin the time period is included. Pathologist [facility] Iron 48(L) 65 - 175 ug/dL [facility] Transferrin 25(L) 215 - 365 mg/dL [facility] TIBC 35(L) 211 - 406 ug/dL [facility] Iron Saturation (TSat) 137(H) 22 - 52 % [facility] 12/08/2024 3:00 AM EDT 12/09/2024 2:07 PM EDT Joe Brand MD LAB BLOOD ORDERABLES Final Resul t [facility] [address] [place] [address] * (ABNORMAL) CBC and Differential (12/08/2024 3:00 AM EDT) Only the most recent of2 resultswithin the time period is included. Pathologist [facility] DIFFERENTIAL MANUAL, 2 Not Indicated [facility] White Blood Cells 4.4 4.2 - 9.1 K/uL [facility] RBC 3.36(L) 4.63 - 6.08 M/uL [facility] Hgb 9.1(L) 13.7 - 17.5 g/dL [facility] Hemoglobin x 3 27.3(L) 41.1 - 52.5 g/dL [facility] Hematocrit 29.4(L) 40.1 - 51.0 % [facility] MCV 87.5 79.0 - 92.2 fL [facility] MCH 27.1 25.7 - 32.2 pg [facility] MCHC 31.0(L) 32.3 - 36.5 g/dL [facility] RDW 18.7(H) 11.6 - 14.4 % [facility] Platelets 42(L) 163 - 337 K/uL [facility] Neutrophils Relative 68.7(H) 34.0 - 67.9 % [facility] Lymphocytes Relative 24.9 21.8 - 53.1 % [facility] Monocytes 4.1(L) 5.3 - 12.2 % [facility] Eosinophils Relative 1.4 0.8 - 7.0 % [facility] Basophils Relative 0.2 0.2 - 1.2 % [facility] Immature Granulocytes 0.7 0.0 - 1.0 % [facility] Slide Review Performed [facility] Comment:Platelet count verif ied using smear estimate 12/08/2024 3:00 AM EDT 12/09/2024 1:33 PM EDT us Joe Brand MD LAB BLOOD ORDERABLES Final Resul t Performing Organization Address [facility] de Phone Number [facility] [address] [place] [address] * (ABNORMAL) ALT (12/08/2024 3:00 AM EDT) Only the most recent of2 resultswithin the time period is included. ALT (SGPT) 291(H) 10 - 49 U/L [facility] 12/08/2024 3:00 AM EDT 12/09/2024 2:07 PM EDT us Joe Brand MD LAB BLOOD ORDERABLES Final Resul t Performing Organization Address [facility] de Phone Number [facility] [address] [place] [address] * (ABNORMAL) AST (12/08/2024 3:00 AM EDT) Only the most recent of2 resultswithin the time period is included. AST (SGOT) 244(H) <34 U/L [facility] 12/08/2024 3:00 AM EDT 12/09/2024 2:07 PM EDT us Joe Brand MD LAB BLOOD ORDERABLES Final Resul t Performing Organization Address [facility] de Phone Number [facility] [address] [place] [address] * (ABNORMAL) Protein, total (12/08/2024 3:00 AM EDT) Only the most recent of2 resultswithin the time period is included. Total Protein 4.5(L) 6.4 - 8.9 g/dL [facility] 12/08/2024 3:00 AM EDT 12/09/2024 2:07 PM EDT us Joe Brand MD LAB BLOOD ORDERABLES Final Resul t Performing Organization Address [facility] [address]/[facility] Co de Phone Number [facility] [address] [place] [address] * (ABNORMAL) Alkaline phosphatase (12/08/2024 3:00 AM EDT) Only the most recent of2 resultswithin the time period is included. Alkaline Phosphatase 393(H) 46 - 116 U/L [facility] 12/08/2024 3:00 AM EDT 12/09/2024 2:07 PM EDT us Joe Brand MD LAB BLOOD ORDERABLES Final Resul t Performing Organization Address [facility] de Phone Number [facility] [address] [place] [address] * Magnesium (12/08/2024 3:00 AM EDT) Only the most recent of2 resultswithin the time period is included. Magnesium 2.2 1.9 - 2.7 mg/dL [facility] 12/08/2024 3:00 AM EDT 12/09/2024 2:07 PM EDT us Joe Brand MD LAB BLOOD ORDERABLES Final Resul t Performing Organization Address [facility] de Phone Number [facility] [address] [place] [address] * (ABNORMAL) Lactate dehydrogenase (12/08/2024 3:00 AM EDT) Only the most recent of2 resultswithin the time period is included. LDH 276(H) 120 - 246 U/L [facility] 12/08/2024 3:00 AM EDT 12/09/2024 2:07 PM EDT us Joe Brand MD LAB BLOOD ORDERABLES Final Resul t Performing Organization Address [facility] de Phone Number [facility] [address] [place] [address] * (ABNORMAL) Glucose, random (12/08/2024 3:00 AM EDT) Only the most recent of2 resultswithin the time period is included. Glucose 199(H) 70 - 99 mg/dL [facility] Comment: ADA guidelines outline the following fasting glucose ranges: Normal: ? <100 Prediabetes: 100-125 Diabetes: ? >125 12/08/2024 3:00 AM EDT 12/09/2024 2:07 PM EDT us Joe Brand MD LAB BLOOD ORDERABLES Final Resul t Performing Organization Address [facility] de Phone Number [facility] [address] [place] [address] * (ABNORMAL) Ferritin (12/08/2024 3:00 AM EDT) Only the most recent of2 resultswithin the time period is included. Ferritin 4,110(H) 22 - 322 ng/mL [facility] 12/08/2024 3:00 AM EDT 12/09/2024 2:07 PM EDT us Joe Brand MD LAB BLOOD ORDERABLES Final Resul t Performing Organization Address [facility] de Phone Number [facility] [address] [place] [address] * (ABNORMAL) Creatinine, serum (12/08/2024 3:00 AM EDT) Only the most recent of2 resultswithin the time period is included. Creatinine 3.56(H) 0.70 - 1.30 mg/dL [facility] 12/08/2024 3:00 AM EDT 12/09/2024 2:07 PM EDT us Joe Brand MD LAB BLOOD ORDERABLES Final Resul t Performing Organization Address [facility] [address] [facility] Co de Phone Number [facility] [address] [place] [address] * Bilirubin, total (12/08/2024 3:00 AM EDT) Only the most recent of2 resultswithin the time period is included. Total Bilirubin 0.5 0.3 - 1.2 mg/dL [facility] 12/08/2024 3:00 AM EDT 12/09/2024 2:07 PM EDT Joe Brand MD LAB BLOOD ORDERABLES Final Resul t Performing Organization Address [facility] Co de Phone Number [facility] [address] [place] [address] * (ABNORMAL) Electrolyte panel (12/08/2024 3:00 AM EDT) Only the most recent of2 resultswithin the time period is included. Sodium 130(L) 136 - 145 mEq/L [facility] Potassium 4.5 3.4 - 5.0 mEq/L [facility] Chloride 95(L) 98 - 107 mEq/L [facility] Bicarbonate (CO2) 27 21 - 31 mEq/L [facility] Anion Gap 8 3 - 14 mEq/L [facility] 12/08/2024 3:00 AM EDT 12/09/2024 2:07 PM EDT Joe Brand MD LAB BLOOD ORDERABLES Final Resul t Performing Organization Address [facility] [address]/[facility] de Phone Number [facility] [address] [place] [address] * (ABNORMAL) Kt/V Natural Log, URR (09/24/2024 3:00 AM EST) Treatment Time 222 min [facility] Pre-Weight, lb 75.2 kg [facility] Post-Weight, lb 73.3 kg [facility] Ultrafiltration Rate 7 <=13 mL/kg/hr [facility] Comment: Recommend achieving Ultrafiltration Rate (UFR) <=10 mL/kg/hr References: Vida ROTHMAN et al. Kidney Int. 2010; 79(2):250-257 BUN 20 7 - 25 mg/dL [facility] BUN Post Dialysis 8 7 - 25 mg/dL [facility] UREA REDUCTION RATIO (%) 60(L) >=65 % [facility] Kt/V Natural Log 1.06(L) >=1.2 [facility] 09/24/2024 3:00 AM EST 09/25/2024 12:01 PM EST Joe Brand MD LAB [id number] ICITED RESULTS Final Result Performing Organization Address [facility] [address]/[facility] de Phone Number [facility] [address] [place] [address] * (ABNORMAL) Hemoglobin (09/17/2024 3:00 AM EST) Hgb 10.0(L) 13.7 - 17.5 g/dL [facility] Hemoglobin x 3 30.0(L) 41.1 - 52.5 g/dL [facility] 09/17/2024 3:00 AM EST 09/18/2024 12:06 PM EST Joe Brand MD LAB BLOOD ORDERABLES Final Resul t Performing Organization Address [facility] de Phone Number [facility] [address] [place] [address] * Potassium (09/17/2024 3:00 AM EST) Potassium 3.7 3.4 - 5.0 mEq/L [facility] 09/17/2024 3:00 AM EST 09/18/2024 12:36 PM EST Joe Brand MD LAB BLOOD ORDERABLES Final Resul t Performing Organization Address [facility] de Phone Number [facility] [address] [place] [address] * (ABNORMAL) Hemoglobin A1c (07/30/2024 3:00 AM EST) Hemoglobin A1C 6.4(H) <5.7 % [facility] Comment: Methodology: Enzymatic HbA1c (NGSP %) ?Suggested Diagnosis >6.4% ? Diabetic 5.7-6.4% ?Pre-Diabetic <5.7% ? Non-Diabetic Diabetic Glucose Control Evaluation: Therapeutic action suggested at >8.0% ADA recommends a glycemic goal of <7.0% 07/30/2024 3:00 AM EST 08/03/2024 2:01 PM EST us Joe Brand MD LAB BLOOD ORDERABLES Final Resul t [facility] [address] [place] [address] from Last 3 Months or Most Recently Relevant to Health Maintenance Insurance [address] [place] [address] ([id number]) ALBERTO SPARKS [id number] [facility] ([id number]) ALBERTO SPARKS [phone] Care Teams Wood Panel Inspector Relationship Specialty Start Date End Date Jailene Wilde NP [facility] [address] [place] [address] PCP - General 08/01/20
[2024-12-10 19:27] LABS: Glucose, Whole Blood 76 mg/dL (60-115)
[2024-12-10 20:19] LABS: Reflex Lactate? Lactic Acid Added
[2024-12-10 20:41] LABS: Glucose, Whole Blood 89 mg/dL (60-115)
[2024-12-10 21:17] LABS: ~Lactic Acid-LAB USE ONLY 3.2 mmol/L (0.5-2.0)
[2024-12-10 21:25] LABS: Fibrinogen 145 MG/DL (259-690)
[2024-12-10 21:27] LABS: Immature Retic Fraction 3.7 % (2.3-13.4); Retic HGB Equivalent 34.1 pg (30.0-35.0); Reticulocyte Percent 0.3 % (0.5-1.8)
[2024-12-10 21:33] LABS: Lactate Dehydrogenase 517 U/L (118-273); Reticulocytes Absolute 0.007 X10*6/uL (0.026-0.095)
--- NOTE | 2024-12-10 21:51 | PM.IMHP ---
History of Present Illness Date of Service: 12/10/24 Attending physician on admission: Rich Mukherjee Chief Complaint: bleeding fistula Pt is a 64-year-old male with a PMH significant for?ESRD on HD /, type I brittle diabetes, NSTEMI 11/2022, HLD, COPD, BPH, CHF, seizure disorder, anemia of chronic disease, chronic thrombocytopenia, hepatitis C, unspecified dementia, mood disorder, among others who presents to the ED from [facility] due to bleeding from his AV fistula. The bleeding has been unable to be controlled since having dialysis. EMS applied a pressure dressing to try to control the bleed. In the ED the provider was able to place a [id number] suture she stopped the bleeding. Patient denies any trauma to the area aside from dialysis. He was also found to be hypoglycemic and hypothermic. He denies any chest pain, shortness of breath, cough, nausea, vomiting, abdominal pain, urinary frequency, urgency or dysuria. Review of Systems Constitutional: Constitutional: Denies chills, Denies fatigue, Denies fever(s) and Denies headache(s) Eyes: Eyes: Denies change in vision and Denies photophobia ENT: Denies headache(s), Denies nasal congestion, Denies nasal discharge and Denies sore throat Cardiovascular: Cardiovascular: Denies chest pain, Denies syncope, Denies rapid heart rate, Denies leg edema and Denies dyspnea Respiratory: Respiratory: Denies chest congestion, Denies cough, Denies dyspnea and Denies wheezing Gastrointestinal: Gastrointestinal: Denies abdominal pain, Denies diarrhea, Denies nausea and Denies vomiting Genitourinary: Genitourinary: Denies dysuria, Denies urinary frequency, Denies urinary hesitancy, Denies urinary incontinence and Denies urinary urgency Musculoskeletal: Musculoskeletal: Denies myalgias Integumentary/Breasts: Skin/Breast: Denies rash Neurologic: Denies confusion, Denies syncope and Denies headache(s) Psychiatric: Psychiatric: Denies confusion Endocrine: Endocrine: Denies fatigue Hematologic/Lymphatic: Hematologic/Lymphatic: Reports easy bleeding and Denies easy bruising Allergic/Immunologic: Allergic/Immunologic: Denies wheezing [facility] Medical History Hypernatremia Vitamin D deficiency Hyperkalemia Hyperparathyroidism Dysphagia Hyperlipemia Hypertension Major depressive disorder Urine retention Systolic CHF Dementia Benign prostate hyperplasia Nicotine dependence Constipation Osteoarthritis Anemia Peripheral vascular disease Atrial fibrillation Gastrointestinal hemorrhage End stage renal disease on dialysis Hepatitis C COPD (chronic obstructive pulmonary disease) Cellulitis Streptococcal sepsis, unspecified Bacteremia Septic shock Sepsis Diabetes mellitus type 1 Hypertensive cardiopathy ESRD (end stage renal disease) on dialysis Social History Household Members: Other Household Members Other:: [facility] Housing: [facility] Unable to assess alcohol history related to: Unable to respond Alcohol intake: never Patient Tobacco Use Status: Current everyday Tobacco user Tobacco use type: Cigarette Second Hand Smoke Exposure: No Advance Directives: Yes Advance Directives on File: Yes Advance Directives Date on File: 06/22/22 Do you have a plan to hurt others: No Plan service: No Current occupational status: disabled Meds Allergies Allergy/AdvReac Type Severity Reaction Status Date / Time No Known Allergies Allergy Verified 12/10/24 17:12 Active Medications: Current Medications Acetaminophen (Acetaminophen 325 Mg Tablet) 650 mg PO Q6H PRN PRN Reason: Pain, Mild 1-3,fever,headache Calcium Carbonate (Calcium Carbonate 750 Mg Tab.Chew) 750 mg PO Q4H PRN PRN Reason: Heartburn Dextrose (Dextrose 50 % 25 Gm/50 Ml Syringe) 25 gm IVPUSH Q15M PRN; Protocol PRN Reason: per Hypoglycemia Standing Ord. Glucose (Glucose Gel 15 Gm Gel..Gram.) 15 gm PO Q15M PRN; Protocol PRN Reason: per Hypoglycemia Standing Ord. Hydromorphone HCl (Hydromorphone Hcl 0.5 Mg/0.5 Ml Syringe) 0.25 mg IVPUSH Q4H PRN; Protocol PRN Reason: Pain, Severe (Pain Scale 7-10) Insulin Human Lispro (Insulin Lispro 100 Unit/Ml 3 Ml Vial) 0 unit SUBCUT QIDACHS [facility]; Protocol Magnesium Hydroxide (Milk Of Magnesia 30 Ml Oral.Susp) 30 ml PO DAILY PRN PRN Reason: Constipation Melatonin (Melatonin 3 Mg Tablet) 6 mg PO BEDTIME PRN PRN Reason: Insomnia Ondansetron HCl (Ondansetron Hcl 4 Mg/2 Ml Vial) 4 mg IVPUSH Q8H PRN PRN Reason: Nausea and Vomiting Oxycodone HCl (Oxycodone Hcl Immed Release 5 Mg Tablet) 5 mg PO Q6H PRN PRN Reason: Pain, Moderate(Pain Scale 4-6) Sodium Chloride (0.9 % Sodium Chloride Flush 3 Ml Syringe) 3 ml IVFLUSH QSHIFT [facility] Home Medications ?Medication ?Instructions ?Recorded ?Confirmed ?Last Taken ?Type duloxetine 60 mg capsule,delayed 60 mg PO DAILY 06/17/22 12/10/24 11/21/24 History release insulin lispro 100 unit/mL See Protocol subcut TIDAC 06/17/22 12/10/24 11/21/24 History subcutaneous solution (Humalog U-100 Insulin) mirtazapine 15 mg tablet 15 mg PO BEDTIME 06/17/22 12/10/24 11/21/24 History tamsulosin 0.4 mg capsule 1 cap PO BEDTIME 06/17/22 12/10/24 11/21/24 History acetaminophen 325 mg tablet 650 mg PO Q6H PRN Fever Or Pain 11/20/22 12/10/24 07/01/24 History acetaminophen 650 mg rectal 650 mg MO Q6H PRN Fever Or Pain 11/20/22 12/10/24 Unknown History suppository melatonin 5 mg tablet 5 mg PO BEDTIME Sleep 11/20/22 12/10/24 11/21/24 History oxycodone 5 mg tablet 5 mg PO Q6H PRN Pain (Scale Score 11/20/22 12/10/24 11/20/24 History 4-6) cholecalciferol (vitamin D3) 1,250 1,250 mcg PO WE 11/22/24 12/10/24 11/01/24 History mcg (50,000 unit) capsule cyanocobalamin (vitamin B-12) 1,000 mcg PO DAILY 11/22/24 12/10/24 11/21/24 History 1,000 mcg tablet epinephrine 0.3 mg/0.3 mL 0.3 mg IM Q5M PRN Anaphylaxis 11/22/24 12/10/24 Unknown History injection, auto-injector (EpiPen) ergocalciferol (vitamin D2) 1,250 1,250 mcg PO WE@0900 11/22/24 12/10/24 11/18/24 History mcg (50,000 unit) capsule folic acid 1 mg tablet 1 mg PO DAILY 11/22/24 12/10/24 11/21/24 History glucagon 1 mg/0.2 mL subcutaneous 1 mg subcut Q15M PRN low BS 11/22/24 12/10/24 Unknown History solution (Gvoke) naloxone 0.4 mg/mL injection 0.4 mg subcut Q2M PRN Anaphylaxis 11/22/24 12/10/24 Unknown History solution naloxone 4 mg/actuation nasal spray 4 mg intranasal Q2M PRN overdose 11/22/24 12/10/24 Unknown History thiamine HCl (vitamin B1) 100 mg 100 mg PO DAILY 11/22/24 12/10/24 11/21/24 History tablet carvedilol 3.125 mg tablet 3.125 mg PO BID 12/10/24 12/10/24 Unknown History ergocalciferol (vitamin D2) 1,250 1,250 mcg PO QMONTH 12/10/24 12/10/24 Unknown History mcg (50,000 unit) capsule (Vitamin D2) insulin glargine 100 unit/mL (3 1 unit subcut BEDTIME 12/10/24 12/10/24 Unknown History mL) subcutaneous pen (Lantus Solostar U-100 Insulin) vit B complex and vit C 1 tab PO DAILY 12/10/24 12/10/24 Unknown History no.24-ferrous fum 66 mg-folic 1,000 mcg tablet (Nephron FA) Physical Exam Vital Signs and Narrative: Vital Signs: Last Vital Signs Temp 93.6 F L 12/10/24 20:23 Pulse 82 12/10/24 20:23 Resp 20 12/10/24 20:23 BP 116/82 12/10/24 20:23 Pulse Ox 100 12/10/24 20:23 O2 Del Method Room Air 12/10/24 20:54 BMI result Body Mass Index 20.8 General: AOx3, no acute distress. slow response to questions. Resp: CTA bilaterally CVS: S1, S2, RRR GI: +BS, NT, no distention Skin: Warm, dry Neuro: Cranial nerves II-XII grossly intact bilaterally. Motor grossly intact bilaterally. lethargic, slurred speech. Extremities: No LE edema. L AV fistula not actively bleeding. bilateral radial pulses present. Psych: Appropriate affect Const: General: No confusion Orientation/consciousness: No confusion Eyes: Direct Ophthalmoscopy: No photophobia Neuro: General: No confusion Results Labs 12/10/24 17:47 12/10/24 18:16 Labs: Laboratory Results - last 24 hr 12/10/24 12/10/24 12/10/24 17:31 17:47 18:16 MCV 84.3 MCH 27.8 MCHC 33.0 RDW 18.8 H Plt Count 41 L MPV TNP Immature Gran % (Auto) 0.8 H Neut % (Auto) 56.0 Lymph % (Auto) 37.8 Ponce % (Auto) 3.8 Eos % (Auto) 1.6 Baso % (Auto) 0.0 Lymph # (Auto) 1.4 Ponce # (Auto) 0.1 Eos # (Auto) 0.1 Baso # (Auto) 0.0 Abs Immat Gran (auto) 0.03 Absolute Neuts (auto) 2.1 Absolute Nucleated RBC 0.000 Nucleated RBC % (auto) 0.0 Absolute Retic 0.007 L Percent Retic 0.3 L Immature Retic Fraction 3.7 Retic Hgb Equivalent 34.1 Hold Purple Top SEE NOTE PT 14.6 H INR 1.3 H APTT 74.8 H* D Fibrinogen 145 L Anion Gap 11 L Estim Creat Clear Calc 30.7 Estimated GFR 30 POC Glucose 52 L* Random Glucose 137 H Lactic Acid 3.0 H* Lactic Acid F/U @ 2Hr Calcium 7.4 L Magnesium 1.9 Total Bilirubin 1.0 AST 459 H ALT 352 H Alkaline Phosphatase 427 H Lactate Dehydrogenase 517 H Total Protein 4.0 L Albumin 1.9 L Lipase 7 L Ethyl Alcohol < 10 Influenza Type A (PCR) NEGATIVE Influenza Type B (PCR) NEGATIVE RSV RNA Qual (PCR) NEGATIVE SARS-CoV-2 RNA (RT-PCR) NEGATIVE Blood Type B Positive Antibody Screen NEGATIVE Crossmatch See Detail 12/10/24 12/10/24 12/10/24 18:31 19:22 20:22 MCV MCH MCHC RDW Plt Count MPV Immature Gran % (Auto) Neut % (Auto) Lymph % (Auto) Ponce % (Auto) Eos % (Auto) Baso % (Auto) Lymph # (Auto) Ponce # (Auto) Eos # (Auto) Baso # (Auto) Abs Immat Gran (auto) Absolute Neuts (auto) Absolute Nucleated RBC Nucleated RBC % (auto) Absolute Retic Percent Retic Immature Retic Fraction Retic Hgb Equivalent Hold Purple Top PT INR APTT Fibrinogen Anion Gap Estim Creat Clear Calc Estimated GFR POC Glucose 95 76 89 Random Glucose Lactic Acid Lactic Acid F/U @ 2Hr Calcium Magnesium Total Bilirubin AST ALT Alkaline Phosphatase Lactate Dehydrogenase Total Protein Albumin Lipase Ethyl Alcohol Influenza Type A (PCR) Influenza Type B (PCR) RSV RNA Qual (PCR) SARS-CoV-2 RNA (RT-PCR) Blood Type Antibody Screen Crossmatch 12/10/24 20:49 MCV MCH MCHC RDW Plt Count MPV Immature Gran % (Auto) Neut % (Auto) Lymph % (Auto) Ponce % (Auto) Eos % (Auto) Baso % (Auto) Lymph # (Auto) Ponce # (Auto) Eos # (Auto) Baso # (Auto) Abs Immat Gran (auto) Absolute Neuts (auto) Absolute Nucleated RBC Nucleated RBC % (auto) Absolute Retic Percent Retic Immature Retic Fraction Retic Hgb Equivalent Hold Purple Top PT INR APTT Fibrinogen Anion Gap Estim Creat Clear Calc Estimated GFR POC Glucose Random Glucose Lactic Acid Lactic Acid F/U @ 2Hr 3.2 H* Calcium Magnesium Total Bilirubin AST ALT Alkaline Phosphatase Lactate Dehydrogenase Total Protein Albumin Lipase Ethyl Alcohol Influenza Type A (PCR) Influenza Type B (PCR) RSV RNA Qual (PCR) SARS-CoV-2 RNA (RT-PCR) Blood Type Antibody Screen Crossmatch Assessment and Plan (1) ABLA (acute blood loss anemia): Status: Acute (2) Hypothermia: Status: Acute (3) Hypoglycemia: Status: Acute (4) Lactic acidosis: Status: Acute (5) Elevated LFTs: Status: Acute Plan Pt is a 64-year-old male with a PMH significant for?ESRD on HD T//Sat, type I brittle diabetes, NSTEMI 11/2022, HLD, COPD, BPH, CHF, seizure disorder, anemia of chronic disease, chronic thrombocytopenia, hepatitis C, unspecified dementia, mood disorder, among others who presents to the ED from [facility] due to bleeding from his AV fistula. 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 - discussed with on-call clinical education coordinator Dr Jarvis who suggested cryoprecipitate, FFP and vit K, all given - check PT/INR in AM - ?concern for TTP/HUS, check LOU TS 13 - hematology/nephro consult Acute blood loss anemia secondary to bleeding AV fistula - hypothermia and hypoglycemia secondary to acute blood loss - hemoglobin 6.4, hematocrit 19.4, given 1 unit PRBC in ED - platelets 41, around baseline - kailyn hugger for hypothermia until temp sustained at greater than 97.0 - vascular consult - monitor on tele - follow CBC Lactic acidosis - lactic acid 3.0 secondary to demand ischemia Elevated LFTs - AST 459, ALT 352, ALP 427 - secondary to demand ischemia, ?DIC, also patient with hepatitis-C, unclear if treated - monitor LFTs ESRD on HD T// - nephro consult Type 1 brittle diabetes - hypoglycemic in ED, given dextrose 25 g x 1 - POC Q2H x6H - diabetic diet - sliding scale insulin, avoid insulin if blood sugar under 200 HLD - continue statin Hypothyroid - check TSH - continue levothyroxine Mood disorder - continue home meds BPH - continue tamsulosin Full code VTE prophylaxis: Pneumoboots due to thrombocytopenia and acute blood loss Patient with acute blood loss anemia requiring admission for at least 2 midnight stay for blood transfusion, monitoring and further evaluation. Quality Stroke Does the patient have a stroke diagnosis?: No VTE Prior VTE?: No VTE Risk Level:: Medical - moderate - high VTE Device Contraindication: N/A - Device Ordered VTE Drug Contraindication: Treatment Not Indicated
--- NOTE | 2024-12-10 21:58 | PHA.MEDREC ---
Addendum entered by Gia Ohara RPh 12/10/24 22:03: reviewed by [facility]. Original Note: Pharmacy Consult ? Medication Reconciliation Pharmacy has completed the medication reconciliation. Utilized list from [facility] to confirm med list
--- NOTE | 2024-12-10 22:00 | PC.NURSE ---
blood completed, notified Dr. Mukherjee, no knew orders.
--- NOTE | 2024-12-10 22:39 | PC.NURSE ---
unable to obtain labs as ordered, multiple attempts however unsuccessful, covering provider made aware, phlebotomy notified
[2024-12-10] MEDS: HYDROmorphone HCl 0.5 MG/0.5 ML SYRINGE 0.25 MG IVPUSH (22:47)
[2024-12-10 22:51] LABS: Reflex Lactate? 2 Y
[2024-12-10] MEDS: Phytonadione (Vit K1) 10 MG in 0.9 % Sodium Chloride 50 ML 51 MG IV (23:07)
[2024-12-10 23:10] LABS: Thyroid Stimulating Hormone 13.77 uIU/mL (0.32-4.0)
--- NOTE | 2024-12-10 23:10 | PC.NURSE ---
pt place in hospital bed, medicated per sep.
--- NOTE | 2024-12-10 23:23 | PC.NURSE ---
pt only had on line, ALBERTO Rocha working on ultra sound IV, Notified DR. Mukherjee
--- NOTE | 2024-12-10 23:36 | PC.NURSE ---
pt difficult stick, attempting to get a second line by ultra sound.
--- NOTE | 2024-12-10 23:41 | PC.NURSE ---
ultra sound Iv placed, lactic collected and sent.
[2024-12-10 23:56] LABS: ~Lactic Acid-LAB USE ONLY 1.8 mmol/L (0.5-2.0)
[2024-12-11] VITALS (13 sets, daily range): BP systolic 123–178; BP diastolic 86–106; PULSE 82–93; RESP 12–21; TEMP 35.7–36.9; O2SAT 92–99; BMI 21.1
[2024-12-11] MEDS: oxyCODONE HCl Immed Release 5 MG TABLET PO ×4 (00:08→23:23)
[2024-12-11 00:20] LABS: Glucose, Whole Blood 79 mg/dL (60-115)
[2024-12-11 00:47] LABS: Haptoglobin < 8 mg/dL (40-268)
[2024-12-11 01:48] LABS: Glucose, Whole Blood 79 mg/dL (60-115)
[2024-12-11] MEDS: HYDROmorphone HCl 0.5 MG/0.5 ML SYRINGE 0.25 MG IVPUSH ×5 (02:26→21:03)
[2024-12-11 03:58] LABS: Glucose, Whole Blood 145 mg/dL (60-115)
[2024-12-11 06:58] LABS: MANUAL DIFF FLAG NO
[2024-12-11 07:06] LABS: INTERNATIONAL NORM RATIO 1.1 (0.9-1.1); Prothrombin Time 12.5 SEC (10.9-12.4)
[2024-12-11 07:09] LABS: Eosinophils Percent Auto 0.4 % (0-4); Hematocrit 22.7 % (42.0-52.0); Hemoglobin 7.8 g/dl (14.0-18.0); Imm Gran Abs Auto 0.03 X10*3/uL (0.00-0.03); Imm Gran Pct Auto 0.6 % (0.0-0.4); Lymphocytes Percent Auto 21.6 % (20-40); Mean Corpuscular HGB Conc 34.4 g/dl (31.0-36.0); Mean Corpuscular Hemoglobin 28.4 pg (27.0-33.0); Mean Corpuscular Volume 82.5 fL (80.0-98.0); Mean Platelet Volume 10.4 fL (9.4-12.4); Monocytes Absolute Auto 0.2 X10*3/uL (0.1-1.2); Monocytes Percent Auto 4.7 % (2-11); Neutrophils Absolute Auto 3.4 x10*3/uL (2.0-8.3); Neutrophils Percent Auto 72.7 % (45-73); Red Blood Count 2.75 X10*6/uL (4.60-5.80); Red Cell Distribution Width 17.3 % (11.0-16.0); White Blood Count 4.7 X10*3/uL (4.8-10.8)
[2024-12-11 07:10] LABS: Platelet Count 63 X10*3/uL (160-400)
[2024-12-11 07:15] LABS: Alanine Aminotransferase 333 U/L (0-40); Albumin Level 2.3 g/dL (3.5-5.0); Alkaline Phosphatase 415 U/L (39-117); Anion Gap 14 (12-20); Aspartate Amino Transferase 332 U/L (5-37); Bilirubin Total 0.8 mg/dL (0.0-1.0); Blood Urea Nitrogen 34 mg/dL (9-16); Calcium 7.7 mg/dL (8.4-10.2); Carbon Dioxide 29 mmol/L (22-29); Chloride 97 mmol/L (96-108); Creatinine Clr Calc Pharmacy 26.9; Estimated Glomerular Filt Rate 25; Glucose Random 78 mg/dL (60-115); Potassium 4.8 mmol/L (3.3-5.1); Sodium 135 mmol/L (135-145); Total Protein 4.7 g/dL (6.5-8.0)
[2024-12-11 07:16] LABS: Glucose, Whole Blood 71 mg/dL (60-115)
[2024-12-11] MEDS: 0.9 % Sodium Chloride Flush 3 ML SYRINGE IVFLUSH ×4 (07:58→21:03)
--- NOTE | 2024-12-11 08:00 | HO.PM.IMPN ---
Subjective Subjective Date of Service: 12/11/24 Interval History: f/u on bleeding from fistula cite, concern for DIC no active bleed Physical Exam Vital Signs: Vital Signs: Last Vital Signs Temp 97.7 F 12/11/24 07:09 Pulse 92 12/11/24 07:09 Resp 16 12/11/24 07:09 BP 130/89 12/11/24 07:09 Pulse Ox 95 12/11/24 07:09 O2 Del Method Room Air 12/11/24 07:09 BMI result Body Mass Index 21.1 Const: Other: General: AO X 3, no acute distress Resp: CTA bilateral CVS: S1,S2,RRR GI: +BS, NT, no distention Skin: No rash Neuro: motor grossly intact Psych: appropriate affect Objective Data Active Medications Acetaminophen (Acetaminophen 325 Mg Tablet) 650 mg PO Q6H PRN PRN Reason: Pain, Mild 1-3,fever,headache Calcium Carbonate (Calcium Carbonate 750 Mg Tab.Chew) 750 mg PO Q4H PRN PRN Reason: Heartburn Dextrose (Dextrose 50 % 25 Gm/50 Ml Syringe) 25 gm IVPUSH Q15M PRN; Protocol PRN Reason: per Hypoglycemia Standing Ord. Glucose (Glucose Gel 15 Gm Gel..Gram.) 15 gm PO Q15M PRN; Protocol PRN Reason: per Hypoglycemia Standing Ord. Hydromorphone HCl (Hydromorphone Hcl 0.5 Mg/0.5 Ml Syringe) 0.25 mg IVPUSH Q4H PRN; Protocol PRN Reason: Pain, Severe (Pain Scale 7-10) Last Admin: 12/11/24 02:26 Dose: 0.25 mg Documented By: JENNIFER Insulin Human Lispro (Insulin Lispro 100 Unit/Ml 3 Ml Vial) 0 unit SUBCUT [facility]; Protocol Last Admin: 12/11/24 07:49 Dose: Not Given Documented By: VERO Non-Admin Reason: No Insulin Coverage Magnesium Hydroxide (Milk Of Magnesia 30 Ml Oral.Susp) 30 ml PO DAILY PRN PRN Reason: Constipation Melatonin (Melatonin 3 Mg Tablet) 6 mg PO BEDTIME PRN PRN Reason: Insomnia Ondansetron HCl (Ondansetron Hcl 4 Mg/2 Ml Vial) 4 mg IVPUSH Q8H PRN PRN Reason: Nausea and Vomiting Oxycodone HCl (Oxycodone Hcl Immed Release 5 Mg Tablet) 5 mg PO Q6H PRN PRN Reason: Pain, Moderate(Pain Scale 4-6) Last Admin: 12/11/24 00:08 Dose: 5 mg Documented By: KEZIA Sodium Chloride (0.9 % Sodium Chloride Flush 3 Ml Syringe) 3 ml IVFLUSH QSHIFT [facility] Last Admin: 12/11/24 07:58 Dose: 3 ml Documented By: VERO Labs 12/12/24 06:28 12/12/24 06:28 Labs: Laboratory Results - last 24 hr 12/10/24 12/10/24 12/10/24 17:31 17:47 18:16 MCV 84.3 MCH 27.8 MCHC 33.0 RDW 18.8 H Plt Count 41 L MPV TNP Immature Gran % (Auto) 0.8 H Neut % (Auto) 56.0 Lymph % (Auto) 37.8 [place] % (Auto) 3.8 Eos % (Auto) 1.6 Baso % (Auto) 0.0 Lymph # (Auto) 1.4 [place] # (Auto) 0.1 Eos # (Auto) 0.1 Baso # (Auto) 0.0 Abs Immat Gran (auto) 0.03 Absolute Neuts (auto) 2.1 Absolute Nucleated RBC 0.000 Nucleated RBC % (auto) 0.0 Absolute Retic 0.007 L Percent Retic 0.3 L Immature Retic Fraction 3.7 Retic Hgb Equivalent 34.1 Hold Purple Top SEE NOTE PT 14.6 H INR 1.3 H APTT 74.8 H* D Fibrinogen 145 L Anion Gap 11 L Estim Creat Clear Calc 30.7 Estimated GFR 30 POC Glucose 52 L* Random Glucose 137 H Haptoglobin Lactic Acid 3.0 H* Lactic Acid F/U @ 2Hr Lactic Acid F/U @ 4Hr Calcium 7.4 L Magnesium 1.9 Total Bilirubin 1.0 AST 459 H ALT 352 H Alkaline Phosphatase 427 H Lactate Dehydrogenase 517 H Total Protein 4.0 L Albumin 1.9 L Lipase 7 L TSH 13.77 H Ethyl Alcohol < 10 Influenza Type A (PCR) NEGATIVE Influenza Type B (PCR) NEGATIVE RSV RNA Qual (PCR) NEGATIVE SARS-CoV-2 RNA (RT-PCR) NEGATIVE Blood Type B Positive Antibody Screen NEGATIVE SRUTHI, Polyspecific Positive SRUTHI Work-up Crossmatch See Detail 12/10/24 12/10/24 12/10/24 18:31 19:22 20:22 MCV MCH MCHC RDW Plt Count MPV Immature Gran % (Auto) Neut % (Auto) Lymph % (Auto) [place] % (Auto) Eos % (Auto) Baso % (Auto) Lymph # (Auto) [place] # (Auto) Eos # (Auto) Baso # (Auto) Abs Immat Gran (auto) Absolute Neuts (auto) Absolute Nucleated RBC Nucleated RBC % (auto) Absolute Retic Percent Retic Immature Retic Fraction Retic Hgb Equivalent Hold Purple Top PT INR APTT Fibrinogen Anion Gap Estim Creat Clear Calc Estimated GFR POC Glucose 95 76 89 Random Glucose Haptoglobin Lactic Acid Lactic Acid F/U @ 2Hr Lactic Acid F/U @ 4Hr Calcium Magnesium Total Bilirubin AST ALT Alkaline Phosphatase Lactate Dehydrogenase Total Protein Albumin Lipase TSH Ethyl Alcohol Influenza Type A (PCR) Influenza Type B (PCR) RSV RNA Qual (PCR) SARS-CoV-2 RNA (RT-PCR) Blood Type Antibody Screen SRUTHI, Polyspecific Positive SRUTHI Work-up Crossmatch 12/10/24 12/10/24 12/10/24 20:49 22:48 23:37 MCV MCH MCHC RDW Plt Count MPV Immature Gran % (Auto) Neut % (Auto) Lymph % (Auto) [place] % (Auto) Eos % (Auto) Baso % (Auto) Lymph # (Auto) [place] # (Auto) Eos # (Auto) Baso # (Auto) Abs Immat Gran (auto) Absolute Neuts (auto) Absolute Nucleated RBC Nucleated RBC % (auto) Absolute Retic Percent Retic Immature Retic Fraction Retic Hgb Equivalent Hold Purple Top PT INR APTT Fibrinogen Anion Gap Estim Creat Clear Calc Estimated GFR POC Glucose Random Glucose Haptoglobin < 8 L Lactic Acid Lactic Acid F/U @ 2Hr 3.2 H* Lactic Acid F/U @ 4Hr 1.8 Calcium Magnesium Total Bilirubin AST ALT Alkaline Phosphatase Lactate Dehydrogenase Total Protein Albumin Lipase TSH Ethyl Alcohol Influenza Type A (PCR) Influenza Type B (PCR) RSV RNA Qual (PCR) SARS-CoV-2 RNA (RT-PCR) Blood Type Antibody Screen SRUTHI, Polyspecific NEGATIVE Positive SRUTHI Work-up TNP Crossmatch 12/11/24 12/11/24 12/11/24 00:16 01:44 03:53 MCV MCH MCHC RDW Plt Count MPV Immature Gran % (Auto) Neut % (Auto) Lymph % (Auto) [place] % (Auto) Eos % (Auto) Baso % (Auto) Lymph # (Auto) [place] # (Auto) Eos # (Auto) Baso # (Auto) Abs Immat Gran (auto) Absolute Neuts (auto) Absolute Nucleated RBC Nucleated RBC % (auto) Absolute Retic Percent Retic Immature Retic Fraction Retic Hgb Equivalent Hold Purple Top PT INR APTT Fibrinogen Anion Gap Estim Creat Clear Calc Estimated GFR POC Glucose 79 79 145 H Random Glucose Haptoglobin Lactic Acid Lactic Acid F/U @ 2Hr Lactic Acid F/U @ 4Hr Calcium Magnesium Total Bilirubin AST ALT Alkaline Phosphatase Lactate Dehydrogenase Total Protein Albumin Lipase TSH Ethyl Alcohol Influenza Type A (PCR) Influenza Type B (PCR) RSV RNA Qual (PCR) SARS-CoV-2 RNA (RT-PCR) Blood Type Antibody Screen SRUTHI, Polyspecific Positive SRUTHI Work-up Crossmatch 12/11/24 12/11/24 06:27 07:08 MCV 82.5 MCH 28.4 MCHC 34.4 RDW 17.3 H Plt Count 63 L D MPV 10.4 Immature Gran % (Auto) 0.6 H Neut % (Auto) 72.7 Lymph % (Auto) 21.6 [place] % (Auto) 4.7 Eos % (Auto) 0.4 Baso % (Auto) 0.0 Lymph # (Auto) 1.0 L [place] # (Auto) 0.2 Eos # (Auto) 0.0 Baso # (Auto) 0.0 Abs Immat Gran (auto) 0.03 Absolute Neuts (auto) 3.4 Absolute Nucleated RBC 0.000 Nucleated RBC % (auto) 0.0 Absolute Retic Percent Retic Immature Retic Fraction Retic Hgb Equivalent Hold Purple Top PT 12.5 H INR 1.1 APTT Fibrinogen Anion Gap 14 Estim Creat Clear Calc 26.9 Estimated GFR 25 POC Glucose 71 Random Glucose 78 Haptoglobin Lactic Acid Lactic Acid F/U @ 2Hr Lactic Acid F/U @ 4Hr Calcium 7.7 L Magnesium Total Bilirubin 0.8 AST 332 H ALT 333 H Alkaline Phosphatase 415 H Lactate Dehydrogenase Total Protein 4.7 L Albumin 2.3 L Lipase TSH Ethyl Alcohol Influenza Type A (PCR) Influenza Type B (PCR) RSV RNA Qual (PCR) SARS-CoV-2 RNA (RT-PCR) Blood Type Antibody Screen SRUTHI, Polyspecific Positive SRUTHI Work-up Crossmatch Assessment and Plan (1) Acute blood loss anemia: Status: Acute Plan pt is a 64-year-old male with a PMH significant for?ESRD on HD //Sat, type I brittle diabetes, NSTEMI 11/2022, HLD, COPD, BPH, CHF, seizure disorder, anemia of chronic disease, chronic thrombocytopenia, hepatitis C, unspecified dementia, mood disorder, among others who presents to the ED from [facility] due to bleeding from his AV fistula. 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 discussed with on-call sql tech Dr Jarvis who suggested cryoprecipitate, FFP and vit K, all given check PT/INR in AM ?concern for TTP/HUS, check LOU TS 13 hematology/nephro consult pending Acute blood loss anemia secondary to bleeding AV fistula hypothermia and hypoglycemia secondary to acute blood loss hemoglobin 6.4, hematocrit 19.4, given 1 unit PRBC in ED, H/H has improved platelets is within baseline kailyn zacarias for hypothermia until temp sustained at greater than 97.0 vascular consult, nothing to do monitor on tele follow CBC Lactic acidosis lactic acid 3.0 secondary to demand ischemia Elevated LFTs AST 459, ALT 352, ALP 427 secondary to demand ischemia, ?DIC, also patient with hepatitis-C, unclear if treated monitor LFTs ESRD on HD // nephro consult Type 1 brittle diabetes hypoglycemic in ED, given dextrose 25 g x 1 POC Q2H x6H diabetic diet sliding scale insulin, avoid insulin if blood sugar under 200 HLD continue statin Hypothyroid check TSH continue levothyroxine Mood disorder continue home meds BPH continue tamsulosin Full code VTE prophylaxis: Pneumoboots due to thrombocytopenia and acute blood loss Patient with acute blood loss anemia requiring admission for at least 2 midnight stay for blood transfusion, monitoring and further evaluation. Quality Stroke Does the patient have a stroke diagnosis?: No VTE Prior VTE?: No VTE Risk Level:: Medical - moderate - high VTE Device Contraindication: N/A - Device Ordered VTE Drug Contraindication: Treatment Not Indicated
--- NOTE | 2024-12-11 08:58 | P.CONGS_ITS ---
History of Present Illness Consult details Consult date: 12/11/24 Reason for consult: other (Bleeding left upper extremity fistula) Narrative: 64-year-old gentleman end-stage renal disease presented yesterday to the emergency room with bleeding from his left upper extremity fistula. He has end- stage renal disease and is on a hemodialysis regimen of Saturday. Longstanding type 1 diabetic. He is currently at a shelter facility and they noticed that he had excessive bleeding post dialysis. He had suture placed in the emergency room to control bleeding and appears to be doing relatively well with that. This morning does not appear to have any bleeding from the fistula site. In addition he had a PTT of 74.8 with an INR of 1.3. He was subsequently given products and appears to be doing somewhat better this morning. Review of Systems 2 Review of Systems: Yes all other systems are reviewed and are negative Constitutional: Constitutional: Reports no additional constitutional complaints ENT: Reports Normal hearing present Cardiovascular: Cardiovascular: Denies chest pain, Denies chest pain at rest, Denies chest pain with activity and Denies pedal edema Respiratory: Respiratory: Denies cough Gastrointestinal: Gastrointestinal: Denies abdominal pain Musculoskeletal: Musculoskeletal: Denies abnormal gait, Denies muscle cramps and Denies radiating pain into limb Integumentary/Breasts: Skin/Breast: Denies skin ulcer and Denies wounds Neurologic: Reports Normal hearing present and Denies abnormal gait Psychiatric: Psychiatric: Reports no additional psychiatric complaints [facility] Past Medical History Medical History Hypernatremia Vitamin D deficiency Hyperkalemia Hyperparathyroidism Dysphagia Hyperlipemia Hypertension Major depressive disorder Urine retention Systolic CHF Dementia Benign prostate hyperplasia Nicotine dependence Constipation Osteoarthritis Anemia Peripheral vascular disease Atrial fibrillation Gastrointestinal hemorrhage End stage renal disease on dialysis Hepatitis C COPD (chronic obstructive pulmonary disease) Cellulitis Streptococcal sepsis, unspecified Bacteremia Septic shock Sepsis Diabetes mellitus type 1 Hypertensive cardiopathy ESRD (end stage renal disease) on dialysis Social History Social History Household Members: Other Household Members Other:: [facility] Housing: [facility] Unable to assess alcohol history related to: Unable to respond Alcohol intake: never Patient Tobacco Use Status: Former Tobacco user Tobacco use type: Cigarette Second Hand Smoke Exposure: No Advance Directives Date on File: 06/22/22 service: No Current occupational status: disabled Meds Allergies Allergy/AdvReac Type Severity Reaction Status Date / Time No Known Allergies Allergy Verified 12/10/24 17:12 Active Medications: Current Medications Acetaminophen (Acetaminophen 325 Mg Tablet) 650 mg PO Q6H PRN PRN Reason: Pain, Mild 1-3,fever,headache Calcium Carbonate (Calcium Carbonate 750 Mg Tab.Chew) 750 mg PO Q4H PRN PRN Reason: Heartburn Dextrose (Dextrose 50 % 25 Gm/50 Ml Syringe) 25 gm IVPUSH Q15M PRN; Protocol PRN Reason: per Hypoglycemia Standing Ord. Glucose (Glucose Gel 15 Gm Gel..Gram.) 15 gm PO Q15M PRN; Protocol PRN Reason: per Hypoglycemia Standing Ord. Hydromorphone HCl (Hydromorphone Hcl 0.5 Mg/0.5 Ml Syringe) 0.25 mg IVPUSH Q4H PRN; Protocol PRN Reason: Pain, Severe (Pain Scale 7-10) Last Admin: 12/11/24 08:44 Dose: 0.25 mg Insulin Human Lispro (Insulin Lispro 100 Unit/Ml 3 Ml Vial) 0 unit SUBCUT [facility]; Protocol Last Admin: 12/11/24 07:49 Dose: Not Given Magnesium Hydroxide (Milk Of Magnesia 30 Ml Oral.Susp) 30 ml PO DAILY PRN PRN Reason: Constipation Melatonin (Melatonin 3 Mg Tablet) 6 mg PO BEDTIME PRN PRN Reason: Insomnia Ondansetron HCl (Ondansetron Hcl 4 Mg/2 Ml Vial) 4 mg IVPUSH Q8H PRN PRN Reason: Nausea and Vomiting Oxycodone HCl (Oxycodone Hcl Immed Release 5 Mg Tablet) 5 mg PO Q6H PRN PRN Reason: Pain, Moderate(Pain Scale 4-6) Last Admin: 12/11/24 00:08 Dose: 5 mg Sodium Chloride (0.9 % Sodium Chloride Flush 3 Ml Syringe) 3 ml IVFLUSH [facility] Last Admin: 12/11/24 07:58 Dose: 3 ml Home Medications ?Medication ?Instructions ?Recorded ?Confirmed ?Last Taken ?Type duloxetine 60 mg capsule,delayed 60 mg PO DAILY 06/17/22 12/10/24 11/21/24 History release insulin lispro 100 unit/mL See Protocol subcut TIDAC 06/17/22 12/10/24 11/21/24 History subcutaneous solution (Humalog U-100 Insulin) mirtazapine 15 mg tablet 15 mg PO BEDTIME 06/17/22 12/10/24 11/21/24 History tamsulosin 0.4 mg capsule 1 cap PO BEDTIME 06/17/22 12/10/24 11/21/24 History acetaminophen 325 mg tablet 650 mg PO Q6H PRN Fever Or Pain 11/20/22 12/10/24 07/01/24 History acetaminophen 650 mg rectal 650 mg VA Q6H PRN Fever Or Pain 11/20/22 12/10/24 Unknown History suppository melatonin 5 mg tablet 5 mg PO BEDTIME Sleep 11/20/22 12/10/24 11/21/24 History oxycodone 5 mg tablet 5 mg PO Q6H PRN Pain (Scale Score 11/20/22 12/10/24 11/20/24 History 4-6) cholecalciferol (vitamin D3) 1,250 1,250 mcg PO WE 11/22/24 12/10/24 11/01/24 History mcg (50,000 unit) capsule cyanocobalamin (vitamin B-12) 1,000 mcg PO DAILY 11/22/24 12/10/24 11/21/24 History 1,000 mcg tablet epinephrine 0.3 mg/0.3 mL 0.3 mg IM Q5M PRN Anaphylaxis 11/22/24 12/10/24 Unknown History injection, auto-injector (EpiPen) ergocalciferol (vitamin D2) 1,250 1,250 mcg PO WE@0900 11/22/24 12/10/24 11/18/24 History mcg (50,000 unit) capsule folic acid 1 mg tablet 1 mg PO DAILY 11/22/24 12/10/24 11/21/24 History glucagon 1 mg/0.2 mL subcutaneous 1 mg subcut Q15M PRN low BS 11/22/24 12/10/24 Unknown History solution (Gvoke) naloxone 0.4 mg/mL injection 0.4 mg subcut Q2M PRN Anaphylaxis 11/22/24 12/10/24 Unknown History solution naloxone 4 mg/actuation nasal spray 4 mg intranasal Q2M PRN overdose 11/22/24 12/10/24 Unknown History thiamine HCl (vitamin B1) 100 mg 100 mg PO DAILY 11/22/24 12/10/24 11/21/24 History tablet carvedilol 3.125 mg tablet 3.125 mg PO BID 12/10/24 12/10/24 Unknown History ergocalciferol (vitamin D2) 1,250 1,250 mcg PO QMONTH 12/10/24 12/10/24 Unknown History mcg (50,000 unit) capsule (Vitamin D2) insulin glargine 100 unit/mL (3 1 unit subcut BEDTIME 12/10/24 12/10/24 Unknown History mL) subcutaneous pen (Lantus Solostar U-100 Insulin) vit B complex and vit C 1 tab PO DAILY 12/10/24 12/10/24 Unknown History no.24-ferrous fum 66 mg-folic 1,000 mcg tablet (Nephron FA) Physical Exam 2 Vital Signs: Vital Signs: Last Vital Signs Temp 97.7 F 12/11/24 07:09 Pulse 92 12/11/24 07:09 Resp 16 12/11/24 07:09 BP 130/89 12/11/24 07:09 Pulse Ox 95 12/11/24 07:09 O2 Del Method Room Air 12/11/24 07:09 BMI result Body Mass Index 21.1 Const: General: cooperative, healthy appearing and comfortable O rientation/consciousness: oriented to person, oriented to place and oriented to time HEENT: Head: Yes normal to inspection Neck: Neck: Yes normal visual inspection Carotids: no bruits Chest: Chest palpation & inspection: normal inspection of the chest Resp: Effort & Inspection: normal respiratory effort and able to speak in complete sentences Auscultation: clear to auscultation bilaterally, no crackles, no rales, no rhonchi and no wheezes Cardio: Rate: regular rate Rhythm: regular rhythm Heart sounds: S1 normal heart sound present and S2 normal heart sound present Bruits: no carotid bruits Peripheral pulses: Peripheral pulses 2+ throughout GI: Inspection: Yes normal to inspection Skin: Wounds: no wounds Hair: normal Neuro: General: oriented to person, oriented to place and oriented to time Cranial nerves: Yes CN's II-XII intact bilaterally and Yes Normal hearing present Cognition (Neuro): normal cognition Motor exam (neuro): 5/5 motor strength present throughout Extrem: Other: Left upper extremity with somewhat pulsatile flow through the fistula there is an evidence of thrill. General: No clubbing, No cyanosis and No edema Psych: Appearance: grossly normal Mental Status: mental status grossly normal Speech and movement: Normal speech and movement present Results Labs 12/11/24 06:27 12/11/24 06:27 Labs: Abnormal lab results 12/10/24 12/10/24 12/10/24 Range/Units 17:31 17:47 18:16 WBC 3.7 L (4.8-10.8) X10*3/uL RBC 2.30 L D (4.60-5.80) X10*6/uL Hgb 6.4 L* D (14.0-18.0) g/dl Hct 19.4 L* D (42.0-52.0) % RDW 18.8 H (11.0-16.0) % Plt Count 41 L (160-400) X10*3/uL Immature Gran % (Auto) 0.8 H (0.0-0.4) % Lymph # (Auto) (1.2-4.9) X10*3/uL Absolute Retic 0.007 L (0.026-0.095) X10*6/uL Percent Retic 0.3 L (0.5-1.8) % PT 14.6 H (10.9-12.4) SEC INR 1.3 H (0.9-1.1) APTT 74.8 H* D (26.0-36.8) SEC Fibrinogen 145 L (259-690) MG/DL Sodium 133 L (135-145) mmol/L Anion Gap 11 L (12-20) BUN 27 H (9-16) mg/dL Creatinine 2.25 H (0.5-1.4) mg/dL POC Glucose 52 L* (60-115) mg/dL Random Glucose 137 H (60-115) mg/dL Haptoglobin (40-268) mg/dL Lactic Acid 3.0 H* (0.5-2.0) mmol/L Lactic Acid F/U @ 2Hr (0.5-2.0) mmol/L Calcium 7.4 L (8.4-10.2) mg/dL AST 459 H (5-37) U/L ALT 352 H (0-40) U/L Alkaline Phosphatase 427 H (39-117) U/L Lactate Dehydrogenase 517 H (118-273) U/L Total Protein 4.0 L (6.5-8.0) g/dL Albumin 1.9 L (3.5-5.0) g/dL Lipase 7 L (8-78) U/L TSH 13.77 H (0.32-4.0) uIU/mL Crossmatch See Detail 12/10/24 12/10/24 12/11/24 Range/Units 20:49 22:48 03:53 WBC (4.8-10.8) X10*3/uL RBC (4.60-5.80) X10*6/uL Hgb (14.0-18.0) g/dl Hct (42.0-52.0) % RDW (11.0-16.0) % Plt Count (160-400) X10*3/uL Immature Gran % (Auto) (0.0-0.4) % Lymph # (Auto) (1.2-4.9) X10*3/uL Absolute Retic (0.026-0.095) X10*6/uL Percent Retic (0.5-1.8) % PT (10.9-12.4) SEC INR (0.9-1.1) APTT (26.0-36.8) SEC Fibrinogen (259-690) MG/DL Sodium (135-145) mmol/L Anion Gap (12-20) BUN (9-16) mg/dL Creatinine (0.5-1.4) mg/dL POC Glucose 145 H (60-115) mg/dL Random Glucose (60-115) mg/dL Haptoglobin < 8 L (40-268) mg/dL Lactic Acid (0.5-2.0) mmol/L Lactic Acid F/U @ 2Hr 3.2 H* (0.5-2.0) mmol/L Calcium (8.4-10.2) mg/dL AST (5-37) U/L ALT (0-40) U/L Alkaline Phosphatase (39-117) U/L Lactate Dehydrogenase (118-273) U/L Total Protein (6.5-8.0) g/dL Albumin (3.5-5.0) g/dL Lipase (8-78) U/L TSH (0.32-4.0) uIU/mL Crossmatch 12/11/24 Range/Units 06:27 WBC 4.7 L (4.8-10.8) X10*3/uL RBC 2.75 L (4.60-5.80) X10*6/uL Hgb 7.8 L D (14.0-18.0) g/dl Hct 22.7 L (42.0-52.0) % RDW 17.3 H (11.0-16.0) % Plt Count 63 L D (160-400) X10*3/uL Immature Gran % (Auto) 0.6 H (0.0-0.4) % Lymph # (Auto) 1.0 L (1.2-4.9) X10*3/uL Absolute Retic (0.026-0.095) X10*6/uL Percent Retic (0.5-1.8) % PT 12.5 H (10.9-12.4) SEC INR (0.9-1.1) APTT (26.0-36.8) SEC Fibrinogen (259-690) MG/DL Sodium (135-145) mmol/L Anion Gap (12-20) BUN 34 H (9-16) mg/dL Creatinine 2.60 H (0.5-1.4) mg/dL POC Glucose (60-115) mg/dL Random Glucose (60-115) mg/dL Haptoglobin (40-268) mg/dL Lactic Acid (0.5-2.0) mmol/L Lactic Acid F/U @ 2Hr (0.5-2.0) mmol/L Calcium 7.7 L (8.4-10.2) mg/dL AST 332 H (5-37) U/L ALT 333 H (0-40) U/L Alkaline Phosphatase 415 H (39-117) U/L Lactate Dehydrogenase (118-273) U/L Total Protein 4.7 L (6.5-8.0) g/dL Albumin 2.3 L (3.5-5.0) g/dL Lipase (8-78) U/L TSH (0.32-4.0) uIU/mL Crossmatch Short CBC 12/10/24 12/11/24 Range/Units 17:47 06:27 WBC 3.7 L 4.7 L (4.8-10.8) X10*3/uL Hgb 6.4 L* D 7.8 L D (14.0-18.0) g/dl Hct 19.4 L* D 22.7 L (42.0-52.0) % Plt Count 41 L 63 L D (160-400) X10*3/uL BMP 12/10/24 12/11/24 18:16 06:27 Sodium 133 L 135 Potassium 4.0 4.8 Chloride 98 97 Carbon Dioxide 28 29 BUN 27 H 34 H Creatinine 2.25 H 2.60 H Calcium 7.4 L 7.7 L Liver Function 12/10/24 12/11/24 Range/Units 18:16 06:27 Total Bilirubin 1.0 0.8 (0.0-1.0) mg/dL AST 459 H 332 H (5-37) U/L ALT 352 H 333 H (0-40) U/L Alkaline Phosphatase 427 H 415 H (39-117) U/L Albumin 1.9 L 2.3 L (3.5-5.0) g/dL All other labs normal. Assessment and Plan (1) ESRD (end stage renal disease) on dialysis: Status: Acute Plan In short patient is on dialysis through a left upper extremity fistula. I do think now that his coagulopathy has been corrected it is more hemostatic. Stable for use. May require elective fistulogram as an outpatient. He can reach turned to [facility] where originally was placed. We will follow on an as- needed basis. Thank you for allowing us to participate in his care. If there are any questions or concerns please do not hesitate to contact us. Procedures Date of Service Date of Service: 12/11/24
--- NOTE | 2024-12-11 09:29 | MHC.CM.PN ---
IMM 12/11. Pt with dx: dementia, he is a LTC resident at [facility], return referral placed (he is a bed hold). Call placed to pts sister/HCP Aaliyah, to address IMM, voicemail left. Pt uses a wheelchair, goes to HD on /Th/Sat, and will require BLS transport back to [facility] at discharge. PCP: Dr. Juan Antonio Parrish
[2024-12-11 11:05] LABS: Glucose, Whole Blood 99 mg/dL (60-115)
[2024-12-11 16:28] LABS: Glucose, Whole Blood 98 mg/dL (60-115)
[2024-12-11 20:41] LABS: Glucose, Whole Blood 81 mg/dL (60-115)
[2024-12-11] MEDS: Melatonin 3 MG TABLET 6 MG PO (21:02)
[2024-12-12] VITALS (10 sets, daily range): BP systolic 97–163; BP diastolic 73–94; PULSE 74–91; RESP 16–19; TEMP 36.1–36.6; O2SAT 96–100
[2024-12-12 06:56] LABS: MANUAL DIFF FLAG NO
[2024-12-12 07:15] LABS: INTERNATIONAL NORM RATIO 1.1 (0.9-1.1); Prothrombin Time 12.9 SEC (10.9-12.4)
[2024-12-12 07:19] LABS: Basophils Percent Auto 0.1 % (0-2); Eosinophils Percent Auto 0.3 % (0-4); Imm Gran Abs Auto 0.04 X10*3/uL (0.00-0.03); Imm Gran Pct Auto 0.6 % (0.0-0.4); Lymphocytes Percent Auto 14.2 % (20-40); Mean Corpuscular HGB Conc 33.7 g/dl (31.0-36.0); Mean Corpuscular Hemoglobin 28.1 pg (27.0-33.0); Mean Corpuscular Volume 83.4 fL (80.0-98.0); Mean Platelet Volume 10.2 fL (9.4-12.4); Monocytes Absolute Auto 0.1 X10*3/uL (0.1-1.2); Monocytes Percent Auto 1.6 % (2-11); Neutrophils Absolute Auto 5.7 x10*3/uL (2.0-8.3); Neutrophils Percent Auto 83.2 % (45-73); Red Blood Count 2.35 X10*6/uL (4.60-5.80); Red Cell Distribution Width 17.4 % (11.0-16.0); White Blood Count 6.9 X10*3/uL (4.8-10.8)
[2024-12-12 07:35] LABS: Platelet Count 43 X10*3/uL (160-400)
[2024-12-12 07:44] LABS: Hemoglobin 6.6 g/dl (14.0-18.0)
[2024-12-12 07:45] LABS: Hematocrit 19.6 % (42.0-52.0)
[2024-12-12 07:46] LABS: Alanine Aminotransferase 296 U/L (0-40); Albumin Level 2.2 g/dL (3.5-5.0); Alkaline Phosphatase 386 U/L (39-117); Anion Gap 11 (12-20); Aspartate Amino Transferase 276 U/L (5-37); Bilirubin Total 0.7 mg/dL (0.0-1.0); Blood Urea Nitrogen 28 mg/dL (9-16); Calcium 7.4 mg/dL (8.4-10.2); Carbon Dioxide 30 mmol/L (22-29); Chloride 98 mmol/L (96-108); Creatinine Clr Calc Pharmacy 35.7; Estimated Glomerular Filt Rate 35; Glucose Random 68 mg/dL (60-115); Potassium 3.4 mmol/L (3.3-5.1); Sodium 136 mmol/L (135-145); Total Protein 4.4 g/dL (6.5-8.0)
[2024-12-12 08:02] LABS: Glucose, Whole Blood 62 mg/dL (60-115)
[2024-12-12] MEDS: Multivitamin TABLET 1 TAB PO (08:28)
[2024-12-12] MEDS: Cyanocobalamin (Vitamin B-12) 1,000 MCG TABLET 1000 MCG PO (08:28)
[2024-12-12] MEDS: Folic Acid 1 MG TABLET PO (08:28)
[2024-12-12] MEDS: 0.9 % Sodium Chloride Flush 3 ML SYRINGE IVFLUSH ×3 (08:28→20:44)
[2024-12-12] MEDS: Levothyroxine Sodium 25 MCG TABLET PO (08:28)
[2024-12-12] MEDS: DULoxetine HCl 60 MG CAPSULE.DR PO (08:28)
[2024-12-12] MEDS: Thiamine HCL 100 MG TABLET PO (08:28)
[2024-12-12] MEDS: oxyCODONE HCl Immed Release 5 MG TABLET PO ×2 (08:28→17:01)
[2024-12-12] MEDS: Glucose Gel 15 GM GEL..GRAM. PO (08:28)
[2024-12-12 08:52] LABS: Glucose, Whole Blood 69 mg/dL (60-115)
[2024-12-12 09:37] LABS: Glucose, Whole Blood 110 mg/dL (60-115)
[2024-12-12] MEDS: HYDROmorphone HCl 0.5 MG/0.5 ML SYRINGE 0.25 MG IVPUSH ×2 (11:02→20:43)
--- NOTE | 2024-12-12 12:18 | P.CNHO_ITS ---
Subjective - Subjective Chief complaint: Consult for: ? DIC. Patient: new to practice Consult date: 12/12/24 Requesting Physician: FRACISCO. Primary Care Provider: [facility] Medical Summary: DIAGNOSIS: Coagulopathy. Bleeding. 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 Narrative: Ignacio Drake is a 64 year old gentleman, with a PMH significant for?ESRD on HD T//Sat,, anemia of chronic disease, chronic thrombocytopenia, who presented to the ED from [facility], on 12/10, due to bleeding from his AV fistula. The bleeding has been unable to be controlled since having dialysis. EMS applied a pressure dressing to try to control the bleed. In the ED the provider was able to place a [id number] suture she stopped the bleeding. Patient denies any trauma to the area aside from dialysis. He denies any chest pain, shortness of breath, cough, nausea, vomiting, abdominal pain, urinary frequency, urgency or dysuria. He was also found to be hypoglycemic and hypothermic. Review of Systems 2 Constitutional: Constitutional: Denies chills, Denies fatigue, Denies fever(s) and Denies headache(s) Eyes: Eyes: Denies change in vision and Denies photophobia ENT: Denies headache(s), Denies nasal congestion, Denies nasal discharge and Denies sore throat Cardiovascular: Cardiovascular: Denies chest pain, Denies syncope, Denies rapid heart rate, Denies leg edema and Denies dyspnea Respiratory: Respiratory: Denies chest congestion, Denies cough, Denies dyspnea and Denies wheezing Gastrointestinal: Gastrointestinal: Denies abdominal pain, Denies diarrhea, Denies nausea and Denies vomiting Genitourinary: Genitourinary: Denies dysuria, Denies urinary frequency, Denies urinary hesitancy, Denies urinary incontinence and Denies urinary urgency Musculoskeletal: Musculoskeletal: Denies myalgias Integumentary/Breasts: Skin/Breast: Denies rash Neurologic: Denies confusion, Denies syncope and Denies headache(s) Psychiatric: Psychiatric: Denies confusion Endocrine: Endocrine: Denies fatigue Hematologic/Lymphatic: Hematologic/Lymphatic: Reports easy bleeding and Denies easy bruising Allergic/Immunologic: Allergic/Immunologic: Denies wheezing [facility] Medical History:) type I brittle diabetes, NSTEMI 11/2022, HLD, COPD, BPH, CHF, seizure disorder, hepatitis C, unspecified dementia, mood disorder. Hypernatremia Vitamin D deficiency Hyperkalemia Hyperparathyroidism Dysphagia Hyperlipemia Hypertension Major depressive disorder Urine retention Systolic CHF Dementia Benign prostate hyperplasia Nicotine dependence Constipation Osteoarthritis Anemia Peripheral vascular disease Atrial fibrillation Gastrointestinal hemorrhage End stage renal disease on dialysis Hepatitis C COPD (chronic obstructive pulmonary disease) Cellulitis Streptococcal sepsis, unspecified Bacteremia Septic shock Sepsis Diabetes mellitus type 1 Hypertensive cardiopathy ESRD (end stage renal disease) on dialysis Social History:) Household Members: Other Household Members Other:: [facility] Housing: Snf Unable to assess alcohol history related to: Unable to respond Alcohol intake: never Patient Tobacco Use Status: Current everyday Tobacco user Tobacco use type: Cigarette Second Hand Smoke Exposure: No Advance Directives: Yes Review of Systems - Constitutional Reports system reviewed and no additional complaints, except as documented - Eyes Reports system reviewed and no additional complaints, except as documented - ENT Reports system reviewed and no additional complaints, except as documented - Cardiovascular Reports system reviewed and no additional complaints, except as documented - Respiratory Reports no additional respiratory complaints - Gastrointestinal Reports system reviewed and no additional complaints, except as documented - Genitourinary Genitourinary: Reports no additional male genitourinary complaints - Musculoskeletal Reports system reviewed and no additional complaints, except as documented - Integumentary/Breasts Skin/Breast: Reports no additional skin complaints - Neurologic Reports hearing normal, Denies abnormal gait, Denies confusion, Denies syncope, Denies headache(s) - Psychiatric Reports system reviewed and no additional complaints, except as documented - Endocrine Reports no additional endocrine complaints - Hematologic/Lymphatic Reports system reviewed and no additional complaints, except as documented - Allergic/Immunologic Reports system reviewed and no additional complaints, except as documented Oncology Screenings - ECOG Performance Status ECOG Performance Status: 2 [facility] Medical History: Medical History (Last Reviewed 12/11/24 @ 02:32 by Yeny Vegas RN) Anemia Atrial fibrillation Bacteremia Benign prostate hyperplasia Cellulitis Constipation COPD (chronic obstructive pulmonary disease) Dementia Diabetes mellitus type 1 Dysphagia End stage renal disease on dialysis ESRD (end stage renal disease) on dialysis Gastrointestinal hemorrhage Hepatitis C Hyperkalemia Hyperlipemia Hypernatremia Hyperparathyroidism Hypertension Hypertensive cardiopathy Major depressive disorder Nicotine dependence Osteoarthritis Peripheral vascular disease Sepsis Septic shock Streptococcal sepsis, unspecified Systolic CHF Urine retention Vitamin D deficiency Social History: Social History (Last Reviewed 12/10/24 @ 21:54 by Judith Willis PA-C) Living Situation History: Household Members: Other Household Members Other:: [facility] Housing: Snf Do you presently have visiting nurse or other home services: Do you presently have visiting nurse or other home services comment: [facility] Alcohol History: Unable to assess alcohol history related to: Unable to respond Tobacco History: Patient Tobacco Use Status: Former Tobacco user Tobacco use type: Cigarette Second Hand Smoke Exposure: No Advance Directives: Advance Directives Date on File: 06/22/22 Occupation Assessmet: service: No Current occupational status: disabled Home Medications and Allergies Current Medications: Current Medications Acetaminophen (Acetaminophen 325 Mg Tablet) 650 mg PO Q6H PRN PRN Reason: Pain, Mild 1-3,fever,headache Calcium Carbonate (Calcium Carbonate 750 Mg Tab.Chew) 750 mg PO Q4H PRN PRN Reason: Heartburn Cyanocobalamin (Cyanocobalamin (Vitamin B-12) 1,000 Mcg Tablet) 1,000 mcg PO DAILY [facility] Last Admin: 12/12/24 08:28 Dose: 1,000 mcg Dextrose (Dextrose 50 % 25 Gm/50 Ml Syringe) 25 gm IVPUSH Q15M PRN; Protocol PRN Reason: per Hypoglycemia Standing Ord. Duloxetine HCl (Duloxetine Hcl 60 Mg Capsule.Dr) 60 mg PO DAILY [facility] Last Admin: 12/12/24 08:28 Dose: 60 mg Ergocalciferol (Ergocalciferol (Vitamin D2) 1,250 Mcg Capsule) 1,250 mcg PO WE@0900 [facility] Ergocalciferol (Ergocalciferol (Vitamin D2) 1,250 Mcg Capsule) 1,250 mcg PO Q30D@0900 [facility] Folic Acid (Folic Acid 1 Mg Tablet) 1 mg PO DAILY [facility] Last Admin: 12/12/24 08:28 Dose: 1 mg Glucose (Glucose Gel 15 Gm Gel..Gram.) 15 gm PO Q15M PRN; Protocol PRN Reason: per Hypoglycemia Standing Ord. Last Admin: 12/12/24 08:28 Dose: 15 gm Hydromorphone HCl (Hydromorphone Hcl 0.5 Mg/0.5 Ml Syringe) 0.25 mg IVPUSH Q4H PRN; Protocol PRN Reason: Pain, Severe (Pain Scale 7-10) Last Admin: 12/12/24 11:02 Dose: 0.25 mg Insulin Human Lispro (Insulin Lispro 100 Unit/Ml 3 Ml Vial) 0 unit SUBCUT QIDACHS [facility]; Protocol Last Admin: 12/12/24 08:15 Dose: Not Given Levothyroxine Sodium (Levothyroxine Sodium 25 Mcg Tablet) 25 mcg PO DAILY@0600 [facility] Last Admin: 12/12/24 08:28 Dose: 25 mcg Magnesium Hydroxide (Milk Of Magnesia 30 Ml Oral.Susp) 30 ml PO DAILY PRN PRN Reason: Constipation Melatonin (Melatonin 3 Mg Tablet) 6 mg PO BEDTIME PRN PRN Reason: Insomnia Last Admin: 12/11/24 21:02 Dose: 6 mg Mirtazapine (Mirtazapine 15 Mg Tablet) 15 mg PO BEDTIME [facility] Multivitamins/Vitamin C (Multivitamin Tablet) 1 tab PO DAILY [facility] Last Admin: 12/12/24 08:28 Dose: 1 tab Naloxone HCl (Naloxone Hcl 0.4 Mg/Ml Vial) 0.4 mg SUBCUT Q2M PRN PRN Reason: Anaphylaxis Naloxone HCl (Naloxone Hcl Nasal 4 Mg [place]) 4 mg NOSTRILALT Q2M PRN PRN Reason: overdose Ondansetron HCl (Ondansetron Hcl 4 Mg/2 Ml Vial) 4 mg IVPUSH Q8H PRN PRN Reason: Nausea and Vomiting Oxycodone HCl (Oxycodone Hcl Immed Release 5 Mg Tablet) 5 mg PO Q6H PRN PRN Reason: Pain, Moderate(Pain Scale 4-6) Last Admin: 12/12/24 08:28 Dose: 5 mg Sodium Chloride (0.9 % Sodium Chloride Flush 3 Ml Syringe) 3 ml IVFLUSH QSHIFT [facility] Last Admin: 12/12/24 08:28 Dose: 3 ml Tamsulosin HCl (Tamsulosin Hcl 0.4 Mg Capsule) 0.4 mg PO BEDTIME [facility] Thiamine HCl (Thiamine Hcl 100 Mg Tablet) 100 mg PO DAILY [facility] Last Admin: 12/12/24 08:28 Dose: 100 mg Home Medications ?Medication ?Instructions ?Recorded ?Confirmed ?Type duloxetine 60 mg capsule,delayed 60 mg PO DAILY 06/17/22 12/10/24 History release insulin lispro 100 unit/mL See Protocol subcut TIDAC 06/17/22 12/10/24 History subcutaneous solution (Humalog U-100 Insulin) mirtazapine 15 mg tablet 15 mg PO BEDTIME 06/17/22 12/10/24 History tamsulosin 0.4 mg capsule 1 cap PO BEDTIME 06/17/22 12/10/24 History melatonin 5 mg tablet 5 mg PO BEDTIME Sleep 11/20/22 12/10/24 History oxycodone 5 mg tablet 5 mg PO Q6H PRN Pain (Scale Score 11/20/22 12/10/24 History 4-6) cholecalciferol (vitamin D3) 1,250 1,250 mcg PO WE 11/22/24 12/10/24 History mcg (50,000 unit) capsule cyanocobalamin (vitamin B-12) 1,000 mcg PO DAILY 11/22/24 12/10/24 History 1,000 mcg tablet epinephrine 0.3 mg/0.3 mL 0.3 mg IM Q5M PRN Anaphylaxis 11/22/24 12/10/24 History injection, auto-injector (EpiPen) ergocalciferol (vitamin D2) 1,250 1,250 mcg PO WE@0900 11/22/24 12/10/24 History mcg (50,000 unit) capsule folic acid 1 mg tablet 1 mg PO DAILY 11/22/24 12/10/24 History glucagon 1 mg/0.2 mL subcutaneous 1 mg subcut Q15M PRN low BS 11/22/24 12/10/24 History solution (Gvoke) naloxone 0.4 mg/mL injection 0.4 mg subcut Q2M PRN Anaphylaxis 11/22/24 12/10/24 History solution naloxone 4 mg/actuation nasal spray 4 mg intranasal Q2M PRN overdose 11/22/24 12/10/24 History thiamine HCl (vitamin B1) 100 mg 100 mg PO DAILY 11/22/24 12/10/24 History tablet carvedilol 3.125 mg tablet 3.125 mg PO BID 12/10/24 12/10/24 History ergocalciferol (vitamin D2) 1,250 1,250 mcg PO QMONTH 12/10/24 12/10/24 History mcg (50,000 unit) capsule (Vitamin D2) insulin glargine 100 unit/mL (3 1 unit subcut BEDTIME 12/10/24 12/10/24 History mL) subcutaneous pen (Lantus Solostar U-100 Insulin) vit B complex and vit C 1 tab PO DAILY 12/10/24 12/10/24 History no.24-ferrous fum 66 mg-folic 1,000 mcg tablet (Nephron FA) Allergies Allergy/AdvReac Type Severity Reaction Status Date / Time No Known Allergies Allergy Verified 12/10/24 17:12 Physical Exam Vital signs: Vital Signs Temp 97.0 F 12/12/24 11:42 Pulse 82 12/12/24 11:42 Resp 19 12/12/24 11:42 BP 140/83 H 12/12/24 11:42 Pulse Ox 100 12/12/24 11:42 O2 Del Method Room Air 12/12/24 11:42 Intake & Output 12/11/24 12/12/24 12/12/24 18:59 06:59 18:59 Intake Total 350 / 590 240 / 590 0 / 0 Balance 350 / 590 240 / 590 0 / 0 Intake: Intake, Oral Amount 350 / 590 240 / 590 Intake (Blood Product) Amount 0 / 0 Red Blood Cells (E0336) Unit 0 / 0 [id number] Other: Meal Refused No NPO No Breakfast % Eaten 25% Lunch % Eaten 25% Diabetic Snack % Eaten 50 Eating (Feeding) Ability Set Up only Last Bowel Movement 12/09/24 12/09/24 12/09/24 Weight 64.7 kg - Constitutional Present: mild distress - Routine HEENT Exam Head: Present: normal inspection, normocephalic Eye: Present: normal appearance ENT: Present: mucous membranes moist - Routine Neck Exam Present: supple Hem/Onc Consult Result - Labs CBC & Chem 7: 12/13/24 12:57 12/13/24 08:45 Labs: Short CBC 12/12/24 Range/Units 06:28 WBC 6.9 (4.8-10.8) X10*3/uL Hgb 6.6 L* (14.0-18.0) g/dl Hct 19.6 L* (42.0-52.0) % Plt Count 43 L D (160-400) X10*3/uL BMP 12/12/24 06:28 Sodium 136 Potassium 3.4 D Chloride 98 Carbon Dioxide 30 H BUN 28 H Creatinine 1.96 H Calcium 7.4 L Liver Function 12/12/24 Range/Units 06:28 Total Bilirubin 0.7 (0.0-1.0) mg/dL AST 276 H (5-37) U/L ALT 296 H (0-40) U/L Alkaline Phosphatase 386 H (39-117) U/L Albumin 2.2 L (3.5-5.0) g/dL Assessment and Plan Patient Active problem list reviewed?: Yes (1) Consumption coagulopathy Status: Acute Assessment and plan: In the ED, there was a medical dressing over the fistula puncture site but the patient was bleeding through the dressing. There was a large towel over the dressing site which also was soaked through with blood. The patient was somnolent. His point of care glucose was 52. Initial rectal temperature was 93.4 degrees F. Physical examination revealed a bleeding puncture site in the AV fistula, AV fistula also had a bulge to it which may be chronic.His extremities were cool, but radial pulses were noted bilaterally using Doppler. His vital signs revealed hypotension 64/47 and hypothermia 93.9 degrees F. patient was lethargic with slow slurred speech. There was active bleeding from the left AV fistula puncture site. Impression: Hypoglycemia. Hypothermia secondary to hypoglycemia, Anemia secondary to bleeding AV fistula. Electrolyte abnormalities Laboratory evaluation: H&H is low 6.4 and 19.4. Previous H&H of 10.6 and 32.2 from 11/25/2024 and 7.6 and 23.6 from 11/24/2024. This is the patient's lowest H&H documented at this facility. PTT elevated 78.4. PT and INR elevated 14.6 and 1.3. Sodium low 133. BUN and creatinine elevated 27 and 2.25. Retic count: 0.03. LDH: 517. Fibrinogen: 145. COVID-19, influenza and RSV tests were negative. His hypoglycemia was treated with 1 amp of D50 IV push. The patient's hypothermia, most likely caused by his hypoglycemia, was treated with a Alie Hugger with improvement of his temperature. Given his low H&H, he likely had significant blood loss from the AV fistula puncture site. A figure of 8 suture was placed by Dr[address] Triana over the puncture site to stop the bleeding. A pressure dressing was applied for 20 minutes after the puncture site was sutured closed and there was no active bleeding. DATA BASE: WBC 6.9, HGB 6.6. HCT 20. Platelets: 43. Reviewing records from [facility], patient has chronic thrombocytopenia with platelet counts ranging from 50-100 K. He has had recent admissions to [facility] in October 2024 with similar complaints. He was diagnosed with aspiration pneumonia, he refused G-tube placement. Worsening thrombocytopenia is likely related to pneumonia, poor nutrition, antibiotic use and underlying liver disease/hepatitis-C. IMPRESSION: COAGULOPATHY: Differential diagnosis: 1. DIC: Patient does have a known history of low-grade DIC. He has been managed expectantly. 2. VITAMIN K DEFICIENCY: On nutritional basis. 3. TTP/HUS: Less likely. He does not fulfill the PENTAD. He does not have a fever. He does have kidney disease but that is on the basis of his CKD. He is maintained on dialysis. 4. AUTOIMMUNE HEMOLYTIC ANEMIA: Has been a concern in the past, with positive Zechariah test and low haptoglobin. Has been treated with steroids. PLAN: Given his significant blood loss, he was given 1 unit of packed red blood cells. He was given platelet transfusion and cryoprecipitate. He has also received vitamin K supplement. Will check ADAMTS 13, to complete the workup. He can receive another unit of blood during dialysis. Will follow labs including haptoglobin, Zechariah test, LDH: 297, and fibrinogen. Thank you for the consult, Will follow along with you, CC: [facility]. - Time Spent With Patient Time Spent with Patient (in minutes): 30
--- NOTE | 2024-12-12 12:37 | P.PNIM_ITS ---
Subjective Subjective Date of Service: 12/12/24 Interval History: Hypoglycemia this morning, H/H also low Physical Exam 2 Vital Signs: Vital Signs: Last Vital Signs Temp 97.0 F 12/12/24 11:42 Pulse 82 12/12/24 11:42 Resp 19 12/12/24 11:42 BP 140/83 H 12/12/24 11:42 Pulse Ox 100 12/12/24 11:42 O2 Del Method Room Air 12/12/24 11:42 BMI result Body Mass Index 21.1 Objective Data Active Medications Acetaminophen (Acetaminophen 325 Mg Tablet) 650 mg PO Q6H PRN PRN Reason: Pain, Mild 1-3,fever,headache Calcium Carbonate (Calcium Carbonate 750 Mg Tab.Chew) 750 mg PO Q4H PRN PRN Reason: Heartburn Cyanocobalamin (Cyanocobalamin (Vitamin B-12) 1,000 Mcg Tablet) 1,000 mcg PO DAILY [facility] Last Admin: 12/12/24 08:28 Dose: 1,000 mcg Documented By: DON Dextrose (Dextrose 50 % 25 Gm/50 Ml Syringe) 25 gm IVPUSH Q15M PRN; Protocol PRN Reason: per Hypoglycemia Standing Ord. Duloxetine HCl (Duloxetine Hcl 60 Mg Capsule.Dr) 60 mg PO DAILY [facility] Last Admin: 12/12/24 08:28 Dose: 60 mg Documented By: DON Ergocalciferol (Ergocalciferol (Vitamin D2) 1,250 Mcg Capsule) 1,250 mcg PO WE@0900 [facility] Ergocalciferol (Ergocalciferol (Vitamin D2) 1,250 Mcg Capsule) 1,250 mcg PO Q30D@0900 [facility] Folic Acid (Folic Acid 1 Mg Tablet) 1 mg PO DAILY [facility] Last Admin: 12/12/24 08:28 Dose: 1 mg Documented By: DON Glucose (Glucose Gel 15 Gm Gel..Gram.) 15 gm PO Q15M PRN; Protocol PRN Reason: per Hypoglycemia Standing Ord. Last Admin: 12/12/24 08:28 Dose: 15 gm Documented By: DON Hydromorphone HCl (Hydromorphone Hcl 0.5 Mg/0.5 Ml Syringe) 0.25 mg IVPUSH Q4H PRN; Protocol PRN Reason: Pain, Severe (Pain Scale 7-10) Last Admin: 12/12/24 11:02 Dose: 0.25 mg Documented By: DON Insulin Human Lispro (Insulin Lispro 100 Unit/Ml 3 Ml Vial) 0 unit SUBCUT QIDACHS [facility]; Protocol Last Admin: 12/12/24 08:15 Dose: Not Given Documented By: DON Non-Admin Reason: poc= 62 Levothyroxine Sodium (Levothyroxine Sodium 25 Mcg Tablet) 25 mcg PO DAILY@0600 [facility] Last Admin: 12/12/24 08:28 Dose: 25 mcg Documented By: DON Magnesium Hydroxide (Milk Of Magnesia 30 Ml Oral.Susp) 30 ml PO DAILY PRN PRN Reason: Constipation Melatonin (Melatonin 3 Mg Tablet) 6 mg PO BEDTIME PRN PRN Reason: Insomnia Last Admin: 12/11/24 21:02 Dose: 6 mg Documented By: JENNIFER Mirtazapine (Mirtazapine 15 Mg Tablet) 15 mg PO BEDTIME [facility] Multivitamins/Vitamin C (Multivitamin Tablet) 1 tab PO DAILY [facility] Last Admin: 12/12/24 08:28 Dose: 1 tab Documented By: DON Naloxone HCl (Naloxone Hcl 0.4 Mg/Ml Vial) 0.4 mg SUBCUT Q2M PRN PRN Reason: Anaphylaxis Naloxone HCl (Naloxone Hcl Nasal 4 Mg [place]) 4 mg NOSTRILALT Q2M PRN PRN Reason: overdose Ondansetron HCl (Ondansetron Hcl 4 Mg/2 Ml Vial) 4 mg IVPUSH Q8H PRN PRN Reason: Nausea and Vomiting Oxycodone HCl (Oxycodone Hcl Immed Release 5 Mg Tablet) 5 mg PO Q6H PRN PRN Reason: Pain, Moderate(Pain Scale 4-6) Last Admin: 12/12/24 08:28 Dose: 5 mg Documented By: DON Sodium Chloride (0.9 % Sodium Chloride Flush 3 Ml Syringe) 3 ml IVFLUSH QSHIFT [facility] Last Admin: 12/12/24 08:28 Dose: 3 ml Documented By: DON Tamsulosin HCl (Tamsulosin Hcl 0.4 Mg Capsule) 0.4 mg PO BEDTIME [facility] Thiamine HCl (Thiamine Hcl 100 Mg Tablet) 100 mg PO DAILY [facility] Last Admin: 12/12/24 08:28 Dose: 100 mg Documented By: DON Labs 12/12/24 06:28 12/12/24 06:28 Labs: Laboratory Results - last 24 hr 12/10/24 12/11/24 12/11/24 17:47 16:24 20:38 MCV MCH MCHC RDW Plt Count MPV Immature Gran % (Auto) Neut % (Auto) Lymph % (Auto) [place] % (Auto) Eos % (Auto) Baso % (Auto) Lymph # (Auto) [place] # (Auto) Eos # (Auto) Baso # (Auto) Abs Immat Gran (auto) Absolute Neuts (auto) Absolute Nucleated RBC Nucleated RBC % (auto) PT INR Anion Gap Estim Creat Clear Calc Estimated GFR POC Glucose 98 81 Random Glucose Calcium Total Bilirubin AST ALT Alkaline Phosphatase Total Protein Albumin Blood Type B Positive Antibody Screen NEGATIVE Crossmatch See Detail 12/12/24 12/12/24 12/12/24 06:28 07:58 08:48 MCV 83.4 MCH 28.1 MCHC 33.7 RDW 17.4 H Plt Count 43 L D MPV 10.2 Immature Gran % (Auto) 0.6 H Neut % (Auto) 83.2 H Lymph % (Auto) 14.2 L [place] % (Auto) 1.6 L Eos % (Auto) 0.3 Baso % (Auto) 0.1 Lymph # (Auto) 1.0 L [place] # (Auto) 0.1 Eos # (Auto) 0.0 Baso # (Auto) 0.0 Abs Immat Gran (auto) 0.04 H Absolute Neuts (auto) 5.7 Absolute Nucleated RBC 0.000 Nucleated RBC % (auto) 0.0 PT 12.9 H INR 1.1 Anion Gap 11 L Estim Creat Clear Calc 35.7 Estimated GFR 35 POC Glucose 62 69 Random Glucose 68 Calcium 7.4 L Total Bilirubin 0.7 AST 276 H ALT 296 H Alkaline Phosphatase 386 H Total Protein 4.4 L Albumin 2.2 L Blood Type Antibody Screen Crossmatch 12/12/24 09:33 MCV MCH MCHC RDW Plt Count MPV Immature Gran % (Auto) Neut % (Auto) Lymph % (Auto) [place] % (Auto) Eos % (Auto) Baso % (Auto) Lymph # (Auto) [place] # (Auto) Eos # (Auto) Baso # (Auto) Abs Immat Gran (auto) Absolute Neuts (auto) Absolute Nucleated RBC Nucleated RBC % (auto) PT INR Anion Gap Estim Creat Clear Calc Estimated GFR POC Glucose 110 Random Glucose Calcium Total Bilirubin AST ALT Alkaline Phosphatase Total Protein Albumin Blood Type Antibody Screen Crossmatch Microbiology Microbiology Results: Microbiology 12/10/24 18:16 Blood Culture - Preliminary Blood - Venous No growth after 24 hours. 12/10/24 17:47 Blood Culture - Preliminary Blood - Venous No growth after 24 hours. Assessment and Plan (1) Acute blood loss anemia: Status: Acute (2) ABLA (acute blood loss anemia): Status: Acute Plan pt is a 64-year-old male with a PMH significant for?ESRD on HD //Sat, type I brittle diabetes, NSTEMI 11/2022, HLD, COPD, BPH, CHF, seizure disorder, anemia of chronic disease, chronic thrombocytopenia, hepatitis C, unspecified dementia, mood disorder, among others who presents to the ED from [facility] due to bleeding from his AV fistula. 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 Jarvis who suggested cryoprecipitate, FFP, Plat and vit K, all given INR is normal ?concern for TTP/HUS, check LOU TS 13 is pending hematology/nephro consult pending Acute blood loss anemia secondary to bleeding AV fistula hypothermia and hypoglycemia secondary to acute blood loss hemoglobin 6.4, hematocrit 19.4, given 1 unit PRBC in ED, H/H has improved, Hct 19 again today, transfuse 1 more unit during dialysis platelets is within baseline vascular consult, nothing to do monitor on tele follow CBC Lactic acidosis lactic acid 3.0 secondary to demand ischemia Elevated LFTs AST 459, ALT 352, ALP 427 secondary to demand ischemia, ?DIC, also patient with hepatitis-C, unclear if treated monitor LFTs ESRD on HD // nephro consult Type 1 brittle diabetes hypoglycemic in ED, given dextrose 25 g x 1 POC Q2H x6H diabetic diet sliding scale insulin, avoid insulin if blood sugar under 200 HLD continue statin Hypothyroid check TSH continue levothyroxine Mood disorder continue home meds BPH continue tamsulosin Full code VTE prophylaxis: Pneumoboots due to thrombocytopenia and acute blood loss Patient with acute blood loss anemia requiring admission for at least 2 midnight stay for blood transfusion, monitoring and further evaluation. Quality Stroke Does the patient have a stroke diagnosis?: No VTE Prior VTE?: No VTE Risk Level:: Medical - moderate - high VTE Device Contraindication: N/A - Device Ordered VTE Drug Contraindication: Treatment Not Indicated
[2024-12-12 12:41] LABS: Glucose, Whole Blood 101 mg/dL (60-115)
[2024-12-12 12:59] LABS: Immature Retic Fraction 8.5 % (2.3-13.4); Retic HGB Equivalent 34.8 pg (30.0-35.0); Reticulocytes Absolute 0.011 X10*6/uL (0.026-0.095)
[2024-12-12 13:00] LABS: Reticulocyte Percent 0.5 % (0.5-1.8)
[2024-12-12 13:08] LABS: Lactate Dehydrogenase 297 U/L (118-273)
[2024-12-12 13:23] LABS: Haptoglobin < 8 mg/dL (40-268)
[2024-12-12 16:36] LABS: Glucose, Whole Blood 81 mg/dL (60-115)
[2024-12-12 20:21] LABS: Glucose, Whole Blood 80 mg/dL (60-115)
[2024-12-12] MEDS: Tamsulosin HCL 0.4 MG CAPSULE PO (20:43)
[2024-12-12] MEDS: Mirtazapine 15 MG TABLET PO (20:43)
[2024-12-13] VITALS (8 sets, daily range): BP systolic 132–171; BP diastolic 82–109; PULSE 83–89; RESP 16–20; TEMP 36.2–36.6; O2SAT 97–100
[2024-12-13] MEDS: oxyCODONE HCl Immed Release 5 MG TABLET PO (00:26)
[2024-12-13] MEDS: Levothyroxine Sodium 25 MCG TABLET PO (03:53)
[2024-12-13] MEDS: HYDROmorphone HCl 0.5 MG/0.5 ML SYRINGE 0.25 MG IVPUSH ×4 (03:53→19:45)
[2024-12-13] MEDS: Glucose Gel 15 GM GEL..GRAM. PO (04:07)
[2024-12-13 04:10] LABS: Glucose, Whole Blood 69 mg/dL (60-115)
[2024-12-13 07:15] LABS: Glucose, Whole Blood 83 mg/dL (60-115)
[2024-12-13] MEDS: DULoxetine HCl 60 MG CAPSULE.DR PO (08:15)
[2024-12-13] MEDS: Multivitamin TABLET 1 TAB PO (08:15)
[2024-12-13] MEDS: 0.9 % Sodium Chloride Flush 3 ML SYRINGE IVFLUSH ×3 (08:15→19:40)
[2024-12-13] MEDS: Folic Acid 1 MG TABLET PO (08:15)
[2024-12-13] MEDS: Thiamine HCL 100 MG TABLET PO (08:15)
[2024-12-13] MEDS: Cyanocobalamin (Vitamin B-12) 1,000 MCG TABLET 1000 MCG PO (08:15)
[2024-12-13 09:35] LABS: Alanine Aminotransferase 266 U/L (0-40); Albumin Level 2.1 g/dL (3.5-5.0); Alkaline Phosphatase 387 U/L (39-117); Anion Gap 12 (12-20); Aspartate Amino Transferase 237 U/L (5-37); Bilirubin Total 0.8 mg/dL (0.0-1.0); Blood Urea Nitrogen 30 mg/dL (9-16); Calcium 7.6 mg/dL (8.4-10.2); Carbon Dioxide 28 mmol/L (22-29); Chloride 100 mmol/L (96-108); Estimated Glomerular Filt Rate 31; Glucose Random 77 mg/dL (60-115); Potassium 4.3 mmol/L (3.3-5.1); Sodium 136 mmol/L (135-145); Total Protein 4.6 g/dL (6.5-8.0)
[2024-12-13 10:30] LABS: Fibrinogen 280 MG/DL (259-690); INTERNATIONAL NORM RATIO 1.1 (0.9-1.1)
[2024-12-13 10:33] LABS: Partial Thromboplastin Time 40.6 SEC (26.0-36.8)
[2024-12-13 10:44] LABS: Eosinophils Percent Auto 0.1 % (0-4); Lymphocytes Percent Auto 11.6 % (20-40); MANUAL DIFF FLAG SCAN; Mean Corpuscular Hemoglobin 29.1 pg (27.0-33.0); PLT CLUMP 1; Red Cell Distribution Width 16.5 % (11.0-16.0); SCAN SMEAR FLAG 1
[2024-12-13 10:46] LABS: Basophils Percent Auto 0.1 % (0-2); Hematocrit 28.2 % (42.0-52.0); Hemoglobin 9.6 g/dl (14.0-18.0); Imm Gran Abs Auto 0.07 X10*3/uL (0.00-0.03); Imm Gran Pct Auto 0.7 % (0.0-0.4); Lymphocytes Absolute Auto 1.1 X10*3/uL (1.2-4.9); Mean Corpuscular Volume 85.5 fL (80.0-98.0); Mean Platelet Volume 10.9 fL (9.4-12.4); Monocytes Absolute Auto 0.4 X10*3/uL (0.1-1.2); Monocytes Percent Auto 3.7 % (2-11); Neutrophils Absolute Auto 8.1 x10*3/uL (2.0-8.3); Neutrophils Percent Auto 83.8 % (45-73)
[2024-12-13 10:50] LABS: White Blood Count 9.6 X10*3/uL (4.8-10.8)
--- NOTE | 2024-12-13 10:56 | P.PNIM_ITS ---
Subjective Subjective Date of Service: 12/13/24 Interval History: Hypoglycemia this morning, H/H also low No hypglycemia today, awaiting H/H level Physical Exam 2 Vital Signs: Vital Signs: Last Vital Signs Temp 97.1 F 12/13/24 07:36 Pulse 84 12/13/24 07:36 Resp 18 12/13/24 08:14 BP 132/84 12/13/24 07:36 Pulse Ox 98 12/13/24 07:36 O2 Del Method Room Air 12/13/24 07:36 BMI result Body Mass Index 21.1 Const: Other: General: AO X 3, no acute distress Resp: CTA bilateral CVS: S1,S2,RRR GI: +BS, NT, no distention Skin: No rash Neuro: motor grossly intact Psych: appropriate affect Objective Data Active Medications Acetaminophen (Acetaminophen 325 Mg Tablet) 650 mg PO Q6H PRN PRN Reason: Pain, Mild 1-3,fever,headache Calcium Carbonate (Calcium Carbonate 750 Mg Tab.Chew) 750 mg PO Q4H PRN PRN Reason: Heartburn Cyanocobalamin (Cyanocobalamin (Vitamin B-12) 1,000 Mcg Tablet) 1,000 mcg PO DAILY [facility] Last Admin: 12/13/24 08:15 Dose: 1,000 mcg Documented By: DON Dextrose (Dextrose 50 % 25 Gm/50 Ml Syringe) 25 gm IVPUSH Q15M PRN; Protocol PRN Reason: per Hypoglycemia Standing Ord. Duloxetine HCl (Duloxetine Hcl 60 Mg Capsule.Dr) 60 mg PO DAILY [facility] Last Admin: 12/13/24 08:15 Dose: 60 mg Documented By: DON Ergocalciferol (Ergocalciferol (Vitamin D2) 1,250 Mcg Capsule) 1,250 mcg PO WE@0900 [facility] Ergocalciferol (Ergocalciferol (Vitamin D2) 1,250 Mcg Capsule) 1,250 mcg PO Q30D@0900 [facility] Folic Acid (Folic Acid 1 Mg Tablet) 1 mg PO DAILY [facility] Last Admin: 12/13/24 08:15 Dose: 1 mg Documented By: DON Glucose (Glucose Gel 15 Gm Gel..Gram.) 15 gm PO Q15M PRN; Protocol PRN Reason: per Hypoglycemia Standing Ord. Last Admin: 12/13/24 04:07 Dose: 15 gm Documented By: JENNIFER Hydromorphone HCl (Hydromorphone Hcl 0.5 Mg/0.5 Ml Syringe) 0.25 mg IVPUSH Q4H PRN; Protocol PRN Reason: Pain, Severe (Pain Scale 7-10) Last Admin: 12/13/24 08:14 Dose: 0.25 mg Documented By: DON Insulin Human Lispro (Insulin Lispro 100 Unit/Ml 3 Ml Vial) 0 unit SUBCUT QIDACHS [facility]; Protocol Last Admin: 12/13/24 07:31 Dose: Not Given Documented By: DON Non-Admin Reason: poc= 83 Levothyroxine Sodium (Levothyroxine Sodium 25 Mcg Tablet) 25 mcg PO DAILY@0600 [facility] Last Admin: 12/13/24 03:53 Dose: 25 mcg Documented By: JENNIFER Magnesium Hydroxide (Milk Of Magnesia 30 Ml Oral.Susp) 30 ml PO DAILY PRN PRN Reason: Constipation Melatonin (Melatonin 3 Mg Tablet) 6 mg PO BEDTIME PRN PRN Reason: Insomnia Last Admin: 12/11/24 21:02 Dose: 6 mg Documented By: JENNIFER Mirtazapine (Mirtazapine 15 Mg Tablet) 15 mg PO BEDTIME [facility] Last Admin: 12/12/24 20:43 Dose: 15 mg Documented By: JENNIFER Multivitamins/Vitamin C (Multivitamin Tablet) 1 tab PO DAILY [facility] Last Admin: 12/13/24 08:15 Dose: 1 tab Documented By: DON Naloxone HCl (Naloxone Hcl 0.4 Mg/Ml Vial) 0.4 mg SUBCUT Q2M PRN PRN Reason: Anaphylaxis Naloxone HCl (Naloxone Hcl Nasal 4 Mg [place]) 4 mg NOSTRILALT Q2M PRN PRN Reason: overdose Ondansetron HCl (Ondansetron Hcl 4 Mg/2 Ml Vial) 4 mg IVPUSH Q8H PRN PRN Reason: Nausea and Vomiting Oxycodone HCl (Oxycodone Hcl Immed Release 5 Mg Tablet) 5 mg PO Q6H PRN PRN Reason: Pain, Moderate(Pain Scale 4-6) Last Admin: 12/13/24 00:26 Dose: 5 mg Documented By: JENNIFER Sodium Chloride (0.9 % Sodium Chloride Flush 3 Ml Syringe) 3 ml IVFLUSH QSHIFT [facility] Last Admin: 12/13/24 08:15 Dose: 3 ml Documented By: DON Tamsulosin HCl (Tamsulosin Hcl 0.4 Mg Capsule) 0.4 mg PO BEDTIME [facility] Last Admin: 12/12/24 20:43 Dose: 0.4 mg Documented By: JENNIFER Thiamine HCl (Thiamine Hcl 100 Mg Tablet) 100 mg PO DAILY [facility] Last Admin: 12/13/24 08:15 Dose: 100 mg Documented By: DON Labs 12/12/24 06:28 12/13/24 08:45 Labs: Laboratory Results - last 24 hr 12/10/24 12/12/24 12/12/24 17:47 06:28 12:38 MCV 83.4 MCH 28.1 MCHC 33.7 RDW 17.4 H Plt Count 43 L D MPV 10.2 Immature Gran % (Auto) 0.6 H Neut % (Auto) 83.2 H Lymph % (Auto) 14.2 L [place] % (Auto) 1.6 L Eos % (Auto) 0.3 Baso % (Auto) 0.1 Lymph # (Auto) 1.0 L [place] # (Auto) 0.1 Eos # (Auto) 0.0 Baso # (Auto) 0.0 Abs Immat Gran (auto) 0.04 H Absolute Neuts (auto) 5.7 Absolute Nucleated RBC 0.000 Nucleated RBC % (auto) 0.0 Absolute Retic 0.011 L Percent Retic 0.5 Immature Retic Fraction 8.5 Retic Hgb Equivalent 34.8 PT INR APTT Fibrinogen Anion Gap Estim Creat Clear Calc Estimated GFR POC Glucose 101 Random Glucose Haptoglobin < 8 L Calcium Total Bilirubin AST ALT Alkaline Phosphatase Lactate Dehydrogenase 297 H Total Protein Albumin Blood Type B Positive Antibody Screen NEGATIVE Crossmatch See Detail 12/12/24 12/12/24 12/13/24 16:33 20:15 04:05 MCV MCH MCHC RDW Plt Count MPV Immature Gran % (Auto) Neut % (Auto) Lymph % (Auto) [place] % (Auto) Eos % (Auto) Baso % (Auto) Lymph # (Auto) [place] # (Auto) Eos # (Auto) Baso # (Auto) Abs Immat Gran (auto) Absolute Neuts (auto) Absolute Nucleated RBC Nucleated RBC % (auto) Absolute Retic Percent Retic Immature Retic Fraction Retic Hgb Equivalent PT INR APTT Fibrinogen Anion Gap Estim Creat Clear Calc Estimated GFR POC Glucose 81 80 69 Random Glucose Haptoglobin Calcium Total Bilirubin AST ALT Alkaline Phosphatase Lactate Dehydrogenase Total Protein Albumin Blood Type Antibody Screen Crossmatch 12/13/24 12/13/24 12/13/24 07:12 08:45 09:51 MCV MCH MCHC RDW Plt Count MPV Immature Gran % (Auto) Neut % (Auto) Lymph % (Auto) [place] % (Auto) Eos % (Auto) Baso % (Auto) Lymph # (Auto) [place] # (Auto) Eos # (Auto) Baso # (Auto) Abs Immat Gran (auto) Absolute Neuts (auto) Absolute Nucleated RBC Nucleated RBC % (auto) Absolute Retic Percent Retic Immature Retic Fraction Retic Hgb Equivalent PT 13.0 H INR 1.1 APTT 40.6 H D Fibrinogen 280 Anion Gap 12 Estim Creat Clear Calc 32.0 Estimated GFR 31 POC Glucose 83 Random Glucose 77 Haptoglobin Calcium 7.6 L Total Bilirubin 0.8 AST 237 H ALT 266 H Alkaline Phosphatase 387 H Lactate Dehydrogenase Total Protein 4.6 L Albumin 2.1 L Blood Type Antibody Screen Crossmatch Microbiology Microbiology Results: Microbiology 12/10/24 18:16 Blood Culture - Preliminary Blood - Venous No growth after 48 hours. 12/10/24 17:47 Blood Culture - Preliminary Blood - Venous No growth after 48 hours. Assessment and Plan (1) Acute blood loss anemia: Status: Acute (2) ABLA (acute blood loss anemia): Status: Acute Plan pt is a 64-year-old male with a PMH significant for?ESRD on HD T/, type I brittle diabetes, NSTEMI 11/2022, HLD, COPD, BPH, CHF, seizure disorder, anemia of chronic disease, chronic thrombocytopenia, hepatitis C, unspecified dementia, mood disorder, among others who presents to the ED from [facility] due to bleeding from his AV fistula. 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 Jarvis who suggested cryoprecipitate, FFP, Plat and vit K, all given INR is normal ?concern for TTP/HUS, check LOU TS 13 is pending hematology/nephro consult pending Acute blood loss anemia secondary to bleeding AV fistula hypothermia and hypoglycemia secondary to acute blood loss hemoglobin 6.4, hematocrit 19.4, given 1 unit PRBC in ED, H/H has improved, Hct 19 again today, transfuse 1 more unit during dialysis platelets is within baseline vascular consult, nothing to do monitor on tele follow CBC Lactic acidosis lactic acid 3.0 secondary to demand ischemia Elevated LFTs AST 459, ALT 352, ALP 427 secondary to demand ischemia, ?DIC, also patient with hepatitis-C, unclear if treated monitor LFTs ESRD on HD T// nephro consult Type 1 brittle diabetes hypoglycemic in ED, given dextrose 25 g x 1 POC Q2H x6H diabetic diet sliding scale insulin, avoid insulin if blood sugar under 200 HLD continue statin Hypothyroid check TSH continue levothyroxine Mood disorder continue home meds BPH continue tamsulosin Full code VTE prophylaxis: Pneumoboots due to thrombocytopenia and acute blood loss Patient with acute blood loss anemia requiring admission for at least 2 midnight stay for blood transfusion, monitoring and further evaluation. Consider dc if H/H staBLE Quality Stroke Does the patient have a stroke diagnosis?: No VTE Prior VTE?: No VTE Risk Level:: Medical - moderate - high VTE Device Contraindication: N/A - Device Ordered VTE Drug Contraindication: Treatment Not Indicated
[2024-12-13 11:04] LABS: Glucose, Whole Blood 81 mg/dL (60-115)
[2024-12-13 11:42] LABS: Platelet Count 37 X10*3/uL (160-400)
[2024-12-13 11:43] LABS: SLIDE REVIEW VERIFIED
--- NOTE | 2024-12-13 12:19 | P.DS_ITS ---
DS: Providers Provider Date of Service: 12/13/24 Date of admission: 12/10/24 19:21 Date of discharge: 12/13/24 Primary care physician: [facility] Consults: 12/10/24 21:41 Consult to Hematology / Oncology Routine Consulting Provider: Michell Mendoza Reason for consultation: ?DIC Has provider been notified: No Consult to Vascular Surgery Routine Consulting Provider: [facility] Reason for consultation: bleeding fistula Has provider been notified: No 12/10/24 21:42 Consult to Nephrology Routine Consulting Provider: [facility] Reason for consultation: ESRD on HD TThSa. concern for TTP/HUS? Has provider been notified: No DS: Diagnosis Discharge Diagnosis (1) Acute blood loss anemia: Status: Acute DS: Summary Hospital Course Hospital Course: admission hpi Chief Complaint: bleeding fistula Pt is a 64-year-old male with a PMH significant for?ESRD on HD T//Sat, type I brittle diabetes, NSTEMI 11/2022, HLD, COPD, BPH, CHF, seizure disorder, anemia of chronic disease, chronic thrombocytopenia, hepatitis C, unspecified dementia, mood disorder, among others who presents to the ED from [facility] due to bleeding from his AV fistula. The bleeding has been unable to be controlled since having dialysis. EMS applied a pressure dressing to try to control the bleed. In the ED the provider was able to place a [id number] suture she stopped the bleeding. Patient denies any trauma to the area aside from dialysis. He was also found to be hypoglycemic and hypothermic. He denies any chest pain, shortness of breath, cough, nausea, vomiting, abdominal pain, urinary frequency, urgency or dysuria. hospital course: pt is a 64-year-old male with a PMH significant for?ESRD on HD T//Sat, type I brittle diabetes, NSTEMI 11/2022, HLD, COPD, BPH, CHF, seizure disorder, anemia of chronic disease, chronic thrombocytopenia, hepatitis C, unspecified dementia, mood disorder, among others who presents to the ED from [facility] due to bleeding from his AV fistula. He was found to have Plat of 41 K, hemoglobin of 6.6, bleeding ultimately stopped with pressure. He was transfused 1 unit of platlets and 2 units of RBC, her platlet count was not significantly lower than his prior one. Last plat was 42 on 11/25 at that time was worked up for possible DIC. Hematology saw her and recommeded cryoprecipitate, FFP, Plat and vit K, all given. He has also had episode of hypoglycemia treated with glucose and presently stable, . 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 Jarvis who suggested cryoprecipitate, FFP, Plat and vit K, all given INR is normal, PTT 40, clinically doesn't appear to be DIC at this time. LOU TS 13 is pending Acute blood loss anemia secondary to bleeding AV fistula hypothermia and hypoglycemia secondary to acute blood loss hemoglobin was 6.4, hematocrit 19.4, given 1 unit PRBC in ED, H/H has improved, Hct 19 agin on 12/12 and transfused 1 more unit during dialysis, hemog lobin is now 9.6 and hematocrit 28.2 platelets is within baseline initially 42, and went up to 63 after plat transfusion and then 43 and today 37. Vascular surgery saw patient regarging bleeding vistula and needed no intervention at that time. Lactic acidosis lactic acid 3.0 secondary to demand ischemia Elevated LFTs AST 459, ALT 352, ALP 427 secondary to demand ischemia, ?D, also patient with hepatitis-C, unclear if treated monitor LFTs ESRD on HD T// nephro consult Type 1 brittle diabetes, had hypoglycemia, and given dextrose, these appear to be chronic issues due to his brittle diabetes To continue usual regimen HLD continue statin Hypothyroid check TSH continue levothyroxine Mood disorder continue home meds BPH continue tamsulosin Full code Time Attestation Discharge Coordination Time (in mins): 45 Quality: Safe Use of Opioids Does Pt have an Active Cancer Diagnosis on the Problem List?: No Quality: Stroke Does the patient have a stroke diagnosis?: No Physical Exam Vital Signs: Vital Signs: Last Vital Signs Temp 97.8 F 12/13/24 11:13 Pulse 83 12/13/24 11:13 Resp 20 12/13/24 11:13 BP 158/98 H 12/13/24 11:13 Pulse Ox 97 12/13/24 11:13 O2 Del Method Room Air 12/13/24 11:13 BMI result Body Mass Index 21.1 Const: Other: General: AO X 3, no acute distress Resp: CTA bilateral CVS: S1,S2,RRR GI: +BS, NT, no distention Skin: No rash Neuro: motor grossly intact Psych: appropriate affect DS: Data Data Completed and Pending Completed studies during hospitalization [Text1]: Procedures Insertion of Endotracheal Airway into Trachea, Via Natural or Artificial Opening (06/17/22) Insertion of Infusion Device into Superior Vena Cava, Percutaneous Approach (06/17/22) Performance of Urinary Filtration, Intermittent, Less than 6 Hours Per Day (11/22/24) Respiratory Ventilation, 24-96 Consecutive Hours (06/17/22) Transfusion of Nonautologous Red Blood Cells into Peripheral Vein, Percutaneous Approach (11/22/24) Ultrasonography of Superior Vena Cava, Guidance (06/17/22) Labs on day of discharge: Laboratory Results - last 24 hr 12/10/24 12/12/24 12/12/24 17:47 06:28 12:38 WBC 6.9 RBC 2.35 L Hgb 6.6 L* Hct 19.6 L* MCV 83.4 MCH 28.1 MCHC 33.7 RDW 17.4 H Plt Count 43 L D MPV 10.2 Immature Gran % (Auto) 0.6 H Neut % (Auto) 83.2 H Lymph % (Auto) 14.2 L [place] % (Auto) 1.6 L Eos % (Auto) 0.3 Baso % (Auto) 0.1 Lymph # (Auto) 1.0 L [place] # (Auto) 0.1 Eos # (Auto) 0.0 Baso # (Auto) 0.0 Abs Immat Gran (auto) 0.04 H Absolute Neuts (auto) 5.7 Absolute Nucleated RBC 0.000 Nucleated RBC % (auto) 0.0 Smear Tech's Comments Absolute Retic 0.011 L Percent Retic 0.5 Immature Retic Fraction 8.5 Retic Hgb Equivalent 34.8 PT INR APTT Fibrinogen Sodium Potassium Chloride Carbon Dioxide Anion Gap BUN Creatinine Estim Creat Clear Calc Estimated GFR POC Glucose 101 Random Glucose Haptoglobin < 8 L Calcium Total Bilirubin AST ALT Alkaline Phosphatase Lactate Dehydrogenase 297 H Total Protein Albumin Crossmatch See Detail 12/12/24 12/12/24 12/13/24 16:33 20:15 04:05 WBC RBC Hgb Hct MCV MCH MCHC RDW Plt Count MPV Immature Gran % (Auto) Neut % (Auto) Lymph % (Auto) [place] % (Auto) Eos % (Auto) Baso % (Auto) Lymph # (Auto) [place] # (Auto) Eos # (Auto) Baso # (Auto) Abs Immat Gran (auto) Absolute Neuts (auto) Absolute Nucleated RBC Nucleated RBC % (auto) Smear Tech's Comments Absolute Retic Percent Retic Immature Retic Fraction Retic Hgb Equivalent PT INR APTT Fibrinogen Sodium Potassium Chloride Carbon Dioxide Anion Gap BUN Creatinine Estim Creat Clear Calc Estimated GFR POC Glucose 81 80 69 Random Glucose Haptoglobin Calcium Total Bilirubin AST ALT Alkaline Phosphatase Lactate Dehydrogenase Total Protein Albumin Crossmatch 12/13/24 12/13/24 12/13/24 07:12 08:45 09:51 WBC 9.6 RBC 3.30 L D Hgb 9.6 L D Hct 28.2 L D MCV 85.5 MCH 29.1 MCHC 34.0 RDW 16.5 H Plt Count 37 L MPV 10.9 Immature Gran % (Auto) 0.7 H Neut % (Auto) 83.8 H Lymph % (Auto) 11.6 L [place] % (Auto) 3.7 Eos % (Auto) 0.1 Baso % (Auto) 0.1 Lymph # (Auto) 1.1 L [place] # (Auto) 0.4 Eos # (Auto) 0.0 Baso # (Auto) 0.0 Abs Immat Gran (auto) 0.07 H Absolute Neuts (auto) 8.1 Absolute Nucleated RBC 0.000 Nucleated RBC % (auto) 0.0 Smear Tech's Comments VERIFIED Absolute Retic Percent Retic Immature Retic Fraction Retic Hgb Equivalent PT 13.0 H INR 1.1 APTT 40.6 H D Fibrinogen 280 Sodium 136 Potassium 4.3 D Chloride 100 Carbon Dioxide 28 Anion Gap 12 BUN 30 H Creatinine 2.19 H Estim Creat Clear Calc 32.0 Estimated GFR 31 POC Glucose 83 Random Glucose 77 Haptoglobin Calcium 7.6 L Total Bilirubin 0.8 AST 237 H ALT 266 H Alkaline Phosphatase 387 H Lactate Dehydrogenase Total Protein 4.6 L Albumin 2.1 L Crossmatch 12/13/24 11:00 WBC RBC Hgb Hct MCV MCH MCHC RDW Plt Count MPV Immature Gran % (Auto) Neut % (Auto) Lymph % (Auto) [place] % (Auto) Eos % (Auto) Baso % (Auto) Lymph # (Auto) [place] # (Auto) Eos # (Auto) Baso # (Auto) Abs Immat Gran (auto) Absolute Neuts (auto) Absolute Nucleated RBC Nucleated RBC % (auto) Smear Tech's Comments Absolute Retic Percent Retic Immature Retic Fraction Retic Hgb Equivalent PT INR APTT Fibrinogen Sodium Potassium Chloride Carbon Dioxide Anion Gap BUN Creatinine Estim Creat Clear Calc Estimated GFR POC Glucose 81 Random Glucose Haptoglobin Calcium Total Bilirubin AST ALT Alkaline Phosphatase Lactate Dehydrogenase Total Protein Albumin Crossmatch Preliminary micro results at discharge 12/10/24 18:16 Blood Culture - Preliminary Blood - Venous No growth after 48 hours. 12/10/24 17:47 Blood Culture - Preliminary Blood - Venous No growth after 48 hours. Discharge Plan Discharge Anticipated Discharge Date/Time: 12/13/24 12:19 Patient Disposition: er [facility] Discharge Diagnosis: Acute blood loss anemia, chronic thrombocytopenia, Referrals: [place] [Primary Care Provider] - 1 Week Discharge Medications: Continued tamsulosin 0.4 mg capsule 1 cap PO BEDTIME mirtazapine 15 mg tablet 15 mg PO BEDTIME insulin lispro [Humalog U-100 Insulin] 100 unit/mL Solution See Protocol SUBCUT TIDAC Protocol: Insulin Correction Scale Less than or equal to 110 ---- Give (units): 0 111 to 150 Give (units): 0 151 to 200 Give (units): 1 201 to 250 Give (units): 2 251 to 300 Give (units): 2 301 to 350 Give (units): 3 Greater than 350 Give (units): 3 Call MD if Blood Glucose > : 400 duloxetine 60 mg capsule,delayed release(DR/EC) 60 mg PO DAILY oxycodone 5 mg Tablet 5 mg PO Q6H PRN (Reason: Pain (Scale Score 4-6)) Rx Instructions: pain for right hip melatonin 5 mg Tablet 5 mg PO BEDTIME naloxone 0.4 mg/mL Solution 0.4 mg SUBCUT Q2M PRN (Reason: Anaphylaxis) Rx Instructions: NTExceed 10 mg total dose/episode cyanocobalamin (vitamin B-12) 1,000 mcg Tablet 1,000 mcg PO DAILY thiamine HCl (vitamin B1) 100 mg Tablet 100 mg PO DAILY folic acid 1 mg Tablet 1 mg PO DAILY ergocalciferol (vitamin D2) 1,250 mcg (50,000 unit) Capsule 1,250 mcg PO WE@0900 epinephrine [EpiPen] 0.3 mg/0.3 mL Auto-Injector 0.3 mg IM Q5M PRN (Reason: Anaphylaxis) Rx Instructions: for 2 doses cholecalciferol (vitamin D3) 1,250 mcg (50,000 unit) Capsule 1,250 mcg PO WE naloxone 4 mg/actuation [place],Non-Aerosol 4 mg INTRANASAL Q2M PRN (Reason: overdose) Rx Instructions: spray 1 dose into ONE nostril; alternate nostrils w each dose until help arrives Gv[place] 1 mg/0.2 mL Solution 1 mg SUBCUT Q15M PRN (Reason: low BS) Rx Instructions: until target blood sugar attained levothyroxine 25 mcg Tablet 25 mcg PO DAILY@0600 Qty: 90 0RF carvedilol 3.125 mg tablet 3.125 mg PO BID ergocalciferol (vitamin D2) [Vitamin D2] 1,250 mcg (50,000 unit) Capsule 1,250 mcg PO QMONTH Rx Instructions: give on the of the month insulin glargine [Lantus Solostar U-100 Insulin] 100 unit/mL (3 mL) insulin pen 1 unit subcut BEDTIME Nephron FA 66 mg iron- 1,000 mcg Tablet 1 tab PO DAILY Discontinued acetaminophen 325 mg Tablet 650 mg PO Q6H PRN (Reason: Fever Or Pain) acetaminophen 650 mg Suppository 650 mg HI Q6H PRN (Reason: Fever Or Pain) Diet: Advance to usual diet Activity on Discharge: As tolerated Stand Alone Forms: Patient Portal Discharge page Print Language: Portuguese Care Plan Goals: recovery from acute blood loss anemia from bleeding fistura Health Concerns: chronic anemia recurrent hypglycemia, brittle diabetes chronic thrombocytepenia Plan of Treatment: to resume all prior medication and follow up with dialysis as before to follow up with hematorlogy from chronic thrombocetopenia Assessment: see above
[2024-12-13 13:12] LABS: Hemoglobin 10.1 g/dl (14.0-18.0); Mean Corpuscular HGB Conc 34.8 g/dl (31.0-36.0); Mean Corpuscular Hemoglobin 29.5 pg (27.0-33.0); Mean Corpuscular Volume 84.8 fL (80.0-98.0); Platelet Count 40 X10*3/uL (160-400); Red Blood Count 3.42 X10*6/uL (4.60-5.80); Red Cell Distribution Width 16.6 % (11.0-16.0)
--- NOTE | 2024-12-13 14:29 | MHC.CM.PN ---
Addendum entered by Chelle Mcmillan RN 12/13/24 14:31: Nina to obtain [facility] auth. Original Note: Per MD medically cleared for dc back to LTC @ [facility]. BLS transport scheduled for 5pm. RN and aware. HCP Aaliyah called and updated. YOVANI Quispe @ SN[facility] aware.
[2024-12-13 16:40] LABS: Glucose, Whole Blood 46 mg/dL (60-115)
[2024-12-13] MEDS: Dextrose 50 % 25 GM/50 ML SYRINGE IVPUSH (16:43)
[2024-12-13 16:55] LABS: Glucose, Whole Blood 75 mg/dL (60-115)
[2024-12-13 17:38] LABS: Glucose, Whole Blood 99 mg/dL (60-115)
[2024-12-13] MEDS: Tamsulosin HCL 0.4 MG CAPSULE PO (19:39)
[2024-12-13] MEDS: Mirtazapine 15 MG TABLET PO (19:40)
[2024-12-13 20:16] LABS: Glucose, Whole Blood 119 mg/dL (60-115)
[2024-12-14] VITALS (8 sets, daily range): BP systolic 133–155; BP diastolic 81–97; PULSE 86–93; RESP 16–20; TEMP 36.4–38.3; O2SAT 95–99; BMI 21.1
[2024-12-14] MEDS: Levothyroxine Sodium 25 MCG TABLET PO (05:19)
[2024-12-14 07:11] LABS: Glucose, Whole Blood 60 mg/dL (60-115)
[2024-12-14] MEDS: 0.9 % Sodium Chloride Flush 3 ML SYRINGE IVFLUSH ×3 (08:19→21:31)
[2024-12-14] MEDS: oxyCODONE HCl Immed Release 5 MG TABLET PO ×3 (08:19→22:45)
[2024-12-14] MEDS: Multivitamin TABLET 1 TAB PO (08:19)
[2024-12-14] MEDS: Folic Acid 1 MG TABLET PO (08:19)
[2024-12-14] MEDS: DULoxetine HCl 60 MG CAPSULE.DR PO (08:19)
[2024-12-14] MEDS: Cyanocobalamin (Vitamin B-12) 1,000 MCG TABLET 1000 MCG PO (08:19)
[2024-12-14] MEDS: Thiamine HCL 100 MG TABLET PO (08:19)
[2024-12-14 11:11] LABS: Glucose, Whole Blood 49 mg/dL (60-115)
--- NOTE | 2024-12-14 11:43 | P.PNIM_ITS ---
Subjective Subjective Date of Service: 12/14/24 Interval History: He's hypotermic again His high temp this morning was due to warming blanket when his temp was 97.5 Blood sugar was in 60s and 40s today. I reviewed prior record, he has chronic hypoglycemia random cortisol earlier was negative, last tsh on 12/10 was 22 and LT4 was adjusted Physical Exam 2 Vital Signs: Vital Signs: Last Vital Signs Temp 100.9 F H 12/14/24 08:00 Pulse 86 12/14/24 11:25 Resp 20 12/14/24 11:25 BP 147/97 H 12/14/24 11:25 Pulse Ox 99 12/14/24 11:25 O2 Del Method Room Air 12/14/24 11:25 BMI result Body Mass Index 21.1 Const: Other: General: AO X 3, no acute distress Resp: CTA bilateral CVS: S1,S2,RRR GI: +BS, NT, no distention Skin: No rash Neuro: motor grossly intact Psych: appropriate affect Objective Data Active Medications Acetaminophen (Acetaminophen 325 Mg Tablet) 650 mg PO Q6H PRN PRN Reason: Pain, Mild 1-3,fever,headache Calcium Carbonate (Calcium Carbonate 750 Mg Tab.Chew) 750 mg PO Q4H PRN PRN Reason: Heartburn Cyanocobalamin (Cyanocobalamin (Vitamin B-12) 1,000 Mcg Tablet) 1,000 mcg PO DAILY [facility] Last Admin: 12/14/24 08:19 Dose: 1,000 mcg Documented By: ROOSEVELT Dextrose (Dextrose 50 % 25 Gm/50 Ml Syringe) 25 gm IVPUSH Q15M PRN; Protocol PRN Reason: per Hypoglycemia Standing Ord. Last Admin: 12/13/24 16:43 Dose: 25 gm Documented By: DON Duloxetine HCl (Duloxetine Hcl 60 Mg Capsule.Dr) 60 mg PO DAILY [facility] Last Admin: 12/14/24 08:19 Dose: 60 mg Documented By: ROOSEVELT Ergocalciferol (Ergocalciferol (Vitamin D2) 1,250 Mcg Capsule) 1,250 mcg PO WE@0900 [facility] Ergocalciferol (Ergocalciferol (Vitamin D2) 1,250 Mcg Capsule) 1,250 mcg PO Q30D@0900 [facility] Folic Acid (Folic Acid 1 Mg Tablet) 1 mg PO DAILY [facility] Last Admin: 12/14/24 08:19 Dose: 1 mg Documented By: ROOSEVELT Glucose (Glucose Gel 15 Gm Gel..Gram.) 15 gm PO Q15M PRN; Protocol PRN Reason: per Hypoglycemia Standing Ord. Last Admin: 12/13/24 04:07 Dose: 15 gm Documented By: JENNIFER Hydromorphone HCl (Hydromorphone Hcl 0.5 Mg/0.5 Ml Syringe) 0.25 mg IVPUSH Q4H PRN; Protocol PRN Reason: Pain, Severe (Pain Scale 7-10) Last Admin: 12/13/24 19:45 Dose: 0.25 mg Documented By: VALERIANO Insulin Human Lispro (Insulin Lispro 100 Unit/Ml 3 Ml Vial) 0 unit SUBCUT QIDACHS [facility]; Protocol Last Admin: 12/14/24 11:23 Dose: Not Given Documented By: ROOSEVELT Non-Admin Reason: No Insulin Coverage Levothyroxine Sodium (Levothyroxine Sodium 25 Mcg Tablet) 25 mcg PO DAILY@0600 [facility] Last Admin: 12/14/24 05:19 Dose: 25 mcg Documented By: VALERIANO Magnesium Hydroxide (Milk Of Magnesia 30 Ml Oral.Susp) 30 ml PO DAILY PRN PRN Reason: Constipation Melatonin (Melatonin 3 Mg Tablet) 6 mg PO BEDTIME PRN PRN Reason: Insomnia Last Admin: 12/11/24 21:02 Dose: 6 mg Documented By: JENNIEFR Mirtazapine (Mirtazapine 15 Mg Tablet) 15 mg PO BEDTIME [facility] Last Admin: 12/13/24 19:40 Dose: 15 mg Documented By: VALERIANO Multivitamins/Vitamin C (Multivitamin Tablet) 1 tab PO DAILY [facility] Last Admin: 12/14/24 08:19 Dose: 1 tab Documented By: ROOSEVELT Naloxone HCl (Naloxone Hcl 0.4 Mg/Ml Vial) 0.4 mg SUBCUT Q2M PRN PRN Reason: Anaphylaxis Naloxone HCl (Naloxone Hcl Nasal 4 Mg [place]) 4 mg NOSTRILALT Q2M PRN PRN Reason: overdose Ondansetron HCl (Ondansetron Hcl 4 Mg/2 Ml Vial) 4 mg IVPUSH Q8H PRN PRN Reason: Nausea and Vomiting Oxycodone HCl (Oxycodone Hcl Immed Release 5 Mg Tablet) 5 mg PO Q6H PRN PRN Reason: Pain, Moderate(Pain Scale 4-6) Last Admin: 12/14/24 08:19 Dose: 5 mg Documented By: ROOSEVELT Sodium Chloride (0.9 % Sodium Chloride Flush 3 Ml Syringe) 3 ml IVFLUSH QSHIFT [facility] Last Admin: 12/14/24 08:19 Dose: 3 ml Documented By: ROOSEVELT Tamsulosin HCl (Tamsulosin Hcl 0.4 Mg Capsule) 0.4 mg PO BEDTIME [facility] Last Admin: 12/13/24 19:39 Dose: 0.4 mg Documented By: VALERIANO Thiamine HCl (Thiamine Hcl 100 Mg Tablet) 100 mg PO DAILY [facility] Last Admin: 12/14/24 08:19 Dose: 100 mg Documented By: ROOSEVELT Labs 12/13/24 12:57 12/13/24 08:45 Labs: Laboratory Results - last 24 hr 12/13/24 12/13/24 12/13/24 08:45 09:51 12:57 MCV 85.5 84.8 MCH 29.1 29.5 MCHC 34.0 34.8 RDW 16.5 H 16.6 H Plt Count 37 L 40 L MPV 10.9 10.0 Immature Gran % (Auto) 0.7 H Neut % (Auto) 83.8 H Lymph % (Auto) 11.6 L [place] % (Auto) 3.7 Eos % (Auto) 0.1 Baso % (Auto) 0.1 Lymph # (Auto) 1.1 L [place] # (Auto) 0.4 Eos # (Auto) 0.0 Baso # (Auto) 0.0 Abs Immat Gran (auto) 0.07 H Absolute Neuts (auto) 8.1 Absolute Nucleated RBC 0.000 0.000 Nucleated RBC % (auto) 0.0 0.0 Smear Tech's Comments VERIFIED Anion Gap 12 Estim Creat Clear Calc 32.0 Estimated GFR 31 POC Glucose Random Glucose 77 Calcium 7.6 L Total Bilirubin 0.8 AST 237 H ALT 266 H Alkaline Phosphatase 387 H Total Protein 4.6 L Albumin 2.1 L 12/13/24 12/13/24 12/13/24 16:36 16:52 17:33 MCV MCH MCHC RDW Plt Count MPV Immature Gran % (Auto) Neut % (Auto) Lymph % (Auto) [place] % (Auto) Eos % (Auto) Baso % (Auto) Lymph # (Auto) [place] # (Auto) Eos # (Auto) Baso # (Auto) Abs Immat Gran (auto) Absolute Neuts (auto) Absolute Nucleated RBC Nucleated RBC % (auto) Smear Tech's Comments Anion Gap Estim Creat Clear Calc Estimated GFR POC Glucose 46 L* 75 99 Random Glucose Calcium Total Bilirubin AST ALT Alkaline Phosphatase Total Protein Albumin 12/13/24 12/14/24 12/14/24 20:12 07:07 11:06 MCV MCH MCHC RDW Plt Count MPV Immature Gran % (Auto) Neut % (Auto) Lymph % (Auto) [place] % (Auto) Eos % (Auto) Baso % (Auto) Lymph # (Auto) [place] # (Auto) Eos # (Auto) Baso # (Auto) Abs Immat Gran (auto) Absolute Neuts (auto) Absolute Nucleated RBC Nucleated RBC % (auto) Smear Tech's Comments Anion Gap Estim Creat Clear Calc Estimated GFR POC Glucose 119 H 60 49 L* Random Glucose Calcium Total Bilirubin AST ALT Alkaline Phosphatase Total Protein Albumin Assessment and Plan (1) Acute blood loss anemia: Status: Acute (2) ABLA (acute blood loss anemia): Status: Acute Plan pt is a 64-year-old male with a PMH significant for?ESRD on HD T/, type I brittle diabetes, NSTEMI 11/2022, HLD, COPD, BPH, CHF, seizure disorder, anemia of chronic disease, chronic thrombocytopenia, hepatitis C, unspecified dementia, mood disorder, among others who presents to the ED from [facility] due to bleeding from his AV fistula. 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 Jarvis who suggested cryoprecipitate, FFP, Plat and vit K, all given INR is normal ?concern for TTP/HUS, check LOU TS 13 is pending hematology/nephro consult pending Acute blood loss anemia secondary to bleeding AV fistula hemoglobin qA 6.4, hematocrit 19.4, given 2 unit PRBC, h/hnow 05/19 platelets is within baseline~ 40 vascular consult, nothing to do follow CBC Hypothermia this has also being chronic issues, had warming blanket and resolved, could be relatedto hypoglycemia Hypoglycemia, recurrent, type 1 diabetes that is brittle in nature, blood sugars in 40s and 60s today hypoglycemia protocol check tsh, A1C,and random cortisol Lactic acidosis lactic acid 3.0 secondary to demand ischemia Elevated LFTs AST 459, ALT 352, ALP 427 secondary to demand ischemia, ?DIC, also patient with hepatitis-C, unclear if treated monitor LFTs ESRD on HD T//Sa nephro consult HLD continue statin Hypothyroid check TSH continue levothyroxine Mood disorder continue home meds BPH continue tamsulosin Full code VTE prophylaxis: Pneumoboots due to thrombocytopenia and acute blood loss Patient with acute blood loss anemia requiring admission for at least 2 midnight stay for blood transfusion, monitoring and further evaluation. Consider dc if H/H staBLE Quality Stroke Does the patient have a stroke diagnosis?: No VTE Prior VTE?: No VTE Risk Level:: Medical - moderate - high VTE Device Contraindication: N/A - Device Ordered VTE Drug Contraindication: Treatment Not Indicated
[2024-12-14 11:44] LABS: Glucose, Whole Blood 51 mg/dL (60-115)
[2024-12-14] MEDS: Dextrose 50 % 25 GM/50 ML SYRINGE IVPUSH (11:49)
[2024-12-14 12:38] LABS: Glucose, Whole Blood 150 mg/dL (60-115)
[2024-12-14 12:52] LABS: Cortisol Random 35.6 ug/dL; TSH reflex Free T4 6.15 uIU/mL (0.32-4.0)
[2024-12-14 13:31] LABS: Free T4 (Free Thyroxine) 0.56 ng/dL (0.71-1.85)
[2024-12-14 13:49] LABS: Estimated Average Glucose 157 mg/dL; Hemoglobin A1C 146.4121 umol/L; Hemoglobin A1c % 7.1 % (<6.0); Total Hemoglobin (HGBA1C) 2728.3438 umol/L
[2024-12-14 14:31] LABS: Glucose, Whole Blood 114 mg/dL (60-115)
--- NOTE | 2024-12-14 14:44 | MHC.CLN ---
NUTRITION DIET=DIABETIC 2000 [facility]. PATIENT WITH ESRD ON HEMODIALYSIS. PO VARIABLE, 0-100%, WITH AVG INTAKE 25%. IMPAIRED SKIN ID 12/11 REDNESS/OPEN AREA TO COCCYX. NO ADDITIONAL WOUND INFO AT TIME OF ASSESSMENT. FOLLOW FOR PO INTAKE AND SKIN INTEGRITY. CONSIDER NUTRITIONAL SUPPLEMENT IF WOUND DETERMINED TO BE PI. SEE CLINICAL NUTRITION ASSESSMENT 12/14/24.
[2024-12-14 15:04] LABS: Anion Gap 17 (12-20); Blood Urea Nitrogen 42 mg/dL (9-16); Calcium 7.5 mg/dL (8.4-10.2); Carbon Dioxide 23 mmol/L (22-29); Chloride 99 mmol/L (96-108); Creatinine Clr Calc Pharmacy 26.9; Estimated Glomerular Filt Rate 25; Glucose Random 113 mg/dL (60-115); Potassium 4.7 mmol/L (3.3-5.1); Sodium 134 mmol/L (135-145)
[2024-12-14 15:47] LABS: Glucose, Whole Blood 114 mg/dL (60-115)
[2024-12-14] MEDS: Dextrose 5 % and 0.45 % NaCl 1,000 ML 80 ML IVCONT (16:25)
[2024-12-14] MEDS: Docusate Sodium 100 MG CAPSULE PO (18:42)
[2024-12-14 20:00] LABS: Glucose, Whole Blood 114 mg/dL (60-115)
[2024-12-14] MEDS: Mirtazapine 15 MG TABLET PO (21:27)
[2024-12-14] MEDS: Tamsulosin HCL 0.4 MG CAPSULE PO (21:27)
[2024-12-15] VITALS (11 sets, daily range): BP systolic 87–156; BP diastolic 47–88; PULSE 80–100; RESP 16–21; TEMP 34.3–37; O2SAT 94–100; BMI 19.0
--- NOTE | 2024-12-15 | ECG_ITS ---
Test Reason : cardiac arrest, s/p intubation Blood Pressure : */* mmHG Vent. Rate : 86 BPM Atrial Rate : 86 BPM P-R Int : 176 ms QRS Dur : 116 ms QT Int : 494 ms P-R-T Axes : * 26 203 degrees QTcB Int : 591 ms Normal sinus rhythm Low voltage QRS ST & T wave abnormality, consider anterolateral ischemia Prolonged QT Abnormal ECG When compared to the previous EKG of No significant changes seen Referred By: Ector Villar Electronically Signed By: CATHY KAPLAN MD
[2024-12-15] MEDS: Dextrose 5 % and 0.45 % NaCl 1,000 ML 80 ML IVCONT (04:10)
[2024-12-15] MEDS: Levothyroxine Sodium 25 MCG TABLET PO (05:57)
[2024-12-15] MEDS: oxyCODONE HCl Immed Release 5 MG TABLET PO ×2 (05:57→14:49)
[2024-12-15 07:16] LABS: Glucose, Whole Blood 61 mg/dL (60-115)
[2024-12-15] MEDS: Acetaminophen 325 MG TABLET 650 MG PO (07:58)
[2024-12-15] MEDS: DULoxetine HCl 60 MG CAPSULE.DR PO (07:58)
[2024-12-15] MEDS: Thiamine HCL 100 MG TABLET PO (07:58)
[2024-12-15] MEDS: Docusate Sodium 100 MG CAPSULE PO (07:58)
[2024-12-15] MEDS: Multivitamin TABLET 1 TAB PO (07:58)
[2024-12-15] MEDS: Cyanocobalamin (Vitamin B-12) 1,000 MCG TABLET 1000 MCG PO (07:59)
[2024-12-15] MEDS: Folic Acid 1 MG TABLET PO (07:59)
[2024-12-15 11:53] LABS: Glucose, Whole Blood 53 mg/dL (60-115)
--- NOTE | 2024-12-15 12:03 | P.PNVS_ITS ---
Subjective Subjective Date of Service: 12/15/24 Patient reports: no new complaints Interval history: Patient seen and examined while on dialysis this morning. He appears to be getting appropriate dialysis through his fistula. It does have a fair amount of bruising. Concern was continued bleeding upon admission which seems to have been contained but he has developed a fairly large size hematoma. He now presents for routine follow-up Physical Exam Vital Signs: Vital Signs: Last Vital Signs Temp 98.6 F 12/15/24 11:18 Pulse 92 12/15/24 11:18 Resp 16 12/15/24 11:18 BP 96/47 L 12/15/24 11:18 Pulse Ox 97 12/15/24 11:18 O2 Del Method Room Air 12/15/24 11:18 BMI result Body Mass Index 21.1 Const: General: cooperative, healthy appearing and comfortable Orientation/consciousness: oriented to person, oriented to place and oriented to time HEENT: Head: Yes normal to inspection Neck: Neck: Yes normal visual inspection Carotids: no bruits Chest: Chest palpation & inspection: normal inspection of the chest Resp: Effort & Inspection: normal respiratory effort and able to speak in complete sentences Auscultation: clear to auscultation bilaterally, no crackles, no rales, no rhonchi and no wheezes Cardio: Rate: regular rate Rhythm: regular rhythm Heart sounds: S1 normal heart sound present and S2 normal heart sound present Bruits: no carotid bruits Peripheral pulses: Peripheral pulses 2+ throughout GI: Inspection: Yes normal to inspection Skin: Wounds: no wounds Hair: normal Neuro: General: oriented to person, oriented to place and oriented to time Cranial nerves: Yes CN's II-XII intact bilaterally and Yes Normal hearing p resent Cognition (Neuro): normal cognition Motor exam (neuro): 5/5 motor strength present throughout Extrem: Other: Left upper extremity fistula does appear to be functioning well. Appropriate flow rates while on dialysis. Hematoma surrounding. General: No clubbing, No cyanosis and No edema Psych: Appearance: grossly normal Mental Status: mental status grossly normal Speech and movement: Normal speech and movement present Progress Note: A&P Assessment and plan (1) ESRD (end stage renal disease) on dialysis: Status: Acute Assessment and Plan: In short patient does appear to have an appropriately functioning fistula. Bleeding will be a consistent problem with him would due to his thrombocytopenia in addition to irregular coagulation profile. Would recommend outpatient follow-up with [facility] team who has put in the main dialysis access. Patient will follow up with us added as the patient this. Thank you for allowing us to assist in his care. If there are any questions or concerns please do not hesitate to contact us. Time Spent With Patient Time: Total time managing care of this patient today ____ minutes. Procedures Date of Service Date of Service: 12/15/24 Quality Stroke Does the patient have a stroke diagnosis?: No VTE Prior VTE?: No VTE Risk Level:: Medical - moderate - high VTE Device Contraindication: N/A - Device Ordered VTE Drug Contraindication: Treatment Not Indicated
[2024-12-15] MEDS: Albumin Human 25 % 100 ML IV ×2 (13:46→15:47)
[2024-12-15] MEDS: Dextrose 5 % and 0.45 % NaCl 1,000 ML 100 ML IVCONT (14:55)
[2024-12-15] MEDS: 0.9 % Sodium Chloride Flush 3 ML SYRINGE IVFLUSH (14:56)
--- NOTE | 2024-12-15 15:40 | MHC.CM.PN ---
EMR reviewed and per MD rounds, pt is not medically cleared for discharge due to management of acute blood loss anemia, and hypoglycemia.
[2024-12-15 16:14] LABS: Glucose, Whole Blood 43 mg/dL (60-115)
[2024-12-15] MEDS: Dextrose 50 % 25 GM/50 ML SYRINGE IVPUSH (16:16)
[2024-12-15 16:55] LABS: Glucose, Whole Blood 108 mg/dL (60-115)
[2024-12-15] MEDS: Dextrose 10 % 1,000 ML 60 ML IVCONT (17:54)
[2024-12-15 18:10] LABS: Glucose, Whole Blood 110 mg/dL (60-115)
--- NOTE | 2024-12-15 18:41 | P.PNIM_ITS ---
Subjective Subjective Date of Service: 12/16/24 Interval History: hypoglycemia Review of Systems dec po intake Review of Systems: Yes all other systems are reviewed and are negative Physical Exam 2 Vital Signs: Vital Signs: Last Vital Signs Temp 97.6 F 12/15/24 15:04 Pulse 85 12/15/24 15:04 Resp 16 12/15/24 15:04 BP 100/58 L 12/15/24 15:04 Pulse Ox 94 12/15/24 15:04 O2 Del Method Room Air 12/15/24 15:04 BMI result Body Mass Index 21.1 General: AO X 3, no acute distress Resp: CTA bilateral CVS: S1,S2,RRR GI: +BS, NT, no distention Skin: No rash Neuro: motor grossly intact Psych: appropriate affect Objective Data Active Medications Acetaminophen (Acetaminophen 325 Mg Tablet) 650 mg PO Q6H PRN PRN Reason: Pain, Mild 1-3,fever,headache Last Admin: 12/15/24 07:58 Dose: 650 mg Documented By: ROOSEVELT Calcium Carbonate (Calcium Carbonate 750 Mg Tab.Chew) 750 mg PO Q4H PRN PRN Reason: Heartburn Cyanocobalamin (Cyanocobalamin (Vitamin B-12) 1,000 Mcg Tablet) 1,000 mcg PO DAILY [facility] Last Admin: 12/15/24 07:59 Dose: 1,000 mcg Documented By: ROOSEVELT Dextrose (Dextrose 50 % 25 Gm/50 Ml Syringe) 25 gm IVPUSH Q15M PRN; Protocol PRN Reason: per Hypoglycemia Standing Ord. Last Admin: 12/15/24 16:16 Dose: 25 gm Documented By: ROOSEVELT Docusate Sodium (Docusate Sodium 100 Mg Capsule) 100 mg PO BID [facility] Last Admin: 12/15/24 07:58 Dose: 100 mg Documented By: ROOSEVELT Duloxetine HCl (Duloxetine Hcl 60 Mg Capsule.Dr) 60 mg PO DAILY [facility] Last Admin: 12/15/24 07:58 Dose: 60 mg Documented By: ROOSEVELT Ergocalciferol (Ergocalciferol (Vitamin D2) 1,250 Mcg Capsule) 1,250 mcg PO WE@0900 [facility] Ergocalciferol (Ergocalciferol (Vitamin D2) 1,250 Mcg Capsule) 1,250 mcg PO Q30D@0900 [facility] Folic Acid (Folic Acid 1 Mg Tablet) 1 mg PO DAILY [facility] Last Admin: 12/15/24 07:59 Dose: 1 mg Documented By: ROOSEVELT Glucose (Glucose Gel 15 Gm Gel..Gram.) 15 gm PO Q15M PRN; Protocol PRN Reason: per Hypoglycemia Standing Ord. Last Admin: 12/13/24 04:07 Dose: 15 gm Documented By: JENNIFER Dextrose (D10) 1,000 mls @ 60 mls/hr IVCONT .[id number] [facility] Last Admin: 12/15/24 17:54 Dose: 60 mls/hr Documented By: ROOSEVELT Insulin Human Lispro (Insulin Lispro 100 Unit/Ml 3 Ml Vial) 0 unit SUBCUT QIDACHS [facility]; Protocol Last Admin: 12/15/24 16:14 Dose: Not Given Documented By: ROOSEVELT Non-Admin Reason: No Insulin Coverage Levothyroxine Sodium (Levothyroxine Sodium 25 Mcg Tablet) 25 mcg PO DAILY@0600 [facility] Last Admin: 12/15/24 05:57 Dose: 25 mcg Documented By: ILANA Magnesium Hydroxide (Milk Of Magnesia 30 Ml Oral.Susp) 30 ml PO DAILY PRN PRN Reason: Constipation Melatonin (Melatonin 3 Mg Tablet) 6 mg PO BEDTIME PRN PRN Reason: Insomnia Last Admin: 12/11/24 21:02 Dose: 6 mg Documented By: JENNIFER Mirtazapine (Mirtazapine 15 Mg Tablet) 15 mg PO BEDTIME [facility] Last Admin: 12/14/24 21:27 Dose: 15 mg Documented By: ILANA Multivitamins/Vitamin C (Multivitamin Tablet) 1 tab PO DAILY [facility] Last Admin: 12/15/24 07:58 Dose: 1 tab Documented By: ROOSEVELT Naloxone HCl (Naloxone Hcl 0.4 Mg/Ml Vial) 0.4 mg SUBCUT Q2M PRN PRN Reason: Anaphylaxis Naloxone HCl (Naloxone Hcl Nasal 4 Mg [place]) 4 mg NOSTRILALT Q2M PRN PRN Reason: overdose Ondansetron HCl (Ondansetron Hcl 4 Mg/2 Ml Vial) 4 mg IVPUSH Q8H PRN PRN Reason: Nausea and Vomiting Oxycodone HCl (Oxycodone Hcl Immed Release 5 Mg Tablet) 5 mg PO Q6H PRN PRN Reason: Pain, Moderate(Pain Scale 4-6) Last Admin: 12/15/24 14:49 Dose: 5 mg Documented By: ROOSEVELT Sodium Chloride (0.9 % Sodium Chloride Flush 3 Ml Syringe) 3 ml IVFLUSH QSHIFT [facility] Last Admin: 12/15/24 14:56 Dose: 3 ml Documented By: ROOSEVELT Tamsulosin HCl (Tamsulosin Hcl 0.4 Mg Capsule) 0.4 mg PO BEDTIME [facility] Last Admin: 12/14/24 21:27 Dose: 0.4 mg Documented By: POTJOSUE Thiamine HCl (Thiamine Hcl 100 Mg Tablet) 100 mg PO DAILY [facility] Last Admin: 12/15/24 07:58 Dose: 100 mg Documented By: ROOSEVELT Labs 12/16/24 03:12 12/16/24 04:25 Labs: Laboratory Results - last 24 hr 12/11/24 12/14/24 12/15/24 06:27 19:53 07:12 [id number] Activity Intrp 0.50 L POC Glucose 114 61 12/15/24 12/15/24 12/15/24 11:49 16:09 16:52 [id number] Activity Intrp POC Glucose 53 L* 43 L* 108 12/15/24 18:06 [id number] Activity Intrp POC Glucose 110 Assessment and Plan (1) Acute blood loss anemia: Status: Acute (2) ABLA (acute blood loss anemia): Status: Acute Plan pt is a 64-year-old male with a PMH significant for?ESRD on HD //Sat, type I brittle diabetes, NSTEMI 11/2022, HLD, COPD, BPH, CHF, seizure disorder, anemia of chronic disease, chronic thrombocytopenia, hepatitis C, unspecified dementia, mood disorder, among others who presents to the ED from [facility] due to bleeding from his AV fistula. 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 Jarvis who suggested cryoprecipitate, FFP, Plat and vit K, all given INR is normal ?concern for TTP/HUS, check LOU TS 13 is pending hematology/nephro consult pending Acute blood loss anemia secondary to bleeding AV fistula hemoglobin qA 6.4, hematocrit 19.4, given 2 unit PRBC, h/hnow 05/19 platelets is within baseline~ 40 vascular consult, nothing to do follow CBC Hypothermia this has also being chronic issues, had warming blanket and resolved, could be relatedto hypoglycemia Hypoglycemia, recurrent, type 1 diabetes that is brittle in nature-fs still flacutaing intermittent in 40-50 range,asymptmyomatic seems like dec po intake contributing hypoglycemia protocol check tsh improving to 5.6 ,free t4 mild low , A1C 7.1,and random cortisol normal switched toD10 , moniter fs closely Lactic acidosis lactic acid 3.0 secondary to demand ischemia Elevated LFTs improving secondary to demand ischemia, ?DIC, also patient with hepatitis-C, unclear if treated monitor LFTs ESRD on HD T// nephro consult HLD continue statin Hypothyroid check TSH continue levothyroxine Mood disorder continue home meds BPH continue tamsulosin Full code VTE prophylaxis: Pneumoboots due to thrombocytopenia and acute blood loss Patient with acute blood loss anemia requiring admission for at least 2 midnight stay for blood transfusion, monitoring and further evaluation. Consider dc if H/H stable patient sister miss [place] in detail. Quality Stroke Does the patient have a stroke diagnosis?: No VTE Prior VTE?: No VTE Risk Level:: Medical - moderate - high VTE Device Contraindication: N/A - Device Ordered VTE Drug Contraindication: Treatment Not Indicated
[2024-12-15 19:41] LABS: Glucose, Whole Blood 111 mg/dL (60-115)
[2024-12-15 20:49] LABS: Glucose, Whole Blood 97 mg/dL (60-115)
[2024-12-15 21:00] LABS: Glucose, Whole Blood 136 mg/dL (60-115)
[2024-12-15 21:23] LABS: VBG Base Excess 5.9 mmol/L; VBG HCO3 28 mmol/L (22-26); VBG pCO2 31 mmHg; VBG pH 7.56 (7.32-7.43); VBG pO2 63 mmHg
[2024-12-15 21:25] LABS: Venous Blood Gas Refer to POC result
[2024-12-15] MEDS: Albumin Human 25 % 100 ML 133.33 ML IV ×2 (21:36→22:25)
[2024-12-15 21:37] LABS: Lactic Acid 4.2 mmol/L (0.5-2.0)
[2024-12-15 21:41] LABS: Alanine Aminotransferase 304 U/L (0-40); Albumin Level 1.9 g/dL (3.5-5.0); Alkaline Phosphatase 258 U/L (39-117); Anion Gap 13 (12-20); Aspartate Amino Transferase 432 U/L (5-37); Bilirubin Total 1.7 mg/dL (0.0-1.0); Blood Urea Nitrogen 26 mg/dL (9-16); Calcium 6.9 mg/dL (8.4-10.2); Carbon Dioxide 25 mmol/L (22-29); Chloride 102 mmol/L (96-108); Estimated Glomerular Filt Rate 40; Glucose Random 138 mg/dL (60-115); Magnesium 1.9 mg/dL (1.6-2.6); Phosphorus 3.7 mg/dL (2.7-4.5); Potassium 3.7 mmol/L (3.3-5.1); Sodium 136 mmol/L (135-145); Total Protein 3.3 g/dL (6.5-8.0)
--- NOTE | 2024-12-15 21:47 | W.PM.CCCN ---
Documented by User: Ector Villar NP 12/16/24 00:31 History of Present Illness Data of Consult Service Date: 12/15/24 Requesting physician: Christopher Mcleod Primary Care Provider: JULIOCESAR SCHWARTZ Reason for consult: Post cardiac arrest The patient is a 64-year-old male with a past medical history of end-stage renal disease (T/Yoon/Sat), type 1 diabetes mellitus, congestive heart failure, COPD, seizure disorder, anemia of chronic disease, chronic thrombocytopenia, hepatitis-C, unspecified dementia, and other mood disorders who presented from [facility] due to bleeding from his fistula on 12/10/2024, he was admitted to Hospital Medicine for concerns of DIC and acute blood loss anemia secondary to bleeding AV fistula. 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 Jarvis, suggested cryoprecipitate, FFP, Plat and vit K, all given during hospital stay. ?Patient was supposed to be going back to senior living facility yesterday, but kept having episodes of hypoglycemia, also noted to have poor p.o. intake, discharge was postponed patient is started on dextrose fluids. Tonight, patient suddenly became bradycardic, shortly after becoming unresponsive and pulseless, CPR was initiated. ?ACLS was followed, code blue lasted about 8 ?minutes, received a total of 2 epinephrine, 1 amp of bicarb, and 1 amp of calcium chloride.? Significant amount of vomit noted in the airway and in bed during intubation Transferred to ICU s/p cardiac arrest Review of Systems Review of Systems: Yes unobtainable due to endotracheal tube PMFSH Past Medical History Medical History (Updated 12/15/24 @ 23:35 by Ector Villar NP) Consumption coagulopathy Hypernatremia Vitamin D deficiency Hyperkalemia Hyperparathyroidism Dysphagia Hyperlipemia Hypertension Major depressive disorder Urine retention Systolic CHF Dementia Benign prostate hyperplasia Nicotine dependence Constipation Osteoarthritis Anemia Peripheral vascular disease Atrial fibrillation Gastrointestinal hemorrhage End stage renal disease on dialysis Hepatitis C COPD (chronic obstructive pulmonary disease) Cellulitis Streptococcal sepsis, unspecified Bacteremia Septic shock Sepsis Diabetes mellitus type 1 Hypertensive cardiopathy ESRD (end stage renal disease) on dialysis Social History Social History Household Members: Other Household Members Other:: [facility] Housing: Retirement Unable to assess alcohol history related to: Unable to respond Alcohol intake: never Patient Tobacco Use Status: Former Tobacco user Tobacco use type: Cigarette Second Hand Smoke Exposure: No Advance Directives Date on File: 06/22/22 service: No Current occupational status: disabled Meds Allergies Allergy/AdvReac Type Severity Reaction Status Date / Time No Known Allergies Allergy Verified 12/10/24 17:12 Active Medications: Current Medications Acetaminophen (Acetaminophen 325 Mg Tablet) 650 mg PO Q6H PRN PRN Reason: Pain, Mild 1-3,fever,headache Last Admin: 12/15/24 07:58 Dose: 650 mg Calcium Carbonate (Calcium Carbonate 750 Mg Tab.Chew) 750 mg PO Q4H PRN PRN Reason: Heartburn Cyanocobalamin (Cyanocobalamin (Vitamin B-12) 1,000 Mcg Tablet) 1,000 mcg PO DAILY [facility] Last Admin: 12/15/24 07:59 Dose: 1,000 mcg Dextrose (Dextrose 50 % 25 Gm/50 Ml Syringe) 25 gm IVPUSH Q15M PRN; Protocol PRN Reason: per Hypoglycemia Standing Ord. Last Admin: 12/15/24 16:16 Dose: 25 gm Docusate Sodium (Docusate Sodium 100 Mg Capsule) 100 mg PO BID [facility] Last Admin: 12/15/24 21:41 Dose: Not Given Duloxetine HCl (Duloxetine Hcl 60 Mg Capsule.Dr) 60 mg PO DAILY [facility] Last Admin: 12/15/24 07:58 Dose: 60 mg Ergocalciferol (Ergocalciferol (Vitamin D2) 1,250 Mcg Capsule) 1,250 mcg PO WE@0900 [facility] Ergocalciferol (Ergocalciferol (Vitamin D2) 1,250 Mcg Capsule) 1,250 mcg PO Q30D@0900 [facility] Folic Acid (Folic Acid 1 Mg Tablet) 1 mg PO DAILY [facility] Last Admin: 12/15/24 07:59 Dose: 1 mg Glucose (Glucose Gel 15 Gm Gel..Gram.) 15 gm PO Q15M PRN; Protocol PRN Reason: per Hypoglycemia Standing Ord. Last Admin: 12/13/24 04:07 Dose: 15 gm Dextrose (D10) 1,000 mls @ 60 mls/hr IVCONT .[id number] [facility] Last Infusion: 12/15/24 21:43 Dose: Infused Propofol (Diprivan) 1,000 mg in 100 mls @ 0 mls/hr IVCONT .Q0M [facility]; Protocol Norepinephrine Bitartrate (Levophed) 8 mg in 250 mls @ 0 mls/hr IVCONT .Q0M [facility]; Protocol Levofloxacin (Levaquin) 500 mg in 100 mls @ 100 mls/hr IV Q24H [facility] Albumin Human (Kedbumin 25 %) 100 mls @ 133.333 mls/hr IV Q1H [facility] Stop: 12/15/24 23:14 Last Admin: 12/15/24 21:36 Dose: 133.33 mls/hr Vancomycin HCl 1,500 mg/ (Sodium Chloride) 500 mls @ 333.333 mls/hr IV ONCE ONE Stop: 12/15/24 23:29 Vancomycin HCl 500 mg/ Sodium (Chloride) 110 mls @ 110 mls/hr IV ONCE ONE Stop: 12/17/24 20:59 Insulin Human Lispro (Insulin Lispro 100 Unit/Ml 3 Ml Vial) 0 unit SUBCUT QIDACHS [facility]; Protocol Last Admin: 12/15/24 21:41 Dose: Not Given Levothyroxine Sodium (Levothyroxine Sodium 25 Mcg Tablet) 25 mcg PO DAILY@0600 [facility] Last Admin: 12/15/24 05:57 Dose: 25 mcg Magnesium Hydroxide (Milk Of Magnesia 30 Ml Oral.Susp) 30 ml PO DAILY PRN PRN Reason: Constipation Melatonin (Melatonin 3 Mg Tablet) 6 mg PO BEDTIME PRN PRN Reason: Insomnia Last Admin: 12/11/24 21:02 Dose: 6 mg Mirtazapine (Mirtazapine 15 Mg Tablet) 15 mg PO BEDTIME [facility] Last Admin: 12/15/24 21:41 Dose: Not Given Multivitamins/Vitamin C (Multivitamin Tablet) 1 tab PO DAILY [facility] Last Admin: 12/15/24 07:58 Dose: 1 tab Naloxone HCl (Naloxone Hcl 0.4 Mg/Ml Vial) 0.4 mg SUBCUT Q2M PRN PRN Reason: Anaphylaxis Naloxone HCl (Naloxone Hcl Nasal 4 Mg [place]) 4 mg NOSTRILALT Q2M PRN PRN Reason: overdose Ondansetron HCl (Ondansetron Hcl 4 Mg/2 Ml Vial) 4 mg IVPUSH Q8H PRN PRN Reason: Nausea and Vomiting Oxycodone HCl (Oxycodone Hcl Immed Release 5 Mg Tablet) 5 mg PO Q6H PRN PRN Reason: Pain, Moderate(Pain Scale 4-6) Last Admin: 12/15/24 14:49 Dose: 5 mg Pharmacy Consult (Consult Rx Vancomycin Dosing) 1 each MISCELLANE DAILY PRN PRN Reason: Consult order Sodium Chloride (0.9 % Sodium Chloride Flush 3 Ml Syringe) 3 ml IVFLUSH QSHIFT [facility] Last Admin: 12/15/24 14:56 Dose: 3 ml Tamsulosin HCl (Tamsulosin Hcl 0.4 Mg Capsule) 0.4 mg PO BEDTIME [facility] Last Admin: 12/15/24 21:41 Dose: Not Given Thiamine HCl (Thiamine Hcl 100 Mg Tablet) 100 mg PO DAILY [facility] Last Admin: 12/15/24 07:58 Dose: 100 mg Home Medications ?Medication ?Instructions ?Recorded ?Confirmed ?Last Taken ?Type duloxetine 60 mg capsule,delayed 60 mg PO DAILY 06/17/22 12/10/24 11/21/24 History release insulin lispro 100 unit/mL See Protocol subcut TIDAC 06/17/22 12/10/24 11/21/24 History subcutaneous solution (Humalog U-100 Insulin) mirtazapine 15 mg tablet 15 mg PO BEDTIME 06/17/22 12/10/24 11/21/24 History tamsulosin 0.4 mg capsule 1 cap PO BEDTIME 06/17/22 12/10/24 11/21/24 History melatonin 5 mg tablet 5 mg PO BEDTIME Sleep 11/20/22 12/10/24 11/21/24 History oxycodone 5 mg tablet 5 mg PO Q6H PRN Pain (Scale Score 11/20/22 12/10/24 11/20/24 History 4-6) cholecalciferol (vitamin D3) 1,250 1,250 mcg PO WE 11/22/24 12/10/24 11/01/24 History mcg (50,000 unit) capsule cyanocobalamin (vitamin B-12) 1,000 mcg PO DAILY 11/22/24 12/10/24 11/21/24 History 1,000 mcg tablet epinephrine 0.3 mg/0.3 mL 0.3 mg IM Q5M PRN Anaphylaxis 11/22/24 12/10/24 Unknown History injection, auto-injector (EpiPen) ergocalciferol (vitamin D2) 1,250 1,250 mcg PO WE@0900 11/22/24 12/10/24 11/18/24 History mcg (50,000 unit) capsule folic acid 1 mg tablet 1 mg PO DAILY 11/22/24 12/10/24 11/21/24 History glucagon 1 mg/0.2 mL subcutaneous 1 mg subcut Q15M PRN low BS 11/22/24 12/10/24 Unknown History solution (Gvoke) naloxone 0.4 mg/mL injection 0.4 mg subcut Q2M PRN Anaphylaxis 11/22/24 12/10/24 Unknown History solution naloxone 4 mg/actuation nasal spray 4 mg intranasal Q2M PRN overdose 11/22/24 12/10/24 Unknown History thiamine HCl (vitamin B1) 100 mg 100 mg PO DAILY 11/22/24 12/10/24 11/21/24 History tablet carvedilol 3.125 mg tablet 3.125 mg PO BID 12/10/24 12/10/24 Unknown History ergocalciferol (vitamin D2) 1,250 1,250 mcg PO QMONTH 12/10/24 12/10/24 Unknown History mcg (50,000 unit) capsule (Vitamin D2) insulin glargine 100 unit/mL (3 1 unit subcut BEDTIME 12/10/24 12/10/24 Unknown History mL) subcutaneous pen (Lantus Solostar U-100 Insulin) vit B complex and vit C 1 tab PO DAILY 12/10/24 12/10/24 Unknown History no.24-ferrous fum 66 mg-folic 1,000 mcg tablet (Nephron FA) Physical Exam Vital Signs: Vital Signs: Last Vital Signs Temp 98.4 F 12/15/24 19:36 Pulse 88 12/15/24 21:14 Resp 20 12/15/24 21:14 BP 105/62 12/15/24 21:14 Pulse Ox 96 12/15/24 21:14 O2 Del Method Mechanical Ventil ation 12/15/24 21:14 FiO2 100 12/15/24 21:27 BMI result Body Mass Index 19.0 SEPSIS FOCUS EXAM PERFORMED AT 2320 ?General:? Patient intubated, frail looking ?HEENT:? Head is normocephalic, atraumatic, pupils equal round reactive to light accommodation bilaterally.? Buccal mucosa is dry, Neck is supple ?Cardiac:? Sinus, Clear S1-S2, no murmurs rubs or gallops. ?Pulmonary:? Rhonchi throughout. On AC settings 20/420/5/60%. ?Abdomen:? Abdomen soft,non-distended. Normal bowel sounds. No pulsatile mass. No hepatosplenomegaly. ?Musculoskeletal:? Moving all 4 extremities randomly. Gait not assessed at this point. ?Neurologic:? + gag reflex, ? No focal deficits noted.Motor strength as above.?? ?Skin:? Skin extremely dry, multiple wounds/ulcers throughout body. Vascular:? 2+ pulses upper and lower extremities distally.? Results Labs 12/16/24 03:12 12/16/24 04:25 Labs: BMP 12/15/24 21:10 Sodium 136 Potassium 3.7 D Chloride 102 Carbon Dioxide 25 BUN 26 H Creatinine 1.75 H Calcium 6.9 L D Liver Function 12/15/24 Range/Units 21:10 Total Bilirubin 1.7 H (0.0-1.0) mg/dL AST 432 H (5-37) U/L ALT 304 H (0-40) U/L Alkaline Phosphatase 258 H (39-117) U/L Albumin 1.9 L (3.5-5.0) g/dL Microbiology Microbiology Results: Microbiology 12/10/24 18:16 Blood - Venous Blood Culture - Final No growth after 5 days. 12/10/24 17:47 Blood - Venous Blood Culture - Final No growth after 5 days. Assessment and Plan (1) Cardiac arrest: Status: Acute (2) Septic shock: Status: Acute (3) Consumption coagulopathy: Status: Acute (4) Aspiration into airway: Status: Acute (5) Aspiration pneumonia: Qualifiers: Aspiration pneumonia type: unspecified Laterality: unspecified laterality Lung location: unspecified part of lung Qualified Code(s): J69.0 - Pneumonitis due to inhalation of food and vomit Status: Acute (6) Acute respiratory failure: Status: Acute (7) Transaminitis: Status: Acute (8) Hypothermia: Status: Acute (9) Hypoglycemia: Status: Acute (10) Acute blood loss anemia: Status: Acute (11) Thrombocytopenia: Status: Acute (12) ESRD (end stage renal disease) on dialysis: Status: Acute (13) Diabetes mellitus type 1: Status: Acute (14) Atrial fibrillation: Status: Acute Plan 64-year-old male with a past medical history of end-stage renal disease (T/Yoon/Sat), type 1 diabetes mellitus, congestive heart failure, COPD, seizure disorder, anemia of chronic disease, chronic thrombocytopenia, hepatitis-C, unspecified dementia, and other mood disorders admitted to ICU status post cardiac arrest likely from aspiration event and septic shock Neuro: No acute issues? Cardiac:?? ?Post cardiac arrest- ?patient became bradycardic on telemetry, shortly after became pulseless.? Now status post cardiac arrest, ROSC was achieved after about 8 minutes of CPR, with a total of 2 epinephrine, 1 amp of bicarb, and 1 amp of calcium chloride.? Significant amount of vomit was noted inpatients airway and in bed during intubation.? Aspiration is likely the cause of sudden cardiac arrest. ?We will obtain chest CTA and abdominal CT Septic shock- Lactic is 4, hypothermic to 93. ??Aspiration event is likely the cause of septic shock. ?But will rule out other sources with chest CTA abdominal CTA. 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 Unable to do 30 mL/kg due to underlying end-stage renal disease and congestive heart failure.? We will give albumin bolus. Underlying history of congestive heart failure:? Patient has high risk of fluid overload, BNP already elevated to 11,489. Received dialysis today.? Continue to monitor for plus pulmonary edema. Pulmonary:?? Acute respiratory failure-?from aspiration event.? From [facility] records, patient has frequent aspiration pneumonias; he has refused G-tube in the past.? This is likely the cause of septic shock.? Continue empiric antibiotics. Wean off vent as tolerated.? Renal:? Underlying history of end-stage renal disease -? ?received hemodialysis today. ?Likely will need hemodialysis tomorrow.? We will reach out to Nephrology in the morning for additional hemodialysis session. Closely monitor? urine output and renal indices? Endo:? Underlying history of diabetes mellitus:? Patient is a brittle type 1 diabetic, discharge was postponed due to hypoglycemic episodes.? He was likely hypoglycemic due to sepsis.? We will continue to monitor blood sugars frequently GI:?? ?Transaminitis-? likely from cardiac arrest/ septic shock.? Heme/Onc:? Disseminated intravascular coagulation:? 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 He received cryoprecipitate, FFP, platelets and vitamin K, with coags going back to normal.? Today, patient seems to be in DIC again, PTT 27.2, INR 2.4, fibrinogen 198, D-dimer 2158, hemoglobin 7, platelets 9, ?no clear source of bleeding.? We will obtain abdominal CT and chest CT to rule out other sources of bleeding. Occult blood. ID septic shock:? Aspiration pneumonia, likely the cause.? Unable to use Zosyn we will broaden antibiotic coverage with meropenem.? We will also use vancomycin.? We will obtain sputum culture, and blood cultures. Psych:? No acute issues. Miscellaneous:? No acute issues. Prophylaxis: ?Concerning for DIC will use pneumonic boots GI: IV push protonix? Critical care time: x120 min of critical care time? CODE:? FULL CODE?confirmed with MOLST and family I personally called Healthcare proxys Aaliyah Drake and Pam Herr, spoke with both over the phone, they report they live in [place] and unable to come to the hospital at this time.? I informed of patient's clinical status.? They will like to continue full code at this time Case discussed with attending Dr Wall Documented by User: Jeff Wall MD 12/16/24 13:04 [facility] Past Medical History Medical History (Updated 12/15/24 @ 23:35 by Ector Villar NP) Consumption coagulopathy Hypernatremia Vitamin D deficiency Hyperkalemia Hyperparathyroidism Dysphagia Hyperlipemia Hypertension Major depressive disorder Urine retention Systolic CHF Dementia Benign prostate hyperplasia Nicotine dependence Constipation Osteoarthritis Anemia Peripheral vascular disease Atrial fibrillation Gastrointestinal hemorrhage End stage renal disease on dialysis Hepatitis C COPD (chronic obstructive pulmonary disease) Cellulitis Streptococcal sepsis, unspecified Bacteremia Septic shock Sepsis Diabetes mellitus type 1 Hypertensive cardiopathy ESRD (end stage renal disease) on dialysis Social History Social History Household Members: Other Household Members Other:: [facility] Housing: Retirement Unable to assess alcohol history related to: Unable to respond Alcohol intake: never Patient Tobacco Use Status: Former Tobacco user Tobacco use type: Cigarette Second Hand Smoke Exposure: No Advance Directives Date on File: 06/22/22 service: No Current occupational status: disabled Meds Allergies Allergy/AdvReac Type Severity Reaction Status Date / Time No Known Allergies Allergy Verified 12/10/24 17:12 Home Medications ?Medication ?Instructions ?Recorded ?Confirmed ?Last Taken ?Type duloxetine 60 mg capsule,delayed 60 mg PO DAILY 06/17/22 12/10/24 11/21/24 History release insulin lispro 100 unit/mL See Protocol subcut TIDAC 06/17/22 12/10/24 11/21/24 History subcutaneous solution (Humalog U-100 Insulin) mirtazapine 15 mg tablet 15 mg PO BEDTIME 06/17/22 12/10/24 11/21/24 History tamsulosin 0.4 mg capsule 1 cap PO BEDTIME 06/17/22 12/10/24 11/21/24 History melatonin 5 mg tablet 5 mg PO BEDTIME Sleep 11/20/22 12/10/24 11/21/24 History oxycodone 5 mg tablet 5 mg PO Q6H PRN Pain (Scale Score 11/20/22 12/10/24 11/20/24 History 4-6) cholecalciferol (vitamin D3) 1,250 1,250 mcg PO WE 11/22/24 12/10/24 11/01/24 History mcg (50,000 unit) capsule cyanocobalamin (vitamin B-12) 1,000 mcg PO DAILY 11/22/24 12/10/24 11/21/24 History 1,000 mcg tablet epinephrine 0.3 mg/0.3 mL 0.3 mg IM Q5M PRN Anaphylaxis 11/22/24 12/10/24 Unknown History injection, auto-injector (EpiPen) ergocalciferol (vitamin D2) 1,250 1,250 mcg PO WE@0900 05/11/1312/10/24 11/18/24 History mcg (50,000 unit) capsule folic acid 1 mg tablet 1 mg PO DAILY 11/22/24 12/10/24 11/21/24 History glucagon 1 mg/0.2 mL subcutaneous 1 mg subcut Q15M PRN low BS 11/22/24 12/10/24 Unknown History solution (Gvoke) naloxone 0.4 mg/mL injection 0.4 mg subcut Q2M PRN Anaphylaxis 11/22/24 12/10/24 Unknown History solution naloxone 4 mg/actuation nasal spray 4 mg intranasal Q2M PRN overdose 11/22/24 12/10/24 Unknown History thiamine HCl (vitamin B1) 100 mg 100 mg PO DAILY 11/22/24 12/10/24 11/21/24 History tablet carvedilol 3.125 mg tablet 3.125 mg PO BID 12/10/24 12/10/24 Unknown History ergocalciferol (vitamin D2) 1,250 1,250 mcg PO QMONTH 12/10/24 12/10/24 Unknown History mcg (50,000 unit) capsule (Vitamin D2) insulin glargine 100 unit/mL (3 1 unit subcut BEDTIME 12/10/24 12/10/24 Unknown History mL) subcutaneous pen (Lantus Solostar U-100 Insulin) vit B complex and vit C 1 tab PO DAILY 12/10/24 12/10/24 Unknown History no.24-ferrous fum 66 mg-folic 1,000 mcg tablet (Nephron FA) Results Labs 12/16/24 03:12 12/16/24 04:25 Assessment and Plan (1) Cardiac arrest: Status: Acute (2) Septic shock: Status: Acute (3) Consumption coagulopathy: Status: Acute (4) Aspiration into airway: Status: Acute (5) Aspiration pneumonia: Qualifiers: Aspiration pneumonia type: unspecified Laterality: unspecified laterality Lung location: unspecified part of lung Qualified Code(s): J69.0 - Pneumonitis due to inhalation of food and vomit Status: Acute (6) Acute respiratory failure: Status: Acute (7) Transaminitis: Status: Acute (8) Hypothermia: Status: Acute (9) Hypoglycemia: Status: Acute (10) Acute blood loss anemia: Status: Acute (11) Thrombocytopenia: Status: Acute (12) ESRD (end stage renal disease) on dialysis: Status: Acute (13) Diabetes mellitus type 1: Status: Acute (14) Atrial fibrillation: Status: Acute Plan 64-year-old male with a past medical history of end-stage renal disease (T/Yoon/Sat), type 1 diabetes mellitus, congestive heart failure, COPD, seizure disorder, anemia of chronic disease, chronic thrombocytopenia, hepatitis-C, unspecified dementia, and other mood disorders admitted to ICU status post cardiac arrest likely from aspiration event and septic shock Neuro: No acute issues? Cardiac:?? ?Post cardiac arrest- ?patient became bradycardic on telemetry, shortly after became pulseless.? Now status post cardiac arrest, ROSC was achieved after about 8 minutes of CPR, with a total of 2 epinephrine, 1 amp of bicarb, and 1 amp of calcium chloride.? Significant amount of vomit was noted inpatients airway and in bed during intubation.? Aspiration is likely the cause of sudden cardiac arrest. ?We will obtain chest CTA and abdominal CT Septic shock- Lactic is 4, hypothermic to 93. ??Aspiration event is likely the cause of septic shock. ?But will rule out other sources with chest CTA abdominal CTA. 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 Unable to do 30 mL/kg due to underlying end-stage renal disease and congestive heart failure.? We will give albumin bolus. Underlying history of congestive heart failure:? Patient has high risk of fluid overload, BNP already elevated to 11,489. Received dialysis today.? Continue to monitor for plus pulmonary edema. Pulmonary:?? Acute respiratory failure-?from aspiration event.? From [facility] records, patient has frequent aspiration pneumonias; he has refused G-tube in the past.? This is likely the cause of septic shock.? Continue empiric antibiotics. Wean off vent as tolerated.? Renal:? Underlying history of end-stage renal disease -? ?received hemodialysis today. ?Likely will need hemodialysis tomorrow.? We will reach out to Nephrology in the morning for additional hemodialysis session. Closely monitor? urine output and renal indices? Endo:? Underlying history of diabetes mellitus:? Patient is a brittle type 1 diabetic, discharge was postponed due to hypoglycemic episodes.? He was likely hypoglycemic due to sepsis.? We will continue to monitor blood sugars frequently GI:?? ?Transaminitis-? likely from cardiac arrest/ septic shock.? Heme/Onc:? Disseminated intravascular coagulation:? 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 He received cryoprecipitate, FFP, platelets and vitamin K, with coags going back to normal.? Today, patient seems to be in DIC again, PTT 27.2, INR 2.4, fibrinogen 198, D-dimer 2158, hemoglobin 7, platelets 9, ?no clear source of bleeding.? We will obtain abdominal CT and chest CT to rule out other sources of bleeding. Occult blood. ID septic shock:? Aspiration pneumonia, likely the cause.? Unable to use Zosyn we will broaden antibiotic coverage with meropenem.? We will also use vancomycin.? We will obtain sputum culture, and blood cultures. Psych:? No acute issues. Miscellaneous:? No acute issues. Prophylaxis: ?Concerning for DIC will use pneumonic boots GI: IV push protonix? Critical care time: x120 min of critical care time?mostly spent on post resuscitation care, post resuscitation hemodynamic stability, ventilator management, vasopressor management, titrating multiple vasopressor drips, sedation management, transfusing blood products CODE:? FULL CODE?confirmed with MOLST and family I personally called Healthcare proxys Aaliyah Drake and Pam Herr, spoke with both over the phone, they report they live in [place] and unable to come to the hospital at this time.? I informed of patient's clinical status.? They will like to continue full code at this time Case discussed with attending Dr Wall
[2024-12-15 21:49] LABS: Lactate Dehydrogenase 665 U/L (118-273)
[2024-12-15 21:52] LABS: Fibrinogen 198 MG/DL (259-690)
[2024-12-15 21:52] LABS: Troponin-I High Sensitivity 21.6 ng/L (<3.5-35.0)
[2024-12-15 21:54] LABS: D Dimer High Sensitivity 2158 NG/ML
[2024-12-15] MEDS: propofoL 1,000 MG/100 ML VIAL 11.65 MG IVCONT (21:59)
--- NOTE | 2024-12-15 22:07 | PM.SEPBOLA4 ---
Sepsis Bolus Exclusion Sepsis Bolus Exclusion CHF/Renal Failure Date of Occurrence: 12/15/24 Time of Occurrence:: 21:30 This patient met severe sepsis criteria due to the following condition(s):: Hypotension and Lactate>=4mmol/L In my clinical judgement the administration of 30 ml/kg of crystalloid would be detrimental to this patient due to the patient's following conditions:: NYHA class III or IV Heart Failure(symptoms with low exertion or rest), Stage III or IV Chronic Kidney Disease (GFR<30) and Concern for fluid overload Replace the 30 mls/kg with (Zero amount not acceptable and all fluids for severe sepsis must be given at GREATER than 125 mls/hr) *Note: One of the lang must be documented Colloids amount given in mls:: 200 At a rate of (must be > 125 cchr):: 133
[2024-12-15 22:08] LABS: Hematocrit 21.7 % (42.0-52.0); Mean Corpuscular HGB Conc 32.3 g/dl (31.0-36.0); Mean Corpuscular Hemoglobin 29.4 pg (27.0-33.0); Mean Corpuscular Volume 91.2 fL (80.0-98.0); Red Blood Count 2.38 X10*6/uL (4.60-5.80)
[2024-12-15 22:10] LABS: Red Cell Distribution Width 17.7 % (11.0-16.0)
[2024-12-15 22:12] LABS: B Type Natriuretic Peptide 11489 pg/mL (<100)
[2024-12-15 22:16] LABS: White Blood Count 0.5 X10*3/uL (4.8-10.8)
[2024-12-15 22:17] LABS: PLT ABN DIST 1
[2024-12-15 22:21] LABS: Platelet Count 9 X10*3/uL (160-400)
--- NOTE | 2024-12-15 22:29 | PC.NURSE ---
Addendum entered by Natalie Vaughn RN 12/15/24 22:50: At 20:20 Tele manager monitoring stating pt. HR decreased to upper 40's. This advertising writer in to check on pt. and pt. unresponsive to sternal rub and Code called. Original Note: Handover received and acquired care of pt. at 19:00 12/15/24. Pt. alert and awake to voice. Pt. voices no complaints at 19:30. IVF infusing as ordered. POC check at 19:30 was 111. 20:00 Biophysical assessment performed. SR on tele. _bruit/thrill from L arm AV fistula. At 20:10 pt. heard yelling for help. Pt. stating he wants to lay on his side; pt. repositioned on right side. Pt. denies chest pain/sob; pt. on RA and diminished throughout. Even/regular respirations.
[2024-12-15 22:31] LABS: INTERNATIONAL NORM RATIO 2.4 (0.9-1.1); Prothrombin Time 27.2 SEC (10.9-12.4)
[2024-12-15] MEDS: vancomycin HCL 1,500 MG in 0.9 % Sodium Chloride 500 ML 333.33 MG IV (22:42)
[2024-12-15 22:48] LABS: Atypical Lymph Absolute Manual 0.1 x10*3/uL; Atypical Lymphs Percent Manual 20 % (0-6); Band Neutrophils Percent 0 % (3-5); Lymphocytes Absolute Manual 0.2 X10*3/uL (1.2-4.9); Lymphocytes Percent Manual 40 % (20-40); Microcytosis 3+ (>30) /OIF; Neutrophils Absolute Manual 0.2 X10*3/uL (2.0-8.3); Neutrophils Percent Manual 36 % (45-73); Platelet Estimate DECREASED (NORMAL); Promyelocytes Percent 4 %; RBC Morphology NOTED
[2024-12-15 22:49] LABS: Burr Cells 2+ (3-5) /OIF; Platelet Morphology Comment NORMAL; Schistocytes 2+ (3-5) /OIF
[2024-12-15] MEDS: Norepinephrine Bitartrate/D5W 8 MG/250 ML PLAST..BAG 6.07 MG IVCONT (22:53)
[2024-12-15 23:17] LABS: Reflex Lactate? Lactic Acid Added
[2024-12-15] MEDS: Chlorhexidine Gluc Oral Rinse 15 ML MOUTHWASH BUCCAL (23:17)
[2024-12-15] MEDS: Meropenem 1 GM VIAL IVPUSH (23:17)
[2024-12-15 23:36] LABS: Partial Thromboplastin Time 74.8 SEC (26.0-36.8)
[2024-12-16] VITALS (73 sets, daily range): BP systolic 0–173; BP diastolic 0–98; PULSE 0–104; RESP 15–23; TEMP 34.3–36.6; O2SAT 91–100; BMI 19.0
[2024-12-16] MEDS: iohexoL 350 MG/ML 100 ML INFUS..BTL IV (00:14)
[2024-12-16 00:30] LABS: Glucose, Whole Blood 107 mg/dL (60-115)
[2024-12-16 00:57] LABS: ~Lactic Acid-LAB USE ONLY 6.3 mmol/L (0.5-2.0)
[2024-12-16] MEDS: Sodium Bicarbonate 8.4% 50 MEQ/50 ML SYRINGE IVPUSH (01:09)
[2024-12-16] MEDS: Calcium Chloride 1 GM/10 ML SYRINGE IVPUSH (01:14)
[2024-12-16 01:19] LABS: Glucose, Whole Blood 90 mg/dL (60-115)
[2024-12-16] MEDS: Vasopressin 20 UNIT/100 ML INFUS..BTL 12 UNIT IVCONT ×2 (01:22→10:21)
[2024-12-16 02:36] LABS: Reflex Lactate? 2 Y
[2024-12-16 03:12] LABS: Glucose, Whole Blood 74 mg/dL (60-115)
[2024-12-16] MEDS: Dextrose 50 % 25 GM/50 ML SYRINGE IVPUSH ×3 (03:26→10:58)
[2024-12-16 03:53] LABS: Mean Corpuscular HGB Conc 33.1 g/dl (31.0-36.0); Mean Corpuscular Hemoglobin 29.2 pg (27.0-33.0); Mean Platelet Volume 12.1 fL (9.4-12.4); Red Blood Count 1.92 X10*6/uL (4.60-5.80); Red Cell Distribution Width 17.5 % (11.0-16.0); WBC ABN SCTR FOR CBC 1
[2024-12-16 03:56] LABS: White Blood Count 0.2 X10*3/uL (4.8-10.8)
[2024-12-16 03:57] LABS: Hematocrit 16.9 % (42.0-52.0); Hemoglobin 5.6 g/dl (14.0-18.0)
[2024-12-16 03:58] LABS: Platelet Count 9 X10*3/uL (160-400)
[2024-12-16 04:56] LABS: VBG Base Excess 5.5 mmol/L; VBG HCO3 27 mmol/L (22-26); VBG pCO2 26 mmHg; VBG pH 7.61 (7.32-7.43); VBG pO2 64 mmHg
[2024-12-16 05:03] LABS: B Type Natriuretic Peptide 13538 pg/mL (<100); ~Lactic Acid-LAB USE ONLY 7.9 mmol/L (0.5-2.0)
[2024-12-16 05:13] LABS: Alanine Aminotransferase 262 U/L (0-40); Albumin Level 2.2 g/dL (3.5-5.0); Alkaline Phosphatase 217 U/L (39-117); Anion Gap 19 (12-20); Aspartate Amino Transferase 396 U/L (5-37); Bilirubin Total 2.4 mg/dL (0.0-1.0); Blood Urea Nitrogen 27 mg/dL (9-16); Calcium 7.6 mg/dL (8.4-10.2); Carbon Dioxide 22 mmol/L (22-29); Chloride 100 mmol/L (96-108); Fibrinogen 180 MG/DL (259-690); Glucose Random 112 mg/dL (60-115); Magnesium 1.8 mg/dL (1.6-2.6); Phosphorus 2.8 mg/dL (2.7-4.5); Potassium 3.3 mmol/L (3.3-5.1); Prothrombin Time 34.4 SEC (10.9-12.4); Sodium 138 mmol/L (135-145); Total Protein 3.4 g/dL (6.5-8.0)
[2024-12-16 05:14] LABS: Partial Thromboplastin Time 80.8 SEC (26.0-36.8)
[2024-12-16 05:30] LABS: Creatinine Clr Calc Pharmacy 35.6; Estimated Glomerular Filt Rate 39
[2024-12-16 05:34] LABS: Glucose, Whole Blood 48 mg/dL (60-115)
[2024-12-16 05:41] LABS: Band Neutrophils Percent 21 % (3-5); Lymphocytes Absolute Manual 0.1 X10*3/uL (1.2-4.9); Monocytes Percent Manual 3 % (2-11); Neutrophils Absolute Manual 0.1 X10*3/uL (2.0-8.3); Neutrophils Percent Manual 6 % (45-73)
[2024-12-16 05:42] LABS: Acanthocytes 1+ (0-2) /OIF; Lymphocytes Percent Manual 63 % (20-40); Metamyelocytes Percent 7 %; Platelet Estimate DECREASED (NORMAL); Platelet Morphology Comment NORMAL; RBC Morphology NOTED
[2024-12-16 05:43] LABS: Burr Cells 1+ (0-2) /OIF; Schistocytes 1+ (0-2) /OIF
[2024-12-16] MEDS: Dextrose 10 % 1,000 ML 60 ML IVCONT (05:47)
[2024-12-16] MEDS: Pantoprazole Sodium 40 MG/10 ML VIAL IVPUSH (05:50)
[2024-12-16] MEDS: Potassium Chloride Packet 20 MEQ PACKET 40 MEQ OG-TUBE (05:50)
[2024-12-16 06:27] LABS: Thyroid Stimulating Hormone 7.37 uIU/mL (0.32-4.0)
[2024-12-16 06:30] LABS: Glucose, Whole Blood 86 mg/dL (60-115)
[2024-12-16 06:33] LABS: Venous Blood Gas Refer to POC result
--- NOTE | 2024-12-16 07:20 | PC.NURSE ---
Patient was found unresponsive by his primary nurse on the floor and subsequently lost his pulse. Patient obtained ROSC after 2 rounds of CPR and was intubated prior to being transferred to ICU. Patient was intubated and sedated for comfort and vent synchrony, though no purposeful movement was noted. No cough/gag/corneal reflex was noted, but he intermittently had trace movements to head and arms with vigorous stimuli. Patient had extremely labile BP with poor perfusion since arrival, requiring close hemodynamic monitoring and frequent titration of vasopressors. Patient required minimum 0.02 Levo to maximum 0.9 Levo with or without vasopressin to maintain adequate perfusion with goal MAP >65. Patient was also found to be hypothermic in 93.6 upon arrival - bear hugger was placed which was turned off by the end of the shift when he reached normothermia at 97.5. Blood glucose level was also actively monitored with q2h check - he received 1 amp of D50 before receiving continuos infusion of D10 due to hypoglycemia. CT imaging, EKG, and multiple blood works were performed. Central line and a-line insertions were attempted with no success. 1u of PRBC was started for hgb of 5.6. Nursing care was not performed regularly as patient was too unstable to tolerate frequent hygiene care and repositioning.
[2024-12-16] MEDS: 0.9 % Sodium Chloride Flush 3 ML SYRINGE IVFLUSH ×2 (07:29→14:59)
--- NOTE | 2024-12-16 09:01 | P.PNCC_ITS ---
Subjective Subjective Date of Service: 12/16/24 Interval History: Very sick, critically ill on 2 vasopressor support, intubated on ventilator support Severe pancytopenia WBC count down 0.2, hemoglobin 5.6, platelet count 9000 Critical Care Time (minutes): 35 Physical Exam 2 Vital Signs: Vital Signs: Last Vital Signs Temp 97.9 F 12/16/24 08:00 Pulse 78 12/16/24 08:00 Resp 18 12/16/24 08:00 BP 119/98 H 12/16/24 08:00 Pulse Ox 100 12/16/24 05:00 O2 Del Method Mechanical Ventil ation 12/16/24 08:00 FiO2 60 12/16/24 08:00 BMI result Body Mass Index 19.0 General: Emaciated, elderly male in severe distress Nutritional Appearance: Poorly nourished and underweight Eyes: appearance normal, both eyes and all related structures; Alignment and Position: alignment normal and position normal Neck: No lymphadenopathy, no thyromegaly Resp: bilateral air entry equal, bilateral crackles heard Cardio: Regular rate, regular rhythm; Heart sounds: S1 normal heart sound present and S2 normal heart sound present GI: soft, nontender, no guarding, no hepatosplenomegaly : bladder normal to inspection, bladder normal to palpation, no renal angle tenderness Skin: no rashes or lesions noted and elasticity normal Neuro: Unresponsive, occasional spontaneous movements present, poor brain stem reflex Objective Data Labs 12/16/24 03:12 12/16/24 04:25 Labs: Laboratory Results - last 24 hr 12/10/24 12/11/24 12/15/24 17:47 06:27 11:49 WBC RBC Hgb Hct MCV MCH MCHC RDW Plt Count MPV Immature Gran % (Auto) Neut % (Auto) Lymph % (Auto) [place] % (Auto) Eos % (Auto) Baso % (Auto) Lymph # (Auto) [place] # (Auto) Eos # (Auto) Baso # (Auto) Abs Immat Gran (auto) Absolute Neuts (auto) Absolute Nucleated RBC Nucleated RBC % (auto) Neutrophils % (Manual) Band Neutrophils % Lymphocytes % (Manual) Atypical Lymphs % (Man) Monocytes % (Manual) Metamyelocytes % Promyelocytes % Abs Neuts (Manual) Lymphocytes # (Manual) Atyp Lymphs # (Manual) Platelet Estimate Plt Morphology Comment RBC Morphology Microcytosis [place] Cells Acanthocytes (Spur) Schistocytes Smear Path Review SEE NOTE PT INR APTT Fibrinogen D-Dimer High Sensitivty [id number] Activity Intrp 0.50 L VBG pH VBG pCO2 VBG pO2 VBG HCO3 VBG O2 Saturation VBG Base Excess Sodium Potassium Chloride Carbon Dioxide Anion Gap BUN Creatinine Estim Creat Clear Calc Estimated GFR POC Glucose 53 L* Random Glucose Lactic Acid Lactic Acid F/U @ 2Hr Lactic Acid F/U @ 4Hr Calcium Phosphorus Magnesium Total Bilirubin AST ALT Alkaline Phosphatase Lactate Dehydrogenase Total Creatine Kinase Troponin I High Sens B-Natriuretic Peptide Total Protein Albumin TSH Blood Type Antibody Screen Crossmatch 12/15/24 12/15/24 12/15/24 16:09 16:52 18:06 WBC RBC Hgb Hct MCV MCH MCHC RDW Plt Count MPV Immature Gran % (Auto) Neut % (Auto) Lymph % (Auto) [place] % (Auto) Eos % (Auto) Baso % (Auto) Lymph # (Auto) [place] # (Auto) Eos # (Auto) Baso # (Auto) Abs Immat Gran (auto) Absolute Neuts (auto) Absolute Nucleated RBC Nucleated RBC % (auto) Neutrophils % (Manual) Band Neutrophils % Lymphocytes % (Manual) Atypical Lymphs % (Man) Monocytes % (Manual) Metamyelocytes % Promyelocytes % Abs Neuts (Manual) Lymphocytes # (Manual) Atyp Lymphs # (Manual) Platelet Estimate Plt Morphology Comment RBC Morphology Microcytosis [place] Cells Acanthocytes (Spur) Schistocytes Smear Path Review PT INR APTT Fibrinogen D-Dimer High Sensitivty [id number] Activity Intrp VBG pH VBG pCO2 VBG pO2 VBG HCO3 VBG O2 Saturation VBG Base Excess Sodium Potassium Chloride Carbon Dioxide Anion Gap BUN Creatinine Estim Creat Clear Calc Estimated GFR POC Glucose 43 L* 108 110 Random Glucose Lactic Acid Lactic Acid F/U @ 2Hr Lactic Acid F/U @ 4Hr Calcium Phosphorus Magnesium Total Bilirubin AST ALT Alkaline Phosphatase Lactate Dehydrogenase Total Creatine Kinase Troponin I High Sens B-Natriuretic Peptide Total Protein Albumin TSH Blood Type Antibody Screen Crossmatch 12/15/24 12/15/24 12/15/24 19:38 20:32 20:54 WBC RBC Hgb Hct MCV MCH MCHC RDW Plt Count MPV Immature Gran % (Auto) Neut % (Auto) Lymph % (Auto) [place] % (Auto) Eos % (Auto) Baso % (Auto) Lymph # (Auto) [place] # (Auto) Eos # (Auto) Baso # (Auto) Abs Immat Gran (auto) Absolute Neuts (auto) Absolute Nucleated RBC Nucleated RBC % (auto) Neutrophils % (Manual) Band Neutrophils % Lymphocytes % (Manual) Atypical Lymphs % (Man) Monocytes % (Manual) Metamyelocytes % Promyelocytes % Abs Neuts (Manual) Lymphocytes # (Manual) Atyp Lymphs # (Manual) Platelet Estimate Plt Morphology Comment RBC Morphology Microcytosis [place] Cells Acanthocytes (Spur) Schistocytes Smear Path Review PT INR APTT Fibrinogen D-Dimer High Sensitivty [id number] Activity Intrp VBG pH VBG pCO2 VBG pO2 VBG HCO3 VBG O2 Saturation VBG Base Excess Sodium Potassium Chloride Carbon Dioxide Anion Gap BUN Creatinine Estim Creat Clear Calc Estimated GFR POC Glucose 111 97 136 H Random Glucose Lactic Acid Lactic Acid F/U @ 2Hr Lactic Acid F/U @ 4Hr Calcium Phosphorus Magnesium Total Bilirubin AST ALT Alkaline Phosphatase Lactate Dehydrogenase Total Creatine Kinase Troponin I High Sens B-Natriuretic Peptide Total Protein Albumin TSH Blood Type Antibody Screen Crossmatch 12/15/24 12/15/24 12/15/24 21:10 21:19 21:25 WBC Cancelled RBC Cancelled Hgb Cancelled Hct Cancelled MCV Cancelled MCH Cancelled MCHC Cancelled RDW Cancelled Plt Count Cancelled MPV Cancelled Immature Gran % (Auto) Cancelled Neut % (Auto) Cancelled Lymph % (Auto) Cancelled [place] % (Auto) Cancelled Eos % (Auto) Cancelled Baso % (Auto) Cancelled Lymph # (Auto) Cancelled [place] # (Auto) Cancelled Eos # (Auto) Cancelled Baso # (Auto) Cancelled Abs Immat Gran (auto) Cancelled Absolute Neuts (auto) Cancelled Absolute Nucleated RBC Cancelled Nucleated RBC % (auto) Cancelled Neutrophils % (Manual) Band Neutrophils % Lymphocytes % (Manual) Atypical Lymphs % (Man) Monocytes % (Manual) Metamyelocytes % Promyelocytes % Abs Neuts (Manual) Lymphocytes # (Manual) Atyp Lymphs # (Manual) Platelet Estimate Plt Morphology Comment RBC Morphology Microcytosis [place] Cells Acanthocytes (Spur) Schistocytes Smear Path Review PT 27.2 H D INR 2.4 H APTT 74.8 H* D Fibrinogen 198 L D-Dimer High Sensitivty 2158 [id number] Activity Intrp VBG pH 7.56 H VBG pCO2 31 VBG pO2 63 VBG HCO3 28 H VBG O2 Saturation 93.0 VBG Base Excess 5.9 Sodium 136 Potassium 3.7 D Chloride 102 Carbon Dioxide 25 Anion Gap 13 BUN 26 H Creatinine 1.75 H Estim Creat Clear Calc 36.0 Estimated GFR 40 POC Glucose Random Glucose 138 H Lactic Acid 4.2 H* Lactic Acid F/U @ 2Hr Lactic Acid F/U @ 4Hr Calcium 6.9 L D Phosphorus 3.7 Magnesium 1.9 Total Bilirubin 1.7 H AST 432 H ALT 304 H Alkaline Phosphatase 258 H Lactate Dehydrogenase 665 H Total Creatine Kinase 61 Troponin I High Sens 21.6 D B-Natriuretic Peptide 34696 H Total Protein 3.3 L Albumin 1.9 L TSH Blood Type Antibody Screen Crossmatch 12/15/24 12/16/24 12/16/24 21:59 00:25 00:33 WBC 0.5 L* RBC 2.38 L D Hgb 7.0 L* D Hct 21.7 L D MCV 91.2 D MCH 29.4 MCHC 32.3 RDW 17.7 H Plt Count 9 L* D MPV Immature Gran % (Auto) Neut % (Auto) Lymph % (Auto) [place] % (Auto) Eos % (Auto) Baso % (Auto) Lymph # (Auto) [place] # (Auto) Eos # (Auto) Baso # (Auto) Abs Immat Gran (auto) Absolute Neuts (auto) Absolute Nucleated RBC 0.000 Nucleated RBC % (auto) 0.0 Neutrophils % (Manual) 36 L Band Neutrophils % 0 L Lymphocytes % (Manual) 40 Atypical Lymphs % (Man) 20 H Monocytes % (Manual) Metamyelocytes % Promyelocytes % 4 Abs Neuts (Manual) 0.2 L Lymphocytes # (Manual) 0.2 L Atyp Lymphs # (Manual) 0.1 Platelet Estimate DECREASED Plt Morphology Comment NORMAL RBC Morphology NOTED Microcytosis 3+ (>30) [place] Cells 2+ (3-5) Acanthocytes (Spur) Schistocytes 2+ (3-5) Smear Path Review PT INR APTT Fibrinogen D-Dimer High Sensitivty [id number] Activity Intrp VBG pH VBG pCO2 VBG pO2 VBG HCO3 VBG O2 Saturation VBG Base Excess Sodium Potassium Chloride Carbon Dioxide Anion Gap BUN Creatinine Estim Creat Clear Calc Estimated GFR POC Glucose 107 Random Glucose Lactic Acid Lactic Acid F/U @ 2Hr 6.3 H* Lactic Acid F/U @ 4Hr Calcium Phosphorus Magnesium Total Bilirubin AST ALT Alkaline Phosphatase Lactate Dehydrogenase Total Creatine Kinase Troponin I High Sens B-Natriuretic Peptide Total Protein Albumin TSH Blood Type Antibody Screen Crossmatch 12/16/24 12/16/24 12/16/24 01:15 03:09 03:12 WBC 0.2 L* RBC 1.92 L Hgb 5.6 L* Hct 16.9 L* D MCV 88.0 MCH 29.2 MCHC 33.1 RDW 17.5 H Plt Count 9 L* MPV 12.1 Immature Gran % (Auto) Cancelled Neut % (Auto) Cancelled Lymph % (Auto) Cancelled [place] % (Auto) Cancelled Eos % (Auto) Cancelled Baso % (Auto) Cancelled Lymph # (Auto) Cancelled [place] # (Auto) Cancelled Eos # (Auto) Cancelled Baso # (Auto) Cancelled Abs Immat Gran (auto) Cancelled Absolute Neuts (auto) Cancelled Absolute Nucleated RBC 0.000 Nucleated RBC % (auto) 0.0 Neutrophils % (Manual) 6 L Band Neutrophils % 21 H Lymphocytes % (Manual) 63 H Atypical Lymphs % (Man) Monocytes % (Manual) 3 Metamyelocytes % 7 Promyelocytes % Abs Neuts (Manual) 0.1 L Lymphocytes # (Manual) 0.1 L Atyp Lymphs # (Manual) Platelet Estimate DECREASED Plt Morphology Comment NORMAL RBC Morphology NOTED Microcytosis [place] Cells 1+ (0-2) Acanthocytes (Spur) 1+ (0-2) Schistocytes 1+ (0-2) Smear Path Review PT INR APTT Fibrinogen D-Dimer High Sensitivty [id number] Activity Intrp VBG pH VBG pCO2 VBG pO2 VBG HCO3 VBG O2 Saturation VBG Base Excess Sodium Potassium Chloride Carbon Dioxide Anion Gap BUN Creatinine Estim Creat Clear Calc Estimated GFR POC Glucose 90 74 Random Glucose Lactic Acid Lactic Acid F/U @ 2Hr Lactic Acid F/U @ 4Hr 7.9 H* Calcium Phosphorus Magnesium Total Bilirubin AST ALT Alkaline Phosphatase Lactate Dehydrogenase Total Creatine Kinase Troponin I High Sens B-Natriuretic Peptide 18664 H Total Protein Albumin TSH Blood Type B Positive Antibody Screen NEGATIVE Crossmatch See Detail 12/16/24 12/16/24 12/16/24 04:25 04:27 05:30 WBC RBC Hgb Hct MCV MCH MCHC RDW Plt Count MPV Immature Gran % (Auto) Neut % (Auto) Lymph % (Auto) [place] % (Auto) Eos % (Auto) Baso % (Auto) Lymph # (Auto) [place] # (Auto) Eos # (Auto) Baso # (Auto) Abs Immat Gran (auto) Absolute Neuts (auto) Absolute Nucleated RBC Nucleated RBC % (auto) Neutrophils % (Manual) Band Neutrophils % Lymphocytes % (Manual) Atypical Lymphs % (Man) Monocytes % (Manual) Metamyelocytes % Promyelocytes % Abs Neuts (Manual) Lymphocytes # (Manual) Atyp Lymphs # (Manual) Platelet Estimate Plt Morphology Comment RBC Morphology Microcytosis [place] Cells Acanthocytes (Spur) Schistocytes Smear Path Review PT 34.4 H D INR 3.0 H APTT 80.8 H* Fibrinogen 180 L D-Dimer High Sensitivty [id number] Activity Intrp VBG pH 7.61 H* VBG pCO2 26 VBG pO2 64 VBG HCO3 27 H VBG O2 Saturation TNP VBG Base Excess 5.5 Sodium 138 Potassium 3.3 Chloride 100 Carbon Dioxide 22 Anion Gap 19 BUN 27 H Creatinine 1.77 H Estim Creat Clear Calc 35.6 Estimated GFR 39 POC Glucose 48 L* Random Glucose 112 Lactic Acid Lactic Acid F/U @ 2Hr Lactic Acid F/U @ 4Hr Calcium 7.6 L D Phosphorus 2.8 Magnesium 1.8 Total Bilirubin 2.4 H AST 396 H ALT 262 H Alkaline Phosphatase 217 H Lactate Dehydrogenase Total Creatine Kinase Troponin I High Sens B-Natriuretic Peptide Total Protein 3.4 L Albumin 2.2 L TSH 7.37 H Blood Type Antibody Screen Crossmatch 12/16/24 06:27 WBC RBC Hgb Hct MCV MCH MCHC RDW Plt Count MPV Immature Gran % (Auto) Neut % (Auto) Lymph % (Auto) [place] % (Auto) Eos % (Auto) Baso % (Auto) Lymph # (Auto) [place] # (Auto) Eos # (Auto) Baso # (Auto) Abs Immat Gran (auto) Absolute Neuts (auto) Absolute Nucleated RBC Nucleated RBC % (auto) Neutrophils % (Manual) Band Neutrophils % Lymphocytes % (Manual) Atypical Lymphs % (Man) Monocytes % (Manual) Metamyelocytes % Promyelocytes % Abs Neuts (Manual) Lymphocytes # (Manual) Atyp Lymphs # (Manual) Platelet Estimate Plt Morphology Comment RBC Morphology Microcytosis [place] Cells Acanthocytes (Spur) Schistocytes Smear Path Review PT INR APTT Fibrinogen D-Dimer High Sensitivty [id number] Activity Intrp VBG pH VBG pCO2 VBG pO2 VBG HCO3 VBG O2 Saturation VBG Base Excess Sodium Potassium Chloride Carbon Dioxide Anion Gap BUN Creatinine Estim Creat Clear Calc Estimated GFR POC Glucose 86 Random Glucose Lactic Acid Lactic Acid F/U @ 2Hr Lactic Acid F/U @ 4Hr Calcium Phosphorus Magnesium Total Bilirubin AST ALT Alkaline Phosphatase Lactate Dehydrogenase Total Creatine Kinase Troponin I High Sens B-Natriuretic Peptide Total Protein Albumin TSH Blood Type Antibody Screen Crossmatch Microbiology Microbiology Results: Microbiology 12/10/24 18:16 Blood - Venous Blood Culture - Final No growth after 5 days. 12/10/24 17:47 Blood - Venous Blood Culture - Final No growth after 5 days. Progress Note: A&P Assessment and plan (1) Atrial fibrillation: Status: Acute (2) Consumption coagulopathy: Status: Acute (3) Transaminitis: Status: Acute (4) ESRD (end stage renal disease) on dialysis: Status: Acute (5) Aspiration pneumonia: Status: Acute (6) Acute respiratory failure: Status: Acute Plan Neuro: Acute encephalopathy possibly due to hypoxic ischemic brain injury did not do hypothermia protocol due to ongoing bleeding. will get MRI brain tomorrow if there is no good neurological recovery On propofol for sedation will taper to look for neurological status Close neurological status monitoring in the ICU every hour Cardiac: Shock: Possibly secondary to cardiac arrest On Levophed and vasopressin support, titrate Levophed to keep map above 65 mm Hg Cardiac arrest: unclear etiology, aspiration was noted but that might be possibly posterior chest downtime was about 5-8 minutes prior to ROSC Respiratory: Acute hypoxemic respiratory failure due to aspiration pneumonia Currently on ventilator support On PRVC mode FiO2 60%, PEEP 5, TV 420 , RR 16 Peak pressures and plateau pressures are under the curve Ventilator management bundle with head end elevation, aspiration precaution, chlorhexidine mouthwash, daily awakening trials, daily spontaneous breathing trials GI: We will start on tube feeds Hepatitis C positive need to figure out more info about treatment Renal: ESRD on schedule through left arm AV fistula, has some urine output. planned for additional session today given need for multiple blood products We will closely monitor I's and O's Avoid nephrotoxic medications Heme: hemolytic anemia: started on solumedrol 125m q6h for hemolysis we will taper as tolerated tolerated will give 2 platelet, 4 FFP and 2 PRBC transfusions hemant negative, haptoglobin low, bili 2.4, LDH in 600s, AST and ALT elevated. Severe thrombocytopenia secondary to hemolysis Severe neutropenia possibly due to bone marrow suppression Coagulopathy: Given the fibrinogen of 176 it is unlikely to be a DIC, INR up to 3 We will transfuse 4 units of FFP and then repeat INR this afternoon Endocrine: Blood sugars under control Sliding scale insulin as needed Infectious disease: We will send pancultures started on empiric vancomycin and meropenem will get MRSA nares and if negative will take vanc off Musculoskeletal: Decubitus ulcer prevention protocol Lines: Peripheral Prophylaxis: Heparin, pantoprazole Patient is critically ill with multiple organ failures including acute encephalopathy, cardiogenic shock on multiple vasopressor support, acute respiratory failure on ventilator support, end-stage renal disease, severe hemolysis, transaminitis. Critical care time spent is about 60 minutes on ventilator management, sedation management, managing patient's multiple vasopressor drips, close hemodynamic monitoring, multiple blood products transfusion in this patients with end-stage renal disease, managing hemodynamic stability during dialysis at this time is excluding any procedural time Quality Stroke Does the patient have a stroke diagnosis?: No VTE Prior VTE?: No VTE Risk Level:: Medical - moderate - high VTE Device Contraindication: N/A - Device Ordered VTE Drug Contraindication: Treatment Not Indicated
[2024-12-16] MEDS: Chlorhexidine Gluc Oral Rinse 15 ML MOUTHWASH BUCCAL ×2 (09:02→14:59)
[2024-12-16 09:05] LABS: Glucose, Whole Blood 75 mg/dL (60-115)
[2024-12-16 09:56] LABS: Glucose, Whole Blood 49 mg/dL (60-115)
[2024-12-16 10:03] LABS: Venous Blood Gas Refer to POC result
[2024-12-16 10:03] LABS: VBG Base Excess 2.1 mmol/L; VBG HCO3 24 mmol/L (22-26); VBG pCO2 28 mmHg; VBG pH 7.54 (7.32-7.43); VBG pO2 214 mmHg
[2024-12-16 10:16] LABS: Lactic Acid 9.6 mmol/L (0.5-2.0)
[2024-12-16 10:20] LABS: Glucose, Whole Blood 94 mg/dL (60-115)
[2024-12-16 10:21] LABS: Troponin-I High Sensitivity 24.9 ng/L (<3.5-35.0)
--- NOTE | 2024-12-16 10:58 | MHC.CLN ---
PT IS MODERATELY MALNOURISHED PT WITH MILDLY DEPLETED SUBCUTANEOUS FAT AND MUSCLE MASS WITH 25% NONSIGNIFICANT WT LOSS X 2 YEARS PT IS NOW INTUBATED AND SEDATED IN ICU DISCUSSED AT ROUNDS WITH MD CHAPARRO TO START RECOMMEND NEPRO AT MAX GOAL RATE 45ML/HR WITH 240ML FREE WATER Q 8 HRS TO PROVIDE 1944KCALS (30KCALS/KG), 87G PROTEIN (1.35G/KG), 1505ML FREE WATER FROM FORMULA AND FLUSHES (23ML/KG) MONITOR TOLERANCE AND LYTES TF WILL PROMOTE WOUND HEALING WITH INCREASED PO PROTEIN SEE ALSO FULL CLINICAL NUTRITION ASSESSMENT
[2024-12-16 10:59] LABS: Glucose, Whole Blood 55 mg/dL (60-115)
[2024-12-16] MEDS: Norepinephrine Bitartrate/D5W 8 MG/250 ML PLAST..BAG 21.84 MG IVCONT (11:03)
[2024-12-16 11:11] LABS: Glucose, Whole Blood 145 mg/dL (60-115)
[2024-12-16] MEDS: Midodrine HCl 10 MG TABLET PO ×2 (11:33→13:13)
[2024-12-16 11:54] LABS: Reflex Lactate? Lactic Acid Added
[2024-12-16 12:04] LABS: Glucose, Whole Blood 127 mg/dL (60-115)
[2024-12-16 13:12] LABS: Glucose, Whole Blood 99 mg/dL (60-115)
[2024-12-16 13:23] LABS: ~Lactic Acid-LAB USE ONLY 4.9 mmol/L (0.5-2.0)
--- NOTE | 2024-12-16 13:51 | PM.HEMONCPN ---
Medical Summary - Medical Summary Date of Service: 12/16/24 Chief complaint: Patient intubated Primary Care Provider: JULIOCESAR SCHWARTZ Medical Summary: DIAGNOSIS: Coagulopathy. Bleeding. Health Benefits Specialist Utilized?: No - Finnish Speaking Interval History Interval history: Ignacio Drake is a 64 year old gentleman, with a PMH significant for?ESRD on HD T//Sat,, anemia of chronic disease, chronic thrombocytopenia, who presented to the ED from [facility], on 12/10, due to bleeding from his AV fistula. The bleeding has been unable to be controlled since having dialysis. EMS applied a pressure dressing to try to control the bleed. In the ED the provider was able to place a [id number] suture she stopped the bleeding. Patient denies any trauma to the area aside from dialysis. He denies any chest pain, shortness of breath, cough, nausea, vomiting, abdominal pain, urinary frequency, urgency or dysuria. He was also found to be hypoglycemic and hypothermic. Review of Systems Constitutional: Constitutional: Denies chills, Denies fatigue, Denies fever(s) and Denies headache(s) Eyes: Eyes: Denies change in vision and Denies photophobia ENT: Denies headache(s), Denies nasal congestion, Denies nasal discharge and Denies sore throat Cardiovascular: Cardiovascular: Denies chest pain, Denies syncope, Denies rapid heart rate, Denies leg edema and Denies dyspnea Respiratory: Respiratory: Denies chest congestion, Denies cough, Denies dyspnea and Denies wheezing Gastrointestinal: Gastrointestinal: Denies abdominal pain, Denies diarrhea, Denies nausea and Denies vomiting Genitourinary: Genitourinary: Denies dysuria, Denies urinary frequency, Denies urinary hesitancy, Denies urinary incontinence and Denies urinary urgency Musculoskeletal: Musculoskeletal: Denies myalgias Integumentary/Breasts: Skin/Breast: Denies rash Neurologic: Denies confusion, Denies syncope and Denies headache(s) Psychiatric: Psychiatric: Denies confusion Endocrine: Endocrine: Denies fatigue Hematologic/Lymphatic: Hematologic/Lymphatic: Reports easy bleeding and Denies easy bruising Allergic/Immunologic: Allergic/Immunologic: Denies wheezing PMF Medical History:) type I brittle diabetes, NSTEMI 11/2022, HLD, COPD, BPH, CHF, seizure disorder, hepatitis C, unspecified dementia, mood disorder. Hypernatremia Vitamin D deficiency Hyperkalemia Hyperparathyroidism Dysphagia Hyperlipemia Hypertension Major depressive disorder Urine retention Systolic CHF Dementia Benign prostate hyperplasia Nicotine dependence Constipation Osteoarthritis Anemia Peripheral vascular disease Atrial fibrillation Gastrointestinal hemorrhage End stage renal disease on dialysis Hepatitis C COPD (chronic obstructive pulmonary disease) Cellulitis Streptococcal sepsis, unspecified Bacteremia Septic shock Sepsis Diabetes mellitus type 1 Hypertensive cardiopathy ESRD (end stage renal disease) on dialysis Social History:) Household Members: Other Household Members Other:: [facility] Housing: [facility] Unable to assess alcohol history related to: Unable to respond Alcohol intake: never Patient Tobacco Use Status: Current everyday Tobacco user Tobacco use type: Cigarette Second Hand Smoke Exposure: No Advance Directives: Yes Review of Systems - Neurologic Reports hearing normal, Denies abnormal gait, Denies confusion, Denies syncope, Denies headache(s) PMFSH Medical History: Medical History (Last Updated 12/15/24 @ 23:35 by Ector Villar NP) Anemia Atrial fibrillation Bacteremia Benign prostate hyperplasia Cellulitis Constipation Consumption coagulopathy COPD (chronic obstructive pulmonary disease) Dementia Diabetes mellitus type 1 Dysphagia End stage renal disease on dialysis ESRD (end stage renal disease) on dialysis Gastrointestinal hemorrhage Hepatitis C Hyperkalemia Hyperlipemia Hypernatremia Hyperparathyroidism Hypertension Hypertensive cardiopathy Major depressive disorder Nicotine dependence Osteoarthritis Peripheral vascular disease Sepsis Septic shock Streptococcal sepsis, unspecified Systolic CHF Urine retention Vitamin D deficiency Social History: Social History (Last Reviewed 12/10/24 @ 21:54 by Judith Willis PA-C) Living Situation History: Household Members: Other Household Members Other:: [facility] Housing: [facility] Do you presently have visiting nurse or other home services: Do you presently have visiting nurse or other home services comment: [facility] Alcohol History: Unable to assess alcohol history related to: Unable to respond Tobacco History: Patient Tobacco Use Status: Former Tobacco user Tobacco use type: Cigarette Second Hand Smoke Exposure: No Advance Directives: Advance Directives Date on File: 06/22/22 Occupation Assessmet: service: No Current occupational status: disabled Home Medications and Allergies Current Medications: Current Medications Acetaminophen (Acetaminophen 325 Mg Tablet) 650 mg PO Q6H PRN PRN Reason: Pain, Mild 1-3,fever,headache Last Admin: 12/15/24 07:58 Dose: 650 mg Chlorhexidine Gluconate (Chlorhexidine Gluc Oral Rinse 15 Ml Mouthwash) 15 ml BUCCAL TID [facility] Last Admin: 12/16/24 09:02 Dose: 15 ml Dextrose (Dextrose 50 % 25 Gm/50 Ml Syringe) 25 gm IVPUSH Q15M PRN; Protocol PRN Reason: per Hypoglycemia Standing Ord. Last Admin: 12/15/24 16:16 Dose: 25 gm Dextrose (Dextrose 50 % 25 Gm/50 Ml Syringe) 25 gm IVPUSH ONCE PRN PRN Reason: hypoglycemia Last Admin: 12/16/24 10:58 Dose: 25 gm Glucose (Glucose Gel 15 Gm Gel..Gram.) 15 gm PO Q15M PRN; Protocol PRN Reason: per Hypoglycemia Standing Ord. Last Admin: 12/13/24 04:07 Dose: 15 gm Dextrose (D10) 1,000 mls @ 60 mls/hr IVCONT .[id number] [facility] Last Admin: 12/16/24 05:47 Dose: 60 mls/hr Norepinephrine Bitartrate (Levophed) 8 mg in 250 mls @ 0 mls/hr IVCONT .Q0M [facility]; Protocol Last Admin: 12/16/24 11:03 Dose: 0.18 mcg/kg/min, 21.84 mls/hr Vancomycin HCl 500 mg/ Sodium (Chloride) 110 mls @ 110 mls/hr IV ONCE ONE Stop: 12/17/24 20:59 Vasopressin (Vasostrict) 20 unit in 100 mls @ 12 mls/hr IVCONT .Q8H20M [facility]; Protocol Last Admin: 12/16/24 10:21 Dose: 0.04 unit/min, 12 mls/hr Norepinephrine Bitartrate (Levophed) 16 mg in 250 mls @ 0 mls/hr IVCONT .Q0M [facility]; Protocol Insulin Human Lispro (Insulin Lispro 100 Unit/Ml 3 Ml Vial) 0 unit SUBCUT QIDACHS [facility]; Protocol Last Admin: 12/15/24 21:41 Dose: Not Given Levothyroxine Sodium (Levothyroxine Sodium 25 Mcg Tablet) 25 mcg PO DAILY@0600 [facility] Last Admin: 12/15/24 05:57 Dose: 25 mcg Meropenem (Meropenem 1 Gm Vial) 1 gm IVPUSH Q24H [facility] Last Admin: 12/15/24 23:17 Dose: 1 gm Methylprednisolone Sodium Succinate (Methylprednisolone Sod Succ 125 Mg Vial) 125 mg IVPUSH Q6H [facility] Last Admin: 12/16/24 09:41 Dose: 125 mg Midodrine (Midodrine Hcl 10 Mg Tablet) 10 mg PO TIDWM [facility] Last Admin: 12/16/24 13:13 Dose: 10 mg Naloxone HCl (Naloxone Hcl 0.4 Mg/Ml Vial) 0.4 mg SUBCUT Q2M PRN PRN Reason: Anaphylaxis Naloxone HCl (Naloxone Hcl Nasal 4 Mg [place]) 4 mg NOSTRILALT Q2M PRN PRN Reason: overdose Ondansetron HCl (Ondansetron Hcl 4 Mg/2 Ml Vial) 4 mg IVPUSH Q8H PRN PRN Reason: Nausea and Vomiting Pantoprazole Sodium (Pantoprazole Sodium 40 Mg/10 Ml Vial) 40 mg IVPUSH DAILY@0630 [facility] Last Admin: 12/16/24 05:50 Dose: 40 mg Sodium Chloride (0.9 % Sodium Chloride Flush 3 Ml Syringe) 3 ml IVFLUSH QSHIFT [facility] Last Admin: 12/16/24 07:29 Dose: 3 ml Home Medications ?Medication ?Instructions ?Recorded ?Confirmed ?Type duloxetine 60 mg capsule,delayed 60 mg PO DAILY 06/17/22 12/10/24 History release insulin lispro 100 unit/mL See Protocol subcut TIDAC 06/17/22 12/10/24 History subcutaneous solution (Humalog U-100 Insulin) mirtazapine 15 mg tablet 15 mg PO BEDTIME 06/17/22 12/10/24 History tamsulosin 0.4 mg capsule 1 cap PO BEDTIME 06/17/22 12/10/24 History melatonin 5 mg tablet 5 mg PO BEDTIME Sleep 11/20/22 12/10/24 History oxycodone 5 mg tablet 5 mg PO Q6H PRN Pain (Scale Score 11/20/22 12/10/24 History 4-6) cholecalciferol (vitamin D3) 1,250 1,250 mcg PO WE 11/22/24 12/10/24 History mcg (50,000 unit) capsule cyanocobalamin (vitamin B-12) 1,000 mcg PO DAILY 11/22/24 12/10/24 History 1,000 mcg tablet epinephrine 0.3 mg/0.3 mL 0.3 mg IM Q5M PRN Anaphylaxis 11/22/24 12/10/24 History injection, auto-injector (EpiPen) ergocalciferol (vitamin D2) 1,250 1,250 mcg PO WE@0900 11/22/24 12/10/24 History mcg (50,000 unit) capsule folic acid 1 mg tablet 1 mg PO DAILY 11/22/24 12/10/24 History glucagon 1 mg/0.2 mL subcutaneous 1 mg subcut Q15M PRN low BS 11/22/24 12/10/24 History solution (Gvoke) naloxone 0.4 mg/mL injection 0.4 mg subcut Q2M PRN Anaphylaxis 11/22/24 12/10/24 History solution naloxone 4 mg/actuation nasal spray 4 mg intranasal Q2M PRN overdose 11/22/24 12/10/24 History thiamine HCl (vitamin B1) 100 mg 100 mg PO DAILY 11/22/24 12/10/24 History tablet carvedilol 3.125 mg tablet 3.125 mg PO BID 12/10/24 12/10/24 History ergocalciferol (vitamin D2) 1,250 1,250 mcg PO QMONTH 12/10/24 12/10/24 History mcg (50,000 unit) capsule (Vitamin D2) insulin glargine 100 unit/mL (3 1 unit subcut BEDTIME 12/10/24 12/10/24 History mL) subcutaneous pen (Lantus Solostar U-100 Insulin) vit B complex and vit C 1 tab PO DAILY 12/10/24 12/10/24 History no.24-ferrous fum 66 mg-folic 1,000 mcg tablet (Nephron FA) Allergies Allergy/AdvReac Type Severity Reaction Status Date / Time No Known Allergies Allergy Verified 12/10/24 17:12 Exam Vital signs: Vital Signs Temp 96.4 F L 12/16/24 13:23 Pulse 85 12/16/24 13:23 Resp 16 12/16/24 13:23 BP 110/50 L 12/16/24 13:23 Pulse Ox 100 12/16/24 05:00 O2 Del Method Mechanical Ventilation 12/16/24 13:00 FiO2 25 12/16/24 13:00 Intake & Output 12/15/24 12/16/24 12/16/24 18:59 06:59 18:59 Intake Total 1397 / 2580.580 1183.580 / 2580.580 2374.381 / 2374.381 Output Total 0 / 0 0 / 0 Balance 1397 / 2580.580 1183.580 / 2580.580 2374.381 / 2374.381 Urine Output (Average ml/kg/hr) 0.00 0.00 0.00 Intake: Intake, Tube Irrigant Amount 60 / 60 30 / 30 Intake (Blood Product) Amount 0 / 0 2161 / 2161 Plt Aph Pas Pathreduced(E8341) 250 / 250 Unit [id number] Plt Aph Pas Pathreduced(E8342) 244 / 244 Unit [id number] Red Blood Cells (E0336) Unit 0 / 0 350 / 350 [id number] Red Blood Cells (E0336) Unit 350 / 350 [id number] Red Blood Cells (E0336) Unit 350 / 350 [id number] Thawed Plasma (E2684) Unit 0 / 0 [id number] Thawed Plasma (E2684) Unit 0 / 0 [id number] Thawed Plasma (E2684) Unit 326 / 326 [id number] Thawed Plasma (E2720) Unit 291 / 291 [id number] Intake, IV Amount 1397 / 2520.580 1123.580 / 2520.580 183.381 / 183.381 Albumin Human 25 % 100 ml @ 133 200 / 400 200 / 400 .333 mls/hr IV Q1H [facility] Rx#: [id number] vancomycin HCL 1,500 mg In 0.9 500 / 500 % Sodium Chloride 500 ml @ 333. 333 mls/hr IV ONCE ONE Rx#: [id number] Dextrose 5 % and 0.45 % NaCl 1, 1197 / 1197 000 ml @ 80 mls/hr IVCONT . [id number] [facility] Rx#:[id number] Norepinephrine Bitartrate/D5W 8 146.982 / 146.982 98.408 / 98.408 mg In 250 ml @ Per Protocol IVCONT .Q0M [facility] Rx#:[id number] Vasopressin 20 unit In 100 ml @ 21.6 / 21.6 49.6 / 49.6 0.04 UNIT/MIN 12 mls/hr IVCONT .Q8H20M [facility] Rx#:[id number] propofoL 1,000 mg In 100 ml @ 25.998 / 25.998 35.373 / 35.373 Per Protocol IVCONT .Q0M [facility] Rx #:[id number] Output: Output, Urine Amount 0 / 0 0 / 0 Other: Number of Bowel Movements 2 Number of Unmeasured Emesis 1 Episodes Last Bowel Movement 12/09/24 12/09/24 12/16/24 Stool Incontinent Stool Amount Copious Stool Color Antunez Stool Consistency Semi Formed Emesis Color Archer Weight 58.3 kg 58.3 kg [place] Weight in Grams 01504 Weight 58.3 kg BMI result Body Mass Index 19.0 - Constitutional Present: mild distress - Routine HEENT Exam Head: Present: normal inspection, normocephalic - Detailed Neurological Exam: Coma Scale Eye Opening: Spontaneous (4) Data - Labs CBC & Chem 7: 12/16/24 14:10 12/16/24 04:25 Labs: Laboratory Last Values WBC 0.2 X10*3/uL (4.8-10.8) L* 12/16/24 03:12 RBC 1.92 X10*6/uL (4.60-5.80) L 12/16/24 03:12 Hgb 5.6 g/dl (14.0-18.0) L* 12/16/24 03:12 Hct 16.9 % (42.0-52.0) L* D 12/16/24 03:12 MCV 88.0 fL (80.0-98.0) 12/16/24 03:12 MCH 29.2 pg (27.0-33.0) 12/16/24 03:12 MCHC 33.1 g/dl (31.0-36.0) 12/16/24 03:12 RDW 17.5 % (11.0-16.0) H 12/16/24 03:12 Plt Count 9 X10*3/uL (160-400) L* 12/16/24 03:12 MPV 12.1 fL (9.4-12.4) 12/16/24 03:12 Immature Gran % (Auto) Cancelled 12/16/24 03:12 Neut % (Auto) Cancelled 12/16/24 03:12 Lymph % (Auto) Cancelled 12/16/24 03:12 [place] % (Auto) Cancelled 12/16/24 03:12 Eos % (Auto) Cancelled 12/16/24 03:12 Baso % (Auto) Cancelled 12/16/24 03:12 Lymph # (Auto) Cancelled 12/16/24 03:12 [place] # (Auto) Cancelled 12/16/24 03:12 Eos # (Auto) Cancelled 12/16/24 03:12 Baso # (Auto) Cancelled 12/16/24 03:12 Abs Immat Gran (auto) Cancelled 12/16/24 03:12 Absolute Neuts (auto) Cancelled 12/16/24 03:12 Absolute Nucleated RBC 0.000 X10*3/uL (0.0-0.012) 12/16/24 03:12 Nucleated RBC % (auto) 0.0 /100WBC (0.0-0.2) 12/16/24 03:12 Neutrophils % (Manual) 6 % (45-73) L 12/16/24 03:12 Band Neutrophils % 21 % (3-5) H 12/16/24 03:12 Lymphocytes % (Manual) 63 % (20-40) H 12/16/24 03:12 Atypical Lymphs % (Man) 20 % (0-6) H 12/15/24 21:59 Monocytes % (Manual) 3 % (2-11) 12/16/24 03:12 Metamyelocytes % 7 % 12/16/24 03:12 Promyelocytes % 4 % 12/15/24 21:59 Abs Neuts (Manual) 0.1 X10*3/uL (2.0-8.3) L 12/16/24 03:12 Lymphocytes # (Manual) 0.1 X10*3/uL (1.2-4.9) L 12/16/24 03:12 Atyp Lymphs # (Manual) 0.1 x10*3/uL 12/15/24 21:59 Platelet Estimate DECREASED (NORMAL) 12/16/24 03:12 Plt Morphology Comment NORMAL 12/16/24 03:12 RBC Morphology NOTED 12/16/24 03:12 Microcytosis 3+ (>30) /OIF 12/15/24 21:59 [place] Cells 1+ (0-2) /OIF 12/16/24 03:12 Acanthocytes (Spur) 1+ (0-2) /OIF 12/16/24 03:12 Schistocytes 1+ (0-2) /OIF 12/16/24 03:12 Smear Tech's Comments VERIFIED 12/13/24 09:51 Smear Path Review SEE NOTE 12/15/24 21:59 Absolute Retic 0.011 X10*6/uL (0.026-0.095) L 12/12/24 06:28 Percent Retic 0.5 % (0.5-1.8) 12/12/24 06:28 Immature Retic Fraction 8.5 % (2.3-13.4) 12/12/24 06:28 Retic Hgb Equivalent 34.8 pg (30.0-35.0) 12/12/24 06:28 Hold Purple Top SEE NOTE 12/10/24 18:16 PT 34.4 SEC (10.9-12.4) H D 12/16/24 04:25 INR 3.0 (0.9-1.1) H 12/16/24 04:25 APTT 80.8 SEC (26.0-36.8) H* 12/16/24 04:25 Fibrinogen 180 MG/DL (259-690) L 12/16/24 04:25 D-Dimer High Sensitivty 2158 NG/ML 12/15/24 21:25 [id number] Activity Intrp 0.50 IU/mL (0.68-1.63) L 12/11/24 06:27 [id number] Inhibitor TNP 12/11/24 06:27 VBG pH 7.54 (7.32-7.43) H 12/16/24 09:59 VBG pCO2 28 mmHg 12/16/24 09:59 VBG pO2 214 mmHg 12/16/24 09:59 VBG HCO3 24 mmol/L (22-26) 12/16/24 09:59 VBG O2 Saturation TNP 12/16/24 09:59 VBG Base Excess 2.1 mmol/L 12/16/24 09:59 Sodium 138 mmol/L (135-145) 12/16/24 04:25 Potassium 3.3 mmol/L (3.3-5.1) 12/16/24 04:25 Chloride 100 mmol/L (96-108) 12/16/24 04:25 Carbon Dioxide 22 mmol/L (22-29) 12/16/24 04:25 Anion Gap 19 (12-20) 12/16/24 04:25 BUN 27 mg/dL (9-16) H 12/16/24 04:25 Creatinine 1.77 mg/dL (0.5-1.4) H 12/16/24 04:25 Estim Creat Clear Calc 35.6 12/16/24 04:25 Estimated GFR 39 12/16/24 04:25 POC Glucose 99 mg/dL (60-115) 12/16/24 13:08 Random Glucose 112 mg/dL (60-115) 12/16/24 04:25 Estimat Average Glucose 157 mg/dL 12/13/24 12:57 Hemoglobin A1c % 7.1 % (<6.0) H 12/13/24 12:57 Haptoglobin < 8 mg/dL (40-268) L 12/12/24 06:28 Lactic Acid 9.6 mmol/L (0.5-2.0) H* 12/16/24 09:48 Lactic Acid F/U @ 2Hr 4.9 mmol/L (0.5-2.0) H* 12/16/24 12:43 Lactic Acid F/U @ 4Hr 7.9 mmol/L (0.5-2.0) H* 12/16/24 03:12 Calcium 7.6 mg/dL (8.4-10.2) L D 12/16/24 04:25 Phosphorus 2.8 mg/dL (2.7-4.5) 12/16/24 04:25 Magnesium 1.8 mg/dL (1.6-2.6) 12/16/24 04:25 Total Bilirubin 2.4 mg/dL (0.0-1.0) H 12/16/24 04:25 AST 396 U/L (5-37) H 12/16/24 04:25 ALT 262 U/L (0-40) H 12/16/24 04:25 Alkaline Phosphatase 217 U/L (39-117) H 12/16/24 04:25 Lactate Dehydrogenase 665 U/L (118-273) H 12/15/24 21:25 Total Creatine Kinase 61 U/L (38-174) 12/15/24 21:25 Troponin I High Sens 24.9 ng/L (<3.5-35.0) 12/16/24 09:48 B-Natriuretic Peptide 02670 pg/mL (<100) H 12/16/24 03:12 Total Protein 3.4 g/dL (6.5-8.0) L 12/16/24 04:25 Albumin 2.2 g/dL (3.5-5.0) L 12/16/24 04:25 Lipase 7 U/L (8-78) L 12/10/24 18:16 TSH 7.37 uIU/mL (0.32-4.0) H 12/16/24 04:25 Free T4 0.56 ng/dL (0.71-1.85) L 12/14/24 12:11 Random Cortisol 35.6 ug/dL 12/14/24 12:11 Ethyl Alcohol < 10 mg/dL 12/10/24 17:47 Influenza Type A (PCR) NEGATIVE (Negative) 12/10/24 17:47 Influenza Type B (PCR) NEGATIVE (Negative) 12/10/24 17:47 RSV RNA Qual (PCR) NEGATIVE (Negative) 12/10/24 17:47 SARS-CoV-2 RNA (RT-PCR) NEGATIVE (Negative) 12/10/24 17:47 Blood Type B Positive 12/16/24 03:12 Antibody Screen NEGATIVE 12/16/24 03:12 SRUTHI, Polyspecific NEGATIVE 12/10/24 22:48 Positive SRUTHI Work-up TNP 12/10/24 22:48 Crossmatch See Detail 12/16/24 03:12 Assessment and Plan Patient Active problem list reviewed?: Yes (1) Pancytopenia Status: Acute Assessment and plan: 1. This is a 64-year-old male with PMH significant for?ESRD on HD /, type I brittle diabetes, NSTEMI 11/2022, HLD, COPD, BPH, CHF, seizure disorder, anemia of chronic disease, chronic thrombocytopenia, hepatitis C, unspecified dementia, mood disorder, multifocal pneumonia, Zechariah positive hemolytic anemia in early November 2024, who was admitted on 12/11/2024 for bleeding from AV fistula site and diagnosed with coagulopathy. He was also noted to be anemic because of bleeding with a hemoglobin that was 6.4 gram/dL, previously 10.6 g per dL. PTT was also elevated at 78.4, fibrinogen was 145, LDH was 517. Haptoglobin was less than 8 but Zechariah test was now negative. [id number] level was not low enough to qualify for TTP. Patient has had numerous hospitalizations since 2021 both at [facility] and [facility]. On 12/13/2024 his white count was 10.0 with a hemoglobin of 10.1 and platelets of 40 K. his PT was 13 seconds, APTT was 40.6 after having received cryoprecipitate on 12/10/2024. On the night of 12/15/24 patient became bradycardic, unresponsive and pulseless. CPR was initiated. Code blue lasted 8 minutes after which he was transferred to the ICU. Blood work right after that revealed a total WBC count of 0.5 with hemoglobin of 7 gram/dL and platelets of 9, PTT again increased to 74.8, INR of 2.4. His reticulocyte count is quite low at 0 0.011. Above hematological picture raises concern for aplastic anemia with superimposed DIC, sepsis, malignancy associated DIC as well as acute leukemia. I discussed above possibilities with ICU attending. Given overall clinical condition of the patient with multiple comorbidities, his prognosis is very guarded. Further assessment with bone marrow aspiration/biopsy he has not feasible at this time. Agree with supportive care, transfusion support for now. Goals of care, transitioning to comfort care is advisable at this time. - Time Spent With Patient Time Spent with Patient (in minutes): 15
[2024-12-16 14:27] LABS: Hematocrit 27.2 % (42.0-52.0); Hemoglobin 9.5 g/dl (14.0-18.0); Mean Corpuscular HGB Conc 34.9 g/dl (31.0-36.0); Mean Corpuscular Hemoglobin 30.2 pg (27.0-33.0); Mean Corpuscular Volume 86.3 fL (80.0-98.0); Mean Platelet Volume 9.4 fL (9.4-12.4); Red Blood Count 3.15 X10*6/uL (4.60-5.80)
[2024-12-16 14:29] LABS: White Blood Count 0.5 X10*3/uL (4.8-10.8)
[2024-12-16 14:30] LABS: Platelet Count 33 X10*3/uL (160-400)
[2024-12-16 14:31] LABS: INTERNATIONAL NORM RATIO 1.6 (0.9-1.1); Prothrombin Time 18.7 SEC (10.9-12.4)
[2024-12-16 14:36] LABS: OBS Int Ctl Valid YES; OBS1 POSITIVE (NEGATIVE)
[2024-12-16 14:58] LABS: Reflex Lactate? 2 Y
--- NOTE | 2024-12-16 15:26 | MHC.CM.PN ---
Pt continues on ventilatory support: received blood products and will start on pressors: HCP on file from 2021 lists pt's sisters from [place] as Proxy #1 & 2 however, pt's sister Virginia who lives local states she is the new proxy: call placed to [facility]: verbal confirmation with RN that pt's HCP is [place]. Requested copy to be faxed to [phone] - awaiting results. CM to follow for finalization of d/c planning.
[2024-12-16 15:37] LABS: Glucose, Whole Blood 110 mg/dL (60-115)
[2024-12-16 15:40] LABS: ~Lactic Acid-LAB USE ONLY 12.7 mmol/L (0.5-2.0)
--- NOTE | 2024-12-16 15:45 | P.DN_ITS ---
Discharge Sum: Prov Provider Primary care physician: JULIOCESAR SCHWARTZ Consults: 12/10/24 21:41 Consult to Hematology / Oncology Routine Consulting Provider: Michell Mendoza Reason for consultation: ?DIC Has provider been notified: No Consult to Vascular Surgery Routine Consulting Provider: [facility] V[facility] Services Reason for consultation: bleeding fistula Has provider been notified: No 12/10/24 21:42 Consult to Nephrology Routine Consulting Provider: [facility] Reason for consultation: ESRD on HD TThSa. concern for TTP/HUS? Has provider been notified: No 12/15/24 22:41 Consult to Wound Care Routine Reason for consultation: MULTIPLE WOUNDS 12/16/24 08:43 Consult to Hematology / Oncology Stat Consulting Provider: [facility] Oncology/Hematology Reason for consultation: severe pancytopenia Has provider been notified: No Pronouncing clinician: Jeff Wall Discharge Sum: Diag Contributing Factors (1) Atrial fibrillation: (2) Consumption coagulopathy: (3) Transaminitis: (4) ESRD (end stage renal disease) on dialysis: (5) Aspiration pneumonia: (6) Acute respiratory failure: Discharge Sum: Summary Date and Time Date of admission: 12/10/24 19:21 Date of : 12/16/24 Time of : 15:37 Summary Details: 64-year-old male with a past medical history of end-stage renal disease (T /Yoon/Sat), type 1 diabetes mellitus, congestive heart failure, COPD, seizure disorder, anemia of chronic disease, chronic thrombocytopenia, hepatitis-C, unspecified dementia was admitted to the hospital due to bleeding through the AV fistula. He was transfused blood, his hemoglobin remained stable around 10 so was planned for discharge. But unfortunately and unexpectedly patient went into cardiac arrest last night with a down time of 8 minutes prior to ROSC, he had aspirated and was intubated and placed on ventilator support. This morning labs suggestive of severe hemolysis with hemoglobin dropping down to 5.5, platelet dropping down to 9000 and WBC count 0.2 K. his bili was 2.4, LDH was not 600s, low haptoglobin and AST ALT was elevated too. Patient was started on high-dose Solu-Medrol for the management of hemolytic disease, he was dialyzed and was transfused 2 unit PRBC, 2 units platelets and 4 units FFP with the hemodialysis. We had a discussion with patient's sister about his current condition, comorbidities, his catabolic state and he was made DNR. This afternoon around 15:20 p.m. he went into bradycardia and then asystole. He was pronounced at 15:37 PM, family was notified. Additional Data Confirmation of as documented by pronouncing clinician: no pulse and no respirations Family: contacted Attending physician: Jeff Wall MD Was code activated?: No Autopsy requested?: No soft work wrapper examiner notified?: No Organ bank notified?: No Advance directives: No Hospice patient?: No
[2024-12-16 16:05] LABS: MRSA Nasal PCR NEGATIVE (Negative); SA Nasal PCR POSITIVE (Negative)
--- NOTE | 2024-12-16 17:07 | PC.NURSE ---
Assumed care of patient 0700. Patient has negative cough, negative gag reflex. Does not track voices or follow commands. Negative pain response. Propofol gtt@10. Patient requiring Vasopressin @0.04 and Levophed @0.1. Increasing Levophed requirements. Patient has orders for hemodialysis. RN, RT and ICU techs assisted with moving patient room from 255 to 254 with dialysis capability. Pt slid to [facility] ICU turning bed. Pt tolerated transport well. 2 large/copious bowel movements passed. Small amount of criss red staining to bath wipes. Stool appears bowden/brown, semiformed. Occult blood stool sample sent to lab positive. Wound RN assessed skin approx 10:00. 12:30 Patient neuro status improved, making eye contact, tracks voices, follows simple commands. PSV trial started per MD with settings PSV 8/5.0, 40%. 13:30 bare hugger treatment restarted for low temp 95.9 F. approx 10:20-14:00 Patient received HD treatment. 8 blood products given total: 2 RBC, 2 PLT, 4 FFP. Repeat CBC labs obtained after blood products given, H+H improved from 5.6/16.9 to 9.5/27.2. WBC was 0.2, now 0.5. PLT was 9, now 33. MD notified of new results. Patient had 3rd large bowel movement. Left arm fistula site clamped and awaiting hemostasis. Approx 15:25 Patient turned to left side by RN and tech for peter care. Patient became bradycardic HR 57-60, ST depression. Pt returned to flat position and apenic on ventillator with PSV settings. Pt manually ambu bagged with 5.0 PEEP valve. Carotid pulse present but thready. ICU MD and RT paged stat to ICU. Patient code status DNR. Tele monitor showed PEA to asystole. No doppler pulse present. Per MD no medications at this time. Asystole confirmed with echo at bedside. Time of pronounced 15:37. Next of kin Virginia (Sister) and Aaliyah Drake (sister) notified by MD. Plant Breeder Scientist notified. Virginia (sister) came to visit patient. Belongings offered at this time, Virginia asked to keep belongings with patient. Post mortem care provided.
--- NOTE | 2024-12-21 14:40 | PC.NURSE ---
Spoke with the patient's sister Aaliyah in [facility]. The sister gave me permission to release the patient to [facility] today.
== END 2024-12-16 15:37 | disposition expired | DRG 314 ==
LOC: HO.ED 18:55 → HO.EDOVER 22:26 → HO.IMC 23:51 → HO.ICU 12-15 20:49
PROVIDERS: Internal Medicine; Internal Medicine Medical Oncology; Physician Assistant; Registered Nurse Community Health; Admitting Provider Student in an Organized Health Care Education/Training Program; Emergency Provider Emergency Medicine Emergency Medical Services; PCP Emergency Medicine; Visit Provider Internal Medicine Critical Care Medicine
DX: T82.838A Hemorrhage due to vascular prosthetic devices, implants and grafts, initial encounter (principal); A41.9 Sepsis, unspecified organism; D65 Disseminated intravascular coagulation [defibrination syndrome]; N18.6 End stage renal disease; R65.21 Severe sepsis with septic shock; J96.01 Acute respiratory failure with hypoxia; J69.0 Pneumonitis due to inhalation of food and vomit; D62 Acute posthemorrhagic anemia; I50.22 Chronic systolic (congestive) heart failure; D59.0 Drug-induced autoimmune hemolytic anemia; G93.49 Other encephalopathy; Y82.8 Other medical devices associated with adverse incidents; N40.0 Benign prostatic hyperplasia without lower urinary tract symptoms; E03.9 Hypothyroidism, unspecified; F39 Unspecified mood [affective] disorder; R68.0 Hypothermia, not associated with low environmental temperature; B19.20 Unspecified viral hepatitis C without hepatic coma; E10.22 Type 1 diabetes mellitus with diabetic chronic kidney disease; F03.90 Unspecified dementia, unspecified severity, without behavioral disturbance, psychotic disturbance, mood disturbance, and anxiety; E78.5 Hyperlipidemia, unspecified; G40.909 Epilepsy, unspecified, not intractable, without status epilepticus; I46.9 Cardiac arrest, cause unspecified; I48.91 Unspecified atrial fibrillation; T36.0X5A Adverse effect of penicillins, initial encounter; E10.649 Type 1 diabetes mellitus with hypoglycemia without coma; Z20.822 Contact with and (suspected) exposure to COVID-19; Z99.2 Dependence on renal dialysis; Z87.891 Personal history of nicotine dependence; Z79.4 Long term (current) use of insulin; Z79.890 Hormone replacement therapy; Z79.899 Other long term (current) drug therapy
CPT/HCPCS: 0241U; 36415; 71045; 71275; 74178; 80048; 80053; 80307; 82272; 82533; 82550; 82803; 82947; 83010; 83036; 83605; 83615; 83690; 83735; 83880; 84100; 84439; 84443; 84484; 85007; 85025; 85027; 85045; 85335; 85379; 85384; 85397; 85610; 85730; 86850; 86880; 86900; 86901; 86923; 87040; 87640; 87641; 90999; 93005; 94002; 94003; 94799; 99285; J1171; J2185; J2470; J2598; J2704; J2919; J3371; J3430; J7120; P9012; P9016; P9017; P9047; P9073; Q9967

== ENCOUNTER → 2024-12-10 17:40 | Outpatient (BNV) | payer OTHER, SELFPAY | PROVIDERS: Admitting Provider Student in an Organized Health Care Education/Training Program; Emergency Provider Emergency Medicine Emergency Medical Services; Visit Provider Internal Medicine Cardiovascular Disease | DX: R94.31 Abnormal electrocardiogram [ECG] [EKG] (principal); I95.9 Hypotension, unspecified; R41.82 Altered mental status, unspecified | CPT/HCPCS: 93010 ==

== ENCOUNTER 2024-12-10 19:21 | Outpatient (BNV) | payer OTHER, SELFPAY | END 2024-12-15 21:30 | PROVIDERS: Admitting Provider Student in an Organized Health Care Education/Training Program; Emergency Provider Emergency Medicine Emergency Medical Services; PCP Emergency Medicine; Visit Provider Internal Medicine Cardiovascular Disease | DX: R94.31 Abnormal electrocardiogram [ECG] [EKG] (principal); I46.9 Cardiac arrest, cause unspecified | CPT/HCPCS: 93010 ==

== ENCOUNTER 2024-12-10 19:21 | Outpatient (BNV) | payer OTHER, SELFPAY | END 2024-12-15 21:20 | PROVIDERS: Admitting Provider Student in an Organized Health Care Education/Training Program; Emergency Provider Emergency Medicine Emergency Medical Services; PCP Emergency Medicine; Visit Provider Radiology Neuroradiology | DX: J44.89 Other specified chronic obstructive pulmonary disease (principal) | CPT/HCPCS: 71045 ==

== ENCOUNTER → 2024-12-10 19:21 | Outpatient (BNV) | payer OTHER, SELFPAY | PROVIDERS: Admitting Provider Student in an Organized Health Care Education/Training Program; Emergency Provider Emergency Medicine Emergency Medical Services; PCP Emergency Medicine; Visit Provider Registered Nurse Community Health | DX: I46.9 Cardiac arrest, cause unspecified (principal); A41.9 Sepsis, unspecified organism; R65.21 Severe sepsis with septic shock; D65 Disseminated intravascular coagulation [defibrination syndrome]; J69.0 Pneumonitis due to inhalation of food and vomit; J96.00 Acute respiratory failure, unspecified whether with hypoxia or hypercapnia; R74.01 Elevation of levels of liver transaminase levels; N18.6 End stage renal disease; Z99.2 Dependence on renal dialysis | CPT/HCPCS: 99239; 99291; 99292 ==

== ENCOUNTER → 2024-12-10 19:21 | Outpatient (BNV) | payer OTHER, SELFPAY | PROVIDERS: Admitting Provider Student in an Organized Health Care Education/Training Program; Emergency Provider Emergency Medicine Emergency Medical Services; Visit Provider Physician Assistant | DX: D62 Acute posthemorrhagic anemia (principal); T68.XXXA Hypothermia, initial encounter; E16.2 Hypoglycemia, unspecified; E87.20 Acidosis, unspecified; R79.89 Other specified abnormal findings of blood chemistry | CPT/HCPCS: 99223; 99232 ==

== ENCOUNTER → 2024-12-10 19:21 | Outpatient (BNV) | payer OTHER, SELFPAY | PROVIDERS: Admitting Provider Student in an Organized Health Care Education/Training Program; Emergency Provider Emergency Medicine Emergency Medical Services; Visit Provider Internal Medicine Medical Oncology | DX: D65 Disseminated intravascular coagulation [defibrination syndrome] (principal) | CPT/HCPCS: 99222; 99232 ==

== ENCOUNTER → 2024-12-10 19:21 | Outpatient (BNV) | payer OTHER, SELFPAY | PROVIDERS: Admitting Provider Student in an Organized Health Care Education/Training Program; Emergency Provider Emergency Medicine Emergency Medical Services; Visit Provider Surgery Vascular Surgery | DX: N18.6 End stage renal disease (principal); Z99.2 Dependence on renal dialysis | CPT/HCPCS: 99222; 99232 ==